=== PATIENT | female | born 1935 | race Caucasian/White ===

== ENCOUNTER → 2018-01-28 06:56 | Outpatient (CLI) | payer MEDICARE, SELFPAY ==
[2018-01-28 07:43] LABS: Add Manual Diff / Slide Review NO; Basophils Percent Auto 0.6 % (0-2); Eosinophils Percent Auto 2.9 % (2-4); Hematocrit 38.6 % (36-46); Hemoglobin 13.2 g/dL (12.0-16.0); Mean Corpuscular HGB Conc 34.1 % (30-36); Mean Corpuscular Hemoglobin 32.8 PG (26-34); Mean Corpuscular Volume 96.1 fL (80-100); Neutrophils Absolute Auto 2200 /uL (3000-5900); Neutrophils Percent Auto 51.5 % (50-75); Platelet Count 176 X10^3/uL (150-400); Red Blood Cell Count 4.02 X10^6/uL (4.0-5.2); Red Cell Distribution Width 12.7 % (11.6-14.8); White Blood Cell Count 4.2 X10^3/uL (4.5-11.0)
[2018-01-28 07:54] LABS: Alanine Aminotransferase 34 IU/L (9-52); Albumin 4.3 g/dL (3.5-5.0); Albumin Globulin Ratio 1.4 (1.0-2.8); Alkaline Phosphatase 105 U/L (38-126); Aspartate Aminotransferase 36 IU/L (14-36); BUN Creatinine Ratio 26.3 (6-22); Bilirubin Total 0.5 mg/dL (0.2-1.3); Blood Urea Nitrogen 21 mg/dL (7-17); Calcium 9.6 mg/dL (8.4-10.2); Carbon Dioxide 32 mmol/L (22-32); Chloride 102 mmol/L (98-107); Estimated Glomerular Filt Rate > 60.0 mL/min (>60); Globulin 3.1 g/dL (1.7-4.1); Glucose 96 mg/dL (80-110); HEMOLYSIS < 15 (0-50); Potassium 3.9 mmol/L (3.4-5.1); Sodium 143 mmol/L (137-145); Total Protein 7.4 g/dL (6.3-8.2)
[2018-01-28 09:08] LABS: Free T4, Direct Thyroxine 1.42 ng/dL (0.78-2.19)
== END ==
PROVIDERS: Family Provider Family Medicine; PCP Family Medicine; Visit Provider Family Medicine
DX: E03.9 Hypothyroidism, unspecified (principal)
CPT/HCPCS: 36415; 80053; 84439; 84443; 85025

== ENCOUNTER → 2018-02-09 09:16 | Outpatient (CLI) | payer MEDICARE, SELFPAY ==
--- NOTE | 2018-02-09 | DI.RAD.S_ITS ---
PROCEDURE: XR LUMBAR SPINE 2-3V INDICATIONS: Low back pain TECHNIQUE: 3 views of the lumbar spine were acquired. COMPARISON: None. FINDINGS: Bones: 5 [id number] vertebrae are present. There is grade 1 anterolisthesis of L4 over L5. No vertebral body compression fractures. No suspicious bony lesions. There is moderate degenerative disc disease at L4-L5. Severe facet arthropathy at L4-L5 and L5-S1. Soft tissues: Overlying bowel gas pattern is normal. Severe atherosclerosis. IMPRESSION: 1. Degenerative disc and facet disease in lumbar spine as described. 2. Osteopenia. Dictated by: Mike Roper M.D. on 02/09/2018 at 17:36 Approved by: Mike Roper M.D. on 02/09/2018 at 17:38
== END ==
PROVIDERS: Family Provider Family Medicine; PCP Family Medicine; Visit Provider Family Medicine
DX: M54.5 Low back pain (principal); M51.36 Other intervertebral disc degeneration, lumbar region
CPT/HCPCS: 72100

== ENCOUNTER 2018-03-04 09:45 | Outpatient (RCR) | payer MEDICARE, SELFPAY ==
--- NOTE | 2018-02-16 15:04 | PT.OIE ---
Current Diagnoses Radiculopathy, lumbar region (02/16/18) Sciatica, left side (02/16/18) Weakness (02/16/18) Injury of sciatic nerve at hip and thigh level, left leg, initial encounter (02/16/18) Provider Visit Care Team Role Provider Type Viky Seymour MD Attending Provider Physician Family Provider Primary Care Provider Specialty: Family Practice Address: [address] [place] [address], [facility] Email: Physical Therapy Initial Evaluation PT-OP-A Visit Information Start: 02/16/18 14:38 Freq: Status: Active Protocol: Document 02/16/18 11:15 DCW (Rec: 02/16/18 15:02 DCW [id number]) Out-Patient Physical Therapy Visit Information Visit Information Visit Type Initial Evaluation Visit Start Time 11:15 Visit Stop Time 12:00 Total Visit Minutes 45 Visit Number 1 Number of MUD MIXER OPERATOR Visits 0 Evaluation Information Evaluation Date 02/16/18 PT-OP-B Current Condition Start: 02/16/18 14:38 Freq: Status: Active Protocol: Document 02/16/18 11:15 DCW (Rec: 02/16/18 15:02 DCW [id number]) Current Condition History of Current Condition Onset Date s/p two weeks Current Complaints posterior left hip pain radiating to heel History of Current Condition Pt is an 82 year old female presenting with a two week history of posterior left hip pain. Pt notes pain is a 4/10 at worst, and will occasionally radiate to her left heel. Pt notes that her pain has improved over the last two weeks, especially after she began to spend less time in her recliner and sleep with a pillow between her legs. Pt cannot think of anything in particular that increases her pain, she just wanted to get it figured out before it got any worse. 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 Prior Functional Status Baseline Function- ADL's Independent Baseline Function- Mobility Independent Current Functional Impairments (Reported) Functional Limitations- ADL's Pain limits amount of time pt can sit in her recliner PT-OP-C Subjective Start: 02/16/18 14:38 Freq: Status: Active Protocol: Document 02/16/18 11:15 DCW (Rec: 02/16/18 15:04 DCW [id number]) OP-PT Pain Assessment Pain Assessment Grid Paper Pain Assessment Grid Completed Yes Location Left Posterior Hip Intensity 4 Scale Used Numeric (1 - 10) Description Sharp Shooting Radiating Location Posterior leg to heel PT-OP-F Manual Assessment Start: 02/16/18 14:38 Freq: Status: Active Protocol: Document 02/16/18 11:15 DCW (Rec: 02/16/18 15:02 DCW [id number]) Manual Assessments Soft Tissue Assessment Soft Tissue Mobility Assessment Moderate tone with palpation of left piriformis, complaints of tenderness. Joint Mobility Assessment Joint Mobility Assessment Mild pain with mobilization of left SI joint, however no indication of sacral malalignment or torsion PT-OP-K Range of Motion Start: 02/16/18 14:38 Freq: Status: Active Protocol: Document 02/16/18 11:15 DCW (Rec: 02/16/18 15:02 DCW [id number]) Lumbar Spine Range of Motion Lumbar Spine Active Percentage Testing Position Standing Flexion 90 Extension 90 Rotation Left 80 Rotation Right 80 Lateral Flexion Left 80 Lateral Flexion Right 80 Comments Lumbar spine WFL, no complaints of pain. PT-OP-L Special Tests Start: 02/16/18 14:38 Freq: Status: Active Protocol: Document 02/16/18 11:15 DCW (Rec: 02/16/18 15:02 DCW [id number]) Special Tests Lumbar Spine Special Tests Straight Leg Raise Test Results Negative Standing Flexion Test Results Negative Slump Test Results Negative Hip Special Tests Piriformis Test Results Positive - replicated radicular pain ESTELA Test Results Mild complaint of left posterior hip pain Comments Pain more in area of piriformis PT-OP-M Strength Start: 02/16/18 14:38 Freq: Status: Active Protocol: Document 02/16/18 11:15 DCW (Rec: 02/16/18 15:02 DCW [id number]) Hip Strength Hip Manual Muscle Testing Left Flexion (L2) 4+ Good+ Extension (S1) 4+ Good+ Abduction 4 Good Adduction 4+ Good+ External Rotation 5 Normal Internal Rotation 4- Good- PT-OP-Q Treatments Start: 02/16/18 14:38 Freq: Status: Active Protocol: Document 02/16/18 11:15 DCW (Rec: 02/16/18 15:02 [facility] [id number]) Therapeutic Exercises Sidelying Exercises 1 Sidelying Exercise Name Reverse Clam Shells Side left Sitting Exercises 1 Sitting Exercise Name Seated Figure-4 Piriformis stretch Side left PT-OP-T Assessment and Plan Start: 02/16/18 14:38 Freq: Status: Active Protocol: Document 02/16/18 11:15 DCW (Rec: 02/16/18 15:02 [facility] [id number]) Physical Therapy Assessment Rehab Potential Rehabilitation Potential Good Evaluation Complexity Number of Personal Factors/Comorbidities 1-2 Number of Body Systems Impaired 1-2 Clinical Presentation at Evaluation Stable Impairments Impairments Pain Soft Tissue Mobility Strength Goals Three Impairment Piriformis Tone Short Term Goal (STG) Piriformis tone to mild with palpation STG Duration 03/02/18 [place] Mold Maker Goal (LTG) Pt to report no incidence of radicular pain over two weeks LTG Duration 03/23/18 Two Impairment Strength Short Term Goal (STG) Left hip IR to 4+/5 STG Duration 03/02/18 [place] Mold Maker Goal (LTG) Left hip IR to 5/5 LTG Duration 03/23/18 One Impairment Activity tolerance Short Term Goal (STG) Pt to report no increased pain while sitting in her recliner reading for 1 hour STG Duration 03/02/18 Assessment Summary Assessment Pt presents with signs and symptoms of a piriformis strain with occasional sciatic impingement. Pt is already improving, and will likely benefit from stretching and strengthening HEP in an effort to decrease piriformis tone and strengthen her internal rotators, as well as skilled manual therapy for additional decreased tone. Physical Therapy Plan Frequency and Duration Frequency of Treatment 2x/Week Duration of Treatment 6 weeks Plan of Care Start Date 02/16/18 Plan of Care End Date 03/30/18 Therapeutic Interventions Therapeutic Interventions Aquatic Therapy Home Exercise Program Joint Mobilizations Manual Therapy Neuromuscular Re-education Soft Tissue Mobilization Therapeutic Exercises Modalities Cold Pack/Ice Massage Electric Stimulation Hot Packs Ultrasound Next Visit Focus/Plan Next Note Type Treatment Note Next Visit Plan Assess effectiveness of HEP, flexibility/strength training, STM
--- NOTE | 2018-02-16 15:04 | PT.OPPOC ---
Current Diagnoses Radiculopathy, lumbar region (02/16/18) Sciatica, left side (02/16/18) Weakness (02/16/18) Injury of sciatic nerve at hip and thigh level, left leg, initial encounter (02/16/18) Provider Visit Care Team Role Provider Type Viky Seymour MD Attending Provider Physician Family Provider Primary Care Provider Specialty: Family Practice Address: [address] [place] [address], [facility] Email: Plan Of Care PT-OP-T Assessment and Plan Start: 02/16/18 14:38 Freq: Status: Active Protocol: Document 02/16/18 11:15 DCW (Rec: 02/16/18 15:02 DCW [id number]) Physical Therapy Assessment Rehab Potential Rehabilitation Potential Good Evaluation Complexity Number of Personal Factors/Comorbidities 1-2 Number of Body Systems Impaired 1-2 Clinical Presentation at Evaluation Stable Impairments Impairments Pain Soft Tissue Mobility Strength Goals Three Impairment Piriformis Tone Short Term Goal (STG) Piriformis tone to mild with palpation STG Duration 03/02/18 [facility] Goal (LTG) Pt to report no incidence of radicular pain over two weeks LTG Duration 03/23/18 Two Impairment Strength Short Term Goal (STG) Left hip IR to 4+/5 STG Duration 03/02/18 Business Employment Specialist Goal (LTG) Left hip IR to 5/5 LTG Duration 03/23/18 One Impairment Activity tolerance Short Term Goal (STG) Pt to report no increased pain while sitting in her recliner reading for 1 hour STG Duration 03/02/18 Assessment Summary Assessment Pt presents with signs and symptoms of a piriformis strain with occasional sciatic impingement. Pt is already improving, and will likely benefit from stretching and strengthening HEP in an effort to decrease piriformis tone and strengthen her internal rotators, as well as skilled manual therapy for additional decreased tone. Physical Therapy Plan Frequency and Duration Frequency of Treatment 2x/Week Duration of Treatment 6 weeks Plan of Care Start Date 02/16/18 Plan of Care End Date 03/30/18 Therapeutic Interventions Therapeutic Interventions Aquatic Therapy Home Exercise Program Joint Mobilizations Manual Therapy Neuromuscular Re-education Soft Tissue Mobilization Therapeutic Exercises Modalities Cold Pack/Ice Massage Electric Stimulation Hot Packs Ultrasound Next Visit Focus/Plan Next Note Type Treatment Note Next Visit Plan Assess effectiveness of HEP, flexibility/strength training, STM Plan of Care Dates Plan of Care Start Date 02/16/18 Plan of Care End Date 03/30/18 Please Sign and Return: I have reviewed this Plan of Care and certify that the skilled therapy services above are required to meet the patient?s needs. Physician Signature Date Printed Name and Credentials Clinical Instructor Signature Printed Name and Credentials
--- NOTE | 2018-02-19 10:29 | PT.OTN ---
Current Diagnoses Radiculopathy, lumbar region (02/19/18) Physical Therapy Treatment Note PT-OP-A Visit Information Start: 02/16/18 14:38 Freq: Status: Active Protocol: Document 02/19/18 09:45 DCW (Rec: 02/19/18 10:29 DCW [id number]) Out-Patient Physical Therapy Visit Information Visit Information Visit Type Treatment Note Visit Start Time 09:45 Visit Stop Time 10:30 Total Visit Minutes 45 Visit Number 2 Number of FLORAL MERCHANDISER Visits 0 Evaluation Information Evaluation Date 02/16/18 PT-OP-B Current Condition Start: 02/16/18 14:38 Freq: Status: Active Protocol: Document 02/16/18 11:15 DCW (Rec: 02/16/18 15:02 DCW [id number]) Current Condition History of Current Condition Onset Date s/p two weeks Current Complaints posterior left hip pain radiating to heel History of Current Condition Pt is an 82 year old female presenting with a two week history of posterior left hip pain. Pt notes pain is a 4/10 at worst, and will occasionally radiate to her left heel. Pt notes that her pain has improved over the last two weeks, especially after she began to spend less time in her recliner and sleep with a pillow between her legs. Pt cannot think of anything in particular that increases her pain, she just wanted to get it figured out before it got any worse. 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 Prior Functional Status Baseline Function- ADL's Independent Baseline Function- Mobility Independent Current Functional Impairments (Reported) Functional Limitations- ADL's Pain limits amount of time pt can sit in her recliner PT-OP-C Subjective Start: 02/16/18 14:38 Freq: Status: Active Protocol: Document 02/19/18 09:45 DCW (Rec: 02/19/18 10:29 DCW [id number]) OP-PT Subjective Patient Comments Patient Comments Pt reports she walked the [employer] loop this morning, and reports she felt pretty good afterward. PT-OP-F Manual Assessment Start: 02/16/18 14:38 Freq: Status: Active Protocol: Document 02/16/18 11:15 DCW (Rec: 02/16/18 15:02 DCW [id number]) Manual Assessments Soft Tissue Assessment Soft Tissue Mobility Assessment Moderate tone with palpation of left piriformis, complaints of tenderness. Joint Mobility Assessment Joint Mobility Assessment Mild pain with mobilization of left SI joint, however no indication of sacral malalignment or torsion PT-OP-K Range of Motion Start: 02/16/18 14:38 Freq: Status: Active Protocol: Document 02/16/18 11:15 DCW (Rec: 02/16/18 15:02 DCW [id number]) Lumbar Spine Range of Motion Lumbar Spine Active Percentage Testing Position Standing Flexion 90 Extension 90 Rotation Left 80 Rotation Right 80 Lateral Flexion Left 80 Lateral Flexion Right 80 Comments Lumbar spine WFL, no complaints of pain. PT-OP-L Special Tests Start: 02/16/18 14:38 Freq: Status: Active Protocol: Document 02/16/18 11:15 DCW (Rec: 02/16/18 15:02 DCW [id number]) Special Tests Lumbar Spine Special Tests Straight Leg Raise Test Results Negative Standing Flexion Test Results Negative Slump Test Results Negative Hip Special Tests Piriformis Test Results Positive - replicated radicular pain ESTELA Test Results Mild complaint of left posterior hip pain Comments Pain more in area of piriformis PT-OP-M Strength Start: 02/16/18 14:38 Freq: Status: Active Protocol: Document 02/16/18 11:15 DCW (Rec: 02/16/18 15:02 DCW [id number]) Hip Strength Hip Manual Muscle Testing Left Flexion (L2) 4+ Good+ Extension (S1) 4+ Good+ Abduction 4 Good Adduction 4+ Good+ External Rotation 5 Normal Internal Rotation 4- Good- PT-OP-Q Treatments Start: 02/16/18 14:38 Freq: Status: Active Protocol: Document 02/19/18 09:45 DCW (Rec: 02/19/18 10:29 DCW [id number]) Gym Equipment Shuttle Recovery Unilateral Squats Resistance 62# Shuttle Recovery Platform Stable Bilateral Squats Resistance 100# Shuttle Recovery Platform Stable Therapeutic Exercises Supine Exercises 1 Supine Exercise Name Manual piriformis stretch Side left Standing Exercises 2 Standing Exercise Name Sit<->Stand squats Side bilateral 1 Standing Exercise Name Knee on stool, IR vs Resistance Side left Resistance Lv 2 Equipment Used T-band Other Exercises 1 Other Exercise Name Resisted Side-stepping Side bilateral Resistance Yellow Equipment Used T-band Manual Therapy Treatment Soft Tissue Mobilization 1 Body Location Piriformis Mobilization Type Strumming Sustained Pressure Trigger Point Release Intensity/Depth Moderate Body Position Prone Joint Mobilizations 1 Joint SI joint mobilization Grade III Body Position Prone PT-OP-T Assessment and Plan Start: 02/16/18 14:38 Freq: Status: Active Protocol: Document 02/19/18 09:45 DCW (Rec: 02/19/18 10:29 DCW [id number]) Physical Therapy Assessment Impairments Impairments Pain Soft Tissue Mobility Strength Goals Three Impairment Piriformis Tone Short Term Goal (STG) Piriformis tone to mild with palpation STG Duration 03/02/18 Bicycle I Assembler Goal (LTG) Pt to report no incidence of radicular pain over two weeks LTG Duration 03/23/18 Two Impairment Strength Short Term Goal (STG) Left hip IR to 4+/5 STG Duration 03/02/18 Bicycle I Assembler Goal (LTG) Left hip IR to 5/5 LTG Duration 03/23/18 One Impairment Activity tolerance Short Term Goal (STG) Pt to report no increased pain while sitting in her recliner reading for 1 hour STG Duration 03/02/18 Progress Towards Goals Progress Towards Goals Progressing Toward Goals Assessment Summary Assessment Pt making good progress already, reporting no real pain, she is just able to feel it down her leg. Pt less tender to palpation, and had no difficulty with addition of new TherEx. Physical Therapy Plan Frequency and Duration Frequency of Treatment 2x/Week Duration of Treatment 6 weeks Plan of Care Start Date 02/16/18 Plan of Care End Date 03/30/18 Therapeutic Interventions Therapeutic Interventions Aquatic Therapy Home Exercise Program Joint Mobilizations Manual Therapy Neuromuscular Re-education Soft Tissue Mobilization Therapeutic Exercises Modalities Cold Pack/Ice Massage Electric Stimulation Hot Packs Ultrasound Next Visit Focus/Plan Next Note Type Treatment Note Next Visit Plan Assess effectiveness of HEP, flexibility/strength training, STM
--- NOTE | 2018-02-22 15:55 | PT.OTN ---
Current Diagnoses Radiculopathy, lumbar region (02/22/18) Physical Therapy Treatment Note PT-OP-A Visit Information Start: 02/16/18 14:38 Freq: Status: Active Protocol: Document 02/22/18 15:15 DCW (Rec: 02/22/18 15:55 DCW [id number]) Out-Patient Physical Therapy Visit Information Visit Information Visit Type Treatment Note Visit Start Time 09:45 Visit Stop Time 10:30 Total Visit Minutes 45 Visit Number 2 Number of ALUMINUM CONTAINER TESTER Visits 0 Evaluation Information Evaluation Date 02/16/18 PT-OP-B Current Condition Start: 02/16/18 14:38 Freq: Status: Active Protocol: Document 02/16/18 11:15 DCW (Rec: 02/16/18 15:02 DCW [id number]) Current Condition History of Current Condition Onset Date s/p two weeks Current Complaints posterior left hip pain radiating to heel History of Current Condition Pt is an 82 year old female presenting with a two week history of posterior left hip pain. Pt notes pain is a 4/10 at worst, and will occasionally radiate to her left heel. Pt notes that her pain has improved over the last two weeks, especially after she began to spend less time in her recliner and sleep with a pillow between her legs. Pt cannot think of anything in particular that increases her pain, she just wanted to get it figured out before it got any worse. 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 Prior Functional Status Baseline Function- ADL's Independent Baseline Function- Mobility Independent Current Functional Impairments (Reported) Functional Limitations- ADL's Pain limits amount of time pt can sit in her recliner PT-OP-C Subjective Start: 02/16/18 14:38 Freq: Status: Active Protocol: Document 02/22/18 15:15 DCW (Rec: 02/22/18 15:55 DCW [id number]) OP-PT Subjective Patient Comments Patient Comments Pt reports she is feeling pretty good and loose after walking [employer] and attending her Strength and Balance class this morning. PT-OP-F Manual Assessment Start: 02/16/18 14:38 Freq: Status: Active Protocol: Document 02/16/18 11:15 DCW (Rec: 02/16/18 15:02 DCW [id number]) Manual Assessments Soft Tissue Assessment Soft Tissue Mobility Assessment Moderate tone with palpation of left piriformis, complaints of tenderness. Joint Mobility Assessment Joint Mobility Assessment Mild pain with mobilization of left SI joint, however no indication of sacral malalignment or torsion PT-OP-K Range of Motion Start: 02/16/18 14:38 Freq: Status: Active Protocol: Document 02/16/18 11:15 DCW (Rec: 02/16/18 15:02 DCW [id number]) Lumbar Spine Range of Motion Lumbar Spine Active Percentage Testing Position Standing Flexion 90 Extension 90 Rotation Left 80 Rotation Right 80 Lateral Flexion Left 80 Lateral Flexion Right 80 Comments Lumbar spine WFL, no complaints of pain. PT-OP-L Special Tests Start: 02/16/18 14:38 Freq: Status: Active Protocol: Document 02/16/18 11:15 DCW (Rec: 02/16/18 15:02 DCW [id number]) Special Tests Lumbar Spine Special Tests Straight Leg Raise Test Results Negative Standing Flexion Test Results Negative Slump Test Results Negative Hip Special Tests Piriformis Test Results Positive - replicated radicular pain ESTELA Test Results Mild complaint of left posterior hip pain Comments Pain more in area of piriformis PT-OP-M Strength Start: 02/16/18 14:38 Freq: Status: Active Protocol: Document 02/16/18 11:15 DCW (Rec: 02/16/18 15:02 DCW [id number]) Hip Strength Hip Manual Muscle Testing Left Flexion (L2) 4+ Good+ Extension (S1) 4+ Good+ Abduction 4 Good Adduction 4+ Good+ External Rotation 5 Normal Internal Rotation 4- Good- PT-OP-Q Treatments Start: 02/16/18 14:38 Freq: Status: Active Protocol: Document 02/22/18 15:15 DCW (Rec: 02/22/18 15:55 DCW [id number]) Gym Equipment Cable Column (Body Solid) Hip Adduction Resistance 4 plates Hip Abduction Resistance 3 plates Shuttle Recovery Unilateral Squats Resistance 62# Shuttle Recovery Platform Stable Bilateral Squats Resistance 100# Shuttle Recovery Platform Stable Therapeutic Exercises Supine Exercises 1 Supine Exercise Name Manual piriformis stretch Side left Standing Exercises 2 Standing Exercise Name Sit<->Stand squats Side bilateral 1 Standing Exercise Name Knee on stool, IR vs Resistance Side left Resistance Lv 2 Equipment Used T-band Other Exercises 1 Other Exercise Name Resisted Side-stepping Side bilateral Resistance Yellow Equipment Used T-band Manual Therapy Treatment Soft Tissue Mobilization 1 Body Location Piriformis Mobilization Type Strumming Sustained Pressure Trigger Point Release Intensity/Depth Moderate Body Position Prone Joint Mobilizations 1 Joint SI joint mobilization Grade III Body Position Prone PT-OP-T Assessment and Plan Start: 02/16/18 14:38 Freq: Status: Active Protocol: Document 02/22/18 15:15 DCW (Rec: 02/22/18 15:55 DCW [id number]) Physical Therapy Assessment Goals Three Impairment Piriformis Tone Short Term Goal (STG) Piriformis tone to mild with palpation STG Duration 03/02/18 Wrong Address Clerk Goal (LTG) Pt to report no incidence of radicular pain over two weeks LTG Duration 03/23/18 Two Impairment Strength Short Term Goal (STG) Left hip IR to 4+/5 STG Duration 03/02/18 Wrong Address Clerk Goal (LTG) Left hip IR to 5/5 LTG Duration 03/23/18 One Impairment Activity tolerance Short Term Goal (STG) Pt to report no increased pain while sitting in her recliner reading for 1 hour STG Duration 03/02/18 Progress Towards Goals Progress Towards Goals Progressing Toward Goals Assessment Summary Assessment Pt continues to progress well, will likely only need 1-2 more weeks of skilled therapy. Physical Therapy Plan Frequency and Duration Frequency of Treatment 2x/Week Duration of Treatment 6 weeks Plan of Care Start Date 02/16/18 Plan of Care End Date 03/30/18 Therapeutic Interventions Therapeutic Interventions Aquatic Therapy Home Exercise Program Joint Mobilizations Manual Therapy Neuromuscular Re-education Soft Tissue Mobilization Therapeutic Exercises Modalities Cold Pack/Ice Massage Electric Stimulation Hot Packs Ultrasound Next Visit Focus/Plan Next Note Type Treatment Note Next Visit Plan Assess effectiveness of HEP, flexibility/strength training, STM
--- NOTE | 2018-02-25 14:28 | PT.OTN ---
Current Diagnoses Radiculopathy, lumbar region (02/25/18) Physical Therapy Treatment Note PT-OP-A Visit Information Start: 02/16/18 14:38 Freq: Status: Active Protocol: Document 02/25/18 13:45 DCW (Rec: 02/25/18 14:25 DCW [id number]) Out-Patient Physical Therapy Visit Information Visit Information Visit Type Treatment Note Visit Start Time 13:45 Visit Stop Time 14:35 Total Visit Minutes 50 Visit Number 4 Number of SUGAR PRESSER Visits 0 Evaluation Information Evaluation Date 02/16/18 PT-OP-B Current Condition Start: 02/16/18 14:38 Freq: Status: Active Protocol: Document 02/16/18 11:15 DCW (Rec: 02/16/18 15:02 DCW [id number]) Current Condition History of Current Condition Onset Date s/p two weeks Current Complaints posterior left hip pain radiating to heel History of Current Condition Pt is an 82 year old female presenting with a two week history of posterior left hip pain. Pt notes pain is a 4/10 at worst, and will occasionally radiate to her left heel. Pt notes that her pain has improved over the last two weeks, especially after she began to spend less time in her recliner and sleep with a pillow between her legs. Pt cannot think of anything in particular that increases her pain, she just wanted to get it figured out before it got any worse. 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 Prior Functional Status Baseline Function- ADL's Independent Baseline Function- Mobility Independent Current Functional Impairments (Reported) Functional Limitations- ADL's Pain limits amount of time pt can sit in her recliner PT-OP-C Subjective Start: 02/16/18 14:38 Freq: Status: Active Protocol: Document 02/25/18 13:45 DCW (Rec: 02/25/18 14:25 DCW [id number]) OP-PT Subjective Patient Comments Patient Comments Pt reports she is doing well today. PT-OP-F Manual Assessment Start: 02/16/18 14:38 Freq: Status: Active Protocol: Document 02/16/18 11:15 DCW (Rec: 02/16/18 15:02 DCW [id number]) Manual Assessments Soft Tissue Assessment Soft Tissue Mobility Assessment Moderate tone with palpation of left piriformis, complaints of tenderness. Joint Mobility Assessment Joint Mobility Assessment Mild pain with mobilization of left SI joint, however no indication of sacral malalignment or torsion PT-OP-K Range of Motion Start: 02/16/18 14:38 Freq: Status: Active Protocol: Document 02/16/18 11:15 DCW (Rec: 02/16/18 15:02 DCW [id number]) Lumbar Spine Range of Motion Lumbar Spine Active Percentage Testing Position Standing Flexion 90 Extension 90 Rotation Left 80 Rotation Right 80 Lateral Flexion Left 80 Lateral Flexion Right 80 Comments Lumbar spine WFL, no complaints of pain. PT-OP-L Special Tests Start: 02/16/18 14:38 Freq: Status: Active Protocol: Document 02/16/18 11:15 DCW (Rec: 02/16/18 15:02 DCW [id number]) Special Tests Lumbar Spine Special Tests Straight Leg Raise Test Results Negative Standing Flexion Test Results Negative Slump Test Results Negative Hip Special Tests Piriformis Test Results Positive - replicated radicular pain ESTELA Test Results Mild complaint of left posterior hip pain Comments Pain more in area of piriformis PT-OP-M Strength Start: 02/16/18 14:38 Freq: Status: Active Protocol: Document 02/16/18 11:15 DCW (Rec: 02/16/18 15:02 DCW [id number]) Hip Strength Hip Manual Muscle Testing Left Flexion (L2) 4+ Good+ Extension (S1) 4+ Good+ Abduction 4 Good Adduction 4+ Good+ External Rotation 5 Normal Internal Rotation 4- Good- PT-OP-Q Treatments Start: 02/16/18 14:38 Freq: Status: Active Protocol: Document 02/25/18 13:45 DCW (Rec: 02/25/18 14:25 DCW [id number]) Gym Equipment Cable Column (Body Solid) Hip Adduction Resistance 4 plates Hip Abduction Resistance 3 plates Shuttle Recovery Unilateral Squats Resistance 62# Shuttle Recovery Platform Stable Bilateral Squats Resistance 100# Shuttle Recovery Platform Stable Therapeutic Exercises Standing Exercises 1 Standing Exercise Name Knee on stool, IR vs Resistance Side left Resistance Lv 2 Equipment Used T-band Other Exercises 2 Other Exercise Name Resisted Forward/Backward Side bilateral Resistance Yellow Equipment Used T-band 1 Other Exercise Name Resisted Side-stepping Side bilateral Resistance Yellow Equipment Used T-band Manual Therapy Treatment Soft Tissue Mobilization 1 Body Location Piriformis Mobilization Type Strumming Sustained Pressure Trigger Point Release Intensity/Depth Moderate Body Position Prone Joint Mobilizations 1 Joint SI joint mobilization Grade III Body Position Prone PT-OP-R Modalities Start: 02/16/18 14:38 Freq: Status: Active Protocol: Document 02/25/18 13:45 DCW (Rec: 02/25/18 14:26 DCW [id number]) Hot Pack/Cold Pack Treatment Hot Pack Location Lumbar spine Patient Position Prone Treatment Duration (minutes) 10 Patient Tolerance Good PT-OP-T Assessment and Plan Start: 02/16/18 14:38 Freq: Status: Active Protocol: Document 02/25/18 13:45 DCW (Rec: 02/25/18 14:25 DCW [id number]) Physical Therapy Assessment Impairments Impairments Pain Soft Tissue Mobility Strength Goals Three Impairment Piriformis Tone Short Term Goal (STG) Piriformis tone to mild with palpation STG Duration 03/02/18 Physician Pediatrician Goal (LTG) Pt to report no incidence of radicular pain over two weeks LTG Duration 03/23/18 Two Impairment Strength Short Term Goal (STG) Left hip IR to 4+/5 STG Duration 03/02/18 Physician Pediatrician Goal (LTG) Left hip IR to 5/5 LTG Duration 03/23/18 One Impairment Activity tolerance Short Term Goal (STG) Pt to report no increased pain while sitting in her recliner reading for 1 hour STG Duration 03/02/18 Progress Towards Goals Progress Towards Goals Progressing Toward Goals Assessment Summary Assessment Still doing well, much less tone throughout pt's posterior hip and low back. Physical Therapy Plan Frequency and Duration Frequency of Treatment 2x/Week Duration of Treatment 6 weeks Plan of Care Start Date 02/16/18 Plan of Care End Date 03/30/18 Therapeutic Interventions Therapeutic Interventions Aquatic Therapy Home Exercise Program Joint Mobilizations Manual Therapy Neuromuscular Re-education Soft Tissue Mobilization Therapeutic Exercises Modalities Cold Pack/Ice Massage Electric Stimulation Hot Packs Ultrasound Next Visit Focus/Plan Next Note Type Treatment Note Next Visit Plan Flexibility/strength training, STM
--- NOTE | 2018-03-02 12:00 | PT.OTN ---
Current Diagnoses Radiculopathy, lumbar region (03/02/18) Physical Therapy Treatment Note PT-OP-A Visit Information Start: 02/16/18 14:38 Freq: Status: Active Protocol: Document 03/02/18 11:15 DCW (Rec: 03/02/18 12:00 DCW [id number]) Out-Patient Physical Therapy Visit Information Visit Information Visit Type Treatment Note Visit Start Time 11:15 Visit Stop Time 12:05 Total Visit Minutes 50 Visit Number 5 Number of ENTREPRENEURSHIP PROGRAM DIRECTOR Visits 0 Evaluation Information Evaluation Date 02/16/18 PT-OP-B Current Condition Start: 02/16/18 14:38 Freq: Status: Active Protocol: Document 02/16/18 11:15 DCW (Rec: 02/16/18 15:02 DCW [id number]) Current Condition History of Current Condition Onset Date s/p two weeks Current Complaints posterior left hip pain radiating to heel History of Current Condition Pt is an 82 year old female presenting with a two week history of posterior left hip pain. Pt notes pain is a 4/10 at worst, and will occasionally radiate to her left heel. Pt notes that her pain has improved over the last two weeks, especially after she began to spend less time in her recliner and sleep with a pillow between her legs. Pt cannot think of anything in particular that increases her pain, she just wanted to get it figured out before it got any worse. 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 Prior Functional Status Baseline Function- ADL's Independent Baseline Function- Mobility Independent Current Functional Impairments (Reported) Functional Limitations- ADL's Pain limits amount of time pt can sit in her recliner PT-OP-C Subjective Start: 02/16/18 14:38 Freq: Status: Active Protocol: Document 03/02/18 11:15 DCW (Rec: 03/02/18 12:00 DCW [id number]) OP-PT Subjective Patient Comments Patient Comments Pt is doing well, feels like she is improving PT-OP-F Manual Assessment Start: 02/16/18 14:38 Freq: Status: Active Protocol: Document 02/16/18 11:15 DCW (Rec: 02/16/18 15:02 DCW [id number]) Manual Assessments Soft Tissue Assessment Soft Tissue Mobility Assessment Moderate tone with palpation of left piriformis, complaints of tenderness. Joint Mobility Assessment Joint Mobility Assessment Mild pain with mobilization of left SI joint, however no indication of sacral malalignment or torsion PT-OP-K Range of Motion Start: 02/16/18 14:38 Freq: Status: Active Protocol: Document 02/16/18 11:15 DCW (Rec: 02/16/18 15:02 DCW [id number]) Lumbar Spine Range of Motion Lumbar Spine Active Percentage Testing Position Standing Flexion 90 Extension 90 Rotation Left 80 Rotation Right 80 Lateral Flexion Left 80 Lateral Flexion Right 80 Comments Lumbar spine WFL, no complaints of pain. PT-OP-L Special Tests Start: 02/16/18 14:38 Freq: Status: Active Protocol: Document 02/16/18 11:15 DCW (Rec: 02/16/18 15:02 DCW [id number]) Special Tests Lumbar Spine Special Tests Straight Leg Raise Test Results Negative Standing Flexion Test Results Negative Slump Test Results Negative Hip Special Tests Piriformis Test Results Positive - replicated radicular pain ESTELA Test Results Mild complaint of left posterior hip pain Comments Pain more in area of piriformis PT-OP-M Strength Start: 02/16/18 14:38 Freq: Status: Active Protocol: Document 02/16/18 11:15 DCW (Rec: 02/16/18 15:02 DCW [id number]) Hip Strength Hip Manual Muscle Testing Left Flexion (L2) 4+ Good+ Extension (S1) 4+ Good+ Abduction 4 Good Adduction 4+ Good+ External Rotation 5 Normal Internal Rotation 4- Good- PT-OP-Q Treatments Start: 02/16/18 14:38 Freq: Status: Active Protocol: Document 03/02/18 11:15 DCW (Rec: 03/02/18 12:00 DCW [id number]) Gym Equipment Cable Column (Body Solid) Hip Adduction Resistance 4 plates Hip Abduction Resistance 3 plates Shuttle Recovery Unilateral Squats Resistance 62# Shuttle Recovery Platform Stable Bilateral Squats Resistance 100# Shuttle Recovery Platform Stable Therapeutic Exercises Supine Exercises 1 Supine Exercise Name Manual piriformis stretch Side left Other Exercises 2 Other Exercise Name Resisted Forward/Backward Side bilateral Resistance Yellow Equipment Used T-band 1 Other Exercise Name Resisted Side-stepping Side bilateral Resistance Yellow Equipment Used T-band Manual Therapy Treatment Soft Tissue Mobilization 2 Body Location Quadratus Lumborum Mobilization Type Sustained Pressure Trigger Point Release Intensity/Depth Moderate Body Position Sidelying 1 Body Location Piriformis Mobilization Type Strumming Sustained Pressure Trigger Point Release Intensity/Depth Moderate Body Position Prone Joint Mobilizations 1 Joint SI joint mobilization Grade III Body Position Prone Manual Traction Lumbar Details LE Long-axis traction Body Position Supine PT-OP-R Modalities Start: 02/16/18 14:38 Freq: Status: Active Protocol: Document 03/02/18 11:15 DCW (Rec: 03/02/18 12:00 DCW [id number]) Hot Pack/Cold Pack Treatment Hot Pack Location Lumbar spine Patient Position Prone Treatment Duration (minutes) 10 Patient Tolerance Good PT-OP-T Assessment and Plan Start: 02/16/18 14:38 Freq: Status: Active Protocol: Document 03/02/18 11:15 DCW (Rec: 03/02/18 12:00 DCW [id number]) Physical Therapy Assessment Impairments Impairments Pain Soft Tissue Mobility Strength Goals Three Impairment Piriformis Tone Short Term Goal (STG) Piriformis tone to mild with palpation STG Duration 03/02/18 Shelter Goal (LTG) Pt to report no incidence of radicular pain over two weeks LTG Duration 03/23/18 Two Impairment Strength Short Term Goal (STG) Left hip IR to 4+/5 STG Duration 03/02/18 Airline Reservationist Goal (LTG) Left hip IR to 5/5 LTG Duration 03/23/18 One Impairment Activity tolerance Short Term Goal (STG) Pt to report no increased pain while sitting in her recliner reading for 1 hour STG Duration 03/02/18 Progress Towards Goals Progress Towards Goals Progressing Toward Goals Assessment Summary Assessment Pt likely approaching discharge, will reassess within the next 1-2 visits Physical Therapy Plan Frequency and Duration Frequency of Treatment 2x/Week Duration of Treatment 6 weeks Plan of Care Start Date 02/16/18 Plan of Care End Date 03/30/18 Therapeutic Interventions Therapeutic Interventions Aquatic Therapy Home Exercise Program Joint Mobilizations Manual Therapy Neuromuscular Re-education Soft Tissue Mobilization Therapeutic Exercises Modalities Cold Pack/Ice Massage Electric Stimulation Hot Packs Ultrasound Next Visit Focus/Plan Next Note Type Treatment Note Next Visit Plan Flexibility/strength training, STM
--- NOTE | 2018-03-04 10:33 | PT.OTN ---
Current Diagnoses Radiculopathy, lumbar region (03/04/18) Physical Therapy Treatment Note PT-OP-A Visit Information Start: 02/16/18 14:38 Freq: Status: Active Protocol: Document 03/04/18 09:45 DCW (Rec: 03/04/18 10:31 [facility] [id number]) Out-Patient Physical Therapy Visit Information Visit Information Visit Type Discharge Summary Visit Start Time 09:45 Visit Stop Time 10:25 Total Visit Minutes 40 Visit Number 6 Number of SYSTEM SUPPORT ANALYST Visits 0 Evaluation Information Evaluation Date 02/16/18 PT-OP-B Current Condition Start: 02/16/18 14:38 Freq: Status: Active Protocol: Document 03/04/18 09:45 DCW (Rec: 03/04/18 10:32 DCW [id number]) Current Condition History of Current Condition Onset Date s/p two weeks Current Complaints posterior left hip pain radiating to heel History of Current Condition Pt is an 82 year old female presenting with a two week history of posterior left hip pain. Pt notes pain is a 4/10 at worst, and will occasionally radiate to her left heel. Pt notes that her pain has improved over the last two weeks, especially after she began to spend less time in her recliner and sleep with a pillow between her legs. Pt cannot think of anything in particular that increases her pain, she just wanted to get it figured out before it got any worse. 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 Prior Functional Status Baseline Function- ADL's Independent Baseline Function- Mobility Independent Current Functional Impairments (Reported) Functional Limitations- ADL's No limitations PT-OP-C Subjective Start: 02/16/18 14:38 Freq: Status: Active Protocol: Document 03/04/18 09:45 DCW (Rec: 03/04/18 10:31 DCW [id number]) OP-PT Subjective Patient Comments Patient Comments Pt cannot remember the last time she had any radicular pain, has no complaints at this time. PT-OP-F Manual Assessment Start: 02/16/18 14:38 Freq: Status: Active Protocol: Document 03/04/18 09:45 DCW (Rec: 03/04/18 10:32 DCW [id number]) Manual Assessments Soft Tissue Assessment Soft Tissue Mobility Assessment Minimal piriformis tone Joint Mobility Assessment Joint Mobility Assessment No complaints of pain at SI joint PT-OP-K Range of Motion Start: 02/16/18 14:38 Freq: Status: Active Protocol: Document 02/16/18 11:15 DCW (Rec: 02/16/18 15:02 DCW [id number]) Lumbar Spine Range of Motion Lumbar Spine Active Percentage Testing Position Standing Flexion 90 Extension 90 Rotation Left 80 Rotation Right 80 Lateral Flexion Left 80 Lateral Flexion Right 80 Comments Lumbar spine WFL, no complaints of pain. PT-OP-L Special Tests Start: 02/16/18 14:38 Freq: Status: Active Protocol: Document 03/04/18 09:45 DCW (Rec: 03/04/18 10:32 DCW [id number]) Special Tests Hip Special Tests Piriformis Test Results Negative ESTELA Test Results Negative PT-OP-M Strength Start: 02/16/18 14:38 Freq: Status: Active Protocol: Document 03/04/18 09:45 DCW (Rec: 03/04/18 10:32 DCW [id number]) Hip Strength Hip Manual Muscle Testing Left Flexion (L2) 4+ Good+ Extension (S1) 4+ Good+ Abduction 4+ Good+ Adduction 4+ Good+ External Rotation 5 Normal Internal Rotation 4+ Good+ PT-OP-Q Treatments Start: 02/16/18 14:38 Freq: Status: Active Protocol: Document 03/04/18 09:45 DCW (Rec: 03/04/18 10:31 DCW [id number]) Gym Equipment Cable Column (Body Solid) Hip Adduction Resistance 4 plates Hip Abduction Resistance 3 plates Shuttle Recovery Unilateral Squats Resistance 62# L, 75# R Shuttle Recovery Platform Stable Bilateral Squats Resistance 112# Shuttle Recovery Platform Stable Therapeutic Ball 2 Exercise Details Hip/Knee flex/ext /c feet on T -ball vs resistance Ball Size/Color Blue - 45 cm Lv 2 T-band 1 Exercise Details Bridging /c heels on T-ball Ball Size/Color Blue - 45 cm Body Position Supine Therapeutic Exercises Supine Exercises 1 Supine Exercise Name Manual piriformis stretch Side left Other Exercises 2 Other Exercise Name Resisted Forward/Backward Side bilateral Resistance Green Equipment Used T-band 1 Other Exercise Name Resisted Side-stepping Side bilateral Resistance Green Equipment Used T-band Manual Therapy Treatment Soft Tissue Mobilization 2 Body Location Quadratus Lumborum Mobilization Type Sustained Pressure Trigger Point Release Intensity/Depth Moderate Body Position Sidelying 1 Body Location Piriformis Mobilization Type Strumming Sustained Pressure Trigger Point Release Intensity/Depth Moderate Body Position Prone PT-OP-T Assessment and Plan Start: 02/16/18 14:38 Freq: Status: Active Protocol: Document 03/04/18 09:45 DCW (Rec: 03/04/18 10:31 DCW [id number]) Physical Therapy Assessment Goals Three Impairment Piriformis Tone Short Term Goal (STG) Piriformis tone to mild with palpation STG Duration Met Quail Farmer Goal (LTG) Pt to report no incidence of radicular pain over two weeks LTG Duration Met Two Impairment Strength Short Term Goal (STG) Left hip IR to 4+/5 STG Duration Met Quail Farmer Goal (LTG) Left hip IR to 5/5 LTG Duration 03/23/18 One Impairment Activity tolerance Short Term Goal (STG) Pt to report no increased pain while sitting in her recliner reading for 1 hour STG Duration Met Progress Towards Goals Progress Towards Goals Goals Met Assessment Summary Assessment Pt has no complaints of pain or difficulty, no impairments currently to work on in therapy. Pt will be discharged at this time. Physical Therapy Plan Frequency and Duration Frequency of Treatment 2x/Week Duration of Treatment 6 weeks Plan of Care Start Date 02/16/18 Plan of Care End Date 03/30/18 Therapeutic Interventions Therapeutic Interventions Aquatic Therapy Home Exercise Program Joint Mobilizations Manual Therapy Neuromuscular Re-education Soft Tissue Mobilization Therapeutic Exercises Modalities Cold Pack/Ice Massage Electric Stimulation Hot Packs Ultrasound Discharge Physical Therapy Discharge Reasons Goals Met
== END 2018-03-11 11:23 ==
LOC: PHYS 09:45
PROVIDERS: Family Provider Family Medicine; PCP Family Medicine; Visit Provider Family Medicine
DX: M54.16 Radiculopathy, lumbar region (principal)
CPT/HCPCS: 97010; 97110; 97140; 97161

== ENCOUNTER → 2018-05-05 07:02 | Outpatient (CLI) | payer MEDICARE, SELFPAY ==
[2018-05-05 09:22] LABS: Alanine Aminotransferase 45 IU/L (9-52); Albumin 4.5 g/dL (3.5-5.0); Albumin Globulin Ratio 1.6 (1.0-2.8); Alkaline Phosphatase 120 U/L (38-126); Aspartate Aminotransferase 41 IU/L (14-36); BUN Creatinine Ratio 28.6 (6-22); Bilirubin Total 0.7 mg/dL (0.2-1.3); Blood Urea Nitrogen 20 mg/dL (7-17); Calcium 9.6 mg/dL (8.4-10.2); Carbon Dioxide 34 mmol/L (22-32); Chloride 102 mmol/L (98-107); Cholesterol 193 mg/dL (140-199); Estimated Glomerular Filt Rate > 60.0 mL/min (>60); Globulin 2.8 g/dL (1.7-4.1); Glucose 90 mg/dL (80-110); HDL Cholesterol 109 mg/dL (40-60); HEMOLYSIS < 15 (0-50); LDL Cholesterol Calculated 71 mg/dL (<100); Potassium 3.9 mmol/L (3.4-5.1); Sodium 143 mmol/L (137-145); Total Protein 7.3 g/dL (6.3-8.2); Triglycerides 64 mg/dL (35-150)
[2018-05-05 09:54] LABS: Free T4, Direct Thyroxine 1.29 ng/dL (0.78-2.19)
[2018-05-05 15:36] LABS: Thyroid Stimulating Hormone 0.93 uIU/mL (0.47-4.68)
== END ==
PROVIDERS: PCP Family Medicine; Visit Provider Family Medicine
DX: E03.9 Hypothyroidism, unspecified (principal); E78.5 Hyperlipidemia, unspecified
CPT/HCPCS: 36415; 80053; 80061; 84439; 84443

== ENCOUNTER 2018-07-10 10:57 | Emergency (ER) | payer MEDICARE, SELFPAY ==
[2018-07-10 11:07] VITALS: BP 155/67; PULSE 95; RESP 18; TEMP 36.4; O2SAT 98
--- NOTE | 2018-07-10 11:17 | DI.RAD.S_ITS ---
PROCEDURE: XR SHOULDER LT MIN 2V INDICATIONS: fall pain TECHNIQUE: 2 views of the left shoulder were acquired. COMPARISON: [facility], , SHOULDER MINIMUM 2 VIEW LEFT, 09/15/2013, 10:41. FINDINGS: No fractures or dislocations. There is a small 0.9 cm chronic-appearing calcified joint body projecting inferior to the left glenohumeral joint. Visualized ribs appear intact. IMPRESSION: No acute fracture or dislocation of the left shoulder. Dictated by: Carlos Cleaning M.D. on 07/10/2018 at 12:25 Approved by: Carlos Cleaning M.D. on 07/10/2018 at 12:28
--- NOTE | 2018-07-10 11:17 | DI.CT.S_ITS ---
PROCEDURE: CT HEAD/BRAIN WO CON INDICATIONS: Fall, left eye laceration. TECHNIQUE: Noncontrast 4.5 mm thick angled axial sections acquired from the foramen magnum to the vertex, with coronal and sagittal reformats. For radiation dose reduction, the following was used: automated exposure control, adjustment of mA and/or kV according to patient size. COMPARISON: [facility], CT, HEAD WITHOUT CONTRAST, 08/20/2016, 8:32. [facility], CT, HEAD WITHOUT CONTRAST, 10/20/2007, 8:38. FINDINGS: Image quality: Excellent. CSF spaces: Basal cisterns are patent. No extra-axial fluid collections. Ventricles are normal in size and shape. Brain: No midline shift. No intracranial masses or hemorrhage. Mauricio-white matter interface is normal. There is moderate diffuse cerebral volume loss. There is calcified plaque of the intracranial vasculature. There is moderate periventricular and subcortical white matter hypoattenuation, which is nonspecific but can be seen with chronic microvascular ischemic changes. 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 Skull and face: Calvarium and visualized facial bones are intact, without suspicious lesions. There is mild left periorbital soft tissue swelling. The left optic globe appears intact and there is no radiopaque debris within the left orbit. Right orbit and optic globe appear unremarkable. Sinuses: Visualized sinuses and mastoids are clear. IMPRESSION: #1. No acute intracranial abnormality. #2. Mild left periorbital soft tissue swelling. Dictated by: Carlos Cleaning M.D. on 07/10/2018 at 12:14 Approved by: Carlos Cleaning M.D. on 07/10/2018 at 12:25
--- NOTE | 2018-07-10 11:30 | ED.FALL ---
HPI - Fall General Chief Complaint: Fall Stated Complaint: shoulder stiffness,facial scratches from falling Time Seen by Provider: 07/10/18 11:11 Source: patient Mode of arrival: ambulatory Limitations: no limitations History of Present Illness HPI Narrative: Patient is a 82-year-old female who presents after a ground level fall. [facility] landed on her left shoulder and head. She has a small laceration above her left eyebrow. She does take aspirin daily for a PFO. No loss of consciousness no nausea or vomiting. She complains only of left shoulder pain. No neck pain no numbness or tingling. MD complaint: fall Related Data Home Medications Medication Instructions Recorded Confirmed aspirin 325 mg PO QDAY #0 10/20/07 Ferrous Sulfate (Feosol) 325 mg PO Q DAY #0 04/11/08 MULTIVITAMIN (Multivitamin 1 cap PO EVERY DAY #0 04/11/08 -) [FLAXSEED OIL] 1 cap PO QDAY #0 04/11/08 calcium carbonate-vitamin D3 1 tab PO BID #0 04/11/08 [Oyster Shell Calcium-Vit D3] simvastatin [Zocor] 30 mg PO HS #0 04/11/08 atorvastatin [Lipitor] 20 mg PO QDAY #0 08/20/16 lutein-zeaxanthin 1 ea PO #0 08/20/16 levothyroxine [Levoxyl] 112 mcg PO QDAY #0 01/09/17 Previous Rx's Medication Instructions Recorded amoxicillin-pot clavulanate 875 mg PO BID #14 tab 01/09/17 [Augmentin] Allergies Allergy/AdvReac Type Severity Reaction Status Date / Time formaldehyde [FORMALDEHYDE] Allergy Unknown Unverified 11/04/17 11:50 iodine [IODINE] Allergy Unknown Unverified 11/04/17 11:50 Review of Systems Review of Systems All systems reviewed & are unremarkable except as noted in HPI and below Constitutional Denies chills, Denies fever(s), Denies lethargy and Denies weakness Eyes Denies change in vision, Denies eye discharge, Denies irritation and Denies loss of vision Cardiovascular Denies chest pain, Denies irregular heart rhythm, Denies lightheadedness, Denies palpitations, Denies dyspnea, Denies dyspnea on exertion and Denies orthopnea Respiratory Denies cough, Denies dyspnea, Denies dyspnea on exertion and Denies wheezing Gastrointestinal Gastrointestinal: Denies abdominal pain, Denies change in bowel habits, Denies diarrhea, Denies nausea and Denies vomiting Musculoskeletal Reports as per HPI, Denies back pain, Denies muscle weakness, Denies numbness and Denies tingling Comments: Left shoulder pain Integumentary/Breasts Reports as per HPI, Denies pruritus, Denies erythema, Denies rash and Denies wounds Comments: Laceration Neurologic Denies loss of vision, Denies numbness, Denies tingling and Denies weakness Endocrine Denies palpitations Allergic/Immunologic Denies wheezing Exam Initial Vital Signs Initial Vital Signs: Vital Signs Temperature 97.6 F 07/10/18 11:07 Pulse Rate 95 H 07/10/18 11:07 Respiratory Rate 18 07/10/18 11:07 Blood Pressure 155/67 H 07/10/18 11:07 Pulse Oximetry 98 07/10/18 11:07 GENERAL: Alert well-appearing elderly female HEENT: Head laceration left eyebrow, no crepitations no depressions, no other head injury. EOMI, JH, no cervical tenderness no step-offs no CARDIOVASCULAR: Regular rate and rhythm without murmurs, rubs or gallops. RESPIRATORY: Breath sounds equal bilaterally, no wheezes rales or rhonchi. ABDOMEN: Soft, nontender. Normoactive bowel sounds all 4 quadrants. No guarding or rebound. EXTREMITIES: Normal range of motion, no clubbing or edema. Neurovascularly intact. Tenderness left shoulder contusion noted all approximately. She is able to move it. Clavicle intact. Moving all fingers and elbow. Radial median and ulnar nerves intact sensation result it intact NEUROLOGICAL: Alert and oriented x4.Normal gait and speech. Cranial nerves II through XII grossly intact. Good [id number], good [id number], strength equal bilaterally, no dysarthria or aphasia, sensation in tact to soft touch bilaterally, no visual changes, no facial droop SKIN: Warm, dry, no laceration, no petechiae, no rashes or lesions. Bilateral knee abrasions on the knee. [facility] Medical History Patent foramen ovale (Acute) Procedures Laceration Repair Laceration 1: Site: face Side (If applicable): left Size (cm): 3.5 Description: linear Depth: simple, single layer Local Anesthetic: lidocaine 1% and with bicarb Amount of anesthesia used (mL): 3 Pre-repair: wound explored, irrigated extensively and deep structures intact Skin layer closed with: nylon Size (cm): 5-0 Number of sutures: 4 Technique: simple, interrupted Course Orders Ordered: ED Orders 07/10/18 11:17 CT head/brain wo con Stat XR shoulder LT min 2V Stat Vital Signs - 8 hr 07/10/18 11:07 07/10/18 12:38 07/10/18 12:40 Temperature 97.6 F Pulse Rate 95 H Respiratory Rate 18 Blood Pressure 155/67 H 105/68 Blood Pressure [Left Arm] 105/68 Pulse Oximetry 98 MDM - Fall Imaging Data left shoulder XR: Radiologist's impression: PROCEDURE: XR SHOULDER LT MIN 2V INDICATIONS: fall pain TECHNIQUE: 2 views of the left shoulder were acquired. COMPARISON: [facility], SHOULDER MINIMUM 2 VIEW LEFT, 09/15/2013, 10:41. FINDINGS: No fractures or dislocations. There is a small 0.9 cm chronic-appearing calcified joint body projecting inferior to the left glenohumeral joint. Visualized ribs appear intact. IMPRESSION: No acute fracture or dislocation of the left shoulder. Dictated by: Carlos Cleaning M.D. on 07/10/2018 at 12:25 CT scan - head: Radiologist's impression: PROCEDURE: XR SHOULDER LT MIN 2V INDICATIONS: fall pain TECHNIQUE: 2 views of the left shoulder were acquired. COMPARISON: [facility], SHOULDER MINIMUM 2 VIEW LEFT, 09/15/2013, 10:41. FINDINGS: No fractures or dislocations. There is a small 0.9 cm chronic-appearing calcified joint body projecting inferior to the left glenohumeral joint. Visualized ribs appear intact. IMPRESSION: No acute fracture or dislocation of the left shoulder. Dictated by: Carlos Cleaning M.D. on 07/10/2018 at 12:25 [facility] Narrative Medical decision making narrative: Patient overall sound a little bit better. Laceration repaired. Head CT is negative she is ambulatory in the ED Discharge Plan Departure Patient Disposition: Home Clinical Impression: Laceration of head Discharge Date/Time: 07/10/18 12:41 Interventions: ED Discharge Assessment Last Done: 07/10/18 12:40 Instructions: DI for Laceration Repair -- Simple Activity Restrictions/Additional Instructions: *You have been diagnosed with laceration, left shoulder contusion *What to do: Have sutures removed in 5-7 days, may place bacitracin ointment on it is 1-2 times daily, keep clean with soap and water, no soaking in water but bathing is okay Increased movement of the shoulder, tried to move it a little bit each hour *Continue to take medications as directed Tylenol 650 mg every 4-6 hours if needed for pain *Follow up with your primary care provider in 2-3 days *Return to ER if you should have redness, pus, swelling or any new, worsening or concerning symptoms Prescriptions: No Action aspirin 325 MG tablet 325 mg PO QDAY Qty: 0 RF: 0 simvastatin [Zocor] 20 MG tablet 30 mg PO HS Qty: 0 RF: 0 MULTIVITAMIN (Multivitamin -) 1 cap PO EVERY DAY Qty: 0 RF: 0 [FLAXSEED OIL] 1 cap PO QDAY Qty: 0 RF: 0 calcium carbonate-vitamin D3 [Oyster Shell Calcium-Vit D3] 1,250 MG/200 IU tablet 1 tab PO BID Qty: 0 RF: 0 Ferrous Sulfate (Feosol) 325 mg PO Q DAY Qty: 0 RF: 0 atorvastatin [Lipitor] 20 MG tablet 20 mg PO QDAY Qty: 0 RF: 0 lutein-zeaxanthin 1 EACH capsule 1 ea PO Qty: 0 RF: 0 levothyroxine [Levoxyl] 112 MCG tablet 112 mcg PO QDAY Qty: 0 RF: 0 amoxicillin-pot clavulanate [Augmentin] 875 MG/125 MG tablet 875 mg PO BID Qty: 14 RF: 0 Referrals: Viky Seymour MD [Primary Care Provider] -
--- NOTE | 2018-07-10 11:34 | ED_ITS ---
HPI - Fall General Chief Complaint: Fall Stated Complaint: shoulder stiffness,facial scratches from falling Time Seen by Provider: 07/10/18 11:11 Source: patient Mode of arrival: ambulatory Limitations: no limitations History of Present Illness HPI Narrative: Patient is a 82-year-old female who presents after a ground level fall. [facility] her left shoulder and head. She has a small laceration above her left eyebrow. She does take aspirin daily for a PFO. No loss of consciousness no nausea or vomiting. She complains only of left shoulder pain. No neck pain no numbness or tingling. MD complaint: fall Related Data Home Medications Medication Instructions Recorded Confirmed aspirin 325 mg PO QDAY #0 10/20/07 Ferrous Sulfate (Feosol) 325 mg PO Q DAY #0 04/11/08 MULTIVITAMIN (Multivitamin 1 cap PO EVERY DAY #0 04/11/08 -) [FLAXSEED OIL] 1 cap PO QDAY #0 04/11/08 calcium carbonate-vitamin D3 1 tab PO BID #0 04/11/08 [Oyster Shell Calcium-Vit D3] simvastatin [Zocor] 30 mg PO HS #0 04/11/08 atorvastatin [Lipitor] 20 mg PO QDAY #0 08/20/16 lutein-zeaxanthin 1 ea PO #0 08/20/16 levothyroxine [Levoxyl] 112 mcg PO QDAY #0 01/09/17 Previous Rx's Medication Instructions Recorded amoxicillin-pot clavulanate 875 mg PO BID #14 tab 01/09/17 [Augmentin] Allergies Allergy/AdvReac Type Severity Reaction Status Date / Time formaldehyde [FORMALDEHYDE] Allergy Unknown Unverified 11/04/17 11:50 iodine [IODINE] Allergy Unknown Unverified 11/04/17 11:50 Review of Systems Review of Systems All systems reviewed & are unremarkable except as noted in HPI and below Constitutional Denies chills, Denies fever(s), Denies lethargy and Denies weakness Eyes Denies change in vision, Denies eye discharge, Denies irritation and Denies loss of vision Cardiovascular Denies chest pain, Denies irregular heart rhythm, Denies lightheadedness, Denies palpitations, Denies dyspnea, Denies dyspnea on exertion and Denies orthopnea Respiratory Denies cough, Denies dyspnea, Denies dyspnea on exertion and Denies wheezing Gastrointestinal Gastrointestinal: Denies abdominal pain, Denies change in bowel habits, Denies diarrhea, Denies nausea and Denies vomiting Musculoskeletal Reports as per HPI, Denies back pain, Denies muscle weakness, Denies numbness and Denies tingling Comments: Left shoulder pain Integumentary/Breasts Reports as per HPI, Denies pruritus, Denies erythema, Denies rash and Denies wounds Comments: Laceration Neurologic Denies loss of vision, Denies numbness, Denies tingling and Denies weakness Endocrine Denies palpitations Allergic/Immunologic Denies wheezing Exam Initial Vital Signs Initial Vital Signs: Vital Signs Temperature 97.6 F 07/10/18 11:07 Pulse Rate 95 H 07/10/18 11:07 Respiratory Rate 18 07/10/18 11:07 Blood Pressure 155/67 H 07/10/18 11:07 Pulse Oximetry 98 07/10/18 11:07 GENERAL: Alert well-appearing elderly female HEENT: Head laceration left eyebrow, no crepitations no depressions, no other head injury. EOMI, JH, no cervical tenderness no step-offs no CARDIOVASCULAR: Regular rate and rhythm without murmurs, rubs or gallops. RESPIRATORY: Breath sounds equal bilaterally, no wheezes rales or rhonchi. ABDOMEN: Soft, nontender. Normoactive bowel sounds all 4 quadrants. No guarding or rebound. EXTREMITIES: Normal range of motion, no clubbing or edema. Neurovascularly intact. Tenderness left shoulder contusion noted all approximately. She is able to move it. Clavicle intact. Moving all fingers and elbow. Radial median and ulnar nerves intact sensation result it intact NEUROLOGICAL: Alert and oriented x4.Normal gait and speech. Cranial nerves II through XII grossly intact. Good [id number], good [id number]-[id number], strength equal bilaterally, no dysarthria or aphasia, sensation in tact to soft touch bilaterally, no visual changes, no facial droop SKIN: Warm, dry, no laceration, no petechiae, no rashes or lesions. Bilateral knee abrasions on the knee. [facility] Medical History Patent foramen ovale (Acute) Procedures Laceration Repair Laceration 1: Site: face Side (If applicable): left Size (cm): 3.5 Description: linear Depth: simple, single layer Local Anesthetic: lidocaine 1% and with bicarb Amount of anesthesia used (mL): 3 Pre-repair: wound explored, irrigated extensively and deep structures intact Skin layer closed with: nylon Size (cm): 5-0 Number of sutures: 4 Technique: simple, interrupted Course Orders Ordered: ED Orders 07/10/18 11:17 CT head/brain wo con Stat XR shoulder LT min 2V Stat Vital Signs - 8 hr 07/10/18 11:07 07/10/18 12:38 07/10/18 12:40 Temperature 97.6 F Pulse Rate 95 H Respiratory Rate 18 Blood Pressure 155/67 H 105/68 Blood Pressure [Left Arm] 105/68 Pulse Oximetry 98 MDM - Fall Imaging Data left shoulder XR: Radiologist's impression: PROCEDURE: XR SHOULDER LT MIN 2V INDICATIONS: fall pain TECHNIQUE: 2 views of the left shoulder were acquired. COMPARISON: [facility], SHOULDER MINIMUM 2 VIEW LEFT, 09/15/2013, 10: 41. FINDINGS: No fractures or dislocations. There is a small 0.9 cm chronic-appearing calcified joint body projecting inferior to the left glenohumeral joint. Visualized ribs appear intact. IMPRESSION: No acute fracture or dislocation of the left shoulder. Dictated by: Carlos Cleaning M.D. on 07/10/2018 at 12:25 CT scan - head: Radiologist's impression: PROCEDURE: XR SHOULDER LT MIN 2V INDICATIONS: fall pain TECHNIQUE: 2 views of the left shoulder were acquired. COMPARISON: [facility], SHOULDER MINIMUM 2 VIEW LEFT, 09/15/2013, 10: 41. FINDINGS: No fractures or dislocations. There is a small 0.9 cm chronic-appearing calcified joint body projecting inferior to the left glenohumeral joint. Visualized ribs appear intact. IMPRESSION: No acute fracture or dislocation of the left shoulder. Dictated by: Carlos Cleaning M.D. on 07/10/2018 at 12:25 [facility] Narrative Medical decision making narrative: Patient overall sound a little bit better. Laceration repaired. Head CT is negative she is ambulatory in the ED Discharge Plan Departure Patient Disposition: Home Clinical Impression: Laceration of head Discharge Date/Time: 07/10/18 12:41 Interventions: ED Discharge Assessment Last Done: 07/10/18 12:40 Instructions: DI for Laceration Repair -- Simple Activity Restrictions/Additional Instructions: *You have been diagnosed with laceration, left shoulder contusion *What to do: Have sutures removed in 5-7 days, may place bacitracin ointment on it is 1-2 times daily, keep clean with soap and water, no soaking in water but bathing is okay Increased movement of the shoulder, tried to move it a little bit each hour *Continue to take medications as directed Tylenol 650 mg every 4-6 hours if needed for pain *Follow up with your primary care provider in 2-3 days *Return to ER if you should have redness, pus, swelling or any new, worsening or concerning symptoms Prescriptions: No Action aspirin 325 MG tablet 325 mg PO QDAY Qty: 0 RF: 0 simvastatin [Zocor] 20 MG tablet 30 mg PO HS Qty: 0 RF: 0 MULTIVITAMIN (Multivitamin -) 1 cap PO EVERY DAY Qty: 0 RF: 0 [FLAXSEED OIL] 1 cap PO QDAY Qty: 0 RF: 0 calcium carbonate-vitamin D3 [Oyster Shell Calcium-Vit D3] 1,250 MG/200 IU tablet 1 tab PO BID Qty: 0 RF: 0 Ferrous Sulfate (Feosol) 325 mg PO Q DAY Qty: 0 RF: 0 atorvastatin [Lipitor] 20 MG tablet 20 mg PO QDAY Qty: 0 RF: 0 lutein-zeaxanthin 1 EACH capsule 1 ea PO Qty: 0 RF: 0 levothyroxine [Levoxyl] 112 MCG tablet 112 mcg PO QDAY Qty: 0 RF: 0 amoxicillin-pot clavulanate [Augmentin] 875 MG/125 MG tablet 875 mg PO BID Qty: 14 RF: 0 Referrals: Viky Seymour MD [Primary Care Provider] -
--- NOTE | 2018-07-10 12:37 | PC.NURSE ---
sutrues x 4 placed by md on l brow/ abrasions l facial cheek. bleeding controlled. pt alert nad
[2018-07-10 12:38] VITALS: BP 105/68
--- NOTE | 2018-07-10 12:39 | PC.NURSE ---
dressing placed/ l brow
[2018-07-10 12:40] VITALS: BP 105/68
== END 2018-07-10 12:41 | disposition home or self-care (01) ==
PROVIDERS: Emergency Provider Emergency Medicine; Family Provider Family Medicine; PCP Family Medicine
DX: S01.81XA Laceration without foreign body of other part of head, initial encounter (principal); W01.0XXA Fall on same level from slipping, tripping and stumbling without subsequent striking against object, initial encounter
CPT/HCPCS: 12013; 70450; 73030; 99282; 99284

== ENCOUNTER → 2018-09-13 06:56 | Outpatient (CLI) | payer MEDICARE, SELFPAY ==
[2018-09-13 08:54] LABS: Add Manual Diff / Slide Review NO; Basophils Absolute Auto 0 /uL (0-100); Basophils Percent Auto 0.8 % (0-2); Eosinophils Absolute Auto 100 /uL (0-450); Eosinophils Percent Auto 2.9 % (2-4); Hematocrit 40.6 % (36-46); Hemoglobin 13.6 g/dL (12.0-16.0); Lymphocytes Absolute Auto 1400 /uL (1100-4500); Lymphocytes Percent Auto 28.5 % (25-40); Mean Corpuscular HGB Conc 33.5 % (30-36); Mean Corpuscular Hemoglobin 32.3 PG (26-34); Mean Corpuscular Volume 96.4 fL (80-100); Monocytes Absolute Auto 600 /uL (0-900); Monocytes Percent Auto 12.6 % (3-14); Neutrophils Absolute Auto 2800 /uL (1500-7000); Neutrophils Percent Auto 55.2 % (50-75); Platelet Count 243 X10^3/uL (150-400); Red Blood Cell Count 4.21 X10^6/uL (4.0-5.2); Red Cell Distribution Width 13.1 % (11.6-14.8)
[2018-09-13 09:08] LABS: Alanine Aminotransferase 41 IU/L (9-52); Albumin 4.5 g/dL (3.5-5.0); Albumin Globulin Ratio 1.5 (1.0-2.8); Alkaline Phosphatase 121 U/L (38-126); Aspartate Aminotransferase 37 IU/L (14-36); BUN Creatinine Ratio 31.4 (6-22); Bilirubin Total 0.6 mg/dL (0.2-1.3); Blood Urea Nitrogen 22 mg/dL (7-17); Carbon Dioxide 30 mmol/L (22-32); Chloride 100 mmol/L (98-107); Cholesterol 186 mg/dL (140-199); Estimated Glomerular Filt Rate > 60.0 mL/min (>60); Glucose 97 mg/dL (80-110); HDL Cholesterol 97 mg/dL (40-60); HEMOLYSIS < 15 (0-50); LDL Cholesterol Calculated 69 mg/dL (<100); Potassium 3.9 mmol/L (3.4-5.1); Sodium 139 mmol/L (137-145); Total Protein 7.5 g/dL (6.3-8.2); Triglycerides 102 mg/dL (35-150)
[2018-09-13 09:26] LABS: Free T4, Direct Thyroxine 1.28 ng/dL (0.78-2.19)
[2018-09-13 09:40] LABS: Thyroid Stimulating Hormone 2.57 uIU/mL (0.47-4.68)
== END ==
PROVIDERS: PCP Family Medicine; Visit Provider Family Medicine
DX: E03.9 Hypothyroidism, unspecified (principal); E78.5 Hyperlipidemia, unspecified
CPT/HCPCS: 36415; 80053; 80061; 84439; 84443; 85025

== ENCOUNTER 2018-11-09 08:15 | Outpatient (RCR) | payer MEDICARE, SELFPAY ==
--- NOTE | 2018-07-22 13:05 | PT.OPPOC ---
Current Diagnoses Pain in left shoulder (08/12/18) Provider Visit Care Team Role Provider Type Viky Seymour MD Attending Provider Physician Family Provider Primary Care Provider Specialty: Family Practice Address: [address] [place] [address], [id number] Email: Plan Of Care PT-OP-T Assessment and Plan Start: 07/22/18 13:01 Freq: Status: Active Protocol: Physical Therapy Assessment Rehab Potential Rehabilitation Potential Good Evaluation Complexity Number of Personal Factors/Comorbidities 1-2 Number of Body Systems Impaired 1-2 Clinical Presentation at Evaluation Stable Impairments Impairments Activity Tolerance Functional Activities Functional Mobility Pain Posture ROM Soft Tissue Mobility Strength Goals 4 Impairment strength Short Term Goal (STG) increase overall L GH strength by 1/2 MMT for returning PLOF such as holding a pot during cooking STG Duration 4 weeks Skilled Nursing Goal (LTG) increase overall L GH strength by 1 MMT for returning PLOF such as holding a pot during cooking LTG Duration 8 weeks Three Impairment participation Short Term Goal (STG) able to participate her gym class 1x / week for overall strengthening. STG Duration 4 weeks Skilled Nursing Goal (LTG) able to participate her gym class 2x / week for overall strengthening. LTG Duration 8 weeks Two Impairment ROM Short Term Goal (STG) increase overall L GH ROM by 15 degrees for OH functional activities such as using her hair spinner and donning her clothes STG Duration 4 weeks Medical Case Manager Goal (LTG) increase overall L GH ROM by 30 degrees for OH functional activities such as using her hair spinner and donning her clothes LTG Duration 8 weeks One Impairment pain Short Term Goal (STG) Reduce L shoulder pain by 2points during shoulder flexion, abduction and ER STG Duration 4 weeks Skilled Nursing Goal (LTG) Reduce L shoulder pain by 4 points during shoulder flexion , abduction and ER LTG Duration 8 weeks Assessment Summary Assessment Pt c/o new onset of L shoulder pain 7/10 s/p fall on . Pt states her symptoms has been getting better over the past 3 weeks but still lack of full ROM and overall shoulder strength. Upon assessment, pt presents symptoms of L RTC strain due to her mechanism of injury (abrupt scapular protraction and elevation). Pt presents decreased overall L GH ROM (flexion> abduction > ER), along with painful arc and pain during ER at end range. Patient reports pain decreased with PROM and AROM with gravity eliminated position (supine/ sidelying). She also demonstrates compensatory movement pattern with excessive activation of L UT and LS during oberhead movements. She also presents decreased overall L GH stability and scapular mobility (upward rotation and downward rotation). However, pt anel tx well today with immediate increase in GH ROM with reduced pain after STM and mobilization with assisted scap upward rotation and downward rotation. Pt will benefit from skilled PT to address her aforementioned multiple impairments to return PLOF in pain free. HEP includes supine cane flexion, abduction and ER; scapular roll in sitting. Physical Therapy Plan Frequency and Duration Frequency of Treatment 2x/Week Duration of Treatment 8 weeks Plan of Care Start Date 07/22/18 Plan of Care End Date 09/15/18 Therapeutic Interventions Therapeutic Interventions Home Exercise Program Joint Mobilizations Manual Therapy Neuromuscular Re-education Soft Tissue Mobilization Taping Therapeutic Activities Therapeutic Exercises Modalities Cold Pack/Ice Massage Electric Stimulation Next Visit Focus/Plan Next Note Type Treatment Note Next Visit Plan KT tape if needed progress AAROM/ PROM as tolerated (gravity eliminated / against gravity) OH becki as well. scap mob (upward rotation and downward rotation) with shoulder movements UT and LS relaxation Plan of Care Dates Plan of Care Start Date 07/22/18 Plan of Care End Date 09/15/18 Please Sign and Return: I have reviewed this Plan of Care and certify that the skilled therapy services above are required to meet the patient?s needs. Physician Signature Date Printed Name and Credentials Clinical Instructor Signature Printed Name and Credentials
--- NOTE | 2018-07-22 15:36 | PT.OIE ---
Addendum entered and electronically signed by David Cosby PT 07/28/18 09:22: missed entry for POC frequency and duration Original Note: Current Diagnoses Pain in left shoulder (07/22/18) Past Medical History (Last Updated 07/10/18 @ 11:33 by Briana Cramer DO) Patent foramen ovale (Acute) Provider Visit Care Team Role Provider Type Viky Seymour MD Attending Provider Physician Family Provider Primary Care Provider Specialty: Family Practice Address: [address] [place] [address], [facility] Email: Physical Therapy Initial Evaluation PT-OP-A Visit Information Start: 07/22/18 13:01 Freq: Status: Active Protocol: Document 07/22/18 12:00 HH (Rec: 07/22/18 13:49 [email or web address]) Out-Patient Physical Therapy Visit Information Visit Information Visit Type Initial Evaluation Visit Note L shoulder pain post fall Visit Start Time 12:00 Visit Stop Time 12:50 Total Visit Minutes 50 Visit Number 1 Number of CLEAT FEEDER Visits 0 Evaluation Information Evaluation Date 07/22/18 PT-OP-B Current Condition Start: 07/22/18 13:01 Freq: Status: Active Protocol: Document 07/22/18 12:00 HH (Rec: 07/22/18 13:49 [email or web address]) Current Condition History of Current Condition Onset Date 07/22/18 Current Complaints L shoulder pain post fall History of Current Condition Pt is a 82yo pleasant female who presents to clinic with L shoulder pain since 07/10/18 after a fall. Pt fell on the street during negotiating a curb who landed on her L side of the face and L shoulder. Pt was admitted to the ER at with negative findings on X- ray for L shoulder fx. Pt c/o L shoulder pain 02/02 since then. Pain gets worse during mobility and functional activities such as OH movements from using a hairspring truing inspector, donning her clothers, lifting boxes and cooking. Pt does report her symptoms and pain has been getting better over the past 3 weeks and starts to regain part of ROM but not so much for the strength. Pt currently cannot participate her gym class at [facility] due to her shoulder pain. Prior Treatments and Tests Pt received PT for her stroke 10 years ago Treatment Goals Patient/Caregiver Goals expects to reach PLOF in pain free such as using hairspring truing inspector, cooking, doning her clothes and lifting boxes; to participate her gym class at [employer] 3x/week; return to walking 3miles /day Prior Functional Status Baseline Function- ADL's Independent Baseline Function- Mobility Independent Current Functional Impairments (Reported) Functional Limitations- ADL's Pain during OH movements and lifting who requires her 's help when needed Functional Limitations- Mobility/Gait Pain during OH movements and lifting who requires her 's help when needed PT-OP-C Subjective Start: 07/22/18 13:01 Freq: Status: Active Protocol: Document 07/22/18 12:00 (Rec: 07/22/18 13:49 [email or web address]) OP-PT Subjective Patient Comments Patient Comments c/o L shoulder pain since Patient Reported Progress Improving Patient Questionnaires Quick Dash- Upper Extremity Quick Dash UE Score 43.18 Quick Dash UE Impairment 40 to 59% Impaired (Score 40- 59) OP-PT Pain Assessment Location Left Shoulder Intensity 7 Scale Used Numeric (1 - 10) Description Aching Dull Frequency Frequent Pain Aggravating Factors ADL's Activity Exercise Lifting Pain Alleviating Factors Inactivity Massage PT-OP-F Manual Assessment Start: 07/22/18 13:01 Freq: Status: Active Protocol: Document 07/22/18 12:00 (Rec: 07/22/18 13:49 [email or web address]) Manual Assessments Soft Tissue Assessment Soft Tissue Mobility Assessment significant tenderness at L UE and Pec major and minor Joint Mobility Assessment Joint Mobility Assessment hypomobile at L scapula upward and downward rotation PT-OP-K Range of Motion Start: 07/22/18 13:01 Freq: Status: Active Protocol: Document 07/22/18 12:00 HH (Rec: 07/22/18 13:49 [email or web address]) Shoulder Goniometric Range of Motion Shoulder Measured in Degrees Right Active Shoulder ROM WFL Yes Testing Position Sitting Flexion 170 Extension 50 Abduction 170 External Rotation at 90 degrees 80 Abduction Internal Rotation 80 Left Active Shoulder ROM WFL No Testing Position Sitting Flexion 160 Extension 30 Abduction 145 External Rotation at 90 degrees 50 Abduction Internal Rotation 80 PT-OP-L Special Tests Start: 07/22/18 13:01 Freq: Status: Active Protocol: Document 07/22/18 12:00 HH (Rec: 07/22/18 13:49 [email or web address]) Special Tests Shoulder Special Tests painful arc Test Results +ve Comments most painful at 90 abduction Elevation Impingement Test Results +ve Comments most painful at 90 abduction concentrically and eccentrically Drop Arm Rotator Cuff Test Results -ve Passive ER Rotator Cuff Test Results +ve Comments pain reproduced at ER 50 degrees PT-OP-M Strength Start: 07/22/18 13:01 Freq: Status: Active Protocol: Document 07/22/18 12:00 (Rec: 07/22/18 13:49 [email or web address]) Shoulder Strength Shoulder Manual Muscle Testing Right Flexion 4+ Good+ Extension 4+ Good+ Abduction (C5) 4+ Good+ External Rotation 4+ Good+ Internal Rotation 4+ Good+ Left Flexion 3+ Fair+ Extension 4- Good- Abduction (C5) 3+ Fair+ External Rotation 3 Fair Internal Rotation 4- Good- PT-OP-Q Treatments Start: 07/22/18 13:01 Freq: Status: Active Protocol: Document 07/22/18 12:00 (Rec: 07/22/18 13:49 [email or web address]) Therapeutic Exercises Supine Exercises supine L GH flexion Side left Reps/Minutes 2 mins wand PROM and AAROM Supine Exercise Name cane Side left Equipment Used cane Reps/Minutes 10 mins Sitting Exercises scapular roll Sitting Exercise Name retraction, protraction Side bilateral Reps/Minutes 5 mins Manual Therapy Treatment Soft Tissue Mobilization UT and pec Mobilization Type Cross-Friction Myofascial Release Intensity/Depth Moderate Body Position Supine Joint Mobilizations scap UR and DR Joint L scap upward and downward rotation with GH movements Grade III Body Position Sidelying Comments with assisted L GH flexion and abduction PT-OP-T Assessment and Plan Start: 07/22/18 13:01 Freq: Status: Active Protocol: Document 07/22/18 12:00 (Rec: 07/22/18 13:49 [email or web address]) Physical Therapy Assessment Rehab Potential Rehabilitation Potential Good Evaluation Complexity Number of Personal Factors/Comorbidities 1-2 Number of Body Systems Impaired 1-2 Clinical Presentation at Evaluation Stable Impairments Impairments Activity Tolerance Functional Activities Functional Mobility Pain Posture ROM Soft Tissue Mobility Strength Goals 4 Impairment strength Short Term Goal (STG) increase overall L GH strength by 1/2 MMT for returning PLOF such as holding a pot during cooking STG Duration 4 weeks C.O.D. Audit Clerk Goal (LTG) increase overall L GH strength by 1 MMT for returning PLOF such as holding a pot during cooking LTG Duration 8 weeks Three Impairment participation Short Term Goal (STG) able to participate her gym class 1x / week for overall strengthening. STG Duration 4 weeks C.O.D. Audit Clerk Goal (LTG) able to participate her gym class 2x / week for overall strengthening. LTG Duration 8 weeks Two Impairment ROM Short Term Goal (STG) increase overall L GH ROM by 15 degrees for OH functional activities such as using her general studies program chair and donning her clothes STG Duration 4 weeks Halfway Goal (LTG) increase overall L GH ROM by 30 degrees for OH functional activities such as using her general studies program chair and donning her clothes LTG Duration 8 weeks One Impairment pain Short Term Goal (STG) Reduce L shoulder pain by 2points during shoulder flexion, abduction and ER STG Duration 4 weeks Halfway Goal (LTG) Reduce L shoulder pain by 4 points during shoulder flexion , abduction and ER LTG Duration 8 weeks Assessment Summary Assessment Pt c/o new onset of L shoulder pain 02/02 s/p fall on . Pt states her symptoms has been getting better over the past 3 weeks but still lack of full ROM and overall shoulder strength. Upon assessment, pt presents symptoms of L RTC strain due to her mechanism of injury (abrupt scapular protraction and elevation). Pt presents decreased overall L GH ROM (flexion> abduction > ER), along with painful arc and pain during ER at end range. Patient reports pain decreased with PROM and AROM with gravity eliminated position (supine/ sidelying). She also demonstrates compensatory movement pattern with excessive activation of L UT and LS during oberhead movements. She also presents decreased overall L GH stability and scapular mobility (upward rotation and downward rotation). However, pt anel tx well today with immediate increase in GH ROM with reduced pain after STM and mobilization with assisted scap upward rotation and downward rotation. Pt will benefit from skilled PT to address her aforementioned multiple impairments to return PLOF in pain free. HEP includes supine cane flexion, abduction and ER; scapular roll in sitting. Physical Therapy Plan Therapeutic Interventions Therapeutic Interventions Home Exercise Program Joint Mobilizations Manual Therapy Neuromuscular Re-education Soft Tissue Mobilization Taping Therapeutic Activities Therapeutic Exercises Modalities Cold Pack/Ice Massage Electric Stimulation Next Visit Focus/Plan Next Note Type Treatment Note Next Visit Plan KT tape if needed progress AAROM/ PROM as tolerated (gravity eliminated / against gravity) OH becki as well. scap mob (upward rotation and downward rotation) with shoulder movements UT and LS relaxation
--- NOTE | 2018-07-28 09:23 | PT.OIE ---
Current Diagnoses Pain in left shoulder (07/28/18) Past Medical History (Last Updated 07/10/18 @ 11:33 by Briana Cramer DO) Patent foramen ovale (Acute) Provider Visit Care Team Role Provider Type Viky Seymour MD Attending Provider Physician Family Provider Primary Care Provider Specialty: Family Practice Address: [address] [place] [address], [id number] Email: Physical Therapy Initial Evaluation PT-OP-A Visit Information Start: 07/22/18 13:01 Freq: Status: Active Protocol: Document 07/22/18 12:00 (Rec: 07/22/18 13:49 [email or web address]) Out-Patient Physical Therapy Visit Information Visit Information Visit Type Initial Evaluation Visit Note L shoulder pain post fall Visit Start Time 12:00 Visit Stop Time 12:50 Total Visit Minutes 50 Visit Number 1 Number of CITRIX ENGINEER Visits 0 Evaluation Information Evaluation Date 07/22/18 PT-OP-B Current Condition Start: 07/22/18 13:01 Freq: Status: Active Protocol: Document 07/22/18 12:00 (Rec: 07/22/18 13:49 [email or web address]) Current Condition History of Current Condition Onset Date 07/22/18 Current Complaints L shoulder pain post fall History of Current Condition Pt is a 82yo pleasant female who presents to clinic with L shoulder pain since 07/10/18 after a fall. Pt fell on the street during negotiating a curb who landed on her L side of the face and L shoulder. Pt was admitted to the ER at with negative findings on X- ray for L shoulder fx. Pt c/o L shoulder pain 02/02 since then. Pain gets worse during mobility and functional activities such as OH movements from using a haircutter, donning her clothers, lifting boxes and cooking. Pt does report her symptoms and pain has been getting better over the past 3 weeks and starts to regain part of ROM but not so much for the strength. Pt currently cannot participate her gym class at [employer] due to her shoulder pain. Prior Treatments and Tests Pt received PT for her stroke 10 years ago Treatment Goals Patient/Caregiver Goals expects to reach PLOF in pain free such as using haircutter, cooking, doning her clothes and lifting boxes; to participate her gym class at [employer] 3x/week; return to walking 3miles /day Prior Functional Status Baseline Function- ADL's Independent Baseline Function- Mobility Independent Current Functional Impairments (Reported) Functional Limitations- ADL's Pain during OH movements and lifting who requires her 's help when needed Functional Limitations- Mobility/Gait Pain during OH movements and lifting who requires her 's help when needed PT-OP-C Subjective Start: 07/22/18 13:01 Freq: Status: Active Protocol: Document 07/22/18 12:00 (Rec: 07/22/18 13:49 [email or web address]) OP-PT Subjective Patient Comments Patient Comments c/o L shoulder pain since Patient Reported Progress Improving Patient Questionnaires Quick Dash- Upper Extremity Quick Dash UE Score 43.18 Quick Dash UE Impairment 40 to 59% Impaired (Score 40- 59) OP-PT Pain Assessment Location Left Shoulder Intensity 7 Scale Used Numeric (1 - 10) Description Aching Dull Frequency Frequent Pain Aggravating Factors ADL's Activity Exercise Lifting Pain Alleviating Factors Inactivity Massage PT-OP-F Manual Assessment Start: 07/22/18 13:01 Freq: Status: Active Protocol: Document 07/22/18 12:00 (Rec: 07/22/18 13:49 [email or web address]) Manual Assessments Soft Tissue Assessment Soft Tissue Mobility Assessment significant tenderness at L UE and Pec major and minor Joint Mobility Assessment Joint Mobility Assessment hypomobile at L scapula upward and downward rotation PT-OP-K Range of Motion Start: 07/22/18 13:01 Freq: Status: Active Protocol: Document 07/22/18 12:00 (Rec: 07/22/18 13:49 [email or web address]) Shoulder Goniometric Range of Motion Shoulder Measured in Degrees Right Active Shoulder ROM WFL Yes Testing Position Sitting Flexion 170 Extension 50 Abduction 170 External Rotation at 90 degrees 80 Abduction Internal Rotation 80 Left Active Shoulder ROM WFL No Testing Position Sitting Flexion 160 Extension 30 Abduction 145 External Rotation at 90 degrees 50 Abduction Internal Rotation 80 PT-OP-L Special Tests Start: 07/22/18 13:01 Freq: Status: Active Protocol: Document 07/22/18 12:00 (Rec: 07/22/18 13:49 [email or web address]) Special Tests Shoulder Special Tests painful arc Test Results +ve Comments most painful at 90 abduction Elevation Impingement Test Results +ve Comments most painful at 90 abduction concentrically and eccentrically Drop Arm Rotator Cuff Test Results -ve Passive ER Rotator Cuff Test Results +ve Comments pain reproduced at ER 50 degrees PT-OP-M Strength Start: 07/22/18 13:01 Freq: Status: Active Protocol: Document 07/22/18 12:00 (Rec: 07/22/18 13:49 [email or web address]) Shoulder Strength Shoulder Manual Muscle Testing Right Flexion 4+ Good+ Extension 4+ Good+ Abduction (C5) 4+ Good+ External Rotation 4+ Good+ Internal Rotation 4+ Good+ Left Flexion 3+ Fair+ Extension 4- Good- Abduction (C5) 3+ Fair+ External Rotation 3 Fair Internal Rotation 4- Good- PT-OP-Q Treatments Start: 07/22/18 13:01 Freq: Status: Active Protocol: Document 07/22/18 12:00 (Rec: 07/22/18 13:49 [email or web address]) Therapeutic Exercises Supine Exercises supine L GH flexion Side left Reps/Minutes 2 mins wand PROM and AAROM Supine Exercise Name cane Side left Equipment Used cane Reps/Minutes 10 mins Sitting Exercises scapular roll Sitting Exercise Name retraction, protraction Side bilateral Reps/Minutes 5 mins Manual Therapy Treatment Soft Tissue Mobilization UT and pec Mobilization Type Cross-Friction Myofascial Release Intensity/Depth Moderate Body Position Supine Joint Mobilizations scap UR and DR Joint L scap upward and downward rotation with GH movements Grade III Body Position Sidelying Comments with assisted L GH flexion and abduction PT-OP-T Assessment and Plan Start: 07/22/18 13:01 Freq: Status: Active Protocol: Document 07/22/18 12:00 (Rec: 07/22/18 13:49 [email or web address]) Physical Therapy Assessment Rehab Potential Rehabilitation Potential Good Evaluation Complexity Number of Personal Factors/Comorbidities 1-2 Number of Body Systems Impaired 1-2 Clinical Presentation at Evaluation Stable Impairments Impairments Activity Tolerance Functional Activities Functional Mobility Pain Posture ROM Soft Tissue Mobility Strength Goals 4 Impairment strength Short Term Goal (STG) increase overall L GH strength by 1/2 MMT for returning PLOF such as holding a pot during cooking STG Duration 4 weeks Snf Goal (LTG) increase overall L GH strength by 1 MMT for returning PLOF such as holding a pot during cooking LTG Duration 8 weeks Three Impairment participation Short Term Goal (STG) able to participate her gym class 1x / week for overall strengthening. STG Duration 4 weeks Snf Goal (LTG) able to participate her gym class 2x / week for overall strengthening. LTG Duration 8 weeks Two Impairment ROM Short Term Goal (STG) increase overall L GH ROM by 15 degrees for OH functional activities such as using her fine hairer and donning her clothes STG Duration 4 weeks Snf Goal (LTG) increase overall L GH ROM by 30 degrees for OH functional activities such as using her fine hairer and donning her clothes LTG Duration 8 weeks One Impairment pain Short Term Goal (STG) Reduce L shoulder pain by 2points during shoulder flexion, abduction and ER STG Duration 4 weeks Sr. Manager Marketing Goal (LTG) Reduce L shoulder pain by 4 points during shoulder flexion , abduction and ER LTG Duration 8 weeks Assessment Summary Assessment Pt c/o new onset of L shoulder pain 02/02 s/p fall on . Pt states her symptoms has been getting better over the past 3 weeks but still lack of full ROM and overall shoulder strength. Upon assessment, pt presents symptoms of L RTC strain due to her mechanism of injury (abrupt scapular protraction and elevation). Pt presents decreased overall L GH ROM (flexion> abduction > ER), along with painful arc and pain during ER at end range. Patient reports pain decreased with PROM and AROM with gravity eliminated position (supine/ sidelying). She also demonstrates compensatory movement pattern with excessive activation of L UT and LS during oberhead movements. She also presents decreased overall L GH stability and scapular mobility (upward rotation and downward rotation). However, pt anel tx well today with immediate increase in GH ROM with reduced pain after STM and mobilization with assisted scap upward rotation and downward rotation. Pt will benefit from skilled PT to address her aforementioned multiple impairments to return PLOF in pain free. HEP includes supine cane flexion, abduction and ER; scapular roll in sitting. Physical Therapy Plan Frequency and Duration Frequency of Treatment 2x/Week Duration of Treatment 8 weeks Plan of Care Start Date 07/22/18 Plan of Care End Date 09/15/18 Therapeutic Interventions Therapeutic Interventions Home Exercise Program Joint Mobilizations Manual Therapy Neuromuscular Re-education Soft Tissue Mobilization Taping Therapeutic Activities Therapeutic Exercises Modalities Cold Pack/Ice Massage Electric Stimulation Next Visit Focus/Plan Next Note Type Treatment Note Next Visit Plan KT tape if needed progress AAROM/ PROM as tolerated (gravity eliminated / against gravity) OH becki as well. scap mob (upward rotation and downward rotation) with shoulder movements UT and LS relaxation
--- NOTE | 2018-07-28 09:51 | PT.OTN ---
Current Diagnoses Pain in left shoulder (07/28/18) Physical Therapy Treatment Note PT-OP-A Visit Information Start: 07/22/18 13:01 Freq: Status: Active Protocol: Document 07/28/18 08:37 [facility] (Rec: 07/28/18 09:50 [facility] [id number]) Out-Patient Physical Therapy Visit Information Visit Information Visit Type Treatment Note Visit Note 1 visit for 2019 Visit Start Time 09:00 Visit Stop Time 09:50 Total Visit Minutes 50 Visit Number 2/10 Number of FILE SYSTEM INSTALLER Visits 0 PT-OP-B Current Condition Start: 07/22/18 13:01 Freq: Status: Active Protocol: Document 07/22/18 12:00 HH (Rec: 07/22/18 13:49 [email or web address]) Current Condition History of Current Condition Onset Date 07/22/18 Current Complaints L shoulder pain post fall History of Current Condition Pt is a 82yo pleasant female who presents to clinic with L shoulder pain since 07/10/18 after a fall. Pt fell on the street during negotiating a curb who landed on her L side of the face and L shoulder. Pt was admitted to the ER at with negative findings on X- ray for L shoulder fx. Pt c/o L shoulder pain 02/02 since then. Pain gets worse during mobility and functional activities such as OH movements from using a mathematics department chair, donning her clothers, lifting boxes and cooking. Pt does report her symptoms and pain has been getting better over the past 3 weeks and starts to regain part of ROM but not so much for the strength. Pt currently cannot participate her gym class at [employer] due to her shoulder pain. Prior Treatments and Tests Pt received PT for her stroke 10 years ago Treatment Goals Patient/Caregiver Goals expects to reach PLOF in pain free such as using mathematics department chair, cooking, doning her clothes and lifting boxes; to participate her gym class at [employer] 3x/week; return to walking 3miles /day Prior Functional Status Baseline Function- ADL's Independent Baseline Function- Mobility Independent Current Functional Impairments (Reported) Functional Limitations- ADL's Pain during OH movements and lifting who requires her 's help when needed Functional Limitations- Mobility/Gait Pain during OH movements and lifting who requires her 's help when needed PT-OP-C Subjective Start: 07/22/18 13:01 Freq: Status: Active Protocol: Document 07/28/18 08:37 [facility] (Rec: 07/28/18 09:50 [facility] [id number]) OP-PT Subjective Patient Comments Patient Comments Reports exercises are okay. PT-OP-F Manual Assessment Start: 07/22/18 13:01 Freq: Status: Active Protocol: Document 07/22/18 12:00 HH (Rec: 07/22/18 13:49 [email or web address]) Manual Assessments Soft Tissue Assessment Soft Tissue Mobility Assessment significant tenderness at L UE and Pec major and minor Joint Mobility Assessment Joint Mobility Assessment hypomobile at L scapula upward and downward rotation PT-OP-K Range of Motion Start: 07/22/18 13:01 Freq: Status: Active Protocol: Document 07/22/18 12:00 HH (Rec: 07/22/18 13:49 [email or web address]) Shoulder Goniometric Range of Motion Shoulder Measured in Degrees Right Active Shoulder ROM WFL Yes Testing Position Sitting Flexion 170 Extension 50 Abduction 170 External Rotation at 90 degrees 80 Abduction Internal Rotation 80 Left Active Shoulder ROM WFL No Testing Position Sitting Flexion 160 Extension 30 Abduction 145 External Rotation at 90 degrees 50 Abduction Internal Rotation 80 PT-OP-L Special Tests Start: 07/22/18 13:01 Freq: Status: Active Protocol: Document 07/22/18 12:00 HH (Rec: 07/22/18 13:49 [email or web address]) Special Tests Shoulder Special Tests painful arc Test Results +ve Comments most painful at 90 abduction Elevation Impingement Test Results +ve Comments most painful at 90 abduction concentrically and eccentrically Drop Arm Rotator Cuff Test Results -ve Passive ER Rotator Cuff Test Results +ve Comments pain reproduced at ER 50 degrees PT-OP-M Strength Start: 07/22/18 13:01 Freq: Status: Active Protocol: Document 07/22/18 12:00 HH (Rec: 07/22/18 13:49 [email or web address]) Shoulder Strength Shoulder Manual Muscle Testing Right Flexion 4+ Good+ Extension 4+ Good+ Abduction (C5) 4+ Good+ External Rotation 4+ Good+ Internal Rotation 4+ Good+ Left Flexion 3+ Fair+ Extension 4- Good- Abduction (C5) 3+ Fair+ External Rotation 3 Fair Internal Rotation 4- Good- PT-OP-Q Treatments Start: 07/22/18 13:01 Freq: Status: Active Protocol: Document 07/28/18 08:37 [facility] (Rec: 07/28/18 09:50 [facility] [id number]) Cardio Equipment Upper Body Ergometer (UBE) Duration (Minutes) 6 RPM 60 Seat Position 11 Height 3.5 Other fwd & back Therapeutic Exercises Supine Exercises wand ER 45 deg Supine Exercise Name ER Side left Equipment Used cane Reps/Minutes 15 wand PROM and AAROM Supine Exercise Name cane Side left Equipment Used cane Reps/Minutes 10 Sitting Exercises 1 Sitting Exercise Name pully flex, abd & IR Standing Exercises 2 Standing Exercise Name AAROM shoulder ext w/tbar Reps/Minutes 20 1 Standing Exercise Name Row Side bilateral Resistance L1 Reps/Minutes 15 Manual Therapy Treatment Soft Tissue Mobilization UT and pec Body Location Ut, LS, pec Mobilization Type Cross-Friction Myofascial Release Intensity/Depth Moderate Body Position Supine Joint Mobilizations 1 Joint GH Direction distraction w/passive abd & flex, post glides sustained PT-OP-R Modalities Start: 07/22/18 13:01 Freq: Status: Active Protocol: Document 07/28/18 08:37 [facility] (Rec: 07/28/18 09:50 [facility] [id number]) Hot Pack/Cold Pack Treatment Hot Pack Location L shoulder Patient Position Supine Treatment Duration (minutes) 10 Patient Tolerance Good PT-OP-T Assessment and Plan Start: 07/22/18 13:01 Freq: Status: Active Protocol: Document 07/28/18 08:37 [facility] (Rec: 07/28/18 09:50 [facility] [id number]) Physical Therapy Assessment Goals 4 Impairment strength Short Term Goal (STG) increase overall L GH strength by 1/2 MMT for returning PLOF such as holding a pot during cooking STG Duration 4 weeks Band Cutter Goal (LTG) increase overall L GH strength by 1 MMT for returning PLOF such as holding a pot during cooking LTG Duration 8 weeks Three Impairment participation Short Term Goal (STG) able to participate her gym class 1x / week for overall strengthening. STG Duration 4 weeks Band Cutter Goal (LTG) able to participate her gym class 2x / week for overall strengthening. LTG Duration 8 weeks Two Impairment ROM Short Term Goal (STG) increase overall L GH ROM by 15 degrees for OH functional activities such as using her chairman emeritus and donning her clothes STG Duration 4 weeks Band Cutter Goal (LTG) increase overall L GH ROM by 30 degrees for OH functional activities such as using her chairman emeritus and donning her clothes LTG Duration 8 weeks One Impairment pain Short Term Goal (STG) Reduce L shoulder pain by 2points during shoulder flexion, abduction and ER STG Duration 4 weeks Fdc Goal (LTG) Reduce L shoulder pain by 4 points during shoulder flexion , abduction and ER LTG Duration 8 weeks Assessment Summary Assessment Pt able to go through full passive abd & flex with distractive glide of GH joint. Improved IR with post glide. She was able to do exercises with cueing for slowing down and using RUE more during AARO exercises. Physical Therapy Plan Next Visit Focus/Plan Next Note Type Treatment Note Next Visit Plan Cont to advance AAROM as tolerated, KT to help with GH mechanics
--- NOTE | 2018-08-03 15:48 | PT.OTN ---
Current Diagnoses Pain in left shoulder (08/03/18) Physical Therapy Treatment Note PT-OP-A Visit Information Start: 07/22/18 13:01 Freq: Status: Active Protocol: Document 08/03/18 15:38 SA (Rec: 08/03/18 15:48 SA [email or web address]) Out-Patient Physical Therapy Visit Information Visit Information Visit Type Treatment Note Visit Start Time 14:30 Visit Stop Time 15:16 Total Visit Minutes 46 Visit Number 3/10 Number of ANESTHESIOLOGY TECHNOLOGIST Visits 1 PT-OP-B Current Condition Start: 07/22/18 13:01 Freq: Status: Active Protocol: Document 07/22/18 12:00 HH (Rec: 07/22/18 13:49 HH [email or web address]) Current Condition History of Current Condition Onset Date 07/22/18 Current Complaints L shoulder pain post fall History of Current Condition Pt is a 82yo pleasant female who presents to clinic with L shoulder pain since 07/10/18 after a fall. Pt fell on the street during negotiating a curb who landed on her L side of the face and L shoulder. Pt was admitted to the ER at with negative findings on X- ray for L shoulder fx. Pt c/o L shoulder pain 02/02 since then. Pain gets worse during mobility and functional activities such as OH movements from using a division chair, donning her clothers, lifting boxes and cooking. Pt does report her symptoms and pain has been getting better over the past 3 weeks and starts to regain part of ROM but not so much for the strength. Pt currently cannot participate her gym class at [employer] due to her shoulder pain. Prior Treatments and Tests Pt received PT for her stroke 10 years ago Treatment Goals Patient/Caregiver Goals expects to reach PLOF in pain free such as using division chair, cooking, doning her clothes and lifting boxes; to participate her gym class at [employer] 3x/week; return to walking 3miles /day Prior Functional Status Baseline Function- ADL's Independent Baseline Function- Mobility Independent Current Functional Impairments (Reported) Functional Limitations- ADL's Pain during OH movements and lifting who requires her 's help when needed Functional Limitations- Mobility/Gait Pain during OH movements and lifting who requires her 's help when needed PT-OP-C Subjective Start: 07/22/18 13:01 Freq: Status: Active Protocol: Document 08/03/18 15:38 SA (Rec: 08/03/18 15:48 SA [email or web address]) OP-PT Subjective Patient Comments Patient Comments Had an appointment with this AM, she is worried that My strength is progressing slowly. Have a follow up in one month. PT-OP-F Manual Assessment Start: 07/22/18 13:01 Freq: Status: Active Protocol: Document 07/22/18 12:00 HH (Rec: 07/22/18 13:49 [email or web address]) Manual Assessments Soft Tissue Assessment Soft Tissue Mobility Assessment significant tenderness at L UE and Pec major and minor Joint Mobility Assessment Joint Mobility Assessment hypomobile at L scapula upward and downward rotation PT-OP-K Range of Motion Start: 07/22/18 13:01 Freq: Status: Active Protocol: Document 07/22/18 12:00 HH (Rec: 07/22/18 13:49 [email or web address]) Shoulder Goniometric Range of Motion Shoulder Measured in Degrees Right Active Shoulder ROM WFL Yes Testing Position Sitting Flexion 170 Extension 50 Abduction 170 External Rotation at 90 degrees 80 Abduction Internal Rotation 80 Left Active Shoulder ROM WFL No Testing Position Sitting Flexion 160 Extension 30 Abduction 145 External Rotation at 90 degrees 50 Abduction Internal Rotation 80 PT-OP-L Special Tests Start: 07/22/18 13:01 Freq: Status: Active Protocol: Document 07/22/18 12:00 HH (Rec: 07/22/18 13:49 [email or web address]) Special Tests Shoulder Special Tests painful arc Test Results +ve Comments most painful at 90 abduction Elevation Impingement Test Results +ve Comments most painful at 90 abduction concentrically and eccentrically Drop Arm Rotator Cuff Test Results -ve Passive ER Rotator Cuff Test Results +ve Comments pain reproduced at ER 50 degrees PT-OP-M Strength Start: 07/22/18 13:01 Freq: Status: Active Protocol: Document 07/22/18 12:00 HH (Rec: 07/22/18 13:49 [email or web address]) Shoulder Strength Shoulder Manual Muscle Testing Right Flexion 4+ Good+ Extension 4+ Good+ Abduction (C5) 4+ Good+ External Rotation 4+ Good+ Internal Rotation 4+ Good+ Left Flexion 3+ Fair+ Extension 4- Good- Abduction (C5) 3+ Fair+ External Rotation 3 Fair Internal Rotation 4- Good- PT-OP-Q Treatments Start: 07/22/18 13:01 Freq: Status: Active Protocol: Document 08/03/18 15:38 SA (Rec: 08/03/18 15:48 SA [email or web address]) Cardio Equipment Upper Body Ergometer (UBE) Duration (Minutes) 6 RPM 60 Seat Position 11 Height 3.5 Other fwd & back Therapeutic Exercises Supine Exercises wand ER 45 deg Supine Exercise Name ER Side left Equipment Used cane Reps/Minutes 15 supine L GH flexion Side left Reps/Minutes 2 mins wand PROM and AAROM Supine Exercise Name cane Side left Equipment Used cane Reps/Minutes 15 Sitting Exercises scapular roll Sitting Exercise Name retraction, protraction Side bilateral Reps/Minutes 2 min Standing Exercises 2 Standing Exercise Name AAROM shoulder ext w/tbar Reps/Minutes 20 1 Standing Exercise Name Row Side bilateral Resistance L1 Reps/Minutes 20 Manual Therapy Treatment Soft Tissue Mobilization UT and pec Body Location Ut, LS, pec Mobilization Type Cross-Friction Myofascial Release Intensity/Depth Moderate Body Position Supine Joint Mobilizations 1 Joint GH Direction distraction w/passive abd & flex, post glides sustained PT-OP-R Modalities Start: 07/22/18 13:01 Freq: Status: Active Protocol: Document 08/03/18 15:38 (Rec: 08/03/18 15:48 [email or web address]) Hot Pack/Cold Pack Treatment Hot Pack Location L shoulder Patient Position Supine Treatment Duration (minutes) 10 Patient Tolerance Good PT-OP-T Assessment and Plan Start: 07/22/18 13:01 Freq: Status: Active Protocol: Document 08/03/18 15:38 (Rec: 08/03/18 15:48 [email or web address]) Physical Therapy Assessment Assessment Summary Assessment Noted L biceps muscle spasm with increased point tenderness to area. Pt able to go through full passive Flexion with GH distractive glide. Pt doing HEP daily. Physical Therapy Plan Next Visit Focus/Plan Next Note Type Treatment Note Next Visit Plan Cont to progress AAROM and strengthening as able. Assess response to manual therapy.
--- NOTE | 2018-08-06 10:42 | PT.OTN ---
Current Diagnoses Pain in left shoulder (08/06/18) Physical Therapy Treatment Note PT-OP-A Visit Information Start: 07/22/18 13:01 Freq: Status: Active Protocol: Document 08/06/18 10:30 SA (Rec: 08/06/18 10:42 SA [email or web address]) Out-Patient Physical Therapy Visit Information Visit Information Visit Type Treatment Note Visit Start Time 09:20 Visit Stop Time 09:07 Visit Number 4/10 Number of DIRECTOR OF INVESTIGATIONS Visits 2 PT-OP-B Current Condition Start: 07/22/18 13:01 Freq: Status: Active Protocol: Document 07/22/18 12:00 HH (Rec: 07/22/18 13:49 [email or web address]) Current Condition History of Current Condition Onset Date 07/22/18 Current Complaints L shoulder pain post fall History of Current Condition Pt is a 82yo pleasant female who presents to clinic with L shoulder pain since 07/10/18 after a fall. Pt fell on the street during negotiating a curb who landed on her L side of the face and L shoulder. Pt was admitted to the ER at with negative findings on X- ray for L shoulder fx. Pt c/o L shoulder pain 02/02 since then. Pain gets worse during mobility and functional activities such as OH movements from using a hair sample matcher, donning her clothers, lifting boxes and cooking. Pt does report her symptoms and pain has been getting better over the past 3 weeks and starts to regain part of ROM but not so much for the strength. Pt currently cannot participate her gym class at [employer] due to her shoulder pain. Prior Treatments and Tests Pt received PT for her stroke 10 years ago Treatment Goals Patient/Caregiver Goals expects to reach PLOF in pain free such as using hair sample matcher, cooking, doning her clothes and lifting boxes; to participate her gym class at [employer] 3x/week; return to walking 3miles /day Prior Functional Status Baseline Function- ADL's Independent Baseline Function- Mobility Independent Current Functional Impairments (Reported) Functional Limitations- ADL's Pain during OH movements and lifting who requires her 's help when needed Functional Limitations- Mobility/Gait Pain during OH movements and lifting who requires her 's help when needed PT-OP-C Subjective Start: 07/22/18 13:01 Freq: Status: Active Protocol: Document 08/06/18 10:30 SA (Rec: 08/06/18 10:42 SA [email or web address]) OP-PT Subjective Patient Comments Patient Comments Pt reported feeling quite sore after last visit, did not do HEP as it was too painful. Just today feeling and moving a little better. PT-OP-F Manual Assessment Start: 07/22/18 13:01 Freq: Status: Active Protocol: Document 07/22/18 12:00 HH (Rec: 07/22/18 13:49 [email or web address]) Manual Assessments Soft Tissue Assessment Soft Tissue Mobility Assessment significant tenderness at L UE and Pec major and minor Joint Mobility Assessment Joint Mobility Assessment hypomobile at L scapula upward and downward rotation PT-OP-K Range of Motion Start: 07/22/18 13:01 Freq: Status: Active Protocol: Document 07/22/18 12:00 HH (Rec: 07/22/18 13:49 [email or web address]) Shoulder Goniometric Range of Motion Shoulder Measured in Degrees Right Active Shoulder ROM WFL Yes Testing Position Sitting Flexion 170 Extension 50 Abduction 170 External Rotation at 90 degrees 80 Abduction Internal Rotation 80 Left Active Shoulder ROM WFL No Testing Position Sitting Flexion 160 Extension 30 Abduction 145 External Rotation at 90 degrees 50 Abduction Internal Rotation 80 PT-OP-L Special Tests Start: 07/22/18 13:01 Freq: Status: Active Protocol: Document 07/22/18 12:00 HH (Rec: 07/22/18 13:49 [email or web address]) Special Tests Shoulder Special Tests painful arc Test Results +ve Comments most painful at 90 abduction Elevation Impingement Test Results +ve Comments most painful at 90 abduction concentrically and eccentrically Drop Arm Rotator Cuff Test Results -ve Passive ER Rotator Cuff Test Results +ve Comments pain reproduced at ER 50 degrees PT-OP-M Strength Start: 07/22/18 13:01 Freq: Status: Active Protocol: Document 07/22/18 12:00 HH (Rec: 07/22/18 13:49 [email or web address]) Shoulder Strength Shoulder Manual Muscle Testing Right Flexion 4+ Good+ Extension 4+ Good+ Abduction (C5) 4+ Good+ External Rotation 4+ Good+ Internal Rotation 4+ Good+ Left Flexion 3+ Fair+ Extension 4- Good- Abduction (C5) 3+ Fair+ External Rotation 3 Fair Internal Rotation 4- Good- PT-OP-Q Treatments Start: 12/27/18 13:01 Freq: Status: Active Protocol: Document 08/06/18 10:30 SA (Rec: 08/06/18 10:42 [email or web address]) Cardio Equipment Upper Body Ergometer (UBE) Duration (Minutes) 6 RPM 60 Seat Position 11 Height 3.5 Other fwd & back Therapeutic Exercises Supine Exercises wand ER 45 deg Supine Exercise Name ER Side left Equipment Used cane Reps/Minutes 15 supine L GH flexion Side left Reps/Minutes 2 mins wand PROM and AAROM Supine Exercise Name cane Side left Equipment Used cane Reps/Minutes 15 Sitting Exercises scapular roll Sitting Exercise Name retraction, protraction Side bilateral Reps/Minutes 2 min 1 Sitting Exercise Name pully flex, abd & IR Side left Reps/Minutes 2 min Standing Exercises 1 Standing Exercise Name Row Side bilateral Resistance L1 Reps/Minutes 20 Manual Therapy Treatment Soft Tissue Mobilization UT and pec Body Location Ut, LS, pec Mobilization Type Cross-Friction Myofascial Release Intensity/Depth Moderate Body Position Supine Joint Mobilizations scap UR and DR Joint L scap upward and downward rotation with GH movements Grade III Body Position Sidelying Comments with assisted L GH flexion and abduction PT-OP-R Modalities Start: 07/22/18 13:01 Freq: Status: Active Protocol: Document 08/06/18 10:30 SA (Rec: 08/06/18 10:42 [email or web address]) Hot Pack/Cold Pack Treatment Hot Pack Location L shoulder Patient Position Supine Treatment Duration (minutes) 10 Patient Tolerance Good PT-OP-T Assessment and Plan Start: 07/22/18 13:01 Freq: Status: Active Protocol: Document 08/06/18 10:30 SA (Rec: 08/06/18 10:42 [email or web address]) Physical Therapy Assessment Assessment Summary Assessment Focused STM treatment on UTs/ interscapular area, biceps muscle spasm still present. Pt to skip outside exercise class today but plans to resume next week if symptoms decrease. Will continue HEP as tolerated. Physical Therapy Plan Next Visit Focus/Plan Next Note Type Treatment Note Next Visit Plan Assess response to ther ex and manual therapy, progress AAROM as tolerated.
--- NOTE | 2018-08-10 10:08 | PT.OTN ---
Current Diagnoses Pain in left shoulder (08/10/18) Physical Therapy Treatment Note PT-OP-A Visit Information Start: 07/22/18 13:01 Freq: Status: Active Protocol: Document 08/10/18 09:45 SA (Rec: 08/10/18 10:08 SA [email or web address]) Out-Patient Physical Therapy Visit Information Visit Information Visit Type Treatment Note Visit Start Time 08:15 Visit Stop Time 09:01 Visit Number 5/10 Number of TAPE RECORDING MACHINE OPERATOR Visits 3 PT-OP-B Current Condition Start: 07/22/18 13:01 Freq: Status: Active Protocol: Document 07/22/18 12:00 (Rec: 07/22/18 13:49 [email or web address]) Current Condition History of Current Condition Onset Date 07/22/18 Current Complaints L shoulder pain post fall History of Current Condition Pt is a 82yo pleasant female who presents to clinic with L shoulder pain since 07/10/18 after a fall. Pt fell on the street during negotiating a curb who landed on her L side of the face and L shoulder. Pt was admitted to the ER at with negative findings on X- ray for L shoulder fx. Pt c/o L shoulder pain 02/02 since then. Pain gets worse during mobility and functional activities such as OH movements from using a power wheelchair mechanic, donning her clothers, lifting boxes and cooking. Pt does report her symptoms and pain has been getting better over the past 3 weeks and starts to regain part of ROM but not so much for the strength. Pt currently cannot participate her gym class at [employer] due to her shoulder pain. Prior Treatments and Tests Pt received PT for her stroke 10 years ago Treatment Goals Patient/Caregiver Goals expects to reach PLOF in pain free such as using power wheelchair mechanic, cooking, doning her clothes and lifting boxes; to participate her gym class at [employer] 3x/week; return to walking 3miles /day Prior Functional Status Baseline Function- ADL's Independent Baseline Function- Mobility Independent Current Functional Impairments (Reported) Functional Limitations- ADL's Pain during OH movements and lifting who requires her 's help when needed Functional Limitations- Mobility/Gait Pain during OH movements and lifting who requires her 's help when needed PT-OP-C Subjective Start: 07/22/18 13:01 Freq: Status: Active Protocol: Document 08/10/18 09:45 SA (Rec: 08/10/18 10:08 SA [email or web address]) OP-PT Subjective Patient Comments Patient Comments Pt reports having decreased symptoms after last visit and was able to tolerate HEP and did her own hair which requires a lot of over head time. PT-OP-F Manual Assessment Start: 07/22/18 13:01 Freq: Status: Active Protocol: Document 07/22/18 12:00 HH (Rec: 07/22/18 13:49 [email or web address]) Manual Assessments Soft Tissue Assessment Soft Tissue Mobility Assessment significant tenderness at L UE and Pec major and minor Joint Mobility Assessment Joint Mobility Assessment hypomobile at L scapula upward and downward rotation PT-OP-K Range of Motion Start: 07/22/18 13:01 Freq: Status: Active Protocol: Document 07/22/18 12:00 HH (Rec: 07/22/18 13:49 [email or web address]) Shoulder Goniometric Range of Motion Shoulder Measured in Degrees Right Active Shoulder ROM WFL Yes Testing Position Sitting Flexion 170 Extension 50 Abduction 170 External Rotation at 90 degrees 80 Abduction Internal Rotation 80 Left Active Shoulder ROM WFL No Testing Position Sitting Flexion 160 Extension 30 Abduction 145 External Rotation at 90 degrees 50 Abduction Internal Rotation 80 PT-OP-L Special Tests Start: 07/22/18 13:01 Freq: Status: Active Protocol: Document 07/22/18 12:00 HH (Rec: 07/22/18 13:49 [email or web address]) Special Tests Shoulder Special Tests painful arc Test Results +ve Comments most painful at 90 abduction Elevation Impingement Test Results +ve Comments most painful at 90 abduction concentrically and eccentrically Drop Arm Rotator Cuff Test Results -ve Passive ER Rotator Cuff Test Results +ve Comments pain reproduced at ER 50 degrees PT-OP-M Strength Start: 07/22/18 13:01 Freq: Status: Active Protocol: Document 07/22/18 12:00 HH (Rec: 07/22/18 13:49 [email or web address]) Shoulder Strength Shoulder Manual Muscle Testing Right Flexion 4+ Good+ Extension 4+ Good+ Abduction (C5) 4+ Good+ External Rotation 4+ Good+ Internal Rotation 4+ Good+ Left Flexion 3+ Fair+ Extension 4- Good- Abduction (C5) 3+ Fair+ External Rotation 3 Fair Internal Rotation 4- Good- PT-OP-Q Treatments Start: 07/22/18 13:01 Freq: Status: Active Protocol: Document 08/10/18 09:45 (Rec: 08/10/18 10:08 [email or web address]) Cardio Equipment Upper Body Ergometer (UBE) Duration (Minutes) 6 RPM 60 Seat Position 11 Height 3.5 Other fwd & back Therapeutic Exercises Supine Exercises wand ER 45 deg Supine Exercise Name ER Side left Equipment Used cane Reps/Minutes 15 supine L GH flexion Side left Reps/Minutes 2 mins Sitting Exercises 1 Sitting Exercise Name pully flex, abd & IR Side left Reps/Minutes 2 min Standing Exercises SLS Side bilateral Reps/Minutes 5-10 x 3 each side shoulder EXT Side left Resistance L2 TB Reps/Minutes 15x 1 Standing Exercise Name Row Side bilateral Resistance L2 Reps/Minutes 20 Other Exercises Hurdles step overs Equipment Used hurdles Reps/Minutes 6 lengths of bar Comments limited UE support/focus on slow speed and control Manual Therapy Treatment Soft Tissue Mobilization UT and pec Body Location Ut, LS, pec Mobilization Type Cross-Friction Myofascial Release Intensity/Depth Moderate Body Position Supine Joint Mobilizations 1 Joint GH Direction distraction w/passive abd & flex, post glides sustained PT-OP-R Modalities Start: 07/22/18 13:01 Freq: Status: Active Protocol: Document 08/10/18 09:45 (Rec: 08/10/18 10:08 [email or web address]) Hot Pack/Cold Pack Treatment Hot Pack Location L shoulder Patient Position Supine Treatment Duration (minutes) 10 Patient Tolerance Good PT-OP-T Assessment and Plan Start: 07/22/18 13:01 Freq: Status: Active Protocol: Document 08/10/18 09:45 (Rec: 08/10/18 10:08 [email or web address]) Physical Therapy Assessment Assessment Summary Assessment Pt with new treatment diagnosis of unsteady gait, added SLS and kaden step overs to challenge balance. Continued with shoulder ther ex and progression of L shoulder ROM and strengthening and ROM. Tolerated manual therapy and ther ex well today . Physical Therapy Plan Next Visit Focus/Plan Next Note Type Treatment Note Next Visit Plan Continue to advance L shoulder ROM and strengthening program as tolerated, initiate balance program.
--- NOTE | 2018-08-12 09:43 | PT.OTN ---
Current Diagnoses Pain in left shoulder (08/12/18) Physical Therapy Treatment Note PT-OP-A Visit Information Start: 07/22/18 13:01 Freq: Status: Active Protocol: Document 08/12/18 08:55 EA (Rec: 08/12/18 09:02 EA [id number]) Out-Patient Physical Therapy Visit Information Visit Information Visit Type Treatment Note Visit Start Time 08:15 Visit Stop Time 09:01 Visit Number 6/ Number of VICE PRESIDENT COMPLIANCE Visits 3 PT-OP-B Current Condition Start: 07/22/18 13:01 Freq: Status: Active Protocol: Document 07/22/18 12:00 HH (Rec: 07/22/18 13:49 HH [email or web address]) Current Condition History of Current Condition Onset Date 07/22/18 Current Complaints L shoulder pain post fall History of Current Condition Pt is a 82yo pleasant female who presents to clinic with L shoulder pain since 07/10/18 after a fall. Pt fell on the street during negotiating a curb who landed on her L side of the face and L shoulder. Pt was admitted to the ER at with negative findings on X- ray for L shoulder fx. Pt c/o L shoulder pain 02/02 since then. Pain gets worse during mobility and functional activities such as OH movements from using a chair post machine operator, donning her clothers, lifting boxes and cooking. Pt does report her symptoms and pain has been getting better over the past 3 weeks and starts to regain part of ROM but not so much for the strength. Pt currently cannot participate her gym class at [employer] due to her shoulder pain. Prior Treatments and Tests Pt received PT for her stroke 10 years ago Treatment Goals Patient/Caregiver Goals expects to reach PLOF in pain free such as using chair post machine operator, cooking, doning her clothes and lifting boxes; to participate her gym class at [employer] 3x/week; return to walking 3miles /day Prior Functional Status Baseline Function- ADL's Independent Baseline Function- Mobility Independent Current Functional Impairments (Reported) Functional Limitations- ADL's Pain during OH movements and lifting who requires her 's help when needed Functional Limitations- Mobility/Gait Pain during OH movements and lifting who requires her 's help when needed PT-OP-C Subjective Start: 07/22/18 13:01 Freq: Status: Active Protocol: Document 08/12/18 08:55 EA (Rec: 08/12/18 09:02 EA [id number]) OP-PT Subjective Patient Comments Patient Comments Pt reports pain increased with shoulder overhead movements and feels limited shoulder rotation. Pt would like to focus on shoulder therapy instead of balance as she believes her balance is okay. PT-OP-F Manual Assessment Start: 07/22/18 13:01 Freq: Status: Active Protocol: Document 07/22/18 12:00 HH (Rec: 07/22/18 13:49 HH [email or web address]) Manual Assessments Soft Tissue Assessment Soft Tissue Mobility Assessment significant tenderness at L UE and Pec major and minor Joint Mobility Assessment Joint Mobility Assessment hypomobile at L scapula upward and downward rotation PT-OP-K Range of Motion Start: 07/22/18 13:01 Freq: Status: Active Protocol: Document 07/22/18 12:00 HH (Rec: 07/22/18 13:49 [email or web address]) Shoulder Goniometric Range of Motion Shoulder Measured in Degrees Right Active Shoulder ROM WFL Yes Testing Position Sitting Flexion 170 Extension 50 Abduction 170 External Rotation at 90 degrees 80 Abduction Internal Rotation 80 Left Active Shoulder ROM WFL No Testing Position Sitting Flexion 160 Extension 30 Abduction 145 External Rotation at 90 degrees 50 Abduction Internal Rotation 80 PT-OP-L Special Tests Start: 07/22/18 13:01 Freq: Status: Active Protocol: Document 07/22/18 12:00 HH (Rec: 07/22/18 13:49 [email or web address]) Special Tests Shoulder Special Tests painful arc Test Results +ve Comments most painful at 90 abduction Elevation Impingement Test Results +ve Comments most painful at 90 abduction concentrically and eccentrically Drop Arm Rotator Cuff Test Results -ve Passive ER Rotator Cuff Test Results +ve Comments pain reproduced at ER 50 degrees PT-OP-M Strength Start: 07/22/18 13:01 Freq: Status: Active Protocol: Document 07/22/18 12:00 HH (Rec: 07/22/18 13:49 [email or web address]) Shoulder Strength Shoulder Manual Muscle Testing Right Flexion 4+ Good+ Extension 4+ Good+ Abduction (C5) 4+ Good+ External Rotation 4+ Good+ Internal Rotation 4+ Good+ Left Flexion 3+ Fair+ Extension 4- Good- Abduction (C5) 3+ Fair+ External Rotation 3 Fair Internal Rotation 4- Good- PT-OP-Q Treatments Start: 07/22/18 13:01 Freq: Status: Active Protocol: Document 08/12/18 08:55 EA (Rec: 08/12/18 09:02 EA [id number]) Cardio Equipment Upper Body Ergometer (UBE) Duration (Minutes) 6 RPM 60 Seat Position 11 Height 3.5 Other fwd & back Therapeutic Exercises Supine Exercises wand ER 45 deg Supine Exercise Name ER Side left Equipment Used cane Reps/Minutes 15 wand PROM and AAROM Supine Exercise Name cane Side left Equipment Used cane Reps/Minutes 15 Sidelying Exercises 1 Sidelying Exercise Name ER Side left Reps/Minutes x 15 reps Manual Therapy Treatment Soft Tissue Mobilization UT and pec Body Location INFRA/SUPRA tendon and muscle Mobilization Type Cross-Friction Myofascial Release Intensity/Depth Moderate Body Position Supine Joint Mobilizations 1 Joint GH Direction distraction w/passive abd & flex, post glides sustained PT-OP-R Modalities Start: 07/22/18 13:01 Freq: Status: Active Protocol: Document 08/12/18 08:55 EA (Rec: 08/12/18 09:02 EA [id number]) Electric Stimulation Electric Stimulation Interferential Current (IFC) Body Location left post and lateral shoulder Duration (Minutes) 15 Intensity 12 Patient Position Sidelying Combined With Heat/Cold Hot Pack PT-OP-T Assessment and Plan Start: 07/22/18 13:01 Freq: Status: Active Protocol: Document 08/12/18 08:55 EA (Rec: 08/12/18 09:02 EA [id number]) Physical Therapy Assessment Assessment Summary Assessment Tolerated treatment but with pain to ER and ABD. Noted decreased ER ROM and pain with active abduction. Recommends to perform ER stretch at home. Physical Therapy Plan Next Visit Focus/Plan Next Note Type Treatment Note Next Visit Plan Increase ER range and strength to improve shoulder joint mechanics.
--- NOTE | 2018-08-17 09:45 | PT.OTN ---
Current Diagnoses Pain in left shoulder (08/17/18) Physical Therapy Treatment Note PT-OP-A Visit Information Start: 07/22/18 13:01 Freq: Status: Active Protocol: Document 08/17/18 09:06 [facility] (Rec: 08/17/18 09:45 [facility] [id number]) Out-Patient Physical Therapy Visit Information Visit Information Visit Type Treatment Note Visit Start Time 09:00 Visit Stop Time 09:55 Total Visit Minutes 55 Visit Number 02/02 Number of LEVEL VIAL SETTER Visits 0 PT-OP-B Current Condition Start: 07/22/18 13:01 Freq: Status: Active Protocol: Document 07/22/18 12:00 HH (Rec: 07/22/18 13:49 [email or web address]) Current Condition History of Current Condition Onset Date 07/22/18 Current Complaints L shoulder pain post fall History of Current Condition Pt is a 82yo pleasant female who presents to clinic with L shoulder pain since 07/10/18 after a fall. Pt fell on the street during negotiating a curb who landed on her L side of the face and L shoulder. Pt was admitted to the ER at with negative findings on X- ray for L shoulder fx. Pt c/o L shoulder pain 02/02 since then. Pain gets worse during mobility and functional activities such as OH movements from using a vice chairman, donning her clothers, lifting boxes and cooking. Pt does report her symptoms and pain has been getting better over the past 3 weeks and starts to regain part of ROM but not so much for the strength. Pt currently cannot participate her gym class at [employer]. due to her shoulder pain. Prior Treatments and Tests Pt received PT for her stroke 10 years ago Treatment Goals Patient/Caregiver Goals expects to reach PLOF in pain free such as using vice chairman, cooking, doning her clothes and lifting boxes; to participate her gym class at [employer]. 3x/week; return to walking 3miles /day Prior Functional Status Baseline Function- ADL's Independent Baseline Function- Mobility Independent Current Functional Impairments (Reported) Functional Limitations- ADL's Pain during OH movements and lifting who requires her 's help when needed Functional Limitations- Mobility/Gait Pain during OH movements and lifting who requires her 's help when needed PT-OP-C Subjective Start: 07/22/18 13:01 Freq: Status: Active Protocol: Document 08/17/18 09:06 [facility] (Rec: 08/17/18 09:45 [facility] [id number]) OP-PT Subjective Patient Comments Patient Comments Pt reports she felt great after last session. Pt reports she has been able to get her hair up by herself. PT-OP-F Manual Assessment Start: 07/22/18 13:01 Freq: Status: Active Protocol: Document 07/22/18 12:00 HH (Rec: 07/22/18 13:49 [email or web address]) Manual Assessments Soft Tissue Assessment Soft Tissue Mobility Assessment significant tenderness at L UE and Pec major and minor Joint Mobility Assessment Joint Mobility Assessment hypomobile at L scapula upward and downward rotation PT-OP-K Range of Motion Start: 07/22/18 13:01 Freq: Status: Active Protocol: Document 07/22/18 12:00 HH (Rec: 07/22/18 13:49 [email or web address]) Shoulder Goniometric Range of Motion Shoulder Measured in Degrees Right Active Shoulder ROM WFL Yes Testing Position Sitting Flexion 170 Extension 50 Abduction 170 External Rotation at 90 degrees 80 Abduction Internal Rotation 80 Left Active Shoulder ROM WFL No Testing Position Sitting Flexion 160 Extension 30 Abduction 145 External Rotation at 90 degrees 50 Abduction Internal Rotation 80 PT-OP-L Special Tests Start: 07/22/18 13:01 Freq: Status: Active Protocol: Document 07/22/18 12:00 HH (Rec: 07/22/18 13:49 [email or web address]) Special Tests Shoulder Special Tests painful arc Test Results +ve Comments most painful at 90 abduction Elevation Impingement Test Results +ve Comments most painful at 90 abduction concentrically and eccentrically Drop Arm Rotator Cuff Test Results -ve Passive ER Rotator Cuff Test Results +ve Comments pain reproduced at ER 50 degrees PT-OP-M Strength Start: 07/22/18 13:01 Freq: Status: Active Protocol: Document 07/22/18 12:00 HH (Rec: 07/22/18 13:49 [email or web address]) Shoulder Strength Shoulder Manual Muscle Testing Right Flexion 4+ Good+ Extension 4+ Good+ Abduction (C5) 4+ Good+ External Rotation 4+ Good+ Internal Rotation 4+ Good+ Left Flexion 3+ Fair+ Extension 4- Good- Abduction (C5) 3+ Fair+ External Rotation 3 Fair Internal Rotation 4- Good- PT-OP-Q Treatments Start: 07/22/18 13:01 Freq: Status: Active Protocol: Document 08/17/18 09:06 [facility] (Rec: 08/17/18 09:45 [facility] [id number]) Cardio Equipment Upper Body Ergometer (UBE) Duration (Minutes) 6 RPM 60 Seat Position 11 Height 3.5 Other fwd & back Therapeutic Exercises Supine Exercises wand ER 45 deg Supine Exercise Name ER Side left Equipment Used cane Reps/Minutes 15 wand PROM and AAROM Supine Exercise Name cane Side left Equipment Used cane Reps/Minutes 15 Comments ER at side & abd Sidelying Exercises abd Sidelying Exercise Name w/bent elbow Side left Reps/Minutes 8 1 Sidelying Exercise Name ER Side left Reps/Minutes x 15 reps Manual Therapy Treatment Soft Tissue Mobilization UT and pec Body Location Ut, LS, pec Mobilization Type Cross-Friction Myofascial Release Intensity/Depth Moderate Body Position Supine 2 Body Location infa/supraspinatus tendon/mm Mobilization Type Rolling Intensity/Depth Moderate Joint Mobilizations 1 Joint GH Direction distraction w/passive abd & flex, post glides sustained PT-OP-R Modalities Start: 07/22/18 13:01 Freq: Status: Active Protocol: Document 08/17/18 09:06 [facility] (Rec: 08/17/18 09:45 [facility] [id number]) Electric Stimulation Electric Stimulation Interferential Current (IFC) Body Location left post and lateral shoulder Duration (Minutes) 15 Intensity 12 Patient Position Supine Combined With Heat/Cold Hot Pack PT-OP-T Assessment and Plan Start: 07/22/18 13:01 Freq: Status: Active Protocol: Document 08/17/18 09:06 [facility] (Rec: 08/17/18 09:45 [facility] [id number]) Physical Therapy Assessment Assessment Summary Assessment Pt had improved PROM without pain with treatment. She is improvign with active range but still has most difficulty with ER, flex & abd over 90 deg Physical Therapy Plan Frequency and Duration Frequency of Treatment 2x/Week Duration of Treatment 8 weeks Plan of Care Start Date 07/22/18 Plan of Care End Date 09/15/18 Next Visit Focus/Plan Next Note Type Treatment Note Next Visit Plan Cont to work on increasing ROM
--- NOTE | 2018-08-20 16:44 | PT.OTN ---
Current Diagnoses Pain in left shoulder (08/20/18) Physical Therapy Treatment Note PT-OP-A Visit Information Start: 07/22/18 13:01 Freq: Status: Active Protocol: Document 08/20/18 09:45 AMB (Rec: 08/20/18 09:52 AMB [id number]) Out-Patient Physical Therapy Visit Information Visit Information Visit Type Treatment Note Visit Start Time 09:00 Visit Stop Time 09:55 Total Visit Minutes 55 Visit Number 8/10 Number of ELECTRONIC SYSTEM ENGINEER Visits 0 PT-OP-B Current Condition Start: 07/22/18 13:01 Freq: Status: Active Protocol: Document 07/22/18 12:00 HH (Rec: 07/22/18 13:49 HH [email or web address]) Current Condition History of Current Condition Onset Date 07/22/18 Current Complaints L shoulder pain post fall History of Current Condition Pt is a 82yo pleasant female who presents to clinic with L shoulder pain since 07/10/18 after a fall. Pt fell on the street during negotiating a curb who landed on her L side of the face and L shoulder. Pt was admitted to the ER at with negative findings on X- ray for L shoulder fx. Pt c/o L shoulder pain 02/02 since then. Pain gets worse during mobility and functional activities such as OH movements from using a fine hairer, donning her clothers, lifting boxes and cooking. Pt does report her symptoms and pain has been getting better over the past 3 weeks and starts to regain part of ROM but not so much for the strength. Pt currently cannot participate her gym class at [employer] due to her shoulder pain. Prior Treatments and Tests Pt received PT for her stroke 10 years ago Treatment Goals Patient/Caregiver Goals expects to reach PLOF in pain free such as using fine hairer, cooking, doning her clothes and lifting boxes; to participate her gym class at [employer] 3x/week; return to walking 3miles /day Prior Functional Status Baseline Function- ADL's Independent Baseline Function- Mobility Independent Current Functional Impairments (Reported) Functional Limitations- ADL's Pain during OH movements and lifting who requires her 's help when needed Functional Limitations- Mobility/Gait Pain during OH movements and lifting who requires her 's help when needed PT-OP-C Subjective Start: 07/22/18 13:01 Freq: Status: Active Protocol: Document 08/20/18 09:45 AMB (Rec: 08/20/18 09:52 AMB [id number]) OP-PT Subjective Patient Comments Patient Comments Pt repots she was sore after last visit, but the next day afterward she felt improvement . PT-OP-F Manual Assessment Start: 07/22/18 13:01 Freq: Status: Active Protocol: Document 07/22/18 12:00 HH (Rec: 07/22/18 13:49 [email or web address]) Manual Assessments Soft Tissue Assessment Soft Tissue Mobility Assessment significant tenderness at L UE and Pec major and minor Joint Mobility Assessment Joint Mobility Assessment hypomobile at L scapula upward and downward rotation PT-OP-K Range of Motion Start: 07/22/18 13:01 Freq: Status: Active Protocol: Document 07/22/18 12:00 HH (Rec: 07/22/18 13:49 [email or web address]) Shoulder Goniometric Range of Motion Shoulder Measured in Degrees Right Active Shoulder ROM WFL Yes Testing Position Sitting Flexion 170 Extension 50 Abduction 170 External Rotation at 90 degrees 80 Abduction Internal Rotation 80 Left Active Shoulder ROM WFL No Testing Position Sitting Flexion 160 Extension 30 Abduction 145 External Rotation at 90 degrees 50 Abduction Internal Rotation 80 PT-OP-L Special Tests Start: 07/22/18 13:01 Freq: Status: Active Protocol: Document 07/22/18 12:00 HH (Rec: 07/22/18 13:49 [email or web address]) Special Tests Shoulder Special Tests painful arc Test Results +ve Comments most painful at 90 abduction Elevation Impingement Test Results +ve Comments most painful at 90 abduction concentrically and eccentrically Drop Arm Rotator Cuff Test Results -ve Passive ER Rotator Cuff Test Results +ve Comments pain reproduced at ER 50 degrees PT-OP-M Strength Start: 07/22/18 13:01 Freq: Status: Active Protocol: Document 07/22/18 12:00 HH (Rec: 07/22/18 13:49 [email or web address]) Shoulder Strength Shoulder Manual Muscle Testing Right Flexion 4+ Good+ Extension 4+ Good+ Abduction (C5) 4+ Good+ External Rotation 4+ Good+ Internal Rotation 4+ Good+ Left Flexion 3+ Fair+ Extension 4- Good- Abduction (C5) 3+ Fair+ External Rotation 3 Fair Internal Rotation 4- Good- PT-OP-Q Treatments Start: 07/22/18 13:01 Freq: Status: Active Protocol: Document 08/20/18 09:45 AMB (Rec: 08/20/18 10:39 AMB [id number]) Cardio Equipment Upper Body Ergometer (UBE) Duration (Minutes) 6 RPM 60 Seat Position 11 Height 3.5 Other fwd & back Therapeutic Exercises Supine Exercises 2 Supine Exercise Name scap protract Reps/Minutes x10 Comments at 90 deg flexion wand ER 45 deg Supine Exercise Name ER Side left Equipment Used cane Reps/Minutes 15 supine L GH flexion Side left Reps/Minutes 2 mins wand PROM and AAROM Supine Exercise Name cane Side left Equipment Used cane Reps/Minutes 15 Comments ER at side & abd Sidelying Exercises abd Sidelying Exercise Name w/bent elbow Side left Reps/Minutes 8 1 Sidelying Exercise Name ER Side left Reps/Minutes x 15 reps Sitting Exercises scapular roll Sitting Exercise Name retraction, protraction Side bilateral Reps/Minutes 2 min Manual Therapy Treatment Soft Tissue Mobilization UT and pec Body Location Ut, LS, pec Mobilization Type Cross-Friction Myofascial Release Intensity/Depth Moderate Body Position Supine 2 Body Location infa/supraspinatus tendon/mm Mobilization Type Rolling Intensity/Depth Moderate PT-OP-R Modalities Start: 07/22/18 13:01 Freq: Status: Active Protocol: Document 08/20/18 09:45 AMB (Rec: 08/20/18 16:44 AMB [email or web address]) Electric Stimulation Electric Stimulation Interferential Current (IFC) Body Location left post and lateral shoulder Duration (Minutes) 15 Intensity 12 Patient Position Supine Combined With Heat/Cold Hot Pack PT-OP-T Assessment and Plan Start: 07/22/18 13:01 Freq: Status: Active Protocol: Document 08/20/18 09:45 AMB (Rec: 08/20/18 16:42 AMB [email or web address]) Physical Therapy Assessment Assessment Summary Assessment Pt with pain with 90 degrees of abduction actively, but flexion and internal rotation are improving. Pt hoping to work on balance once shoulder is feeling better. Physical Therapy Plan Next Visit Focus/Plan Next Note Type Treatment Note Next Visit Plan Cont to work on increasing ROM / active strength
--- NOTE | 2018-08-24 12:14 | PT.OTN ---
Current Diagnoses Pain in left shoulder (08/24/18) Physical Therapy Treatment Note PT-OP-A Visit Information Start: 07/22/18 13:01 Freq: Status: Active Protocol: Document 08/24/18 09:45 HH (Rec: 08/24/18 12:14 HH [email or web address]) Out-Patient Physical Therapy Visit Information Visit Information Visit Type Treatment Note Visit Start Time 09:45 Visit Stop Time 10:30 Total Visit Minutes 45 Visit Number 9/10 Number of CABLE REPAIRER Visits 0 PT-OP-B Current Condition Start: 07/22/18 13:01 Freq: Status: Active Protocol: Document 07/22/18 12:00 HH (Rec: 07/22/18 13:49 HH [email or web address]) Current Condition History of Current Condition Onset Date 07/22/18 Current Complaints L shoulder pain post fall History of Current Condition Pt is a 82yo pleasant female who presents to clinic with L shoulder pain since 07/10/18 after a fall. Pt fell on the street during negotiating a curb who landed on her L side of the face and L shoulder. Pt was admitted to the ER at with negative findings on X- ray for L shoulder fx. Pt c/o L shoulder pain 02/02 since then. Pain gets worse during mobility and functional activities such as OH movements from using a [employer] chair, donning her clothers, lifting boxes and cooking. Pt does report her symptoms and pain has been getting better over the past 3 weeks and starts to regain part of ROM but not so much for the strength. Pt currently cannot participate her gym class at [employer] due to her shoulder pain. Prior Treatments and Tests Pt received PT for her stroke 10 years ago Treatment Goals Patient/Caregiver Goals expects to reach PLOF in pain free such as using criminal justice [employer] chair, cooking, doning her clothes and lifting boxes; to participate her gym class at [employer] 3x/week; return to walking 3miles /day Prior Functional Status Baseline Function- ADL's Independent Baseline Function- Mobility Independent Current Functional Impairments (Reported) Functional Limitations- ADL's Pain during OH movements and lifting who requires her 's help when needed Functional Limitations- Mobility/Gait Pain during OH movements and lifting who requires her 's help when needed PT-OP-C Subjective Start: 07/22/18 13:01 Freq: Status: Active Protocol: Document 08/24/18 09:45 HH (Rec: 08/24/18 12:14 [email or web address]) OP-PT Subjective Patient Comments Patient Comments pt states now she has 4 to 5 good days during the week and she will take it easy on HEP if it's a bad day. Pt currently can reach behind her head and pin her hair. She also states it's easier to don her clothes with L arm first. Patient Reported Progress Improving PT-OP-F Manual Assessment Start: 07/22/18 13:01 Freq: Status: Active Protocol: Document 07/22/18 12:00 HH (Rec: 07/22/18 13:49 [email or web address]) Manual Assessments Soft Tissue Assessment Soft Tissue Mobility Assessment significant tenderness at L UE and Pec major and minor Joint Mobility Assessment Joint Mobility Assessment hypomobile at L scapula upward and downward rotation PT-OP-K Range of Motion Start: 07/22/18 13:01 Freq: Status: Active Protocol: Document 07/22/18 12:00 HH (Rec: 07/22/18 13:49 [email or web address]) Shoulder Goniometric Range of Motion Shoulder Measured in Degrees Right Active Shoulder ROM WFL Yes Testing Position Sitting Flexion 170 Extension 50 Abduction 170 External Rotation at 90 degrees 80 Abduction Internal Rotation 80 Left Active Shoulder ROM WFL No Testing Position Sitting Flexion 160 Extension 30 Abduction 145 External Rotation at 90 degrees 50 Abduction Internal Rotation 80 PT-OP-L Special Tests Start: 07/22/18 13:01 Freq: Status: Active Protocol: Document 07/22/18 12:00 HH (Rec: 07/22/18 13:49 [email or web address]) Special Tests Shoulder Special Tests painful arc Test Results +ve Comments most painful at 90 abduction Elevation Impingement Test Results +ve Comments most painful at 90 abduction concentrically and eccentrically Drop Arm Rotator Cuff Test Results -ve Passive ER Rotator Cuff Test Results +ve Comments pain reproduced at ER 50 degrees PT-OP-M Strength Start: 07/22/18 13:01 Freq: Status: Active Protocol: Document 07/22/18 12:00 HH (Rec: 07/22/18 13:49 [email or web address]) Shoulder Strength Shoulder Manual Muscle Testing Right Flexion 4+ Good+ Extension 4+ Good+ Abduction (C5) 4+ Good+ External Rotation 4+ Good+ Internal Rotation 4+ Good+ Left Flexion 3+ Fair+ Extension 4- Good- Abduction (C5) 3+ Fair+ External Rotation 3 Fair Internal Rotation 4- Good- PT-OP-Q Treatments Start: 07/22/18 13:01 Freq: Status: Active Protocol: Document 08/24/18 09:45 HH (Rec: 08/24/18 12:14 HH [email or web address]) Therapeutic Exercises Supine Exercises T spine ext Equipment Used towel Comments with B UE flexion Sidelying Exercises open book Reps/Minutes 10 Comments before painful range reach behind her back with scap retraction and depression Side left Reps/Minutes 10 Comments pocket reach abd Sidelying Exercise Name with extended elbow Side left Reps/Minutes 8 Comments before painful range Sitting Exercises scap retraction Comments with pocket reach Manual Therapy Treatment Soft Tissue Mobilization UT and pec Body Location Ut, LS, pec Mobilization Type Cross-Friction Myofascial Release Intensity/Depth Moderate Body Position Supine 2 Body Location infa/supraspinatus tendon/mm Mobilization Type Rolling Intensity/Depth Moderate Joint Mobilizations scap UR and DR Comments Upward rotation and down rotation 1 Joint GH Direction distraction w/passive abd & flex, post glides sustained PT-OP-R Modalities Start: 07/22/18 13:01 Freq: Status: Active Protocol: Document 08/20/18 09:45 AMB (Rec: 08/20/18 16:44 AMB [email or web address]) Electric Stimulation Electric Stimulation Interferential Current (IFC) Body Location left post and lateral shoulder Duration (Minutes) 15 Intensity 12 Patient Position Supine Combined With Heat/Cold Hot Pack PT-OP-T Assessment and Plan Start: 07/22/18 13:01 Freq: Status: Active Protocol: Document 08/24/18 09:45 HH (Rec: 08/24/18 12:14 HH [email or web address]) Physical Therapy Assessment Assessment Summary Assessment Introduced scap retraction during reaching behind her head or back for donning clothes and pinning her hair. New HEP with SL abduction and open book before painful range . Pt cont to show improvements in ER, IR and Abd ROM with reduced pain. Physical Therapy Plan Next Visit Focus/Plan Next Note Type Progress Note Next Visit Plan Cont to work on increasing ROM / active strength Neuromuscular training on scap retraction with IR work on thoracic mobility
--- NOTE | 2018-08-27 11:29 | PT.OTN ---
Current Diagnoses Pain in left shoulder (08/27/18) Physical Therapy Treatment Note PT-OP-A Visit Information Start: 07/22/18 13:01 Freq: Status: Active Protocol: Document 08/27/18 11:15 SA (Rec: 08/27/18 11:28 SA [email or web address]) Out-Patient Physical Therapy Visit Information Visit Information Visit Type Treatment Note Visit Start Time 08:45 Visit Stop Time 09:02 Total Visit Minutes 47 Visit Number 10 Number of MANAGER FASHION Visits 1 PT-OP-B Current Condition Start: 07/22/18 13:01 Freq: Status: Active Protocol: Document 07/22/18 12:00 HH (Rec: 07/22/18 13:49 HH [email or web address]) Current Condition History of Current Condition Onset Date 07/22/18 Current Complaints L shoulder pain post fall History of Current Condition Pt is a 82yo pleasant female who presents to clinic with L shoulder pain since 07/10/18 after a fall. Pt fell on the street during negotiating a curb who landed on her L side of the face and L shoulder. Pt was admitted to the ER at with negative findings on X- ray for L shoulder fx. Pt c/o L shoulder pain 02/02 since then. Pain gets worse during mobility and functional activities such as OH movements from using a instructor hairspring, donning her clothers, lifting boxes and cooking. Pt does report her symptoms and pain has been getting better over the past 3 weeks and starts to regain part of ROM but not so much for the strength. Pt currently cannot participate her gym class at [employer] due to her shoulder pain. Prior Treatments and Tests Pt received PT for her stroke 10 years ago Treatment Goals Patient/Caregiver Goals expects to reach PLOF in pain free such as using instructor hairspring, cooking, doning her clothes and lifting boxes; to participate her gym class at [employer] 3x/week; return to walking 3miles /day Prior Functional Status Baseline Function- ADL's Independent Baseline Function- Mobility Independent Current Functional Impairments (Reported) Functional Limitations- ADL's Pain during OH movements and lifting who requires her 's help when needed Functional Limitations- Mobility/Gait Pain during OH movements and lifting who requires her 's help when needed PT-OP-C Subjective Start: 07/22/18 13:01 Freq: Status: Active Protocol: Document 08/27/18 11:15 SA (Rec: 08/27/18 11:28 SA [email or web address]) OP-PT Subjective Patient Comments Patient Comments Pt reports feeling like her ROM is getting better but she still feels weak. Is happy to report that she can pin her hair up and fasten her bra by herself. PT-OP-F Manual Assessment Start: 07/22/18 13:01 Freq: Status: Active Protocol: Document 07/22/18 12:00 HH (Rec: 07/22/18 13:49 [email or web address]) Manual Assessments Soft Tissue Assessment Soft Tissue Mobility Assessment significant tenderness at L UE and Pec major and minor Joint Mobility Assessment Joint Mobility Assessment hypomobile at L scapula upward and downward rotation PT-OP-K Range of Motion Start: 07/22/18 13:01 Freq: Status: Active Protocol: Document 07/22/18 12:00 HH (Rec: 07/22/18 13:49 [email or web address]) Shoulder Goniometric Range of Motion Shoulder Measured in Degrees Right Active Shoulder ROM WFL Yes Testing Position Sitting Flexion 170 Extension 50 Abduction 170 External Rotation at 90 degrees 80 Abduction Internal Rotation 80 Left Active Shoulder ROM WFL No Testing Position Sitting Flexion 160 Extension 30 Abduction 145 External Rotation at 90 degrees 50 Abduction Internal Rotation 80 PT-OP-L Special Tests Start: 07/22/18 13:01 Freq: Status: Active Protocol: Document 07/22/18 12:00 HH (Rec: 07/22/18 13:49 [email or web address]) Special Tests Shoulder Special Tests painful arc Test Results +ve Comments most painful at 90 abduction Elevation Impingement Test Results +ve Comments most painful at 90 abduction concentrically and eccentrically Drop Arm Rotator Cuff Test Results -ve Passive ER Rotator Cuff Test Results +ve Comments pain reproduced at ER 50 degrees PT-OP-M Strength Start: 07/22/18 13:01 Freq: Status: Active Protocol: Document 07/22/18 12:00 HH (Rec: 07/22/18 13:49 [email or web address]) Shoulder Strength Shoulder Manual Muscle Testing Right Flexion 4+ Good+ Extension 4+ Good+ Abduction (C5) 4+ Good+ External Rotation 4+ Good+ Internal Rotation 4+ Good+ Left Flexion 3+ Fair+ Extension 4- Good- Abduction (C5) 3+ Fair+ External Rotation 3 Fair Internal Rotation 4- Good- PT-OP-Q Treatments Start: 07/22/18 13:01 Freq: Status: Active Protocol: Document 08/27/18 11:15 SA (Rec: 08/27/18 11:28 [email or web address]) Cardio Equipment Upper Body Ergometer (UBE) Duration (Minutes) 6 RPM 70 Seat Position 11 Height 3.5 Other fwd & back Therapeutic Exercises Supine Exercises wand PROM and AAROM Supine Exercise Name cane Side left Equipment Used cane Reps/Minutes 15 Comments ER at side & abd Sidelying Exercises open book Reps/Minutes 15 Comments before painful range reach behind her back with scap retraction and depression Side left Reps/Minutes 12 Comments pocket reach abd Sidelying Exercise Name with extended elbow Side left Reps/Minutes 10 Comments before painful range Sitting Exercises scapular roll Sitting Exercise Name retraction, protraction Side bilateral Reps/Minutes 2 min Manual Therapy Treatment Soft Tissue Mobilization UT and pec Body Location Ut, LS, pec Mobilization Type Cross-Friction Myofascial Release Intensity/Depth Moderate Body Position Supine Joint Mobilizations scap UR and DR Comments Upward rotation and down rotation 1 Joint GH Direction distraction w/passive abd & flex, post glides sustained PT-OP-R Modalities Start: 07/22/18 13:01 Freq: Status: Active Protocol: Document 08/27/18 11:29 SA (Rec: 08/27/18 11:29 [email or web address]) Electric Stimulation Electric Stimulation Interferential Current (IFC) Body Location left post and lateral shoulder Duration (Minutes) 15 Intensity 12 Patient Position Sidelying Combined With Heat/Cold Hot Pack PT-OP-T Assessment and Plan Start: 07/22/18 13:01 Freq: Status: Active Protocol: Document 08/27/18 11:15 SA (Rec: 08/27/18 11:28 [email or web address]) Physical Therapy Assessment Assessment Summary Assessment Pt progressing with shoulder ROM specifically IR, ER and ABD. Continued difficulty with active flexion, given wall slides for HEP with progression to AROM. Physical Therapy Plan Next Visit Focus/Plan Next Note Type Treatment Note Next Visit Plan Cont to work on increasing ROM / active strength Neuromuscular training on scap retraction with IR work on thoracic mobility
--- NOTE | 2018-09-10 08:16 | PT.OTN ---
Current Diagnoses Pain in left shoulder (09/10/18) Physical Therapy Treatment Note PT-OP-A Visit Information Start: 07/22/18 13:01 Freq: Status: Active Protocol: Document 08/27/18 11:15 SA (Rec: 08/27/18 11:28 SA [email or web address]) Out-Patient Physical Therapy Visit Information Visit Information Visit Type Progress Note Visit Start Time 08:45 Visit Stop Time 09:02 Total Visit Minutes 47 Visit Number 10 Number of REGROOVER Visits 1 PT-OP-B Current Condition Start: 07/22/18 13:01 Freq: Status: Active Protocol: Document 07/22/18 12:00 HH (Rec: 07/22/18 13:49 HH [email or web address]) Current Condition History of Current Condition Onset Date 07/22/18 Current Complaints L shoulder pain post fall History of Current Condition Pt is a 82yo pleasant female who presents to clinic with L shoulder pain since 07/10/18 after a fall. Pt fell on the street during negotiating a curb who landed on her L side of the face and L shoulder. Pt was admitted to the ER at with negative findings on X- ray for L shoulder fx. Pt c/o L shoulder pain 02/02 since then. Pain gets worse during mobility and functional activities such as OH movements from using a hair dresser, donning her clothers, lifting boxes and cooking. Pt does report her symptoms and pain has been getting better over the past 3 weeks and starts to regain part of ROM but not so much for the strength. Pt currently cannot participate her gym class at [employer] due to her shoulder pain. Prior Treatments and Tests Pt received PT for her stroke 10 years ago Treatment Goals Patient/Caregiver Goals expects to reach PLOF in pain free such as using hair dresser, cooking, doning her clothes and lifting boxes; to participate her gym class at [employer] 3x/week; return to walking 3miles /day Prior Functional Status Baseline Function- ADL's Independent Baseline Function- Mobility Independent Current Functional Impairments (Reported) Functional Limitations- ADL's Pain during OH movements and lifting who requires her 's help when needed Functional Limitations- Mobility/Gait Pain during OH movements and lifting who requires her 's help when needed PT-OP-C Subjective Start: 07/22/18 13:01 Freq: Status: Active Protocol: Document 08/27/18 11:15 SA (Rec: 08/27/18 11:28 SA [email or web address]) OP-PT Subjective Patient Comments Patient Comments Pt reports feeling like her ROM is getting better but she still feels weak. Is happy to report that she can pin her hair up and fasten her bra by herself. PT-OP-F Manual Assessment Start: 07/22/18 13:01 Freq: Status: Active Protocol: Document 07/22/18 12:00 HH (Rec: 07/22/18 13:49 [email or web address]) Manual Assessments Soft Tissue Assessment Soft Tissue Mobility Assessment significant tenderness at L UE and Pec major and minor Joint Mobility Assessment Joint Mobility Assessment hypomobile at L scapula upward and downward rotation PT-OP-K Range of Motion Start: 07/22/18 13:01 Freq: Status: Active Protocol: Document 07/22/18 12:00 HH (Rec: 07/22/18 13:49 [email or web address]) Shoulder Goniometric Range of Motion Shoulder Measured in Degrees Right Active Shoulder ROM WFL Yes Testing Position Sitting Flexion 170 Extension 50 Abduction 170 External Rotation at 90 degrees 80 Abduction Internal Rotation 80 Left Active Shoulder ROM WFL No Testing Position Sitting Flexion 160 Extension 30 Abduction 145 External Rotation at 90 degrees 50 Abduction Internal Rotation 80 PT-OP-L Special Tests Start: 07/22/18 13:01 Freq: Status: Active Protocol: Document 07/22/18 12:00 HH (Rec: 07/22/18 13:49 [email or web address]) Special Tests Shoulder Special Tests painful arc Test Results +ve Comments most painful at 90 abduction Elevation Impingement Test Results +ve Comments most painful at 90 abduction concentrically and eccentrically Drop Arm Rotator Cuff Test Results -ve Passive ER Rotator Cuff Test Results +ve Comments pain reproduced at ER 50 degrees PT-OP-M Strength Start: 07/22/18 13:01 Freq: Status: Active Protocol: Document 07/22/18 12:00 HH (Rec: 07/22/18 13:49 [email or web address]) Shoulder Strength Shoulder Manual Muscle Testing Right Flexion 4+ Good+ Extension 4+ Good+ Abduction (C5) 4+ Good+ External Rotation 4+ Good+ Internal Rotation 4+ Good+ Left Flexion 3+ Fair+ Extension 4- Good- Abduction (C5) 3+ Fair+ External Rotation 3 Fair Internal Rotation 4- Good- PT-OP-Q Treatments Start: 07/22/18 13:01 Freq: Status: Active Protocol: Document 08/27/18 11:15 SA (Rec: 08/27/18 11:28 [email or web address]) Cardio Equipment Upper Body Ergometer (UBE) Duration (Minutes) 6 RPM 70 Seat Position 11 Height 3.5 Other fwd & back Therapeutic Exercises Supine Exercises wand PROM and AAROM Supine Exercise Name cane Side left Equipment Used cane Reps/Minutes 15 Comments ER at side & abd Sidelying Exercises open book Reps/Minutes 15 Comments before painful range reach behind her back with scap retraction and depression Side left Reps/Minutes 12 Comments pocket reach abd Sidelying Exercise Name with extended elbow Side left Reps/Minutes 10 Comments before painful range Sitting Exercises scapular roll Sitting Exercise Name retraction, protraction Side bilateral Reps/Minutes 2 min Manual Therapy Treatment Soft Tissue Mobilization UT and pec Body Location Ut, LS, pec Mobilization Type Cross-Friction Myofascial Release Intensity/Depth Moderate Body Position Supine Joint Mobilizations scap UR and DR Comments Upward rotation and down rotation 1 Joint GH Direction distraction w/passive abd & flex, post glides sustained PT-OP-R Modalities Start: 07/22/18 13:01 Freq: Status: Active Protocol: Document 08/27/18 11:29 SA (Rec: 08/27/18 11:29 [email or web address]) Electric Stimulation Electric Stimulation Interferential Current (IFC) Body Location left post and lateral shoulder Duration (Minutes) 15 Intensity 12 Patient Position Sidelying Combined With Heat/Cold Hot Pack PT-OP-T Assessment and Plan Start: 07/22/18 13:01 Freq: Status: Active Protocol: Document 08/27/18 11:15 SA (Rec: 08/27/18 11:28 [email or web address]) Physical Therapy Assessment Progress Towards Goals Progress Towards Goals Progressing Toward Goals Progress Comments Pt reports she is able to perform overhead ADLs of dressing and doing her hair with limited discomfort. She is still unable to attend her exercise classes 2x/wk d/t feeling like she is slowing the class down when she cannot do some of the strengthening with LUE. Assessment Summary Assessment Pt progressing with shoulder pain stating her pain is mostly non-existant except with prolonged OH activity and occasionally with ABD. Strength is still limited especially IR, ER, ABD and Flexion. Physical Therapy Plan Next Visit Focus/Plan Next Note Type Treatment Note Next Visit Plan Cont to work on increasing ROM / active strength Neuromuscular training on scap retraction with IR work on thoracic mobility
--- NOTE | 2018-09-10 08:22 | PT.OTN ---
Current Diagnoses Pain in left shoulder (09/10/18) Physical Therapy Treatment Note PT-OP-A Visit Information Start: 07/22/18 13:01 Freq: Status: Active Protocol: Document 08/27/18 11:15 SA (Rec: 08/27/18 11:28 SA [email or web address]) Out-Patient Physical Therapy Visit Information Visit Information Visit Type Progress Note Visit Start Time 08:45 Visit Stop Time 09:02 Total Visit Minutes 47 Visit Number 10 Number of REACH TRUCK OPERATOR Visits 1 PT-OP-B Current Condition Start: 07/22/18 13:01 Freq: Status: Active Protocol: Document 07/22/18 12:00 HH (Rec: 07/22/18 13:49 HH [email or web address]) Current Condition History of Current Condition Onset Date 07/22/18 Current Complaints L shoulder pain post fall History of Current Condition Pt is a 82yo pleasant female who presents to clinic with L shoulder pain since 07/10/18 after a fall. Pt fell on the street during negotiating a curb who landed on her L side of the face and L shoulder. Pt was admitted to the ER at with negative findings on X- ray for L shoulder fx. Pt c/o L shoulder pain 02/02 since then. Pain gets worse during mobility and functional activities such as OH movements from using a chair upholsterer, donning her clothers, lifting boxes and cooking. Pt does report her symptoms and pain has been getting better over the past 3 weeks and starts to regain part of ROM but not so much for the strength. Pt currently cannot participate her gym class at [employer] due to her shoulder pain. Prior Treatments and Tests Pt received PT for her stroke 10 years ago Treatment Goals Patient/Caregiver Goals expects to reach PLOF in pain free such as using chair upholsterer, cooking, doning her clothes and lifting boxes; to participate her gym class at [employer] 3x/week; return to walking 3miles /day Prior Functional Status Baseline Function- ADL's Independent Baseline Function- Mobility Independent Current Functional Impairments (Reported) Functional Limitations- ADL's Pain during OH movements and lifting who requires her 's help when needed Functional Limitations- Mobility/Gait Pain during OH movements and lifting who requires her 's help when needed PT-OP-C Subjective Start: 07/22/18 13:01 Freq: Status: Active Protocol: Document 08/27/18 11:15 SA (Rec: 08/27/18 11:28 SA [email or web address]) OP-PT Subjective Patient Comments Patient Comments Pt reports feeling like her ROM is getting better but she still feels weak. Is happy to report that she can pin her hair up and fasten her bra by herself. PT-OP-F Manual Assessment Start: 07/22/18 13:01 Freq: Status: Active Protocol: Document 07/22/18 12:00 HH (Rec: 07/22/18 13:49 [email or web address]) Manual Assessments Soft Tissue Assessment Soft Tissue Mobility Assessment significant tenderness at L UE and Pec major and minor Joint Mobility Assessment Joint Mobility Assessment hypomobile at L scapula upward and downward rotation PT-OP-K Range of Motion Start: 07/22/18 13:01 Freq: Status: Active Protocol: Document 07/22/18 12:00 HH (Rec: 07/22/18 13:49 [email or web address]) Shoulder Goniometric Range of Motion Shoulder Measured in Degrees Right Active Shoulder ROM WFL Yes Testing Position Sitting Flexion 170 Extension 50 Abduction 170 External Rotation at 90 degrees 80 Abduction Internal Rotation 80 Left Active Shoulder ROM WFL No Testing Position Sitting Flexion 160 Extension 30 Abduction 145 External Rotation at 90 degrees 50 Abduction Internal Rotation 80 PT-OP-L Special Tests Start: 07/22/18 13:01 Freq: Status: Active Protocol: Document 07/22/18 12:00 HH (Rec: 07/22/18 13:49 [email or web address]) Special Tests Shoulder Special Tests painful arc Test Results +ve Comments most painful at 90 abduction Elevation Impingement Test Results +ve Comments most painful at 90 abduction concentrically and eccentrically Drop Arm Rotator Cuff Test Results -ve Passive ER Rotator Cuff Test Results +ve Comments pain reproduced at ER 50 degrees PT-OP-M Strength Start: 07/22/18 13:01 Freq: Status: Active Protocol: Document 07/22/18 12:00 HH (Rec: 07/22/18 13:49 [email or web address]) Shoulder Strength Shoulder Manual Muscle Testing Right Flexion 4+ Good+ Extension 4+ Good+ Abduction (C5) 4+ Good+ External Rotation 4+ Good+ Internal Rotation 4+ Good+ Left Flexion 3+ Fair+ Extension 4- Good- Abduction (C5) 3+ Fair+ External Rotation 3 Fair Internal Rotation 4- Good- PT-OP-Q Treatments Start: 07/22/18 13:01 Freq: Status: Active Protocol: Document 08/27/18 11:15 SA (Rec: 08/27/18 11:28 [email or web address]) Cardio Equipment Upper Body Ergometer (UBE) Duration (Minutes) 6 RPM 70 Seat Position 11 Height 3.5 Other fwd & back Therapeutic Exercises Supine Exercises wand PROM and AAROM Supine Exercise Name cane Side left Equipment Used cane Reps/Minutes 15 Comments ER at side & abd Sidelying Exercises open book Reps/Minutes 15 Comments before painful range reach behind her back with scap retraction and depression Side left Reps/Minutes 12 Comments pocket reach abd Sidelying Exercise Name with extended elbow Side left Reps/Minutes 10 Comments before painful range Sitting Exercises scapular roll Sitting Exercise Name retraction, protraction Side bilateral Reps/Minutes 2 min Manual Therapy Treatment Soft Tissue Mobilization UT and pec Body Location Ut, LS, pec Mobilization Type Cross-Friction Myofascial Release Intensity/Depth Moderate Body Position Supine Joint Mobilizations scap UR and DR Comments Upward rotation and down rotation 1 Joint GH Direction distraction w/passive abd & flex, post glides sustained PT-OP-R Modalities Start: 07/22/18 13:01 Freq: Status: Active Protocol: Document 08/27/18 11:29 SA (Rec: 08/27/18 11:29 [email or web address]) Electric Stimulation Electric Stimulation Interferential Current (IFC) Body Location left post and lateral shoulder Duration (Minutes) 15 Intensity 12 Patient Position Sidelying Combined With Heat/Cold Hot Pack PT-OP-T Assessment and Plan Start: 07/22/18 13:01 Freq: Status: Active Protocol: Document 08/27/18 11:15 SA (Rec: 08/27/18 11:28 [email or web address]) Physical Therapy Assessment Progress Towards Goals Progress Towards Goals Progressing Toward Goals Progress Comments Pt reports she is able to perform overhead ADLs of dressing and doing her hair with limited discomfort. She is still unable to attend her exercise classes 2x/wk d/t feeling like she is slowing the class down when she cannot do some of the strengthening with LUE. Assessment Summary Assessment Pt progressing with shoulder pain stating her pain is mostly non-existant except with prolonged OH activity and occasionally with ABD. Strength is still limited especially IR, ER, ABD and Flexion. Physical Therapy Plan Next Visit Focus/Plan Next Note Type Treatment Note Next Visit Plan Continue to work on increasing ROM/ active strength Neuromuscular training on scap retraction with IR work on thoracic mobility.
--- NOTE | 2018-09-10 08:34 | PT.OTN ---
Current Diagnoses Pain in left shoulder (09/10/18) Physical Therapy Treatment Note PT-OP-A Visit Information Start: 07/22/18 13:01 Freq: Status: Active Protocol: Document 09/10/18 08:25 SA (Rec: 09/10/18 08:34 SA [email or web address]) Out-Patient Physical Therapy Visit Information Visit Information Visit Type Treatment Note Visit Start Time 07:30 Visit Stop Time 08:16 Total Visit Minutes 46 Visit Number 1 Number of APPLICATION PENETRATION TESTER Visits 1 PT-OP-B Current Condition Start: 07/22/18 13:01 Freq: Status: Active Protocol: Document 07/22/18 12:00 HH (Rec: 07/22/18 13:49 HH [email or web address]) Current Condition History of Current Condition Onset Date 07/22/18 Current Complaints L shoulder pain post fall History of Current Condition Pt is a 82yo pleasant female who presents to clinic with L shoulder pain since 07/10/18 after a fall. Pt fell on the street during negotiating a curb who landed on her L side of the face and L shoulder. Pt was admitted to the ER at with negative findings on X- ray for L shoulder fx. Pt c/o L shoulder pain 02/02 since then. Pain gets worse during mobility and functional activities such as OH movements from using a dental chairside assistant, donning her clothers, lifting boxes and cooking. Pt does report her symptoms and pain has been getting better over the past 3 weeks and starts to regain part of ROM but not so much for the strength. Pt currently cannot participate her gym class at [employer] due to her shoulder pain. Prior Treatments and Tests Pt received PT for her stroke 10 years ago Treatment Goals Patient/Caregiver Goals expects to reach PLOF in pain free such as using dental chairside assistant, cooking, doning her clothes and lifting boxes; to participate her gym class at [employer] 3x/week; return to walking 3miles /day Prior Functional Status Baseline Function- ADL's Independent Baseline Function- Mobility Independent Current Functional Impairments (Reported) Functional Limitations- ADL's Pain during OH movements and lifting who requires her 's help when needed Functional Limitations- Mobility/Gait Pain during OH movements and lifting who requires her 's help when needed PT-OP-C Subjective Start: 07/22/18 13:01 Freq: Status: Active Protocol: Document 09/10/18 08:25 SA (Rec: 09/10/18 08:34 SA [email or web address]) OP-PT Subjective Patient Comments Patient Comments Pt reports having the Flu this last week and eing out of commision, he sholuder has been mostly pain free but she has not been doing much activity. PT-OP-F Manual Assessment Start: 07/22/18 13:01 Freq: Status: Active Protocol: Document 07/22/18 12:00 HH (Rec: 07/22/18 13:49 [email or web address]) Manual Assessments Soft Tissue Assessment Soft Tissue Mobility Assessment significant tenderness at L UE and Pec major and minor Joint Mobility Assessment Joint Mobility Assessment hypomobile at L scapula upward and downward rotation PT-OP-K Range of Motion Start: 07/22/18 13:01 Freq: Status: Active Protocol: Document 07/22/18 12:00 HH (Rec: 07/22/18 13:49 [email or web address]) Shoulder Goniometric Range of Motion Shoulder Measured in Degrees Right Active Shoulder ROM WFL Yes Testing Position Sitting Flexion 170 Extension 50 Abduction 170 External Rotation at 90 degrees 80 Abduction Internal Rotation 80 Left Active Shoulder ROM WFL No Testing Position Sitting Flexion 160 Extension 30 Abduction 145 External Rotation at 90 degrees 50 Abduction Internal Rotation 80 PT-OP-L Special Tests Start: 07/22/18 13:01 Freq: Status: Active Protocol: Document 07/22/18 12:00 HH (Rec: 07/22/18 13:49 [email or web address]) Special Tests Shoulder Special Tests painful arc Test Results +ve Comments most painful at 90 abduction Elevation Impingement Test Results +ve Comments most painful at 90 abduction concentrically and eccentrically Drop Arm Rotator Cuff Test Results -ve Passive ER Rotator Cuff Test Results +ve Comments pain reproduced at ER 50 degrees PT-OP-M Strength Start: 07/22/18 13:01 Freq: Status: Active Protocol: Document 07/22/18 12:00 HH (Rec: 07/22/18 13:49 [email or web address]) Shoulder Strength Shoulder Manual Muscle Testing Right Flexion 4+ Good+ Extension 4+ Good+ Abduction (C5) 4+ Good+ External Rotation 4+ Good+ Internal Rotation 4+ Good+ Left Flexion 3+ Fair+ Extension 4- Good- Abduction (C5) 3+ Fair+ External Rotation 3 Fair Internal Rotation 4- Good- PT-OP-Q Treatments Start: 07/22/18 13:01 Freq: Status: Active Protocol: Document 09/10/18 08:25 SA (Rec: 09/10/18 08:34 [email or web address]) Cardio Equipment Upper Body Ergometer (UBE) Duration (Minutes) 6 RPM 75 Seat Position 11 Height 3.5 Other fwd & back Therapeutic Exercises Supine Exercises wand ER 45 deg Supine Exercise Name ER Side left Equipment Used cane Reps/Minutes 15 supine L GH flexion Side left Resistance wand with 1# cuff Reps/Minutes 2 min wand PROM and AAROM Supine Exercise Name cane Side left Equipment Used cane Reps/Minutes 15 Comments ER at side & abd Sidelying Exercises open book Reps/Minutes 20 Comments before painful range reach behind her back with scap retraction and depression Side left Reps/Minutes 15 Comments pocket reach Sitting Exercises scapular roll Sitting Exercise Name retraction, protraction Side bilateral Reps/Minutes 2 min Manual Therapy Treatment Soft Tissue Mobilization UT and pec Body Location Ut, LS, pec Mobilization Type Cross-Friction Myofascial Release Intensity/Depth Moderate Body Position Supine Joint Mobilizations 1 Joint GH Direction distraction w/passive abd & flex, post glides sustained PT-OP-R Modalities Start: 07/22/18 13:01 Freq: Status: Active Protocol: Document 09/10/18 08:25 (Rec: 09/10/18 08:34 [email or web address]) Electric Stimulation Electric Stimulation Interferential Current (IFC) Body Location left post and lateral shoulder Duration (Minutes) 15 Intensity 12 Patient Position Sidelying Combined With Heat/Cold Hot Pack PT-OP-T Assessment and Plan Start: 07/22/18 13:01 Freq: Status: Active Protocol: Document 09/10/18 08:25 (Rec: 09/10/18 08:34 [email or web address]) Physical Therapy Assessment Assessment Summary Assessment Pt continues to progress despite recent illness, reports decreased pain but continues to demonstrate weakness with OH activity and IRR/ER and Abduction. Physical Therapy Plan Next Visit Focus/Plan Next Note Type Treatment Note Next Visit Plan Continue to work on increasing ROM/ active strength Neuromuscular training on scap retraction with IR work on thoracic mobility.
--- NOTE | 2018-09-15 16:35 | PT.OTN ---
Current Diagnoses Pain in left shoulder (09/15/18) Unsteadiness on feet (09/15/18) Physical Therapy Treatment Note PT-OP-A Visit Information Start: 07/22/18 13:01 Freq: Status: Active Protocol: Document 09/15/18 07:30 AMB (Rec: 09/15/18 16:01 AMB [email or web address]) Out-Patient Physical Therapy Visit Information Visit Information Visit Type Progress Note Visit Note 09/05 Visit Start Time 07:30 Visit Stop Time 08:15 Total Visit Minutes 45 Visit Number 12 Number of OUTDOOR ADVENTURE GUIDES Visits 0 PT-OP-B Current Condition Start: 07/22/18 13:01 Freq: Status: Active Protocol: Document 07/22/18 12:00 HH (Rec: 07/22/18 13:49 HH [email or web address]) Current Condition History of Current Condition Onset Date 07/22/18 Current Complaints L shoulder pain post fall History of Current Condition Pt is a 82yo pleasant female who presents to clinic with L shoulder pain since 07/10/18 after a fall. Pt fell on the street during negotiating a curb who landed on her L side of the face and L shoulder. Pt was admitted to the ER at with negative findings on X- ray for L shoulder fx. Pt c/o L shoulder pain 02/02 since then. Pain gets worse during mobility and functional activities such as OH movements from using a chair pad maker, donning her clothers, lifting boxes and cooking. Pt does report her symptoms and pain has been getting better over the past 3 weeks and starts to regain part of ROM but not so much for the strength. Pt currently cannot participate her gym class at [employer] due to her shoulder pain. Prior Treatments and Tests Pt received PT for her stroke 10 years ago Treatment Goals Patient/Caregiver Goals expects to reach PLOF in pain free such as using chair pad maker, cooking, doning her clothes and lifting boxes; to participate her gym class at [employer] 3x/week; return to walking 3miles /day Prior Functional Status Baseline Function- ADL's Independent Baseline Function- Mobility Independent Current Functional Impairments (Reported) Functional Limitations- ADL's Pain during OH movements and lifting who requires her 's help when needed Functional Limitations- Mobility/Gait Pain during OH movements and lifting who requires her 's help when needed PT-OP-C Subjective Start: 07/22/18 13:01 Freq: Status: Active Protocol: Document 09/15/18 07:30 AMB (Rec: 09/15/18 16:01 AMB [email or web address]) OP-PT Subjective Patient Comments Patient Comments Pt overall feels her shoulder is improving. Continued pain with overhead motions, and continues to feel that long standing weakness in that arm is contributing. She is concerned about her balance and gait and does have a prescription for that. PT-OP-E Functional Tests Start: 07/22/18 13:01 Freq: Status: Active Protocol: Document 09/15/18 07:30 AMB (Rec: 09/15/18 16:34 AMB [email or web address]) Functional Tests Dynamic Gait Index (DGI) Score 21 DGI Impairment Rating 1 to <20% Impaired (Score 20- 23) PT-OP-F Manual Assessment Start: 07/22/18 13:01 Freq: Status: Active Protocol: Document 07/22/18 12:00 HH (Rec: 07/22/18 13:49 HH [email or web address]) Manual Assessments Soft Tissue Assessment Soft Tissue Mobility Assessment significant tenderness at L UE and Pec major and minor Joint Mobility Assessment Joint Mobility Assessment hypomobile at L scapula upward and downward rotation PT-OP-K Range of Motion Start: 07/22/18 13:01 Freq: Status: Active Protocol: Document 09/15/18 07:49 AMB (Rec: 09/15/18 07:55 AMB [id number]) Shoulder Goniometric Range of Motion Shoulder Measured in Degrees Left Active Flexion 155 Extension 70 Abduction 155 PT-OP-L Special Tests Start: 07/22/18 13:01 Freq: Status: Active Protocol: Document 07/22/18 12:00 HH (Rec: 07/22/18 13:49 HH [email or web address]) Special Tests Shoulder Special Tests painful arc Test Results +ve Comments most painful at 90 abduction Elevation Impingement Test Results +ve Comments most painful at 90 abduction concentrically and eccentrically Drop Arm Rotator Cuff Test Results -ve Passive ER Rotator Cuff Test Results +ve Comments pain reproduced at ER 50 degrees PT-OP-M Strength Start: 07/22/18 13:01 Freq: Status: Active Protocol: Document 09/15/18 07:49 AMB (Rec: 09/15/18 07:55 AMB [id number]) Shoulder Strength Shoulder Manual Muscle Testing Left Flexion 3+ Fair+ Extension 4 Good Abduction (C5) 3+ Fair+ External Rotation 3 Fair Internal Rotation 4- Good- PT-OP-Q Treatments Start: 07/22/18 13:01 Freq: Status: Active Protocol: Document 09/15/18 07:30 AMB (Rec: 09/15/18 16:34 AMB [email or web address]) Cardio Equipment Upper Body Ergometer (UBE) Duration (Minutes) 6 RPM 75 Seat Position 11 Height 3.5 Other fwd & back Therapeutic Exercises Supine Exercises wand PROM and AAROM Supine Exercise Name cane Side left Equipment Used cane Reps/Minutes 15 Comments ER at side & abd Sitting Exercises scapular roll Sitting Exercise Name retraction, protraction Side bilateral Reps/Minutes 2 min Standing Exercises shoulder EXT Resistance #2 t band Comments 2x10 Other Exercises Hurdles step overs Comments x5 Neuro Re-Education Treatment Balance Activities 1 Details DGI Comments - slight veering with head turns PT-OP-R Modalities Start: 07/22/18 13:01 Freq: Status: Active Protocol: Document 09/10/18 08:25 SA (Rec: 09/10/18 08:34 SA [email or web address]) Electric Stimulation Electric Stimulation Interferential Current (IFC) Body Location left post and lateral shoulder Duration (Minutes) 15 Intensity 12 Patient Position Sidelying Combined With Heat/Cold Hot Pack PT-OP-T Assessment and Plan Start: 07/22/18 13:01 Freq: Status: Active Protocol: Document 09/15/18 07:30 AMB (Rec: 09/15/18 16:34 AMB [email or web address]) Physical Therapy Assessment Assessment Summary Assessment Viky has improved in her active range of motion, but remains weak in abduction and external rotation. She also has a prescription for unsteady gait, so we will add that in to her treatment. She has had two falls in the last 6 months and her DGI score of 21/24 is just shy of the safe ambulator category, so she will benefit from gait and balance training as well. Physical Therapy Plan Frequency and Duration Frequency of Treatment 2x/Week Duration of Treatment 8 weeks Plan of Care Start Date 09/15/18 Plan of Care End Date 11/10/18 Therapeutic Interventions Therapeutic Interventions Balance Training Gait Training Home Exercise Program Joint Mobilizations Manual Therapy Neuromuscular Re-education Self-Care/Home Management Soft Tissue Mobilization Taping Therapeutic Activities Therapeutic Exercises Modalities Cold Pack/Ice Massage Electric Stimulation Next Visit Focus/Plan Next Note Type Treatment Note Next Visit Plan Continue to work on increasing ROM/ active strength. Can add in balance gait training as tolerated.
--- NOTE | 2018-09-15 16:35 | PT.OPPOC ---
Current Diagnoses Pain in left shoulder (09/15/18) Unsteadiness on feet (09/15/18) Provider Visit Care Team Role Provider Type Viky MD Dawn Attending Provider Physician Family Provider Primary Care Provider Specialty: Family Practice Address: [address] [place] [address], [phone] Email: Plan Of Care PT-OP-T Assessment and Plan Start: 07/22/18 13:01 Freq: Status: Active Protocol: Document 09/15/18 07:30 AMB (Rec: 09/15/18 16:34 AMB [email or web address]) Physical Therapy Assessment Assessment Summary Assessment Viky has improved in her active range of motion, but remains weak in abduction and external rotation. She also has a prescription for unsteady gait, so we will add that in to her treatment. She has had two falls in the last 6 months and her DGI score of 21/24 is just shy of the safe ambulator category, so she will benefit from gait and balance training as well. Physical Therapy Plan Frequency and Duration Frequency of Treatment 2x/Week Duration of Treatment 8 weeks Plan of Care Start Date 09/15/18 Plan of Care End Date 11/10/18 Therapeutic Interventions Therapeutic Interventions Balance Training Gait Training Home Exercise Program Joint Mobilizations Manual Therapy Neuromuscular Re-education Self-Care/Home Management Soft Tissue Mobilization Taping Therapeutic Activities Therapeutic Exercises Modalities Cold Pack/Ice Massage Electric Stimulation Next Visit Focus/Plan Next Note Type Treatment Note Next Visit Plan Continue to work on increasing ROM/ active strength. Can add in balance gait training as tolerated. Plan of Care Dates Plan of Care Start Date 09/15/18 Plan of Care End Date 11/10/18 Please Sign and Return: I have reviewed this Plan of Care and certify that the skilled therapy services above are required to meet the patient?s needs. Physician Signature Date Printed Name and Credentials Clinical Instructor Signature Printed Name and Credentials
--- NOTE | 2018-09-21 12:13 | PT.OTN ---
Current Diagnoses Pain in left shoulder (09/21/18) Physical Therapy Treatment Note PT-OP-A Visit Information Start: 07/22/18 13:01 Freq: Status: Active Protocol: Document 09/21/18 08:15 AMB (Rec: 09/21/18 08:24 AMB [id number]) Out-Patient Physical Therapy Visit Information Visit Information Visit Type Treatment Note Visit Start Time 08:15 Visit Stop Time 09:00 Visit Number 13 PT-OP-B Current Condition Start: 07/22/18 13:01 Freq: Status: Active Protocol: Document 07/22/18 12:00 HH (Rec: 07/22/18 13:49 HH [email or web address]) Current Condition History of Current Condition Onset Date 07/22/18 Current Complaints L shoulder pain post fall History of Current Condition Pt is a 82yo pleasant female who presents to clinic with L shoulder pain since 07/10/18 after a fall. Pt fell on the street during negotiating a curb who landed on her L side of the face and L shoulder. Pt was admitted to the ER at with negative findings on X- ray for L shoulder fx. Pt c/o L shoulder pain 02/02 since then. Pain gets worse during mobility and functional activities such as OH movements from using a hairspring setter, donning her clothers, lifting boxes and cooking. Pt does report her symptoms and pain has been getting better over the past 3 weeks and starts to regain part of ROM but not so much for the strength. Pt currently cannot participate her gym class at [employer] due to her shoulder pain. Prior Treatments and Tests Pt received PT for her stroke 10 years ago Treatment Goals Patient/Caregiver Goals expects to reach PLOF in pain free such as using hairspring setter, cooking, doning her clothes and lifting boxes; to participate her gym class at [employer] 3x/week; return to walking 3miles /day Prior Functional Status Baseline Function- ADL's Independent Baseline Function- Mobility Independent Current Functional Impairments (Reported) Functional Limitations- ADL's Pain during OH movements and lifting who requires her 's help when needed Functional Limitations- Mobility/Gait Pain during OH movements and lifting who requires her 's help when needed PT-OP-C Subjective Start: 07/22/18 13:01 Freq: Status: Active Protocol: Document 09/21/18 08:15 AMB (Rec: 09/21/18 08:24 AMB [id number]) OP-PT Subjective Patient Comments Patient Comments The patient reports yesterday was more painful. PT-OP-E Functional Tests Start: 07/22/18 13:01 Freq: Status: Active Protocol: Document 09/15/18 07:30 AMB (Rec: 09/15/18 16:34 AMB [email or web address]) Functional Tests Dynamic Gait Index (DGI) Score 21 DGI Impairment Rating 1 to <20% Impaired (Score 20- 23) PT-OP-F Manual Assessment Start: 07/22/18 13:01 Freq: Status: Active Protocol: Document 07/22/18 12:00 HH (Rec: 07/22/18 13:49 HH [email or web address]) Manual Assessments Soft Tissue Assessment Soft Tissue Mobility Assessment significant tenderness at L UE and Pec major and minor Joint Mobility Assessment Joint Mobility Assessment hypomobile at L scapula upward and downward rotation PT-OP-K Range of Motion Start: 07/22/18 13:01 Freq: Status: Active Protocol: Document 09/15/18 07:49 AMB (Rec: 09/15/18 07:55 AMB [id number]) Shoulder Goniometric Range of Motion Shoulder Measured in Degrees Left Active Flexion 155 Extension 70 Abduction 155 PT-OP-L Special Tests Start: 07/22/18 13:01 Freq: Status: Active Protocol: Document 07/22/18 12:00 HH (Rec: 07/22/18 13:49 HH [email or web address]) Special Tests Shoulder Special Tests painful arc Test Results +ve Comments most painful at 90 abduction Elevation Impingement Test Results +ve Comments most painful at 90 abduction concentrically and eccentrically Drop Arm Rotator Cuff Test Results -ve Passive ER Rotator Cuff Test Results +ve Comments pain reproduced at ER 50 degrees PT-OP-M Strength Start: 07/22/18 13:01 Freq: Status: Active Protocol: Document 09/15/18 07:49 AMB (Rec: 09/15/18 07:55 AMB [id number]) Shoulder Strength Shoulder Manual Muscle Testing Left Flexion 3+ Fair+ Extension 4 Good Abduction (C5) 3+ Fair+ External Rotation 3 Fair Internal Rotation 4- Good- PT-OP-Q Treatments Start: 07/22/18 13:01 Freq: Status: Active Protocol: Document 09/21/18 08:15 AMB (Rec: 09/21/18 09:09 AMB [id number]) Cardio Equipment Upper Body Ergometer (UBE) Duration (Minutes) 6 RPM 75 Seat Position 11 Height 3.5 Other fwd & back Gym Equipment Shuttle Balance 2 Details blue Comments WBOS: a/p with alternating shoulder flexion, m/l Therapeutic Exercises Sidelying Exercises open book Reps/Minutes 20 Comments before painful range Sitting Exercises scapular roll Sitting Exercise Name retraction, protraction Side bilateral Reps/Minutes 2 min Standing Exercises 3 Standing Exercise Name rows Resistance #2 Reps/Minutes 2x10 shoulder EXT Resistance #2 t band Comments 2x10 2 Standing Exercise Name sidestepping squats Reps/Minutes 10 1 Standing Exercise Name bicep curl Resistance #2 Reps/Minutes 2x10 Manual Therapy Treatment Manual Techniques 1 Type PROM Comments flex, abd, IR, ER Neuro Re-Education Treatment Balance Activities 2 Details forward lunges Reps/Duration 2x10 PT-OP-R Modalities Start: 07/22/18 13:01 Freq: Status: Active Protocol: Document 09/10/18 08:25 SA (Rec: 09/10/18 08:34 SA [email or web address]) Electric Stimulation Electric Stimulation Interferential Current (IFC) Body Location left post and lateral shoulder Duration (Minutes) 15 Intensity 12 Patient Position Sidelying Combined With Heat/Cold Hot Pack PT-OP-T Assessment and Plan Start: 07/22/18 13:01 Freq: Status: Active Protocol: Document 09/21/18 08:15 AMB (Rec: 09/21/18 09:03 AMB [email or web address]) Physical Therapy Assessment Assessment Summary Assessment Viky has been going back to her balance strength class at the [facility]. She had difficulty with the forward lunges. Physical Therapy Plan Next Visit Focus/Plan Next Note Type Treatment Note Next Visit Plan Continue to work on increasing ROM/ active strength. Can add in balance gait training as tolerated.
--- NOTE | 2018-09-23 09:23 | PT.OTN ---
Current Diagnoses Pain in left shoulder (09/23/18) Physical Therapy Treatment Note PT-OP-A Visit Information Start: 07/22/18 13:01 Freq: Status: Active Protocol: Document 09/23/18 08:15 AMB (Rec: 09/23/18 08:35 AMB [id number]) Out-Patient Physical Therapy Visit Information Visit Information Visit Type Treatment Note Visit Start Time 08:15 Visit Stop Time 09:00 Visit Number 14 PT-OP-B Current Condition Start: 07/22/18 13:01 Freq: Status: Active Protocol: Document 07/22/18 12:00 HH (Rec: 07/22/18 13:49 HH [email or web address]) Current Condition History of Current Condition Onset Date 07/22/18 Current Complaints L shoulder pain post fall History of Current Condition Pt is a 82yo pleasant female who presents to clinic with L shoulder pain since 07/10/18 after a fall. Pt fell on the street during negotiating a curb who landed on her L side of the face and L shoulder. Pt was admitted to the ER at with negative findings on X- ray for L shoulder fx. Pt c/o L shoulder pain 02/02 since then. Pain gets worse during mobility and functional activities such as OH movements from using a chairman ceo, donning her clothers, lifting boxes and cooking. Pt does report her symptoms and pain has been getting better over the past 3 weeks and starts to regain part of ROM but not so much for the strength. Pt currently cannot participate her gym class at [employer] due to her shoulder pain. Prior Treatments and Tests Pt received PT for her stroke 10 years ago Treatment Goals Patient/Caregiver Goals expects to reach PLOF in pain free such as using chairman ceo, cooking, doning her clothes and lifting boxes; to participate her gym class at [employer] 3x/week; return to walking 3miles /day Prior Functional Status Baseline Function- ADL's Independent Baseline Function- Mobility Independent Current Functional Impairments (Reported) Functional Limitations- ADL's Pain during OH movements and lifting who requires her 's help when needed Functional Limitations- Mobility/Gait Pain during OH movements and lifting who requires her 's help when needed PT-OP-C Subjective Start: 07/22/18 13:01 Freq: Status: Active Protocol: Document 09/23/18 08:15 AMB (Rec: 09/23/18 08:35 AMB [id number]) OP-PT Subjective Patient Comments Patient Comments Pt reports arm has been feeling fine, went to the strength and balance class but is avoiding overhead movements. PT-OP-E Functional Tests Start: 07/22/18 13:01 Freq: Status: Active Protocol: Document 09/15/18 07:30 AMB (Rec: 09/15/18 16:34 AMB [email or web address]) Functional Tests Dynamic Gait Index (DGI) Score 21 DGI Impairment Rating 1 to <20% Impaired (Score 20- 23) PT-OP-F Manual Assessment Start: 07/22/18 13:01 Freq: Status: Active Protocol: Document 07/22/18 12:00 HH (Rec: 07/22/18 13:49 HH [email or web address]) Manual Assessments Soft Tissue Assessment Soft Tissue Mobility Assessment significant tenderness at L UE and Pec major and minor Joint Mobility Assessment Joint Mobility Assessment hypomobile at L scapula upward and downward rotation PT-OP-K Range of Motion Start: 07/22/18 13:01 Freq: Status: Active Protocol: Document 09/15/18 07:49 AMB (Rec: 09/15/18 07:55 AMB [id number]) Shoulder Goniometric Range of Motion Shoulder Measured in Degrees Left Active Flexion 155 Extension 70 Abduction 155 PT-OP-L Special Tests Start: 07/22/18 13:01 Freq: Status: Active Protocol: Document 07/22/18 12:00 HH (Rec: 07/22/18 13:49 HH [email or web address]) Special Tests Shoulder Special Tests painful arc Test Results +ve Comments most painful at 90 abduction Elevation Impingement Test Results +ve Comments most painful at 90 abduction concentrically and eccentrically Drop Arm Rotator Cuff Test Results -ve Passive ER Rotator Cuff Test Results +ve Comments pain reproduced at ER 50 degrees PT-OP-M Strength Start: 07/22/18 13:01 Freq: Status: Active Protocol: Document 09/15/18 07:49 AMB (Rec: 09/15/18 07:55 AMB [id number]) Shoulder Strength Shoulder Manual Muscle Testing Left Flexion 3+ Fair+ Extension 4 Good Abduction (C5) 3+ Fair+ External Rotation 3 Fair Internal Rotation 4- Good- PT-OP-Q Treatments Start: 07/22/18 13:01 Freq: Status: Active Protocol: Document 09/23/18 08:15 AMB (Rec: 09/23/18 09:23 AMB [id number]) Cardio Equipment Upper Body Ergometer (UBE) Duration (Minutes) 6 RPM 75 Seat Position 11 Height 3.5 Other fwd & back Therapeutic Exercises Sitting Exercises 2 Sitting Exercise Name AROM abd to 90 Comments with elbow bent to 90 scapular roll Sitting Exercise Name retraction, protraction Side bilateral Reps/Minutes 2 min 1 Sitting Exercise Name AROM flex to 90 Standing Exercises 4 Standing Exercise Name shoulder IR Resistance #1 Reps/Minutes 2x10 3 Standing Exercise Name rows Resistance #2 Reps/Minutes 2x10 shoulder EXT Resistance #2 t band Comments 2x10 1 Standing Exercise Name bicep curl Resistance #2 Reps/Minutes 2x10 Gait Training Gait Activity 1 Description walking with [employer] poles Level of Assistance SBA Comments adjusted height, educated in walking with reciprocal motion PT-OP-R Modalities Start: 07/22/18 13:01 Freq: Status: Active Protocol: Document 09/10/18 08:25 SA (Rec: 09/10/18 08:34 SA [email or web address]) Electric Stimulation Electric Stimulation Interferential Current (IFC) Body Location left post and lateral shoulder Duration (Minutes) 15 Intensity 12 Patient Position Sidelying Combined With Heat/Cold Hot Pack PT-OP-T Assessment and Plan Start: 07/22/18 13:01 Freq: Status: Active Protocol: Document 09/23/18 08:15 AMB (Rec: 09/23/18 09:23 AMB [id number]) Physical Therapy Assessment Assessment Summary Assessment Viky tolerated more AROM activities, but tends to compensate with upper trap with abduction activities. Physical Therapy Plan Next Visit Focus/Plan Next Note Type Treatment Note Next Visit Plan Continue to work on increasing ROM/ active strength. Can add in balance gait training as tolerated.
--- NOTE | 2018-09-28 11:44 | PT.OTN ---
Current Diagnoses Pain in left shoulder (09/28/18) Physical Therapy Treatment Note PT-OP-A Visit Information Start: 07/22/18 13:01 Freq: Status: Active Protocol: Document 09/28/18 09:00 GGD (Rec: 09/28/18 11:44 GGD [email or web address]) Out-Patient Physical Therapy Visit Information Visit Information Visit Type Treatment Note Visit Start Time 09:00 Visit Stop Time 09:42 Visit Number 15 Number of THIRD LOADER Visits 1 Evaluation Information Evaluation Date 07/22/18 PT-OP-B Current Condition Start: 07/22/18 13:01 Freq: Status: Active Protocol: Document 07/22/18 12:00 HH (Rec: 07/22/18 13:49 HH [email or web address]) Current Condition History of Current Condition Onset Date 07/22/18 Current Complaints L shoulder pain post fall History of Current Condition Pt is a 82yo pleasant female who presents to clinic with L shoulder pain since 07/10/18 after a fall. Pt fell on the street during negotiating a curb who landed on her L side of the face and L shoulder. Pt was admitted to the ER at with negative findings on X- ray for L shoulder fx. Pt c/o L shoulder pain 02/02 since then. Pain gets worse during mobility and functional activities such as OH movements from using a hairspring studder, donning her clothers, lifting boxes and cooking. Pt does report her symptoms and pain has been getting better over the past 3 weeks and starts to regain part of ROM but not so much for the strength. Pt currently cannot participate her gym class at [employer] due to her shoulder pain. Prior Treatments and Tests Pt received PT for her stroke 10 years ago Treatment Goals Patient/Caregiver Goals expects to reach PLOF in pain free such as using hairspring studder, cooking, doning her clothes and lifting boxes; to participate her gym class at [employer] 3x/week; return to walking 3miles /day Prior Functional Status Baseline Function- ADL's Independent Baseline Function- Mobility Independent Current Functional Impairments (Reported) Functional Limitations- ADL's Pain during OH movements and lifting who requires her 's help when needed Functional Limitations- Mobility/Gait Pain during OH movements and lifting who requires her 's help when needed PT-OP-C Subjective Start: 07/22/18 13:01 Freq: Status: Active Protocol: Document 09/28/18 09:00 GGD (Rec: 09/28/18 11:44 GGD [email or web address]) OP-PT Subjective Patient Comments Patient Comments Pt states she has pain if holding shoulder above head to much. PT-OP-E Functional Tests Start: 07/22/18 13:01 Freq: Status: Active Protocol: Document 09/15/18 07:30 AMB (Rec: 09/15/18 16:34 AMB [email or web address]) Functional Tests Dynamic Gait Index (DGI) Score 21 DGI Impairment Rating 1 to <20% Impaired (Score 20- 23) PT-OP-F Manual Assessment Start: 07/22/18 13:01 Freq: Status: Active Protocol: Document 07/22/18 12:00 HH (Rec: 07/22/18 13:49 HH [email or web address]) Manual Assessments Soft Tissue Assessment Soft Tissue Mobility Assessment significant tenderness at L UE and Pec major and minor Joint Mobility Assessment Joint Mobility Assessment hypomobile at L scapula upward and downward rotation PT-OP-K Range of Motion Start: 07/22/18 13:01 Freq: Status: Active Protocol: Document 09/15/18 07:49 AMB (Rec: 09/15/18 07:55 AMB [id number]) Shoulder Goniometric Range of Motion Shoulder Measured in Degrees Left Active Flexion 155 Extension 70 Abduction 155 PT-OP-L Special Tests Start: 07/22/18 13:01 Freq: Status: Active Protocol: Document 07/22/18 12:00 HH (Rec: 07/22/18 13:49 HH [email or web address]) Special Tests Shoulder Special Tests painful arc Test Results +ve Comments most painful at 90 abduction Elevation Impingement Test Results +ve Comments most painful at 90 abduction concentrically and eccentrically Drop Arm Rotator Cuff Test Results -ve Passive ER Rotator Cuff Test Results +ve Comments pain reproduced at ER 50 degrees PT-OP-M Strength Start: 07/22/18 13:01 Freq: Status: Active Protocol: Document 09/15/18 07:49 AMB (Rec: 09/15/18 07:55 AMB [id number]) Shoulder Strength Shoulder Manual Muscle Testing Left Flexion 3+ Fair+ Extension 4 Good Abduction (C5) 3+ Fair+ External Rotation 3 Fair Internal Rotation 4- Good- PT-OP-Q Treatments Start: 07/22/18 13:01 Freq: Status: Active Protocol: Document 09/28/18 09:00 GGD (Rec: 09/28/18 11:44 GGD [email or web address]) Cardio Equipment Upper Body Ergometer (UBE) Duration (Minutes) 6 RPM 75 Seat Position 11 Height 3.5 Other fwd & back Gym Equipment Shuttle Balance 2 Details red Comments WBOS: a/p with alternating shoulder flexion, m/l Therapeutic Exercises Sitting Exercises 2 Sitting Exercise Name AROM abd to 90 Comments with elbow bent to 90 scapular roll Sitting Exercise Name retraction, protraction Side bilateral Reps/Minutes 2 min 1 Sitting Exercise Name AROM flex to 90 Standing Exercises 4 Standing Exercise Name shoulder IR Resistance #1 Reps/Minutes 2x10 3 Standing Exercise Name rows Resistance #2 Reps/Minutes 2x10 shoulder EXT Resistance #2 t band Comments 2x10 1 Standing Exercise Name bicep curl Resistance #2 Reps/Minutes 2x10 Other Exercises Hurdles step overs Other Exercise Name with and without balance pads. Comments x5 Gait Training Gait Activity 1 Description walking with ScratchJring poles Level of Assistance SBA Comments adjusted height, educated in walking with reciprical motion Neuro Re-Education Treatment Balance Activities 2 Details forward lunges Reps/Duration 2x10 PT-OP-R Modalities Start: 07/22/18 13:01 Freq: Status: Active Protocol: Document 09/10/18 08:25 SA (Rec: 09/10/18 08:34 SA [email or web address]) Electric Stimulation Electric Stimulation Interferential Current (IFC) Body Location left post and lateral shoulder Duration (Minutes) 15 Intensity 12 Patient Position Sidelying Combined With Heat/Cold Hot Pack PT-OP-T Assessment and Plan Start: 07/22/18 13:01 Freq: Status: Active Protocol: Document 09/28/18 09:00 GGD (Rec: 09/28/18 11:44 GGD [email or web address]) Physical Therapy Assessment Assessment Summary Assessment Pt is improving with gait with pole. She is able do do more with less pain. She does elevate shoulder with shoulder flexion. Physical Therapy Plan Next Visit Focus/Plan Next Note Type Treatment Note Next Visit Plan Continue to work on increasing ROM/ active strength. Can add in balance gait training as tolerated.
--- NOTE | 2018-10-01 09:36 | PT.OTN ---
Current Diagnoses Pain in left shoulder (10/01/18) Physical Therapy Treatment Note PT-OP-A Visit Information Start: 07/22/18 13:01 Freq: Status: Active Protocol: Document 10/01/18 09:19 SA (Rec: 10/01/18 09:36 SA [email or web address]) Out-Patient Physical Therapy Visit Information Visit Information Visit Type Treatment Note Visit Start Time 07:30 Visit Stop Time 08:15 Visit Number 16 Number of CARBONIZER Visits 2 PT-OP-B Current Condition Start: 07/22/18 13:01 Freq: Status: Active Protocol: Document 07/22/18 12:00 HH (Rec: 07/22/18 13:49 [email or web address]) Current Condition History of Current Condition Onset Date 07/22/18 Current Complaints L shoulder pain post fall History of Current Condition Pt is a 82yo pleasant female who presents to clinic with L shoulder pain since 07/10/18 after a fall. Pt fell on the street during negotiating a curb who landed on her L side of the face and L shoulder. Pt was admitted to the ER at with negative findings on X- ray for L shoulder fx. Pt c/o L shoulder pain 02/02 since then. Pain gets worse during mobility and functional activities such as OH movements from using a dental chair assembler, donning her clothers, lifting boxes and cooking. Pt does report her symptoms and pain has been getting better over the past 3 weeks and starts to regain part of ROM but not so much for the strength. Pt currently cannot participate her gym class at [employer] due to her shoulder pain. Prior Treatments and Tests Pt received PT for her stroke 10 years ago Treatment Goals Patient/Caregiver Goals expects to reach PLOF in pain free such as using dental chair assembler, cooking, doning her clothes and lifting boxes; to participate her gym class at [employer] 3x/week; return to walking 3miles /day Prior Functional Status Baseline Function- ADL's Independent Baseline Function- Mobility Independent Current Functional Impairments (Reported) Functional Limitations- ADL's Pain during OH movements and lifting who requires her 's help when needed Functional Limitations- Mobility/Gait Pain during OH movements and lifting who requires her 's help when needed PT-OP-C Subjective Start: 07/22/18 13:01 Freq: Status: Active Protocol: Document 10/01/18 09:19 SA (Rec: 10/01/18 09:36 SA [email or web address]) OP-PT Subjective Patient Comments Patient Comments Pt reports shoulder feeling a little better today, had some pain while in bed early this AM but has no symptoms with overhead ADLs this AM. PT-OP-E Functional Tests Start: 07/22/18 13:01 Freq: Status: Active Protocol: Document 09/15/18 07:30 AMB (Rec: 09/15/18 16:34 AMB [email or web address]) Functional Tests Dynamic Gait Index (DGI) Score 21 DGI Impairment Rating 1 to <20% Impaired (Score 20- 23) PT-OP-F Manual Assessment Start: 07/22/18 13:01 Freq: Status: Active Protocol: Document 07/22/18 12:00 HH (Rec: 07/22/18 13:49 HH [email or web address]) Manual Assessments Soft Tissue Assessment Soft Tissue Mobility Assessment significant tenderness at L UE and Pec major and minor Joint Mobility Assessment Joint Mobility Assessment hypomobile at L scapula upward and downward rotation PT-OP-K Range of Motion Start: 07/22/18 13:01 Freq: Status: Active Protocol: Document 09/15/18 07:49 AMB (Rec: 09/15/18 07:55 AMB [id number]) Shoulder Goniometric Range of Motion Shoulder Measured in Degrees Left Active Flexion 155 Extension 70 Abduction 155 PT-OP-L Special Tests Start: 07/22/18 13:01 Freq: Status: Active Protocol: Document 07/22/18 12:00 HH (Rec: 07/22/18 13:49 HH [email or web address]) Special Tests Shoulder Special Tests painful arc Test Results +ve Comments most painful at 90 abduction Elevation Impingement Test Results +ve Comments most painful at 90 abduction concentrically and eccentrically Drop Arm Rotator Cuff Test Results -ve Passive ER Rotator Cuff Test Results +ve Comments pain reproduced at ER 50 degrees PT-OP-M Strength Start: 07/22/18 13:01 Freq: Status: Active Protocol: Document 09/15/18 07:49 AMB (Rec: 09/15/18 07:55 AMB [id number]) Shoulder Strength Shoulder Manual Muscle Testing Left Flexion 3+ Fair+ Extension 4 Good Abduction (C5) 3+ Fair+ External Rotation 3 Fair Internal Rotation 4- Good- PT-OP-Q Treatments Start: 07/22/18 13:01 Freq: Status: Active Protocol: Document 10/01/18 09:19 SA (Rec: 10/01/18 09:36 [email or web address]) Cardio Equipment Upper Body Ergometer (UBE) Duration (Minutes) 6 RPM 70 Seat Position 11 Height 3.5 Other fwd & back Gym Equipment Shuttle Balance 2 Details red Reps/Duration 5 min Comments Tandem stance, alternating UE movements Therapeutic Exercises Standing Exercises 4 Standing Exercise Name shoulder IR Resistance 2# Reps/Minutes 2x10 3 Standing Exercise Name rows Resistance #2 Reps/Minutes 2x10 shoulder EXT Resistance #2 Comments 2x10 1 Standing Exercise Name bicep curl Resistance #2 Reps/Minutes 2x10 Other Exercises Hurdles step overs Reps/Minutes 6 lengths of bar Comments avoiding hip circumduction Neuro Re-Education Treatment Balance Activities obstacle course Details stepping pads/pods Surface uneven Reps/Duration 8 lengths of bar Comments Cues for visual scanning and slowing down 2 Details lunge walk Surface around gym Equipment single pole Reps/Duration 2 laps PT-OP-R Modalities Start: 07/22/18 13:01 Freq: Status: Active Protocol: Document 09/10/18 08:25 SA (Rec: 09/10/18 08:34 [email or web address]) Electric Stimulation Electric Stimulation Interferential Current (IFC) Body Location left post and lateral shoulder Duration (Minutes) 15 Intensity 12 Patient Position Sidelying Combined With Heat/Cold Hot Pack PT-OP-T Assessment and Plan Start: 07/22/18 13:01 Freq: Status: Active Protocol: Document 10/01/18 09:19 SA (Rec: 10/01/18 09:36 [email or web address]) Physical Therapy Assessment Assessment Summary Assessment Pt tolerating increasing balance challenges, using pole at home for outdoor gait. Shoulder FLEX still limited [place] / hiking compensation. Physical Therapy Plan Next Visit Focus/Plan Next Note Type Treatment Note Next Visit Plan Continue to address shoulder ROM/strength deficits and progress balance/gait activity .
--- NOTE | 2018-10-05 09:30 | PT.OTN ---
Current Diagnoses Pain in left shoulder (10/05/18) Physical Therapy Treatment Note PT-OP-A Visit Information Start: 07/22/18 13:01 Freq: Status: Active Protocol: Document 10/05/18 09:19 SA (Rec: 10/05/18 09:30 SA [email or web address]) Out-Patient Physical Therapy Visit Information Visit Information Visit Type Treatment Note Visit Start Time 08:15 Visit Stop Time 09:01 Visit Number 17 Number of PROGRESSIVE ASSEMBLER AND FITTER Visits 3 PT-OP-B Current Condition Start: 07/22/18 13:01 Freq: Status: Active Protocol: Document 07/22/18 12:00 HH (Rec: 07/22/18 13:49 [email or web address]) Current Condition History of Current Condition Onset Date 07/22/18 Current Complaints L shoulder pain post fall History of Current Condition Pt is a 82yo pleasant female who presents to clinic with L shoulder pain since 07/10/18 after a fall. Pt fell on the street during negotiating a curb who landed on her L side of the face and L shoulder. Pt was admitted to the ER at with negative findings on X- ray for L shoulder fx. Pt c/o L shoulder pain 02/02 since then. Pain gets worse during mobility and functional activities such as OH movements from using a hairspring vibrator, donning her clothers, lifting boxes and cooking. Pt does report her symptoms and pain has been getting better over the past 3 weeks and starts to regain part of ROM but not so much for the strength. Pt currently cannot participate her gym class at [employer] due to her shoulder pain. Prior Treatments and Tests Pt received PT for her stroke 10 years ago Treatment Goals Patient/Caregiver Goals expects to reach PLOF in pain free such as using hairspring vibrator, cooking, doning her clothes and lifting boxes; to participate her gym class at [employer] 3x/week; return to walking 3miles /day Prior Functional Status Baseline Function- ADL's Independent Baseline Function- Mobility Independent Current Functional Impairments (Reported) Functional Limitations- ADL's Pain during OH movements and lifting who requires her 's help when needed Functional Limitations- Mobility/Gait Pain during OH movements and lifting who requires her 's help when needed PT-OP-C Subjective Start: 07/22/18 13:01 Freq: Status: Active Protocol: Document 10/05/18 09:19 SA (Rec: 10/05/18 09:30 SA [email or web address]) OP-PT Subjective Patient Comments Patient Comments Pt feels she is more aware of her balance and feels she is improving. Shoulder still feels weak with OH activity. PT-OP-E Functional Tests Start: 07/22/18 13:01 Freq: Status: Active Protocol: Document 09/15/18 07:30 AMB (Rec: 09/15/18 16:34 AMB [email or web address]) Functional Tests Dynamic Gait Index (DGI) Score 21 DGI Impairment Rating 1 to <20% Impaired (Score 20- 23) PT-OP-F Manual Assessment Start: 07/22/18 13:01 Freq: Status: Active Protocol: Document 07/22/18 12:00 HH (Rec: 07/22/18 13:49 HH [email or web address]) Manual Assessments Soft Tissue Assessment Soft Tissue Mobility Assessment significant tenderness at L UE and Pec major and minor Joint Mobility Assessment Joint Mobility Assessment hypomobile at L scapula upward and downward rotation PT-OP-K Range of Motion Start: 07/22/18 13:01 Freq: Status: Active Protocol: Document 09/15/18 07:49 AMB (Rec: 09/15/18 07:55 AMB [id number]) Shoulder Goniometric Range of Motion Shoulder Measured in Degrees Left Active Flexion 155 Extension 70 Abduction 155 PT-OP-L Special Tests Start: 07/22/18 13:01 Freq: Status: Active Protocol: Document 07/22/18 12:00 HH (Rec: 07/22/18 13:49 HH [email or web address]) Special Tests Shoulder Special Tests painful arc Test Results +ve Comments most painful at 90 abduction Elevation Impingement Test Results +ve Comments most painful at 90 abduction concentrically and eccentrically Drop Arm Rotator Cuff Test Results -ve Passive ER Rotator Cuff Test Results +ve Comments pain reproduced at ER 50 degrees PT-OP-M Strength Start: 07/22/18 13:01 Freq: Status: Active Protocol: Document 09/15/18 07:49 AMB (Rec: 09/15/18 07:55 AMB [email or web address]) Shoulder Strength Shoulder Manual Muscle Testing Left Flexion 3+ Fair+ Extension 4 Good Abduction (C5) 3+ Fair+ External Rotation 3 Fair Internal Rotation 4- Good- PT-OP-Q Treatments Start: 07/22/18 13:01 Freq: Status: Active Protocol: Document 10/05/18 09:19 (Rec: 10/05/18 09:30 [email or web address]) Cardio Equipment Upper Body Ergometer (UBE) Duration (Minutes) 6 RPM 60 Seat Position 11 Other fwd & back Gym Equipment Shuttle Balance 2 Details red Reps/Duration 6 min Comments Tandem stance, alternating UE movements Therapeutic Exercises Supine Exercises B shoulder FLEX with wand Side bilateral Resistance 2# Equipment Used wand Reps/Minutes 15x Standing Exercises 4 Standing Exercise Name shoulder IR Resistance 2# Reps/Minutes 2x10 3 Standing Exercise Name rows Resistance #2 Reps/Minutes 2x10 1 Standing Exercise Name bicep curl Resistance 3# Reps/Minutes 2x10 Other Exercises Hurdles step overs Reps/Minutes 6 lengths of bar Comments avoiding hip circumduction Neuro Re-Education Treatment Balance Activities lateral stepping with resistance Equipment Yellow TB Reps/Duration 6 lengths Comments at bar Tandem walk Reps/Duration 4 lengths Comments at bar, cues for posture, visual scanning obstacle course Details stepping pads/pods Surface uneven Reps/Duration 8 lengths of bar Comments Cues for visual scanning and slowing down 2 Details lunge walk Surface around gym Equipment single pole Reps/Duration 2 laps PT-OP-R Modalities Start: 07/22/18 13:01 Freq: Status: Active Protocol: Document 09/10/18 08:25 (Rec: 09/10/18 08:34 [email or web address]) Electric Stimulation Electric Stimulation Interferential Current (IFC) Body Location left post and lateral shoulder Duration (Minutes) 15 Intensity 12 Patient Position Sidelying Combined With Heat/Cold Hot Pack PT-OP-T Assessment and Plan Start: 07/22/18 13:01 Freq: Status: Active Protocol: Document 10/05/18 09:19 (Rec: 10/05/18 09:30 [email or web address]) Physical Therapy Assessment Assessment Summary Assessment Balance training progressing well, pt tolerating increased challenges. Shoulder ROM improving but continued weakness with OH activity. Physical Therapy Plan Next Visit Focus/Plan Next Note Type Treatment Note Next Visit Plan Continue to address shoulder ROM/strength deficits and progress balance/gait activity .
--- NOTE | 2018-10-08 10:01 | PT.OTN ---
Current Diagnoses Pain in left shoulder (10/08/18) Physical Therapy Treatment Note PT-OP-A Visit Information Start: 07/22/18 13:01 Freq: Status: Active Protocol: Document 10/08/18 09:52 SA (Rec: 10/08/18 10:01 SA [email or web address]) Out-Patient Physical Therapy Visit Information Visit Information Visit Type Treatment Note Visit Start Time 08:11 Visit Stop Time 08:57 Visit Number 18 Number of NEWS COMMENTATOR Visits 4 PT-OP-B Current Condition Start: 07/22/18 13:01 Freq: Status: Active Protocol: Document 07/22/18 12:00 (Rec: 07/22/18 13:49 [email or web address]) Current Condition History of Current Condition Onset Date 07/22/18 Current Complaints L shoulder pain post fall History of Current Condition Pt is a 82yo pleasant female who presents to clinic with L shoulder pain since 07/10/18 after a fall. Pt fell on the street during negotiating a curb who landed on her L side of the face and L shoulder. Pt was admitted to the ER at with negative findings on X- ray for L shoulder fx. Pt c/o L shoulder pain 02/02 since then. Pain gets worse during mobility and functional activities such as OH movements from using a hairspring studder, donning her clothers, lifting boxes and cooking. Pt does report her symptoms and pain has been getting better over the past 3 weeks and starts to regain part of ROM but not so much for the strength. Pt currently cannot participate her gym class at [facility] due to her shoulder pain. Prior Treatments and Tests Pt received PT for her stroke 10 years ago Treatment Goals Patient/Caregiver Goals expects to reach PLOF in pain free such as using hairspring studder, cooking, doning her clothes and lifting boxes; to participate her gym class at [facility] 3x/week; return to walking 3miles /day Prior Functional Status Baseline Function- ADL's Independent Baseline Function- Mobility Independent Current Functional Impairments (Reported) Functional Limitations- ADL's Pain during OH movements and lifting who requires her 's help when needed Functional Limitations- Mobility/Gait Pain during OH movements and lifting who requires her 's help when needed PT-OP-C Subjective Start: 07/22/18 13:01 Freq: Status: Active Protocol: Document 10/08/18 09:52 SA (Rec: 10/08/18 10:01 SA [email or web address]) OP-PT Subjective Patient Comments Patient Comments Pt progressing well with balance activity, shoulder with less pain but continued weakness with flexion and ABD. PT-OP-E Functional Tests Start: 07/22/18 13:01 Freq: Status: Active Protocol: Document 09/15/18 07:30 AMB (Rec: 09/15/18 16:34 AMB [email or web address]) Functional Tests Dynamic Gait Index (DGI) Score 21 DGI Impairment Rating 1 to <20% Impaired (Score 20- 23) PT-OP-F Manual Assessment Start: 07/22/18 13:01 Freq: Status: Active Protocol: Document 07/22/18 12:00 HH (Rec: 07/22/18 13:49 HH [email or web address]) Manual Assessments Soft Tissue Assessment Soft Tissue Mobility Assessment significant tenderness at L UE and Pec major and minor Joint Mobility Assessment Joint Mobility Assessment hypomobile at L scapula upward and downward rotation PT-OP-K Range of Motion Start: 07/22/18 13:01 Freq: Status: Active Protocol: Document 09/15/18 07:49 AMB (Rec: 09/15/18 07:55 AMB [id number]) Shoulder Goniometric Range of Motion Shoulder Measured in Degrees Left Active Flexion 155 Extension 70 Abduction 155 PT-OP-L Special Tests Start: 07/22/18 13:01 Freq: Status: Active Protocol: Document 07/22/18 12:00 HH (Rec: 07/22/18 13:49 HH [email or web address]) Special Tests Shoulder Special Tests painful arc Test Results +ve Comments most painful at 90 abduction Elevation Impingement Test Results +ve Comments most painful at 90 abduction concentrically and eccentrically Drop Arm Rotator Cuff Test Results -ve Passive ER Rotator Cuff Test Results +ve Comments pain reproduced at ER 50 degrees PT-OP-M Strength Start: 07/22/18 13:01 Freq: Status: Active Protocol: Document 09/15/18 07:49 AMB (Rec: 09/15/18 07:55 AMB [id number]) Shoulder Strength Shoulder Manual Muscle Testing Left Flexion 3+ Fair+ Extension 4 Good Abduction (C5) 3+ Fair+ External Rotation 3 Fair Internal Rotation 4- Good- PT-OP-Q Treatments Start: 07/22/18 13:01 Freq: Status: Active Protocol: Document 10/08/18 09:52 (Rec: 10/08/18 10:01 [email or web address]) Cardio Equipment Upper Body Ergometer (UBE) Duration (Minutes) 3 RPM 60 Seat Position 11 Other fwd & back Gym Equipment Shuttle Balance 2 Details red Reps/Duration 6 min Comments Tandem stance, alternating UE movements Therapeutic Exercises Supine Exercises B shoulder FLEX with wand Side bilateral Resistance 2# Equipment Used wand Reps/Minutes 20x Standing Exercises 4 Standing Exercise Name shoulder IR Resistance 2# Reps/Minutes 2x10 3 Standing Exercise Name rows Resistance #2 Reps/Minutes 2x10 shoulder EXT Resistance #2 TB Comments 2x10 Other Exercises Hurdles step overs Other Exercise Name limited UE support Reps/Minutes 6 lengths of bar Comments avoiding hip circumduction Neuro Re-Education Treatment Balance Activities SLS on pod Reps/Duration 20 x 2 Comments at bar lateral stepping with resistance Equipment Yellow TB Reps/Duration 6 lengths Comments at bar Tandem walk Reps/Duration 4 lengths Comments at bar, cues for posture, visual scanning obstacle course Details stepping pads/pods Surface uneven Reps/Duration 8 lengths of bar Comments Cues for visual scanning and slowing down 2 Details lunge walk Surface around gym Equipment single pole Reps/Duration 2 laps PT-OP-R Modalities Start: 07/22/18 13:01 Freq: Status: Active Protocol: Document 09/10/18 08:25 SA (Rec: 09/10/18 08:34 [email or web address]) Electric Stimulation Electric Stimulation Interferential Current (IFC) Body Location left post and lateral shoulder Duration (Minutes) 15 Intensity 12 Patient Position Sidelying Combined With Heat/Cold Hot Pack PT-OP-T Assessment and Plan Start: 07/22/18 13:01 Freq: Status: Active Protocol: Document 10/08/18 09:52 (Rec: 10/08/18 10:01 [email or web address]) Physical Therapy Assessment Assessment Summary Assessment Cont to progress L shoulder strengthening as tolerated, progress balance activity. Physical Therapy Plan Next Visit Focus/Plan Next Note Type Treatment Note Next Visit Plan Continue to address shoulder ROM/strength defecits and progress balance/gait activity .
--- NOTE | 2018-10-15 09:12 | PT.OTN ---
Current Diagnoses Pain in left shoulder (10/15/18) Physical Therapy Treatment Note PT-OP-A Visit Information Start: 07/22/18 13:01 Freq: Status: Active Protocol: Document 10/15/18 07:29 [facility] (Rec: 10/15/18 08:18 [facility] [id number]) Out-Patient Physical Therapy Visit Information Visit Information Visit Type Treatment Note Visit Start Time 07:30 Visit Stop Time 08:15 Total Visit Minutes 45 Visit Number 19 Number of FACTORY FOCUS TECHNICIAN Visits 0 PT-OP-B Current Condition Start: 07/22/18 13:01 Freq: Status: Active Protocol: Document 07/22/18 12:00 HH (Rec: 07/22/18 13:49 HH [email or web address]) Current Condition History of Current Condition Onset Date 07/22/18 Current Complaints L shoulder pain post fall History of Current Condition Pt is a 82yo pleasant female who presents to clinic with L shoulder pain since 07/10/18 after a fall. Pt fell on the street during negotiating a curb who landed on her L side of the face and L shoulder. Pt was admitted to the ER at with negative findings on X- ray for L shoulder fx. Pt c/o L shoulder pain 02/02 since then. Pain gets worse during mobility and functional activities such as OH movements from using a hair salon manager, donning her clothers, lifting boxes and cooking. Pt does report her symptoms and pain has been getting better over the past 3 weeks and starts to regain part of ROM but not so much for the strength. Pt currently cannot participate her gym class at [employer] due to her shoulder pain. Prior Treatments and Tests Pt received PT for her stroke 10 years ago Treatment Goals Patient/Caregiver Goals expects to reach PLOF in pain free such as using hair salon manager, cooking, doning her clothes and lifting boxes; to participate her gym class at [employer] 3x/week; return to walking 3miles /day Prior Functional Status Baseline Function- ADL's Independent Baseline Function- Mobility Independent Current Functional Impairments (Reported) Functional Limitations- ADL's Pain during OH movements and lifting who requires her 's help when needed Functional Limitations- Mobility/Gait Pain during OH movements and lifting who requires her 's help when needed PT-OP-C Subjective Start: 07/22/18 13:01 Freq: Status: Active Protocol: Document 10/15/18 07:29 [facility] (Rec: 10/15/18 08:18 [facility] [id number]) OP-PT Subjective Patient Comments Patient Comments Pt reports overhead activity is still difficult for her. Doing her hair the way she likes is difficult PT-OP-E Functional Tests Start: 07/22/18 13:01 Freq: Status: Active Protocol: Document 09/15/18 07:30 AMB (Rec: 09/15/18 16:34 AMB [email or web address]) Functional Tests Dynamic Gait Index (DGI) Score 21 DGI Impairment Rating 1 to <20% Impaired (Score 20- 23) PT-OP-F Manual Assessment Start: 07/22/18 13:01 Freq: Status: Active Protocol: Document 07/22/18 12:00 HH (Rec: 07/22/18 13:49 HH [email or web address]) Manual Assessments Soft Tissue Assessment Soft Tissue Mobility Assessment significant tenderness at L UE and Pec major and minor Joint Mobility Assessment Joint Mobility Assessment hypomobile at L scapula upward and downward rotation PT-OP-K Range of Motion Start: 07/22/18 13:01 Freq: Status: Active Protocol: Document 09/15/18 07:49 AMB (Rec: 09/15/18 07:55 AMB [id number]) Shoulder Goniometric Range of Motion Shoulder Measured in Degrees Left Active Flexion 155 Extension 70 Abduction 155 PT-OP-L Special Tests Start: 07/22/18 13:01 Freq: Status: Active Protocol: Document 07/22/18 12:00 HH (Rec: 07/22/18 13:49 HH [email or web address]) Special Tests Shoulder Special Tests painful arc Test Results +ve Comments most painful at 90 abduction Elevation Impingement Test Results +ve Comments most painful at 90 abduction concentrically and eccentrically Drop Arm Rotator Cuff Test Results -ve Passive ER Rotator Cuff Test Results +ve Comments pain reproduced at ER 50 degrees PT-OP-M Strength Start: 07/22/18 13:01 Freq: Status: Active Protocol: Document 09/15/18 07:49 AMB (Rec: 09/15/18 07:55 AMB [id number]) Shoulder Strength Shoulder Manual Muscle Testing Left Flexion 3+ Fair+ Extension 4 Good Abduction (C5) 3+ Fair+ External Rotation 3 Fair Internal Rotation 4- Good- PT-OP-Q Treatments Start: 07/22/18 13:01 Freq: Status: Active Protocol: Document 10/15/18 07:29 [facility] (Rec: 10/15/18 08:18 [facility] [id number]) Cardio Equipment Upper Body Ergometer (UBE) Duration (Minutes) 6 RPM 60 Seat Position 11 Other fwd & back Gym Equipment Shuttle Balance 2 Details red Reps/Duration 6 min Comments WBOS Fwd & side & fwd NBOS & staggered stance alternating UE movements Therapeutic Exercises Supine Exercises skull mosaic floor layer Supine Exercise Name tricep ext Side left Equipment Used 1# Reps/Minutes 20 B shoulder FLEX with wand Side bilateral Resistance 2# Equipment Used wand Reps/Minutes 2x10 2 Supine Exercise Name serratus punch Side left Equipment Used 2# Reps/Minutes 20 1 Supine Exercise Name 90/90 ER Side bilateral Reps/Minutes 15 Standing Exercises 1 Standing Exercise Name bicep curl Resistance 3# Reps/Minutes 2x10 Manual Therapy Treatment Soft Tissue Mobilization 1 Body Location UT Mobilization Type Rolling Neuro Re-Education Treatment Balance Activities 1 Details SLS PT-OP-R Modalities Start: 07/22/18 13:01 Freq: Status: Active Protocol: Document 09/10/18 08:25 SA (Rec: 09/10/18 08:34 SA [email or web address]) Electric Stimulation Electric Stimulation Interferential Current (IFC) Body Location left post and lateral shoulder Duration (Minutes) 15 Intensity 12 Patient Position Sidelying Combined With Heat/Cold Hot Pack PT-OP-T Assessment and Plan Start: 07/22/18 13:01 Freq: Status: Active Protocol: Document 10/15/18 07:29 [facility] (Rec: 10/15/18 08:18 [facility] [id number]) Physical Therapy Assessment Goals 4 Impairment strength Short Term Goal (STG) increase overall L GH strength by 1/2 MMT for returning PLOF such as holding a pot during cooking STG Duration 4 weeks Half-Way Goal (LTG) increase overall L GH strength by 1 MMT for returning PLOF such as holding a pot during cooking LTG Duration 8 weeks Three Impairment participation Short Term Goal (STG) able to participate her gym class 1x / week for overall strengthening. STG Duration 4 weeks Half-Way Goal (LTG) able to participate her gym class 2x / week for overall strengthening. LTG Duration 8 weeks Two Impairment ROM Short Term Goal (STG) increase overall L GH ROM by 15 degrees for OH functional activities such as using her wheelchair driver and donning her clothes STG Duration 4 weeks Half-Way Goal (LTG) increase overall L GH ROM by 30 degrees for OH functional activities such as using her wheelchair driver and donning her clothes LTG Duration 8 weeks One Impairment pain Short Term Goal (STG) Reduce L shoulder pain by 2points during shoulder flexion, abduction and ER STG Duration 4 weeks Half-Way Goal (LTG) Reduce L shoulder pain by 4 points during shoulder flexion , abduction and ER LTG Duration 8 weeks Assessment Summary Assessment Pt required encouragement to do no wt at her class and do as many reps of exercises she can before shoulder fatigues. She can do overhead motions but only a couple reps at a time d/t weakness and dec activity tolerance Physical Therapy Plan Frequency and Duration Frequency of Treatment 2x/Week Duration of Treatment 8 weeks Plan of Care Start Date 09/15/18 Plan of Care End Date 11/10/18 Next Visit Focus/Plan Next Note Type Treatment Note Next Visit Plan Advance overhead mobility and strength as tolerated
--- NOTE | 2018-10-19 08:58 | PT.OTN ---
Current Diagnoses Pain in left shoulder (10/19/18) Physical Therapy Treatment Note PT-OP-A Visit Information Start: 07/22/18 13:01 Freq: Status: Active Protocol: Document 10/19/18 08:17 [facility] (Rec: 10/19/18 08:57 [facility] [id number]) Out-Patient Physical Therapy Visit Information Visit Information Visit Type Treatment Note Visit Start Time 08:15 Visit Stop Time 08:55 Total Visit Minutes 40 Visit Number 20 Number of ELECTRIC WELL LOGGING OPERATOR Visits 0 PT-OP-B Current Condition Start: 07/22/18 13:01 Freq: Status: Active Protocol: Document 07/22/18 12:00 HH (Rec: 07/22/18 13:49 HH [email or web address]) Current Condition History of Current Condition Onset Date 07/22/18 Current Complaints L shoulder pain post fall History of Current Condition Pt is a 82yo pleasant female who presents to clinic with L shoulder pain since 07/10/18 after a fall. Pt fell on the street during negotiating a curb who landed on her L side of the face and L shoulder. Pt was admitted to the ER at with negative findings on X- ray for L shoulder fx. Pt c/o L shoulder pain 02/02 since then. Pain gets worse during mobility and functional activities such as OH movements from using a chair trimmer, donning her clothers, lifting boxes and cooking. Pt does report her symptoms and pain has been getting better over the past 3 weeks and starts to regain part of ROM but not so much for the strength. Pt currently cannot participate her gym class at [employer] due to her shoulder pain. Prior Treatments and Tests Pt received PT for her stroke 10 years ago Treatment Goals Patient/Caregiver Goals expects to reach PLOF in pain free such as using chair trimmer, cooking, doning her clothes and lifting boxes; to participate her gym class at [employer] 3x/week; return to walking 3miles /day Prior Functional Status Baseline Function- ADL's Independent Baseline Function- Mobility Independent Current Functional Impairments (Reported) Functional Limitations- ADL's Pain during OH movements and lifting who requires her 's help when needed Functional Limitations- Mobility/Gait Pain during OH movements and lifting who requires her 's help when needed PT-OP-C Subjective Start: 07/22/18 13:01 Freq: Status: Active Protocol: Document 10/19/18 08:17 [facility] (Rec: 10/19/18 08:57 [facility] [id number]) OP-PT Subjective Patient Comments Patient Comments Pt reports soreness after last session, but also went to strength and balance class. Thursday at class she was able to do more of the exercises though. PT-OP-E Functional Tests Start: 07/22/18 13:01 Freq: Status: Active Protocol: Document 09/15/18 07:30 AMB (Rec: 09/15/18 16:34 AMB [email or web address]) Functional Tests Dynamic Gait Index (DGI) Score 21 DGI Impairment Rating 1 to <20% Impaired (Score 20- 23) PT-OP-F Manual Assessment Start: 07/22/18 13:01 Freq: Status: Active Protocol: Document 07/22/18 12:00 HH (Rec: 07/22/18 13:49 HH [email or web address]) Manual Assessments Soft Tissue Assessment Soft Tissue Mobility Assessment significant tenderness at L UE and Pec major and minor Joint Mobility Assessment Joint Mobility Assessment hypomobile at L scapula upward and downward rotation PT-OP-K Range of Motion Start: 07/22/18 13:01 Freq: Status: Active Protocol: Document 09/15/18 07:49 AMB (Rec: 09/15/18 07:55 AMB [id number]) Shoulder Goniometric Range of Motion Shoulder Measured in Degrees Left Active Flexion 155 Extension 70 Abduction 155 PT-OP-L Special Tests Start: 07/22/18 13:01 Freq: Status: Active Protocol: Document 07/22/18 12:00 HH (Rec: 07/22/18 13:49 HH [email or web address]) Special Tests Shoulder Special Tests painful arc Test Results +ve Comments most painful at 90 abduction Elevation Impingement Test Results +ve Comments most painful at 90 abduction concentrically and eccentrically Drop Arm Rotator Cuff Test Results -ve Passive ER Rotator Cuff Test Results +ve Comments pain reproduced at ER 50 degrees PT-OP-M Strength Start: 07/22/18 13:01 Freq: Status: Active Protocol: Document 09/15/18 07:49 AMB (Rec: 09/15/18 07:55 AMB [id number]) Shoulder Strength Shoulder Manual Muscle Testing Left Flexion 3+ Fair+ Extension 4 Good Abduction (C5) 3+ Fair+ External Rotation 3 Fair Internal Rotation 4- Good- PT-OP-Q Treatments Start: 07/22/18 13:01 Freq: Status: Active Protocol: Document 10/19/18 08:17 [facility] (Rec: 10/19/18 08:57 [facility] [id number]) Cardio Equipment Upper Body Ergometer (UBE) Duration (Minutes) 6 RPM 60 Seat Position 11 Height 4 Other fwd & back Gym Equipment Shuttle Balance 2 Details red Comments wbos fwd & side w/hitting balloon BUE Therapeutic Exercises Supine Exercises skull second crusher Supine Exercise Name tricep ext Side left Equipment Used 1# Reps/Minutes 20 B shoulder FLEX with wand Side bilateral Resistance 2# Equipment Used wand Reps/Minutes 2x10 2 Supine Exercise Name serratus punch Side left Equipment Used 2# Reps/Minutes 20 1 Supine Exercise Name 90/90 ER Side bilateral Reps/Minutes 15 Sidelying Exercises abd Sidelying Exercise Name abd Side left Reps/Minutes 2x10 Comments tried 1# unable Standing Exercises ABC Standing Exercise Name ball at wall Side left Reps/Minutes 1 2 Standing Exercise Name scap stability ball circles on wall at 90 Side left Reps/Minutes [address] 1 Standing Exercise Name bicep curl Resistance 3# Reps/Minutes 2x10 Manual Therapy Treatment Joint Mobilizations 1 Joint GH Direction distraction, inf glide, post Grade II Neuro Re-Education Treatment Balance Activities 1 Details hurldes Comments 2 reps just hurdles 6 reps with balance pods PT-OP-R Modalities Start: 07/22/18 13:01 Freq: Status: Active Protocol: Document 09/10/18 08:25 SA (Rec: 09/10/18 08:34 SA [email or web address]) Electric Stimulation Electric Stimulation Interferential Current (IFC) Body Location left post and lateral shoulder Duration (Minutes) 15 Intensity 12 Patient Position Sidelying Combined With Heat/Cold Hot Pack PT-OP-T Assessment and Plan Start: 07/22/18 13:01 Freq: Status: Active Protocol: Document 10/19/18 08:17 [facility] (Rec: 10/19/18 08:57 [facility] [id number]) Physical Therapy Assessment Goals 4 Impairment strength Short Term Goal (STG) increase overall L GH strength by 1/2 MMT for returning PLOF such as holding a pot during cooking STG Duration 4 weeks Alf Goal (LTG) increase overall L GH strength by 1 MMT for returning PLOF such as holding a pot during cooking LTG Duration 8 weeks Three Impairment participation Short Term Goal (STG) able to participate her gym class 1x / week for overall strengthening. STG Duration 4 weeks Alf Goal (LTG) able to participate her gym class 2x / week for overall strengthening. LTG Duration 8 weeks Two Impairment ROM Short Term Goal (STG) increase overall L GH ROM by 15 degrees for OH functional activities such as using her hairspring studder and donning her clothes STG Duration 4 weeks Alf Goal (LTG) increase overall L GH ROM by 30 degrees for OH functional activities such as using her hairspring studder and donning her clothes LTG Duration 8 weeks One Impairment pain Short Term Goal (STG) Reduce L shoulder pain by 2points during shoulder flexion, abduction and ER STG Duration 4 weeks Sports Medicine Specialist Goal (LTG) Reduce L shoulder pain by 4 points during shoulder flexion , abduction and ER LTG Duration 8 weeks Assessment Summary Assessment Pt was significantly challanged by using UE to hit balloon on balance board today . She is progressing with ability to step over objects and did well with occasional rail use on hurdles. She cont to be challanged by overhead activity. Physical Therapy Plan Frequency and Duration Frequency of Treatment 2x/Week Duration of Treatment 8 weeks Plan of Care Start Date 09/15/18 Plan of Care End Date 11/10/18 Next Visit Focus/Plan Next Note Type Treatment Note Next Visit Plan Advance overhead mobility and strength as tolerated
--- NOTE | 2018-10-22 08:17 | PT.OTN ---
Current Diagnoses Pain in left shoulder (10/22/18) Physical Therapy Treatment Note PT-OP-A Visit Information Start: 07/22/18 13:01 Freq: Status: Active Protocol: Document 10/22/18 07:36 [facility] (Rec: 10/22/18 08:16 [facility] [id number]) Out-Patient Physical Therapy Visit Information Visit Information Visit Type Treatment Note Visit Start Time 07:30 Visit Stop Time 08:10 Total Visit Minutes 40 Visit Number 21 Number of AIR BRAKE OPERATOR Visits 0 PT-OP-B Current Condition Start: 07/22/18 13:01 Freq: Status: Active Protocol: Document 07/22/18 12:00 HH (Rec: 07/22/18 13:49 HH [email or web address]) Current Condition History of Current Condition Onset Date 07/22/18 Current Complaints L shoulder pain post fall History of Current Condition Pt is a 82yo pleasant female who presents to clinic with L shoulder pain since 07/10/18 after a fall. Pt fell on the street during negotiating a curb who landed on her L side of the face and L shoulder. Pt was admitted to the ER at with negative findings on X- ray for L shoulder fx. Pt c/o L shoulder pain 02/02 since then. Pain gets worse during mobility and functional activities such as OH movements from using a hair cutter, donning her clothers, lifting boxes and cooking. Pt does report her symptoms and pain has been getting better over the past 3 weeks and starts to regain part of ROM but not so much for the strength. Pt currently cannot participate her gym class at [employer] due to her shoulder pain. Prior Treatments and Tests Pt received PT for her stroke 10 years ago Treatment Goals Patient/Caregiver Goals expects to reach PLOF in pain free such as using hair cutter, cooking, doning her clothes and lifting boxes; to participate her gym class at [employer] 3x/week; return to walking 3miles /day Prior Functional Status Baseline Function- ADL's Independent Baseline Function- Mobility Independent Current Functional Impairments (Reported) Functional Limitations- ADL's Pain during OH movements and lifting who requires her 's help when needed Functional Limitations- Mobility/Gait Pain during OH movements and lifting who requires her 's help when needed PT-OP-C Subjective Start: 07/22/18 13:01 Freq: Status: Active Protocol: Document 10/22/18 07:36 [facility] (Rec: 10/22/18 08:16 [facility] [id number]) OP-PT Subjective Patient Comments Patient Comments Pt reports she was able to get her hair up last session. PT-OP-E Functional Tests Start: 07/22/18 13:01 Freq: Status: Active Protocol: Document 09/15/18 07:30 AMB (Rec: 09/15/18 16:34 AMB [email or web address]) Functional Tests Dynamic Gait Index (DGI) Score 21 DGI Impairment Rating 1 to <20% Impaired (Score 20- 23) PT-OP-F Manual Assessment Start: 07/22/18 13:01 Freq: Status: Active Protocol: Document 07/22/18 12:00 HH (Rec: 07/22/18 13:49 HH [email or web address]) Manual Assessments Soft Tissue Assessment Soft Tissue Mobility Assessment significant tenderness at L UE and Pec major and minor Joint Mobility Assessment Joint Mobility Assessment hypomobile at L scapula upward and downward rotation PT-OP-K Range of Motion Start: 07/22/18 13:01 Freq: Status: Active Protocol: Document 09/15/18 07:49 AMB (Rec: 09/15/18 07:55 AMB [id number]) Shoulder Goniometric Range of Motion Shoulder Measured in Degrees Left Active Flexion 155 Extension 70 Abduction 155 PT-OP-L Special Tests Start: 07/22/18 13:01 Freq: Status: Active Protocol: Document 07/22/18 12:00 HH (Rec: 07/22/18 13:49 HH [email or web address]) Special Tests Shoulder Special Tests painful arc Test Results +ve Comments most painful at 90 abduction Elevation Impingement Test Results +ve Comments most painful at 90 abduction concentrically and eccentrically Drop Arm Rotator Cuff Test Results -ve Passive ER Rotator Cuff Test Results +ve Comments pain reproduced at ER 50 degrees PT-OP-M Strength Start: 07/22/18 13:01 Freq: Status: Active Protocol: Document 09/15/18 07:49 AMB (Rec: 09/15/18 07:55 AMB [id number]) Shoulder Strength Shoulder Manual Muscle Testing Left Flexion 3+ Fair+ Extension 4 Good Abduction (C5) 3+ Fair+ External Rotation 3 Fair Internal Rotation 4- Good- PT-OP-Q Treatments Start: 07/22/18 13:01 Freq: Status: Active Protocol: Document 10/22/18 07:36 [facility] (Rec: 10/22/18 08:16 [facility] [id number]) Cardio Equipment Upper Body Ergometer (UBE) Duration (Minutes) 6 RPM 60 Seat Position 11 Height 4.5 Other fwd & back Gym Equipment Shuttle Balance 2 Details red Comments WBOS Fwd & side & fwd NBOS & staggered stance alternating UE movements Therapeutic Exercises Supine Exercises skull topology professor Supine Exercise Name tricep ext Side left Equipment Used 1# Reps/Minutes 30 2 Supine Exercise Name serratus punch Side left Equipment Used 3# Reps/Minutes 20 1 Supine Exercise Name 90/90 ER Side bilateral Reps/Minutes 15 Sidelying Exercises abd Sidelying Exercise Name abd Side left Reps/Minutes 2x10 1 Sidelying Exercise Name ER Side left Reps/Minutes 2x10 Standing Exercises D2 flex Standing Exercise Name D2 flex Side bilateral Reps/Minutes 2 d/t fatigue and pt unable ABC Standing Exercise Name ball at wall Side left Reps/Minutes 1 2 Standing Exercise Name scap stability ball circles on wall at 90 Side left Reps/Minutes [address] 1 Standing Exercise Name bicep curl Resistance 3# Reps/Minutes 2x10 Manual Therapy Treatment Soft Tissue Mobilization UT and pec Body Location UT & pec Mobilization Type Rolling Joint Mobilizations 1 Joint GH Direction distraction, inf glide, post Grade II Neuro Re-Education Treatment Balance Activities 1 Details hurldes Comments 2 reps just hurdles 6 reps with balance pods PT-OP-R Modalities Start: 07/22/18 13:01 Freq: Status: Active Protocol: Document 09/10/18 08:25 SA (Rec: 09/10/18 08:34 SA [email or web address]) Electric Stimulation Electric Stimulation Interferential Current (IFC) Body Location left post and lateral shoulder Duration (Minutes) 15 Intensity 12 Patient Position Sidelying Combined With Heat/Cold Hot Pack PT-OP-T Assessment and Plan Start: 07/22/18 13:01 Freq: Status: Active Protocol: Document 10/22/18 07:36 [facility] (Rec: 10/22/18 08:16 [facility] [id number]) Physical Therapy Assessment Goals 4 Impairment strength Short Term Goal (STG) increase overall L GH strength by 1/2 MMT for returning PLOF such as holding a pot during cooking STG Duration 4 weeks Artificial Plastic Eye Maker Goal (LTG) increase overall L GH strength by 1 MMT for returning PLOF such as holding a pot during cooking LTG Duration 8 weeks Three Impairment participation Short Term Goal (STG) able to participate her gym class 1x / week for overall strengthening. STG Duration achieved [facility] Goal (LTG) able to participate her gym class 2x / week for overall strengthening. LTG Duration achieved Two Impairment ROM Short Term Goal (STG) increase overall L GH ROM by 15 degrees for OH functional activities such as using her health sciences department chair and donning her clothes STG Duration 4 weeks Fdc Goal (LTG) increase overall L GH ROM by 30 degrees for OH functional activities such as using her health sciences department chair and donning her clothes LTG Duration 8 weeks One Impairment pain Short Term Goal (STG) Reduce L shoulder pain by 2points during shoulder flexion, abduction and ER STG Duration 4 weeks Fdc Goal (LTG) Reduce L shoulder pain by 4 points during shoulder flexion , abduction and ER LTG Duration 8 weeks Assessment Summary Assessment Pt cont to progress with balance and overhead movement. Handout given for recent exercises focusing on overhead . Physical Therapy Plan Frequency and Duration Frequency of Treatment 2x/Week Duration of Treatment 8 weeks Plan of Care Start Date 09/15/18 Plan of Care End Date 11/10/18 Next Visit Focus/Plan Next Note Type Treatment Note Next Visit Plan Advance overhead mobility and strength as tolerated
--- NOTE | 2018-10-25 10:33 | PT.OTN ---
Current Diagnoses Pain in left shoulder (10/25/18) Physical Therapy Treatment Note PT-OP-A Visit Information Start: 07/22/18 13:01 Freq: Status: Active Protocol: Document 10/25/18 09:46 [facility] (Rec: 10/25/18 10:33 [facility] [id number]) Out-Patient Physical Therapy Visit Information Visit Information Visit Type Treatment Note Visit Start Time 09:45 Visit Stop Time 10:30 Total Visit Minutes 45 Visit Number 22 Number of AIRLINE FLIGHT ATTENDANT Visits 0 PT-OP-B Current Condition Start: 07/22/18 13:01 Freq: Status: Active Protocol: Document 07/22/18 12:00 HH (Rec: 07/22/18 13:49 HH [email or web address]) Current Condition History of Current Condition Onset Date 07/22/18 Current Complaints L shoulder pain post fall History of Current Condition Pt is a 82yo pleasant female who presents to clinic with L shoulder pain since 07/10/18 after a fall. Pt fell on the street during negotiating a curb who landed on her L side of the face and L shoulder. Pt was admitted to the ER at with negative findings on X- ray for L shoulder fx. Pt c/o L shoulder pain 02/02 since then. Pain gets worse during mobility and functional activities such as OH movements from using a examining chair assembler, donning her clothers, lifting boxes and cooking. Pt does report her symptoms and pain has been getting better over the past 3 weeks and starts to regain part of ROM but not so much for the strength. Pt currently cannot participate her gym class at [employer] due to her shoulder pain. Prior Treatments and Tests Pt received PT for her stroke 10 years ago Treatment Goals Patient/Caregiver Goals expects to reach PLOF in pain free such as using examining chair assembler, cooking, doning her clothes and lifting boxes; to participate her gym class at [employer] 3x/week; return to walking 3miles /day Prior Functional Status Baseline Function- ADL's Independent Baseline Function- Mobility Independent Current Functional Impairments (Reported) Functional Limitations- ADL's Pain during OH movements and lifting who requires her 's help when needed Functional Limitations- Mobility/Gait Pain during OH movements and lifting who requires her 's help when needed PT-OP-C Subjective Start: 07/22/18 13:01 Freq: Status: Active Protocol: Document 10/25/18 09:46 [facility] (Rec: 10/25/18 10:33 [facility] [id number]) OP-PT Subjective Patient Comments Patient Comments Pt walked the [place] trail this weekend and noted she was able to do her hair this AM. Patient Reported Progress Improving PT-OP-E Functional Tests Start: 07/22/18 13:01 Freq: Status: Active Protocol: Document 09/15/18 07:30 AMB (Rec: 09/15/18 16:34 AMB [email or web address]) Functional Tests Dynamic Gait Index (DGI) Score 21 DGI Impairment Rating 1 to <20% Impaired (Score 20- 23) PT-OP-F Manual Assessment Start: 07/22/18 13:01 Freq: Status: Active Protocol: Document 07/22/18 12:00 HH (Rec: 07/22/18 13:49 HH [email or web address]) Manual Assessments Soft Tissue Assessment Soft Tissue Mobility Assessment significant tenderness at L UE and Pec major and minor Joint Mobility Assessment Joint Mobility Assessment hypomobile at L scapula upward and downward rotation PT-OP-K Range of Motion Start: 07/22/18 13:01 Freq: Status: Active Protocol: Document 09/15/18 07:49 AMB (Rec: 09/15/18 07:55 AMB [id number]) Shoulder Goniometric Range of Motion Shoulder Measured in Degrees Left Active Flexion 155 Extension 70 Abduction 155 PT-OP-L Special Tests Start: 07/22/18 13:01 Freq: Status: Active Protocol: Document 07/22/18 12:00 HH (Rec: 07/22/18 13:49 HH [email or web address]) Special Tests Shoulder Special Tests painful arc Test Results +ve Comments most painful at 90 abduction Elevation Impingement Test Results +ve Comments most painful at 90 abduction concentrically and eccentrically Drop Arm Rotator Cuff Test Results -ve Passive ER Rotator Cuff Test Results +ve Comments pain reproduced at ER 50 degrees PT-OP-M Strength Start: 07/22/18 13:01 Freq: Status: Active Protocol: Document 09/15/18 07:49 AMB (Rec: 09/15/18 07:55 AMB [id number]) Shoulder Strength Shoulder Manual Muscle Testing Left Flexion 3+ Fair+ Extension 4 Good Abduction (C5) 3+ Fair+ External Rotation 3 Fair Internal Rotation 4- Good- PT-OP-Q Treatments Start: 07/22/18 13:01 Freq: Status: Active Protocol: Document 10/25/18 09:46 [facility] (Rec: 10/25/18 10:33 [facility] [id number]) Cardio Equipment Upper Body Ergometer (UBE) Duration (Minutes) 6 RPM 60 Seat Position 11 Height 5 Other fwd & back Gym Equipment Shuttle Balance 2 Details red Comments wbos & NBOS fwd & side w/ hitting balloon BUE Therapeutic Exercises Supine Exercises skull crusher supervisor Supine Exercise Name tricep ext Side left Equipment Used 1# Reps/Minutes 30 B shoulder FLEX with wand Side bilateral Resistance 2# Equipment Used wand Reps/Minutes 2x10 2 Supine Exercise Name serratus punch Side left Equipment Used 3# Reps/Minutes 20 Sidelying Exercises 1 Sidelying Exercise Name ER Side left Reps/Minutes 2x10 Standing Exercises D2 flex Standing Exercise Name D2 flex Side bilateral Reps/Minutes 8 d/t fatigue and pt unable ABC Standing Exercise Name ball at wall Side left Reps/Minutes 1 4 Standing Exercise Name shoulder IR Resistance 3# Reps/Minutes 2x10 shoulder EXT Resistance #4 TB Comments 2x10 2 Standing Exercise Name scap stability ball circles on wall at 90 Side left Reps/Minutes [address] 1 Standing Exercise Name bicep curl Resistance 4# Reps/Minutes 2x10 Manual Therapy Treatment Joint Mobilizations 1 Joint GH Direction distraction, inf glide, post Grade III Neuro Re-Education Treatment Balance Activities 2 Details bosu step ups Reps/Duration 10 B Comments stand on bosu 4 sec ea PT-OP-R Modalities Start: 07/22/18 13:01 Freq: Status: Active Protocol: Document 09/10/18 08:25 SA (Rec: 09/10/18 08:34 SA [email or web address]) Electric Stimulation Electric Stimulation Interferential Current (IFC) Body Location left post and lateral shoulder Duration (Minutes) 15 Intensity 12 Patient Position Sidelying Combined With Heat/Cold Hot Pack PT-OP-T Assessment and Plan Start: 07/22/18 13:01 Freq: Status: Active Protocol: Document 10/25/18 09:46 [facility] (Rec: 10/25/18 10:33 [facility] [id number]) Physical Therapy Assessment Goals 4 Impairment strength Short Term Goal (STG) increase overall L GH strength by 1/2 MMT for returning PLOF such as holding a pot during cooking STG Duration 4 weeks Prison Goal (LTG) increase overall L GH strength by 1 MMT for returning PLOF such as holding a pot during cooking LTG Duration 8 weeks Three Impairment participation Short Term Goal (STG) able to participate her gym class 1x / week for overall strengthening. STG Duration achieved [facility] Goal (LTG) able to participate her gym class 2x / week for overall strengthening. LTG Duration achieved Two Impairment ROM Short Term Goal (STG) increase overall L GH ROM by 15 degrees for OH functional activities such as using her unhairer and donning her clothes STG Duration 4 weeks Manager Enterprise Content Management Goal (LTG) increase overall L GH ROM by 30 degrees for OH functional activities such as using her unhairer and donning her clothes LTG Duration 8 weeks One Impairment pain Short Term Goal (STG) Reduce L shoulder pain by 2points during shoulder flexion, abduction and ER STG Duration 4 weeks Prison Goal (LTG) Reduce L shoulder pain by 4 points during shoulder flexion , abduction and ER LTG Duration 8 weeks Assessment Summary Assessment Pt was able to progress with resistance today. Inc resistance for HEP exercises at this time. She cont to improve with balance. Physical Therapy Plan Frequency and Duration Frequency of Treatment 2x/Week Duration of Treatment 8 weeks Plan of Care Start Date 09/15/18 Plan of Care End Date 11/10/18 Next Visit Focus/Plan Next Note Type Treatment Note Next Visit Plan Advance overhead mobility and strength as tolerated
--- NOTE | 2018-11-02 09:02 | PT.OTN ---
Current Diagnoses Pain in left shoulder (11/02/18) Physical Therapy Treatment Note PT-OP-A Visit Information Start: 07/22/18 13:01 Freq: Status: Active Protocol: Document 11/02/18 08:56 [facility] (Rec: 11/02/18 09:02 [facility] [email or web address]) Out-Patient Physical Therapy Visit Information Visit Information Visit Type Treatment Note Visit Start Time 08:05 Visit Stop Time 08:55 Total Visit Minutes 50 Visit Number 23 Number of METER CHANGES RECORDS CLERK Visits 1 PT-OP-B Current Condition Start: 07/22/18 13:01 Freq: Status: Active Protocol: Document 07/22/18 12:00 HH (Rec: 07/22/18 13:49 HH [email or web address]) Current Condition History of Current Condition Onset Date 07/22/18 Current Complaints L shoulder pain post fall History of Current Condition Pt is a 82yo pleasant female who presents to clinic with L shoulder pain since 07/10/18 after a fall. Pt fell on the street during negotiating a curb who landed on her L side of the face and L shoulder. Pt was admitted to the ER at with negative findings on X- ray for L shoulder fx. Pt c/o L shoulder pain 02/02 since then. Pain gets worse during mobility and functional activities such as OH movements from using a fine hairer, donning her clothers, lifting boxes and cooking. Pt does report her symptoms and pain has been getting better over the past 3 weeks and starts to regain part of ROM but not so much for the strength. Pt currently cannot participate her gym class at [employer] due to her shoulder pain. Prior Treatments and Tests Pt received PT for her stroke 10 years ago Treatment Goals Patient/Caregiver Goals expects to reach PLOF in pain free such as using fine hairer, cooking, doning her clothes and lifting boxes; to participate her gym class at [employer] 3x/week; return to walking 3miles /day Prior Functional Status Baseline Function- ADL's Independent Baseline Function- Mobility Independent Current Functional Impairments (Reported) Functional Limitations- ADL's Pain during OH movements and lifting who requires her 's help when needed Functional Limitations- Mobility/Gait Pain during OH movements and lifting who requires her 's help when needed PT-OP-C Subjective Start: 07/22/18 13:01 Freq: Status: Active Protocol: Document 11/02/18 08:56 [facility] (Rec: 11/02/18 09:02 [facility] [email or web address]) OP-PT Subjective Patient Comments Patient Comments Pt reports feeling very sore after increase in weight with shoulder flexion and IR/ER. Did less exercise on her own. PT-OP-E Functional Tests Start: 07/22/18 13:01 Freq: Status: Active Protocol: Document 09/15/18 07:30 AMB (Rec: 09/15/18 16:34 AMB [email or web address]) Functional Tests Dynamic Gait Index (DGI) Score 21 DGI Impairment Rating 1 to <20% Impaired (Score 20- 23) PT-OP-F Manual Assessment Start: 07/22/18 13:01 Freq: Status: Active Protocol: Document 07/22/18 12:00 HH (Rec: 07/22/18 13:49 HH [email or web address]) Manual Assessments Soft Tissue Assessment Soft Tissue Mobility Assessment significant tenderness at L UE and Pec major and minor Joint Mobility Assessment Joint Mobility Assessment hypomobile at L scapula upward and downward rotation PT-OP-K Range of Motion Start: 07/22/18 13:01 Freq: Status: Active Protocol: Document 09/15/18 07:49 AMB (Rec: 09/15/18 07:55 AMB [id number]) Shoulder Goniometric Range of Motion Shoulder Measured in Degrees Left Active Flexion 155 Extension 70 Abduction 155 PT-OP-L Special Tests Start: 07/22/18 13:01 Freq: Status: Active Protocol: Document 07/22/18 12:00 HH (Rec: 07/22/18 13:49 HH [email or web address]) Special Tests Shoulder Special Tests painful arc Test Results +ve Comments most painful at 90 abduction Elevation Impingement Test Results +ve Comments most painful at 90 abduction concentrically and eccentrically Drop Arm Rotator Cuff Test Results -ve Passive ER Rotator Cuff Test Results +ve Comments pain reproduced at ER 50 degrees PT-OP-M Strength Start: 07/22/18 13:01 Freq: Status: Active Protocol: Document 09/15/18 07:49 AMB (Rec: 09/15/18 07:55 AMB [id number]) Shoulder Strength Shoulder Manual Muscle Testing Left Flexion 3+ Fair+ Extension 4 Good Abduction (C5) 3+ Fair+ External Rotation 3 Fair Internal Rotation 4- Good- PT-OP-Q Treatments Start: 07/22/18 13:01 Freq: Status: Active Protocol: Document 11/02/18 08:56 [facility] (Rec: 11/02/18 09:02 [email or web address]) Cardio Equipment Upper Body Ergometer (UBE) Duration (Minutes) 6 RPM 60 Seat Position 11 Height 5 Other fwd & back Gym Equipment Shuttle Balance 2 Details red Comments wbos & NBOS fwd & side w/ hitting balloon BUE Therapeutic Exercises Supine Exercises skull filtrose crusher Supine Exercise Name tricep ext Side left Equipment Used 1# Reps/Minutes 30 B shoulder FLEX with wand Side bilateral Resistance 2# Equipment Used wand Reps/Minutes 2x10 2 Supine Exercise Name serratus punch Side left Equipment Used 3# Reps/Minutes 20 1 Supine Exercise Name 90/90 ER Side left Equipment Used 1# Reps/Minutes 15 Sidelying Exercises abd Sidelying Exercise Name abd Side left Reps/Minutes 2x10 Comments 1# Standing Exercises ABC Standing Exercise Name ball at wall Side left Reps/Minutes 1 4 Standing Exercise Name shoulder IR Resistance 3# Reps/Minutes 2x10 shoulder EXT Resistance 3# Comments 2x10 2 Standing Exercise Name scap stability ball circles on wall at 90 Side left Reps/Minutes [address] Neuro Re-Education Treatment Balance Activities SLS on pod Equipment pods Reps/Duration 5-10 x 4 each Tandem walk Surface level Reps/Duration 4 lenghts 1 Details hurldes Comments 2 reps just hurdles 6 reps with balance pods PT-OP-R Modalities Start: 07/22/18 13:01 Freq: Status: Active Protocol: Document 09/10/18 08:25 SA (Rec: 09/10/18 08:34 [email or web address]) Electric Stimulation Electric Stimulation Interferential Current (IFC) Body Location left post and lateral shoulder Duration (Minutes) 15 Intensity 12 Patient Position Sidelying Combined With Heat/Cold Hot Pack PT-OP-T Assessment and Plan Start: 07/22/18 13:01 Freq: Status: Active Protocol: Document 11/02/18 08:56 SA (Rec: 11/02/18 09:02 [email or web address]) Physical Therapy Assessment Assessment Summary Assessment Pt encouraged to use CP when shoulder is sore, doing exercise class outside of clinic, tolerated ther ex well today. Physical Therapy Plan Next Visit Focus/Plan Next Note Type Treatment Note Next Visit Plan Advance overhead mobility and strength as tolerated
--- NOTE | 2018-11-09 11:10 | PT.OTN ---
Current Diagnoses Pain in left shoulder (11/09/18) Physical Therapy Treatment Note PT-OP-A Visit Information Start: 07/22/18 13:01 Freq: Status: Active Protocol: Document 11/09/18 11:00 SA (Rec: 11/09/18 11:10 SA [email or web address]) Out-Patient Physical Therapy Visit Information Visit Information Visit Type Discharge Summary Visit Start Time 08:15 Visit Stop Time 09:03 Total Visit Minutes 48 Visit Number 24 Number of RN BUILDING Visits 2 PT-OP-B Current Condition Start: 07/22/18 13:01 Freq: Status: Active Protocol: Document 07/22/18 12:00 HH (Rec: 07/22/18 13:49 HH [email or web address]) Current Condition History of Current Condition Onset Date 07/22/18 Current Complaints L shoulder pain post fall History of Current Condition Pt is a 82yo pleasant female who presents to clinic with L shoulder pain since 07/10/18 after a fall. Pt fell on the street during negotiating a curb who landed on her L side of the face and L shoulder. Pt was admitted to the ER at with negative findings on X- ray for L shoulder fx. Pt c/o L shoulder pain 02/02 since then. Pain gets worse during mobility and functional activities such as OH movements from using a health sciences department chair, donning her clothers, lifting boxes and cooking. Pt does report her symptoms and pain has been getting better over the past 3 weeks and starts to regain part of ROM but not so much for the strength. Pt currently cannot participate her gym class at [employer] due to her shoulder pain. Prior Treatments and Tests Pt received PT for her stroke 10 years ago Treatment Goals Patient/Caregiver Goals expects to reach PLOF in pain free such as using health sciences department chair, cooking, doning her clothes and lifting boxes; to participate her gym class at [employer] 3x/week; return to walking 3miles /day Prior Functional Status Baseline Function- ADL's Independent Baseline Function- Mobility Independent Current Functional Impairments (Reported) Functional Limitations- ADL's Pain during OH movements and lifting who requires her 's help when needed Functional Limitations- Mobility/Gait Pain during OH movements and lifting who requires her 's help when needed PT-OP-C Subjective Start: 07/22/18 13:01 Freq: Status: Active Protocol: Document 11/09/18 11:00 SA (Rec: 11/09/18 11:10 SA [email or web address]) OP-PT Subjective Patient Comments Patient Comments Pt participating in exercise classes 3x/week with good tolerance, increased endurance with OH activity and reports dedreased instances of shoulder pain. PT-OP-E Functional Tests Start: 07/22/18 13:01 Freq: Status: Active Protocol: Document 09/15/18 07:30 AMB (Rec: 09/15/18 16:34 AMB [email or web address]) Functional Tests Dynamic Gait Index (DGI) Score 21 DGI Impairment Rating 1 to <20% Impaired (Score 20- 23) PT-OP-F Manual Assessment Start: 07/22/18 13:01 Freq: Status: Active Protocol: Document 07/22/18 12:00 HH (Rec: 07/22/18 13:49 HH [email or web address]) Manual Assessments Soft Tissue Assessment Soft Tissue Mobility Assessment significant tenderness at L UE and Pec major and minor Joint Mobility Assessment Joint Mobility Assessment hypomobile at L scapula upward and downward rotation PT-OP-K Range of Motion Start: 07/22/18 13:01 Freq: Status: Active Protocol: Document 09/15/18 07:49 AMB (Rec: 09/15/18 07:55 AMB [id number]) Shoulder Goniometric Range of Motion Shoulder Measured in Degrees Left Active Flexion 155 Extension 70 Abduction 155 PT-OP-L Special Tests Start: 07/22/18 13:01 Freq: Status: Active Protocol: Document 07/22/18 12:00 HH (Rec: 07/22/18 13:49 HH [email or web address]) Special Tests Shoulder Special Tests painful arc Test Results +ve Comments most painful at 90 abduction Elevation Impingement Test Results +ve Comments most painful at 90 abduction concentrically and eccentrically Drop Arm Rotator Cuff Test Results -ve Passive ER Rotator Cuff Test Results +ve Comments pain reproduced at ER 50 degrees PT-OP-M Strength Start: 07/22/18 13:01 Freq: Status: Active Protocol: Document 09/15/18 07:49 AMB (Rec: 09/15/18 07:55 AMB [id number]) Shoulder Strength Shoulder Manual Muscle Testing Left Flexion 3+ Fair+ Extension 4 Good Abduction (C5) 3+ Fair+ External Rotation 3 Fair Internal Rotation 4- Good- PT-OP-Q Treatments Start: 07/22/18 13:01 Freq: Status: Active Protocol: Document 11/09/18 11:00 SA (Rec: 11/09/18 11:10 SA [email or web address]) Cardio Equipment Upper Body Ergometer (UBE) Duration (Minutes) 6 RPM 55 Seat Position 11 Height 5 Other fwd & back Gym Equipment Shuttle Balance 2 Details red Comments wbos & NBOS fwd & side w/ hitting balloon BUE Therapeutic Exercises Supine Exercises B shoulder FLEX with wand Side bilateral Resistance 2# Equipment Used wand Reps/Minutes 2x10 2 Supine Exercise Name serratus punch Side left Equipment Used 3# Reps/Minutes 20 Sidelying Exercises abd Sidelying Exercise Name abd Side left Reps/Minutes 2x10 Comments 1# Standing Exercises D2 flex Standing Exercise Name D2 flex Side bilateral Reps/Minutes 8 d/t fatigue and pt unable shoulder EXT Resistance 3# Comments 2x10 Manual Therapy Treatment Joint Mobilizations 1 Joint GH Direction distraction, inf glide, post Grade III Neuro Re-Education Treatment Balance Activities SLS on pod Equipment pods Reps/Duration 5-10 x 4 each PT-OP-R Modalities Start: 07/22/18 13:01 Freq: Status: Active Protocol: Document 09/10/18 08:25 SA (Rec: 09/10/18 08:34 [email or web address]) Electric Stimulation Electric Stimulation Interferential Current (IFC) Body Location left post and lateral shoulder Duration (Minutes) 15 Intensity 12 Patient Position Sidelying Combined With Heat/Cold Hot Pack PT-OP-T Assessment and Plan Start: 07/22/18 13:01 Freq: Status: Active Protocol: Document 11/09/18 11:00 SA (Rec: 11/09/18 11:10 [email or web address]) Physical Therapy Assessment Progress Towards Goals Progress Towards Goals Goals Met Progress Comments Pt with MMT today and L shoulder Flex 4, ABD 4,EXT 4 and IR 4 and ER 4- for overall improvements with muscle strength, AROM FLex 170, IR 80 , ER 55 and ABD 148 degrees. Assessment Summary Assessment Pt reached strength and ROM goals as well as tolerance of exercise classes 3x week and ability to perform OH ADLs with decreased sx. Updated DGI score today of 23/24 up from 2124 for decreased risk of falls. Review of HEP completed . Physical Therapy Plan Discharge Physical Therapy Discharge Reasons Goals Met Discharge Comments Pt to continue with HEP and exercise classes.
--- NOTE | 2019-03-11 14:22 | PT.OPDS ---
Current Diagnoses Pain in left shoulder (11/09/18) Provider Visit Care Team Role Provider Type Viky Seymour MD Attending Provider Physician Family Provider Primary Care Provider Specialty: Family Practice Address: [address] [place] [address], [facility] Email: Visit Number Visit Number 24 Discharge Summary PT-OP-B Current Condition Start: 07/22/18 13:01 Freq: Status: Active Protocol: Document 07/22/18 12:00 (Rec: 07/22/18 13:49 [email or web address]) Current Condition History of Current Condition Onset Date 07/22/18 Current Complaints L shoulder pain post fall History of Current Condition Pt is a 82yo pleasant female who presents to clinic with L shoulder pain since 07/10/18 after a fall. Pt fell on the street during negotiating a curb who landed on her L side of the face and L shoulder. Pt was admitted to the ER at with negative findings on X- ray for L shoulder fx. Pt c/o L shoulder pain 02/02 since then. Pain gets worse during mobility and functional activities such as OH movements from using a dental chairside assistant, donning her clothers, lifting boxes and cooking. Pt does report her symptoms and pain has been getting better over the past 3 weeks and starts to regain part of ROM but not so much for the strength. Pt currently cannot participate her gym class at [facility] [employer] due to her shoulder pain. Prior Treatments and Tests Pt received PT for her stroke 10 years ago Treatment Goals Patient/Caregiver Goals expects to reach PLOF in pain free such as using dental chairside assistant, cooking, doning her clothes and lifting boxes; to participate her gym class at [employer] [employer] 3x/week; return to walking 3miles /day Prior Functional Status Baseline Function- ADL's Independent Baseline Function- Mobility Independent Current Functional Impairments (Reported) Functional Limitations- ADL's Pain during OH movements and lifting who requires her 's help when needed Functional Limitations- Mobility/Gait Pain during OH movements and lifting who requires her 's help when needed PT-OP-C Subjective Start: 07/22/18 13:01 Freq: Status: Active Protocol: Document 11/09/18 11:00 SA (Rec: 11/09/18 11:10 SA [email or web address]) OP-PT Subjective Patient Comments Patient Comments Pt participating in exercise classes 3x/week with good tolerance, increased endurance with OH activity and reports dedreased instances of shoulder pain. PT-OP-E Functional Tests Start: 07/22/18 13:01 Freq: Status: Active Protocol: Document 09/15/18 07:30 AMB (Rec: 09/15/18 16:34 AMB [email or web address]) Functional Tests Dynamic Gait Index (DGI) Score 21 DGI Impairment Rating 1 to <20% Impaired (Score 20- 23) PT-OP-F Manual Assessment Start: 07/22/18 13:01 Freq: Status: Active Protocol: Document 07/22/18 12:00 HH (Rec: 07/22/18 13:49 HH [email or web address]) Manual Assessments Soft Tissue Assessment Soft Tissue Mobility Assessment significant tenderness at L UE and Pec major and minor Joint Mobility Assessment Joint Mobility Assessment hypomobile at L scapula upward and downward rotation PT-OP-K Range of Motion Start: 07/22/18 13:01 Freq: Status: Active Protocol: Document 09/15/18 07:49 AMB (Rec: 09/15/18 07:55 AMB [id number]) Shoulder Goniometric Range of Motion Shoulder Left Active Flexion 155 Extension 70 Abduction 155 PT-OP-L Special Tests Start: 07/22/18 13:01 Freq: Status: Active Protocol: Document 07/22/18 12:00 HH (Rec: 07/22/18 13:49 HH [email or web address]) Special Tests Shoulder Special Tests painful arc Test Results +ve Comments most painful at 90 abduction Elevation Impingement Test Results +ve Comments most painful at 90 abduction concentrically and eccentrically Drop Arm Rotator Cuff Test Results -ve Passive ER Rotator Cuff Test Results +ve Comments pain reproduced at ER 50 degrees PT-OP-M Strength Start: 07/22/18 13:01 Freq: Status: Active Protocol: Document 09/15/18 07:49 AMB (Rec: 09/15/18 07:55 AMB [id number]) Shoulder Strength Shoulder Manual Muscle Testing Left Flexion 3+ Fair+ Extension 4 Good Abduction (C5) 3+ Fair+ External Rotation 3 Fair Internal Rotation 4- Good- PT-OP-T Assessment and Plan Start: 07/22/18 13:01 Freq: Status: Active Protocol: Document 03/11/19 14:21 HH (Rec: 03/11/19 14:21 [email or web address]) Physical Therapy Plan Discharge Physical Therapy Discharge Reasons Goals Met Discharge Comments Per last PT report, pt has reached her rehab goals. D/C from PT
== END 2019-03-15 16:24 | disposition home or self-care (01) ==
LOC: PHYS 08:15
PROVIDERS: Family Provider Family Medicine; PCP Family Medicine; Visit Provider Family Medicine
DX: M25.512 Pain in left shoulder (principal)
CPT/HCPCS: 97010; 97014; 97110; 97112; 97116; 97140; 97162; G0283

== ENCOUNTER → 2019-01-03 06:54 | Outpatient (CLI) | payer MEDICARE, SELFPAY ==
[2019-01-03 07:50] LABS: Add Manual Diff / Slide Review NO; Basophils Absolute Auto 0 /uL (0-100); Basophils Percent Auto 0.5 % (0-2); Eosinophils Absolute Auto 200 /uL (0-450); Eosinophils Percent Auto 2.8 % (2-4); Hematocrit 40.8 % (36-46); Hemoglobin 13.9 g/dL (12.0-16.0); Lymphocytes Absolute Auto 1600 /uL (1100-4500); Lymphocytes Percent Auto 29.5 % (25-40); Mean Corpuscular HGB Conc 34.1 % (30-36); Mean Corpuscular Hemoglobin 32.6 PG (26-34); Mean Corpuscular Volume 95.6 fL (80-100); Monocytes Absolute Auto 500 /uL (0-900); Monocytes Percent Auto 9.5 % (3-14); Neutrophils Absolute Auto 3200 /uL (1500-7000); Neutrophils Percent Auto 57.7 % (50-75); Platelet Count 189 X10^3/uL (150-400); Red Blood Cell Count 4.27 X10^6/uL (4.0-5.2); Red Cell Distribution Width 12.9 % (11.6-14.8); White Blood Cell Count 5.5 X10^3/uL (4.5-11.0)
[2019-01-03 07:53] LABS: Alanine Aminotransferase 36 IU/L (9-52); Albumin 4.6 g/dL (3.5-5.0); Albumin Globulin Ratio 1.4 (1.0-2.8); Alkaline Phosphatase 107 U/L (38-126); Aspartate Aminotransferase 39 IU/L (14-36); BUN Creatinine Ratio 25.7 (6-22); Bilirubin Total 0.6 mg/dL (0.2-1.3); Blood Urea Nitrogen 18 mg/dL (7-17); Carbon Dioxide 33 mmol/L (22-32); Chloride 102 mmol/L (98-107); Cholesterol 221 mg/dL (140-199); Estimated Glomerular Filt Rate > 60.0 mL/min (>60); Globulin 3.2 g/dL (1.7-4.1); Glucose 103 mg/dL (80-110); HEMOLYSIS < 15 (0-50); Potassium 4.2 mmol/L (3.4-5.1); Sodium 140 mmol/L (137-145); Total Protein 7.8 g/dL (6.3-8.2); Triglycerides 158 mg/dL (35-150)
[2019-01-03 08:05] LABS: HDL Cholesterol 128 mg/dL (40-60); LDL Cholesterol Calculated 61 mg/dL (<100)
[2019-01-03 08:39] LABS: Free T4, Direct Thyroxine 1.22 ng/dL (0.78-2.19)
[2019-01-03 08:53] LABS: Thyroid Stimulating Hormone 2.16 uIU/mL (0.47-4.68)
== END ==
PROVIDERS: PCP Family Medicine; Visit Provider Family Medicine
DX: E03.9 Hypothyroidism, unspecified (principal); E78.5 Hyperlipidemia, unspecified
CPT/HCPCS: 36415; 80053; 80061; 84439; 84443; 85025

== ENCOUNTER → 2019-04-19 14:47 | Outpatient (CLI) | payer MEDICARE, SELFPAY | PROVIDERS: PCP Family Medicine; Visit Provider Family Medicine | DX: S81.802A Unspecified open wound, left lower leg, initial encounter (principal) | CPT/HCPCS: 11042; 99213 ==

== ENCOUNTER → 2019-04-26 09:36 | Outpatient (CLI) | payer MEDICARE, SELFPAY | PROVIDERS: PCP Family Medicine; Visit Provider Family Medicine | DX: S81.802A Unspecified open wound, left lower leg, initial encounter (principal) | CPT/HCPCS: 97597 ==

== ENCOUNTER → 2019-05-03 09:31 | Outpatient (CLI) | payer MEDICARE, SELFPAY | PROVIDERS: PCP Family Medicine; Visit Provider Family Medicine | DX: I87.2 Venous insufficiency (chronic) (peripheral) (principal); R60.0 Localized edema; L97.825 Non-pressure chronic ulcer of other part of left lower leg with muscle involvement without evidence of necrosis | CPT/HCPCS: 11042 ==

== ENCOUNTER → 2019-05-16 06:52 | Outpatient (CLI) | payer MEDICARE, SELFPAY ==
[2019-05-16 07:42] LABS: Add Manual Diff / Slide Review NO; Basophils Absolute Auto 0 /uL (0-100); Basophils Percent Auto 0.5 % (0-2); Eosinophils Absolute Auto 100 /uL (0-450); Eosinophils Percent Auto 1.7 % (2-4); Hematocrit 37.9 % (36-46); Hemoglobin 12.9 g/dL (12.0-16.0); Lymphocytes Absolute Auto 1100 /uL (1100-4500); Lymphocytes Percent Auto 23.4 % (25-40); Mean Corpuscular Hemoglobin 32.3 PG (26-34); Mean Corpuscular Volume 95.1 fL (80-100); Monocytes Absolute Auto 500 /uL (0-900); Monocytes Percent Auto 9.5 % (3-14); Neutrophils Absolute Auto 3100 /uL (1500-7000); Neutrophils Percent Auto 64.9 % (50-75); Platelet Count 212 X10^3/uL (150-400); Red Blood Cell Count 3.98 X10^6/uL (4.0-5.2); Red Cell Distribution Width 13.1 % (11.6-14.8); White Blood Cell Count 4.8 X10^3/uL (4.5-11.0)
[2019-05-16 07:55] LABS: Alanine Aminotransferase 28 IU/L (9-52); Albumin 4.5 g/dL (3.5-5.0); Albumin Globulin Ratio 1.6 (1.0-2.8); Alkaline Phosphatase 113 U/L (38-126); Aspartate Aminotransferase 36 IU/L (14-36); BUN Creatinine Ratio 31.3 (6-22); Bilirubin Total 0.5 mg/dL (0.2-1.3); Blood Urea Nitrogen 25 mg/dL (7-17); Calcium 9.5 mg/dL (8.4-10.2); Carbon Dioxide 32 mmol/L (22-32); Chloride 103 mmol/L (98-107); Cholesterol 208 mg/dL (140-199); Estimated Glomerular Filt Rate > 60.0 mL/min (>60); Globulin 2.9 g/dL (1.7-4.1); Glucose 99 mg/dL (80-110); HDL Cholesterol 94 mg/dL (40-60); HEMOLYSIS < 15 (0-50); LDL Cholesterol Calculated 95 mg/dL (<100); Sodium 141 mmol/L (137-145); Total Protein 7.4 g/dL (6.3-8.2); Triglycerides 96 mg/dL (35-150)
[2019-05-16 08:30] LABS: Thyroid Stimulating Hormone 5.08 uIU/mL (0.47-4.68)
== END ==
PROVIDERS: PCP Family Medicine; Visit Provider Family Medicine
DX: E78.5 Hyperlipidemia, unspecified (principal)
CPT/HCPCS: 36415; 80053; 80061; 84443; 85025

== ENCOUNTER → 2019-05-17 09:29 | Outpatient (CLI) | payer MEDICARE, SELFPAY | PROVIDERS: PCP Family Medicine; Visit Provider Family Medicine | DX: I87.2 Venous insufficiency (chronic) (peripheral) (principal); R60.0 Localized edema; L97.821 Non-pressure chronic ulcer of other part of left lower leg limited to breakdown of skin | CPT/HCPCS: 11042 ==

== ENCOUNTER → 2019-05-19 07:57 | Outpatient (CLI) | payer MEDICARE, SELFPAY | PROVIDERS: PCP Family Medicine; Visit Provider Family Medicine | DX: I87.2 Venous insufficiency (chronic) (peripheral) (principal); L97.821 Non-pressure chronic ulcer of other part of left lower leg limited to breakdown of skin | CPT/HCPCS: 29581 ==

== ENCOUNTER → 2019-05-24 13:10 | Outpatient (CLI) | payer MEDICARE, SELFPAY | PROVIDERS: PCP Family Medicine; Visit Provider Family Medicine | DX: I87.2 Venous insufficiency (chronic) (peripheral) (principal); L97.828 Non-pressure chronic ulcer of other part of left lower leg with other specified severity | CPT/HCPCS: 11042 ==

== ENCOUNTER → 2019-05-31 13:03 | Outpatient (CLI) | payer MEDICARE, SELFPAY | PROVIDERS: PCP Family Medicine; Visit Provider Family Medicine | DX: I87.2 Venous insufficiency (chronic) (peripheral) (principal); L97.828 Non-pressure chronic ulcer of other part of left lower leg with other specified severity | CPT/HCPCS: 11042; 29581 ==

== ENCOUNTER → 2019-06-07 08:44 | Outpatient (CLI) | payer MEDICARE, SELFPAY | PROVIDERS: PCP Family Medicine; Visit Provider Family Medicine | DX: I87.2 Venous insufficiency (chronic) (peripheral) (principal); L97.828 Non-pressure chronic ulcer of other part of left lower leg with other specified severity | CPT/HCPCS: 97597 ==

== ENCOUNTER → 2019-06-14 10:17 | Outpatient (CLI) | payer MEDICARE, SELFPAY | PROVIDERS: PCP Family Medicine; Visit Provider Family Medicine | DX: I87.2 Venous insufficiency (chronic) (peripheral) (principal); L97.821 Non-pressure chronic ulcer of other part of left lower leg limited to breakdown of skin | CPT/HCPCS: 97597 ==

== ENCOUNTER → 2019-06-28 08:48 | Outpatient (CLI) | payer MEDICARE, SELFPAY | PROVIDERS: PCP Family Medicine; Visit Provider Family Medicine | DX: I87.2 Venous insufficiency (chronic) (peripheral) (principal) | CPT/HCPCS: 99212; 99213 ==

== ENCOUNTER → 2019-08-13 08:32 | Outpatient (CLI) | payer MEDICARE, SELFPAY ==
[2019-08-13 10:44] LABS: Free T4, Direct Thyroxine 1.35 ng/dL (0.78-2.19)
[2019-08-13 10:58] LABS: Thyroid Stimulating Hormone 1.77 uIU/mL (0.47-4.68)
== END ==
PROVIDERS: PCP Family Medicine; Visit Provider Family Medicine
DX: E03.9 Hypothyroidism, unspecified (principal)
CPT/HCPCS: 36415; 84439; 84443

== ENCOUNTER → 2020-04-11 06:59 | Outpatient (CLI) | payer MEDICARE, SELFPAY ==
--- NOTE | 2020-04-11 | DI.MRI.S_ITS ---
PROCEDURE: MR STROKE Pre- and post-contrast brain MRI, non-contrast brain MR angiogram, pre- and postcontrast neck MR angiogram INDICATIONS: Transient cerebral ischemic attack, unspecified TECHNIQUE: Brain: Noncontrast axial T1 spin echo, axial T2 fast spin echo, sagittal and axial FLAIR, coronal T2 fast spin echo, axial gradient echo, axial diffusion and ADC through the brain. After the administration of contrast, axial 3D VIBE of the cranial vasculature and brain. Brain MRA: Non-contrast 3-D time of flight MR angiogram, with multiple uaohlsl-dbtqkqpjl-zwtiiwoukj (MIP) reformats performed. Neck MRA: Axial and sagittal TruFISP through the neck. Coronal dynamic MR angiogram during administration of contrast in the arterial and venous phases, with 3-dimenstional lwzcoua-ohonnccah-sivoevhvdx (MIP) reformats constructed from subtraction images. COMPARISON: [facility], , STROKE PROTOCOL, 08/22/2016, 7:19. FINDINGS: Image quality: Excellent. BRAIN: CSF spaces: Ventricles are normal in size and shape. Basal cisterns are patent. No extra-axial fluid collections. Brain: No intracranial bleeds or mass effects. Mauricio-white matter interface is normal. Diffusion weighted images show no acute ischemic insults. There is chronic microvascular atherosclerotic change in the deep white matter of each hemisphere, moderate, expected for the age. No evidence of interval stroke with encephalomalacia has developed from 2017. Brainstem appears normal. Normal intravascular flow voids are present. No abnormal intracranial enhancement. Skull and face: Calvarial marrow signal is normal. Orbits appear normal. Sinuses: Sinuses and mastoids are clear. BRAIN MR ANGIOGRAM: Anterior circulation: Intracranial internal carotid arteries are normal in size and enhancement. The flow within the paired anterior cerebral arteries is normal and symmetric. The flow within the middle cerebral arteries is normal and symmetric. The anterior communicating artery is seen. No stenoses, occlusions, or aneurysms. Posterior circulation: The visualized portions of the vertebral arteries demonstrate normal caliber, and join to form a normal appearing basilar artery. The flow within the posterior cerebral arteries is normal and symmetric. No stenoses, occlusions, or aneurysms. NECK MR ANGIOGRAM: Carotids: Great vessels demonstrate a conventional anatomy as they arise from the aortic arch. The origins of the common carotid arteries appear patent. The calibers and courses of both common carotid arteries are normal. The bifurcation regions appear normal bilaterally. The internal carotid arteries demonstrate normal course and caliber. Posterior circulation: The origins of the vertebral arteries appear patent. More superior portions of both vertebral arteries demonstrate normal course and caliber, and join to form a normal appearing basilar artery. Miscellaneous: Subclavian arteries appear patent. Pre-contrast images through the neck show no soft tissue abnormalities. IMPRESSION: BRAIN MRI: Age related microvascular atherosclerotic change in the deep white matter of each hemisphere, no acute or subacute ischemic injury is found. BRAIN MR ANGIOGRAM: Normal intracranial MR angiogram for age. NECK MR ANGIOGRAM: Normal cervical MR angiogram for age. Dictated by: Isrrael Mcclain M.D. on 04/11/2020 at 9:39 Approved by: Isrrael Mcclain M.D. on 04/11/2020 at 9:44
== END ==
PROVIDERS: PCP Family Medicine; Referring Provider Family Medicine; Visit Provider Family Medicine
DX: G45.9 Transient cerebral ischemic attack, unspecified (principal)
CPT/HCPCS: 70548; 70553; A9579

== ENCOUNTER → 2020-04-16 09:41 | Outpatient (CLI) | payer MEDICARE, SELFPAY ==
--- NOTE | 2020-05-11 15:43 | P.HOLT.S_ITS ---
[employer] Report Referral & Results Date Patient Seen: 04/16/20 Requesting provider: Viky Seymour Indication: TIA Duration of monitoring (days): 14 Diary information: There were only 1 patient diary entry and no patient triggered events noted Patient diary entry associated with sinus rhythm and ventricular ectopic beats Data: Minimum heart rate identified was 50 beats per minute at 05:00 on 04/23/2020 Maximum sinus heart rate was 119 beats per minute at 15:42 on 04/25/2020 Maximum overall heart rate was 162 beats per minute at 16:45 on 04/25/2020 during a run of SVT Less than 1% of identified beats were supraventricular ectopic in origin Approximately 1.1% of identified beats were ventricular ectopic in origin including a 51.2nd run of ventricular trigeminy Patient had a total of 3 runs of nonsustained ventricular tachycardia the longest being 4 beats at an average rate of 101 beats per minute which suggests an atypical source of dysrhythmia There was 1 run of SVT lasting 17 beats at a rate of 162 beats per minute Impression: Occasional PVCs with rare more significant cardiac dysrhythmias as above Clinical correlation suggested
== END ==
PROVIDERS: Family Provider Family Medicine; PCP Family Medicine; Referring Provider Family Medicine; Visit Provider Family Medicine
DX: Z86.73 Personal history of transient ischemic attack (TIA), and cerebral infarction without residual deficits (principal)
CPT/HCPCS: 0296T; 0298T

== ENCOUNTER → 2020-05-29 06:01 | Outpatient (CLI) | payer MEDICARE, SELFPAY ==
--- NOTE | 2020-05-29 | DI.ECHO.S_ITS ---
[facility]---------+ [facility] +---------+ : : [address] : : : : [id number] : : : : Phone: [phone]---------+ Echocardiogram Report + + :Name: GORDO ALFRED Study Date: 05/29/2020 Height: 66 in : :[facility] Weight: 130 lb : : Gender: Female BSA: 1.7 m2 : :: 1935 Age: 84 yrs BP: 156/89 mmHg: :Reason For Study: afib : :Ordering Physician: RAPHAEL, : :GORDO Performed By: Cass Luque : :Referring: GORDO LIM : + + Interpretation Summary Normal sinus rhythm with wide QRS complexes c/w LBBB Normal LV size and wall thickness; there is septal dyssynchrony. Otherwise normal wall motion. EF is 50-55%. Abnormal LV relaxation with normal LV filling pressure. No significant valvular abnormalities. Aortic valve leaflets are mildly thickened and calcified with mild associated AI. Mitral valve leaflets are normal with central mild-moderate MR. Compared to prior study 09/09/2016 dyssynchrony is more pronounced. Procedure: A two-dimensional transthoracic echocardiogram with color flow and Doppler was performed. The study quality was technically adequate. Comparison is made with the echocardiogram of 09/09/2016. The patient was in sinus rhythm with heart rates between 72-78 bpm during the exam. Left Ventricle: The left ventricle is normal in size and wall thickness. The ejection fraction is estimated to be 50-55%. Right Ventricle: The right ventricle is normal in size and function. Atria: The left atrial size is normal. Right atrial size is normal. There is no Doppler evidence for an interatrial shunt. The interatrial septum is hypermobile. Mitral Valve: The mitral valve is normal in structure and function. There is mild to moderate mitral regurgitation. Aortic Valve: The aortic valve is trileaflet. The aortic valve is mildly calcified. There is no aortic valve stenosis. There is mild aortic regurgitation. Tricuspid Valve: The tricuspid valve is normal in structure and function. The right ventricular systolic pressure is estimated to be at least 28 mmHg based on an estimated right atrial pressure of 3 mm Hg. There is mild tricuspid regurgitation. Pulmonic Valve: The pulmonic valve is not well visualized. There is no pulmonic valvular regurgitation. Great Vessels: The aortic root is normal size. The ascending aorta could not be visualized. The IVC is of normal diameter and collapses greater than 50% with a sniff. This suggests a low right atrial pressure of 3 mm Hg. Pericardium/ Pleura There is no pericardial effusion. There is no pleural effusion. MMode/2D Measurements & Calculations LVIDd: 5.2 cm LVOT diam: 2.1 cm LVIDs: 4.0 cm Ao root diam: 3.3 cm FS: 23.1 % Ao Arch Diam (Prox Trans): 3.2 cm EPSS: 1.7 cm IVSd: 0.84 cm LVPWd: 0.86 cm LV calixto. diameter/BSA (cm/m^2): 3.1 LV sys. diameter/BSA (cm/m^2): 2.4 LA A2 area: 14.9 cm2 RA long axis: 4.1 cm LA A4 area: 14.9 cm2 RA area: 11.3 cm2 LA length (vol): 3.7 cm RA vol: 26.1 ml LA vol: 50.9 ml RA : 15.6 ml/m2 LA vol index: 30.5 ml/m2 IVC diam: 0.92 cm RVD1 (basal): 3.4 cm TAPSE: 1.9 cm Doppler Measurements & Calculations Ao V2 max: 119.3 cm/sec LVOT Max Tyree: 76.6 cm/sec Ao V2 mean: 83.8 cm/sec LV V1 max P.3 mmHg Ao max P.7 mmHg LV V1 VTI: 15.4 cm Ao mean P.1 mmHg TIFFANY(I,D): 2.2 cm2 Ao V2 VTI: 25.4 cm TIFFANY(V,D): 2.3 cm2 sev ratio: 0.61 TIFFANY indexed to BSA (cm^2/m^2): 1.3 MV E max tyree: 45.9 cm/sec TR max tyree: 245.4 cm/sec MV A max tyree: 104.6 cm/sec TR max P.9 mmHg MV E/A: 0.44 PA V2 max: 76.4 cm/sec Med Peak E' Tyree: 3.7 cm/sec PA V2 mean: 48.8 cm/sec E/E' med: 12.5 PA mean P.2 mmHg Lat Peak E' Tyree: 10.6 cm/sec PA Accel Time: 0.11 sec E/E' lat: 4.3 E/e' average: 8.4 MV dec time: 0.29 sec SV(LVOT): 55.7 ml Electronically signed by: Alicia Boyle M.D. on [place] Physician:05/29/2020 10:04 PM
== END ==
PROVIDERS: Family Provider Family Medicine; PCP Family Medicine; Referring Provider Family Medicine; Visit Provider Family Medicine
DX: I08.3 Combined rheumatic disorders of mitral, aortic and tricuspid valves (principal); I48.91 Unspecified atrial fibrillation
CPT/HCPCS: 93306

== ENCOUNTER → 2020-08-20 08:12 | Outpatient (CLI) | payer MEDICARE, SELFPAY ==
[2020-08-20 10:10] LABS: BUN Creatinine Ratio 27.4 (6-22); Blood Urea Nitrogen 20 mg/dL (7-17); Calcium 9.7 mg/dL (8.4-10.2); Carbon Dioxide 32 mmol/L (22-32); Chloride 103 mmol/L (98-107); Estimated Glomerular Filt Rate > 60.0 mL/min (>60); Glucose 163 mg/dL (80-110); HEMOLYSIS < 15 (0-50); Potassium 4.6 mmol/L (3.4-5.1); Sodium 140 mmol/L (137-145)
== END ==
PROVIDERS: Family Provider Family Medicine; PCP Family Medicine; Referring Provider Physician Assistant; Visit Provider Physician Assistant
DX: I47.2 Ventricular tachycardia (principal)
CPT/HCPCS: 36415; 80048

== ENCOUNTER → 2020-08-29 09:50 | Outpatient (CLI) | payer MEDICARE, SELFPAY ==
[2020-08-29 11:02] LABS: COVID19 -Nasal RAPID Negative (Negative)
== END ==
PROVIDERS: Family Provider Family Medicine; PCP Family Medicine; Visit Provider Nurse Practitioner Family
DX: Z01.812 Encounter for preprocedural laboratory examination (principal); Z20.822 Contact with and (suspected) exposure to COVID-19; Z23 Encounter for immunization
CPT/HCPCS: 0011A; 87635; 91301; C9803

== ENCOUNTER → 2020-08-29 13:35 | Outpatient (CLI) | payer MEDICARE, SELFPAY ==
[2020-08-29] MEDS: COVID-19 VACC #1, MRNA(MOD) 100 MCG/0.5 ML VIAL IM (13:41)
== END ==
PROVIDERS: Family Provider Family Medicine; PCP Family Medicine; Visit Provider Internal Medicine
DX: Z23 Encounter for immunization (principal)
CPT/HCPCS: 0011A; 91301

== ENCOUNTER → 2020-08-31 10:31 | Outpatient (CLI) | payer MEDICARE, SELFPAY ==
--- NOTE | 2020-08-31 17:46 | DI.NM.S_ITS ---
DATE OF SERVICE: 08/31/2020 PROCEDURE: Pharmacological perfusion study. INDICATION: Ventricular tachycardia, underlying left bundle branch block. RADIOPHARMACEUTICAL: 26.2 millicurie technetium-99m Myoview IV was injected at stress and 9.2 millicurie technetium-99m Myoview IV was injected at rest. CARDIAC STRESS: This is a one-day protocol study. The patient underwent IV Lexiscan perfusion study under the supervision of attending staff, as per standard protocol. The patient remained hemodynamically stable. No significant symptoms were reported. Baseline EKG revealed sinus rhythm with left bundle branch block and secondary repolarization changes. During stress, no new convincing ischemic changes. There were occasional PVCs. No sustained ventricular tachycardia. RAW DATA: Breast shadow was seen. GATED STUDY: Resting LV ejection fraction 68 percent and stress LV ejection fraction 77 percent without any significant wall motion abnormalities. Resting end-diastolic volume 73 mL. TID ratio 0.91, which is within normal limits. Lung/heart ratio 0.34, which is within normal limits. MYOCARDIAL PERFUSION: Please note, there are no prone images. Stress supine and resting supine images were compared to each other. Resting supine images revealed mildly decreased perfusion of apex. However, stress supine images revealed normal myocardial perfusion. CONCLUSION: I will call this study a normal myocardial perfusion study, as stress supine images revealed normal myocardial perfusion. Preserved left ventricular function. Overall, this is a low-risk myocardial perfusion study. GriceldaViky - MIKE/kerri/lc doc#: [id number]/job#: [id number] dd: 08/31/2020 17:33:00 dt: 08/31/2020 17:40:00 DICTATING MD/COPIES TO: Miley Gomez MD COPIES MNE: FAYE;
== END ==
PROVIDERS: Family Provider Family Medicine; PCP Family Medicine; Referring Provider Physician Assistant; Visit Provider Physician Assistant
DX: I47.2 Ventricular tachycardia (principal); I44.7 Left bundle-branch block, unspecified
CPT/HCPCS: 78452; 93017; A9502; J2785

== ENCOUNTER → 2020-09-27 08:18 | Outpatient (CLI) | payer MEDICARE, SELFPAY ==
[2020-09-27] MEDS: COVID-19 VACC #2, MRNA(MOD) 100 MCG/0.5 ML VIAL IM (08:26)
== END ==
PROVIDERS: Family Provider Family Medicine; PCP Family Medicine; Visit Provider Internal Medicine
DX: Z23 Encounter for immunization (principal)
CPT/HCPCS: 0012A; 91301

== ENCOUNTER → 2021-12-19 12:43 | Outpatient (CLI) | payer MEDICARE, SELFPAY | PROVIDERS: Family Provider Family Medicine; PCP Family Medicine; Referring Provider Family Medicine; Visit Provider Family Medicine | DX: M81.0 Age-related osteoporosis without current pathological fracture (principal); Z78.0 Asymptomatic menopausal state | CPT/HCPCS: 77080 ==

== ENCOUNTER 2022-04-01 09:45 | Outpatient (RCR) | payer MEDICARE, SELFPAY ==
--- NOTE | 2021-10-30 16:02 | PT.OIE ---
Current Diagnoses Difficulty in walking, not elsewhere classified (10/30/21) Unsteadiness on feet (10/30/21) Abnormal posture (10/30/21) Weakness (10/30/21) Past Medical History (Last Updated 07/10/18 @ 11:33 by Briana Cramer DO) Patent foramen ovale Visit Care Team Role Provider Type Viky Seymour MD Attending Provider Physician Family Provider Primary Care Provider Referring Provider Specialty: Family Practice Address: [address] [place] [address], [facility] [place], [place], [facility] Email: [email or web address] Physical Therapy Initial Evaluation PT-OP-A Visit Information Start: 10/29/21 07:41 Freq: Status: Active Protocol: Document 10/30/21 08:22 [facility] (Rec: 10/30/21 12:09 [facility] [id number]) Out-Patient Physical Therapy Visit Information Visit Information Visit Type Initial Evaluation Visit Note 08/05 Visit Start Time 08:22 Visit Stop Time 09:05 Total Visit Minutes 43 Visit Number 1 Number of JUTE BAG SEWER Visits 0 PT-OP-B Current Condition Start: 10/29/21 07:41 Freq: Status: Active Protocol: Document 10/30/21 08:22 [facility] (Rec: 10/30/21 12:09 [facility] [id number]) Current Condition History of Current Condition Current Complaints falls, weakness History of Current Condition Pt reports since her stroke she has been weaker. Stroke was about 10 years ago and has done PT on/off which helps her but then she declines again. She had to hire someone for cleaning about 1 year ago d/t pt noting it just takes too long to do anything. Pt reports a couple years ago, she fell whenw alking with her friends so they won't let her walk with them anymore. She has not been in the garden for 3 years because se will bend down to picker feeder a weed and fall over. She reports she is falling more recently. She fell 3 times in the last year. One time, she fell walking backwards down the last few steps and miscounted how many steps so seh fell over. One time, she fell backing up when squeezing between a chair. Pt reports she has to be very careful walking backwards. won't walk around the block w/her because he likes to go his own pace. She was doing the strength and balance class at [facility]. Pt reports she developed a sore ( red area) on her R foot at bottom of 5th MT and she got custom insoles. She still has to wear a bandage on it to keep it from hurting. Pt reports R hip has been on/off giving her trouble but unsure what causes pain. Some days it doesn't hurt at all and sometimes it does off/on. Pt does have macular degeneration and that does liimt her too. Pt reports ever since COVID vaccine has to be care when getting up otherwise gets dizzy Treatment Goals Patient/Caregiver Goals Be able to walk again by herself, be able to do some things around the house (be able to make bed better, be able to snap lids of containers, cook more, some other clean up) PT-OP-D Balance Start: 10/29/21 07:41 Freq: Status: Active Protocol: Document 10/30/21 08:22 [facility] (Rec: 10/30/21 12:09 [facility] [id number]) Balance Tests Hernandez Balance Test Hernandez Balance Test Score 41 Single Limb Standing Single Limb- Right 2 Single Limb- Left 2 PT-OP-E Functional Tests Start: 10/29/21 07:41 Freq: Status: Active Protocol: Document 10/30/21 08:22 [facility] (Rec: 10/30/21 12:09 [facility] [id number]) Functional Tests 30 Second Sit to Stand Test Score 4x Dynamic Gait Index (DGI) Score 14 Five Times Sit to Stand Test Score unable to get 5 w/using UEs- 28 sec after 4 but after kept falling back Comments when attempting to stand Functional Gait Assessment Score 12 PT-OP-G Mobility & Gait Start: 10/29/21 07:41 Freq: Status: Active Protocol: Document 10/30/21 08:22 [facility] (Rec: 10/30/21 12:09 [facility] [id number]) OP Gait Assessment Comments Gait Comments Pt amb slowly w/dec push off and dec overall stability. PT-OP-J Posture/Palpation/Skin Start: 10/29/21 07:41 Freq: Status: Active Protocol: Document 10/30/21 08:22 [facility] (Rec: 10/30/21 15:52 [facility] [id number]) Posture Evaluation Comments Posture Comments inc kyphosis & fwd head PT-OP-M Strength Start: 10/29/21 07:41 Freq: Status: Active Protocol: Document 10/30/21 08:22 [facility] (Rec: 10/30/21 12:09 [facility] [id number]) Hip Strength Hip Manual Muscle Testing Right Flexion (L2) 3+ Fair+ External Rotation 3+ Fair+ Internal Rotation 3+ Fair+ Left Flexion (L2) 3+ Fair+ External Rotation 3+ Fair+ Internal Rotation 3+ Fair+ Knee Strength Knee Manual Muscle Testing Right Flexion (S2) 4 Good Extension (L3) 4 Good Left Flexion (S2) 4 Good Extension (L3) 4- Good- Ankle/Foot Strength Ankle and Foot Manual Muscle Testing Right Dorsiflexion (L4) 5 Normal Plantarflexion (S1) 4+ Good+ Left Dorsiflexion (L4) 5 Normal Plantarflexion (S1) 4+ Good+ Comments PF tested seated PT-OP-T Assessment and Plan Start: 10/29/21 07:41 Freq: Status: Active Protocol: Document 10/30/21 08:22 [facility] (Rec: 10/30/21 12:09 [facility] [id number]) Physical Therapy Assessment Rehab Potential Rehabilitation Potential Good Evaluation Complexity Number of Personal Factors/Comorbidities 3 or More Number of Body Systems Impaired 4 or More Clinical Presentation at Evaluation Evolving Impairments Impairments Activity Tolerance,Balance, Functional Activities, Functional Mobility,Gait,Pain, Posture,ROM,Soft Tissue Mobility,Strength Goals activities Mcfp Goal (LTG) Pt will report feeling stronger so she is able to do more household tasks in a better manner (making the bed, cooking, etc) without excessive fatigue LTG Duration 01/29/22 Dynamic balance Impairment DGI 1424; FGA 07/25 Short Term Goal (STG) Pt will improve DGI score to at least 20 to show dec risk for falls. STG Duration 12/30/21 Square Dance Caller Goal (LTG) Pt will improve FGA score to at least 22/30 to show dec fall risk. LTG Duration 01/29/22 HERNANDEZ Short Term Goal (STG) pt will improve HERNANDEZ score to at least 46/56 to show she is safe ambulator w/o AD and is less likely to fall. STG Duration 12/08/21 Square Dance Caller Goal (LTG) pt will improve HERNANDEZ score to at least 50/56 to show she is safe ambulator w/o AD outdoors and in the community. LTG Duration 01/29/22 sit to stand Short Term Goal (STG) Pt will be able to complete 5x sit to stand test. STG Duration 12/08/21 Square Dance Caller Goal (LTG) Pt will be able to do at least 9 sit to stands in 30 sec to show improved strength & balance. LTG Duration 01/29/22 Assessment Summary Assessment pt presents w/recent worsening in balance and strength w/3 falls in the past year w/ backing up being a common theme. She shows high fall risk based on scores on all standardized testing (DGI, HERNANDEZ, FGA & sit to stands) and has dec LE strength overall. She is walking w/unsteady gait w/slower speed at this time. She would benefit from skilled PT to work on strength and balance and return pt to more active lifestyle w/o feeling/ being unsafe. Physical Therapy Plan Frequency and Duration Frequency of Treatment 2x/Week Duration of Treatment 3 months Plan of Care Start Date 10/30/21 Plan of Care End Date 01/29/22 Therapeutic Interventions Therapeutic Interventions Aquatic Therapy,Balance Training,Gait Training,Home Exercise Program,Manual Therapy,Neuromuscular Re- education,Patient/Caregiver Education,Self-Care/Home Management,Soft Tissue Mobilization,Taping, Therapeutic Activities, Therapeutic Exercises Modalities Cold Pack/Ice Massage,Hot Packs Next Visit Focus/Plan Next Note Type Treatment Note Next Visit Plan 6 min walk test, balance & strength HEP (sit to stands, SLS, tandem stance, standing marches & hip abd), balance activities in clinic
--- NOTE | 2021-10-30 16:03 | PT.OPPOC ---
Physical, Occupational & Speech Therapy At [facility] Current Diagnoses Difficulty in walking, not elsewhere classified (10/30/21) Unsteadiness on feet (10/30/21) Abnormal posture (10/30/21) Weakness (10/30/21) Visit Care Team Role Provider Type Viky Seymour MD Attending Provider Physician Family Provider Primary Care Provider Referring Provider Specialty: Family Practice Address: [address] [place] [address], [facility] [place], [address] Email: [email or web address] Plan Of Care PT-OP-T Assessment and Plan Start: 10/29/21 07:41 Freq: Status: Active Protocol: Document 10/30/21 08:22 [facility] (Rec: 10/30/21 12:09 [facility] [id number]) Physical Therapy Assessment Rehab Potential Rehabilitation Potential Good Evaluation Complexity Number of Personal Factors/Comorbidities 3 or More Number of Body Systems Impaired 4 or More Clinical Presentation at Evaluation Evolving Impairments Impairments Activity Tolerance,Balance, Functional Activities, Functional Mobility,Gait,Pain, Posture,ROM,Soft Tissue Mobility,Strength Goals activities Inspector Mechanical Goal (LTG) Pt will report feeling stronger so she is able to do more household tasks in a better manner (making the bed, cooking, etc) without excessive fatigue LTG Duration 01/29/22 Dynamic balance Impairment DGI 14/24; FGA 12/30 Short Term Goal (STG) Pt will improve DGI score to at least 20 to show dec risk for falls. STG Duration 12/30/21 Mcfp Goal (LTG) Pt will improve FGA score to at least 22/30 to show dec fall risk. LTG Duration 01/29/22 HERNANDEZ Short Term Goal (STG) pt will improve HERNANDEZ score to at least 46/56 to show she is safe ambulator w/o AD and is less likely to fall. STG Duration 12/08/21 Mcfp Goal (LTG) pt will improve HERNANDEZ score to at least 50/56 to show she is safe ambulator w/o AD outdoors and in the community. LTG Duration 01/29/22 sit to stand Short Term Goal (STG) Pt will be able to complete 5x sit to stand test. STG Duration 12/08/21 Inspector Mechanical Goal (LTG) Pt will be able to do at least 9 sit to stands in 30 sec to show improved strength & balance. LTG Duration 01/29/22 Assessment Summary Assessment pt presents w/recent worsening in balance and strength w/3 falls in the past year w/ backing up being a common theme. She shows high fall risk based on scores on all standardized testing (DGI, HERNANDEZ, FGA & sit to stands) and has dec LE strength overall. She is walking w/unsteady gait w/slower speed at this time. She would benefit from skilled PT to work on strength and balance and return pt to more active lifestyle w/o feeling/ being unsafe. Physical Therapy Plan Frequency and Duration Frequency of Treatment 2x/Week Duration of Treatment 3 months Plan of Care Start Date 10/30/21 Plan of Care End Date 01/29/22 Therapeutic Interventions Therapeutic Interventions Aquatic Therapy,Balance Training,Gait Training,Home Exercise Program,Manual Therapy,Neuromuscular Re- education,Patient/Caregiver Education,Self-Care/Home Management,Soft Tissue Mobilization,Taping, Therapeutic Activities, Therapeutic Exercises Modalities Cold Pack/Ice Massage,Hot Packs Next Visit Focus/Plan Next Note Type Treatment Note Next Visit Plan 6 min walk test, balance & strength HEP (sit to stands, SLS, tandem stance, standing marches & hip abd), balance activities in clinic Plan of Care Dates Plan of Care Start Date 10/30/21 Plan of Care End Date 01/29/22 Electronically Signed by: Annetta Harris, PT 10/30/21 [id number] Please Sign and Return: I have reviewed this Plan of Care and certify that the skilled therapy services above are required to meet the patient?s needs. Physician Signature Date Printed Name and Credentials Clinical Instructor Signature Printed Name and Credentials
--- NOTE | 2021-11-04 09:48 | PT.OTN ---
Current Diagnoses Difficulty in walking, not elsewhere classified (11/04/21) Unsteadiness on feet (11/04/21) Abnormal posture (11/04/21) Weakness (11/04/21) Physical Therapy Treatment Note PT-OP-A Visit Information Start: 10/29/21 07:41 Freq: Status: Active Protocol: Document 11/04/21 09:17 [facility] (Rec: 11/04/21 09:48 [facility] [id number]) Out-Patient Physical Therapy Visit Information Visit Information Visit Type Treatment Note Visit Note 09/05 Visit Start Time 09:05 Visit Stop Time 09:45 Total Visit Minutes 40 Visit Number 2 Number of RANCH HELPER Visits 0 PT-OP-B Current Condition Start: 10/29/21 07:41 Freq: Status: Active Protocol: Document 10/30/21 08:22 [facility] (Rec: 10/30/21 12:09 [facility] [id number]) Current Condition History of Current Condition Current Complaints falls, weakness History of Current Condition Pt reports since her stroke she has been weaker. Stroke was about 10 years ago and has done PT on/off which helps her but then she declines again. She had to hire someone for cleaning about 1 year ago d/t pt noting it just takes too long to do anything. Pt reports a couple years ago, she fell whenw alking with her friends so they won't let her walk with them anymore. She has not been in the garden for 3 years because [facility] will bend down to pick up driver a weed and fall over. She reports she is falling more recently. She fell 3 times in the last year. One time, she fell walking backwards down the last few steps and miscounted how many steps so seh fell over. One time, she fell backing up when squeezing between a chair. Pt reports she has to be very careful walking backwards. won't walk around the block w/her because he likes to go his own pace. She was doing the strength and balance class at [facility]. Pt reports she developed a sore ( red area) on her R foot at bottom of 5th MT and she got custom insoles. She still has to wear a bandage on it to keep it from hurting. Pt reports R hip has been on/off giving her trouble but unsure what causes pain. Some days it doesn't hurt at all and sometimes it does off/on. Pt does have macular degeneration and that does liimt her too. Pt reports ever since COVID vaccine has to be care when getting up otherwise gets dizzy Treatment Goals Patient/Caregiver Goals Be able to walk again by herself, be able to do some things around the house (be able to make bed better, be able to snap lids of containers, cook more, some other clean up) PT-OP-C Subjective Start: 10/29/21 07:41 Freq: Status: Active Protocol: Document 11/04/21 09:17 [facility] (Rec: 11/04/21 09:48 [facility] [id number]) OP-PT Subjective Patient Comments Patient Comments no new complaints PT-OP-D Balance Start: 10/29/21 07:41 Freq: Status: Active Protocol: Document 10/30/21 08:22 [facility] (Rec: 10/30/21 12:09 [facility] [id number]) Balance Tests Hernandez Balance Test Hernandez Balance Test Score 41 Single Limb Standing Single Limb- Right 2 Single Limb- Left 2 PT-OP-E Functional Tests Start: 10/29/21 07:41 Freq: Status: Active Protocol: Document 10/30/21 08:22 [facility] (Rec: 10/30/21 12:09 [facility] [id number]) Functional Tests 30 Second Sit to Stand Test Score 4x Dynamic Gait Index (DGI) Score 14 Five Times Sit to Stand Test Score unable to get 5 w/using UEs- 28 sec after 4 but after kept falling back Comments when attempting to stand Functional Gait Assessment Score 12 PT-OP-G Mobility & Gait Start: 10/29/21 07:41 Freq: Status: Active Protocol: Document 10/30/21 08:22 [facility] (Rec: 10/30/21 12:09 [facility] [id number]) OP Gait Assessment Comments Gait Comments Pt amb slowly w/dec push off and dec overall stability. PT-OP-J Posture/Palpation/Skin Start: 10/29/21 07:41 Freq: Status: Active Protocol: Document 10/30/21 08:22 [facility] (Rec: 10/30/21 15:52 [facility] [id number]) Posture Evaluation Comments Posture Comments inc kyphosis & fwd head PT-OP-M Strength Start: 10/29/21 07:41 Freq: Status: Active Protocol: Document 10/30/21 08:22 [facility] (Rec: 10/30/21 12:09 [facility] [id number]) Hip Strength Hip Manual Muscle Testing Right Flexion (L2) 3+ Fair+ External Rotation 3+ Fair+ Internal Rotation 3+ Fair+ Left Flexion (L2) 3+ Fair+ External Rotation 3+ Fair+ Internal Rotation 3+ Fair+ Knee Strength Knee Manual Muscle Testing Right Flexion (S2) 4 Good Extension (L3) 4 Good Left Flexion (S2) 4 Good Extension (L3) 4- Good- Ankle/Foot Strength Ankle and Foot Manual Muscle Testing Right Dorsiflexion (L4) 5 Normal Plantarflexion (S1) 4+ Good+ Left Dorsiflexion (L4) 5 Normal Plantarflexion (S1) 4+ Good+ Comments PF tested seated PT-OP-Q Treatments Start: 10/29/21 07:41 Freq: Status: Active Protocol: Document 11/04/21 09:17 [facility] (Rec: 11/04/21 09:48 [facility] [id number]) Cardio Equipment Recumbent Stepper (Sci-Fit) Duration (Minutes) 6 Resistance 4 Seat Position 11 Gym Equipment Shuttle Recovery Bilateral Squats Resistance 75# Shuttle Recovery Platform Stable Reps/Time 2x15 Shuttle Balance 2 Details blue clips Comments Fwd & side: WBOS fwd: NBOS & staggered stance B Therapeutic Exercises Standing Exercises heel raises Side bilateral Reps/Minutes 20 sit to stand Side bilateral Reps/Minutes 10 Comments no hands hip ext Side bilateral Reps/Minutes 15 hip abd Side bilateral Reps/Minutes 15 Neuro Re-Education Treatment Balance Activities balance board Comments 1.fwd/back tilts 2. side/side wt shifts 3.balance fwd & side trials Tandem walk Details stance trials B 2 Details hurdles x6 Comments 1.fwd x8 step thru 2. sidestep x2 B 1 Details SLS B trials PT-OP-T Assessment and Plan Start: 10/29/21 07:41 Freq: Status: Active Protocol: Document 11/04/21 09:17 [facility] (Rec: 11/04/21 09:48 [facility] [id number]) Physical Therapy Assessment Goals activities Nursing Home Goal (LTG) Pt will report feeling stronger so she is able to do more household tasks in a better manner (making the bed, cooking, etc) without excessive fatigue LTG Duration 01/29/22 Dynamic balance Impairment DGI 14/24; FGA 1230 Short Term Goal (STG) Pt will improve DGI score to at least 20 to show dec risk for falls. STG Duration 12/30/21 Clinical Account Manager Goal (LTG) Pt will improve FGA score to at least 22/30 to show dec fall risk. LTG Duration 01/29/22 HERNANDEZ Short Term Goal (STG) pt will improve HERNANDEZ score to at least 46/56 to show she is safe ambulator w/o AD and is less likely to fall. STG Duration 12/08/21 Clinical Account Manager Goal (LTG) pt will improve HERNANDEZ score to at least 50/56 to show she is safe ambulator w/o AD outdoors and in the community. LTG Duration 01/29/22 sit to stand Short Term Goal (STG) Pt will be able to complete 5x sit to stand test. STG Duration 12/08/21 Clinical Account Manager Goal (LTG) Pt will be able to do at least 9 sit to stands in 30 sec to show improved strength & balance. LTG Duration 01/29/22 Assessment Summary Assessment Pt tolerated exercises well with report of fatigue after exercises. She is challenged by all balance activities and requires cues to dec rail use while in session to try to work balance while PT here to help w/gait belt. Physical Therapy Plan Frequency and Duration Frequency of Treatment 2x/Week Duration of Treatment 3 months Plan of Care Start Date 10/30/21 Plan of Care End Date 01/29/22 Next Visit Focus/Plan Next Note Type Treatment Note Next Visit Plan 6 min walk, review exercises, and balance activities.
--- NOTE | 2021-11-06 09:47 | PT.OTN ---
Current Diagnoses Difficulty in walking, not elsewhere classified (11/06/21) Unsteadiness on feet (11/06/21) Abnormal posture (11/06/21) Weakness (11/06/21) Physical Therapy Treatment Note PT-OP-A Visit Information Start: 10/29/21 07:41 Freq: Status: Active Protocol: Document 11/06/21 09:12 [facility] (Rec: 11/06/21 09:47 [facility] [id number]) Out-Patient Physical Therapy Visit Information Visit Information Visit Type Treatment Note Visit Note 10/03 Visit Start Time 09:07 Visit Stop Time 09:45 Total Visit Minutes 38 Visit Number 3 Number of CANAL EQUIPMENT MAINTENANCE SUPERVISOR Visits 0 PT-OP-B Current Condition Start: 10/29/21 07:41 Freq: Status: Active Protocol: Document 10/30/21 08:22 [facility] (Rec: 10/30/21 12:09 [facility] [id number]) Current Condition History of Current Condition Current Complaints falls, weakness History of Current Condition Pt reports since her stroke she has been weaker. Stroke was about 10 years ago and has done PT on/off which helps her but then she declines again. She had to hire someone for cleaning about 1 year ago d/t pt noting it just takes too long to do anything. Pt reports a couple years ago, she fell whenw alking with her friends so they won't let her walk with them anymore. She has not been in the garden for [address] [facility] will bend down to coal picker a weed and fall over. She reports she is falling more recently. She fell 3 times in the last year. One time, she fell walking backwards down the last few steps and miscounted how many steps so seh fell over. One time, she fell backing up when squeezing between a chair. Pt reports she has to be very careful walking backwards. won't walk around the block w/her because he likes to go his own pace. She was doing the strength and balance class at [facility]. Pt reports she developed a sore ( red area) on her R foot at bottom of 5th MT and she got custom insoles. She still has to wear a bandage on it to keep it from hurting. Pt reports R hip has been on/off giving her trouble but unsure what causes pain. Some days it doesn't hurt at all and sometimes it does off/on. Pt does have macular degeneration and that does liimt her too. Pt reports ever since COVID vaccine has to be care when getting up otherwise gets dizzy Treatment Goals Patient/Caregiver Goals Be able to walk again by herself, be able to do some things around the house (be able to make bed better, be able to snap lids of containers, cook more, some other clean up) PT-OP-C Subjective Start: 10/29/21 07:41 Freq: Status: Active Protocol: Document 11/06/21 09:12 [facility] (Rec: 11/06/21 09:47 [facility] [id number]) OP-PT Subjective Patient Comments Patient Comments Pt reports she felt okay after last session. PT-OP-D Balance Start: 10/29/21 07:41 Freq: Status: Active Protocol: Document 10/30/21 08:22 [facility] (Rec: 10/30/21 12:09 [facility] [id number]) Balance Tests Hernandez Balance Test Hernandez Balance Test Score 41 Single Limb Standing Single Limb- Right 2 Single Limb- Left 2 PT-OP-E Functional Tests Start: 10/29/21 07:41 Freq: Status: Active Protocol: Document 10/30/21 08:22 [facility] (Rec: 10/30/21 12:09 [facility] [id number]) Functional Tests 30 Second Sit to Stand Test Score 4x Dynamic Gait Index (DGI) Score 14 Five Times Sit to Stand Test Score unable to get 5 w/using UEs- 28 sec after 4 but after kept falling back Comments when attempting to stand Functional Gait Assessment Score 12 PT-OP-G Mobility & Gait Start: 10/29/21 07:41 Freq: Status: Active Protocol: Document 10/30/21 08:22 [facility] (Rec: 10/30/21 12:09 [facility] [id number]) OP Gait Assessment Comments Gait Comments Pt amb slowly w/dec push off and dec overall stability. PT-OP-J Posture/Palpation/Skin Start: 10/29/21 07:41 Freq: Status: Active Protocol: Document 10/30/21 08:22 [facility] (Rec: 10/30/21 15:52 [facility] [id number]) Posture Evaluation Comments Posture Comments inc kyphosis & fwd head PT-OP-M Strength Start: 10/29/21 07:41 Freq: Status: Active Protocol: Document 10/30/21 08:22 [facility] (Rec: 10/30/21 12:09 [facility] [id number]) Hip Strength Hip Manual Muscle Testing Right Flexion (L2) 3+ Fair+ External Rotation 3+ Fair+ Internal Rotation 3+ Fair+ Left Flexion (L2) 3+ Fair+ External Rotation 3+ Fair+ Internal Rotation 3+ Fair+ Knee Strength Knee Manual Muscle Testing Right Flexion (S2) 4 Good Extension (L3) 4 Good Left Flexion (S2) 4 Good Extension (L3) 4- Good- Ankle/Foot Strength Ankle and Foot Manual Muscle Testing Right Dorsiflexion (L4) 5 Normal Plantarflexion (S1) 4+ Good+ Left Dorsiflexion (L4) 5 Normal Plantarflexion (S1) 4+ Good+ Comments PF tested seated PT-OP-Q Treatments Start: 10/29/21 07:41 Freq: Status: Active Protocol: Document 11/06/21 09:12 [facility] (Rec: 11/06/21 09:47 [facility] [id number]) Cardio Equipment Recumbent Elliptical ([employer]) Duration (Minutes) 6 Resistance 6 Seat Position 8 Gym Equipment Shuttle Recovery Bilateral Squats Resistance 87# Shuttle Recovery Platform Stable Reps/Time 2x15 Shuttle Balance 2 Details blue clips Comments Fwd & side: WBOS fwd: NBOS & staggered stance B Therapeutic Exercises Standing Exercises heel raises Side bilateral Reps/Minutes 15 sit to stand Side bilateral Reps/Minutes 10 Comments no hands hip ext Side bilateral Reps/Minutes 10 hip abd Side bilateral Reps/Minutes 15 Other Exercises 6 min walk Other Exercise Name 1119ft w/occ scuffing of feet Neuro Re-Education Treatment Balance Activities balance board Comments 1.fwd/back tilts 2. side/side wt shifts 3.balance fwd & side trials 2 Details hurdles (6) Comments 1.fwd x8 step thru 2. sidestep x2 B PT-OP-T Assessment and Plan Start: 10/29/21 07:41 Freq: Status: Active Protocol: Document 11/06/21 09:12 [facility] (Rec: 11/06/21 09:47 [facility] [id number]) Physical Therapy Assessment Goals activities Usp Goal (LTG) Pt will report feeling stronger so she is able to do more household tasks in a better manner (making the bed, cooking, etc) without excessive fatigue LTG Duration 01/29/22 Dynamic balance Impairment DGI 14/24; FGA 12/30 Short Term Goal (STG) Pt will improve DGI score to at least 20 to show dec risk for falls. STG Duration 12/30/21 Usp Goal (LTG) Pt will improve FGA score to at least 22/30 to show dec fall risk. LTG Duration 01/29/22 HERNANDEZ Short Term Goal (STG) pt will improve HERNANDEZ score to at least 46/56 to show she is safe ambulator w/o AD and is less likely to fall. STG Duration 12/08/21 Pony Cylinder Press Operator Goal (LTG) pt will improve HERNANDEZ score to at least 50/56 to show she is safe ambulator w/o AD outdoors and in the community. LTG Duration 01/29/22 sit to stand Short Term Goal (STG) Pt will be able to complete 5x sit to stand test. STG Duration 12/08/21 Usp Goal (LTG) Pt will be able to do at least 9 sit to stands in 30 sec to show improved strength & balance. LTG Duration 01/29/22 Assessment Summary Assessment Pt did well with exercises today showing good form with HEP exercises. She did better with all balance activities showing more control. Physical Therapy Plan Frequency and Duration Frequency of Treatment 2x/Week Duration of Treatment 3 months Plan of Care Start Date 10/30/21 Plan of Care End Date 01/29/22 Next Visit Focus/Plan Next Note Type Treatment Note Next Visit Plan balance and strength exercises .
--- NOTE | 2021-11-12 09:44 | PT.OTN ---
Current Diagnoses Difficulty in walking, not elsewhere classified (11/12/21) Unsteadiness on feet (11/12/21) Abnormal posture (11/12/21) Weakness (11/12/21) Physical Therapy Treatment Note PT-OP-A Visit Information Start: 10/29/21 07:41 Freq: Status: Active Protocol: Document 11/12/21 09:04 [facility] (Rec: 11/12/21 09:40 [facility] [id number]) Out-Patient Physical Therapy Visit Information Visit Information Visit Type Treatment Note Visit Note 11/03 Visit Start Time 09:00 Visit Stop Time 09:41 Total Visit Minutes 41 Visit Number 4 Number of FINANCIAL AID MANAGER Visits 0 PT-OP-B Current Condition Start: 10/29/21 07:41 Freq: Status: Active Protocol: Document 10/30/21 08:22 [facility] (Rec: 10/30/21 12:09 [facility] [id number]) Current Condition History of Current Condition Current Complaints falls, weakness History of Current Condition Pt reports since her stroke she has been weaker. Stroke was about 10 years ago and has done PT on/off which helps her but then she declines again. She had to hire someone for cleaning about 1 year ago d/t pt noting it just takes too long to do anything. Pt reports a couple years ago, she fell whenw alking with her friends so they won't let her walk with them anymore. She has not been in the garden for 3 years because [facility] will bend down to pepper picker a weed and fall over. She reports she is falling more recently. She fell 3 times in the last year. One time, she fell walking backwards down the last few steps and miscounted how many steps so seh fell over. One time, she fell backing up when squeezing between a chair. Pt reports she has to be very careful walking backwards. won't walk around the block w/her because he likes to go his own pace. She was doing the strength and balance class at [facility]. Pt reports she developed a sore ( red area) on her R foot at bottom of 5th [address] and she got custom insoles. She still has to wear a bandage on it to keep it from hurting. Pt reports R hip has been on/off giving her trouble but unsure what causes pain. Some days it doesn't hurt at all and sometimes it does off/on. Pt does have macular degeneration and that does liimt her too. Pt reports ever since COVID vaccine has to be care when getting up otherwise gets dizzy Treatment Goals Patient/Caregiver Goals Be able to walk again by herself, be able to do some things around the house (be able to make bed better, be able to snap lids of containers, cook more, some other clean up) PT-OP-C Subjective Start: 10/29/21 07:41 Freq: Status: Active Protocol: Document 11/12/21 09:04 [facility] (Rec: 11/12/21 09:40 [facility] [id number]) OP-PT Subjective Patient Comments Patient Comments no new complaints PT-OP-D Balance Start: 10/29/21 07:41 Freq: Status: Active Protocol: Document 10/30/21 08:22 [facility] (Rec: 10/30/21 12:09 [facility] [id number]) Balance Tests Hernandez Balance Test Hernandez Balance Test Score 41 Single Limb Standing Single Limb- Right 2 Single Limb- Left 2 PT-OP-E Functional Tests Start: 10/29/21 07:41 Freq: Status: Active Protocol: Document 10/30/21 08:22 [facility] (Rec: 10/30/21 12:09 [facility] [id number]) Functional Tests 30 Second Sit to Stand Test Score 4x Dynamic Gait Index (DGI) Score 14 Five Times Sit to Stand Test Score unable to get 5 w/using UEs- 28 sec after 4 but after kept falling back Comments when attempting to stand Functional Gait Assessment Score 12 PT-OP-G Mobility & Gait Start: 10/29/21 07:41 Freq: Status: Active Protocol: Document 10/30/21 08:22 [facility] (Rec: 10/30/21 12:09 [facility] [id number]) OP Gait Assessment Comments Gait Comments Pt amb slowly w/dec push off and dec overall stability. PT-OP-J Posture/Palpation/Skin Start: 10/29/21 07:41 Freq: Status: Active Protocol: Document 10/30/21 08:22 [facility] (Rec: 10/30/21 15:52 [facility] [id number]) Posture Evaluation Comments Posture Comments inc kyphosis & fwd head PT-OP-M Strength Start: 10/29/21 07:41 Freq: Status: Active Protocol: Document 10/30/21 08:22 [facility] (Rec: 10/30/21 12:09 [facility] [id number]) Hip Strength Hip Manual Muscle Testing Right Flexion (L2) 3+ Fair+ External Rotation 3+ Fair+ Internal Rotation 3+ Fair+ Left Flexion (L2) 3+ Fair+ External Rotation 3+ Fair+ Internal Rotation 3+ Fair+ Knee Strength Knee Manual Muscle Testing Right Flexion (S2) 4 Good Extension (L3) 4 Good Left Flexion (S2) 4 Good Extension (L3) 4- Good- Ankle/Foot Strength Ankle and Foot Manual Muscle Testing Right Dorsiflexion (L4) 5 Normal Plantarflexion (S1) 4+ Good+ Left Dorsiflexion (L4) 5 Normal Plantarflexion (S1) 4+ Good+ Comments PF tested seated PT-OP-Q Treatments Start: 10/29/21 07:41 Freq: Status: Active Protocol: Document 11/12/21 09:04 [facility] (Rec: 11/12/21 09:40 [facility] [id number]) Cardio Equipment Recumbent Elliptical ([employer]) Duration (Minutes) 7 Resistance 6 Seat Position 8 Gym Equipment Shuttle Recovery Bilateral Squats Resistance 87# Shuttle Recovery Platform Stable Reps/Time 2x15 Shuttle Balance 2 Details blue clips Comments Fwd & side: WBOS fwd: NBOS & staggered stance B Therapeutic Exercises Standing Exercises DF Standing Exercise Name alt Side bilateral Reps/Minutes 15 heel raises Side bilateral Reps/Minutes 20 hip ext Standing Exercise Name fwd/back walk Side bilateral Reps/Minutes 2x20ft hip abd Standing Exercise Name side steps Side bilateral Equipment Used L1 Reps/Minutes 2x20ft Neuro Re-Education Treatment Balance Activities balance board Comments 1.fwd/back tilts 2. side/side wt shifts 3.balance fwd & side trials Tandem walk Comments 1. stance trials 2. tandem walk w/2 fingers on rail 2x20ft 3. line walk fwd 2x20ft (not tandem) 2 Details hurdles (6) Comments 1.fwd x8 step thru 2. sidestep x2 B PT-OP-T Assessment and Plan Start: 10/29/21 07:41 Freq: Status: Active Protocol: Document 11/12/21 09:04 [facility] (Rec: 11/12/21 09:40 [facility] [id number]) Physical Therapy Assessment Goals activities American History Teacher Goal (LTG) Pt will report feeling stronger so she is able to do more household tasks in a better manner (making the bed, cooking, etc) without excessive fatigue LTG Duration 01/29/22 Dynamic balance Impairment DGI 1424; FGA 12 Short Term Goal (STG) Pt will improve DGI score to at least 20 to show dec risk for falls. STG Duration 12/30/21 American History Teacher Goal (LTG) Pt will improve FGA score to at least 22/30 to show dec fall risk. LTG Duration 01/29/22 HERNANDEZ Short Term Goal (STG) pt will improve HERNANDEZ score to at least 46/56 to show she is safe ambulator w/o AD and is less likely to fall. STG Duration 12/08/21 Mcc Goal (LTG) pt will improve HERNANDEZ score to at least 50/56 to show she is safe ambulator w/o AD outdoors and in the community. LTG Duration 01/29/22 sit to stand Short Term Goal (STG) Pt will be able to complete 5x sit to stand test. STG Duration 12/08/21 American History Teacher Goal (LTG) Pt will be able to do at least 9 sit to stands in 30 sec to show improved strength & balance. LTG Duration 01/29/22 Assessment Summary Assessment Pt showed much better balance with all exercises today. They still were a challenge but she was more fluid w/hurdles w /elss times knocking into hurdles and less use of rail w /other balance activities. Physical Therapy Plan Frequency and Duration Frequency of Treatment 2x/Week Duration of Treatment 3 months Plan of Care Start Date 10/30/21 Plan of Care End Date 01/29/22 Next Visit Focus/Plan Next Note Type Treatment Note Next Visit Plan balance and strength exercises .
--- NOTE | 2021-11-14 11:15 | PT.OTN ---
Current Diagnoses Difficulty in walking, not elsewhere classified (11/14/21) Unsteadiness on feet (11/14/21) Abnormal posture (11/14/21) Weakness (11/14/21) Physical Therapy Treatment Note PT-OP-A Visit Information Start: 10/29/21 07:41 Freq: Status: Active Protocol: Document 11/14/21 10:40 [facility] (Rec: 11/14/21 11:14 [facility] [id number]) Out-Patient Physical Therapy Visit Information Visit Information Visit Type Treatment Note Visit Note 12/03 Visit Start Time 10:35 Visit Stop Time 11:15 Total Visit Minutes 40 Visit Number 5 Number of BANK CONSULTANT Visits 1 PT-OP-B Current Condition Start: 10/29/21 07:41 Freq: Status: Active Protocol: Document 10/30/21 08:22 [facility] (Rec: 10/30/21 12:09 [facility] [id number]) Current Condition History of Current Condition Current Complaints falls, weakness History of Current Condition Pt reports since her stroke she has been weaker. Stroke was about 10 years ago and has done PT on/off which helps her but then she declines again. She had to hire someone for cleaning about 1 year ago d/t pt noting it just takes too long to do anything. Pt reports a couple years ago, she fell whenw alking with her friends so they won't let her walk with them anymore. She has not been in the garden for 3 years because [facility] will bend down to warehouse picker a weed and fall over. She reports she is falling more recently. She fell 3 times in the last year. One time, she fell walking backwards down the last few steps and miscounted how many steps so seh fell over. One time, she fell backing up when squeezing between a chair. Pt reports she has to be very careful walking backwards. won't walk around the block w/her because he likes to go his own pace. She was doing the strength and balance class at [facility]. Pt reports she developed a sore ( red area) on her R foot at bottom of 5th [address] and she got custom insoles. She still has to wear a bandage on it to keep it from hurting. Pt reports R hip has been on/off giving her trouble but unsure what causes pain. Some days it doesn't hurt at all and sometimes it does off/on. Pt does have macular degeneration and that does liimt her too. Pt reports ever since COVID vaccine has to be care when getting up otherwise gets dizzy Treatment Goals Patient/Caregiver Goals Be able to walk again by herself, be able to do some things around the house (be able to make bed better, be able to snap lids of containers, cook more, some other clean up) PT-OP-C Subjective Start: 10/29/21 07:41 Freq: Status: Active Protocol: Document 11/14/21 10:40 [facility] (Rec: 11/14/21 11:14 [facility] [id number]) OP-PT Subjective Patient Comments Patient Comments Pt feels her R foot wound is healing as it is not bothering her anymore. The woman who cuts her nails has been taking photos of wound to assess if it is healing well and she sees her on Thursday again. PT-OP-D Balance Start: 10/29/21 07:41 Freq: Status: Active Protocol: Document 10/30/21 08:22 [facility] (Rec: 10/30/21 12:09 [facility] [id number]) Balance Tests Hernandez Balance Test Hernandez Balance Test Score 41 Single Limb Standing Single Limb- Right 2 Single Limb- Left 2 PT-OP-E Functional Tests Start: 10/29/21 07:41 Freq: Status: Active Protocol: Document 10/30/21 08:22 [facility] (Rec: 10/30/21 12:09 [facility] [id number]) Functional Tests 30 Second Sit to Stand Test Score 4x Dynamic Gait Index (DGI) Score 14 Five Times Sit to Stand Test Score unable to get 5 w/using UEs- 28 sec after 4 but after kept falling back Comments when attempting to stand Functional Gait Assessment Score 12 PT-OP-G Mobility & Gait Start: 10/29/21 07:41 Freq: Status: Active Protocol: Document 10/30/21 08:22 [facility] (Rec: 10/30/21 12:09 [facility] [id number]) OP Gait Assessment Comments Gait Comments Pt amb slowly w/dec push off and dec overall stability. PT-OP-J Posture/Palpation/Skin Start: 10/29/21 07:41 Freq: Status: Active Protocol: Document 10/30/21 08:22 [facility] (Rec: 10/30/21 15:52 [facility] [id number]) Posture Evaluation Comments Posture Comments inc kyphosis & fwd head PT-OP-M Strength Start: 10/29/21 07:41 Freq: Status: Active Protocol: Document 10/30/21 08:22 [facility] (Rec: 10/30/21 12:09 [facility] [id number]) Hip Strength Hip Manual Muscle Testing Right Flexion (L2) 3+ Fair+ External Rotation 3+ Fair+ Internal Rotation 3+ Fair+ Left Flexion (L2) 3+ Fair+ External Rotation 3+ Fair+ Internal Rotation 3+ Fair+ Knee Strength Knee Manual Muscle Testing Right Flexion (S2) 4 Good Extension (L3) 4 Good Left Flexion (S2) 4 Good Extension (L3) 4- Good- Ankle/Foot Strength Ankle and Foot Manual Muscle Testing Right Dorsiflexion (L4) 5 Normal Plantarflexion (S1) 4+ Good+ Left Dorsiflexion (L4) 5 Normal Plantarflexion (S1) 4+ Good+ Comments PF tested seated PT-OP-Q Treatments Start: 10/29/21 07:41 Freq: Status: Active Protocol: Document 11/14/21 10:40 [facility] (Rec: 11/14/21 11:14 [facility] [id number]) Cardio Equipment Recumbent Stepper ([employer]) Duration (Minutes) 7 Resistance 2.0 Seat Position 10 Gym Equipment Shuttle Balance 2 Details red clips Comments Fwd & side: WBOS/NBOS Min A for NBOS laterally Therapeutic Exercises Standing Exercises Marches Side bilateral Reps/Minutes 20x with rail, 20x w/o rail DF Standing Exercise Name stephania with rail Side bilateral Reps/Minutes 15 heel raises Side bilateral Reps/Minutes 20 sit to stand Side bilateral Reps/Minutes 10 Comments no hands Neuro Re-Education Treatment Balance Activities Tandem walk Reps/Duration 4x20 ft Comments 1. tandem walk fwd CGA, backwards walk back to start 2 Details hurdles (6) Comments 1.fwd x8 step thru 2. sidestep x2 B PT-OP-T Assessment and Plan Start: 10/29/21 07:41 Freq: Status: Active Protocol: Document 11/14/21 10:40 [facility] (Rec: 11/14/21 11:14 [facility] [id number]) Physical Therapy Assessment Goals activities Fpc Goal (LTG) Pt will report feeling stronger so she is able to do more household tasks in a better manner (making the bed, cooking, etc) without excessive fatigue LTG Duration 01/29/22 Dynamic balance Impairment DGI 14/24; FGA 12/30 Short Term Goal (STG) Pt will improve DGI score to at least 20 to show dec risk for falls. STG Duration 12/30/21 Straightening Machine Operator Goal (LTG) Pt will improve FGA score to at least 22/30 to show dec fall risk. LTG Duration 01/29/22 HERNANDEZ Short Term Goal (STG) pt will improve HERNANDEZ score to at least 46/56 to show she is safe ambulator w/o AD and is less likely to fall. STG Duration 12/08/21 Straightening Machine Operator Goal (LTG) pt will improve HERNANDEZ score to at least 50/56 to show she is safe ambulator w/o AD outdoors and in the community. LTG Duration 01/29/22 sit to stand Short Term Goal (STG) Pt will be able to complete 5x sit to stand test. STG Duration 12/08/21 Straightening Machine Operator Goal (LTG) Pt will be able to do at least 9 sit to stands in 30 sec to show improved strength & balance. LTG Duration 01/29/22 Assessment Summary Assessment Pt was challenged by red clips on shuttle balance and requires Min A with NBOS when standing laterally on board. She did well with backwards walking this session when cued to keep a wider MARY. She initially had some difficulty starting hurdles this session stepping fwd but was able to progress to CGA, step-thru without knocking any hurdles. Physical Therapy Plan Frequency and Duration Frequency of Treatment 2x/Week Duration of Treatment 3 months Plan of Care Start Date 10/30/21 Plan of Care End Date 01/29/22 Therapeutic Interventions Therapeutic Interventions Aquatic Therapy,Balance Training,Gait Training,Home Exercise Program,Manual Therapy,Neuromuscular Re- education,Patient/Caregiver Education,Self-Care/Home Management,Soft Tissue Mobilization,Taping, Therapeutic Activities, Therapeutic Exercises Modalities Cold Pack/Ice Massage,Hot Packs Next Visit Focus/Plan Next Note Type Treatment Note Next Visit Plan balance and strength exercises .
--- NOTE | 2021-11-19 09:46 | PT.OTN ---
Current Diagnoses Difficulty in walking, not elsewhere classified (11/19/21) Unsteadiness on feet (11/19/21) Abnormal posture (11/19/21) Weakness (11/19/21) Physical Therapy Treatment Note PT-OP-A Visit Information Start: 10/29/21 07:41 Freq: Status: Active Protocol: Document 11/19/21 09:08 [facility] (Rec: 11/19/21 09:46 [facility] [id number]) Out-Patient Physical Therapy Visit Information Visit Information Visit Type Treatment Note Visit Note 01/03 Visit Start Time 09:04 Visit Stop Time 09:45 Total Visit Minutes 41 Visit Number 6 Number of OBSTETRICIAN Visits 0 PT-OP-B Current Condition Start: 10/29/21 07:41 Freq: Status: Active Protocol: Document 10/30/21 08:22 [facility] (Rec: 10/30/21 12:09 [facility] [id number]) Current Condition History of Current Condition Current Complaints falls, weakness History of Current Condition Pt reports since her stroke she has been weaker. Stroke was about 10 years ago and has done PT on/off which helps her but then she declines again. She had to hire someone for cleaning about 1 year ago d/t pt noting it just takes too long to do anything. Pt reports a couple years ago, she fell whenw alking with her friends so they won't let her walk with them anymore. She has not been in the garden for 3 years because [facility] will bend down to supervisor opening and picking a weed and fall over. She reports she is falling more recently. She fell 3 times in the last year. One time, she fell walking backwards down the last few steps and miscounted how many steps so seh fell over. One time, she fell backing up when squeezing between a chair. Pt reports she has to be very careful walking backwards. won't walk around the block w/her because he likes to go his own pace. She was doing the strength and balance class at [facility]. Pt reports she developed a sore ( red area) on her R foot at bottom of 5th MT and she got custom insoles. She still has to wear a bandage on it to keep it from hurting. Pt reports R hip has been on/off giving her trouble but unsure what causes pain. Some days it doesn't hurt at all and sometimes it does off/on. Pt does have macular degeneration and that does liimt her too. Pt reports ever since COVID vaccine has to be care when getting up otherwise gets dizzy Treatment Goals Patient/Caregiver Goals Be able to walk again by herself, be able to do some things around the house (be able to make bed better, be able to snap lids of containers, cook more, some other clean up) PT-OP-C Subjective Start: 10/29/21 07:41 Freq: Status: Active Protocol: Document 11/19/21 09:08 [facility] (Rec: 11/19/21 09:46 [facility] [id number]) OP-PT Subjective Patient Comments Patient Comments Pt does have to keep a bandaid on foot wound to give it more protection. The nail doctor looked at it and told her it looked pretty good. PT-OP-D Balance Start: 10/29/21 07:41 Freq: Status: Active Protocol: Document 10/30/21 08:22 [facility] (Rec: 10/30/21 12:09 [facility] [id number]) Balance Tests Hernandez Balance Test Hernandez Balance Test Score 41 Single Limb Standing Single Limb- Right 2 Single Limb- Left 2 PT-OP-E Functional Tests Start: 10/29/21 07:41 Freq: Status: Active Protocol: Document 10/30/21 08:22 [facility] (Rec: 10/30/21 12:09 [facility] [id number]) Functional Tests 30 Second Sit to Stand Test Score 4x Dynamic Gait Index (DGI) Score 14 Five Times Sit to Stand Test Score unable to get 5 w/using UEs- 28 sec after 4 but after kept falling back Comments when attempting to stand Functional Gait Assessment Score 12 PT-OP-G Mobility & Gait Start: 10/29/21 07:41 Freq: Status: Active Protocol: Document 10/30/21 08:22 [facility] (Rec: 10/30/21 12:09 [facility] [id number]) OP Gait Assessment Comments Gait Comments Pt amb slowly w/dec push off and dec overall stability. PT-OP-J Posture/Palpation/Skin Start: 10/29/21 07:41 Freq: Status: Active Protocol: Document 10/30/21 08:22 [facility] (Rec: 10/30/21 15:52 [facility] [id number]) Posture Evaluation Comments Posture Comments inc kyphosis & fwd head PT-OP-M Strength Start: 10/29/21 07:41 Freq: Status: Active Protocol: Document 10/30/21 08:22 [facility] (Rec: 10/30/21 12:09 [facility] [id number]) Hip Strength Hip Manual Muscle Testing Right Flexion (L2) 3+ Fair+ External Rotation 3+ Fair+ Internal Rotation 3+ Fair+ Left Flexion (L2) 3+ Fair+ External Rotation 3+ Fair+ Internal Rotation 3+ Fair+ Knee Strength Knee Manual Muscle Testing Right Flexion (S2) 4 Good Extension (L3) 4 Good Left Flexion (S2) 4 Good Extension (L3) 4- Good- Ankle/Foot Strength Ankle and Foot Manual Muscle Testing Right Dorsiflexion (L4) 5 Normal Plantarflexion (S1) 4+ Good+ Left Dorsiflexion (L4) 5 Normal Plantarflexion (S1) 4+ Good+ Comments PF tested seated PT-OP-Q Treatments Start: 10/29/21 07:41 Freq: Status: Active Protocol: Document 11/19/21 09:08 [facility] (Rec: 11/19/21 09:46 [facility] [id number]) Cardio Equipment Recumbent Elliptical (Biodex) Duration (Minutes) 7 Resistance 6 Seat Position 8 Gym Equipment Shuttle Recovery Bilateral Squats Resistance 100# Shuttle Recovery Platform Stable Reps/Time 2x15 Shuttle Balance 2 Details red clips Comments Fwd & side: WBOS/NBOS Min A for NBOS laterally by 1 hand Therapeutic Exercises Standing Exercises Marches Side bilateral Reps/Minutes 20x w/o rail DF Standing Exercise Name alt Side bilateral Reps/Minutes 15 sit to stand Side bilateral Reps/Minutes 10 Comments no hands hip ext Standing Exercise Name fwd/back walk Side bilateral Reps/Minutes 2x20ft hip abd Standing Exercise Name side steps Side bilateral Equipment Used L1 Reps/Minutes 2x20ft Neuro Re-Education Treatment Balance Activities balance board Comments 1.fwd/back tilts 2. side/side wt shifts Tandem walk Comments 1. stance trials 2. tandem walk w/2 fingers on rail 2x20ft 3. line walk fwd 2x20ft (not tandem) 2 Details hurdles (6) Comments 1.fwd x8 step thru 2. sidestep x2 B 1 Comments carioca steps 20ft B PT-OP-T Assessment and Plan Start: 10/29/21 07:41 Freq: Status: Active Protocol: Document 11/19/21 09:08 [facility] (Rec: 11/19/21 09:46 [facility] [id number]) Physical Therapy Assessment Goals activities Residential Goal (LTG) Pt will report feeling stronger so she is able to do more household tasks in a better manner (making the bed, cooking, etc) without excessive fatigue LTG Duration 01/29/22 Dynamic balance Impairment DGI 1424; FGA 12 Short Term Goal (STG) Pt will improve DGI score to at least 20 to show dec risk for falls. STG Duration 12/30/21 Commercial Assistant Goal (LTG) Pt will improve FGA score to at least 22/30 to show dec fall risk. LTG Duration 01/29/22 HERNANDEZ Short Term Goal (STG) pt will improve HERNANDEZ score to at least 46/56 to show she is safe ambulator w/o AD and is less likely to fall. STG Duration 12/08/21 Commercial Assistant Goal (LTG) pt will improve HERNANDEZ score to at least 50/56 to show she is safe ambulator w/o AD outdoors and in the community. LTG Duration 01/29/22 sit to stand Short Term Goal (STG) Pt will be able to complete 5x sit to stand test. STG Duration 12/08/21 Commercial Assistant Goal (LTG) Pt will be able to do at least 9 sit to stands in 30 sec to show improved strength & balance. LTG Duration 01/29/22 Assessment Summary Assessment Pt showed improved performance w/balance tasks today and showed dec fatigue w/ strengthening exercises overall. She still is significnalty challenged by shuttle balance Physical Therapy Plan Frequency and Duration Frequency of Treatment 2x/Week Duration of Treatment 3 months Plan of Care Start Date 10/30/21 Plan of Care End Date 01/29/22 Next Visit Focus/Plan Next Note Type Treatment Note Next Visit Plan balance and strength exercises .
--- NOTE | 2021-11-20 13:57 | PT.OTN ---
Current Diagnoses Difficulty in walking, not elsewhere classified (11/20/21) Unsteadiness on feet (11/20/21) Abnormal posture (11/20/21) Weakness (11/20/21) Physical Therapy Treatment Note PT-OP-A Visit Information Start: 10/29/21 07:41 Freq: Status: Active Protocol: Document 11/20/21 12:58 [facility] (Rec: 11/20/21 13:57 [facility] [id number]) Out-Patient Physical Therapy Visit Information Visit Information Visit Type Treatment Note Visit Note 02/02 Visit Start Time 13:00 Visit Stop Time 13:42 Total Visit Minutes 42 Visit Number 7 Number of DRUG ROOM CLERK Visits 0 PT-OP-B Current Condition Start: 10/29/21 07:41 Freq: Status: Active Protocol: Document 10/30/21 08:22 [facility] (Rec: 10/30/21 12:09 [facility] [id number]) Current Condition History of Current Condition Current Complaints falls, weakness History of Current Condition Pt reports since her stroke she has been weaker. Stroke was about 10 years ago and has done PT on/off which helps her but then she declines again. She had to hire someone for cleaning about 1 year ago d/t pt noting it just takes too long to do anything. Pt reports a couple years ago, she fell whenw alking with her friends so they won't let her walk with them anymore. She has not been in the garden for 3 years because [facility] will bend down to last picker a weed and fall over. She reports she is falling more recently. She fell 3 times in the last year. One time, she fell walking backwards down the last few steps and miscounted how many steps so seh fell over. One time, she fell backing up when squeezing between a chair. Pt reports she has to be very careful walking backwards. won't walk around the block w/her because he likes to go his own pace. She was doing the strength and balance class at [facility]. Pt reports she developed a sore ( red area) on her R foot at bottom of 5th [address] and she got custom insoles. She still has to wear a bandage on it to keep it from hurting. Pt reports R hip has been on/off giving her trouble but unsure what causes pain. Some days it doesn't hurt at all and sometimes it does off/on. Pt does have macular degeneration and that does liimt her too. Pt reports ever since COVID vaccine has to be care when getting up otherwise gets dizzy Treatment Goals Patient/Caregiver Goals Be able to walk again by herself, be able to do some things around the house (be able to make bed better, be able to snap lids of containers, cook more, some other clean up) PT-OP-C Subjective Start: 10/29/21 07:41 Freq: Status: Active Protocol: Document 11/20/21 12:58 [facility] (Rec: 11/20/21 13:57 [facility] [id number]) OP-PT Subjective Patient Comments Patient Comments Pt had some biopsy taken off her arms and upper back today. PT-OP-D Balance Start: 10/29/21 07:41 Freq: Status: Active Protocol: Document 10/30/21 08:22 [facility] (Rec: 10/30/21 12:09 [facility] [id number]) Balance Tests Hernandez Balance Test Hernandez Balance Test Score 41 Single Limb Standing Single Limb- Right 2 Single Limb- Left 2 PT-OP-E Functional Tests Start: 10/29/21 07:41 Freq: Status: Active Protocol: Document 10/30/21 08:22 [facility] (Rec: 10/30/21 12:09 [facility] [id number]) Functional Tests 30 Second Sit to Stand Test Score 4x Dynamic Gait Index (DGI) Score 14 Five Times Sit to Stand Test Score unable to get 5 w/using UEs- 28 sec after 4 but after kept falling back Comments when attempting to stand Functional Gait Assessment Score 12 PT-OP-G Mobility & Gait Start: 10/29/21 07:41 Freq: Status: Active Protocol: Document 10/30/21 08:22 [facility] (Rec: 10/30/21 12:09 [facility] [id number]) OP Gait Assessment Comments Gait Comments Pt amb slowly w/dec push off and dec overall stability. PT-OP-J Posture/Palpation/Skin Start: 10/29/21 07:41 Freq: Status: Active Protocol: Document 10/30/21 08:22 [facility] (Rec: 10/30/21 15:52 [facility] [id number]) Posture Evaluation Comments Posture Comments inc kyphosis & fwd head PT-OP-M Strength Start: 10/29/21 07:41 Freq: Status: Active Protocol: Document 10/30/21 08:22 [facility] (Rec: 10/30/21 12:09 [facility] [id number]) Hip Strength Hip Manual Muscle Testing Right Flexion (L2) 3+ Fair+ External Rotation 3+ Fair+ Internal Rotation 3+ Fair+ Left Flexion (L2) 3+ Fair+ External Rotation 3+ Fair+ Internal Rotation 3+ Fair+ Knee Strength Knee Manual Muscle Testing Right Flexion (S2) 4 Good Extension (L3) 4 Good Left Flexion (S2) 4 Good Extension (L3) 4- Good- Ankle/Foot Strength Ankle and Foot Manual Muscle Testing Right Dorsiflexion (L4) 5 Normal Plantarflexion (S1) 4+ Good+ Left Dorsiflexion (L4) 5 Normal Plantarflexion (S1) 4+ Good+ Comments PF tested seated PT-OP-Q Treatments Start: 10/29/21 07:41 Freq: Status: Active Protocol: Document 11/20/21 12:58 [facility] (Rec: 11/20/21 13:57 [facility] [id number]) Cardio Equipment Recumbent Elliptical (BiodOwned it) Duration (Minutes) 7 Resistance 8 Seat Position 9 Gym Equipment Shuttle Recovery Bilateral Squats Resistance 112# Shuttle Recovery Platform Stable Reps/Time 20 Shuttle Balance 2 Details red clips Comments Fwd & side: WBOS/NBOS Min A for NBOS laterally by 1 hand on bar fwd: staggered stance w/1 hand on bar frequently Therapeutic Exercises Standing Exercises Marches Side bilateral Reps/Minutes 20x w/o rail DF Standing Exercise Name alt Side bilateral Reps/Minutes 15 hip ext Standing Exercise Name fwd/back walk Side bilateral Equipment Used lvl 2 Reps/Minutes 2x20ft hip abd Standing Exercise Name side steps Side bilateral Equipment Used L2 Reps/Minutes 2x20ft Neuro Re-Education Treatment Balance Activities balance board Comments 1.fwd/back tilts 2. side/side wt shifts Tandem walk Comments 1. stance trials 2. tandem walk w/2 fingers on rail 2x20ft 3. line walk fwd 2x20ft (not tandem) 2 Details hurdles (6) Comments 1.fwd x8 step thru 2. sidestep x2 B 1 Comments carioca steps 20ft B PT-OP-T Assessment and Plan Start: 10/29/21 07:41 Freq: Status: Active Protocol: Document 11/20/21 12:58 [facility] (Rec: 11/20/21 13:57 [facility] [id number]) Physical Therapy Assessment Goals activities Half-Way Goal (LTG) Pt will report feeling stronger so she is able to do more household tasks in a better manner (making the bed, cooking, etc) without excessive fatigue LTG Duration 01/29/22 Dynamic balance Impairment DGI 14/24; FGA 12/30 Short Term Goal (STG) Pt will improve DGI score to at least 20 to show dec risk for falls. STG Duration 12/30/21 Broaching Machine Operator Goal (LTG) Pt will improve FGA score to at least 22/30 to show dec fall risk. LTG Duration 01/29/22 HERNANDEZ Short Term Goal (STG) pt will improve HERNANDEZ score to at least 46/56 to show she is safe ambulator w/o AD and is less likely to fall. STG Duration 12/08/21 Broaching Machine Operator Goal (LTG) pt will improve HERNANDEZ score to at least 50/56 to show she is safe ambulator w/o AD outdoors and in the community. LTG Duration 01/29/22 sit to stand Short Term Goal (STG) Pt will be able to complete 5x sit to stand test. STG Duration 12/08/21 Broaching Machine Operator Goal (LTG) Pt will be able to do at least 9 sit to stands in 30 sec to show improved strength & balance. LTG Duration 01/29/22 Assessment Summary Assessment Pt cont to tolerate inc resistance and inc difficulty with exercises w/o complaints. She does fatigue by end of session and moves a little slower. Physical Therapy Plan Frequency and Duration Frequency of Treatment 2x/Week Duration of Treatment 3 months Plan of Care Start Date 10/30/21 Plan of Care End Date 01/29/22 Next Visit Focus/Plan Next Note Type Treatment Note Next Visit Plan progress balance and strength exercises.
--- NOTE | 2021-11-27 09:46 | PT.OTN ---
Current Diagnoses Difficulty in walking, not elsewhere classified (11/27/21) Unsteadiness on feet (11/27/21) Abnormal posture (11/27/21) Weakness (11/27/21) Physical Therapy Treatment Note PT-OP-A Visit Information Start: 10/29/21 07:41 Freq: Status: Active Protocol: Document 11/27/21 07:25 [facility] (Rec: 11/27/21 09:46 [facility] [id number]) Out-Patient Physical Therapy Visit Information Visit Information Visit Type Treatment Note Visit Note 03/05 Visit Start Time 09:03 Visit Stop Time 09:44 Total Visit Minutes 41 Visit Number 8 Number of BAIT PACKER Visits 0 PT-OP-B Current Condition Start: 10/29/21 07:41 Freq: Status: Active Protocol: Document 10/30/21 08:22 [facility] (Rec: 10/30/21 12:09 [facility] [id number]) Current Condition History of Current Condition Current Complaints falls, weakness History of Current Condition Pt reports since her stroke she has been weaker. Stroke was about 10 years ago and has done PT on/off which helps her but then she declines again. She had to hire someone for cleaning about 1 year ago d/t pt noting it just takes too long to do anything. Pt reports a couple years ago, she fell whenw alking with her friends so they won't let her walk with them anymore. She has not been in the garden for 3 years because [facility] will bend down to warehouse picker a weed and fall over. She reports she is falling more recently. She fell 3 times in the last year. One time, she fell walking backwards down the last few steps and miscounted how many steps so seh fell over. One time, she fell backing up when squeezing between a chair. Pt reports she has to be very careful walking backwards. won't walk around the block w/her because he likes to go his own pace. She was doing the strength and balance class at [facility]. Pt reports she developed a sore ( red area) on her R foot at bottom of 5th [address] and she got custom insoles. She still has to wear a bandage on it to keep it from hurting. Pt reports R hip has been on/off giving her trouble but unsure what causes pain. Some days it doesn't hurt at all and sometimes it does off/on. Pt does have macular degeneration and that does liimt her too. Pt reports ever since COVID vaccine has to be care when getting up otherwise gets dizzy Treatment Goals Patient/Caregiver Goals Be able to walk again by herself, be able to do some things around the house (be able to make bed better, be able to snap lids of containers, cook more, some other clean up) PT-OP-C Subjective Start: 10/29/21 07:41 Freq: Status: Active Protocol: Document 11/27/21 07:25 [facility] (Rec: 11/27/21 09:46 [facility] [id number]) OP-PT Subjective Patient Comments Patient Comments Pt reports she wants to be able to get up/down from the ground. PT-OP-D Balance Start: 10/29/21 07:41 Freq: Status: Active Protocol: Document 10/30/21 08:22 [facility] (Rec: 10/30/21 12:09 [facility] [id number]) Balance Tests Hernandez Balance Test Hernandez Balance Test Score 41 Single Limb Standing Single Limb- Right 2 Single Limb- Left 2 PT-OP-E Functional Tests Start: 10/29/21 07:41 Freq: Status: Active Protocol: Document 10/30/21 08:22 [facility] (Rec: 10/30/21 12:09 [facility] [id number]) Functional Tests 30 Second Sit to Stand Test Score 4x Dynamic Gait Index (DGI) Score 14 Five Times Sit to Stand Test Score unable to get 5 w/using UEs- 28 sec after 4 but after kept falling back Comments when attempting to stand Functional Gait Assessment Score 12 PT-OP-G Mobility & Gait Start: 10/29/21 07:41 Freq: Status: Active Protocol: Document 10/30/21 08:22 [facility] (Rec: 10/30/21 12:09 [facility] [id number]) OP Gait Assessment Comments Gait Comments Pt amb slowly w/dec push off and dec overall stability. PT-OP-J Posture/Palpation/Skin Start: 10/29/21 07:41 Freq: Status: Active Protocol: Document 10/30/21 08:22 [facility] (Rec: 10/30/21 15:52 [facility] [id number]) Posture Evaluation Comments Posture Comments inc kyphosis & fwd head PT-OP-M Strength Start: 10/29/21 07:41 Freq: Status: Active Protocol: Document 10/30/21 08:22 [facility] (Rec: 10/30/21 12:09 [facility] [id number]) Hip Strength Hip Manual Muscle Testing Right Flexion (L2) 3+ Fair+ External Rotation 3+ Fair+ Internal Rotation 3+ Fair+ Left Flexion (L2) 3+ Fair+ External Rotation 3+ Fair+ Internal Rotation 3+ Fair+ Knee Strength Knee Manual Muscle Testing Right Flexion (S2) 4 Good Extension (L3) 4 Good Left Flexion (S2) 4 Good Extension (L3) 4- Good- Ankle/Foot Strength Ankle and Foot Manual Muscle Testing Right Dorsiflexion (L4) 5 Normal Plantarflexion (S1) 4+ Good+ Left Dorsiflexion (L4) 5 Normal Plantarflexion (S1) 4+ Good+ Comments PF tested seated PT-OP-Q Treatments Start: 10/29/21 07:41 Freq: Status: Active Protocol: Document 11/27/21 07:25 [facility] (Rec: 11/27/21 09:46 [facility] [id number]) Cardio Equipment Recumbent Elliptical (Biodex) Duration (Minutes) 7 Resistance 8 Seat Position 9 Gym Equipment Shuttle Recovery Bilateral Squats Resistance 100# Shuttle Recovery Platform Stable Reps/Time 20 Shuttle Balance 2 Details red clips Comments Fwd & side: WBOS/NBOS for NBOS laterally 1 hand on bar fwd: staggered stance w/1 hand on bar prn Therapeutic Exercises Standing Exercises mini lunge Standing Exercise Name w/rail hold Side bilateral Reps/Minutes 10 squat Side bilateral Reps/Minutes 15 Comments over chair Neuro Re-Education Treatment Balance Activities SLS Comments 1. toe taps x10 B to 12 in step 2. ball roll B trials balance board Comments 1.fwd/back tilts 2. side/side wt shifts Tandem walk Comments 1. stance trials 2. tandem walk rail only prn 2x20ft 3. line walk fwd 2x20ft (not tandem) 2 Details hurdles (6) Comments 1.fwd x8 step thru 2. sidestep x2 B 3. fwd/back tap x8 B 1 Comments carioca steps 20ft B PT-OP-T Assessment and Plan Start: 10/29/21 07:41 Freq: Status: Active Protocol: Document 11/27/21 07:25 [facility] (Rec: 11/27/21 09:46 [facility] [id number]) Physical Therapy Assessment Goals activities Longterm Goal (LTG) Pt will report feeling stronger so she is able to do more household tasks in a better manner (making the bed, cooking, etc) without excessive fatigue LTG Duration 01/29/22 Dynamic balance Impairment DGI 1424; FGA 1230 Short Term Goal (STG) Pt will improve DGI score to at least 20 to show dec risk for falls. STG Duration 12/30/21 Longterm Goal (LTG) Pt will improve FGA score to at least 22/30 to show dec fall risk. LTG Duration 01/29/22 HERNANDEZ Short Term Goal (STG) pt will improve HERNANDEZ score to at least 46/56 to show she is safe ambulator w/o AD and is less likely to fall. STG Duration 12/08/21 Registered Nurse Cardiac Telemetry Goal (LTG) pt will improve HERNANDEZ score to at least 50/56 to show she is safe ambulator w/o AD outdoors and in the community. LTG Duration 01/29/22 sit to stand Short Term Goal (STG) Pt will be able to complete 5x sit to stand test. STG Duration 12/08/21 Registered Nurse Cardiac Telemetry Goal (LTG) Pt will be able to do at least 9 sit to stands in 30 sec to show improved strength & balance. LTG Duration 01/29/22 Assessment Summary Assessment Pt did well with balance activities showing more stability on shutte balance, carioca, and hurdles. She tolerated addition of squats and lunges but did show weakness and was only able to do mini versions. Physical Therapy Plan Frequency and Duration Frequency of Treatment 2x/Week Duration of Treatment 3 months Plan of Care Start Date 10/30/21 Plan of Care End Date 01/29/22 Next Visit Focus/Plan Next Note Type Treatment Note Next Visit Plan progress balance and strength exercises.
--- NOTE | 2021-12-05 14:43 | PT.OTN ---
Current Diagnoses Difficulty in walking, not elsewhere classified (12/05/21) Unsteadiness on feet (12/05/21) Abnormal posture (12/05/21) Weakness (12/05/21) Physical Therapy Treatment Note PT-OP-A Visit Information Start: 10/29/21 07:41 Freq: Status: Active Protocol: Document 12/05/21 13:15 [facility] (Rec: 12/05/21 14:42 [facility] [id number]) Out-Patient Physical Therapy Visit Information Visit Information Visit Type Progress Note Visit Note 08/05 Visit Start Time 13:00 Visit Stop Time 13:44 Total Visit Minutes 44 Visit Number 9 Number of MEDICAL LEGAL INVESTIGATOR Visits 0 PT-OP-B Current Condition Start: 10/29/21 07:41 Freq: Status: Active Protocol: Document 10/30/21 08:22 [facility] (Rec: 10/30/21 12:09 [facility] [id number]) Current Condition History of Current Condition Current Complaints falls, weakness History of Current Condition Pt reports since her stroke she has been weaker. Stroke was about 10 years ago and has done PT on/off which helps her but then she declines again. She had to hire someone for cleaning about 1 year ago d/t pt noting it just takes too long to do anything. Pt reports a couple years ago, she fell whenw alking with her friends so they won't let her walk with them anymore. She has not been in the garden for 3 years because [facility] will bend down to picker a weed and fall over. She reports she is falling more recently. She fell 3 times in the last year. One time, she fell walking backwards down the last few steps and miscounted how many steps so seh fell over. One time, she fell backing up when squeezing between a chair. Pt reports she has to be very careful walking backwards. won't walk around the block w/her because he likes to go his own pace. She was doing the strength and balance class at [facility]. Pt reports she developed a sore ( red area) on her R foot at bottom of 5th MT and she got custom insoles. She still has to wear a bandage on it to keep it from hurting. Pt reports R hip has been on/off giving her trouble but unsure what causes pain. Some days it doesn't hurt at all and sometimes it does off/on. Pt does have macular degeneration and that does liimt her too. Pt reports ever since COVID vaccine has to be care when getting up otherwise gets dizzy Treatment Goals Patient/Caregiver Goals Be able to walk again by herself, be able to do some things around the house (be able to make bed better, be able to snap lids of containers, cook more, some other clean up) PT-OP-C Subjective Start: 10/29/21 07:41 Freq: Status: Active Protocol: Document 12/05/21 13:15 [facility] (Rec: 12/05/21 14:42 [facility] [id number]) OP-PT Subjective Patient Comments Patient Comments Pt reports she feels like kamron is progressing PT-OP-D Balance Start: 10/29/21 07:41 Freq: Status: Active Protocol: Document 12/05/21 13:15 [facility] (Rec: 12/05/21 14:43 [facility] [id number]) Balance Tests Hernandez Balance Test Hernandez Balance Test Score 49 PT-OP-E Functional Tests Start: 10/29/21 07:41 Freq: Status: Active Protocol: Document 12/05/21 13:15 [facility] (Rec: 12/05/21 14:42 [facility] [id number]) Functional Tests 30 Second Sit to Stand Test Score 6 Dynamic Gait Index (DGI) Score 20 Five Times Sit to Stand Test Score 20 sec PT-OP-G Mobility & Gait Start: 10/29/21 07:41 Freq: Status: Active Protocol: Document 10/30/21 08:22 [facility] (Rec: 10/30/21 12:09 [facility] [id number]) OP Gait Assessment Comments Gait Comments Pt amb slowly w/dec push off and dec overall stability. PT-OP-J Posture/Palpation/Skin Start: 10/29/21 07:41 Freq: Status: Active Protocol: Document 10/30/21 08:22 [facility] (Rec: 10/30/21 15:52 [facility] [id number]) Posture Evaluation Comments Posture Comments inc kyphosis & fwd head PT-OP-M Strength Start: 10/29/21 07:41 Freq: Status: Active Protocol: Document 10/30/21 08:22 [facility] (Rec: 10/30/21 12:09 [facility] [id number]) Hip Strength Hip Manual Muscle Testing Right Flexion (L2) 3+ Fair+ External Rotation 3+ Fair+ Internal Rotation 3+ Fair+ Left Flexion (L2) 3+ Fair+ External Rotation 3+ Fair+ Internal Rotation 3+ Fair+ Knee Strength Knee Manual Muscle Testing Right Flexion (S2) 4 Good Extension (L3) 4 Good Left Flexion (S2) 4 Good Extension (L3) 4- Good- Ankle/Foot Strength Ankle and Foot Manual Muscle Testing Right Dorsiflexion (L4) 5 Normal Plantarflexion (S1) 4+ Good+ Left Dorsiflexion (L4) 5 Normal Plantarflexion (S1) 4+ Good+ Comments PF tested seated PT-OP-Q Treatments Start: 10/29/21 07:41 Freq: Status: Active Protocol: Document 12/05/21 13:15 [facility] (Rec: 12/05/21 14:42 [facility] [id number]) Cardio Equipment Recumbent Elliptical (Biodex) Duration (Minutes) 5 Resistance 8 Seat Position 9 Gym Equipment Shuttle Balance 2 Details red clips Comments Fwd & side: WBOS/NBOS for NBOS laterally ; WBOS wt shifts fwd: staggered stance w/1 hand on bar prn Therapeutic Exercises Standing Exercises mini lunge Standing Exercise Name w/rail hold Side bilateral Reps/Minutes 8 Therapeutic Activity Therapeutic Activity on/off ground Comments working on getting up/down from ground using lunge and bear stance position techniques. Pt can get down but cannot get up w/o UE support PT-OP-T Assessment and Plan Start: 10/29/21 07:41 Freq: Status: Active Protocol: Document 12/05/21 13:15 [facility] (Rec: 12/05/21 14:42 [facility] [id number]) Physical Therapy Assessment Goals activities Fdc Goal (LTG) Pt will report feeling stronger so she is able to do more household tasks in a better manner (making the bed, cooking, etc) without excessive fatigue 12/05-reports the fatigue is slightly better. Has good and bad days LTG Duration 01/29/22 Dynamic balance Impairment DGI ; FGA 07/25 Short Term Goal (STG) Pt will improve DGI score to at least 20 to show dec risk for falls. STG Duration achieved 12/05 Dry Pan Feeder Goal (LTG) Pt will improve FGA score to at least 22/30 to show dec fall risk. LTG Duration 01/29/22 HERNANDEZ Short Term Goal (STG) pt will improve HERNANDEZ score to at least 46/56 to show she is safe ambulator w/o AD and is less likely to fall. STG Duration achieved 49 12/05 Dry Pan Feeder Goal (LTG) pt will improve HERNANDEZ score to at least 50/56 to show she is safe ambulator w/o AD outdoors and in the community. LTG Duration 01/29/22 sit to stand Short Term Goal (STG) Pt will be able to complete 5x sit to stand test. STG Duration achieved 12/05 Dry Pan Feeder Goal (LTG) Pt will be able to do at least 9 sit to stands in 30 sec to show improved strength & balance. LTG Duration 01/29/22 Assessment Summary Assessment Pt did well with balance and is showing excellent progress. She shows dec risk for falls w/HERNANDEZ and w/DGI along w/ improved sit to stand test performance. She still had difficulty w/getting up from the ground but she can get down safely. Cont PT to focus on strength and balance. Physical Therapy Plan Frequency and Duration Frequency of Treatment 2x/Week Duration of Treatment 3 months Plan of Care Start Date 10/30/21 Plan of Care End Date 01/29/22 Therapeutic Interventions Therapeutic Interventions Aquatic Therapy,Balance Training,Gait Training,Home Exercise Program,Manual Therapy,Neuromuscular Re- education,Patient/Caregiver Education,Self-Care/Home Management,Soft Tissue Mobilization,Taping, Therapeutic Activities, Therapeutic Exercises Modalities Cold Pack/Ice Massage,Hot Packs Next Visit Focus/Plan Next Note Type Treatment Note Next Visit Plan progress balance and strength exercises.
--- NOTE | 2021-12-09 11:47 | PT.OTN ---
Current Diagnoses Difficulty in walking, not elsewhere classified (12/09/21) Unsteadiness on feet (12/09/21) Abnormal posture (12/09/21) Weakness (12/09/21) Physical Therapy Treatment Note PT-OP-A Visit Information Start: 10/29/21 07:41 Freq: Status: Active Protocol: Document 12/09/21 11:06 [facility] (Rec: 12/09/21 11:46 [facility] [id number]) Out-Patient Physical Therapy Visit Information Visit Information Visit Type Treatment Note Visit Start Time 11:05 Visit Stop Time 11:45 Total Visit Minutes 40 Visit Number 10 Number of LABORER AIRPORT MAINTENANCE Visits 1 PT-OP-B Current Condition Start: 10/29/21 07:41 Freq: Status: Active Protocol: Document 10/30/21 08:22 [facility] (Rec: 10/30/21 12:09 [facility] [id number]) Current Condition History of Current Condition Current Complaints falls, weakness History of Current Condition Pt reports since her stroke she has been weaker. Stroke was about 10 years ago and has done PT on/off which helps her but then she declines again. She had to hire someone for cleaning about 1 year ago d/t pt noting it just takes too long to do anything. Pt reports a couple years ago, she fell whenw alking with her friends so they won't let her walk with them anymore. She has not been in the garden for 3 years because [facility] will bend down to pickle maker a weed and fall over. She reports she is falling more recently. She fell 3 times in the last year. One time, she fell walking backwards down the last few steps and miscounted how many steps so seh fell over. One time, she fell backing up when squeezing between a chair. Pt reports she has to be very careful walking backwards. won't walk around the block w/her because he likes to go his own pace. She was doing the strength and balance class at [facility]. Pt reports she developed a sore ( red area) on her R foot at bottom of 5th [address] and she got custom insoles. She still has to wear a bandage on it to keep it from hurting. Pt reports R hip has been on/off giving her trouble but unsure what causes pain. Some days it doesn't hurt at all and sometimes it does off/on. Pt does have macular degeneration and that does liimt her too. Pt reports ever since COVID vaccine has to be care when getting up otherwise gets dizzy Treatment Goals Patient/Caregiver Goals Be able to walk again by herself, be able to do some things around the house (be able to make bed better, be able to snap lids of containers, cook more, some other clean up) PT-OP-C Subjective Start: 10/29/21 07:41 Freq: Status: Active Protocol: Document 12/09/21 11:06 [facility] (Rec: 12/09/21 11:46 [facility] [id number]) OP-PT Subjective Patient Comments Patient Comments Pt feels like she still drags her R foot which causes her to be more off balance. PT-OP-D Balance Start: 10/29/21 07:41 Freq: Status: Active Protocol: Document 12/05/21 13:15 [facility] (Rec: 12/05/21 14:43 [facility] [id number]) Balance Tests Hernandez Balance Test Hernandez Balance Test Score 49 PT-OP-E Functional Tests Start: 10/29/21 07:41 Freq: Status: Active Protocol: Document 12/05/21 13:15 [facility] (Rec: 12/05/21 14:42 [facility] [id number]) Functional Tests 30 Second Sit to Stand Test Score 6 Dynamic Gait Index (DGI) Score 20 Five Times Sit to Stand Test Score 20 sec PT-OP-G Mobility & Gait Start: 10/29/21 07:41 Freq: Status: Active Protocol: Document 10/30/21 08:22 [facility] (Rec: 10/30/21 12:09 [facility] [id number]) OP Gait Assessment Comments Gait Comments Pt amb slowly w/dec push off and dec overall stability. PT-OP-J Posture/Palpation/Skin Start: 10/29/21 07:41 Freq: Status: Active Protocol: Document 10/30/21 08:22 [facility] (Rec: 10/30/21 15:52 [facility] [id number]) Posture Evaluation Comments Posture Comments inc kyphosis & fwd head PT-OP-M Strength Start: 10/29/21 07:41 Freq: Status: Active Protocol: Document 10/30/21 08:22 [facility] (Rec: 10/30/21 12:09 [facility] [id number]) Hip Strength Hip Manual Muscle Testing Right Flexion (L2) 3+ Fair+ External Rotation 3+ Fair+ Internal Rotation 3+ Fair+ Left Flexion (L2) 3+ Fair+ External Rotation 3+ Fair+ Internal Rotation 3+ Fair+ Knee Strength Knee Manual Muscle Testing Right Flexion (S2) 4 Good Extension (L3) 4 Good Left Flexion (S2) 4 Good Extension (L3) 4- Good- Ankle/Foot Strength Ankle and Foot Manual Muscle Testing Right Dorsiflexion (L4) 5 Normal Plantarflexion (S1) 4+ Good+ Left Dorsiflexion (L4) 5 Normal Plantarflexion (S1) 4+ Good+ Comments PF tested seated PT-OP-Q Treatments Start: 10/29/21 07:41 Freq: Status: Active Protocol: Document 12/09/21 11:06 [facility] (Rec: 12/09/21 11:46 [facility] [id number]) Cardio Equipment Recumbent Elliptical (Biodex) Duration (Minutes) 8 Resistance 8 Seat Position 9 Gym Equipment Shuttle Balance 2 Details red clips Comments Fwd & side: WBOS/NBOS for NBOS laterally ; WBOS wt shifts fwd: staggered stance w/1 hand on bar prn Therapeutic Exercises Standing Exercises mini lunge Standing Exercise Name w/rail hold Side bilateral Reps/Minutes 10 squat Side bilateral Reps/Minutes 15 Comments holding rail-cues to avoid adduction and keep weight in heels heel raises Side bilateral Reps/Minutes 15 hip ext Standing Exercise Name fwd/back walk Side bilateral Equipment Used yellow band Reps/Minutes 2x20ft hip abd Standing Exercise Name side steps Side bilateral Equipment Used yellow band Reps/Minutes 2x20ft Neuro Re-Education Treatment Balance Activities Tandem walk Comments 1. stance trials 2. tandem walk rail only prn 2x20ft PT-OP-T Assessment and Plan Start: 10/29/21 07:41 Freq: Status: Active Protocol: Document 12/09/21 11:06 [facility] (Rec: 12/09/21 11:46 [facility] [id number]) Physical Therapy Assessment Goals activities Turnstile Attendant Goal (LTG) Pt will report feeling stronger so she is able to do more household tasks in a better manner (making the bed, cooking, etc) without excessive fatigue 12/05-reports the fatigue is slightly better. Has good and bad days LTG Duration 01/29/22 Dynamic balance Impairment DGI 14/24; FGA 07/25 Short Term Goal (STG) Pt will improve DGI score to at least 20 to show dec risk for falls. STG Duration achieved 12/05 Retirement Goal (LTG) Pt will improve FGA score to at least 22/30 to show dec fall risk. LTG Duration 01/29/22 HERNANDEZ Short Term Goal (STG) pt will improve HERNANDEZ score to at least 46/56 to show she is safe ambulator w/o AD and is less likely to fall. STG Duration achieved 49 12/05 Retirement Goal (LTG) pt will improve HERNANDEZ score to at least 50/56 to show she is safe ambulator w/o AD outdoors and in the community. LTG Duration 01/29/22 sit to stand Short Term Goal (STG) Pt will be able to complete 5x sit to stand test. STG Duration achieved 12/05 Retirement Goal (LTG) Pt will be able to do at least 9 sit to stands in 30 sec to show improved strength & balance. LTG Duration 01/29/22 Assessment Summary Assessment Pt tends to lean posteriorly on balance board but improves over time. She is showing improved strength with mini lunges and squats but has difficulty this session with tandem walking and walking fwd /backwards with resistance band around ankles. Physical Therapy Plan Frequency and Duration Frequency of Treatment 2x/Week Duration of Treatment 3 months Plan of Care Start Date 10/30/21 Plan of Care End Date 01/29/22 Therapeutic Interventions Therapeutic Interventions Aquatic Therapy,Balance Training,Gait Training,Home Exercise Program,Manual Therapy,Neuromuscular Re- education,Patient/Caregiver Education,Self-Care/Home Management,Soft Tissue Mobilization,Taping, Therapeutic Activities, Therapeutic Exercises Modalities Cold Pack/Ice Massage,Hot Packs Next Visit Focus/Plan Next Note Type Treatment Note Next Visit Plan progress balance and strength exercises.
--- NOTE | 2021-12-16 13:46 | PT.OTN ---
Current Diagnoses Difficulty in walking, not elsewhere classified (12/16/21) Unsteadiness on feet (12/16/21) Abnormal posture (12/16/21) Weakness (12/16/21) Physical Therapy Treatment Note PT-OP-A Visit Information Start: 10/29/21 07:41 Freq: Status: Active Protocol: Document 12/16/21 10:54 [facility] (Rec: 12/16/21 13:46 [facility] [id number]) Out-Patient Physical Therapy Visit Information Visit Information Visit Type Treatment Note Visit Start Time 11:06 Visit Stop Time 11:50 Total Visit Minutes 44 Visit Number 11 Number of AUTOMOBILE UPHOLSTERER APPRENTICE Visits 2 PT-OP-B Current Condition Start: 10/29/21 07:41 Freq: Status: Active Protocol: Document 10/30/21 08:22 [facility] (Rec: 10/30/21 12:09 [facility] [id number]) Current Condition History of Current Condition Current Complaints falls, weakness History of Current Condition Pt reports since her stroke she has been weaker. Stroke was about 10 years ago and has done PT on/off which helps her but then she declines again. She had to hire someone for cleaning about 1 year ago d/t pt noting it just takes too long to do anything. Pt reports a couple years ago, she fell whenw alking with her friends so they won't let her walk with them anymore. She has not been in the garden for 3 years because [facility] will bend down to cotton picker a weed and fall over. She reports she is falling more recently. She fell 3 times in the last year. One time, she fell walking backwards down the last few steps and miscounted how many steps so seh fell over. One time, she fell backing up when squeezing between a chair. Pt reports she has to be very careful walking backwards. won't walk around the block w/her because he likes to go his own pace. She was doing the strength and balance class at [facility]. Pt reports she developed a sore ( red area) on her R foot at bottom of 5th [address] and she got custom insoles. She still has to wear a bandage on it to keep it from hurting. Pt reports R hip has been on/off giving her trouble but unsure what causes pain. Some days it doesn't hurt at all and sometimes it does off/on. Pt does have macular degeneration and that does liimt her too. Pt reports ever since COVID vaccine has to be care when getting up otherwise gets dizzy Treatment Goals Patient/Caregiver Goals Be able to walk again by herself, be able to do some things around the house (be able to make bed better, be able to snap lids of containers, cook more, some other clean up) PT-OP-C Subjective Start: 10/29/21 07:41 Freq: Status: Active Protocol: Document 12/16/21 10:54 [facility] (Rec: 12/16/21 13:46 [facility] [id number]) OP-PT Subjective Patient Comments Patient Comments Viky reports she fell backwards into a chair when she stood up but a stool was right in front of her. PT-OP-D Balance Start: 10/29/21 07:41 Freq: Status: Active Protocol: Document 12/05/21 13:15 [facility] (Rec: 12/05/21 14:43 [facility] [id number]) Balance Tests Hernandez Balance Test Hernandez Balance Test Score 49 PT-OP-E Functional Tests Start: 10/29/21 07:41 Freq: Status: Active Protocol: Document 12/05/21 13:15 [facility] (Rec: 12/05/21 14:42 [facility] [id number]) Functional Tests 30 Second Sit to Stand Test Score 6 Dynamic Gait Index (DGI) Score 20 Five Times Sit to Stand Test Score 20 sec PT-OP-G Mobility & Gait Start: 10/29/21 07:41 Freq: Status: Active Protocol: Document 10/30/21 08:22 [facility] (Rec: 10/30/21 12:09 [facility] [id number]) OP Gait Assessment Comments Gait Comments Pt amb slowly w/dec push off and dec overall stability. PT-OP-J Posture/Palpation/Skin Start: 10/29/21 07:41 Freq: Status: Active Protocol: Document 10/30/21 08:22 [facility] (Rec: 10/30/21 15:52 [facility] [id number]) Posture Evaluation Comments Posture Comments inc kyphosis & fwd head PT-OP-M Strength Start: 10/29/21 07:41 Freq: Status: Active Protocol: Document 10/30/21 08:22 [facility] (Rec: 10/30/21 12:09 [facility] [id number]) Hip Strength Hip Manual Muscle Testing Right Flexion (L2) 3+ Fair+ External Rotation 3+ Fair+ Internal Rotation 3+ Fair+ Left Flexion (L2) 3+ Fair+ External Rotation 3+ Fair+ Internal Rotation 3+ Fair+ Knee Strength Knee Manual Muscle Testing Right Flexion (S2) 4 Good Extension (L3) 4 Good Left Flexion (S2) 4 Good Extension (L3) 4- Good- Ankle/Foot Strength Ankle and Foot Manual Muscle Testing Right Dorsiflexion (L4) 5 Normal Plantarflexion (S1) 4+ Good+ Left Dorsiflexion (L4) 5 Normal Plantarflexion (S1) 4+ Good+ Comments PF tested seated PT-OP-Q Treatments Start: 10/29/21 07:41 Freq: Status: Active Protocol: Document 12/16/21 10:54 [facility] (Rec: 12/16/21 13:46 [facility] [id number]) Cardio Equipment Recumbent Elliptical (Biodex) Duration (Minutes) 8 Resistance 8 Seat Position 9 Gym Equipment Shuttle Balance 2 Details blue clips Comments Fwd & side: WBOS/NBOS (balloon toss) for NBOS laterally (balloon toss) NBOS laterally EC with bar prn Therapeutic Exercises Standing Exercises Step Ups Standing Exercise Name 6 Side bilateral Reps/Minutes 1 x 10 ea Comments SBA, rail prn sit to stand Side bilateral Reps/Minutes 2 x 10, 1 x 5 rep w/ yellow band, 1 x 8 rep with blue band Comments no hands, vc for pacing and knee valgus-yellow band at knees challenging hip ext Standing Exercise Name at bar Side bilateral Equipment Used yellow band around ankles Reps/Minutes 2 x 10 each Comments vc for form/hip rotation hip abd Standing Exercise Name at bar Side bilateral Equipment Used yellow band around ankles Reps/Minutes 2 x 10 each Comments vc for lateral trunk lean Neuro Re-Education Treatment Balance Activities SLS Details bilateral Surface firm Comments 1 x 30 sec each, rail prn; frequent toe touch for balance recovery LLE>RLE. Added SLS corner balance to HEP. Self-Care/Home Management Treatment Education Patient Education Home Exercise Program Other Education Added SLS corner balance to HEP. PT-OP-T Assessment and Plan Start: 10/29/21 07:41 Freq: Status: Active Protocol: Document 12/16/21 10:54 [facility] (Rec: 12/16/21 13:46 [facility] [id number]) Physical Therapy Assessment Goals activities Prison Goal (LTG) Pt will report feeling stronger so she is able to do more household tasks in a better manner (making the bed, cooking, etc) without excessive fatigue 12/05-reports the fatigue is slightly better. Has good and bad days LTG Duration 01/29/22 Dynamic balance Impairment DGI 14/24; FGA 1230 Short Term Goal (STG) Pt will improve DGI score to at least 20 to show dec risk for falls. STG Duration achieved 12/05 Technologist Development Goal (LTG) Pt will improve FGA score to at least 22/30 to show dec fall risk. LTG Duration 01/29/22 HERNANDEZ Short Term Goal (STG) pt will improve HERNANDEZ score to at least 46/56 to show she is safe ambulator w/o AD and is less likely to fall. STG Duration achieved 49 12/05 Prison Goal (LTG) pt will improve HERNANDEZ score to at least 50/56 to show she is safe ambulator w/o AD outdoors and in the community. LTG Duration 01/29/22 sit to stand Short Term Goal (STG) Pt will be able to complete 5x sit to stand test. STG Duration achieved 12/05 Technologist Development Goal (LTG) Pt will be able to do at least 9 sit to stands in 30 sec to show improved strength & balance. LTG Duration 01/29/22 Assessment Summary Assessment Viky was stand by assist with step ups and used the rail only occasionally showing improved balance. She continues to adduct knees when sitting, which improved with blue theraband around knees. She requires verbal cueing for pacing and control when sitting. Added SLS corner balance to HEP. Physical Therapy Plan Frequency and Duration Frequency of Treatment 2x/Week Duration of Treatment 3 months Plan of Care Start Date 10/30/21 Plan of Care End Date 01/29/22 Therapeutic Interventions Therapeutic Interventions Aquatic Therapy,Balance Training,Gait Training,Home Exercise Program,Manual Therapy,Neuromuscular Re- education,Patient/Caregiver Education,Self-Care/Home Management,Soft Tissue Mobilization,Taping, Therapeutic Activities, Therapeutic Exercises Modalities Cold Pack/Ice Massage,Hot Packs Next Visit Focus/Plan Next Note Type Treatment Note Next Visit Plan Reassess SLS in corner from HEP progress balance and strength exercises.
--- NOTE | 2021-12-19 13:27 | PT.OTN ---
Current Diagnoses Difficulty in walking, not elsewhere classified (12/19/21) Unsteadiness on feet (12/19/21) Abnormal posture (12/19/21) Weakness (12/19/21) Physical Therapy Treatment Note PT-OP-A Visit Information Start: 10/29/21 07:41 Freq: Status: Active Protocol: Document 12/19/21 09:29 [facility] (Rec: 12/19/21 13:23 NB [id number]) Out-Patient Physical Therapy Visit Information Visit Information Visit Type Treatment Note Visit Start Time 09:31 Visit Stop Time 10:14 Total Visit Minutes 43 Visit Number 12 Number of VAN CDL DRIVER Visits 3 PT-OP-B Current Condition Start: 10/29/21 07:41 Freq: Status: Active Protocol: Document 10/30/21 08:22 [facility] (Rec: 10/30/21 12:09 [facility] [id number]) Current Condition History of Current Condition Current Complaints falls, weakness History of Current Condition Pt reports since her stroke she has been weaker. Stroke was about 10 years ago and has done PT on/off which helps her but then she declines again. She had to hire someone for cleaning about 1 year ago d/t pt noting it just takes too long to do anything. Pt reports a couple years ago, she fell whenw alking with her friends so they won't let her walk with them anymore. She has not been in the garden for 3 years because [facility] will bend down to pickle solution maker a weed and fall over. She reports she is falling more recently. She fell 3 times in the last year. One time, she fell walking backwards down the last few steps and miscounted how many steps so seh fell over. One time, she fell backing up when squeezing between a chair. Pt reports she has to be very careful walking backwards. won't walk around the block w/her because he likes to go his own pace. She was doing the strength and balance class at [facility]. Pt reports she developed a sore ( red area) on her R foot at bottom of 5th MT and she got custom insoles. She still has to wear a bandage on it to keep it from hurting. Pt reports R hip has been on/off giving her trouble but unsure what causes pain. Some days it doesn't hurt at all and sometimes it does off/on. Pt does have macular degeneration and that does liimt her too. Pt reports ever since COVID vaccine has to be care when getting up otherwise gets dizzy Treatment Goals Patient/Caregiver Goals Be able to walk again by herself, be able to do some things around the house (be able to make bed better, be able to snap lids of containers, cook more, some other clean up) PT-OP-C Subjective Start: 10/29/21 07:41 Freq: Status: Active Protocol: Document 12/19/21 09:29 [facility] (Rec: 12/19/21 13:23 [facility] [id number]) OP-PT Subjective Patient Comments Patient Comments Viky reports she was tired after the last session and took a two-hour nap. She enjoyed the work done in the last session. She reports no more falls. She tried SLS from her HEP but felt she was more successful with it at PT because of the encouragement received at PT. Her right hip feels more tired today. PT-OP-D Balance Start: 10/29/21 07:41 Freq: Status: Active Protocol: Document 12/05/21 13:15 [facility] (Rec: 12/05/21 14:43 [facility] [id number]) Balance Tests Schaefer Balance Test Schaefer Balance Test Score 49 PT-OP-E Functional Tests Start: 10/29/21 07:41 Freq: Status: Active Protocol: Document 12/05/21 13:15 [facility] (Rec: 12/05/21 14:42 [facility] [id number]) Functional Tests 30 Second Sit to Stand Test Score 6 Dynamic Gait Index (DGI) Score 20 Five Times Sit to Stand Test Score 20 sec PT-OP-G Mobility & Gait Start: 10/29/21 07:41 Freq: Status: Active Protocol: Document 10/30/21 08:22 [facility] (Rec: 10/30/21 12:09 [facility] [id number]) OP Gait Assessment Comments Gait Comments Pt amb slowly w/dec push off and dec overall stability. PT-OP-J Posture/Palpation/Skin Start: 10/29/21 07:41 Freq: Status: Active Protocol: Document 10/30/21 08:22 [facility] (Rec: 10/30/21 15:52 [facility] [id number]) Posture Evaluation Comments Posture Comments inc kyphosis & fwd head PT-OP-M Strength Start: 10/29/21 07:41 Freq: Status: Active Protocol: Document 10/30/21 08:22 [facility] (Rec: 10/30/21 12:09 [facility] [id number]) Hip Strength Hip Manual Muscle Testing Right Flexion (L2) 3+ Fair+ External Rotation 3+ Fair+ Internal Rotation 3+ Fair+ Left Flexion (L2) 3+ Fair+ External Rotation 3+ Fair+ Internal Rotation 3+ Fair+ Knee Strength Knee Manual Muscle Testing Right Flexion (S2) 4 Good Extension (L3) 4 Good Left Flexion (S2) 4 Good Extension (L3) 4- Good- Ankle/Foot Strength Ankle and Foot Manual Muscle Testing Right Dorsiflexion (L4) 5 Normal Plantarflexion (S1) 4+ Good+ Left Dorsiflexion (L4) 5 Normal Plantarflexion (S1) 4+ Good+ Comments PF tested seated PT-OP-Q Treatments Start: 10/29/21 07:41 Freq: Status: Active Protocol: Document 12/19/21 09:29 [facility] (Rec: 12/19/21 13:23 [facility] [id number]) Cardio Equipment Recumbent Elliptical (Biodex) Duration (Minutes) 8 Resistance 8 Seat Position 9 Therapeutic Exercises Standing Exercises Step Ups Standing Exercise Name 4 Side bilateral Equipment Used w/ mirror Reps/Minutes 1 x 10 ea Comments CGA, rail prn, focus on level hips Marches Side bilateral Equipment Used w/ mirror Reps/Minutes 20x w/o rail Comments verbal and tactile cueing for keeping hips level sit to stand Side bilateral Reps/Minutes 1 x 10, 1x10 w/ Lvl 3 TB ( given to use with HEP) Comments no hands, tactile cueing to avoid adduction corrected w/ Lvl 3 TB hip ext Standing Exercise Name fwd/back walk Side bilateral Equipment Used yellow band Reps/Minutes 2x20ft Comments vc for toes forward hip abd Standing Exercise Name side steps Side bilateral Equipment Used yellow band Reps/Minutes 2x20ft Comments vc for toes forward Therapeutic Activity Therapeutic Activity Stairs Name 6 Reps/Minutes 3' Comments SBA, one rail. Focus on maintaining level hips. Neuro Re-Education Treatment Balance Activities SLS Details bilateral Surface firm Comments Reviewed SLS for HEP 1 x 30 sec each facing the corner with CREDIT OR LOANS OFFICER. Started with both hands on chin, then two fingers, then lifting one hand off. Instructed to keep eyes open for this exercise for now. Self-Care/Home Management Treatment Education Patient Education Home Exercise Program Caregiver Education SLS: Use corner. Started with both hands on chin, then two fingers, then lifting one hand off. Instructed to keep EO for now as EC is too challenging. Sit<>Stand: Added Lvl 3 Tb above knees for tactile cueing to reduce adduction. Other Education Progression/Review PT-OP-T Assessment and Plan Start: 10/29/21 07:41 Freq: Status: Active Protocol: Document 12/19/21 09:29 [facility] (Rec: 12/19/21 13:23 [facility] [id number]) Physical Therapy Assessment Goals activities Assisted Goal (LTG) Pt will report feeling stronger so she is able to do more household tasks in a better manner (making the bed, cooking, etc) without excessive fatigue 12/05-reports the fatigue is slightly better. Has good and bad days LTG Duration 01/29/22 Dynamic balance Impairment DGI 1424; FGA 07/25 Short Term Goal (STG) Pt will improve DGI score to at least 20 to show dec risk for falls. STG Duration achieved 12/05 Assisted Goal (LTG) Pt will improve FGA score to at least 22/30 to show dec fall risk. LTG Duration 01/29/22 SCHAEFER Short Term Goal (STG) pt will improve SCHAEFER score to at least 46/56 to show she is safe ambulator w/o AD and is less likely to fall. STG Duration achieved 49 12/05 Assisted Goal (LTG) pt will improve SCHAEFER score to at least 50/56 to show she is safe ambulator w/o AD outdoors and in the community. LTG Duration 01/29/22 sit to stand Short Term Goal (STG) Pt will be able to complete 5x sit to stand test. STG Duration achieved 12/05 Assisted Goal (LTG) Pt will be able to do at least 9 sit to stands in 30 sec to show improved strength & balance. LTG Duration 01/29/22 Assessment Summary Assessment Viky requires verbal and tactile cueing for avoiding excessive hip drop with balance activites and exercise . She responded well to neurofeedback with the mirror and demonstrated improved self -awareness on the stairs. She continues to need verbal cueing for neutral foot placement. Physical Therapy Plan Next Visit Focus/Plan Next Note Type Treatment Note Next Visit Plan Reassess Sit<>Stand w/ Tband above knees and SLS in corner from HEP progress balance and strength exercises.
--- NOTE | 2021-12-25 09:55 | PT.OTN ---
Current Diagnoses Difficulty in walking, not elsewhere classified (12/25/21) Unsteadiness on feet (12/25/21) Abnormal posture (12/25/21) Weakness (12/25/21) Physical Therapy Treatment Note PT-OP-A Visit Information Start: 10/29/21 07:41 Freq: Status: Active Protocol: Document 12/25/21 09:16 [facility] (Rec: 12/25/21 09:55 [facility] [id number]) Out-Patient Physical Therapy Visit Information Visit Information Visit Type Treatment Note Visit Note 12/03 Visit Start Time 09:06 Visit Stop Time 09:45 Total Visit Minutes 39 Visit Number 13 Number of ANDROID DEVELOPER Visits 0 PT-OP-B Current Condition Start: 10/29/21 07:41 Freq: Status: Active Protocol: Document 10/30/21 08:22 [facility] (Rec: 10/30/21 12:09 [facility] [id number]) Current Condition History of Current Condition Current Complaints falls, weakness History of Current Condition Pt reports since her stroke she has been weaker. Stroke was about 10 years ago and has done PT on/off which helps her but then she declines again. She had to hire someone for cleaning about 1 year ago d/t pt noting it just takes too long to do anything. Pt reports a couple years ago, she fell whenw alking with her friends so they won't let her walk with them anymore. She has not been in the garden for 3 years because [place] [place] will bend down to hot die picker a weed and fall over. She reports she is falling more recently. She fell 3 times in the last year. One time, she fell walking backwards down the last few steps and miscounted how many steps so seh fell over. One time, she fell backing up when squeezing between a chair. Pt reports she has to be very careful walking backwards. won't walk around the block w/her because he likes to go his own pace. She was doing the strength and balance class at [employer]. Pt reports she developed a sore ( red area) on her R foot at bottom of 5th [address] and she got custom insoles. She still has to wear a bandage on it to keep it from hurting. Pt reports R hip has been on/off giving her trouble but unsure what causes pain. Some days it doesn't hurt at all and sometimes it does off/on. Pt does have macular degeneration and that does liimt her too. Pt reports ever since COVID vaccine has to be care when getting up otherwise gets dizzy Treatment Goals Patient/Caregiver Goals Be able to walk again by herself, be able to do some things around the house (be able to make bed better, be able to snap lids of containers, cook more, some other clean up) PT-OP-C Subjective Start: 10/29/21 07:41 Freq: Status: Active Protocol: Document 12/25/21 09:16 [facility] (Rec: 12/25/21 09:55 [facility] [id number]) OP-PT Subjective Patient Comments Patient Comments Pt reports she doesn't feel like really wants to do anything PT-OP-D Balance Start: 10/29/21 07:41 Freq: Status: Active Protocol: Document 12/05/21 13:15 [facility] (Rec: 12/05/21 14:43 [facility] [id number]) Balance Tests Hernandez Balance Test Hernandez Balance Test Score 49 PT-OP-E Functional Tests Start: 10/29/21 07:41 Freq: Status: Active Protocol: Document 12/05/21 13:15 [facility] (Rec: 12/05/21 14:42 [facility] [id number]) Functional Tests 30 Second Sit to Stand Test Score 6 Dynamic Gait Index (DGI) Score 20 Five Times Sit to Stand Test Score 20 sec PT-OP-G Mobility & Gait Start: 10/29/21 07:41 Freq: Status: Active Protocol: Document 10/30/21 08:22 [facility] (Rec: 10/30/21 12:09 [facility] [id number]) OP Gait Assessment Comments Gait Comments Pt amb slowly w/dec push off and dec overall stability. PT-OP-J Posture/Palpation/Skin Start: 10/29/21 07:41 Freq: Status: Active Protocol: Document 10/30/21 08:22 [facility] (Rec: 10/30/21 15:52 [facility] [id number]) Posture Evaluation Comments Posture Comments inc kyphosis & fwd head PT-OP-M Strength Start: 10/29/21 07:41 Freq: Status: Active Protocol: Document 10/30/21 08:22 [facility] (Rec: 10/30/21 12:09 [facility] [id number]) Hip Strength Hip Manual Muscle Testing Right Flexion (L2) 3+ Fair+ External Rotation 3+ Fair+ Internal Rotation 3+ Fair+ Left Flexion (L2) 3+ Fair+ External Rotation 3+ Fair+ Internal Rotation 3+ Fair+ Knee Strength Knee Manual Muscle Testing Right Flexion (S2) 4 Good Extension (L3) 4 Good Left Flexion (S2) 4 Good Extension (L3) 4- Good- Ankle/Foot Strength Ankle and Foot Manual Muscle Testing Right Dorsiflexion (L4) 5 Normal Plantarflexion (S1) 4+ Good+ Left Dorsiflexion (L4) 5 Normal Plantarflexion (S1) 4+ Good+ Comments PF tested seated PT-OP-Q Treatments Start: 10/29/21 07:41 Freq: Status: Active Protocol: Document 12/25/21 09:16 [facility] (Rec: 12/25/21 09:55 [facility] [id number]) Gym Equipment Shuttle Rebound standing Comments marching x15 B Shuttle Balance 2 Details red clips Comments fwd & side: WBOS balanace, WBOS wt shifts, 10 squats ea Therapeutic Exercises Standing Exercises Step Ups Standing Exercise Name 6 in Side bilateral Reps/Minutes 1 x 10 ea Comments no rail hip ext Standing Exercise Name fwd/back walk Side bilateral Equipment Used L2 Reps/Minutes 2x20ft Comments vc for toes forward hip abd Standing Exercise Name side steps Side bilateral Equipment Used L2 Reps/Minutes 2x20ft Comments vc for toes forward Neuro Re-Education Treatment Balance Activities SLS Comments 1. trials B 2. toe taps to 16 in step x15 B 2 Details hurdles (6) Comments 1.fwd x6 step thru 2. sidestep x2 B 1 Details fwd walk thru Surface blue, villegas, black and green tpads/faom Reps/Duration 10 PT-OP-T Assessment and Plan Start: 10/29/21 07:41 Freq: Status: Active Protocol: Document 12/25/21 09:16 [facility] (Rec: 12/25/21 09:55 [facility] [id number]) Physical Therapy Assessment Goals activities Canine Enforcement Officer Goal (LTG) Pt will report feeling stronger so she is able to do more household tasks in a better manner (making the bed, cooking, etc) without excessive fatigue 12/05-reports the fatigue is slightly better. Has good and bad days LTG Duration 01/29/22 Dynamic balance Impairment DGI ; FGA 07/25 Short Term Goal (STG) Pt will improve DGI score to at least 20 to show dec risk for falls. STG Duration achieved 12/05 Canine Enforcement Officer Goal (LTG) Pt will improve FGA score to at least 22/30 to show dec fall risk. LTG Duration 01/29/22 HERNANDEZ Short Term Goal (STG) pt will improve HERNANDEZ score to at least 46/56 to show she is safe ambulator w/o AD and is less likely to fall. STG Duration achieved 49 12/05 Longterm Goal (LTG) pt will improve HERNANDEZ score to at least 50/56 to show she is safe ambulator w/o AD outdoors and in the community. LTG Duration 01/29/22 sit to stand Short Term Goal (STG) Pt will be able to complete 5x sit to stand test. STG Duration achieved 12/05 Longterm Goal (LTG) Pt will be able to do at least 9 sit to stands in 30 sec to show improved strength & balance. LTG Duration 01/29/22 Assessment Summary Assessment Pt did well with balance and was able to d omore balance on red clips w/cues to avoid hand use. Improved stability overall w/hurdles and other activities. Physical Therapy Plan Frequency and Duration Frequency of Treatment 2x/Week Duration of Treatment 3 months Plan of Care Start Date 10/30/21 Plan of Care End Date 01/29/22 Next Visit Focus/Plan Next Note Type Treatment Note
--- NOTE | 2021-12-30 13:47 | PT.OTN ---
Current Diagnoses Unsteadiness on feet (12/30/21) Abnormal posture (12/30/21) Weakness (12/30/21) Physical Therapy Treatment Note PT-OP-A Visit Information Start: 10/29/21 07:41 Freq: Status: Active Protocol: Document 12/30/21 13:05 [facility] (Rec: 12/30/21 13:47 [facility] [id number]) Out-Patient Physical Therapy Visit Information Visit Information Visit Type Treatment Note Visit Note 01/03 Visit Start Time 13:01 Visit Stop Time 13:43 Total Visit Minutes 42 Visit Number 14 Number of EDUCATIONAL INSTITUTION PRESIDENT Visits 0 PT-OP-B Current Condition Start: 10/29/21 07:41 Freq: Status: Active Protocol: Document 10/30/21 08:22 [facility] (Rec: 10/30/21 12:09 [facility] [id number]) Current Condition History of Current Condition Current Complaints falls, weakness History of Current Condition Pt reports since her stroke she has been weaker. Stroke was about 10 years ago and has done PT on/off which helps her but then she declines again. She had to hire someone for cleaning about 1 year ago d/t pt noting it just takes too long to do anything. Pt reports a couple years ago, she fell whenw alking with her friends so they won't let her walk with them anymore. She has not been in the garden for 3 years because [facility] will bend down to pharmacy picking technician a weed and fall over. She reports she is falling more recently. She fell 3 times in the last year. One time, she fell walking backwards down the last few steps and miscounted how many steps so seh fell over. One time, she fell backing up when squeezing between a chair. Pt reports she has to be very careful walking backwards. won't walk around the block w/her because he likes to go his own pace. She was doing the strength and balance class at [facility]. Pt reports she developed a sore ( red area) on her R foot at bottom of 5th [address] and she got custom insoles. She still has to wear a bandage on it to keep it from hurting. Pt reports R hip has been on/off giving her trouble but unsure what causes pain. Some days it doesn't hurt at all and sometimes it does off/on. Pt does have macular degeneration and that does liimt her too. Pt reports ever since COVID vaccine has to be care when getting up otherwise gets dizzy Treatment Goals Patient/Caregiver Goals Be able to walk again by herself, be able to do some things around the house (be able to make bed better, be able to snap lids of containers, cook more, some other clean up) PT-OP-C Subjective Start: 10/29/21 07:41 Freq: Status: Active Protocol: Document 12/30/21 13:05 [facility] (Rec: 12/30/21 13:47 [facility] [id number]) OP-PT Subjective Patient Comments Patient Comments Sat pt walked [place] (.75 mile) PT-OP-D Balance Start: 10/29/21 07:41 Freq: Status: Active Protocol: Document 12/05/21 13:15 [facility] (Rec: 12/05/21 14:43 [facility] [id number]) Balance Tests Hernandez Balance Test Hernandez Balance Test Score 49 PT-OP-E Functional Tests Start: 10/29/21 07:41 Freq: Status: Active Protocol: Document 12/05/21 13:15 [facility] (Rec: 12/05/21 14:42 [facility] [id number]) Functional Tests 30 Second Sit to Stand Test Score 6 Dynamic Gait Index (DGI) Score 20 Five Times Sit to Stand Test Score 20 sec PT-OP-G Mobility & Gait Start: 10/29/21 07:41 Freq: Status: Active Protocol: Document 10/30/21 08:22 [facility] (Rec: 10/30/21 12:09 [facility] [id number]) OP Gait Assessment Comments Gait Comments Pt amb slowly w/dec push off and dec overall stability. PT-OP-J Posture/Palpation/Skin Start: 10/29/21 07:41 Freq: Status: Active Protocol: Document 10/30/21 08:22 [facility] (Rec: 10/30/21 15:52 [facility] [id number]) Posture Evaluation Comments Posture Comments inc kyphosis & fwd head PT-OP-M Strength Start: 10/29/21 07:41 Freq: Status: Active Protocol: Document 10/30/21 08:22 [facility] (Rec: 10/30/21 12:09 [facility] [id number]) Hip Strength Hip Manual Muscle Testing Right Flexion (L2) 3+ Fair+ External Rotation 3+ Fair+ Internal Rotation 3+ Fair+ Left Flexion (L2) 3+ Fair+ External Rotation 3+ Fair+ Internal Rotation 3+ Fair+ Knee Strength Knee Manual Muscle Testing Right Flexion (S2) 4 Good Extension (L3) 4 Good Left Flexion (S2) 4 Good Extension (L3) 4- Good- Ankle/Foot Strength Ankle and Foot Manual Muscle Testing Right Dorsiflexion (L4) 5 Normal Plantarflexion (S1) 4+ Good+ Left Dorsiflexion (L4) 5 Normal Plantarflexion (S1) 4+ Good+ Comments PF tested seated PT-OP-Q Treatments Start: 10/29/21 07:41 Freq: Status: Active Protocol: Document 12/30/21 13:05 [facility] (Rec: 12/30/21 13:47 [facility] [id number]) Cardio Equipment Recumbent Elliptical (Biodex) Duration (Minutes) 6 Resistance 8 Seat Position 9 Gym Equipment Shuttle Rebound standing Comments marching x15 B Shuttle Balance 2 Details red clips Comments fwd & side: WBOS balanace, WBOS wt shifts, 10 squats ea , NBOS fwd; staggered stance balance Therapeutic Exercises Standing Exercises Step Ups Standing Exercise Name 8 in Side bilateral Reps/Minutes 1 x 10 ea Comments no rail heel raises Side bilateral Reps/Minutes 20 sit to stand Side bilateral Equipment Used lvl 3 tband at knees Reps/Minutes 10 Comments no hands Neuro Re-Education Treatment Balance Activities SLS Comments 1. trials B 2. toe taps to 16 in step x15 B Tandem walk Comments 1. tandem stance B 2. tandem walk 2x20ft obstacle course Details fwd walk thru Surface blue, villegas, black and green tpads/faom Reps/Duration 10 2 Details hurdles (6) Comments 1.fwd x6 step thru 2. sidestep x2 B 1 Details caricoa Reps/Duration 15 ft ea PT-OP-T Assessment and Plan Start: 10/29/21 07:41 Freq: Status: Active Protocol: Document 12/30/21 13:05 [facility] (Rec: 12/30/21 13:47 [facility] [id number]) Physical Therapy Assessment Goals activities Tool Keeper Goal (LTG) Pt will report feeling stronger so she is able to do more household tasks in a better manner (making the bed, cooking, etc) without excessive fatigue 5/12-reports the fatigue is slightly better. Has good and bad days LTG Duration 01/29/22 Dynamic balance Impairment DGI 14/24; FGA 07/25 Short Term Goal (STG) Pt will improve DGI score to at least 20 to show dec risk for falls. STG Duration achieved 12/05 Tool Keeper Goal (LTG) Pt will improve FGA score to at least 22/30 to show dec fall risk. LTG Duration 01/29/22 HERNANDEZ Short Term Goal (STG) pt will improve HERNANDEZ score to at least 46/56 to show she is safe ambulator w/o AD and is less likely to fall. STG Duration achieved 49 12/05 Senior Care Goal (LTG) pt will improve HERNANDEZ score to at least 50/56 to show she is safe ambulator w/o AD outdoors and in the community. LTG Duration 01/29/22 sit to stand Short Term Goal (STG) Pt will be able to complete 5x sit to stand test. STG Duration achieved 12/05 Senior Care Goal (LTG) Pt will be able to do at least 9 sit to stands in 30 sec to show improved strength & balance. LTG Duration 01/29/22 Assessment Summary Assessment Pt was much more smooth with balance exercises today especially dynamic activities. Still challenged by blaance board and requires cues to try ot use LEs and body to catch balance vs hands Physical Therapy Plan Frequency and Duration Frequency of Treatment 2x/Week Duration of Treatment 3 months Plan of Care Start Date 10/30/21 Plan of Care End Date 01/29/22 Next Visit Focus/Plan Next Note Type Treatment Note Next Visit Plan cont to advance strength and balance
--- NOTE | 2022-01-01 12:52 | PT.OTN ---
Current Diagnoses Unsteadiness on feet (01/01/22) Abnormal posture (01/01/22) Weakness (01/01/22) Physical Therapy Treatment Note PT-OP-A Visit Information Start: 10/29/21 07:41 Freq: Status: Active Protocol: Document 01/01/22 12:03 MA (Rec: 01/01/22 12:52 MA [id number]) Out-Patient Physical Therapy Visit Information Visit Information Visit Type Treatment Note Visit Note 02/02 Visit Start Time 12:02 Visit Stop Time 12:43 Total Visit Minutes 41 Visit Number 15 Number of EDITOR MANAGING DIRECTOR Visits 1 PT-OP-B Current Condition Start: 10/29/21 07:41 Freq: Status: Active Protocol: Document 10/30/21 08:22 [facility] (Rec: 10/30/21 12:09 [facility] [id number]) Current Condition History of Current Condition Current Complaints falls, weakness History of Current Condition Pt reports since her stroke she has been weaker. Stroke was about 10 years ago and has done PT on/off which helps her but then she declines again. She had to hire someone for cleaning about 1 year ago d/t pt noting it just takes too long to do anything. Pt reports a couple years ago, she fell whenw alking with her friends so they won't let her walk with them anymore. She has not been in the garden for 3 years because [facility] to [facility] remover a weed and fall over. She reports she is falling more recently. She fell 3 times in the last year. One time, she fell walking backwards down the last few steps and miscounted how many steps so seh fell over. One time, she fell backing up when squeezing between a chair. Pt reports she has to be very careful walking backwards. won't walk around the block w/her because he likes to go his own pace. She was doing the strength and balance class at [facility]. Pt reports she developed a sore ( red area) on her R foot at bottom of 5th MT and she got custom insoles. She still has to wear a bandage on it to keep it from hurting. Pt reports R hip has been on/off giving her trouble but unsure what causes pain. Some days it doesn't hurt at all and sometimes it does off/on. Pt does have macular degeneration and that does liimt her too. Pt reports ever since COVID vaccine has to be care when getting up otherwise gets dizzy Treatment Goals Patient/Caregiver Goals Be able to walk again by herself, be able to do some things around the house (be able to make bed better, be able to snap lids of containers, cook more, some other clean up) PT-OP-C Subjective Start: 10/29/21 07:41 Freq: Status: Active Protocol: Document 01/01/22 12:03 MA (Rec: 01/01/22 12:52 MA [id number]) OP-PT Subjective Patient Comments Patient Comments Pt reports being happy she felt comfortable on the [place] last weekend. She feels her balance has improved if she doesn't go quickly. PT-OP-D Balance Start: 10/29/21 07:41 Freq: Status: Active Protocol: Document 12/05/21 13:15 [facility] (Rec: 12/05/21 14:43 [facility] [id number]) Balance Tests Hernandez Balance Test Hernandez Balance Test Score 49 PT-OP-E Functional Tests Start: 10/29/21 07:41 Freq: Status: Active Protocol: Document 12/05/21 13:15 [facility] (Rec: 12/05/21 14:42 [facility] [id number]) Functional Tests 30 Second Sit to Stand Test Score 6 Dynamic Gait Index (DGI) Score 20 Five Times Sit to Stand Test Score 20 sec PT-OP-G Mobility & Gait Start: 10/29/21 07:41 Freq: Status: Active Protocol: Document 10/30/21 08:22 [facility] (Rec: 10/30/21 12:09 [facility] [id number]) OP Gait Assessment Comments Gait Comments Pt amb slowly w/dec push off and dec overall stability. PT-OP-J Posture/Palpation/Skin Start: 10/29/21 07:41 Freq: Status: Active Protocol: Document 10/30/21 08:22 [facility] (Rec: 10/30/21 15:52 [facility] [id number]) Posture Evaluation Comments Posture Comments inc kyphosis & fwd head PT-OP-M Strength Start: 10/29/21 07:41 Freq: Status: Active Protocol: Document 10/30/21 08:22 [facility] (Rec: 10/30/21 12:09 [facility] [id number]) Hip Strength Hip Manual Muscle Testing Right Flexion (L2) 3+ Fair+ External Rotation 3+ Fair+ Internal Rotation 3+ Fair+ Left Flexion (L2) 3+ Fair+ External Rotation 3+ Fair+ Internal Rotation 3+ Fair+ Knee Strength Knee Manual Muscle Testing Right Flexion (S2) 4 Good Extension (L3) 4 Good Left Flexion (S2) 4 Good Extension (L3) 4- Good- Ankle/Foot Strength Ankle and Foot Manual Muscle Testing Right Dorsiflexion (L4) 5 Normal Plantarflexion (S1) 4+ Good+ Left Dorsiflexion (L4) 5 Normal Plantarflexion (S1) 4+ Good+ Comments PF tested seated PT-OP-Q Treatments Start: 10/29/21 07:41 Freq: Status: Active Protocol: Document 01/01/22 12:03 MA (Rec: 01/01/22 12:52 MA [id number]) Cardio Equipment Recumbent Elliptical ([employer]) Duration (Minutes) 6 Resistance 8 Seat Position 9 Therapeutic Exercises Standing Exercises Step Ups Standing Exercise Name 8 in Side bilateral Reps/Minutes 1 x 10 ea Comments 2x Min A due to LOB mini lunge Standing Exercise Name rail prn Side bilateral Reps/Minutes 10 heel raises Side bilateral Reps/Minutes 20 sit to stand Side bilateral Equipment Used lvl 3 tband at knees Reps/Minutes 10 Comments no hands hip ext Standing Exercise Name fwd/back walk Side bilateral Equipment Used yellow band Reps/Minutes 2x20ft Comments vc for toes forward hip abd Standing Exercise Name 1. hip abd 2. lateral band walk Side bilateral Equipment Used yellow band Reps/Minutes 2x20ft Comments vc for toes forward Neuro Re-Education Treatment Balance Activities SLS Equipment rail prn-CGA Comments 1. SLS trials 2. tapping 6 cone Tandem walk Comments 1. Tandem stance blue foam 2. tandem stance blue foam with balloon toss 3. tandem walk fwd 2x20 ft 2 Details hurdles (6) Comments Hurdles with greeen and blue foam in between each step for uneven surface balance challenge 1 Details caricoa Reps/Duration 15 ft ea PT-OP-T Assessment and Plan Start: 10/29/21 07:41 Freq: Status: Active Protocol: Document 01/01/22 12:03 MA (Rec: 01/01/22 12:52 MA [id number]) Physical Therapy Assessment Goals activities Mcfp Goal (LTG) Pt will report feeling stronger so she is able to do more household tasks in a better manner (making the bed, cooking, etc) without excessive fatigue 12/05-reports the fatigue is slightly better. Has good and bad days LTG Duration 01/29/22 Dynamic balance Impairment DGI 1424; FGA 07/25 Short Term Goal (STG) Pt will improve DGI score to at least 20 to show dec risk for falls. STG Duration achieved 12/05 Banquet Server On Call Goal (LTG) Pt will improve FGA score to at least 22/30 to show dec fall risk. LTG Duration 01/29/22 HERNANDEZ Short Term Goal (STG) pt will improve HERNANDEZ score to at least 46/56 to show she is safe ambulator w/o AD and is less likely to fall. STG Duration achieved 49 12/05 Mcfp Goal (LTG) pt will improve HERNANDEZ score to at least 50/56 to show she is safe ambulator w/o AD outdoors and in the community. LTG Duration 01/29/22 sit to stand Short Term Goal (STG) Pt will be able to complete 5x sit to stand test. STG Duration achieved 12/05 Mcfp Goal (LTG) Pt will be able to do at least 9 sit to stands in 30 sec to show improved strength & balance. LTG Duration 01/29/22 Assessment Summary Assessment Pt did well with balance exercises but was challenged by balloon toss while in tandem stance on blue foam pads. She was able to walk over hurdles with uneven surfaces between each step using rail prn. She is improving hip alignment during sit<>stands without using a band for external cue today. She has some difficulty balancing during mini lunges when RLE is fwd but is able to complete exercise without rail when LLE is fwd. Physical Therapy Plan Frequency and Duration Frequency of Treatment 2x/Week Duration of Treatment 3 months Plan of Care Start Date 10/30/21 Plan of Care End Date 01/29/22 Therapeutic Interventions Therapeutic Interventions Aquatic Therapy,Balance Training,Gait Training,Home Exercise Program,Manual Therapy,Neuromuscular Re- education,Patient/Caregiver Education,Self-Care/Home Management,Soft Tissue Mobilization,Taping, Therapeutic Activities, Therapeutic Exercises Modalities Cold Pack/Ice Massage,Hot Packs Next Visit Focus/Plan Next Note Type Treatment Note Next Visit Plan cont to advance strength and balance
--- NOTE | 2022-01-06 16:40 | PT.OTN ---
Current Diagnoses Unsteadiness on feet (01/06/22) Abnormal posture (01/06/22) Weakness (01/06/22) Physical Therapy Treatment Note PT-OP-A Visit Information Start: 10/29/21 07:41 Freq: Status: Active Protocol: Document 01/06/22 13:57 [facility] (Rec: 01/06/22 16:40 NB [id number]) Out-Patient Physical Therapy Visit Information Visit Information Visit Type Treatment Note Visit Note 03/05 Visit Start Time 13:55 Visit Stop Time 14:38 Total Visit Minutes 43 Visit Number 16 Number of RADIOLOGY SUPERVISOR Visits 2 PT-OP-B Current Condition Start: 10/29/21 07:41 Freq: Status: Active Protocol: Document 10/30/21 08:22 [facility] (Rec: 10/30/21 12:09 [facility] [id number]) Current Condition History of Current Condition Current Complaints falls, weakness History of Current Condition Pt reports since her stroke she has been weaker. Stroke was about 10 years ago and has done PT on/off which helps her but then she declines again. She had to hire someone for cleaning about 1 year ago d/t pt noting it just takes too long to do anything. Pt reports a couple years ago, she fell whenw alking with her friends so they won't let her walk with them anymore. She has not been in the garden for 3 years because [facility] will bend down to lemon picker a weed and fall over. She reports she is falling more recently. She fell 3 times in the last year. One time, she fell walking backwards down the last few steps and miscounted how many steps so seh fell over. One time, she fell backing up when squeezing between a chair. Pt reports she has to be very careful walking backwards. won't walk around the block w/her because he likes to go his own pace. She was doing the strength and balance class at [facility]. Pt reports she developed a sore ( red area) on her R foot at bottom of 5th [address] and she got custom insoles. She still has to wear a bandage on it to keep it from hurting. Pt reports R hip has been on/off giving her trouble but unsure what causes pain. Some days it doesn't hurt at all and sometimes it does off/on. Pt does have macular degeneration and that does liimt her too. Pt reports ever since COVID vaccine has to be care when getting up otherwise gets dizzy Treatment Goals Patient/Caregiver Goals Be able to walk again by herself, be able to do some things around the house (be able to make bed better, be able to snap lids of containers, cook more, some other clean up) PT-OP-C Subjective Start: 10/29/21 07:41 Freq: Status: Active Protocol: Document 01/06/22 13:57 [facility] (Rec: 01/06/22 16:40 [facility] [id number]) OP-PT Subjective Patient Comments Patient Comments Pt reports she feels fine today and plans to with a friend monthly. She does not feel confident to walk [address] due to the hills. She thinks she is getting stronger, and reports no new falls. PT-OP-D Balance Start: 10/29/21 07:41 Freq: Status: Active Protocol: Document 12/05/21 13:15 [facility] (Rec: 12/05/21 14:43 [facility] [id number]) Balance Tests Hernandez Balance Test Hernandez Balance Test Score 49 PT-OP-E Functional Tests Start: 10/29/21 07:41 Freq: Status: Active Protocol: Document 12/05/21 13:15 [facility] (Rec: 12/05/21 14:42 [facility] [id number]) Functional Tests 30 Second Sit to Stand Test Score 6 Dynamic Gait Index (DGI) Score 20 Five Times Sit to Stand Test Score 20 sec PT-OP-G Mobility & Gait Start: 10/29/21 07:41 Freq: Status: Active Protocol: Document 10/30/21 08:22 [facility] (Rec: 10/30/21 12:09 [facility] [id number]) OP Gait Assessment Comments Gait Comments Pt amb slowly w/dec push off and dec overall stability. PT-OP-J Posture/Palpation/Skin Start: 10/29/21 07:41 Freq: Status: Active Protocol: Document 10/30/21 08:22 [facility] (Rec: 10/30/21 15:52 [facility] [id number]) Posture Evaluation Comments Posture Comments inc kyphosis & fwd head PT-OP-M Strength Start: 10/29/21 07:41 Freq: Status: Active Protocol: Document 10/30/21 08:22 [facility] (Rec: 10/30/21 12:09 [facility] [id number]) Hip Strength Hip Manual Muscle Testing Right Flexion (L2) 3+ Fair+ External Rotation 3+ Fair+ Internal Rotation 3+ Fair+ Left Flexion (L2) 3+ Fair+ External Rotation 3+ Fair+ Internal Rotation 3+ Fair+ Knee Strength Knee Manual Muscle Testing Right Flexion (S2) 4 Good Extension (L3) 4 Good Left Flexion (S2) 4 Good Extension (L3) 4- Good- Ankle/Foot Strength Ankle and Foot Manual Muscle Testing Right Dorsiflexion (L4) 5 Normal Plantarflexion (S1) 4+ Good+ Left Dorsiflexion (L4) 5 Normal Plantarflexion (S1) 4+ Good+ Comments PF tested seated PT-OP-Q Treatments Start: 10/29/21 07:41 Freq: Status: Active Protocol: Document 01/06/22 13:57 NB (Rec: 01/06/22 16:40 [facility] [id number]) Cardio Equipment Recumbent Elliptical (ORDISSIMO) Duration (Minutes) 6 Resistance 8 Seat Position 9 Therapeutic Exercises Standing Exercises sit to stand Side bilateral Equipment Used no tband Reps/Minutes 10 Comments no hands, vc for controlled descent, full upright posture hip ext Standing Exercise Name fwd/back walk Side bilateral Equipment Used yellow band Reps/Minutes 2x20ft Comments vc for wider steps backwards with RLE hip abd Standing Exercise Name lateral band walk Side bilateral Equipment Used yellow band Reps/Minutes 2x20ft Comments vc for toes forward and slow, controlled movement with lagging leg Neuro Re-Education Treatment Balance Activities SLS Equipment rail prn-CGA Comments 1. SLS trials 2. tapping 6 cone Tandem walk Comments 1. Tandem stance blue foam 2. tandem stance blue foam with balloon toss 3. tandem walk fwd 4 x20 ft - touch down on R improved with cueing 2 Details hurdles (6) Comments 1. Hurdles with greeen and blue foam in between each step for uneven surface balance challenge 2. Hurdles only focusing on high knees and foot clearance PT-OP-T Assessment and Plan Start: 10/29/21 07:41 Freq: Status: Active Protocol: Document 01/06/22 13:57 NB (Rec: 01/06/22 16:40 [facility] [id number]) Physical Therapy Assessment Impairments Impairments Activity Tolerance,Balance, Functional Activities, Functional Mobility,Gait,Pain, Posture,ROM,Soft Tissue Mobility,Strength Goals activities Senior Center Director Goal (LTG) Pt will report feeling stronger so she is able to do more household tasks in a better manner (making the bed, cooking, etc) without excessive fatigue 12/05-reports the fatigue is slightly better. Has good and bad days LTG Duration 01/29/22 Dynamic balance Impairment DGI 14/24; FGA 1230 Short Term Goal (STG) Pt will improve DGI score to at least 20 to show dec risk for falls. STG Duration achieved 12/05 Senior Center Director Goal (LTG) Pt will improve FGA score to at least 22/30 to show dec fall risk. LTG Duration 01/29/22 HERNANDEZ Short Term Goal (STG) pt will improve HERNANDEZ score to at least 46/56 to show she is safe ambulator w/o AD and is less likely to fall. STG Duration achieved 49 12/05 [facility] Goal (LTG) pt will improve HERNANDEZ score to at least 50/56 to show she is safe ambulator w/o AD outdoors and in the community. LTG Duration 01/29/22 sit to stand Short Term Goal (STG) Pt will be able to complete 5x sit to stand test. STG Duration achieved 12/05 [facility] Goal (LTG) Pt will be able to do at least 9 sit to stands in 30 sec to show improved strength & balance. LTG Duration 01/29/22 Assessment Summary Assessment Pt requires moderate cueing for controlled descent in sit< >stands but minimum cueing for keeping knees hip width today without a theraband. She demonstrates improved foot clearance with cues in hurdles but decreased foot clearance when also talking. Physical Therapy Plan Frequency and Duration Frequency of Treatment 2x/Week Duration of Treatment 3 months Plan of Care Start Date 10/30/21 Plan of Care End Date 01/29/22 Therapeutic Interventions Therapeutic Interventions Aquatic Therapy,Balance Training,Gait Training,Home Exercise Program,Manual Therapy,Neuromuscular Re- education,Patient/Caregiver Education,Self-Care/Home Management,Soft Tissue Mobilization,Taping, Therapeutic Activities, Therapeutic Exercises Modalities Cold Pack/Ice Massage,Hot Packs Next Visit Focus/Plan Next Note Type Treatment Note Next Visit Plan cont to advance strength and balance
--- NOTE | 2022-01-09 10:34 | PT.OTN ---
Current Diagnoses Unsteadiness on feet (01/09/22) Abnormal posture (01/09/22) Weakness (01/09/22) Physical Therapy Treatment Note PT-OP-A Visit Information Start: 10/29/21 07:41 Freq: Status: Active Protocol: Document 01/09/22 09:52 [facility] (Rec: 01/09/22 10:34 [facility] [id number]) Out-Patient Physical Therapy Visit Information Visit Information Visit Type Progress Note Visit Note 08/05 Visit Start Time 09:50 Visit Stop Time 10:30 Total Visit Minutes 40 Visit Number 17 Number of WARP TYING MACHINE TENDER Visits 0 PT-OP-B Current Condition Start: 10/29/21 07:41 Freq: Status: Active Protocol: Document 10/30/21 08:22 [facility] (Rec: 10/30/21 12:09 [facility] [id number]) Current Condition History of Current Condition Current Complaints falls, weakness History of Current Condition Pt reports since her stroke she has been weaker. Stroke was about 10 years ago and has done PT on/off which helps her but then she declines again. She had to hire someone for cleaning about 1 year ago d/t pt noting it just takes too long to do anything. Pt reports a couple years ago, she fell whenw alking with her friends so they won't let her walk with them anymore. She has not been in the garden for 3 years because [facility] will bend down to coal picker a weed and fall over. She reports she is falling more recently. She fell 3 times in the last year. One time, she fell walking backwards down the last few steps and miscounted how many steps so seh fell over. One time, she fell backing up when squeezing between a chair. Pt reports she has to be very careful walking backwards. won't walk around the block w/her because he likes to go his own pace. She was doing the strength and balance class at [facility]. Pt reports she developed a sore ( red area) on her R foot at bottom of 5th [address] and she got custom insoles. She still has to wear a bandage on it to keep it from hurting. Pt reports R hip has been on/off giving her trouble but unsure what causes pain. Some days it doesn't hurt at all and sometimes it does off/on. Pt does have macular degeneration and that does liimt her too. Pt reports ever since COVID vaccine has to be care when getting up otherwise gets dizzy Treatment Goals Patient/Caregiver Goals Be able to walk again by herself, be able to do some things around the house (be able to make bed better, be able to snap lids of containers, cook more, some other clean up) PT-OP-C Subjective Start: 10/29/21 07:41 Freq: Status: Active Protocol: Document 01/09/22 09:52 [facility] (Rec: 01/09/22 10:34 [facility] [id number]) OP-PT Subjective Patient Comments Patient Comments Pt report she does feel like she can do more chores. Pt reports she got out of bed too fast and took 2 steps this morning and feel fwd into the [place]. She did not hurt anything PT-OP-D Balance Start: 10/29/21 07:41 Freq: Status: Active Protocol: Document 01/09/22 09:52 [facility] (Rec: 01/09/22 10:34 [facility] [id number]) Balance Tests Hernandez Balance Test Hernandez Balance Test Score 52 PT-OP-E Functional Tests Start: 10/29/21 07:41 Freq: Status: Active Protocol: Document 01/09/22 09:52 [facility] (Rec: 01/09/22 10:34 [facility] [id number]) Functional Tests 30 Second Sit to Stand Test Score 8 Five Times Sit to Stand Test Score 19 sec Functional Gait Assessment Score 20 PT-OP-G Mobility & Gait Start: 10/29/21 07:41 Freq: Status: Active Protocol: Document 10/30/21 08:22 [facility] (Rec: 10/30/21 12:09 [facility] [id number]) OP Gait Assessment Comments Gait Comments Pt amb slowly w/dec push off and dec overall stability. PT-OP-J Posture/Palpation/Skin Start: 10/29/21 07:41 Freq: Status: Active Protocol: Document 10/30/21 08:22 [facility] (Rec: 10/30/21 15:52 [facility] [id number]) Posture Evaluation Comments Posture Comments inc kyphosis & fwd head PT-OP-M Strength Start: 10/29/21 07:41 Freq: Status: Active Protocol: Document 10/30/21 08:22 [facility] (Rec: 10/30/21 12:09 [facility] [id number]) Hip Strength Hip Manual Muscle Testing Right Flexion (L2) 3+ Fair+ External Rotation 3+ Fair+ Internal Rotation 3+ Fair+ Left Flexion (L2) 3+ Fair+ External Rotation 3+ Fair+ Internal Rotation 3+ Fair+ Knee Strength Knee Manual Muscle Testing Right Flexion (S2) 4 Good Extension (L3) 4 Good Left Flexion (S2) 4 Good Extension (L3) 4- Good- Ankle/Foot Strength Ankle and Foot Manual Muscle Testing Right Dorsiflexion (L4) 5 Normal Plantarflexion (S1) 4+ Good+ Left Dorsiflexion (L4) 5 Normal Plantarflexion (S1) 4+ Good+ Comments PF tested seated PT-OP-Q Treatments Start: 10/29/21 07:41 Freq: Status: Active Protocol: Document 01/09/22 09:52 [facility] (Rec: 01/09/22 10:34 [facility] [id number]) Cardio Equipment Recumbent Stepper ([employer]) Duration (Minutes) 6 Resistance 5 Seat Position 10 Gym Equipment Shuttle Balance 2 Details red clips Comments fwd & side: WBOS & NBOS balanace fwd; staggered stance balance PT-OP-T Assessment and Plan Start: 10/29/21 07:41 Freq: Status: Active Protocol: Document 01/09/22 09:52 [facility] (Rec: 01/09/22 10:34 [facility] [id number]) Physical Therapy Assessment Goals floor transfer State Pilot Goal (LTG) Pt will be able to get up/down from the ground w/o having outside support. LTG Duration 04/11 activities State Pilot Goal (LTG) Pt will report feeling stronger so she is able to do more household tasks in a better manner (making the bed, cooking, etc) without excessive fatigue 12/05-reports the fatigue is slightly better. Has good and bad days 01/09-improved LTG Duration 04/11 Dynamic balance Impairment DGI ; FGA 07/25 Short Term Goal (STG) Pt will improve DGI score to at least 20 to show dec risk for falls. STG Duration achieved 12/05 State Pilot Goal (LTG) Pt will improve FGA score to at least 22/30 to show dec fall risk. 01/09-20 LTG Duration 04/11 HERNANDEZ Short Term Goal (STG) pt will improve HERNANDEZ score to at least 46/56 to show she is safe ambulator w/o AD and is less likely to fall. STG Duration achieved 49 5/12 [facility] Goal (LTG) pt will improve HERNANDEZ score to at least 50/56 to show she is safe ambulator w/o AD outdoors and in the community. LTG Duration achieved to 52 sit to stand Short Term Goal (STG) Pt will be able to complete 5x sit to stand test. STG Duration achieved 5/ State Pilot Goal (LTG) Pt will be able to do at least 9 sit to stands in 30 sec to show improved strength & balance. 01/09- LTG Duration 04/11 Assessment Summary Assessment Pt is making good progress with strength and balance and is noting more functional ability at home. She has done 1 walk with a friend but does not have a consistant friend to walk with. She would benefit from cont PT at this time to progress strength and balance to dec fall risk. Physical Therapy Plan Frequency and Duration Frequency of Treatment 1-2x/Week Duration of Treatment 3 months Plan of Care Start Date 01/09/22 Plan of Care End Date 04/11/22 Next Visit Focus/Plan Next Note Type Treatment Note Next Visit Plan cont to advance strength and balance
--- NOTE | 2022-01-09 10:34 | PT.OPPOC ---
Physical, Occupational & Speech Therapy At [facility] Current Diagnoses Unsteadiness on feet (01/09/22) Abnormal posture (01/09/22) Weakness (01/09/22) Visit Care Team Role Provider Type Viky Seymour MD Attending Provider Physician Family Provider Primary Care Provider Referring Provider Specialty: Family Practice Address: [address] [place] [address], [facility] [place], [facility] Email: Plan Of Care PT-OP-T Assessment and Plan Start: 10/29/21 07:41 Freq: Status: Active Protocol: Document 01/09/22 09:52 [facility] (Rec: 01/09/22 10:34 [facility] [id number]) Physical Therapy Assessment Goals floor transfer Custodial Goal (LTG) Pt will be able to get up/down from the ground w/o having outside support. LTG Duration 04/11 activities Custodial Goal (LTG) Pt will report feeling stronger so she is able to do more household tasks in a better manner (making the bed, cooking, etc) without excessive fatigue 12/05-reports the fatigue is slightly better. Has good and bad days 01/09-improved LTG Duration 04/11 Dynamic balance Impairment DGI 24; FGA 07/25 Short Term Goal (STG) Pt will improve DGI score to at least 20 to show dec risk for falls. STG Duration achieved 12/05 Custodial Goal (LTG) Pt will improve FGA score to at least 22/30 to show dec fall risk. 01/09-20 LTG Duration 04/11 HERNANDEZ Short Term Goal (STG) pt will improve HERNANDEZ score to at least 46/56 to show she is safe ambulator w/o AD and is less likely to fall. STG Duration achieved 49 12/05 Dimension Warehouse Supervisor Goal (LTG) pt will improve HERNANDEZ score to at least 50/56 to show she is safe ambulator w/o AD outdoors and in the community. LTG Duration achieved to 52 sit to stand Short Term Goal (STG) Pt will be able to complete 5x sit to stand test. STG Duration achieved 12/05 Custodial Goal (LTG) Pt will be able to do at least 9 sit to stands in 30 sec to show improved strength & balance. 01/09-8 LTG Duration 04/11 Assessment Summary Assessment Pt is making good progress with strength and balance and is noting more functional ability at home. She has done 1 walk with a friend but does not have a consistant friend to walk with. She would benefit from cont PT at this time to progress strength and balance to dec fall risk. Physical Therapy Plan Frequency and Duration Frequency of Treatment 1-2x/Week Duration of Treatment 3 months Plan of Care Start Date 01/09/22 Plan of Care End Date 04/11/22 Next Visit Focus/Plan Next Note Type Treatment Note Next Visit Plan cont to advance strength and balance Plan of Care Dates Plan of Care Start Date 01/09/22 Plan of Care End Date 04/11/22 Electronically Signed by: Annetta Harris, PT 01/09/22 1034 If you are in agreement with this Plan of Care, please return a signed and dated copy. I have reviewed this Plan of Care and certify that the skilled therapy services above are required to meet the patient?s needs. Physician Signature Date Printed Name and Credentials Clinical Instructor Signature Printed Name and Credentials
--- NOTE | 2022-01-13 10:21 | PT.OTN ---
Current Diagnoses Unsteadiness on feet (01/13/22) Abnormal posture (01/13/22) Weakness (01/13/22) Physical Therapy Treatment Note PT-OP-A Visit Information Start: 10/29/21 07:41 Freq: Status: Active Protocol: Document 01/13/22 09:24 [facility] (Rec: 01/13/22 10:21 MA [id number]) Out-Patient Physical Therapy Visit Information Visit Information Visit Type Treatment Note Visit Note 09/05 Visit Start Time 09:30 Visit Stop Time 10:10 Total Visit Minutes 40 Visit Number 18 Number of APPLICATIONS SPECIALIST Visits 1 PT-OP-B Current Condition Start: 10/29/21 07:41 Freq: Status: Active Protocol: Document 10/30/21 08:22 [facility] (Rec: 10/30/21 12:09 [facility] [id number]) Current Condition History of Current Condition Current Complaints falls, weakness History of Current Condition Pt reports since her stroke she has been weaker. Stroke was about 10 years ago and has done PT on/off which helps her but then she declines again. She had to hire someone for cleaning about 1 year ago d/t pt noting it just takes too long to do anything. Pt reports a couple years ago, she fell whenw alking with her friends so they won't let her walk with them anymore. She has not been in the garden for 3 years because [facility] will bend down to cloth picker a weed and fall over. She reports she is falling more recently. She fell 3 times in the last year. One time, she fell walking backwards down the last few steps and miscounted how many steps so seh fell over. One time, she fell backing up when squeezing between a chair. Pt reports she has to be very careful walking backwards. won't walk around the block w/her because he likes to go his own pace. She was doing the strength and balance class at [facility]. Pt reports she developed a sore ( red area) on her R foot at bottom of 5th MT and she got custom insoles. She still has to wear a bandage on it to keep it from hurting. Pt reports R hip has been on/off giving her trouble but unsure what causes pain. Some days it doesn't hurt at all and sometimes it does off/on. Pt does have macular degeneration and that does liimt her too. Pt reports ever since COVID vaccine has to be care when getting up otherwise gets dizzy Treatment Goals Patient/Caregiver Goals Be able to walk again by herself, be able to do some things around the house (be able to make bed better, be able to snap lids of containers, cook more, some other clean up) PT-OP-C Subjective Start: 10/29/21 07:41 Freq: Status: Active Protocol: Document 01/13/22 09:24 [facility] (Rec: 01/13/22 10:21 [facility] [id number]) OP-PT Subjective Patient Comments Patient Comments Pt reports trying to get out of chairs at home without using her hands PT-OP-D Balance Start: 10/29/21 07:41 Freq: Status: Active Protocol: Document 01/09/22 09:52 [facility] (Rec: 01/09/22 10:34 [facility] [id number]) Balance Tests Hernandez Balance Test Hernandez Balance Test Score 52 PT-OP-E Functional Tests Start: 10/29/21 07:41 Freq: Status: Active Protocol: Document 01/09/22 09:52 [facility] (Rec: 01/09/22 10:34 [facility] [id number]) Functional Tests 30 Second Sit to Stand Test Score 8 Five Times Sit to Stand Test Score 19 sec Functional Gait Assessment Score 20 PT-OP-G Mobility & Gait Start: 10/29/21 07:41 Freq: Status: Active Protocol: Document 10/30/21 08:22 [facility] (Rec: 10/30/21 12:09 [facility] [id number]) OP Gait Assessment Comments Gait Comments Pt amb slowly w/dec push off and dec overall stability. PT-OP-J Posture/Palpation/Skin Start: 10/29/21 07:41 Freq: Status: Active Protocol: Document 10/30/21 08:22 [facility] (Rec: 10/30/21 15:52 [facility] [id number]) Posture Evaluation Comments Posture Comments inc kyphosis & fwd head PT-OP-M Strength Start: 10/29/21 07:41 Freq: Status: Active Protocol: Document 10/30/21 08:22 [facility] (Rec: 10/30/21 12:09 [facility] [id number]) Hip Strength Hip Manual Muscle Testing Right Flexion (L2) 3+ Fair+ External Rotation 3+ Fair+ Internal Rotation 3+ Fair+ Left Flexion (L2) 3+ Fair+ External Rotation 3+ Fair+ Internal Rotation 3+ Fair+ Knee Strength Knee Manual Muscle Testing Right Flexion (S2) 4 Good Extension (L3) 4 Good Left Flexion (S2) 4 Good Extension (L3) 4- Good- Ankle/Foot Strength Ankle and Foot Manual Muscle Testing Right Dorsiflexion (L4) 5 Normal Plantarflexion (S1) 4+ Good+ Left Dorsiflexion (L4) 5 Normal Plantarflexion (S1) 4+ Good+ Comments PF tested seated PT-OP-Q Treatments Start: 10/29/21 07:41 Freq: Status: Active Protocol: Document 01/13/22 09:24 [facility] (Rec: 01/13/22 10:21 MA [id number]) Cardio Equipment Recumbent Elliptical (Electric Objects) Duration (Minutes) 8 Resistance 8 Seat Position 9 Therapeutic Exercises Standing Exercises Step Ups Standing Exercise Name 1. step ups 2. step up with alt march Side bilateral Equipment Used 6 step Reps/Minutes x10 ea Comments CGA for alt march Marches Side bilateral Reps/Minutes 20x w/o rail Comments verbal and tactile cueing for keeping hips level sit to stand Standing Exercise Name first set no band, second set using band around knees Side bilateral Reps/Minutes 2x10 Comments no hands, vc for controlled descent, full upright posture hip ext Standing Exercise Name hip ext Side bilateral Equipment Used lvl 2 TB Reps/Minutes x10 ea Comments cues for posture hip abd Side bilateral Equipment Used lvl 2 TB Reps/Minutes x10 Comments vc for toes forward and slow, controlled movement with lagging leg Neuro Re-Education Treatment Balance Activities Foam Equipment smith cushion Comments 1. WBOS EO/EC trials 2. NBOS EO (with head turns/ nods), EC trials SLS Surface solid Equipment corner & chair prn for balance Comments 1. SLS trails in corner with chair for balance 2. tandem in corner with chair for balance 2 Details hurdles (6) Comments 1. Hurdles with greeen and blue foam in between each step for uneven surface balance challenge 2. Hurdles only focusing on high knees and foot clearance PT-OP-T Assessment and Plan Start: 10/29/21 07:41 Freq: Status: Active Protocol: Document 01/13/22 09:24 [facility] (Rec: 06/20/22 10:21 MA [id number]) Physical Therapy Assessment Goals floor transfer Field Pipe Lines Supervisor Goal (LTG) Pt will be able to get up/down from the ground w/o having outside support. LTG Duration 04/11 activities Field Pipe Lines Supervisor Goal (LTG) Pt will report feeling stronger so she is able to do more household tasks in a better manner (making the bed, cooking, etc) without excessive fatigue 12/05-reports the fatigue is slightly better. Has good and bad days 01/09-improved LTG Duration 04/11 Dynamic balance Impairment DGI ; FGA 07/25 Short Term Goal (STG) Pt will improve DGI score to at least 20 to show dec risk for falls. STG Duration achieved 12/05 Long-Term Goal (LTG) Pt will improve FGA score to at least 22/30 to show dec fall risk. 01/09- LTG Duration 04/11 HERNANDEZ Short Term Goal (STG) pt will improve HERNANDEZ score to at least 46/56 to show she is safe ambulator w/o AD and is less likely to fall. STG Duration achieved 49 12/05 Field Pipe Lines Supervisor Goal (LTG) pt will improve HERNANDEZ score to at least 50/56 to show she is safe ambulator w/o AD outdoors and in the community. LTG Duration achieved to 52 sit to stand Short Term Goal (STG) Pt will be able to complete 5x sit to stand test. STG Duration achieved 12/05 Long-Term Goal (LTG) Pt will be able to do at least 9 sit to stands in 30 sec to show improved strength & balance. 01/09- LTG Duration 04/11 Assessment Summary Assessment Pt does well with balance on solid surfaces but continues to be challenged when on uneven surfaces. Viky was challenged by step ups with alt march, expecially when balancing on LLE. Encourgaed pt to contine working on tandem balance, SLS, and marching at home with countertop for support as needed for safety. Physical Therapy Plan Frequency and Duration Frequency of Treatment 1-2x/Week Duration of Treatment 3 months Plan of Care Start Date 01/09/22 Plan of Care End Date 04/11/22 Therapeutic Interventions Therapeutic Interventions Aquatic Therapy,Balance Training,Gait Training,Home Exercise Program,Manual Therapy,Neuromuscular Re- education,Patient/Caregiver Education,Self-Care/Home Management,Soft Tissue Mobilization,Taping, Therapeutic Activities, Therapeutic Exercises Modalities Cold Pack/Ice Massage,Hot Packs Next Visit Focus/Plan Next Note Type Treatment Note Next Visit Plan cont to advance strength and balance, work on step ups with monisha yanes strength/ balance challenge
--- NOTE | 2022-01-15 09:47 | PT.OTN ---
Current Diagnoses Unsteadiness on feet (01/15/22) Abnormal posture (01/15/22) Weakness (01/15/22) Physical Therapy Treatment Note PT-OP-A Visit Information Start: 10/29/21 07:41 Freq: Status: Active Protocol: Document 01/15/22 09:07 [facility] (Rec: 01/15/22 09:47 [facility] [id number]) Out-Patient Physical Therapy Visit Information Visit Information Visit Type Treatment Note Visit Note 10/03 Visit Start Time 09:01 Visit Stop Time 09:42 Total Visit Minutes 41 Visit Number 19 Number of HIGH REACH OPERATOR Visits 0 PT-OP-B Current Condition Start: 10/29/21 07:41 Freq: Status: Active Protocol: Document 10/30/21 08:22 [facility] (Rec: 10/30/21 12:09 [facility] [id number]) Current Condition History of Current Condition Current Complaints falls, weakness History of Current Condition Pt reports since her stroke she has been weaker. Stroke was about 10 years ago and has done PT on/off which helps her but then she declines again. She had to hire someone for cleaning about 1 year ago d/t pt noting it just takes too long to do anything. Pt reports a couple years ago, she fell whenw alking with her friends so they won't let her walk with them anymore. She has not been in the garden for [address] [facility] will bend down to belt picker a weed and fall over. She reports she is falling more recently. She fell 3 times in the last year. One time, she fell walking backwards down the last few steps and miscounted how many steps so seh fell over. One time, she fell backing up when squeezing between a chair. Pt reports she has to be very careful walking backwards. won't walk around the block w/her because he likes to go his own pace. She was doing the strength and balance class at [facility]. Pt reports she developed a sore ( red area) on her R foot at bottom of 5th MT and she got custom insoles. She still has to wear a bandage on it to keep it from hurting. Pt reports R hip has been on/off giving her trouble but unsure what causes pain. Some days it doesn't hurt at all and sometimes it does off/on. Pt does have macular degeneration and that does liimt her too. Pt reports ever since COVID vaccine has to be care when getting up otherwise gets dizzy Treatment Goals Patient/Caregiver Goals Be able to walk again by herself, be able to do some things around the house (be able to make bed better, be able to snap lids of containers, cook more, some other clean up) PT-OP-C Subjective Start: 10/29/21 07:41 Freq: Status: Active Protocol: Document 01/15/22 09:07 [facility] (Rec: 01/15/22 09:47 [facility] [id number]) OP-PT Subjective Patient Comments Patient Comments Pt reports no new complaints PT-OP-D Balance Start: 10/29/21 07:41 Freq: Status: Active Protocol: Document 01/09/22 09:52 [facility] (Rec: 01/09/22 10:34 [facility] [id number]) Balance Tests Hernandez Balance Test Hernandez Balance Test Score 52 PT-OP-E Functional Tests Start: 10/29/21 07:41 Freq: Status: Active Protocol: Document 01/09/22 09:52 [facility] (Rec: 01/09/22 10:34 [facility] [id number]) Functional Tests 30 Second Sit to Stand Test Score 8 Five Times Sit to Stand Test Score 19 sec Functional Gait Assessment Score 20 PT-OP-G Mobility & Gait Start: 10/29/21 07:41 Freq: Status: Active Protocol: Document 10/30/21 08:22 [facility] (Rec: 10/30/21 12:09 [facility] [id number]) OP Gait Assessment Comments Gait Comments Pt amb slowly w/dec push off and dec overall stability. PT-OP-J Posture/Palpation/Skin Start: 10/29/21 07:41 Freq: Status: Active Protocol: Document 10/30/21 08:22 [facility] (Rec: 10/30/21 15:52 [facility] [id number]) Posture Evaluation Comments Posture Comments inc kyphosis & fwd head PT-OP-M Strength Start: 10/29/21 07:41 Freq: Status: Active Protocol: Document 10/30/21 08:22 [facility] (Rec: 10/30/21 12:09 [facility] [id number]) Hip Strength Hip Manual Muscle Testing Right Flexion (L2) 3+ Fair+ External Rotation 3+ Fair+ Internal Rotation 3+ Fair+ Left Flexion (L2) 3+ Fair+ External Rotation 3+ Fair+ Internal Rotation 3+ Fair+ Knee Strength Knee Manual Muscle Testing Right Flexion (S2) 4 Good Extension (L3) 4 Good Left Flexion (S2) 4 Good Extension (L3) 4- Good- Ankle/Foot Strength Ankle and Foot Manual Muscle Testing Right Dorsiflexion (L4) 5 Normal Plantarflexion (S1) 4+ Good+ Left Dorsiflexion (L4) 5 Normal Plantarflexion (S1) 4+ Good+ Comments PF tested seated PT-OP-Q Treatments Start: 10/29/21 07:41 Freq: Status: Active Protocol: Document 01/15/22 09:07 [facility] (Rec: 01/15/22 09:47 [facility] [id number]) Cardio Equipment Recumbent Elliptical (Biodex) Duration (Minutes) 7 Resistance 8 Seat Position 9 Gym Equipment Shuttle Balance 2 Details red clips Comments fwd & side: WBOS & NBOS balanace fwd; staggered stance balance Therapeutic Exercises Standing Exercises Step Ups Standing Exercise Name 1. step ups Side bilateral Equipment Used 8 step Reps/Minutes x15 ea heel raises Side bilateral Reps/Minutes 20 Neuro Re-Education Treatment Balance Activities head turns Details vert/hor Reps/Duration 50ftx4 Comments walking Foam Details head turns Equipment blue foam Comments WBOS, NBOS, staggered stance 2 Details hurdles (6) Comments 1. Hurdles with greeen and blue foam in between each step for uneven surface balance challengex6 2. Hurdles only focusing on high knees and foot clearance x3 1 Details caricoa Reps/Duration 20 ft ea PT-OP-T Assessment and Plan Start: 10/29/21 07:41 Freq: Status: Active Protocol: Document 01/15/22 09:07 [facility] (Rec: 01/15/22 09:47 [facility] [id number]) Physical Therapy Assessment Goals floor transfer Jail Goal (LTG) Pt will be able to get up/down from the ground w/o having outside support. LTG Duration 04/11 activities High School Mathematics Teacher Goal (LTG) Pt will report feeling stronger so she is able to do more household tasks in a better manner (making the bed, cooking, etc) without excessive fatigue 12/05-reports the fatigue is slightly better. Has good and bad days 01/09-improved LTG Duration 04/11 Dynamic balance Impairment DGI 1424; FGA 07/25 Short Term Goal (STG) Pt will improve DGI score to at least 20 to show dec risk for falls. STG Duration achieved 12/05 Jail Goal (LTG) Pt will improve FGA score to at least 22/30 to show dec fall risk. 01/09- LTG Duration 04/11 HERNANDEZ Short Term Goal (STG) pt will improve HERNANDEZ score to at least 46/56 to show she is safe ambulator w/o AD and is less likely to fall. STG Duration achieved 49 12/05 Jail Goal (LTG) pt will improve HERNANDEZ score to at least 50/56 to show she is safe ambulator w/o AD outdoors and in the community. LTG Duration achieved to 52 sit to stand Short Term Goal (STG) Pt will be able to complete 5x sit to stand test. STG Duration achieved 12/05 High School Mathematics Teacher Goal (LTG) Pt will be able to do at least 9 sit to stands in 30 sec to show improved strength & balance. 01/09- LTG Duration 04/11 Assessment Summary Assessment Pt did well with balancing today with and with strengthening exercises. she showed better balance on uneven surfaces but head turns still difficult for her. Physical Therapy Plan Frequency and Duration Frequency of Treatment 1-2x/Week Duration of Treatment 3 months Plan of Care Start Date 01/09/22 Plan of Care End Date 04/11/22 Next Visit Focus/Plan Next Note Type Treatment Note Next Visit Plan cont to advance strength and balance, work on step ups with alt phoebe yanes strength/ balance challenge
--- NOTE | 2022-01-20 10:19 | PT.OTN ---
Current Diagnoses Unsteadiness on feet (01/20/22) Abnormal posture (01/20/22) Weakness (01/20/22) Physical Therapy Treatment Note PT-OP-A Visit Information Start: 10/29/21 07:41 Freq: Status: Active Protocol: Document 01/20/22 09:23 MA (Rec: 01/20/22 10:19 MA [id number]) Out-Patient Physical Therapy Visit Information Visit Information Visit Type Treatment Note Visit Start Time 09:30 Visit Stop Time 10:10 Total Visit Minutes 40 Visit Number 20 Number of GENERAL MERCHANDISE SALESPERSON Visits 1 PT-OP-B Current Condition Start: 10/29/21 07:41 Freq: Status: Active Protocol: Document 10/30/21 08:22 [facility] (Rec: 10/30/21 12:09 [facility] [id number]) Current Condition History of Current Condition Current Complaints falls, weakness History of Current Condition Pt reports since her stroke she has been weaker. Stroke was about 10 years ago and has done PT on/off which helps her but then she declines again. She had to hire someone for cleaning about 1 year ago d/t pt noting it just takes too long to do anything. Pt reports a couple years ago, she fell whenw alking with her friends so they won't let her walk with them anymore. She has not been in the garden for 3 years because [facility] will bend down to acupuncturist a weed and fall over. She reports she is falling more recently. She fell 3 times in the last year. One time, she fell walking backwards down the last few steps and miscounted how many steps so seh fell over. One time, she fell backing up when squeezing between a chair. Pt reports she has to be very careful walking backwards. won't walk around the block w/her because he likes to go his own pace. She was doing the strength and balance class at [facility]. Pt reports she developed a sore ( red area) on her R foot at bottom of 5th MT and she got custom insoles. She still has to wear a bandage on it to keep it from hurting. Pt reports R hip has been on/off giving her trouble but unsure what causes pain. Some days it doesn't hurt at all and sometimes it does off/on. Pt does have macular degeneration and that does liimt her too. Pt reports ever since COVID vaccine has to be care when getting up otherwise gets dizzy Treatment Goals Patient/Caregiver Goals Be able to walk again by herself, be able to do some things around the house (be able to make bed better, be able to snap lids of containers, cook more, some other clean up) PT-OP-C Subjective Start: 10/29/21 07:41 Freq: Status: Active Protocol: Document 01/20/22 09:23 MA (Rec: 01/20/22 10:19 MA [id number]) OP-PT Subjective Patient Comments Patient Comments Pt arrives with walking stick stating she hopes to walk with her friends again soon. They are worried she will fall and her will blame them. PT-OP-D Balance Start: 10/29/21 07:41 Freq: Status: Active Protocol: Document 01/09/22 09:52 [facility] (Rec: 01/09/22 10:34 [facility] [id number]) Balance Tests Hernandez Balance Test Hernandez Balance Test Score 52 PT-OP-E Functional Tests Start: 10/29/21 07:41 Freq: Status: Active Protocol: Document 01/09/22 09:52 [facility] (Rec: 01/09/22 10:34 [facility] [id number]) Functional Tests 30 Second Sit to Stand Test Score 8 Five Times Sit to Stand Test Score 19 sec Functional Gait Assessment Score 20 PT-OP-G Mobility & Gait Start: 10/29/21 07:41 Freq: Status: Active Protocol: Document 10/30/21 08:22 [facility] (Rec: 10/30/21 12:09 [facility] [id number]) OP Gait Assessment Comments Gait Comments Pt amb slowly w/dec push off and dec overall stability. PT-OP-J Posture/Palpation/Skin Start: 10/29/21 07:41 Freq: Status: Active Protocol: Document 10/30/21 08:22 [facility] (Rec: 10/30/21 15:52 [facility] [id number]) Posture Evaluation Comments Posture Comments inc kyphosis & fwd head PT-OP-M Strength Start: 10/29/21 07:41 Freq: Status: Active Protocol: Document 10/30/21 08:22 [facility] (Rec: 10/30/21 12:09 [facility] [id number]) Hip Strength Hip Manual Muscle Testing Right Flexion (L2) 3+ Fair+ External Rotation 3+ Fair+ Internal Rotation 3+ Fair+ Left Flexion (L2) 3+ Fair+ External Rotation 3+ Fair+ Internal Rotation 3+ Fair+ Knee Strength Knee Manual Muscle Testing Right Flexion (S2) 4 Good Extension (L3) 4 Good Left Flexion (S2) 4 Good Extension (L3) 4- Good- Ankle/Foot Strength Ankle and Foot Manual Muscle Testing Right Dorsiflexion (L4) 5 Normal Plantarflexion (S1) 4+ Good+ Left Dorsiflexion (L4) 5 Normal Plantarflexion (S1) 4+ Good+ Comments PF tested seated PT-OP-Q Treatments Start: 10/29/21 07:41 Freq: Status: Active Protocol: Document 01/20/22 09:23 MA (Rec: 01/20/22 10:19 MA [id number]) Cardio Equipment Recumbent Elliptical (Biodex) Duration (Minutes) 8 Resistance 8 Seat Position 9 Gym Equipment Shuttle Balance 2 Details red clips Comments fwd WBOS & NBOS, staggered stance balance Therapeutic Exercises Standing Exercises Step Ups Standing Exercise Name 1. step ups 2. Step ups with alt march-rail prn Side bilateral Equipment Used 8 step Reps/Minutes x10 ea sit to stand Side bilateral Reps/Minutes x10 Comments no hands, vc for controlled descent, full upright posture Neuro Re-Education Treatment Balance Activities Foam Details head turns Equipment blue foam Comments 1. blue foam with head turns/ nods, EO/EC 2. tpods- head turns & nods obstacle course Details fwd walk thru Equipment tpods & tpads Reps/Duration 6 laps Comments rail prn PT-OP-T Assessment and Plan Start: 10/29/21 07:41 Freq: Status: Active Protocol: Document 01/20/22 09:23 MA (Rec: 01/20/22 10:19 MA [id number]) Physical Therapy Assessment Goals floor transfer Senior Care Goal (LTG) Pt will be able to get up/down from the ground w/o having outside support. LTG Duration 04/11 activities Senior Care Goal (LTG) Pt will report feeling stronger so she is able to do more household tasks in a better manner (making the bed, cooking, etc) without excessive fatigue 12/05-reports the fatigue is slightly better. Has good and bad days 01/09-improved LTG Duration 04/11 Dynamic balance Impairment DGI 1424; FGA 07/25 Short Term Goal (STG) Pt will improve DGI score to at least 20 to show dec risk for falls. STG Duration achieved 12/05 Supervisor Lathing Goal (LTG) Pt will improve FGA score to at least 22/30 to show dec fall risk. 01/09- LTG Duration 04/11 HERNANDEZ Short Term Goal (STG) pt will improve HERNANDEZ score to at least 46/56 to show she is safe ambulator w/o AD and is less likely to fall. STG Duration achieved 49 12/05 Senior Care Goal (LTG) pt will improve HERNANDEZ score to at least 50/56 to show she is safe ambulator w/o AD outdoors and in the community. LTG Duration achieved to 52 sit to stand Short Term Goal (STG) Pt will be able to complete 5x sit to stand test. STG Duration achieved 12/05 Senior Care Goal (LTG) Pt will be able to do at least 9 sit to stands in 30 sec to show improved strength & balance. 01/09- LTG Duration 04/11 Assessment Summary Assessment Pt arrives with walking stick and GENERAL MERCHANDISE SALESPERSON confirms it is at the correct height for pt to walk with. She is able to complete step ups with alt march with no rail when stepping with RLE but requires rail occassionally when stepping up with LLE. She is able to step across foam pads without LOB but is challenged when smaller t-pods are added into obstacle course. Pt is open to working on gait outside when it is less amanda as she has an eye condition which is irritated by brightness. Physical Therapy Plan Frequency and Duration Frequency of Treatment 1-2x/Week Duration of Treatment 3 months Plan of Care Start Date 01/09/22 Plan of Care End Date 04/11/22 Therapeutic Interventions Therapeutic Interventions Aquatic Therapy,Balance Training,Gait Training,Home Exercise Program,Manual Therapy,Neuromuscular Re- education,Patient/Caregiver Education,Self-Care/Home Management,Soft Tissue Mobilization,Taping, Therapeutic Activities, Therapeutic Exercises Modalities Cold Pack/Ice Massage,Hot Packs Next Visit Focus/Plan Next Note Type Treatment Note Next Visit Plan cont to advance strength and balance, work on step ups with alt march cor strength/ balance challenge, begin working on floor transfers.
--- NOTE | 2022-01-22 09:50 | PT.OTN ---
Current Diagnoses Unsteadiness on feet (01/22/22) Abnormal posture (01/22/22) Weakness (01/22/22) Physical Therapy Treatment Note PT-OP-A Visit Information Start: 10/29/21 07:41 Freq: Status: Active Protocol: Document 01/22/22 09:09 [facility] (Rec: 01/22/22 09:50 [facility] [id number]) Out-Patient Physical Therapy Visit Information Visit Information Visit Type Treatment Note Visit Note 12/03 Visit Start Time 09:02 Visit Stop Time 09:43 Total Visit Minutes 41 Visit Number 21 Number of NETWORK TECHNOLOGY INSTRUCTOR Visits 0 PT-OP-B Current Condition Start: 10/29/21 07:41 Freq: Status: Active Protocol: Document 10/30/21 08:22 [facility] (Rec: 10/30/21 12:09 [facility] [id number]) Current Condition History of Current Condition Current Complaints falls, weakness History of Current Condition Pt reports since her stroke she has been weaker. Stroke was about 10 years ago and has done PT on/off which helps her but then she declines again. She had to hire someone for cleaning about 1 year ago d/t pt noting it just takes too long to do anything. Pt reports a couple years ago, she fell whenw alking with her friends so they won't let her walk with them anymore. She has not been in the garden for 3 years because [facility] will bend down to pickers material handlers a weed and fall over. She reports she is falling more recently. She fell 3 times in the last year. One time, she fell walking backwards down the last few steps and miscounted how many steps so seh fell over. One time, she fell backing up when squeezing between a chair. Pt reports she has to be very careful walking backwards. won't walk around the block w/her because he likes to go his own pace. She was doing the strength and balance class at [facility]. Pt reports she developed a sore ( red area) on her R foot at bottom of 5th MT and she got custom insoles. She still has to wear a bandage on it to keep it from hurting. Pt reports R hip has been on/off giving her trouble but unsure what causes pain. Some days it doesn't hurt at all and sometimes it does off/on. Pt does have macular degeneration and that does liimt her too. Pt reports ever since COVID vaccine has to be care when getting up otherwise gets dizzy Treatment Goals Patient/Caregiver Goals Be able to walk again by herself, be able to do some things around the house (be able to make bed better, be able to snap lids of containers, cook more, some other clean up) PT-OP-C Subjective Start: 10/29/21 07:41 Freq: Status: Active Protocol: Document 01/22/22 09:09 [facility] (Rec: 01/22/22 09:50 [facility] [id number]) OP-PT Subjective Patient Comments Patient Comments pt PT-OP-D Balance Start: 10/29/21 07:41 Freq: Status: Active Protocol: Document 01/09/22 09:52 [facility] (Rec: 01/09/22 10:34 [facility] [id number]) Balance Tests Hernandez Balance Test Hernandez Balance Test Score 52 PT-OP-E Functional Tests Start: 10/29/21 07:41 Freq: Status: Active Protocol: Document 01/09/22 09:52 [facility] (Rec: 01/09/22 10:34 [facility] [id number]) Functional Tests 30 Second Sit to Stand Test Score 8 Five Times Sit to Stand Test Score 19 sec Functional Gait Assessment Score 20 PT-OP-G Mobility & Gait Start: 10/29/21 07:41 Freq: Status: Active Protocol: Document 10/30/21 08:22 [facility] (Rec: 10/30/21 12:09 [facility] [id number]) OP Gait Assessment Comments Gait Comments Pt amb slowly w/dec push off and dec overall stability. PT-OP-J Posture/Palpation/Skin Start: 10/29/21 07:41 Freq: Status: Active Protocol: Document 10/30/21 08:22 [facility] (Rec: 10/30/21 15:52 [facility] [id number]) Posture Evaluation Comments Posture Comments inc kyphosis & fwd head PT-OP-M Strength Start: 10/29/21 07:41 Freq: Status: Active Protocol: Document 10/30/21 08:22 [facility] (Rec: 10/30/21 12:09 [facility] [id number]) Hip Strength Hip Manual Muscle Testing Right Flexion (L2) 3+ Fair+ External Rotation 3+ Fair+ Internal Rotation 3+ Fair+ Left Flexion (L2) 3+ Fair+ External Rotation 3+ Fair+ Internal Rotation 3+ Fair+ Knee Strength Knee Manual Muscle Testing Right Flexion (S2) 4 Good Extension (L3) 4 Good Left Flexion (S2) 4 Good Extension (L3) 4- Good- Ankle/Foot Strength Ankle and Foot Manual Muscle Testing Right Dorsiflexion (L4) 5 Normal Plantarflexion (S1) 4+ Good+ Left Dorsiflexion (L4) 5 Normal Plantarflexion (S1) 4+ Good+ Comments PF tested seated PT-OP-Q Treatments Start: 10/29/21 07:41 Freq: Status: Active Protocol: Document 01/22/22 09:09 [facility] (Rec: 01/22/22 09:50 [facility] [id number]) Cardio Equipment Recumbent Elliptical (Biodex) Duration (Minutes) 6 Resistance 8 Seat Position 9 Gym Equipment Shuttle Balance 2 Details red clips Comments fwd & side: WBOS & NBOS balanace, squats, wt shifts WBOS fwd; staggered stance balance Therapeutic Exercises Standing Exercises Step Ups Standing Exercise Name 1. step up 2. side step up Side bilateral Resistance 2# Equipment Used 8 in Reps/Minutes 1.10 2.5 heel raises Side bilateral Reps/Minutes 20 hip abd Side bilateral Equipment Used 2# WT Reps/Minutes x15 Comments vc for toes forward and slow, controlled movement with lagging leg Gait Training Gait Activity 1 Comments w/walking stick in [place] for sequencing and walking stick adjusted and done w/head turns . Neuro Re-Education Treatment Balance Activities SLS Surface solid Equipment 12 in step Comments toe taps w/2# wts x15 2 Details hurdles (6) Equipment 2# Comments 1. Hurdles [id number] 2. Hurdles side x2 B PT-OP-T Assessment and Plan Start: 10/29/21 07:41 Freq: Status: Active Protocol: Document 01/22/22 09:09 [facility] (Rec: 01/22/22 09:50 [facility] [id number]) Physical Therapy Assessment Goals floor transfer Residential Goal (LTG) Pt will be able to get up/down from the ground w/o having outside support. LTG Duration 04/11 activities Meter Maker Goal (LTG) Pt will report feeling stronger so she is able to do more household tasks in a better manner (making the bed, cooking, etc) without excessive fatigue 12/05-reports the fatigue is slightly better. Has good and bad days 01/09-improved LTG Duration 04/11 Dynamic balance Impairment DGI ; FGA 07/25 Short Term Goal (STG) Pt will improve DGI score to at least 20 to show dec risk for falls. STG Duration achieved 12/05 Meter Maker Goal (LTG) Pt will improve FGA score to at least 22/30 to show dec fall risk. 01/09- LTG Duration 04/11 HERNANDEZ Short Term Goal (STG) pt will improve HERNANDEZ score to at least 46/56 to show she is safe ambulator w/o AD and is less likely to fall. STG Duration achieved 49 12/05 Residential Goal (LTG) pt will improve HERNANDEZ score to at least 50/56 to show she is safe ambulator w/o AD outdoors and in the community. LTG Duration achieved to 52 sit to stand Short Term Goal (STG) Pt will be able to complete 5x sit to stand test. STG Duration achieved 12/05 Residential Goal (LTG) Pt will be able to do at least 9 sit to stands in 30 sec to show improved strength & balance. 01/09-8 LTG Duration 04/11 Assessment Summary Assessment Pt did well with walking stick . It was adjusted to slightly shorter to dec pt catching it. She did well with it in [place] w/balance [facility]. She was encouraged to talk w/friends and about walkign with her. Physical Therapy Plan Frequency and Duration Frequency of Treatment 1-2x/Week Duration of Treatment 3 months Plan of Care Start Date 01/09/22 Plan of Care End Date 04/11/22 Next Visit Focus/Plan Next Note Type Treatment Note Next Visit Plan cont to advance strength and balance, work on step ups with alt march cor strength/ balance challenge, begin working on floor transfers.
--- NOTE | 2022-01-28 09:46 | PT.OTN ---
Current Diagnoses Unsteadiness on feet (01/28/22) Abnormal posture (01/28/22) Weakness (01/28/22) Physical Therapy Treatment Note PT-OP-A Visit Information Start: 10/29/21 07:41 Freq: Status: Active Protocol: Document 01/28/22 09:10 [facility] (Rec: 01/28/22 09:46 [facility] [id number]) Out-Patient Physical Therapy Visit Information Visit Information Visit Type Treatment Note Visit Note 01/03 Visit Start Time 09:03 Visit Stop Time 09:43 Total Visit Minutes 40 Visit Number 22 Number of INSIDE SALES MANAGER Visits 0 PT-OP-B Current Condition Start: 10/29/21 07:41 Freq: Status: Active Protocol: Document 10/30/21 08:22 [facility] (Rec: 10/30/21 12:09 [facility] [id number]) Current Condition History of Current Condition Current Complaints falls, weakness History of Current Condition Pt reports since her stroke she has been weaker. Stroke was about 10 years ago and has done PT on/off which helps her but then she declines again. She had to hire someone for cleaning about 1 year ago d/t pt noting it just takes too long to do anything. Pt reports a couple years ago, she fell whenw alking with her friends so they won't let her walk with them anymore. She has not been in the garden for 3 years because [facility] will bend down to pickling drum operator a weed and fall over. She reports she is falling more recently. She fell 3 times in the last year. One time, she fell walking backwards down the last few steps and miscounted how many steps so seh fell over. One time, she fell backing up when squeezing between a chair. Pt reports she has to be very careful walking backwards. won't walk around the block w/her because he likes to go his own pace. She was doing the strength and balance class at [facility]. Pt reports she developed a sore ( red area) on her R foot at bottom of 5th MT and she got custom insoles. She still has to wear a bandage on it to keep it from hurting. Pt reports R hip has been on/off giving her trouble but unsure what causes pain. Some days it doesn't hurt at all and sometimes it does off/on. Pt does have macular degeneration and that does liimt her too. Pt reports ever since COVID vaccine has to be care when getting up otherwise gets dizzy Treatment Goals Patient/Caregiver Goals Be able to walk again by herself, be able to do some things around the house (be able to make bed better, be able to snap lids of containers, cook more, some other clean up) PT-OP-C Subjective Start: 10/29/21 07:41 Freq: Status: Active Protocol: Document 01/28/22 09:10 [facility] (Rec: 01/28/22 09:46 [facility] [id number]) OP-PT Subjective Patient Comments Patient Comments pt reports doing a small walk yesterday PT-OP-D Balance Start: 10/29/21 07:41 Freq: Status: Active Protocol: Document 01/09/22 09:52 [facility] (Rec: 01/09/22 10:34 [facility] [id number]) Balance Tests Hernandez Balance Test Hernandez Balance Test Score 52 PT-OP-E Functional Tests Start: 10/29/21 07:41 Freq: Status: Active Protocol: Document 01/09/22 09:52 [facility] (Rec: 01/09/22 10:34 [facility] [id number]) Functional Tests 30 Second Sit to Stand Test Score 8 Five Times Sit to Stand Test Score 19 sec Functional Gait Assessment Score 20 PT-OP-G Mobility & Gait Start: 10/29/21 07:41 Freq: Status: Active Protocol: Document 10/30/21 08:22 [facility] (Rec: 10/30/21 12:09 [facility] [id number]) OP Gait Assessment Comments Gait Comments Pt amb slowly w/dec push off and dec overall stability. PT-OP-J Posture/Palpation/Skin Start: 10/29/21 07:41 Freq: Status: Active Protocol: Document 10/30/21 08:22 [facility] (Rec: 10/30/21 15:52 [facility] [id number]) Posture Evaluation Comments Posture Comments inc kyphosis & fwd head PT-OP-M Strength Start: 10/29/21 07:41 Freq: Status: Active Protocol: Document 10/30/21 08:22 [facility] (Rec: 10/30/21 12:09 [facility] [id number]) Hip Strength Hip Manual Muscle Testing Right Flexion (L2) 3+ Fair+ External Rotation 3+ Fair+ Internal Rotation 3+ Fair+ Left Flexion (L2) 3+ Fair+ External Rotation 3+ Fair+ Internal Rotation 3+ Fair+ Knee Strength Knee Manual Muscle Testing Right Flexion (S2) 4 Good Extension (L3) 4 Good Left Flexion (S2) 4 Good Extension (L3) 4- Good- Ankle/Foot Strength Ankle and Foot Manual Muscle Testing Right Dorsiflexion (L4) 5 Normal Plantarflexion (S1) 4+ Good+ Left Dorsiflexion (L4) 5 Normal Plantarflexion (S1) 4+ Good+ Comments PF tested seated PT-OP-Q Treatments Start: 10/29/21 07:41 Freq: Status: Active Protocol: Document 01/28/22 09:10 [facility] (Rec: 01/28/22 09:46 [facility] [id number]) Cardio Equipment Recumbent Elliptical (Biodex) Duration (Minutes) 7 Resistance 8 Seat Position 9 Gym Equipment Shuttle Balance 2 Details red clips Comments fwd & side: WBOS & NBOS balanace, squats, wt shifts WBOS fwd; staggered stance balance Therapeutic Exercises Standing Exercises Step Ups Standing Exercise Name 1. step up Side bilateral Equipment Used 8 in Reps/Minutes 1.10 heel raises Side bilateral Reps/Minutes 20 hip abd Standing Exercise Name sidestep Side bilateral Equipment Used lvl 2 Reps/Minutes 20ft ea Neuro Re-Education Treatment Balance Activities head turns Details vert/hor Reps/Duration 50ftx2 Comments walking at fast pace Tandem walk Comments 1. stance trials B 2. line walk 50ft x2 3. tandem walk w/up to 2 fingers 2x20ft 2 Details hurdles (6) Equipment 2# Comments 1. Hurdles fwdx8 2. Hurdles side x2 B 1 Details EC walk Reps/Duration 2x50ft PT-OP-T Assessment and Plan Start: 10/29/21 07:41 Freq: Status: Active Protocol: Document 01/28/22 09:10 [facility] (Rec: 01/28/22 09:46 [facility] [id number]) Physical Therapy Assessment Goals floor transfer Intermediate Goal (LTG) Pt will be able to get up/down from the ground w/o having outside support. LTG Duration 9/16 activities Intermediate Goal (LTG) Pt will report feeling stronger so she is able to do more household tasks in a better manner (making the bed, cooking, etc) without excessive fatigue 12/05-reports the fatigue is slightly better. Has good and bad days 01/09-improved LTG Duration 04/11 Dynamic balance Impairment DGI ; FGA 07/25 Short Term Goal (STG) Pt will improve DGI score to at least 20 to show dec risk for falls. STG Duration achieved 12/05 Education Program Manager Goal (LTG) Pt will improve FGA score to at least 22/30 to show dec fall risk. 01/09- LTG Duration 04/11 HERNANDEZ Short Term Goal (STG) pt will improve HERNANDEZ score to at least 46/56 to show she is safe ambulator w/o AD and is less likely to fall. STG Duration achieved 49 12/05 Intermediate Goal (LTG) pt will improve HERNANDEZ score to at least 50/56 to show she is safe ambulator w/o AD outdoors and in the community. LTG Duration achieved to 52 sit to stand Short Term Goal (STG) Pt will be able to complete 5x sit to stand test. STG Duration achieved 12/05 Intermediate Goal (LTG) Pt will be able to do at least 9 sit to stands in 30 sec to show improved strength & balance. 01/09- LTG Duration 04/11 Assessment Summary Assessment Pt did well with balance challenges today and was able to do several tandem steps w/o CUSTOMER SUPPORT ANALYST on rail today. Improvign balance on blanace board. Physical Therapy Plan Frequency and Duration Frequency of Treatment 1-2x/Week Duration of Treatment 3 months Plan of Care Start Date 01/09/22 Plan of Care End Date 04/11/22 Next Visit Focus/Plan Next Note Type Treatment Note Next Visit Plan cont to advance strength and balance, work on step ups with alt march cor strength/ balance challenge, begin working on floor transfers.
--- NOTE | 2022-01-30 09:50 | PT.OTN ---
Current Diagnoses Unsteadiness on feet (01/30/22) Abnormal posture (01/30/22) Weakness (01/30/22) Physical Therapy Treatment Note PT-OP-A Visit Information Start: 10/29/21 07:41 Freq: Status: Active Protocol: Document 01/30/22 09:07 [facility] (Rec: 01/30/22 09:49 [facility] [id number]) Out-Patient Physical Therapy Visit Information Visit Information Visit Type Treatment Note Visit Note 02/02 Visit Start Time 09:05 Visit Stop Time 09:45 Total Visit Minutes 40 Visit Number 23 Number of POTATO SPOTTER Visits 0 PT-OP-B Current Condition Start: 10/29/21 07:41 Freq: Status: Active Protocol: Document 10/30/21 08:22 [facility] (Rec: 10/30/21 12:09 [facility] [id number]) Current Condition History of Current Condition Current Complaints falls, weakness History of Current Condition Pt reports since her stroke she has been weaker. Stroke was about 10 years ago and has done PT on/off which helps her but then she declines again. She had to hire someone for cleaning about 1 year ago d/t pt noting it just takes too long to do anything. Pt reports a couple years ago, she fell whenw alking with her friends so they won't let her walk with them anymore. She has not been in the garden for 3 years because the [facility] will bend down to picker operator a weed and fall over. She reports she is falling more recently. She fell 3 times in the last year. One time, she fell walking backwards down the last few steps and miscounted how many steps so seh fell over. One time, she fell backing up when squeezing between a chair. Pt reports she has to be very careful walking backwards. won't walk around the block w/her because he likes to go his own pace. She was doing the strength and balance class at [facility]. Pt reports she developed a sore ( red area) on her R foot at bottom of 5th MT and she got custom insoles. She still has to wear a bandage on it to keep it from hurting. Pt reports R hip has been on/off giving her trouble but unsure what causes pain. Some days it doesn't hurt at all and sometimes it does off/on. Pt does have macular degeneration and that does liimt her too. Pt reports ever since COVID vaccine has to be care when getting up otherwise gets dizzy Treatment Goals Patient/Caregiver Goals Be able to walk again by herself, be able to do some things around the house (be able to make bed better, be able to snap lids of containers, cook more, some other clean up) PT-OP-C Subjective Start: 10/29/21 07:41 Freq: Status: Active Protocol: Document 01/30/22 09:07 [facility] (Rec: 01/30/22 09:49 [facility] [id number]) OP-PT Subjective Patient Comments Patient Comments Pt reports getting down to hands and knees to give cats catnip and reports it was hard to get up PT-OP-D Balance Start: 10/29/21 07:41 Freq: Status: Active Protocol: Document 01/09/22 09:52 [facility] (Rec: 01/09/22 10:34 [facility] [id number]) Balance Tests Hernandez Balance Test Hernandez Balance Test Score 52 PT-OP-E Functional Tests Start: 10/29/21 07:41 Freq: Status: Active Protocol: Document 01/09/22 09:52 [facility] (Rec: 01/09/22 10:34 [facility] [id number]) Functional Tests 30 Second Sit to Stand Test Score 8 Five Times Sit to Stand Test Score 19 sec Functional Gait Assessment Score 20 PT-OP-G Mobility & Gait Start: 10/29/21 07:41 Freq: Status: Active Protocol: Document 10/30/21 08:22 [facility] (Rec: 10/30/21 12:09 [facility] [id number]) OP Gait Assessment Comments Gait Comments Pt amb slowly w/dec push off and dec overall stability. PT-OP-J Posture/Palpation/Skin Start: 10/29/21 07:41 Freq: Status: Active Protocol: Document 10/30/21 08:22 [facility] (Rec: 10/30/21 15:52 [facility] [id number]) Posture Evaluation Comments Posture Comments inc kyphosis & fwd head PT-OP-M Strength Start: 10/29/21 07:41 Freq: Status: Active Protocol: Document 10/30/21 08:22 [facility] (Rec: 10/30/21 12:09 [facility] [id number]) Hip Strength Hip Manual Muscle Testing Right Flexion (L2) 3+ Fair+ External Rotation 3+ Fair+ Internal Rotation 3+ Fair+ Left Flexion (L2) 3+ Fair+ External Rotation 3+ Fair+ Internal Rotation 3+ Fair+ Knee Strength Knee Manual Muscle Testing Right Flexion (S2) 4 Good Extension (L3) 4 Good Left Flexion (S2) 4 Good Extension (L3) 4- Good- Ankle/Foot Strength Ankle and Foot Manual Muscle Testing Right Dorsiflexion (L4) 5 Normal Plantarflexion (S1) 4+ Good+ Left Dorsiflexion (L4) 5 Normal Plantarflexion (S1) 4+ Good+ Comments PF tested seated PT-OP-Q Treatments Start: 10/29/21 07:41 Freq: Status: Active Protocol: Document 01/30/22 09:07 [facility] (Rec: 01/30/22 09:49 [facility] [id number]) Cardio Equipment Recumbent Elliptical (Biodex) Duration (Minutes) 7 Resistance 8 Seat Position 9 Gym Equipment Shuttle Rebound standing Reps/Duration 2lb wt rail prn Comments marching x10 B Shuttle Balance 2 Details red clips Comments fwd & side: WBOS & NBOS balanace, squats, wt shifts WBOS fwd; staggered stance balance Therapeutic Exercises Standing Exercises Step Ups Standing Exercise Name 1. step up w/alt march Side bilateral Equipment Used 8 in Reps/Minutes 10 Comments rail prn mini lunge Standing Exercise Name rail prn Side bilateral Reps/Minutes 15 Therapeutic Activity Therapeutic Activity on/off ground Comments working on getting up/down from ground using lunge and bear stance position techniques. Pt can get down but cannot get up w/o UE support Neuro Re-Education Treatment Balance Activities head turns Details vert/hor Reps/Duration 50ftx2 Comments walking at fast pace SLS Surface solid Equipment 12 in step Comments toe taps w/2# wts x15 2 Details hurdles (6) Equipment 2# Comments 1. Hurdles [id number] 2. Hurdles side x2 B 1 Details EC walk Reps/Duration 2x50ft PT-OP-T Assessment and Plan Start: 10/29/21 07:41 Freq: Status: Active Protocol: Document 01/30/22 09:07 [facility] (Rec: 01/30/22 09:49 [facility] [id number]) Physical Therapy Assessment Goals floor transfer Mcfp Goal (LTG) Pt will be able to get up/down from the ground w/o having outside support. LTG Duration 04/11 activities Mcfp Goal (LTG) Pt will report feeling stronger so she is able to do more household tasks in a better manner (making the bed, cooking, etc) without excessive fatigue 12/05-reports the fatigue is slightly better. Has good and bad days 01/09-improved LTG Duration 04/11 Dynamic balance Impairment DGI 1424; FGA 07/25 Short Term Goal (STG) Pt will improve DGI score to at least 20 to show dec risk for falls. STG Duration achieved 12/05 Business Support Administrator Goal (LTG) Pt will improve FGA score to at least 22/30 to show dec fall risk. 01/09- LTG Duration 04/11 HERNANDEZ Short Term Goal (STG) pt will improve HERNANDEZ score to at least 46/56 to show she is safe ambulator w/o AD and is less likely to fall. STG Duration achieved 49 12/05 Mcfp Goal (LTG) pt will improve HERNANDEZ score to at least 50/56 to show she is safe ambulator w/o AD outdoors and in the community. LTG Duration achieved to 52 sit to stand Short Term Goal (STG) Pt will be able to complete 5x sit to stand test. STG Duration achieved 12/05 Mcfp Goal (LTG) Pt will be able to do at least 9 sit to stands in 30 sec to show improved strength & balance. 01/09-8 LTG Duration 04/11 Assessment Summary Assessment Pt is challenged w/wts on. She had dificultly w/marches on trampoline. She was fatigued at end of session. She cannot get up from ground w/bear technique but does not have thequad strength to get up w/ lunge positoin w/o outside support. Physical Therapy Plan Frequency and Duration Frequency of Treatment 1-2x/Week Duration of Treatment 3 months Plan of Care Start Date 01/09/22 Plan of Care End Date 04/11/22 Next Visit Focus/Plan Next Note Type Treatment Note Next Visit Plan cont to advance strength and balance, work on floor transfers.
--- NOTE | 2022-02-03 09:45 | PT.OTN ---
Current Diagnoses Unsteadiness on feet (02/03/22) Abnormal posture (02/03/22) Weakness (02/03/22) Physical Therapy Treatment Note PT-OP-A Visit Information Start: 10/29/21 07:41 Freq: Status: Active Protocol: Document 02/03/22 09:01 [facility] (Rec: 02/03/22 09:45 [facility] [id number]) Out-Patient Physical Therapy Visit Information Visit Information Visit Type Treatment Note Visit Note 03/05 Visit Start Time 08:59 Visit Stop Time 09:42 Total Visit Minutes 43 Visit Number 24 Number of AUTOMOTIVE LEASING SALES REPRESENTATIVE Visits 0 PT-OP-B Current Condition Start: 10/29/21 07:41 Freq: Status: Active Protocol: Document 10/30/21 08:22 [facility] (Rec: 10/30/21 12:09 [facility] [id number]) Current Condition History of Current Condition Current Complaints falls, weakness History of Current Condition Pt reports since her stroke she has been weaker. Stroke was about 10 years ago and has done PT on/off which helps her but then she declines again. She had to hire someone for cleaning about 1 year ago d/t pt noting it just takes too long to do anything. Pt reports a couple years ago, she fell whenw alking with her friends so they won't let her walk with them anymore. She has not been in the garden for 3 years because [facility] will bend down to pick up driver a weed and fall over. She reports she is falling more recently. She fell 3 times in the last year. One time, she fell walking backwards down the last few steps and miscounted how many steps so seh fell over. One time, she fell backing up when squeezing between a chair. Pt reports she has to be very careful walking backwards. won't walk around the block w/her because he likes to go his own pace. She was doing the strength and balance class at [facility]. Pt reports she developed a sore ( red area) on her R foot at bottom of 5th MT and she got custom insoles. She still has to wear a bandage on it to keep it from hurting. Pt reports R hip has been on/off giving her trouble but unsure what causes pain. Some days it doesn't hurt at all and sometimes it does off/on. Pt does have macular degeneration and that does liimt her too. Pt reports ever since COVID vaccine has to be care when getting up otherwise gets dizzy Treatment Goals Patient/Caregiver Goals Be able to walk again by herself, be able to do some things around the house (be able to make bed better, be able to snap lids of containers, cook more, some other clean up) PT-OP-C Subjective Start: 10/29/21 07:41 Freq: Status: Active Protocol: Document 02/03/22 09:01 [facility] (Rec: 02/03/22 09:45 [facility] [id number]) OP-PT Subjective Patient Comments Patient Comments Pt reports she found she doesn 't feel like she can walk around her neighborhood d/t all the dips PT-OP-D Balance Start: 10/29/21 07:41 Freq: Status: Active Protocol: Document 01/09/22 09:52 [facility] (Rec: 01/09/22 10:34 [facility] [id number]) Balance Tests Hernandez Balance Test Hernandez Balance Test Score 52 PT-OP-E Functional Tests Start: 10/29/21 07:41 Freq: Status: Active Protocol: Document 01/09/22 09:52 [facility] (Rec: 01/09/22 10:34 [facility] [id number]) Functional Tests 30 Second Sit to Stand Test Score 8 Five Times Sit to Stand Test Score 19 sec Functional Gait Assessment Score 20 PT-OP-G Mobility & Gait Start: 10/29/21 07:41 Freq: Status: Active Protocol: Document 10/30/21 08:22 [facility] (Rec: 10/30/21 12:09 [facility] [id number]) OP Gait Assessment Comments Gait Comments Pt amb slowly w/dec push off and dec overall stability. PT-OP-J Posture/Palpation/Skin Start: 10/29/21 07:41 Freq: Status: Active Protocol: Document 10/30/21 08:22 [facility] (Rec: 10/30/21 15:52 [facility] [id number]) Posture Evaluation Comments Posture Comments inc kyphosis & fwd head PT-OP-M Strength Start: 10/29/21 07:41 Freq: Status: Active Protocol: Document 10/30/21 08:22 [facility] (Rec: 10/30/21 12:09 [facility] [id number]) Hip Strength Hip Manual Muscle Testing Right Flexion (L2) 3+ Fair+ External Rotation 3+ Fair+ Internal Rotation 3+ Fair+ Left Flexion (L2) 3+ Fair+ External Rotation 3+ Fair+ Internal Rotation 3+ Fair+ Knee Strength Knee Manual Muscle Testing Right Flexion (S2) 4 Good Extension (L3) 4 Good Left Flexion (S2) 4 Good Extension (L3) 4- Good- Ankle/Foot Strength Ankle and Foot Manual Muscle Testing Right Dorsiflexion (L4) 5 Normal Plantarflexion (S1) 4+ Good+ Left Dorsiflexion (L4) 5 Normal Plantarflexion (S1) 4+ Good+ Comments PF tested seated PT-OP-Q Treatments Start: 10/29/21 07:41 Freq: Status: Active Protocol: Document 02/03/22 09:01 [facility] (Rec: 02/03/22 09:45 [facility] [id number]) Cardio Equipment Recumbent Elliptical (Biodex) Duration (Minutes) 7 Resistance 8 Seat Position 9 Gym Equipment Shuttle Balance 2 Details red clips Comments fwd & side: WBOS & NBOS balanace, squats, wt shifts WBOS fwd; staggered stance balance Therapeutic Exercises Standing Exercises mini lunge Standing Exercise Name rail prn Side bilateral Reps/Minutes 12 squat Standing Exercise Name SL Side bilateral Equipment Used rail Reps/Minutes 12 heel raises Side bilateral Equipment Used 2# wt B ankles Reps/Minutes 15 Neuro Re-Education Treatment Balance Activities head turns Details vert/hor Equipment 2# wt on legs Reps/Duration 50ftx2 Comments walking at fast pace SLS Surface solid Equipment 12 in step Comments toe taps w/2# wts x15 Tandem walk Equipment 2# wt on LEs Comments 1.. line walk 50ft x2 2. tandem walk w/up to 2 fingers 2x20ft 2 Details hurdles (6) Equipment 2# Comments 1. Hurdles fwdx8 2. Hurdles side x2 B 1 Details EC walk Reps/Duration 2x50ft Comments 2# wt on legs PT-OP-T Assessment and Plan Start: 10/29/21 07:41 Freq: Status: Active Protocol: Document 02/03/22 09:01 [facility] (Rec: 02/03/22 09:45 [facility] [id number]) Physical Therapy Assessment Goals floor transfer Sanitation Laborer Goal (LTG) Pt will be able to get up/down from the ground w/o having outside support. LTG Duration 04/11 activities Prison Goal (LTG) Pt will report feeling stronger so she is able to do more household tasks in a better manner (making the bed, cooking, etc) without excessive fatigue 12/05-reports the fatigue is slightly better. Has good and bad days 01/09-improved LTG Duration 04/11 Dynamic balance Impairment DGI 1424; FGA 07/25 Short Term Goal (STG) Pt will improve DGI score to at least 20 to show dec risk for falls. STG Duration achieved 12/05 Prison Goal (LTG) Pt will improve FGA score to at least 22/30 to show dec fall risk. 01/09- LTG Duration 04/11 HERNANDEZ Short Term Goal (STG) pt will improve HERNANDEZ score to at least 46/56 to show she is safe ambulator w/o AD and is less likely to fall. STG Duration achieved 49 12/05 Sanitation Laborer Goal (LTG) pt will improve HERNANDEZ score to at least 50/56 to show she is safe ambulator w/o AD outdoors and in the community. LTG Duration achieved to 52 sit to stand Short Term Goal (STG) Pt will be able to complete 5x sit to stand test. STG Duration achieved 12/05 Prison Goal (LTG) Pt will be able to do at least 9 sit to stands in 30 sec to show improved strength & balance. 01/09-8 LTG Duration 04/11 Assessment Summary Assessment Pt did better with 2# wts today and showed less imbalance w/them on. She is improving overall with balance activities and more difficult exercises. Physical Therapy Plan Frequency and Duration Frequency of Treatment 1-2x/Week Duration of Treatment 3 months Plan of Care Start Date 01/09/22 Plan of Care End Date 04/11/22 Next Visit Focus/Plan Next Note Type Treatment Note Next Visit Plan cont to advance strength and balance, work on strength for floor transfers.
--- NOTE | 2022-02-05 16:01 | PT.OTN ---
Current Diagnoses Unsteadiness on feet (02/05/22) Abnormal posture (02/05/22) Weakness (02/05/22) Physical Therapy Treatment Note PT-OP-A Visit Information Start: 10/29/21 07:41 Freq: Status: Active Protocol: Document 02/05/22 09:54 AMB (Rec: 02/05/22 10:31 AMB [id number]) Out-Patient Physical Therapy Visit Information Visit Information Visit Type Treatment Note Visit Note 04/05 Visit Start Time 09:55 Visit Stop Time 10:30 Total Visit Minutes 35 Visit Number 25 PT-OP-B Current Condition Start: 10/29/21 07:41 Freq: Status: Active Protocol: Document 10/30/21 08:22 [facility] (Rec: 10/30/21 12:09 [facility] [id number]) Current Condition History of Current Condition Current Complaints falls, weakness History of Current Condition Pt reports since her stroke she has been weaker. Stroke was about 10 years ago and has done PT on/off which helps her but then she declines again. She had to hire someone for cleaning about 1 year ago d/t pt noting it just takes too long to do anything. Pt reports a couple years ago, she fell whenw alking with her friends so they won't let her walk with them anymore. She has not been in the garden for 3 years because [facility] will bend down to shredder picker a weed and fall over. She reports she is falling more recently. She fell 3 times in the last year. One time, she fell walking backwards down the last few steps and miscounted how many steps so seh fell over. One time, she fell backing up when squeezing between a chair. Pt reports she has to be very careful walking backwards. won't walk around the block w/her because he likes to go his own pace. She was doing the strength and balance class at [facility]. Pt reports she developed a sore ( red area) on her R foot at bottom of 5th MT and she got custom insoles. She still has to wear a bandage on it to keep it from hurting. Pt reports R hip has been on/off giving her trouble but unsure what causes pain. Some days it doesn't hurt at all and sometimes it does off/on. Pt does have macular degeneration and that does liimt her too. Pt reports ever since COVID vaccine has to be care when getting up otherwise gets dizzy Treatment Goals Patient/Caregiver Goals Be able to walk again by herself, be able to do some things around the house (be able to make bed better, be able to snap lids of containers, cook more, some other clean up) PT-OP-C Subjective Start: 10/29/21 07:41 Freq: Status: Active Protocol: Document 02/05/22 09:45 AMB (Rec: 02/05/22 15:53 AMB [id number]) OP-PT Subjective Patient Comments Patient Comments Pt continues to feel that she is concerned about walking on the sidewalk due to the driveways, she thinks she could manage the street though . PT-OP-D Balance Start: 10/29/21 07:41 Freq: Status: Active Protocol: Document 01/09/22 09:52 [facility] (Rec: 01/09/22 10:34 [facility] [id number]) Balance Tests Hernandez Balance Test Hernandez Balance Test Score 52 PT-OP-E Functional Tests Start: 10/29/21 07:41 Freq: Status: Active Protocol: Document 01/09/22 09:52 [facility] (Rec: 01/09/22 10:34 [facility] [id number]) Functional Tests 30 Second Sit to Stand Test Score 8 Five Times Sit to Stand Test Score 19 sec Functional Gait Assessment Score 20 PT-OP-G Mobility & Gait Start: 10/29/21 07:41 Freq: Status: Active Protocol: Document 10/30/21 08:22 [facility] (Rec: 10/30/21 12:09 [facility] [id number]) OP Gait Assessment Comments Gait Comments Pt amb slowly w/dec push off and dec overall stability. PT-OP-J Posture/Palpation/Skin Start: 10/29/21 07:41 Freq: Status: Active Protocol: Document 10/30/21 08:22 [facility] (Rec: 10/30/21 15:52 [facility] [id number]) Posture Evaluation Comments Posture Comments inc kyphosis & fwd head PT-OP-M Strength Start: 10/29/21 07:41 Freq: Status: Active Protocol: Document 10/30/21 08:22 [facility] (Rec: 10/30/21 12:09 [facility] [id number]) Hip Strength Hip Manual Muscle Testing Right Flexion (L2) 3+ Fair+ External Rotation 3+ Fair+ Internal Rotation 3+ Fair+ Left Flexion (L2) 3+ Fair+ External Rotation 3+ Fair+ Internal Rotation 3+ Fair+ Knee Strength Knee Manual Muscle Testing Right Flexion (S2) 4 Good Extension (L3) 4 Good Left Flexion (S2) 4 Good Extension (L3) 4- Good- Ankle/Foot Strength Ankle and Foot Manual Muscle Testing Right Dorsiflexion (L4) 5 Normal Plantarflexion (S1) 4+ Good+ Left Dorsiflexion (L4) 5 Normal Plantarflexion (S1) 4+ Good+ Comments PF tested seated PT-OP-Q Treatments Start: 10/29/21 07:41 Freq: Status: Active Protocol: Document 02/05/22 09:45 AMB (Rec: 02/05/22 15:53 AMB [id number]) Cardio Equipment Recumbent Elliptical (Biodex) Duration (Minutes) 7 Resistance 8 Seat Position 9 Therapeutic Exercises Standing Exercises mini lunge Standing Exercise Name rail prn Side bilateral Reps/Minutes 12 squat Standing Exercise Name SL Side bilateral Equipment Used rail Reps/Minutes 12 sit to stand Side bilateral Reps/Minutes x10 Comments no hands, vc for controlled descent, full upright posture hip abd Standing Exercise Name sidestep Side bilateral Equipment Used lvl 3 Reps/Minutes 20ft ea Gait Training Gait Activity 1 Description outdoor, sidewalk/gravel Device Used trekking pole Level of Assistance SBA Distance/Duration 7 min PT-OP-T Assessment and Plan Start: 10/29/21 07:41 Freq: Status: Active Protocol: Document 02/05/22 09:54 AMB (Rec: 02/05/22 10:31 AMB [id number]) Physical Therapy Assessment Goals floor transfer Sales Commissions Analyst Goal (LTG) Pt will be able to get up/down from the ground w/o having outside support. LTG Duration 04/11 activities Assisted Goal (LTG) Pt will report feeling stronger so she is able to do more household tasks in a better manner (making the bed, cooking, etc) without excessive fatigue 12/05-reports the fatigue is slightly better. Has good and bad days 01/09-improved LTG Duration 04/11 Dynamic balance Impairment DGI 24; FGA 07/25 Short Term Goal (STG) Pt will improve DGI score to at least 20 to show dec risk for falls. STG Duration achieved 12/05 Sales Commissions Analyst Goal (LTG) Pt will improve FGA score to at least 22/30 to show dec fall risk. 01/09- LTG Duration 04/11 HERNANDEZ Short Term Goal (STG) pt will improve HERNANDEZ score to at least 46/56 to show she is safe ambulator w/o AD and is less likely to fall. STG Duration achieved 49 5/ Sales Commissions Analyst Goal (LTG) pt will improve HERNANDEZ score to at least 50/56 to show she is safe ambulator w/o AD outdoors and in the community. LTG Duration achieved to 52 sit to stand Short Term Goal (STG) Pt will be able to complete 5x sit to stand test. STG Duration achieved 12/05 Sales Commissions Analyst Goal (LTG) Pt will be able to do at least 9 sit to stands in 30 sec to show improved strength & balance. 01/09- LTG Duration 04/11 Assessment Summary Assessment Viky did well ambulating outdoors. If she doesn't have significant traffic in her [facility] and feels comfortable walking with a trekking pole and a cell phone she could consider going on a short walk (recommend less than 5 minutes to start to further assess how she does). Physical Therapy Plan Next Visit Focus/Plan Next Note Type Treatment Note Next Visit Plan cont to advance strength and balance, work on strength for floor transfers.
--- NOTE | 2022-02-10 09:50 | PT.OTN ---
Current Diagnoses Unsteadiness on feet (02/10/22) Abnormal posture (02/10/22) Weakness (02/10/22) Physical Therapy Treatment Note PT-OP-A Visit Information Start: 10/29/21 07:41 Freq: Status: Active Protocol: Document 02/10/22 09:13 [facility] (Rec: 02/10/22 09:50 [facility] [id number]) Out-Patient Physical Therapy Visit Information Visit Information Visit Type Progress Note Visit Note 08/05 Visit Start Time 09:07 Visit Stop Time 09:45 Total Visit Minutes 38 Visit Number 26 Number of FACILITIES ENGINEER Visits 0 PT-OP-B Current Condition Start: 10/29/21 07:41 Freq: Status: Active Protocol: Document 10/30/21 08:22 [facility] (Rec: 10/30/21 12:09 [facility] [id number]) Current Condition History of Current Condition Current Complaints falls, weakness History of Current Condition Pt reports since her stroke she has been weaker. Stroke was about 10 years ago and has done PT on/off which helps her but then she declines again. She had to hire someone for cleaning about 1 year ago d/t pt noting it just takes too long to do anything. Pt reports a couple years ago, she fell whenw alking with her friends so they won't let her walk with them anymore. She has not been in the garden for 3 years because [facility] will bend down to picker machine operator a weed and fall over. She reports she is falling more recently. She fell 3 times in the last year. One time, she fell walking backwards down the last few steps and miscounted how many steps so seh fell over. One time, she fell backing up when squeezing between a chair. Pt reports she has to be very careful walking backwards. won't walk around the block w/her because he likes to go his own pace. She was doing the strength and balance class at [facility]. Pt reports she developed a sore ( red area) on her R foot at bottom of 5th MT and she got custom insoles. She still has to wear a bandage on it to keep it from hurting. Pt reports R hip has been on/off giving her trouble but unsure what causes pain. Some days it doesn't hurt at all and sometimes it does off/on. Pt does have macular degeneration and that does liimt her too. Pt reports ever since COVID vaccine has to be care when getting up otherwise gets dizzy Treatment Goals Patient/Caregiver Goals Be able to walk again by herself, be able to do some things around the house (be able to make bed better, be able to snap lids of containers, cook more, some other clean up) PT-OP-C Subjective Start: 10/29/21 07:41 Freq: Status: Active Protocol: Document 02/10/22 09:13 [facility] (Rec: 02/10/22 09:50 [facility] [id number]) OP-PT Subjective Patient Comments Patient Comments Pt reports doing 1 walk on her own. PT-OP-D Balance Start: 10/29/21 07:41 Freq: Status: Active Protocol: Document 01/09/22 09:52 [facility] (Rec: 01/09/22 10:34 [facility] [id number]) Balance Tests Hernandez Balance Test Hernandez Balance Test Score 52 PT-OP-E Functional Tests Start: 10/29/21 07:41 Freq: Status: Active Protocol: Document 02/10/22 09:13 [facility] (Rec: 02/10/22 09:50 [facility] [id number]) Functional Tests 30 Second Sit to Stand Test Score 9 Five Times Sit to Stand Test Score 16 sec Functional Gait Assessment Score 22 PT-OP-G Mobility & Gait Start: 10/29/21 07:41 Freq: Status: Active Protocol: Document 10/30/21 08:22 [facility] (Rec: 10/30/21 12:09 [facility] [id number]) OP Gait Assessment Comments Gait Comments Pt amb slowly w/dec push off and dec overall stability. PT-OP-J Posture/Palpation/Skin Start: 10/29/21 07:41 Freq: Status: Active Protocol: Document 10/30/21 08:22 [facility] (Rec: 10/30/21 15:52 [facility] [id number]) Posture Evaluation Comments Posture Comments inc kyphosis & fwd head PT-OP-M Strength Start: 10/29/21 07:41 Freq: Status: Active Protocol: Document 02/10/22 09:13 [facility] (Rec: 02/10/22 09:50 [facility] [id number]) Hip Strength Hip Manual Muscle Testing Right Flexion (L2) 3+ Fair+ External Rotation 4- Good- Internal Rotation 4- Good- Left Flexion (L2) 4 Good External Rotation 4- Good- Internal Rotation 4 Good Knee Strength Knee Manual Muscle Testing Right Flexion (S2) 4+ Good+ Extension (L3) 4+ Good+ Left Flexion (S2) 4+ Good+ Extension (L3) 4+ Good+ Ankle/Foot Strength Ankle and Foot Manual Muscle Testing Right Dorsiflexion (L4) 5 Normal Plantarflexion (S1) 5 Normal Left Dorsiflexion (L4) 5 Normal Plantarflexion (S1) 5 Normal Comments PF tested seated PT-OP-Q Treatments Start: 10/29/21 07:41 Freq: Status: Active Protocol: Document 02/10/22 09:13 [facility] (Rec: 02/10/22 09:50 [facility] [id number]) Cardio Equipment Recumbent Elliptical (BiodTray) Duration (Minutes) 7 Resistance 8 Seat Position 9 Therapeutic Exercises Standing Exercises Step Ups Standing Exercise Name 8 in Side bilateral Equipment Used 4# wts B Reps/Minutes 10 Comments rail prn mini lunge Standing Exercise Name rail prn Side bilateral Reps/Minutes 10 squat Standing Exercise Name DL w/band around knees Side bilateral Equipment Used L3 Reps/Minutes 15 Comments cues for knee positon & inc range Neuro Re-Education Treatment Balance Activities bosu Details standing balance SLS Surface solid Equipment 12 in step Comments toe taps w/4# wts x15 2 Details hurdles (6) Equipment 4# Comments 1. Hurdles [id number] 2. Hurdles side x2 B PT-OP-T Assessment and Plan Start: 10/29/21 07:41 Freq: Status: Active Protocol: Document 02/10/22 09:13 [facility] (Rec: 02/10/22 09:50 [facility] [id number]) Physical Therapy Assessment Goals floor transfer Record Center Specialist Goal (LTG) Pt will be able to get up/down from the ground w/o having outside support. 02/10-can get down but not up LTG Duration 04/11 activities Nursing Home Goal (LTG) Pt will report feeling stronger so she is able to do more household tasks in a better manner (making the bed, cooking, etc) without excessive fatigue 12/05-reports the fatigue is slightly better. Has good and bad days 01/09-improved 02/10-reports doing more but still feels limited LTG Duration 04/11 Dynamic balance Impairment DGI ; FGA 07/25 Short Term Goal (STG) Pt will improve DGI score to at least 20 to show dec risk for falls. STG Duration achieved 12/05 Nursing Home Goal (LTG) Pt will improve FGA score to at least 22/30 to show dec fall risk. 01/09- LTG Duration achieved 02/10 HERNANDEZ Short Term Goal (STG) pt will improve HERNANDEZ score to at least 46/56 to show she is safe ambulator w/o AD and is less likely to fall. STG Duration achieved 49 12/05 Record Center Specialist Goal (LTG) pt will improve HERNANDEZ score to at least 50/56 to show she is safe ambulator w/o AD outdoors and in the community. LTG Duration achieved to 52 sit to stand Short Term Goal (STG) Pt will be able to complete 5x sit to stand test. STG Duration achieved 12/05 Record Center Specialist Goal (LTG) Pt will be able to do at least 9 sit to stands in 30 sec to show improved strength & balance. 01/09- LTG Duration achieved 02/10 Assessment Summary Assessment Pt is making excellent progress with therapy. She shows imrpoved strength, balance and functional ability . She does still feel limited and doess til note conern w/ walking alone and is gradually progressing. Cont PT for strength and balance. Physical Therapy Plan Frequency and Duration Frequency of Treatment 1-2x/Week Duration of Treatment 3 months Plan of Care Start Date 01/09/22 Plan of Care End Date 04/11/22 Therapeutic Interventions Therapeutic Interventions Aquatic Therapy,Balance Training,Gait Training,Home Exercise Program,Manual Therapy,Neuromuscular Re- education,Patient/Caregiver Education,Self-Care/Home Management,Soft Tissue Mobilization,Taping, Therapeutic Activities, Therapeutic Exercises Modalities Cold Pack/Ice Massage,Hot Packs Next Visit Focus/Plan Next Note Type Treatment Note Next Visit Plan cont to advance strength and balance, work on strength for floor transfers.
--- NOTE | 2022-02-12 10:32 | PT.OTN ---
Current Diagnoses Unsteadiness on feet (02/12/22) Abnormal posture (02/12/22) Weakness (02/12/22) Physical Therapy Treatment Note PT-OP-A Visit Information Start: 10/29/21 07:41 Freq: Status: Active Protocol: Document 02/12/22 09:54 [facility] (Rec: 02/12/22 10:32 [facility] [id number]) Out-Patient Physical Therapy Visit Information Visit Information Visit Type Treatment Note Visit Note 09/05 Visit Start Time 09:52 Visit Stop Time 10:30 Total Visit Minutes 38 Visit Number 27 Number of PODIATRIST ORTHOPEDIC Visits 0 PT-OP-B Current Condition Start: 10/29/21 07:41 Freq: Status: Active Protocol: Document 10/30/21 08:22 [facility] (Rec: 10/30/21 12:09 [facility] [id number]) Current Condition History of Current Condition Current Complaints falls, weakness History of Current Condition Pt reports since her stroke she has been weaker. Stroke was about 10 years ago and has done PT on/off which helps her but then she declines again. She had to hire someone for cleaning about 1 year ago d/t pt noting it just takes too long to do anything. Pt reports a couple years ago, she fell whenw alking with her friends so they won't let her walk with them anymore. She has not been in the garden for 3 years because [facility] will bend down to bulk picker a weed and fall over. She reports she is falling more recently. She fell 3 times in the last year. One time, she fell walking backwards down the last few steps and miscounted how many steps so seh fell over. One time, she fell backing up when squeezing between a chair. Pt reports she has to be very careful walking backwards. won't walk around the block w/her because he likes to go his own pace. She was doing the strength and balance class at [facility]. Pt reports she developed a sore ( red area) on her R foot at bottom of 5th MT and she got custom insoles. She still has to wear a bandage on it to keep it from hurting. Pt reports R hip has been on/off giving her trouble but unsure what causes pain. Some days it doesn't hurt at all and sometimes it does off/on. Pt does have macular degeneration and that does liimt her too. Pt reports ever since COVID vaccine has to be care when getting up otherwise gets dizzy Treatment Goals Patient/Caregiver Goals Be able to walk again by herself, be able to do some things around the house (be able to make bed better, be able to snap lids of containers, cook more, some other clean up) PT-OP-C Subjective Start: 10/29/21 07:41 Freq: Status: Active Protocol: Document 02/12/22 09:54 [facility] (Rec: [facility]12/[facility] 10[id number]-PT Subjective Patient Comments Patient Comments Yesterday, I mopped the kitchen floor. I don't remember the last time I did that. PT-OP-D Balance Start: 10/29/21 07:41 Freq: Status: Active Protocol: Document 01/09/22 09:52 [facility] (Rec: 01/09/22 10:34 [facility] [id number]) Balance Tests Hernandez Balance Test Hernandez Balance Test Score 52 PT-OP-E Functional Tests Start: 10/29/21 07:41 Freq: Status: Active Protocol: Document 02/10/22 09:13 [facility] (Rec: 02/10/22 09:50 [facility] [id number]) Functional Tests 30 Second Sit to Stand Test Score 9 Five Times Sit to Stand Test Score 16 sec Functional Gait Assessment Score 22 PT-OP-G Mobility & Gait Start: 10/29/21 07:41 Freq: Status: Active Protocol: Document 10/30/21 08:22 [facility] (Rec: 10/30/21 12:09 [facility] [id number]) OP Gait Assessment Comments Gait Comments Pt amb slowly w/dec push off and dec overall stability. PT-OP-J Posture/Palpation/Skin Start: 10/29/21 07:41 Freq: Status: Active Protocol: Document 10/30/21 08:22 [facility] (Rec: 10/30/21 15:52 [facility] [id number]) Posture Evaluation Comments Posture Comments inc kyphosis & fwd head PT-OP-M Strength Start: 10/29/21 07:41 Freq: Status: Active Protocol: Document 02/10/22 09:13 [facility] (Rec: 02/10/22 09:50 [facility] [id number]) Hip Strength Hip Manual Muscle Testing Right Flexion (L2) 3+ Fair+ External Rotation 4- Good- Internal Rotation 4- Good- Left Flexion (L2) 4 Good External Rotation 4- Good- Internal Rotation 4 Good Knee Strength Knee Manual Muscle Testing Right Flexion (S2) 4+ Good+ Extension (L3) 4+ Good+ Left Flexion (S2) 4+ Good+ Extension (L3) 4+ Good+ Ankle/Foot Strength Ankle and Foot Manual Muscle Testing Right Dorsiflexion (L4) 5 Normal Plantarflexion (S1) 5 Normal Left Dorsiflexion (L4) 5 Normal Plantarflexion (S1) 5 Normal Comments PF tested seated PT-OP-Q Treatments Start: 10/29/21 07:41 Freq: Status: Active Protocol: Document 02/12/22 09:54 [facility] (Rec: 02/12/22 10:32 [facility] [id number]) Cardio Equipment Recumbent Stepper (Sci-Fit) Duration (Minutes) 8 Resistance 7 Seat Position 10 Gym Equipment Shuttle Balance 2 Details red clips Comments fwd & side: WBOS & NBOS balanace, squats, wt shifts WBOS fwd; staggered stance balance Therapeutic Exercises Standing Exercises SL Standing Exercise Name SL squat w/bar Side bilateral Reps/Minutes 10 Step Ups Standing Exercise Name 8 in Side bilateral Equipment Used 4# wts B Reps/Minutes 10 Comments rail prn mini lunge Standing Exercise Name rail prn Side bilateral Reps/Minutes 12 squat Standing Exercise Name DL w/band around knees Side bilateral Equipment Used L3 Reps/Minutes 15 Comments cues for knee positon & inc range Neuro Re-Education Treatment Balance Activities bosu Details standing balance head turns Details vert/hor Equipment 4# wt on legs Reps/Duration 50ftx2 Comments walking at fast pace SLS Surface solid Equipment 12 in step Comments toe taps w/4# wts x15 Tandem walk Equipment 4# wt on LEs Comments 1.. line walk 50ft x2 2. tandem walk w/up to 2 fingers 2x20ft PT-OP-T Assessment and Plan Start: 10/29/21 07:41 Freq: Status: Active Protocol: Document 02/12/22 09:54 [facility] (Rec: 02/12/22 10:32 [facility] [id number]) Physical Therapy Assessment Goals floor transfer Alf Goal (LTG) Pt will be able to get up/down from the ground w/o having outside support. 02/10-can get down but not up LTG Duration 04/11 activities Belt Puncher Goal (LTG) Pt will report feeling stronger so she is able to do more household tasks in a better manner (making the bed, cooking, etc) without excessive fatigue 12/05-reports the fatigue is slightly better. Has good and bad days 01/09-improved 02/10-reports doing more but still feels limited LTG Duration 04/11 Dynamic balance Impairment DGI 24; FGA 07/25 Short Term Goal (STG) Pt will improve DGI score to at least 20 to show dec risk for falls. STG Duration achieved 12/05 Alf Goal (LTG) Pt will improve FGA score to at least 22/30 to show dec fall risk. 01/09- LTG Duration achieved 02/10 HERNANDEZ Short Term Goal (STG) pt will improve HERNANDEZ score to at least 46/56 to show she is safe ambulator w/o AD and is less likely to fall. STG Duration achieved 49 12/05 Belt Puncher Goal (LTG) pt will improve HERNANDEZ score to at least 50/56 to show she is safe ambulator w/o AD outdoors and in the community. LTG Duration achieved to 52 sit to stand Short Term Goal (STG) Pt will be able to complete 5x sit to stand test. STG Duration achieved 12/05 Alf Goal (LTG) Pt will be able to do at least 9 sit to stands in 30 sec to show improved strength & balance. 01/09- LTG Duration achieved 02/10 Assessment Summary Assessment Pt still requires cues for knees w/squatting activtiies but is doing better when cued keeping knee tracking more neutarl. She definitely has more challenge w/dynamic balance activities with 4# wt on ankles. Physical Therapy Plan Frequency and Duration Frequency of Treatment 1-2x/Week Duration of Treatment 3 months Plan of Care Start Date 01/09/22 Plan of Care End Date 04/11/22 Next Visit Focus/Plan Next Note Type Treatment Note Next Visit Plan cont to advance strength and balance, work on strength for floor transfers.
--- NOTE | 2022-02-18 09:45 | PT.OTN ---
Current Diagnoses Unsteadiness on feet (02/20/22) Abnormal posture (02/20/22) Weakness (02/20/22) Physical Therapy Treatment Note PT-OP-A Visit Information Start: 10/29/21 07:41 Freq: Status: Active Protocol: Document 02/26/22 13:13 [facility] (Rec: 02/18/22 09:47 NB [id number]) Out-Patient Physical Therapy Visit Information Visit Information Visit Type Treatment Note Visit Note 10/03 Visit Start Time 09:05 Visit Stop Time 09:49 Total Visit Minutes 44 Visit Number 28 Number of TEXTILE MACHINE OPERATOR Visits 1 PT-OP-B Current Condition Start: 10/29/21 07:41 Freq: Status: Active Protocol: Document 10/30/21 08:22 [facility] (Rec: 10/30/21 12:09 [facility] [id number]) Current Condition History of Current Condition Current Complaints falls, weakness History of Current Condition Pt reports since her stroke she has been weaker. Stroke was about 10 years ago and has done PT on/off which helps her but then she declines again. She had to hire someone for cleaning about 1 year ago d/t pt noting it just takes too long to do anything. Pt reports a couple years ago, she fell whenw alking with her friends so they won't let her walk with them anymore. She has not been in the garden for 3 years because [facility] will bend down to picker tender helper a weed and fall over. She reports she is falling more recently. She fell 3 times in the last year. One time, she fell walking backwards down the last few steps and miscounted how many steps so seh fell over. One time, she fell backing up when squeezing between a chair. Pt reports she has to be very careful walking backwards. won't walk around the block w/her because he likes to go his own pace. She was doing the strength and balance class at [facility]. Pt reports she developed a sore ( red area) on her R foot at bottom of 5th MT and she got custom insoles. She still has to wear a bandage on it to keep it from hurting. Pt reports R hip has been on/off giving her trouble but unsure what causes pain. Some days it doesn't hurt at all and sometimes it does off/on. Pt does have macular degeneration and that does liimt her too. Pt reports ever since COVID vaccine has to be care when getting up otherwise gets dizzy Treatment Goals Patient/Caregiver Goals Be able to walk again by herself, be able to do some things around the house (be able to make bed better, be able to snap lids of containers, cook more, some other clean up) PT-OP-C Subjective Start: 10/29/21 07:41 Freq: Status: Active Protocol: Document 02/26/22 13:13 [facility] (Rec: 02/18/22 09:47 [facility] [id number]) OP-PT Subjective Patient Comments Patient Comments Viky reports she has walked outside three times w/ trekking pole in right hand since last visit, twice without her which makes her feel better. She reports she can get down to the floor but can't get up without a chair. PT-OP-D Balance Start: 10/29/21 07:41 Freq: Status: Active Protocol: Document 01/09/22 09:52 [facility] (Rec: 01/09/22 10:34 [facility] [id number]) Balance Tests Hernandez Balance Test Hernandez Balance Test Score 52 PT-OP-E Functional Tests Start: 10/29/21 07:41 Freq: Status: Active Protocol: Document 02/10/22 09:13 [facility] (Rec: 02/10/22 09:50 [facility] [id number]) Functional Tests 30 Second Sit to Stand Test Score 9 Five Times Sit to Stand Test Score 16 sec Functional Gait Assessment Score 22 PT-OP-G Mobility & Gait Start: 10/29/21 07:41 Freq: Status: Active Protocol: Document 10/30/21 08:22 [facility] (Rec: 10/30/21 12:09 [facility] [id number]) OP Gait Assessment Comments Gait Comments Pt amb slowly w/dec push off and dec overall stability. PT-OP-J Posture/Palpation/Skin Start: 10/29/21 07:41 Freq: Status: Active Protocol: Document 10/30/21 08:22 [facility] (Rec: 10/30/21 15:52 [facility] [id number]) Posture Evaluation Comments Posture Comments inc kyphosis & fwd head PT-OP-M Strength Start: 10/29/21 07:41 Freq: Status: Active Protocol: Document 02/10/22 09:13 [facility] (Rec: 02/10/22 09:50 [facility] [id number]) Hip Strength Hip Manual Muscle Testing Right Flexion (L2) 3+ Fair+ External Rotation 4- Good- Internal Rotation 4- Good- Left Flexion (L2) 4 Good External Rotation 4- Good- Internal Rotation 4 Good Knee Strength Knee Manual Muscle Testing Right Flexion (S2) 4+ Good+ Extension (L3) 4+ Good+ Left Flexion (S2) 4+ Good+ Extension (L3) 4+ Good+ Ankle/Foot Strength Ankle and Foot Manual Muscle Testing Right Dorsiflexion (L4) 5 Normal Plantarflexion (S1) 5 Normal Left Dorsiflexion (L4) 5 Normal Plantarflexion (S1) 5 Normal Comments PF tested seated PT-OP-Q Treatments Start: 10/29/21 07:41 Freq: Status: Active Protocol: Document 02/26/22 13:13 [facility] (Rec: 02/18/22 09:47 [facility] [id number]) Cardio Equipment Recumbent Stepper (Sci-Fit) Duration (Minutes) 8 Resistance 7 Seat Position 10 Therapeutic Exercises Sitting Exercises Hip Abduction Side bilateral Resistance Lvl 2 Tb above knees Reps/Minutes 2 x 10 Comments added to HEP Hip Adduction Equipment Used Blue ball Reps/Minutes 10 x 2-3SH Comments added to HEP Marching Side bilateral Reps/Minutes 1 x10 ea LAQ Side bilateral Reps/Minutes 1x10 ea Gait Training Gait Activity 1 Device Used PiAuto Level of Assistance SBA Distance/Duration 10 min Self-Care/Home Management Treatment Education Patient Education Home Exercise Program Other Education seated hip add/abd w/ tb added to HEP- no HO given per pt request. PT-OP-T Assessment and Plan Start: 10/29/21 07:41 Freq: Status: Active Protocol: Document 02/26/22 13:13 [facility] (Rec: 02/18/22 09:47 [facility] [id number]) Physical Therapy Assessment Goals floor transfer Program Technician Goal (LTG) Pt will be able to get up/down from the ground w/o having outside support. 02/10-can get down but not up LTG Duration 04/11 activities Program Technician Goal (LTG) Pt will report feeling stronger so she is able to do more household tasks in a better manner (making the bed, cooking, etc) without excessive fatigue 12/05-reports the fatigue is slightly better. Has good and bad days 01/09-improved 02/10-reports doing more but still feels limited LTG Duration 04/11 Dynamic balance Impairment DGI 24; FGA 07/25 Short Term Goal (STG) Pt will improve DGI score to at least 20 to show dec risk for falls. STG Duration achieved 12/05 Long-Term Goal (LTG) Pt will improve FGA score to at least 22/30 to show dec fall risk. 01/09- LTG Duration achieved 02/10 HERNANDEZ Short Term Goal (STG) pt will improve HERNANDEZ score to at least 46/56 to show she is safe ambulator w/o AD and is less likely to fall. STG Duration achieved 49 12/05 Long-Term Goal (LTG) pt will improve HERNANDEZ score to at least 50/56 to show she is safe ambulator w/o AD outdoors and in the community. LTG Duration achieved to 52 sit to stand Short Term Goal (STG) Pt will be able to complete 5x sit to stand test. STG Duration achieved 12/05 Program Technician Goal (LTG) Pt will be able to do at least 9 sit to stands in 30 sec to show improved strength & balance. 01/09- LTG Duration achieved 02/10 Assessment Summary Assessment Pt demonstrates improved confidence w/ gait w/ trekking pole in R hand and plans to bring hers from home for height check and progressing gait training. Pt declined gait training and floor transfer activity same session today due to fatigue. Seated hip add/abd w/ tb added to HEP - no HO given per pt request. Physical Therapy Plan Next Visit Focus/Plan Next Note Type Treatment Note Next Visit Plan Start w/ floor transfers. cont to advance strength and balance, work on strength for floor transfers.
--- NOTE | 2022-02-20 09:51 | PT.OTN ---
Current Diagnoses Unsteadiness on feet (02/20/22) Abnormal posture (02/20/22) Weakness (02/20/22) Physical Therapy Treatment Note PT-OP-A Visit Information Start: 10/29/21 07:41 Freq: Status: Active Protocol: Document 02/20/22 09:13 [facility] (Rec: 02/20/22 09:51 [facility] [id number]) Out-Patient Physical Therapy Visit Information Visit Information Visit Type Treatment Note Visit Note 11/03 Visit Start Time 09:07 Visit Stop Time 09:45 Total Visit Minutes 38 Visit Number 29 Number of WAGON DRIVER SALESPERSON Visits 0 PT-OP-B Current Condition Start: 10/29/21 07:41 Freq: Status: Active Protocol: Document 10/30/21 08:22 [facility] (Rec: 10/30/21 12:09 [facility] [id number]) Current Condition History of Current Condition Current Complaints falls, weakness History of Current Condition Pt reports since her stroke she has been weaker. Stroke was about 10 years ago and has done PT on/off which helps her but then she declines again. She had to hire someone for cleaning about 1 year ago d/t pt noting it just takes too long to do anything. Pt reports a couple years ago, she fell whenw alking with her friends so they won't let her walk with them anymore. 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 She reports she is falling more recently. She fell 3 times in the last year. One time, she fell walking backwards down the last few steps and miscounted how many steps so seh fell over. One time, she fell backing up when squeezing between a chair. Pt reports she has to be very careful walking backwards. won't walk around the block w/her because he likes to go his own pace. She was doing the strength and balance class at [facility]. Pt reports she developed a sore ( red area) on her R foot at bottom of 5th MT and she got custom insoles. She still has to wear a bandage on it to keep it from hurting. Pt reports R hip has been on/off giving her trouble but unsure what causes pain. Some days it doesn't hurt at all and sometimes it does off/on. Pt does have macular degeneration and that does liimt her too. Pt reports ever since COVID vaccine has to be care when getting up otherwise gets dizzy Treatment Goals Patient/Caregiver Goals Be able to walk again by herself, be able to do some things around the house (be able to make bed better, be able to snap lids of containers, cook more, some other clean up) PT-OP-C Subjective Start: 10/29/21 07:41 Freq: Status: Active Protocol: Document 02/20/22 09:13 [facility] (Rec: 02/20/22 09:51 [facility] [id number]) OP-PT Subjective Patient Comments Patient Comments Pt reports she hasn't walked as much this week. PT-OP-D Balance Start: 10/29/21 07:41 Freq: Status: Active Protocol: Document 01/09/22 09:52 [facility] (Rec: 01/09/22 10:34 [facility] [id number]) Balance Tests Hernandez Balance Test Hernandez Balance Test Score 52 PT-OP-E Functional Tests Start: 10/29/21 07:41 Freq: Status: Active Protocol: Document 02/10/22 09:13 [facility] (Rec: 02/10/22 09:50 [facility] [id number]) Functional Tests 30 Second Sit to Stand Test Score 9 Five Times Sit to Stand Test Score 16 sec Functional Gait Assessment Score 22 PT-OP-G Mobility & Gait Start: 10/29/21 07:41 Freq: Status: Active Protocol: Document 10/30/21 08:22 [facility] (Rec: 10/30/21 12:09 [facility] [id number]) OP Gait Assessment Comments Gait Comments Pt amb slowly w/dec push off and dec overall stability. PT-OP-J Posture/Palpation/Skin Start: 10/29/21 07:41 Freq: Status: Active Protocol: Document 10/30/21 08:22 [facility] (Rec: 10/30/21 15:52 [facility] [id number]) Posture Evaluation Comments Posture Comments inc kyphosis & fwd head PT-OP-M Strength Start: 10/29/21 07:41 Freq: Status: Active Protocol: Document 02/10/22 09:13 [facility] (Rec: 02/10/22 09:50 [facility] [id number]) Hip Strength Hip Manual Muscle Testing Right Flexion (L2) 3+ Fair+ External Rotation 4- Good- Internal Rotation 4- Good- Left Flexion (L2) 4 Good External Rotation 4- Good- Internal Rotation 4 Good Knee Strength Knee Manual Muscle Testing Right Flexion (S2) 4+ Good+ Extension (L3) 4+ Good+ Left Flexion (S2) 4+ Good+ Extension (L3) 4+ Good+ Ankle/Foot Strength Ankle and Foot Manual Muscle Testing Right Dorsiflexion (L4) 5 Normal Plantarflexion (S1) 5 Normal Left Dorsiflexion (L4) 5 Normal Plantarflexion (S1) 5 Normal Comments PF tested seated PT-OP-Q Treatments Start: 10/29/21 07:41 Freq: Status: Active Protocol: Document 02/20/22 09:13 [facility] (Rec: 02/20/22 09:51 [facility] [id number]) Cardio Equipment Recumbent Elliptical (Biodex) Duration (Minutes) 7 Resistance 8 Seat Position 8 Gym Equipment Shuttle Balance 2 Details red clips Comments fwd & side: WBOS & NBOS balanace, squats, wt shifts WBOS fwd; staggered stance balance Therapeutic Exercises Sitting Exercises LAQ Side bilateral Equipment Used 4# Reps/Minutes 12 ea Standing Exercises mini lunge Standing Exercise Name rail prn Side bilateral Reps/Minutes 12 heel raises Side bilateral Reps/Minutes 20 Neuro Re-Education Treatment Balance Activities EC Details NBOS w/PT pertubations bosu Details standing balance head turns Details vert/hor Equipment 4# wt on legs Reps/Duration 50ftx4 Comments walking at fast pace SLS Surface solid Equipment 12 in step Comments toe taps w/4# wts x15 2 Details hurdles (6) Equipment 4# Comments 1. Hurdles [id number] 2. Hurdles side x2 B 1 Details EC walk Reps/Duration 2x50ft Comments 4# wt on legs PT-OP-T Assessment and Plan Start: 10/29/21 07:41 Freq: Status: Active Protocol: Document 02/20/22 09:13 [facility] (Rec: 02/20/22 09:51 [facility] [id number]) Physical Therapy Assessment Goals floor transfer School Commissioner Goal (LTG) Pt will be able to get up/down from the ground w/o having outside support. 02/10-can get down but not up LTG Duration 9/ activities Snf Goal (LTG) Pt will report feeling stronger so she is able to do more household tasks in a better manner (making the bed, cooking, etc) without excessive fatigue 12/05-reports the fatigue is slightly better. Has good and bad days 01/09-improved 02/10-reports doing more but still feels limited LTG Duration 04/11 Dynamic balance Impairment DGI 14/24; FGA 07/25 Short Term Goal (STG) Pt will improve DGI score to at least 20 to show dec risk for falls. STG Duration achieved 12/05 School Commissioner Goal (LTG) Pt will improve FGA score to at least 22/30 to show dec fall risk. 01/09- LTG Duration achieved 02/10 HERNANDEZ Short Term Goal (STG) pt will improve HERNANDEZ score to at least 46/56 to show she is safe ambulator w/o AD and is less likely to fall. STG Duration achieved 49 12/05 Snf Goal (LTG) pt will improve HERNANDEZ score to at least 50/56 to show she is safe ambulator w/o AD outdoors and in the community. LTG Duration achieved to 52 sit to stand Short Term Goal (STG) Pt will be able to complete 5x sit to stand test. STG Duration achieved 12/05 Snf Goal (LTG) Pt will be able to do at least 9 sit to stands in 30 sec to show improved strength & balance. 01/09- LTG Duration achieved 02/10 Assessment Summary Assessment Pt cont to do well with progressive balance activties. She is advancing with activitytolerance but is still challenged by weights on legs . Physical Therapy Plan Frequency and Duration Frequency of Treatment 1-2x/Week Duration of Treatment 3 months Plan of Care Start Date 01/09/22 Plan of Care End Date 04/11/22 Next Visit Focus/Plan Next Note Type Treatment Note Next Visit Plan cont to advance strength and balance, work on strength for floor transfers as pt can get down well but does not have enough power fro up w/o UE support
--- NOTE | 2022-02-28 09:45 | PT.OTN ---
Current Diagnoses Unsteadiness on feet (02/28/22) Abnormal posture (02/28/22) Weakness (02/28/22) Physical Therapy Treatment Note PT-OP-A Visit Information Start: 10/29/21 07:41 Freq: Status: Active Protocol: Document 02/28/22 09:00 SP (Rec: 02/28/22 09:50 SP [id number]) Out-Patient Physical Therapy Visit Information Visit Information Visit Type Treatment Note Visit Note 12/03 FABIANA Emanuel assisted in ther ex instruction and physical balance support required during unevensurface obstacle course while being directly supervised and instructed by PIEDAD Ledesma. Visit Start Time 09:00 Visit Stop Time 09:45 Total Visit Minutes 45 Visit Number 30 Number of PERMASTONE MECHANIC Visits 1 PT-OP-B Current Condition Start: 10/29/21 07:41 Freq: Status: Active Protocol: Document 10/30/21 08:22 [facility] (Rec: 10/30/21 12:09 [facility] [id number]) Current Condition History of Current Condition Current Complaints falls, weakness History of Current Condition Pt reports since her stroke she has been weaker. Stroke was about 10 years ago and has done PT on/off which helps her but then she declines again. She had to hire someone for cleaning about 1 year ago d/t pt noting it just takes too long to do anything. Pt reports a couple years ago, she fell whenw alking with her friends so they won't let her walk with them anymore. 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 She reports she is falling more recently. She fell 3 times in the last year. One time, she fell walking backwards down the last few steps and miscounted how many steps so seh fell over. One time, she fell backing up when squeezing between a chair. Pt reports she has to be very careful walking backwards. won't walk around the block w/her because he likes to go his own pace. She was doing the strength and balance class at [facility]. Pt reports she developed a sore ( red area) on her R foot at bottom of 5th MT and she got custom insoles. She still has to wear a bandage on it to keep it from hurting. Pt reports R hip has been on/off giving her trouble but unsure what causes pain. Some days it doesn't hurt at all and sometimes it does off/on. Pt does have macular degeneration and that does liimt her too. Pt reports ever since COVID vaccine has to be care when getting up otherwise gets dizzy Treatment Goals Patient/Caregiver Goals Be able to walk again by herself, be able to do some things around the house (be able to make bed better, be able to snap lids of containers, cook more, some other clean up) PT-OP-C Subjective Start: 10/29/21 07:41 Freq: Status: Active Protocol: Document 02/28/22 09:00 SP (Rec: 02/28/22 09:50 SP [id number]) OP-PT Subjective Patient Comments Patient Comments Pt reports she does not remember how she felt after last treatment. She is focusing on walking more than her HEP. PT-OP-D Balance Start: 10/29/21 07:41 Freq: Status: Active Protocol: Document 01/09/22 09:52 [facility] (Rec: 01/09/22 10:34 [facility] [id number]) Balance Tests Hernandez Balance Test Hernandez Balance Test Score 52 PT-OP-E Functional Tests Start: 10/29/21 07:41 Freq: Status: Active Protocol: Document 02/10/22 09:13 [facility] (Rec: 02/10/22 09:50 [facility] [id number]) Functional Tests 30 Second Sit to Stand Test Score 9 Five Times Sit to Stand Test Score 16 sec Functional Gait Assessment Score 22 PT-OP-G Mobility & Gait Start: 10/29/21 07:41 Freq: Status: Active Protocol: Document 10/30/21 08:22 [facility] (Rec: 10/30/21 12:09 [facility] [id number]) OP Gait Assessment Comments Gait Comments Pt amb slowly w/dec push off and dec overall stability. PT-OP-J Posture/Palpation/Skin Start: 10/29/21 07:41 Freq: Status: Active Protocol: Document 10/30/21 08:22 [facility] (Rec: 10/30/21 15:52 [facility] [id number]) Posture Evaluation Comments Posture Comments inc kyphosis & fwd head PT-OP-M Strength Start: 10/29/21 07:41 Freq: Status: Active Protocol: Document 02/10/22 09:13 [facility] (Rec: 02/10/22 09:50 [facility] [id number]) Hip Strength Hip Manual Muscle Testing Right Flexion (L2) 3+ Fair+ External Rotation 4- Good- Internal Rotation 4- Good- Left Flexion (L2) 4 Good External Rotation 4- Good- Internal Rotation 4 Good Knee Strength Knee Manual Muscle Testing Right Flexion (S2) 4+ Good+ Extension (L3) 4+ Good+ Left Flexion (S2) 4+ Good+ Extension (L3) 4+ Good+ Ankle/Foot Strength Ankle and Foot Manual Muscle Testing Right Dorsiflexion (L4) 5 Normal Plantarflexion (S1) 5 Normal Left Dorsiflexion (L4) 5 Normal Plantarflexion (S1) 5 Normal Comments PF tested seated PT-OP-Q Treatments Start: 10/29/21 07:41 Freq: Status: Active Protocol: Document 02/28/22 09:00 SP (Rec: 02/28/22 09:50 SP [id number]) Cardio Equipment Recumbent Elliptical ([employer] [address]) Duration (Minutes) 7 Resistance 8 Seat Position See 9 Other UE & LE, 35 RPMs Therapeutic Exercises Standing Exercises Band Walk Standing Exercise Name 1. Lateral TB above knees > below knees- added toHEP Side bilateral Resistance TB 2 Equipment Used provided HO for home Reps/Minutes 15 ft x3 laps Comments cues for posture, leg alignment, added to HEP sit to stand Standing Exercise Name 1. arms in front 2. crossed arms 3. Level 2 TB above knees Side bilateral Resistance TB #2 HEP review w/ HO for home Equipment Used floor mat in front of chair, foam pad on chair incr height 20 Reps/Minutes x5 reps each Comments weight shift nose over toes, vc for controlled descent, knee alig Therapeutic Activity Therapeutic Activity on/off ground Name Supine to standing Reps/Minutes 1 Comments working on getting up/down from ground using lunge<> bear <> half kneel <> quadruped<> side sitting <> supine position techniques. Pt can utilized trek poles and one UE , to desend. SBA - S, asend min assist for half kneel into standing, support at lateral pelvis. Neuro Re-Education Treatment Balance Activities Tandem walk Surface firm Equipment 4# wt on LEs Comments 1. line walk 50ft x2 2. tandem walk occasional side LE contact centering recovery 50 ft x2 obstacle course Details fwd walk thru Equipment tpods & tpads and hurdles Reps/Duration 6 laps Comments -open space with pad CGA easy, more challenge with kaden, very difficult with pods (LOB x3 min A recovery so removed). PT-OP-T Assessment and Plan Start: 10/29/21 07:41 Freq: Status: Active Protocol: Document 02/28/22 09:00 SP (Rec: 02/28/22 09:50 SP [id number]) Physical Therapy Assessment Goals floor transfer Piano Accompanist Goal (LTG) Pt will be able to get up/down from the ground w/o having outside support. 02/10-can get down but not up 02/28/22: progressing, Min A to ascend from floor 1/2 kneel to bear stance on uneven surface. LTG Duration 04/11 progressing 02/28/22 activities Usp Goal (LTG) Pt will report feeling stronger so she is able to do more household tasks in a better manner (making the bed, cooking, etc) without excessive fatigue 12/05-reports the fatigue is slightly better. Has good and bad days 01/09-improved 02/10-reports doing more but still feels limited LTG Duration 04/11 Dynamic balance Impairment DGI 14/24; FGA 12/30 Short Term Goal (STG) Pt will improve DGI score to at least 20 to show dec risk for falls. STG Duration achieved 12/05 Usp Goal (LTG) Pt will improve FGA score to at least 22/30 to show dec fall risk. 01/09- LTG Duration achieved 02/10 HERNANDEZ Short Term Goal (STG) pt will improve HERNANDEZ score to at least 46/56 to show she is safe ambulator w/o AD and is less likely to fall. STG Duration achieved 49 12/05 Usp Goal (LTG) pt will improve HERNANDEZ score to at least 50/56 to show she is safe ambulator w/o AD outdoors and in the community. LTG Duration achieved to 52 sit to stand Short Term Goal (STG) Pt will be able to complete 5x sit to stand test. STG Duration achieved 12/05 Usp Goal (LTG) Pt will be able to do at least 9 sit to stands in 30 sec to show improved strength & balance. 01/09- LTG Duration achieved 02/10 Assessment Summary Assessment Pt improved weighted tandem gait with CGA, occasional self recovery Side contact step, improved stability w/ cues for posturing alignment over stance LE/core/ hip abd fac. Increased challenge use of hurdles during uneven surface stepping, same cues core/trunk posturing and slower pacing stepping to allow foot clearance. Pt required CG- Min A for safety through gait belt. Removed pods due to to difficult ankle and balance stepping over. Pt able to complete uneven STS and side stepping w/ resistance around thighs for LE hip abd strengthening with HOs to view form carryover at home progression to improved strength for balance recovery back to community gait longer distance with friends. Pt required Min A for trunk support to complete 1/2 kneel to standign using Trek pole for support over uneven surface. Physical Therapy Plan Frequency and Duration Frequency of Treatment 1-2x/Week Duration of Treatment 3 months Plan of Care Start Date 01/09/22 Plan of Care End Date 04/11/22 Therapeutic Interventions Therapeutic Interventions Aquatic Therapy,Balance Training,Gait Training,Home Exercise Program,Manual Therapy,Neuromuscular Re- education,Patient/Caregiver Education,Self-Care/Home Management,Soft Tissue Mobilization,Taping, Therapeutic Activities, Therapeutic Exercises Modalities Cold Pack/Ice Massage,Hot Packs Next Visit Focus/Plan Next Note Type Treatment Note Next Visit Plan REcheck added uneven resisted STS, band walk. POC: cont to advance strength and balance, work on strength for floor transfers as pt can get down well but does not have enough power for up w/o UE support
--- NOTE | 2022-03-04 09:00 | PT.OTN ---
Current Diagnoses Unsteadiness on feet (03/04/22) Abnormal posture (03/04/22) Weakness (03/04/22) Physical Therapy Treatment Note PT-OP-A Visit Information Start: 10/29/21 07:41 Freq: Status: Active Protocol: Document 03/04/22 08:19 SP (Rec: 03/04/22 09:03 SP [id number]) Out-Patient Physical Therapy Visit Information Visit Information Visit Type Treatment Note Visit Note 01/03 Visit Start Time 08:19 Visit Stop Time 09:00 Total Visit Minutes 41 Visit Number 31 Number of SANDWICH AND DRINK CART OPERATOR Visits 2 PT-OP-B Current Condition Start: 10/29/21 07:41 Freq: Status: Active Protocol: Document 10/30/21 08:22 [facility] (Rec: 10/30/21 12:09 [facility] [id number]) Current Condition History of Current Condition Current Complaints falls, weakness History of Current Condition Pt reports since her stroke she has been weaker. Stroke was about 10 years ago and has done PT on/off which helps her but then she declines again. She had to hire someone for cleaning about 1 year ago d/t pt noting it just takes too long to do anything. Pt reports a couple years ago, she fell whenw alking with her friends so they won't let her walk with them anymore. She has not been in the garden for 3 years because [facility] will bend down to pick up man a weed and fall over. She reports she is falling more recently. She fell 3 times in the last year. One time, she fell walking backwards down the last few steps and miscounted how many steps so seh fell over. One time, she fell backing up when squeezing between a chair. Pt reports she has to be very careful walking backwards. won't walk around the block w/her because he likes to go his own pace. She was doing the strength and balance class at [facility]. Pt reports she developed a sore ( red area) on her R foot at bottom of 5th MT and she got custom insoles. She still has to wear a bandage on it to keep it from hurting. Pt reports R hip has been on/off giving her trouble but unsure what causes pain. Some days it doesn't hurt at all and sometimes it does off/on. Pt does have macular degeneration and that does liimt her too. Pt reports ever since COVID vaccine has to be care when getting up otherwise gets dizzy Treatment Goals Patient/Caregiver Goals Be able to walk again by herself, be able to do some things around the house (be able to make bed better, be able to snap lids of containers, cook more, some other clean up) PT-OP-C Subjective Start: 10/29/21 07:41 Freq: Status: Active Protocol: Document 03/04/22 08:19 SP (Rec: 03/04/22 09:03 SP [id number]) OP-PT Subjective Patient Comments Patient Comments Pt states not doing much of exercises but is walking most days on [employer] [place]. PT-OP-D Balance Start: 10/29/21 07:41 Freq: Status: Active Protocol: Document 01/09/22 09:52 [facility] (Rec: 01/09/22 10:34 [facility] [id number]) Balance Tests Hernandez Balance Test Hernandez Balance Test Score 52 PT-OP-E Functional Tests Start: 10/29/21 07:41 Freq: Status: Active Protocol: Document 02/10/22 09:13 [facility] (Rec: 02/10/22 09:50 [facility] [id number]) Functional Tests 30 Second Sit to Stand Test Score 9 Five Times Sit to Stand Test Score 16 sec Functional Gait Assessment Score 22 PT-OP-G Mobility & Gait Start: 10/29/21 07:41 Freq: Status: Active Protocol: Document 10/30/21 08:22 [facility] (Rec: 10/30/21 12:09 [facility] [id number]) OP Gait Assessment Comments Gait Comments Pt amb slowly w/dec push off and dec overall stability. PT-OP-J Posture/Palpation/Skin Start: 10/29/21 07:41 Freq: Status: Active Protocol: Document 10/30/21 08:22 [facility] (Rec: 10/30/21 15:52 [facility] [id number]) Posture Evaluation Comments Posture Comments inc kyphosis & fwd head PT-OP-M Strength Start: 10/29/21 07:41 Freq: Status: Active Protocol: Document 02/10/22 09:13 [facility] (Rec: 02/10/22 09:50 [facility] [id number]) Hip Strength Hip Manual Muscle Testing Right Flexion (L2) 3+ Fair+ External Rotation 4- Good- Internal Rotation 4- Good- Left Flexion (L2) 4 Good External Rotation 4- Good- Internal Rotation 4 Good Knee Strength Knee Manual Muscle Testing Right Flexion (S2) 4+ Good+ Extension (L3) 4+ Good+ Left Flexion (S2) 4+ Good+ Extension (L3) 4+ Good+ Ankle/Foot Strength Ankle and Foot Manual Muscle Testing Right Dorsiflexion (L4) 5 Normal Plantarflexion (S1) 5 Normal Left Dorsiflexion (L4) 5 Normal Plantarflexion (S1) 5 Normal Comments PF tested seated PT-OP-Q Treatments Start: 10/29/21 07:41 Freq: Status: Active Protocol: Document 03/04/22 08:19 SP (Rec: 03/04/22 09:03 SP [id number]) Cardio Equipment Recumbent Elliptical ([employer]) Duration (Minutes) 7 Resistance 2>3 Seat Position 10 Other UEs/ LEs, 40 RPMs; Gym Equipment Shuttle Balance 2 Details red clips Comments fwd & side: WBOS & NBOS balanace, squats, wt shifts WBOS: HTs, EC CG-10%A Therapeutic Exercises Standing Exercises Band Walk Standing Exercise Name Reviewed HEP: lateral, in PT f /b Side bilateral Resistance TB 2 below knees>ankles Equipment Used rail PRN, close SBA Reps/Minutes 10 ft x3 laps Comments cues for posturing vier back to L when WB on RLE safety recovery sit to stand Standing Exercise Name 1. arms in front 2. crossed arms 3. Level 2 TB above knees Side bilateral Resistance TB #2 HEP review w/ HO for home Equipment Used blue foam under feet, mesh chair, needed Min A asc/desc Reps/Minutes x5 reps each (next foam chair, folded yoga mat under feet) Comments weight shift nose over toes, vc for controlled descent, knee alig Gait Training Gait Activity stairs Device Used light netbackup administrator touch rail PRN Distance/Duration 4 steps x4 laps Treatment Focus balance, LE strength Comments ascend/descend no HRs step to> step over step CGA, cued core and WBOS for stability. Uses 1 rail at home for stability and safety Neuro Re-Education Treatment Balance Activities bosu Details standing balance Equipment corner stairs rail Comments stationary, CG- 5%A 2 Details hurdles (6) Equipment 4# Comments 1. Hurdles [id number] 2. Hurdles side x2 B (Didn't get to 03/04 PT-OP-T Assessment and Plan Start: 10/29/21 07:41 Freq: Status: Active Protocol: Document 03/04/22 08:19 SP (Rec: 03/04/22 09:03 SP [id number]) Physical Therapy Assessment Goals floor transfer [facility] Goal (LTG) Pt will be able to get up/down from the ground w/o having outside support. 02/10-can get down but not up 02/28/22: progressing, Min A to ascend from floor 1/2 kneel to bear stance on uneven surface. LTG Duration 04/11 progressing 02/28/22 activities Tile Installer Goal (LTG) Pt will report feeling stronger so she is able to do more household tasks in a better manner (making the bed, cooking, etc) without excessive fatigue 12/05-reports the fatigue is slightly better. Has good and bad days 01/09-improved 02/10-reports doing more but still feels limited LTG Duration 04/11 Dynamic balance Impairment DGI ; FGA 07/25 Short Term Goal (STG) Pt will improve DGI score to at least 20 to show dec risk for falls. STG Duration achieved 12/05 [facility] Goal (LTG) Pt will improve FGA score to at least 22/30 to show dec fall risk. 01/09- LTG Duration achieved 02/10 HERNANDEZ Short Term Goal (STG) pt will improve HERNANDEZ score to at least 46/56 to show she is safe ambulator w/o AD and is less likely to fall. STG Duration achieved 49 12/05 [facility] Goal (LTG) pt will improve HERNANDEZ score to at least 50/56 to show she is safe ambulator w/o AD outdoors and in the community. LTG Duration achieved to 52 sit to stand Short Term Goal (STG) Pt will be able to complete 5x sit to stand test. STG Duration achieved 12/05 Tile Installer Goal (LTG) Pt will be able to do at least 9 sit to stands in 30 sec to show improved strength & balance. 01/09- LTG Duration achieved 02/10 Assessment Summary Assessment Pt ed continue resisted BTB for hip abd fac and band walk and corner balance HEP for progression at home, verbalized will try to incorporate more at home besides just walking. Cues for alignment over MARY, improved trunk awareness during shuttle balance less support self corrections for stability Physical Therapy Plan Frequency and Duration Frequency of Treatment 1-2x/Week Duration of Treatment 3 months Plan of Care Start Date 01/09/22 Plan of Care End Date 04/11/22 Therapeutic Interventions Therapeutic Interventions Aquatic Therapy,Balance Training,Gait Training,Home Exercise Program,Manual Therapy,Neuromuscular Re- education,Patient/Caregiver Education,Self-Care/Home Management,Soft Tissue Mobilization,Taping, Therapeutic Activities, Therapeutic Exercises Modalities Cold Pack/Ice Massage,Hot Packs Next Visit Focus/Plan Next Note Type Treatment Note Next Visit Plan REcheck added uneven resisted STS, band walk. POC: cont to advance strength and balance, work on strength for floor transfers as pt can get down well but does not have enough power for up w/o UE support
--- NOTE | 2022-03-14 09:48 | PT.OTN ---
Current Diagnoses Unsteadiness on feet (03/14/22) Abnormal posture (03/14/22) Weakness (03/14/22) Physical Therapy Treatment Note PT-OP-A Visit Information Start: 10/29/21 07:41 Freq: Status: Active Protocol: Document 03/14/22 09:05 LRN (Rec: 03/14/22 09:47 LRN [id number]) Out-Patient Physical Therapy Visit Information Visit Information Visit Type Treatment Note Visit Note 02/02 Visit Start Time 09:05 Visit Stop Time 09:43 Total Visit Minutes 38 Visit Number 32 PT-OP-B Current Condition Start: 10/29/21 07:41 Freq: Status: Active Protocol: Document 10/30/21 08:22 [facility] (Rec: 10/30/21 12:09 [facility] [id number]) Current Condition History of Current Condition Current Complaints falls, weakness History of Current Condition Pt reports since her stroke she has been weaker. Stroke was about 10 years ago and has done PT on/off which helps her but then she declines again. She had to hire someone for cleaning about 1 year ago d/t pt noting it just takes too long to do anything. Pt reports a couple years ago, she fell whenw alking with her friends so they won't let her walk with them anymore. She has not been in the garden for 3 years because se will bend down to bead picker a weed and fall over. She reports she is falling more recently. She fell 3 times in the last year. One time, she fell walking backwards down the last few steps and miscounted how many steps so seh fell over. One time, she fell backing up when squeezing between a chair. Pt reports she has to be very careful walking backwards. won't walk around the block w/her because he likes to go his own pace. She was doing the strength and balance class at [facility]. Pt reports she developed a sore ( red area) on her R foot at bottom of 5th MT and she got custom insoles. She still has to wear a bandage on it to keep it from hurting. Pt reports R hip has been on/off giving her trouble but unsure what causes pain. Some days it doesn't hurt at all and sometimes it does off/on. Pt does have macular degeneration and that does liimt her too. Pt reports ever since COVID vaccine has to be care when getting up otherwise gets dizzy Treatment Goals Patient/Caregiver Goals Be able to walk again by herself, be able to do some things around the house (be able to make bed better, be able to snap lids of containers, cook more, some other clean up) PT-OP-C Subjective Start: 10/29/21 07:41 Freq: Status: Active Protocol: Document 03/14/22 09:05 LRN (Rec: 03/14/22 09:47 [facility] [id number]) OP-PT Subjective Patient Comments Patient Comments Hasn't done much ex because having so much else going on. Feeling so much better and thinks this may be the end of coming in. Feels she can do much more because of more energy now. Spouse is alwasys concerned of her doing too much that might tire her out. Pt states she will talk to primary therapist about discharging. Pt having niece and great nephew visiting tomorrow and for 3-4 days. PT-OP-D Balance Start: 10/29/21 07:41 Freq: Status: Active Protocol: Document 01/09/22 09:52 [facility] (Rec: 01/09/22 10:34 [facility] [id number]) Balance Tests Schaefer Balance Test Schaefer Balance Test Score 52 PT-OP-E Functional Tests Start: 10/29/21 07:41 Freq: Status: Active Protocol: Document 02/10/22 09:13 [facility] (Rec: 02/10/22 09:50 [facility] [id number]) Functional Tests 30 Second Sit to Stand Test Score 9 Five Times Sit to Stand Test Score 16 sec Functional Gait Assessment Score 22 PT-OP-G Mobility & Gait Start: 10/29/21 07:41 Freq: Status: Active Protocol: Document 10/30/21 08:22 [facility] (Rec: 10/30/21 12:09 [facility] [id number]) OP Gait Assessment Comments Gait Comments Pt amb slowly w/dec push off and dec overall stability. PT-OP-J Posture/Palpation/Skin Start: 10/29/21 07:41 Freq: Status: Active Protocol: Document 10/30/21 08:22 [facility] (Rec: 10/30/21 15:52 [facility] [id number]) Posture Evaluation Comments Posture Comments inc kyphosis & fwd head PT-OP-M Strength Start: 10/29/21 07:41 Freq: Status: Active Protocol: Document 02/10/22 09:13 [facility] (Rec: 02/10/22 09:50 [facility] [id number]) Hip Strength Hip Manual Muscle Testing Right Flexion (L2) 3+ Fair+ External Rotation 4- Good- Internal Rotation 4- Good- Left Flexion (L2) 4 Good External Rotation 4- Good- Internal Rotation 4 Good Knee Strength Knee Manual Muscle Testing Right Flexion (S2) 4+ Good+ Extension (L3) 4+ Good+ Left Flexion (S2) 4+ Good+ Extension (L3) 4+ Good+ Ankle/Foot Strength Ankle and Foot Manual Muscle Testing Right Dorsiflexion (L4) 5 Normal Plantarflexion (S1) 5 Normal Left Dorsiflexion (L4) 5 Normal Plantarflexion (S1) 5 Normal Comments PF tested seated PT-OP-Q Treatments Start: 10/29/21 07:41 Freq: Status: Active Protocol: Document 03/14/22 09:05 [facility] (Rec: 03/14/22 09:47 [facility] [id number]) Cardio Equipment Recumbent Elliptical ([employer]) Duration (Minutes) 8 Resistance 2>3 Seat Position 10 Other UEs/ LEs, 30'2 RPMs; Gym Equipment Shuttle Balance 2 Details red clips Comments fwd & side: WBOS & NBOS balanace, squats, wt shifts WBOS: EO, EC Therapeutic Exercises Standing Exercises Band Walk Standing Exercise Name Reviewed HEP: lateral, in PT f /b Side bilateral Resistance TB 2 below knees>ankles Equipment Used rail PRN, close SBA Reps/Minutes 10 ft x3 laps Comments cues for posturing vier back to L when WB on RLE safety recovery sit to stand Standing Exercise Name 1. arms in front 2. crossed arms 3. Level 2 TB above knees Side bilateral Equipment Used blue foam under feet, mesh chair, needed Min A asc/desc Reps/Minutes 17x, 17 secs, 5x 2 reps each ( chair and foam under feet@ plinth) Comments weight shift nose over toes, vc for controlled descent, knee alig Neuro Re-Education Treatment Balance Activities bosu Details standing balance Equipment corner stairs rail Comments stationary, SBA PT-OP-T Assessment and Plan Start: 10/29/21 07:41 Freq: Status: Active Protocol: Document 03/14/22 09:05 LRN (Rec: 03/14/22 09:47 LRN [id number]) Physical Therapy Assessment Goals floor transfer Baseball Hand Sewer Goal (LTG) Pt will be able to get up/down from the ground w/o having outside support. 02/10-can get down but not up 02/28/22: progressing, Min A to ascend from floor 1/2 kneel to bear stance on uneven surface. LTG Duration 04/11 progressing 02/28/22 activities Baseball Hand Sewer Goal (LTG) Pt will report feeling stronger so she is able to do more household tasks in a better manner (making the bed, cooking, etc) without excessive fatigue 12/05-reports the fatigue is slightly better. Has good and bad days 01/09-improved 02/10-reports doing more but still feels limited 03/14-reports mopping the kitchen floor, and can make the bed, and cook better. LTG Duration 04/11 (03/14/22: MET GOAL) sit to stand Short Term Goal (STG) Pt will be able to complete 5x sit to stand test. 03/14-5TSTS in 17 secs. STG Duration achieved 12/05 Assisted Goal (LTG) Pt will be able to do at least 9 sit to stands in 30 sec to show improved strength & balance. 01/09-03/14-7 in 27 secs. Pt fatigued and not able to complete 30 secs. LTG Duration achieved 02/10 Assessment Summary Assessment Pt had several LOB episodes backward with sit<>stand after first bout, probably due to weakness. Pt has poor balance with EC training. Pt notes her balance is better first in AM Physical Therapy Plan Frequency and Duration Frequency of Treatment 1-2x/Week Duration of Treatment 3 months Plan of Care Start Date 01/09/22 Plan of Care End Date 04/11/22 Next Visit Focus/Plan Next Note Type Treatment Note Next Visit Plan Perform 30sec STS test to start before ex. Consider balance HEP before DC. POC: cont to advance strength and balance, work on strength for floor transfers as pt can get down well but does not have enough power for up w/o UE support
--- NOTE | 2022-03-25 09:00 | PT.OTN ---
Current Diagnoses Unsteadiness on feet (03/25/22) Abnormal posture (03/25/22) Weakness (03/25/22) Physical Therapy Treatment Note PT-OP-A Visit Information Start: 10/29/21 07:41 Freq: Status: Active Protocol: Document 03/25/22 08:19 SP (Rec: 03/25/22 09:04 SP [id number]) Out-Patient Physical Therapy Visit Information Visit Information Visit Type Treatment Note Visit Start Time 08:19 Visit Stop Time 09:00 Total Visit Minutes 41 Visit Number 33 Number of PENOLOGY PROFESSOR Visits 1 PT-OP-B Current Condition Start: 10/29/21 07:41 Freq: Status: Active Protocol: Document 10/30/21 08:22 [facility] (Rec: 10/30/21 12:09 [facility] [id number]) Current Condition History of Current Condition Current Complaints falls, weakness History of Current Condition Pt reports since her stroke she has been weaker. Stroke was about 10 years ago and has done PT on/off which helps her but then she declines again. She had to hire someone for cleaning about 1 year ago d/t pt noting it just takes too long to do anything. Pt reports a couple years ago, she fell whenw alking with her friends so they won't let her walk with them anymore. 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 She reports she is falling more recently. She fell 3 times in the last year. One time, she fell walking backwards down the last few steps and miscounted how many steps so seh fell over. One time, she fell backing up when squeezing between a chair. Pt reports she has to be very careful walking backwards. won't walk around the block w/her because he likes to go his own pace. She was doing the strength and balance class at [facility]. Pt reports she developed a sore ( red area) on her R foot at bottom of 5th MT and she got custom insoles. She still has to wear a bandage on it to keep it from hurting. Pt reports R hip has been on/off giving her trouble but unsure what causes pain. Some days it doesn't hurt at all and sometimes it does off/on. Pt does have macular degeneration and that does liimt her too. Pt reports ever since [facility] [place] has to be care when getting up otherwise gets dizzy Treatment Goals Patient/Caregiver Goals Be able to walk again by herself, be able to do some things around the house (be able to make bed better, be able to snap lids of containers, cook more, some other clean up) PT-OP-C Subjective Start: 10/29/21 07:41 Freq: Status: Active Protocol: Document 03/25/22 08:19 SP (Rec: 03/25/22 09:04 SP [id number]) OP-PT Subjective Patient Comments Patient Comments Pt stated has had company and hasn't performed much exercises but walking [place] little further using B trek poles slower to coordinate but feels has better balance with them. Pt reports having memory bouts with finding items at home and having discussion with wonder if should downsize? No AD upon arrival. PT-OP-D Balance Start: 10/29/21 07:41 Freq: Status: Active Protocol: Document 01/09/22 09:52 [facility] (Rec: 01/09/22 10:34 [facility] [id number]) Balance Tests Hernandez Balance Test Hernandez Balance Test Score 52 PT-OP-E Functional Tests Start: 10/29/21 07:41 Freq: Status: Active Protocol: Document 02/10/22 09:13 [facility] (Rec: 02/10/22 09:50 [facility] [id number]) Functional Tests 30 Second Sit to Stand Test Score 9 Five Times Sit to Stand Test Score 16 sec Functional Gait Assessment Score 22 PT-OP-G Mobility & Gait Start: 10/29/21 07:41 Freq: Status: Active Protocol: Document 10/30/21 08:22 [facility] (Rec: 10/30/21 12:09 [facility] [id number]) OP Gait Assessment Comments Gait Comments Pt amb slowly w/dec push off and dec overall stability. PT-OP-J Posture/Palpation/Skin Start: 10/29/21 07:41 Freq: Status: Active Protocol: Document 10/30/21 08:22 [facility] (Rec: 10/30/21 15:52 [facility] [id number]) Posture Evaluation Comments Posture Comments inc kyphosis & fwd head PT-OP-M Strength Start: 10/29/21 07:41 Freq: Status: Active Protocol: Document 02/10/22 09:13 [facility] (Rec: 02/10/22 09:50 [facility] [id number]) Hip Strength Hip Manual Muscle Testing Right Flexion (L2) 3+ Fair+ External Rotation 4- Good- Internal Rotation 4- Good- Left Flexion (L2) 4 Good External Rotation 4- Good- Internal Rotation 4 Good Knee Strength Knee Manual Muscle Testing Right Flexion (S2) 4+ Good+ Extension (L3) 4+ Good+ Left Flexion (S2) 4+ Good+ Extension (L3) 4+ Good+ Ankle/Foot Strength Ankle and Foot Manual Muscle Testing Right Dorsiflexion (L4) 5 Normal Plantarflexion (S1) 5 Normal Left Dorsiflexion (L4) 5 Normal Plantarflexion (S1) 5 Normal Comments PF tested seated PT-OP-Q Treatments Start: 10/29/21 07:41 Freq: Status: Active Protocol: Document 03/25/22 08:19 SP (Rec: 03/25/22 09:04 SP [id number]) Cardio Equipment Recumbent Elliptical ([employer]) Duration (Minutes) 8 Resistance 3 Seat Position 10 Other UEs/ LEs, 30'2 RPMs, 373 step Gym Equipment Shuttle Balance 2 Details red clips Comments fwd & side: WBOS & NBOS balance, squats, wt shifts CG- 15%A WBOS: EC 6 sec Therapeutic Exercises Standing Exercises sit to stand Standing Exercise Name 1. arms in front 2. crossed arms 3. Level 2 TB above knees Side bilateral Equipment Used blue foam, black table 20 Reps/Minutes 15s, 14s- 5x 2 reps each ( under of mesh) Comments weight shift nose over toes, vc for controlled descent, knee alig Neuro Re-Education Treatment Balance Activities bosu Details standing balance Equipment corner stairs rail contact Comments stationary, SBA, 2-3 s without UE contact head turns Details vert/hor Equipment 4# wt on legs Reps/Duration 80ftx2 laps hallway Comments walking at fast pace *cued center body to L during R HT, tends to vier R and LLE scuffs floor, improved with cues 2 Details hurdles (2) Equipment 4# leg wts Comments 1. Hurdles fwdx4 2. Hurdles side x2 B (Didn't get to 8/30 *cued soft heel strike and close to kaden before step. PT-OP-T Assessment and Plan Start: 10/29/21 07:41 Freq: Status: Active Protocol: Document 03/25/22 08:19 SP (Rec: 03/25/22 09:04 SP [id number]) Physical Therapy Assessment Goals floor transfer National Park Ranger Goal (LTG) Pt will be able to get up/down from the ground w/o having outside support. 02/10-can get down but not up 02/28/22: progressing, Min A to ascend from floor 1/2 kneel to bear stance on uneven surface. LTG Duration 04/11 progressing 02/28/22 activities National Park Ranger Goal (LTG) Pt will report feeling stronger so she is able to do more household tasks in a better manner (making the bed, cooking, etc) without excessive fatigue 12/05-reports the fatigue is slightly better. Has good and bad days 01/09-improved 02/10-reports doing more but still feels limited 03/14-reports mopping the kitchen floor, and can make the bed, and cook better. LTG Duration 04/11 (03/14/22: MET GOAL) Dynamic balance Impairment DGI 24; FGA 07/25 Short Term Goal (STG) Pt will improve DGI score to at least 20 to show dec risk for falls. STG Duration achieved 12/05 Nursing Home Goal (LTG) Pt will improve FGA score to at least 22/30 to show dec fall risk. 01/09- LTG Duration achieved 02/10 HERNANDEZ Short Term Goal (STG) pt will improve HERNANDEZ score to at least 46/56 to show she is safe ambulator w/o AD and is less likely to fall. STG Duration achieved 49 12/05 Nursing Home Goal (LTG) pt will improve HERNANDEZ score to at least 50/56 to show she is safe ambulator w/o AD outdoors and in the community. LTG Duration achieved to 52 sit to stand Short Term Goal (STG) Pt will be able to complete 5x sit to stand test. 03/14-5TSTS in 17 secs. 03/25- 5TSTS in 15 secs. STG Duration achieved 12/05 National Park Ranger Goal (LTG) Pt will be able to do at least 9 sit to stands in 30 sec to show improved strength & balance. 01/09-03/14- in 27 secs. Pt fatigued and not able to complete 30 secs. 03/25- reps in 30sec LTG Duration achieved 02/10 Assessment Summary Assessment Pt improved upright posturing and self awareness of = BLE WB to allow COG over MARY on shuttle balance, kaden stepping and dynamic head turns gait. Pt more even WB and centered leaving today. Physical Therapy Plan Frequency and Duration Frequency of Treatment 1-2x/Week Duration of Treatment 3 months Plan of Care Start Date 01/09/22 Plan of Care End Date 04/11/22 Therapeutic Interventions Therapeutic Interventions Aquatic Therapy,Balance Training,Gait Training,Home Exercise Program,Manual Therapy,Neuromuscular Re- education,Patient/Caregiver Education,Self-Care/Home Management,Soft Tissue Mobilization,Taping, Therapeutic Activities, Therapeutic Exercises Modalities Cold Pack/Ice Massage,Hot Packs Next Visit Focus/Plan Next Note Type Treatment Note Next Visit Plan Perform 30sec STS test to start before ex. Consider balance HEP before DC. POC: cont to advance strength and balance, work on strength for floor transfers as pt can get down well but does not have enough power for up w/o UE support
--- NOTE | 2022-04-01 12:16 | PT.OTN ---
Current Diagnoses Unsteadiness on feet (04/01/22) Abnormal posture (04/01/22) Weakness (04/01/22) Physical Therapy Treatment Note PT-OP-A Visit Information Start: 10/29/21 07:41 Freq: Status: Active Protocol: Document 04/01/22 09:50 [facility] (Rec: 04/01/22 12:16 [facility] [id number]) Out-Patient Physical Therapy Visit Information Visit Information Visit Type Discharge Summary Visit Start Time 09:51 Visit Stop Time 10:29 Total Visit Minutes 38 Visit Number 34 Number of CHEMICAL DEPENDENCY NURSE Visits 0 PT-OP-B Current Condition Start: 10/29/21 07:41 Freq: Status: Active Protocol: Document 10/30/21 08:22 [facility] (Rec: 10/30/21 12:09 [facility] [id number]) Current Condition History of Current Condition Current Complaints falls, weakness History of Current Condition Pt reports since her stroke she has been weaker. Stroke was about 10 years ago and has done PT on/off which helps her but then she declines again. She had to hire someone for cleaning about 1 year ago d/t pt noting it just takes too long to do anything. Pt reports a couple years ago, she fell whenw alking with her friends so they won't let her walk with them anymore. 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 She reports she is falling more recently. She fell 3 times in the last year. One time, she fell walking backwards down the last few steps and miscounted how many steps so seh fell over. One time, she fell backing up when squeezing between a chair. Pt reports she has to be very careful walking backwards. won't walk around the block w/her because he likes to go his own pace. She was doing the strength and balance class at [facility]. Pt reports she developed a sore ( red area) on her R foot at bottom of 5th MT and she got custom insoles. She still has to wear a bandage on it to keep it from hurting. Pt reports R hip has been on/off giving her trouble but unsure what causes pain. Some days it doesn't hurt at all and sometimes it does off/on. Pt does have macular degeneration and that does liimt her too. Pt reports ever since COVID vaccine has to be care when getting up otherwise gets dizzy Treatment Goals Patient/Caregiver Goals Be able to walk again by herself, be able to do some things around the house (be able to make bed better, be able to snap lids of containers, cook more, some other clean up) PT-OP-C Subjective Start: 10/29/21 07:41 Freq: Status: Active Protocol: Document 04/01/22 09:50 [facility] (Rec: 04/01/22 12:16 [facility] [id number]) OP-PT Subjective Patient Comments Patient Comments Pt reprots walking and compliance w/HEP PT-OP-D Balance Start: 10/29/21 07:41 Freq: Status: Active Protocol: Document 01/09/22 09:52 [facility] (Rec: 01/09/22 10:34 [id number] Balance Tests Hernandez Balance Test Hernandez Balance Test Score 52 PT-OP-E Functional Tests Start: 10/29/21 07:41 Freq: Status: Active Protocol: Document 04/01/22 09:50 [facility] (Rec: 04/01/22 12:16 [facility] [id number]) Functional Tests 30 Second Sit to Stand Test Score 8 Five Times Sit to Stand Test Score 16 sec PT-OP-G Mobility & Gait Start: 10/29/21 07:41 Freq: Status: Active Protocol: Document 10/30/21 08:22 [facility] (Rec: 10/30/21 12:09 [facility] [id number]) OP Gait Assessment Comments Gait Comments Pt amb slowly w/dec push off and dec overall stability. PT-OP-J Posture/Palpation/Skin Start: 10/29/21 07:41 Freq: Status: Active Protocol: Document 10/30/21 08:22 [facility] (Rec: 10/30/21 15:52 [facility] [id number]) Posture Evaluation Comments Posture Comments inc kyphosis & fwd head PT-OP-M Strength Start: 10/29/21 07:41 Freq: Status: Active Protocol: Document 02/10/22 09:13 [facility] (Rec: 02/10/22 09:50 [facility] [id number]) Hip Strength Hip Manual Muscle Testing Right Flexion (L2) 3+ Fair+ External Rotation 4- Good- Internal Rotation 4- Good- Left Flexion (L2) 4 Good External Rotation 4- Good- Internal Rotation 4 Good Knee Strength Knee Manual Muscle Testing Right Flexion (S2) 4+ Good+ Extension (L3) 4+ Good+ Left Flexion (S2) 4+ Good+ Extension (L3) 4+ Good+ Ankle/Foot Strength Ankle and Foot Manual Muscle Testing Right Dorsiflexion (L4) 5 Normal Plantarflexion (S1) 5 Normal Left Dorsiflexion (L4) 5 Normal Plantarflexion (S1) 5 Normal Comments PF tested seated PT-OP-Q Treatments Start: 10/29/21 07:41 Freq: Status: Active Protocol: Document 04/01/22 09:50 [facility] (Rec: 04/01/22 12:16 [facility] [id number]) Gym Equipment Shuttle Balance 2 Details red clips Comments fwd/side: WBOS & NBOS head turns as able Therapeutic Exercises Standing Exercises Band Walk Standing Exercise Name Reviewed HEP: lateral, in PT f /b Side bilateral Resistance TB 2 at ankles Equipment Used rail PRN Reps/Minutes 20ft Comments cues for posture and foot fwd sit to stand Standing Exercise Name no hands Side bilateral Equipment Used chair Reps/Minutes 2x30s hip ext Standing Exercise Name hip ext Side bilateral Equipment Used lvl 2 TB Reps/Minutes x20 ea Comments cues for posture hip abd Side bilateral Equipment Used lvl 2 Reps/Minutes 10 ea Neuro Re-Education Treatment Balance Activities 1 Details SLS & tandem trials B by rail Self-Care/Home Management Treatment Education Patient Education Safety Other Education discussed safety w/exercises like using counter duirng exercises at home to avoid falls, edu to sit in chair by counter to tie bands, [facility] good enought o walk and to cont to slowly progress walk distance w/ PT-OP-T Assessment and Plan Start: 10/29/21 07:41 Freq: Status: Active Protocol: Document 04/01/22 09:50 [facility] (Rec: 04/01/22 12:16 [facility] [id number]) Physical Therapy Assessment Goals floor transfer [facility] Goal (LTG) Pt will be able to get up/down from the ground w/o having outside support. 02/10-can get down but not up 02/28/22: progressing, Min A to ascend from floor 1/2 kneel to bear stance on uneven surface. LTG Duration still unable to get up but can get down activities [facility] Goal (LTG) Pt will report feeling stronger so she is able to do more household tasks in a better manner (making the bed, cooking, etc) without excessive fatigue 12/05-reports the fatigue is slightly better. Has good and bad days 01/09-improved 02/10-reports doing more but still feels limited 03/14-reports mopping the kitchen floor, and can make the bed, and cook better. LTG Duration 04/11 (03/14/22: MET GOAL) Dynamic balance Impairment DGI ; FGA 07/25 Short Term Goal (STG) Pt will improve DGI score to at least 20 to show dec risk for falls. STG Duration achieved 12/05 Business Office Assistant Goal (LTG) Pt will improve FGA score to at least 22/30 to show dec fall risk. 01/09- LTG Duration achieved 02/10 HERNANDEZ Short Term Goal (STG) pt will improve HERNANDEZ score to at least 46/56 to show she is safe ambulator w/o AD and is less likely to fall. STG Duration achieved 49 12/05 Business Office Assistant Goal (LTG) pt will improve HERNANDEZ score to at least 50/56 to show she is safe ambulator w/o AD outdoors and in the community. LTG Duration achieved to 52 sit to stand Short Term Goal (STG) Pt will be able to complete 5x sit to stand test. 03/14-5TSTS in 17 secs. 03/25- 5TSTS in 15 secs. STG Duration achieved 12/05 [facility] Goal (LTG) Pt will be able to do at least 9 sit to stands in 30 sec to show improved strength & balance. 01/09-03/14-7 in 27 secs. Pt fatigued and not able to complete 30 secs. 830- reps in 30sec LTG Duration achieved 02/10 Assessment Summary Assessment Pt did well with exercises w/ min cues. She was reminded of safety with exercsies but is overall indep w/ HEP at this time. Pt has made excellent progress w/PT and has met most goals. She is still limited in ability to get up f rom gorund but has strengthening exercises to work on this. She is DC to HEP at this [facility]. Physical Therapy Plan Discharge Physical Therapy Discharge Reasons Goals Met Discharge Comments plateau
== END 2022-04-03 09:27 ==
LOC: PHYS 09:45
PROVIDERS: Family Provider Family Medicine; PCP Family Medicine; Referring Provider Family Medicine; Visit Provider Family Medicine
DX: R26.81 Unsteadiness on feet (principal); R53.1 Weakness; R29.3 Abnormal posture
CPT/HCPCS: 97110; 97112; 97116; 97162; 97530; 97535

== ENCOUNTER → 2023-07-30 07:53 | Outpatient (CLI) | payer MEDICARE, SELFPAY ==
--- NOTE | 2023-07-30 | DI.ECHO.S_ITS ---
[facility]---------+ [facility] +---------+ : : [address] : : : : [id number] : : : : Phone: [phone]+ Echocardiogram Report + + :Name: GORDO ALFRED Study Date: 07/30/2023 Height: 67.5 in: :[facility] ReadingLocation: Weight: 125 lb : : Gender: Female BSA: 1.7 m2 : :: 1935 Age: 87 yrs BP: 141/84 mmHg: :Reason For Study: MITRAL INSUFFICIENCY : :Ordering Physician: RAPHAEL, : :GORDO Performed By: Cass Luque : :Referring: GORDO LIM : + + Interpretation Summary The left ventricle is normal in size and wall thickness. The ejection fraction is estimated to be 55-60%. There are no focal wall motion abnormalities. Diastolic parameters suggest a relaxation abnormality of the left ventricle, consistent with probable normal filling pressures. The right ventricle is normal in size and function. The right ventricular systolic pressure is estimated to be at least 31 mmHg based on an estimated right atrial pressure of 3 mm Hg. The left atrial size is normal. Right atrial size is normal. There is mild mitral regurgitation. The aortic root is normal size. There is a small pericardial effusion noted. Procedure: A two-dimensional transthoracic echocardiogram with color flow and Doppler was performed. The study quality was technically adequate. Comparison is made with the echocardiogram of 05/29/2020. The patient had a bundle branch block rhythm during the exam. The heart rate ranged between 75- 84 bpm during the study. Left Ventricle: The left ventricle is normal in size and wall thickness. The ejection fraction is estimated to be 55-60%. There are no focal wall motion abnormalities. Diastolic parameters suggest a relaxation abnormality of the left ventricle, consistent with probable normal filling pressures. Right Ventricle: The right ventricle is normal in size and function. Atria: The left atrial size is normal. Right atrial size is normal. There is no Doppler evidence for an interatrial shunt. Mitral Valve: The mitral valve is normal in structure and function. There is mild mitral regurgitation. Aortic Valve: The aortic valve is trileaflet. The aortic valve is mildly calcified. There is discrete nodular thickening of the non- coronary cusp. There is no aortic valve stenosis. There is mild aortic regurgitation. Tricuspid Valve: The tricuspid valve is normal in structure and function. There is mild tricuspid regurgitation. The right ventricular systolic pressure is estimated to be at least 31 mmHg based on an estimated right atrial pressure of 3 mm Hg. Pulmonic Valve: The pulmonic valve leaflets are thin and pliable; valve motion is normal. There is mild pulmonic regurgitation. Great Vessels: The aortic root is normal size. The dimensions of the ascending aorta are normal. The IVC is of normal diameter and collapses greater than 50% with a sniff. This suggests a low right atrial pressure of 3 mm Hg. Pericardium/ Pleura There is a small pericardial effusion noted. There are no echocardiographic indications of cardiac tamponade. There is no pleural effusion. MMode/2D Measurements & Calculations LVIDd: 4.0 cm LVOT diam: 2.0 cm LVIDs: 3.0 cm Ao root diam: 3.1 cm FS: 25.0 % asc Aorta Diam: 3.1 cm IVSd: 0.97 cm Ao Arch Diam (Prox Trans): 2.7 cm LVPWd: 1.1 cm LV calixto. diameter/BSA (cm/m^2): 2.4 LV sys. diameter/BSA (cm/m^2): 1.8 LA A2 area: 13.3 cm2 RA long axis: 3.4 cm LA A4 area: 8.8 cm2 RA area: 9.1 cm2 LA length (vol): 2.5 cm RA vol: 20.8 ml LA vol: 40.4 ml RA : 12.5 ml/m2 LA vol index: 24.3 ml/m2 IVC diam: 1.4 cm RVD1 (basal): 2.9 cm RVD2 (mid): 2.3 cm TAPSE: 2.0 cm Doppler Measurements & Calculations Ao V2 max: 117.5 cm/sec LVOT Max Tyree: 77.0 cm/sec Ao V2 mean: 94.6 cm/sec LV V1 max P.4 mmHg Ao max P.5 mmHg LV V1 VTI: 13.9 cm Ao mean P.7 mmHg TIFFANY(I,D): 1.7 cm2 Ao V2 VTI: 25.6 cm TIFFANY(V,D): 2.1 cm2 sev ratio: 0.54 TIFFANY indexed to BSA (cm^2/m^2): 1.0 MV E max tyree: 40.9 cm/sec TR max tyree: 262.0 cm/sec MV A max tyree: 95.4 cm/sec TR max P.5 mmHg MV E/A: 0.43 PA V2 max: 80.5 cm/sec Med Peak E' Tyree: 3.6 cm/sec PA V2 mean: 58.9 cm/sec E/E' med: 11.4 PA mean P.6 mmHg Lat Peak E' Tyree: 11.4 cm/sec PA pr(Accel): 39.6 mmHg E/E' lat: 3.6 E/e' average: 7.5 MV dec time: 0.25 sec SV(LVOT): 43.9 ml Reading Physician:12:18 PM
== END ==
LOC: ECHO 07:54
PROVIDERS: Family Provider Family Medicine; PCP Family Medicine; Referring Provider Family Medicine; Visit Provider Family Medicine
DX: I08.3 Combined rheumatic disorders of mitral, aortic and tricuspid valves (principal); I31.39 Other pericardial effusion (noninflammatory)
CPT/HCPCS: 93306

== ENCOUNTER → 2023-08-28 09:15 | Outpatient (CLI) | payer MEDICARE, SELFPAY ==
--- NOTE | 2023-08-28 | DI.US.S_ITS ---
PROCEDURE: US BREAST LT LIMITED COMPARISON: None. INDICATIONS: LEFT BREAST SWELLING AND PAIN FINDINGS: IMPRESSION: Dictated by: Shanta David M.D. on 08/28/2023 at 16:38 Approved by: Shanta David M.D. on 08/28/2023 at 16:40
--- NOTE | 2023-08-28 | DI.MG.S_ITS ---
BILATERAL DIGITAL DIAGNOSTIC MAMMOGRAM 3D/2D: 08/28/2023 CLINICAL: Left breast pain. Comparison is made to exams dated: 03/01/2015 mammogram, 08/28/2011 mammogram, and 08/27/2010 mammogram - [facility]. Both breasts are heterogeneously dense, which may obscure small masses (category c / 51-75% glandular tissue). A BB marker was placed in the area of clinical concern in the left breast, and no mammographic abnormality is identified. No significant masses, calcifications, or other findings are seen in either breast. IMPRESSION: INCOMPLETE: NEEDS ADDITIONAL IMAGING EVALUATION No mammographic evidence of malignancy. Recommend further evaluation with targeted left breast ultrasound, which will immediately follow this exam. This exam was interpreted at Station ID: [id number]. NOTE: For mammograms, a report in lay terms will be sent to the patient. Approximately 15% of breast malignancies will not be visualized mammographically. In the management of a palpable breast mass, a negative mammogram must not discourage biopsy of a clinically suspicious lesion. Electronically Signed By: Shanta David M.D., PH.D eb/:08/28/2023 16:21:38 ACR BI-RADS Category 0: Incomplete [id number]
--- NOTE | 2023-08-28 10:51 | DI.US.S_ITS ---
Patient Name: GORDO ALFRED date: 1935 Sex: F Attending Physician: Dawn Indications: Date: 08/28/2023 16:40 At the request of: GORDOTerese LIM Procedure: US breast LT limited LIMITED ULTRASOUND OF LEFT BREAST: 08/28/2023 CLINICAL: Focal left breast pain. Comparison is made to exams dated: 08/28/2023 mammogram, 03/01/2015 mammogram, 08/28/2011 mammogram, and 08/27/2010 mammogram - [facility]. Color flow and real-time ultrasound of the left breast 10 o'clock region were performed. No sonographic abnormality is seen in the area of clinical concern in the left breast at 3 o'clock, 4 cm from the nipple. IMPRESSION: NEGATIVE No sonographic abnormality is seen in the area of clinical concern. No mammographic or targeted sonographic evidence of malignancy. A 1 year screening mammogram is recommended. Clinical follow-up is also recommended, and further management of palpable abnormalities or other focal signs or symptoms should be based on the results of clinical evaluation. If palpable abnormality or other concerning symptom persists or progresses, further clinical evaluation should be considered. Findings and recommendations were conveyed to the patient during today's evaluation. This exam was interpreted at Station ID: [id number]. Electronically Signed By: Shanta David M.D., PH.D eb/:08/28/2023 16:40:05 letter sent: Clinical Evaluation Continued Report - Page 2 of 2 Patient Name: GORDO ALFRED date: 1935 Sex: F Attending Physician: Dawn Indications: Date: 08/28/2023 16:40 At the request of: GORDOTerese LIM Procedure: US breast LT limited Ultrasound BI-RADS: 1 Negative
== END ==
PROVIDERS: Family Provider Family Medicine; PCP Family Medicine; Referring Provider Family Medicine; Visit Provider Family Medicine
DX: R92.2 Inconclusive mammogram (principal); N64.4 Mastodynia; R92.333 Mammographic heterogeneous density, bilateral breasts
CPT/HCPCS: 76642; 77066; G0279

== ENCOUNTER → 2023-12-23 10:33 | Outpatient (CLI) | payer MEDICARE, SELFPAY ==
--- NOTE | 2023-12-23 10:36 | DI.RAD.S_ITS ---
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 [facility], CR, DEXA AXIAL SKELETON, 10/21/2017, 10:09. FINDINGS: Lumbar Spine: Bone mineral density 0.797 g/cm2, T score -2.3. Left Hip: Bone mineral density 0.813 g/cm2, T score -1.1. Left Femoral Neck: Bone mineral density 0.697 g/cm2, T score -1.4. Right Hip: Bone mineral density 0.787 g/cm2, T score -1.3. Right Femoral Neck: Bone mineral density 0.639 g/cm2, T score -1.9. Fracture Risk Calculation (when applicable): 10-year fracture risk of a major osteoporotic fracture 22% and of a hip fracture 15%. (T score greater or equal to -1.0 to: NORMAL) (T score from -1.1 to -2.4: OSTEOPENIA) (T score less than or equal to -2.5: OSTEOPOROSIS) IMPRESSION: Osteopenia. Follow-up guidelines as follows: Osteoporosis: Consider a repeat DEXA and Vertebral Fracture Assessment (VFA) exam in 2 years or sooner if medically necessary, to reassess this patient's status. Osteopenia: Consider a repeat DEXA in 2-3 years to reassess this patient's status, or if there is a new clinical indication. Normal: Consider a repeat DEXA in 5 years or sooner, or if there is a new clinical indication. All treatment decisions require clinical judgment and consideration of individual patient factors, including patient preferences, comorbidities, previous drug use, risk factors not captured in the FRAX model (e.g., frailty, falls, vitamin D deficiency, increased bone turnover, interval significant decline in bone density ) and possible under- or over-estimation of fracture risk by FRAX. In addition, the NOF Guide recommends that FDA-approved medical therapies be considered in postmenopausal women and men age >= 50 years with a: * Hip or vertebral (clinical or morphometric) fracture * T-score of <=-2.5 at the spine or hip * Ten-year fracture probability by FRAX of >= 3% for hip fracture or >=20% for major osteoporotic fracture. People with diagnosed cases of osteoporosis or at high risk for fracture should have regular bone mineral density tests. For patients eligible for Medicare, routine testing is allowed once every 2 years. The testing frequency can be increased to one year for patients who have rapidly progressing disease, those who are receiving or discontinuing medical therapy to restore bone mass, or have additional risk factors. Dictated by: Nicholas Bell M.D. on 12/23/2023 at 21:33 Approved by: Nicholas Bell M.D. on 12/23/2023 at 21:35
== END ==
PROVIDERS: Family Provider Family Medicine; PCP Family Medicine; Referring Provider Family Medicine; Visit Provider Family Medicine
DX: M81.0 Age-related osteoporosis without current pathological fracture (principal); E78.00 Pure hypercholesterolemia, unspecified; E03.9 Hypothyroidism, unspecified; I34.0 Nonrheumatic mitral (valve) insufficiency; D70.9 Neutropenia, unspecified; E53.8 Deficiency of other specified B group vitamins
CPT/HCPCS: 77080

== ENCOUNTER 2024-07-27 16:59 | Inpatient (IN) | payer MEDICARE, SELFPAY ==
--- NOTE | 2024-07-27 16:59 | DI.CT.S_ITS ---
PROCEDURE: CT HEAD/BRAIN WO CON INDICATIONS: Slurring words TECHNIQUE: Noncontrast 4.5 mm thick angled axial sections acquired from the foramen magnum to the vertex, with coronal and sagittal reformats. For radiation dose reduction, the following was used: automated exposure control, adjustment of mA and/or kV according to patient size. COMPARISON: [facility], CT, CT HEAD/BRAIN WO CON, 07/10/2018, 11:41. FINDINGS: Image quality: Diagnostic CSF spaces: Basal cisterns are patent. Lateral ventricles are symmetric. Volume: Vascular calcifications. Periventricular white matter disease is commonly seen with chronic microangiopathy. Volume loss is present. These findings are moderate Brain: No intracranial hemorrhage. Mauricio-white differentiation is grossly maintained. Craniofacial structures: No displaced fracture. Sinuses are clear. Orbits are intact. IMPRESSION: No acute intracranial pathology. If there is high concern for infarct, consider MRI. Dictated by: Mirza Kraus M.D. on 07/27/2024 at 16:33 Approved by: Mirza Kraus M.D. on 07/27/2024 at 16:35
[2024-07-27 17:00] VITALS: BP 131/60; PULSE 102; RESP 20; TEMP 36.7; O2SAT 100; BMI 22.4
--- NOTE | 2024-07-27 17:10 | ED.NEUROSD ---
HPI - Neuro Symptoms/Deficit General Chief Complaint: Neuro Symptoms/Deficit Stated Complaint: Code Stroke Time Seen by Provider: 07/27/24 16:59 Source: patient, family and EMS Mode of arrival: EMS History of Present Illness HPI Narrative: Patient was an 88-year-old female. Not on anticoagulation. Has a history of hypothyroid and high cholesterol. Has had a TIA in the past who is here for evaluation of worsening problems with speaking and confusion and balance issues. Patient's who came shortly after the patient arrived by EMS states that the patient woke up this morning at her baseline state of health. At approximately 0800 hours he noticed that she was becoming somewhat confused. She was having trouble walking around today but was able to walk but needed to hold onto someone. He stated the patient seemed to be slurring her words and having problems finding words. Patient arrived the emergency department shortly after 1700 hours. He stated that he contacted the paramedics because her symptoms actually worsened throughout the day. She arrives greater than 4-1/2 hours after her last known normal. Given her presenting symptoms the patient is unable to provide any HPI. Review of systems is provided by the and general utility machine operator. On Anticoagulants: No Related Data Home Medications Medication Instructions Recorded Confirmed aspirin 325 mg tablet 325 mg PO QDAY ##0 10/20/07 Ferrous Sulfate (Feosol) 325 mg PO Q DAY ##0 04/11/08 MULTIVITAMIN (Multivitamin 1 cap PO EVERY DAY ##0 04/11/08 -) [FLAXSEED OIL] 1 cap PO QDAY ##0 04/11/08 calcium carbonate 500 mg-vitamin 1 tab PO BID ##0 04/11/08 D3 5 mcg (200 unit) tablet (Oyster Shell Calcium-Vitamin D3) simvastatin 20 mg tablet (Zocor) 30 mg PO HS ##0 04/11/08 atorvastatin 20 mg tablet (Lipitor) 20 mg PO QDAY ##0 08/20/16 lutein 25 mg-zeaxanthin 5 mg 1 ea PO ##0 08/20/16 capsule levothyroxine 112 mcg tablet 112 mcg PO QDAY ##0 01/09/17 (Levoxyl) Previous Rx's Medication Instructions Recorded amoxicillin 875 mg-potassium 875 mg PO BID #14 tabs 01/09/17 clavulanate 125 mg tablet (Augmentin) Allergies Allergy/AdvReac Type Severity Reaction Status Date / Time iodine [IODINE] Allergy Mild Hives Verified 07/27/24 17:35 formaldehyde [FORMALDEHYDE] Allergy Unknown Verified 07/27/24 17:35 Review of Systems Review of Systems Narrative: See HPI ROS Unobtainable: Unobtainable due to medical condition Hematologic/Lymphatic On Anticoagulants: No Patient History Medical History Patent foramen ovale Social History Smoking Status: Never smoker Smoking Status: Never smoker Exam Initial Vital Signs Initial Vital Signs: Vital Signs Temperature 98.1 F 07/27/24 17:00 Pulse Rate 102 H 07/27/24 17:00 Respiratory Rate 20 07/27/24 17:00 Blood Pressure 131/60 07/27/24 17:00 Pulse Oximetry 100 07/27/24 17:00 Oxygen Delivery Method Room Air 07/27/24 17:00 Const General: cooperative, comfortable and No ill appearing HENMT Head: normal to inspection and normocephalic Face and sinus: normal facial exam Resp Effort & Inspection: normal respiratory effort Auscultation: clear to auscultation bilaterally Cardio Rate: tachycardic Rhythm: regular rhythm GI Inspection: normal to inspection Skin General: no rashes or lesions noted Neuro General: patient alert, patient awake and moves all extremities Extrem General: capillary refill normal Scores NIH Stroke Scale Level of Conciousness: Alert, keenly responsive Ask month/age: Answers neither question correctly, aphasic, stuporous, coma Open/close eyes, close hand: Performs both tasks correctly Best gaze horizontal: Normal Visual north: Partial hemianopia Facial palsy: Minor paralysis, flattened nasolabial fold, asymmetry on smiling Left arm drift: No drift for full 10 sec Right arm drift: No drift for full 10 sec Left leg drift: No drift for full 5 sec Right leg drift: No drift for full 5 sec Limb ataxia: Present in two limbs Sensory on face/arms/legs: Normal, no sensory loss Best language: Mild to moderate, slurs some words Dysarthria: Normal Extinction or inattention: No abnormality Total NIH Stroke scale score: 7 Course Orders Ordered: ED Orders 07/27/24 16:59 CT head/brain wo con Stat 07/27/24 17:00 CT angio head and neck Stat Complete Blood Count AUTO DIFF Stat Comprehensive Metabolic Panel Stat Ethanol (ETOH) Stat Lipase Stat Magnesium Stat PTT Partial Thromboplastin [place] Stat Prothrombin Time INR Stat Thyroid Stimulating Hormone Stat Troponin & CK Cardiac Panel Stat 07/27/24 17:01 EKG-12 Lead Stat 07/27/24 17:44 Consult to Physician Stat Vital Signs Vital signs: Vital Signs - 8 hr 07/27/24 17:00 Temperature 98.1 F Pulse Rate 102 H Respiratory Rate 20 Blood Pressure 131/60 Pulse Oximetry 100 Oxygen Delivery Method Room Air MDM - Neuro Symptoms/Deficit Medical Records Attestation: I reviewed the patient's medical records. Lab Data Attestation: I reviewed the patient's lab results. 07/27/24 17:00 07/27/24 17:00 Labs: Lab Results 07/27/24 Range/Units 17:00 WBC 9.2 (4.5-11.0) X10^3/uL RBC 4.27 (4.0-5.2) X10^6/uL Hgb 13.5 (12.0-16.0) g/dL Hct 40.2 (36-46) % MCV 94.1 (80-100) fL MCH 31.7 (26-34) PG MCHC 33.6 (30-36) % RDW 13.5 (11.6-14.8) % Plt Count 208 (150-400) X10^3/uL Neut % (Auto) 83.8 H (50-75) % Lymph % (Auto) 11.6 L (25-40) % [place] % (Auto) 4.3 (3-14) % Eos % (Auto) 0.0 L (2-4) % Baso % (Auto) 0.3 (0-2) % Neut # (Auto) 7700 H (1800-7670) /uL Lymph # (Auto) 1100 (0400-3695) /uL [place] # (Auto) 400 (0-900) /uL Eos # (Auto) 0 (0-450) /uL Baso # (Auto) 0 (0-100) /uL PT 12.0 (9.4-12.5) SECONDS INR 1.1 (0.9-1.3) APTT 39 H (25.1-36.5) SECONDS Sodium 136 L (137-145) mmol/L Potassium 3.7 (3.4-5.1) mmol/L Chloride 104 (98-107) mmol/L Carbon Dioxide 24 (22-32) mmol/L BUN 16 (7-17) mg/dL Creatinine 0.72 (0.52-1.04) mg/dL Estimated GFR > 60 (>60) mL/min BUN/Creatinine Ratio 22.2 H (6-22) Glucose 149 H (80-110) mg/dL Calcium 9.5 (8.4-10.2) mg/dL Magnesium 2.0 (1.6-2.3) mg/dL Total Bilirubin 0.6 (0.2-1.3) mg/dL AST 43 H (14-36) IU/L ALT 35 H (<35) IU/L Alkaline Phosphatase 117 (38-126) U/L Total Creatine Kinase 94 (30-135) U/L Troponin I 0.015 (0.01-0.034) ng/mL Total Protein 7.2 (6.3-8.2) g/dL Albumin 4.4 (3.5-5.0) g/dL Globulin 2.8 (1.7-4.1) g/dL Albumin/Globulin Ratio 1.6 (1.0-2.8) Lipase 57 (23-300) U/L Ethyl Alcohol < 10 ( - 10) mg/dL Imaging Data CT scan - head: Radiologist's Impression: PROCEDURE: CT HEAD/BRAIN WO CON INDICATIONS: Slurring words TECHNIQUE: Noncontrast 4.5 mm thick angled axial sections acquired from the foramen magnum to the vertex, with coronal and sagittal reformats. For radiation dose reduction, the following was used: automated exposure control, adjustment of mA and/or kV according to patient size. COMPARISON: [facility], CT, CT HEAD/BRAIN WO CON, 07/10/2018, 11:41. FINDINGS: Image quality: Diagnostic CSF spaces: Basal cisterns are patent. Lateral ventricles are symmetric. Volume: Vascular calcifications. Periventricular white matter disease is commonly seen with chronic microangiopathy. Volume loss is present. These findings are moderate Brain: No intracranial hemorrhage. Mauricio-white differentiation is grossly maintained. Craniofacial structures: No displaced fracture. Sinuses are clear. Orbits are intact. IMPRESSION: No acute intracranial pathology. If there is high concern for infarct, consider MRI. ECG Data Attestation: I personally reviewed and interpreted this ECG as follows: Interpretation: Sinus rhythm Ventricular rate 98 Normal axis Left bundle-branch block No ST T wave changes MDM Narrative Medical decision making narrative: Patient is well outside the window for tPA she presents greater than 4-1/2 hours after her last known normal. She was allergic to iodine so I am unable to obtain a CTA although her presentation today is not consistent with a large vessel occlusion. Has a NIH of 7 however some of the positive results were for the limb ataxia. She was unable to do the activity although she was making other very purposeful movements with her arms and legs and I suspect that this is just her inability to comprehend what I was asking her to do. Labs are unremarkable. She has had a TIA in the past approximately 1 year ago. I did discuss the case with Dr. Grover he was on-call for the patient's primary doctor. Who will admit for further evaluation and treatment. Discharge Plan Departure Patient Disposition: Admitted As Inpatient Clinical Impression: Cerebrovascular accident Admit Date/Time: 07/27/24 17:44 Admit Provider: Viky Seymour
--- NOTE | 2024-07-27 17:19 | EKG_ITS ---
[place] [id number] [place] [id number] Test Date: 2024-07-27 Pat Name: Viky Madison Department: Room: Gender: Female Medical Policy Specialist: MAJOR : 1935 Requested By: Order Number: [id number] Reading MD: Dago Crow Measurements Intervals [place] Rate: 98 P: 63 SC: 152 QRS: 4 QRSD: 130 T: 130 QT: 392 QTc: 500 Interpretive Statements Normal sinus rhythm Left bundle branch block Electronically Signed On 07-28-2024 18:35:23 PST by Dago Crow
[2024-07-27 17:26] LABS: Add Manual Diff / Slide Review NO; Basophils Absolute Auto 0 /uL (0-100); Basophils Percent Auto 0.3 % (0-2); Eosinophils Absolute Auto 0 /uL (0-450); Hematocrit 40.2 % (36-46); Hemoglobin 13.5 g/dL (12.0-16.0); Lymphocytes Absolute Auto 1100 /uL (1100-4500); Lymphocytes Percent Auto 11.6 % (25-40); Mean Corpuscular HGB Conc 33.6 % (30-36); Mean Corpuscular Hemoglobin 31.7 PG (26-34); Mean Corpuscular Volume 94.1 fL (80-100); Monocytes Absolute Auto 400 /uL (0-900); Monocytes Percent Auto 4.3 % (3-14); Neutrophils Absolute Auto 7700 /uL (1500-7000); Neutrophils Percent Auto 83.8 % (50-75); Platelet Count 208 X10^3/uL (150-400); Red Blood Cell Count 4.27 X10^6/uL (4.0-5.2); Red Cell Distribution Width 13.5 % (11.6-14.8); White Blood Cell Count 9.2 X10^3/uL (4.5-11.0)
[2024-07-27 17:30] LABS: Alanine Aminotransferase 35 IU/L (<35); Albumin 4.4 g/dL (3.5-5.0); Albumin Globulin Ratio 1.6 (1.0-2.8); Alkaline Phosphatase 117 U/L (38-126); Aspartate Aminotransferase 43 IU/L (14-36); BUN Creatinine Ratio 22.2 (6-22); Bilirubin Total 0.6 mg/dL (0.2-1.3); Blood Urea Nitrogen 16 mg/dL (7-17); Carbon Dioxide 24 mmol/L (22-32); Chloride 104 mmol/L (98-107); Estimated Glomerular Filt Rate > 60 mL/min (>60); Ethanol (ETOH) < 10 mg/dL; Globulin 2.8 g/dL (1.7-4.1); Total Protein 7.2 g/dL (6.3-8.2)
[2024-07-27 17:32] LABS: Calcium 9.5 mg/dL (8.4-10.2); Glucose 149 mg/dL (80-110); HEMOLYSIS 15 (0-50); Potassium 3.7 mmol/L (3.4-5.1); Sodium 136 mmol/L (137-145)
[2024-07-27 17:33] LABS: Creatine Kinase 94 U/L (30-135); Lipase 57 U/L (23-300)
[2024-07-27 17:34] LABS: INR 1.1 (0.9-1.3)
[2024-07-27 17:37] LABS: PTT Partial Thromboplastin Tim 39 SECONDS (25.1-36.5)
[2024-07-27 17:42] LABS: Troponin I 0.015 ng/mL (0.01-0.034)
--- NOTE | 2024-07-27 17:49 | PC.NURSE ---
This RN checks on patient. She is alert and not oriented. Thinks year is 1924, unsure of where she is at, and unable to accurately give her date. Smile is equal, bilateral upper environmental health physician strength equal, able to hold legs up with no drift 5 seconds each. She asks questions to her such as, What time are you? and in general her speech is disorganized. Reports blurry vision, but states always is. Provider Olive comes to updated patient and about being admitted. Encouraged to call this RN with any changes. Call light in reach.
[2024-07-27 18:05] VITALS: BP 148/63; PULSE 91; RESP 16; TEMP 37.2; O2SAT 95
[2024-07-27 18:11] VITALS: BMI 21.5
--- NOTE | 2024-07-27 18:13 | DI.MRI.S_ITS ---
PROCEDURE: MR STROKE Pre- and post-contrast brain MRI, non-contrast brain MR angiogram, pre- and postcontrast neck MR angiogram INDICATIONS: acute stroke symptoms TECHNIQUE: Brain: Noncontrast axial T1 spin echo, axial T2 fast spin echo, sagittal and axial FLAIR, coronal T2 fast spin echo, axial gradient echo, axial diffusion and ADC through the brain. After the administration of contrast, axial 3D VIBE of the cranial vasculature and brain. Brain MRA: Non-contrast 3-D time of flight MR angiogram, with multiple qhvwxis-hcsjhjayi-knvsxsbibl (MIP) reformats performed. Neck MRA: Axial and sagittal TruFISP through the neck. Coronal dynamic MR angiogram during administration of contrast in the arterial and venous phases, with 3-dimenstional tknxzle-uwbmjasli-dhvfldvhlb (MIP) reformats constructed from subtraction images. COMPARISON: [facility], CT, CT HEAD/BRAIN WO CON, 07/27/2024, 17:10. [facility], MR, MR STROKE, 04/11/2020, 7:37. FINDINGS: Image quality: Excellent. BRAIN: CSF spaces: Ventricles are normal in size and shape. Basal cisterns are patent. No extra-axial fluid collections. Brain: No intracranial bleeds or mass effects. Mauricio-white matter interface is normal. Age-related volume loss and moderate to severe, age-related small vessel ischemic change. Diffusion weighted images show multifocal very tiny punctate infarcts in the left cerebral hemisphere. Findings include a periventricular deep white matter punctate infarct in the posterior left temporal occipital area on axial diffusion image 61 of series 20, as well as a punctate cortical left frontal acute infarct on image 69 of series 20 and a punctate left frontal deep white matter infarct on axial image 64 of series 20. Brainstem appears normal. Normal intravascular flow voids are present. No abnormal intracranial enhancement. Skull and face: Calvarial marrow signal is normal. Orbits appear normal. Sinuses: Sinuses and mastoids are clear. BRAIN MR ANGIOGRAM: Anterior circulation: Intracranial internal carotid arteries are normal in size and enhancement. The flow within the paired anterior cerebral arteries is normal and symmetric. Luminal regularity involving the right M1 and M2 segments of the right middle cerebral artery are consistent with mild intracranial atherosclerotic disease. The left middle cerebral artery is unremarkable. The anterior communicating artery is seen. No stenoses, occlusions, or aneurysms. Posterior circulation: The visualized portions of the vertebral arteries demonstrate normal caliber, and join to form a normal appearing basilar artery. The flow within the posterior cerebral arteries is normal and symmetric. No stenoses, occlusions, or aneurysms. NECK MR ANGIOGRAM: Carotids: Great vessels demonstrate a conventional anatomy as they arise from the aortic arch. The origins of the common carotid arteries appear patent. The calibers and courses of both common carotid arteries are normal. The bifurcation regions appear normal bilaterally. The internal carotid arteries demonstrate normal course and caliber. Posterior circulation: The origins of the vertebral arteries appear patent. More superior portions of both vertebral arteries demonstrate normal course and caliber, and join to form a normal appearing basilar artery. Miscellaneous: Subclavian arteries appear patent. Pre-contrast images through the neck show no soft tissue abnormalities. IMPRESSION: BRAIN MRI: 1. There are multifocal tiny punctate left-sided acute infarcts which may potentially be related to a tiny embolic event to the left middle cerebral artery. 2. Age-related volume loss and moderate to severe small vessel ischemic change. BRAIN MR ANGIOGRAM: Mild right MCA disease, otherwise unremarkable. No filling defects or aneurysms. NECK MR ANGIOGRAM: Patent carotids. Dictated by: Dagoberto Erickson M.D. on 07/28/2024 at 10:55 Approved by: Dagoberto Erickson M.D. on 07/28/2024 at 11:22
[2024-07-27 18:16] LABS: Thyroid Stimulating Hormone 1.57 uIU/mL (0.47-4.68)
[2024-07-27 19:00] VITALS: BP 122/58; PULSE 88; RESP 16; TEMP 37.2; O2SAT 95
[2024-07-27] MEDS: SODIUM CHLORIDE 0.9% FLUSH 10 ML IV (21:08)
[2024-07-28 06:09] LABS: Add Manual Diff / Slide Review NO; Basophils Absolute Auto 100 /uL (0-100); Basophils Percent Auto 0.7 % (0-2); Eosinophils Absolute Auto 0 /uL (0-450); Eosinophils Percent Auto 0.4 % (2-4); Hematocrit 35.7 % (36-46); Lymphocytes Absolute Auto 1000 /uL (1100-4500); Lymphocytes Percent Auto 13.7 % (25-40); Mean Corpuscular HGB Conc 33.6 % (30-36); Mean Corpuscular Hemoglobin 31.5 PG (26-34); Mean Corpuscular Volume 93.7 fL (80-100); Monocytes Absolute Auto 900 /uL (0-900); Monocytes Percent Auto 11.5 % (3-14); Neutrophils Absolute Auto 5500 /uL (1500-7000); Neutrophils Percent Auto 73.7 % (50-75); Platelet Count 180 X10^3/uL (150-400); Red Blood Cell Count 3.81 X10^6/uL (4.0-5.2); Red Cell Distribution Width 13.7 % (11.6-14.8); White Blood Cell Count 7.5 X10^3/uL (4.5-11.0)
[2024-07-28 06:31] LABS: Alanine Aminotransferase 29 IU/L (<35); Albumin 3.7 g/dL (3.5-5.0); Albumin Globulin Ratio 1.4 (1.0-2.8); Alkaline Phosphatase 78 U/L (38-126); Aspartate Aminotransferase 37 IU/L (14-36); Bilirubin Total 0.6 mg/dL (0.2-1.3); Blood Urea Nitrogen 17 mg/dL (7-17); Calcium 9.1 mg/dL (8.4-10.2); Carbon Dioxide 26 mmol/L (22-32); Chloride 105 mmol/L (98-107); Estimated Glomerular Filt Rate > 60 mL/min (>60); Globulin 2.7 g/dL (1.7-4.1); Glucose 103 mg/dL (80-110); HEMOLYSIS 18 (0-50); Potassium 3.3 mmol/L (3.4-5.1); Sodium 136 mmol/L (137-145); Total Protein 6.4 g/dL (6.3-8.2)
[2024-07-28 08:00] VITALS: BP 150/65; PULSE 88; RESP 16; TEMP 37.2; O2SAT 95
--- NOTE | 2024-07-28 08:20 | DI.ECHO.S_ITS ---
[facility] : : [id number] [place] [address] : : [id number] : : Phone: [phone] Echocardiogram Report + + :Name: GORDO ALFRED Study Date: 07/28/2024 Height: 64 in : :[facility] ReadingLocation: Weight: 125 lb: : Gender: Female BSA: 1.6 m2 : :: 1935 Age: 88 yrs : :Reason For Study: TIA : :Ordering Physician: DELILAH, : :ALLEN Performed By: Cass Luque : :Referring: LALEN MAZARIEGOS : + + Interpretation Summary 1) Normal left ventricular size and thickness with mildly reduced systolic function (EF 45-50%). 2) Normal right ventricular size and function. 3) There is mild aortic regurgitation. 4) There is a small-moderate pericardial effusion noted. 5) Compared to the Echo done 07/30/2023, pericardial effusion has worsened from small to small-moderate on this study and LVEF has decreased from 55-60% to 45-50% on this study. Procedure: A two-dimensional transthoracic echocardiogram with color flow and Doppler was performed. The study quality was technically adequate. Comparison is made with the echocardiogram of 07/30/2023. The patient was in sinus rhythm with heart rates between 71-76 bpm during the exam. Left Ventricle: The left ventricle is normal in size. There is normal left ventricular wall thickness. The ejection fraction is estimated to be 45-50%. There is mild global hypokinesis of the left ventricle. Septal motion is consistent with conduction abnormality. Diastolic parameters suggest a pseudonormalization pattern, consistent with probable elevated filling pressures. Right Ventricle: The right ventricle is normal in size and function. Atria: The left atrium is moderately dilated. Right atrial size is normal. There is no Doppler evidence for an interatrial shunt. Mitral Valve: The mitral valve leaflets appear borderline thickened, but open well. There is mild mitral annular calcification. There is trace mitral regurgitation. Aortic Valve: The aortic valve is trileaflet. The aortic valve is moderately calcified. There is no aortic valve stenosis. There is mild aortic regurgitation. Tricuspid Valve: The tricuspid valve leaflets are thin and pliable. There is mild tricuspid regurgitation. The right ventricular systolic pressure is estimated to be at least 31 mmHg based on an estimated right atrial pressure of 3 mm Hg. Pulmonic Valve: The pulmonic valve leaflets are thin and pliable; valve motion is normal. There is mild pulmonic regurgitation. Great Vessels: The aortic root is normal size. The dimensions of the ascending aorta are normal. The IVC is of normal diameter and collapses greater than 50% with a sniff. This suggests a low right atrial pressure of 3 mm Hg. Pericardium/ Pleura There is a small to moderate pericardial effusion noted. There is no pleural effusion. MMode/2D Measurements & Calculations LVIDd: 4.5 cm LVOT diam: 2.0 cm LVIDs: 3.2 cm Ao root diam: 2.8 cm FS: 28.6 % asc Aorta Diam: 2.7 cm EPSS: 1.1 cm Ao Arch Diam (Prox Trans): 3.0 cm IVSd: 1.0 cm LVPWd: 0.87 cm LV calixto. diameter/BSA (cm/m^2): 2.8 LV sys. diameter/BSA (cm/m^2): 2.0 LA A2 area: 18.3 cm2 RA long axis: 4.2 cm LA A4 area: 15.3 cm2 RA area: 12.8 cm2 LA length (vol): 3.9 cm RA vol: 33.3 ml LA vol: 61.4 ml RA : 20.8 ml/m2 LA vol index: 38.3 ml/m2 IVC diam: 1.1 cm RVD1 (basal): 3.6 cm RVD2 (mid): 3.1 cm TAPSE: 1.7 cm Doppler Measurements & Calculations Ao V2 max: 128.2 cm/sec LVOT Max Tyree: 84.1 cm/sec Ao V2 mean: 94.7 cm/sec LV V1 max P.8 mmHg Ao max P.6 mmHg LV V1 VTI: 16.8 cm Ao mean P.9 mmHg TIFFANY(I,D): 1.9 cm2 Ao V2 VTI: 29.5 cm TIFFANY(V,D): 2.1 cm2 sev ratio: 0.57 TIFFANY indexed to BSA (cm^2/m^2): 1.2 MV E max tyree: 46.1 cm/sec TR max tyree: 265.8 cm/sec MV A max tyree: 94.4 cm/sec TR max P.3 mmHg MV E/A: 0.49 PA V2 max: 96.2 cm/sec Lat Peak E' Tyree: 2.9 cm/sec PA V2 mean: 65.6 cm/sec E/E' lat: 15.9 PA mean P.9 mmHg MV dec time: 0.25 sec PA pr(Accel): 37.9 mmHg SV(LVOT): 54.9 ml Reading Physician:02:58 PM
[2024-07-28] MEDS: ASPIRIN EC 81 MG TABLET PO (08:23)
[2024-07-28] MEDS: SODIUM CHLORIDE 0.9% FLUSH 10 ML IV ×2 (08:23→22:33)
[2024-07-28] MEDS: MULTIVITAMIN 1 TABLET 1 TAB PO (09:05)
[2024-07-28] MEDS: VIT C/E/ZN/COPPR/LUTEIN/ZEAXAN CAPSULE 1 CAP PO (09:05)
[2024-07-28] MEDS: CLOPIDOGREL 75 MG TABLET PO (09:05)
--- NOTE | 2024-07-28 09:13 | PT.IIE ---
Medical History (Last Reviewed 07/27/24 @ 17:21 by Ernesto Schaefer DO) Patent foramen ovale Physical Therapy Inpatient Evaluation/Re-Eval M1 PT/OT-IP Prior Functional Status Start: 07/28/24 07:30 Freq: NEEDED Status: Active Protocol: Document 07/28/24 08:39 MB (Rec: 07/28/24 09:13 MB [id number]) Medical Review Prior Functional Status Medical History Reviewed Yes Diet/Fluid Consistency Regular Communication Unsure baseline communication and pt with confusion today Mobility and Gait I without AD and pt tends to veer to the right when tired per pt. states previous stroke affected vision pt states that previoius stroke affected vision and right side. Overall , pt has vision changes and decreased coordination with left finger to nose and unsure if baseline vision issues could affect that. and pt provide differing/ conflicting info occ and this does not make assessment clear Activities of Daily Living and IADL's I per pt and , pt does not drive d/t vision impairment Social History Household Members spouse Living Arrangements House Number of Floors (Floors) Two Floors Number of Stairs To Enter/Railing? 13 steps with left rail descend to basement 2-3 steps without rail to enter the house Home Environment Standard Height Toilet,Walk in Shower Home Equipment Front Wheel Walker,Straight Cane,Hand Held Shower,Grab Bars In Shower Employment Status Retired Additional Social History Comment Once again, pt and 's reports vary and occ, the report does not seem accurate that comes from M2 PT-IP Current Condition Start: 07/28/24 07:30 Freq: NEEDED Status: Active Protocol: Document 07/28/24 08:39 MB (Rec: 07/28/24 09:13 [id number]) Physical Therapy Current Condition Current Condition Evaluation Date 07/28/24 Treatment Diagnosis Confusion, imbalance, r/o stroke M3 PT-IP Subjective Start: 07/28/24 07:30 Freq: NEEDED Status: Active Protocol: Document 07/28/24 08:39 MB (Rec: 07/28/24 09:13 MB [id number]) Subjective Physical Therapy Visit Type Type Initial Evaluation Visit Start Time 08:39 Visit Stop Time 08:58 Number of MENTAL TESTER Visits 0 Physical Therapy Visit Comments Patient Comments Pt is agreeable to PT, reports she is off cognitively, I'm all weird Therapy Pain Assessment Pain When Pain Assessed At Rest Pain Present Pain Present Denied Pain M4 PT-IP Mobility and Gait Start: 07/28/24 07:30 Freq: NEEDED Status: Active Protocol: Document 07/28/24 08:39 MB (Rec: 07/28/24 09:13 MB [id number]) PT-Transfer Assessment Sit to and From Stand Sit to and from Stand Standby Assistance,1 Person Assistance,Use of Upper Extremities Equipment Transfer Assistive Device Gait Belt,Front Wheeled Walker Orthotic/Prosthetic Devices or Brace: No Transfers Transfer Destination Chair Transfer Technique Ambulation Transfer Ability Level of Assist Standby Assistance,1 Person Assistance,Use of Upper Extremities Comments Mobility Comments Cues to push up from the chair and not from the walker. BP and HR in LUE: sitting 133/65, 86; standing 127/60, 98. Gait Assessment Gait Gait Assistance Required: Standby Assistance,Contact Guard Assist Distance (Feet) 100 Able to Maintain Weight Bearing Status Yes During Gait Assistive Devices Assistive Device Gait Belt,Front Wheeled Walker Orthotic/Prosthetic Devices or Brace: No Gait Deviations General Gait Pattern Decreased Stride Length,Flexed Trunk Factors Limiting Gait Function Factors Limiting Gait Function Difficulty Following Directions,Poor Balance,Poor Safety Awareness Comments Gait Comments 50' gait with RW with slower wilson and SBA; 70'x1 and 100 'x1 without AD and with CGA, pt with veering to the right/ imbalance and requires touch/ CGA assist at gait belt for safety for gait Stair Climbing Assessment Evaluation Level of Assist On Stairs Minimal Assistance Technique/Endurance Stair Climbing Direction Ascend and Descend Stair Climbing Technique Step Over Step Number of Steps Climbed 3 Query Text: Stair Climbing Set # Repetitions (reps) 1 Comments Stair Climbing Comments 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 or RW M5 PT-IP Objective Assessments Start: 07/28/24 07:30 Freq: NEEDED Status: Active Protocol: Document 07/28/24 08:39 MB (Rec: 07/28/24 09:13 MB [id number]) Orientation Orientation/Cognition Level of Alertness Confusional State Orientation Name,Birthday,Month,Place Language Function Ability No Deficits Noted Safety Awareness Decreased Safety Awareness Comments Pt is alert and does have confusion Gross Range of Motion Upper Extremity ROM Assessment Within Functional Limits Lower Extremity ROM Assessment Within Functional Limits Strength Lower Extremity Strength Assessment Within Functional Limits Coordination Assessment Gross Coordination Gross Coordination Impaired Assessment Finger to Nose Test L impaired severe x2 Sensation Assessment Comments Sensation Comments Did not test d/t confusion and no reported changes Muscle Tone Muscle Tone WNL Yes M7 PT-IP Assessment and Plan Start: 07/28/24 07:30 Freq: NEEDED Status: Active Protocol: Document 07/28/24 08:39 MB (Rec: 07/28/24 09:13 MB [id number]) PT Summary Assessment and Plan Potential Rehabilitation Potential Good Status of Condition at Evaluation Evolving Summary Impairments Balance,Coordination,Cognition ,Bed Mobility,Transfers,Gait Progress Towards Goals Progressing Toward Goals Assessment Summary Pt is an 88 y/o female presenting with confusion, imbalance, decreased right UE coordination and pt and reports of baseline vision problems. For OT and cognitive assessment, recommend seeing pt without or other visitors in the room. Pt and occ provide different answers and although pt is confused, some of her 's answers do not appear correct. Pt presents with good LE strength and coordination when tested in sitting, but she presents with imbalance and veering to the right with gait without AD . She may benefit from LRAD training in acute setting. It is unclear why pt is not using AD at home if she has baseline veering issues per pt and . They prefer home with assist and OPPT with [facility] at [facility]. PT is in agreement with this plan, recommend OP MERG[employer] AND ACQUISITIONS CONSULTANT consult for cognition as well. Goals Bed Mobility Goal Independent Transfer Goal Standby Assistance,Cane,Front Wheeled Walker Gait Goal Independent,Cane,Front Wheel Walker Gait Distance 150 Other Goals Pt will ascend and descend 3 steps with CGA and 6 steps with left rail and SBA to allow safe home entrance and indoor mobility. Days to Meet Goals 5 Frequency of Treatment Other frequency 1-2x/day Treatment Plan Physical Therapy Treatment Plan Bed Mobility Training,Transfer Training,Gait Training, Therapeutic Exercise,Balance Retraining,Discharge Planning, Hot or Cold Pack,Neuromuscular Re-ed,Coordination Retraining ,Manual Therapy Precautions Other Precautions Fall risk, low vision Recommendations To Nursing Amount of Assist Needed 1 Person Assist Discharge Recommendations PT Discharge Recommendations Home with 16/02 Assist Available,Outpatient PT Other Discharge Recommendations OP [employer] ACQUISITION[employer] CONSULTANT for cognition assessment and treatment Transportation Needs at Discharge Private Vehicle
--- NOTE | 2024-07-28 10:47 | CM.DANOTE ---
Initial DCP Assessment Visit Note Reviewed EMR and team rounds for status updates. Met with pt and several family members at bedside to introduce self and role. Pt was found to be alert, oriented, and sitting upright in her recliner visiting w/her family. She states that she feels very close to her baseline, mentally, and is hopeful to d/c home after her brain MRI later this morning. Pt lives independently at baseline with no AD in her own home w/spouse here in [place]. Family will transport her home once she's medically cleared for d/c. Pt/family deny any CM assistance/resource needs for d/c at this time. Payor: Medicare PCP: Dr. Seymour Pt is a 88 year-old F with a past hx of TIA, not on anticoagulation. She presented to the ED last evening via EMS for worsening issues with speaking, confusion, and balance issues. Her shared with the ED staff that pt had woken up yesterday morning her normal self, and steadily became more confused, disoriented, and was having difficulty walking as the day wore on. CT head did not show any brain abnormalities, however it had already been greater than 4 1/2 hours from the start of the event until she was seen at the ED, so imaging would not likely show anything. Brain MRI has been completed this morning, results are pending. Pt has already worked with PT, and was encouraged to use a walker for mobility when she returns home due to observable balance deficits. DCP will continue to monitor for any further evolving needs for home assistance prior to her departure. Discharge Planning/Care Management CM Discharge Assessment Start: 07/28/24 10:45 Freq: Status: Active Protocol: Document 07/28/24 10:45 DPL (Rec: 07/28/24 10:47 DPL [id number]) Discharge Planning Assessment Assigned Manifold Operator MICHAEL Wilkins Advance Directives? No History Provided By Patient,Family Member,Medical Record Has Patient been admitted in last 30 No days? Prior Living Arrangements House Household Members spouse Type of transporation used prior to Relies on Others admit Independent with ADL's Yes Is patient alert and oriented? Yes Caregiver for Another No DME Already Rented / Owned Bath Bench,Elevated Toilet Seat,FWW / Walker,Cane Comment No identified home d/c needs at this time. Barriers to Discharge No Discharge Plan Home Transportation Arrangement Family Referrals Initiated None needed Whiteboard Updated in Patient Room with Yes name and ext. # of Manifold Operator Review Status In Process Please Provide Date Initial DC 07/28/24 Assessment Was Performed
--- NOTE | 2024-07-28 12:08 | OT.IP.EVAL ---
Past Medical History (Last Reviewed 07/27/24 @ 17:21 by Ernesto Schaefer DO) Patent foramen ovale Occupational Therapy Inpatient Evaluation/Re-Eval M1 PT/OT-IP Prior Functional Status Start: 07/28/24 07:30 Freq: NEEDED Status: Active Protocol: Document 07/28/24 11:32 [facility] (Rec: 07/28/24 12:08 [facility] [id number]) Medical Review Prior Functional Status Medical History Reviewed Yes Diet/Fluid Consistency Regular Communication Unsure baseline communication and pt with confusion today Mobility and Gait I without AD and pt tends to veer to the right when tired per pt. states previous stroke affected vision pt states that previous stroke affected vision and right side. Activities of Daily Living and IADL's I per pt and , pt does not drive d/t vision impairment. Pt's does the IADL needs. Social History Household Members spouse Living Arrangements House Number of Floors (Floors) Two Floors Number of Stairs To Enter/Railing? 2 steps with no rail to platform and then a small step into the house. 13 steps with left rail to get into the basement where her bedroom and office are located . Home Environment Standard Height Toilet,Walk in Shower,Built-In Shower Seat Home Equipment Front Wheel Walker,Straight Cane,Grab Bars In Shower M2 OT-IP Current Condition Start: 07/28/24 11:32 Freq: Status: Active Protocol: Document 07/28/24 11:32 [facility] (Rec: 07/28/24 12:08 [facility] [id number]) Occupational Therapy Current Condition Current Condition Evaluation Date 07/28/24 Treatment Diagnosis Confusion, Imbalance Diagnosis Onset Date 07/27/24 M3 OT- IP Subjective and Pain Start: 07/28/24 11:32 Freq: Status: Active Protocol: Document 07/28/24 11:32 [facility] (Rec: 07/28/24 12:08 [facility] [id number]) OT- Subjective Occupational Therapy Visit Type Type Initial Evaluation Visit Start Time 10:50 Visit Stop Time 11:30 Occupational Therapy Visit Comments Patient Comments Pt agreed to get up to brush her teeth. Patient/Caregiver Goals To go home and do outpt PT. OT Pain Assessment Pain When Pain Assessed At Rest Pain Present Pain Present Denied Pain M4 OT- IP ADL's Start: 07/28/24 11:32 Freq: Status: Active Protocol: Document 07/28/24 11:32 [facility] (Rec: 07/28/24 12:08 [facility] [id number]) OT ADL-Grooming Comments OT Grooming Comments Pt states did prior. OT ADL-Oral Care General Eval Oral Care Ability Standby Assistance Areas of Assistance Retrieving/Set-Up of Items Comments Oral Care Comments Pt not able to see well and putting toothpaste on her finger versus toothbrush. Educated pt to try to turn her head to the right more to see , Suggested able to squeeze the toothpaste directly into her mouth if needed. Pt's states pt usually stands for 15 minutes and is very meticulous of her dental hygiene. Suggested to sit down if needed. OT ADL-Dressing General Eval Lower Body Dressing Ability Standby Assistance Comments OT Dressing Comments Pt able to [place]/doff her socks but having to have increased time to [place]/doff the right sock. OT ADL-Toileting Comments OT Toileting Comments NOt performed. Reminded pt to calll for assist if having to get up to use the bathroom. OT ADL-Bathing Comments OT Bathing Comments Pt would benefit from assist and shower chair at this time. M5 OT- IP IADL's Start: 07/28/24 11:32 Freq: Status: Active Protocol: Document 07/28/24 11:32 [facility] (Rec: 07/28/24 12:08 [facility] [id number]) OT-Instrumental Activities of Daily Living Home Safety Awareness Ability to Problem Solve Emergency Unable to Problem Solve Situations Home Safety Comments Pt needing increased time and cues in order to solve safety needs. Medication Management Medication Management Caregiver Administers Money Management Money Management Caregiver Provides Assistance Meal Preparation Meal Preparation Caregiver Provides Assist Java Sql Developer Java Sql Developer Caregiver Provides Assist Driving Driving Caregiver Provides Assist M6 OT- IP Functional Cognition Start: 07/28/24 11:32 Freq: Status: Active Protocol: Document 07/28/24 11:32 [facility] (Rec: 07/28/24 12:08 [facility] [id number]) Cognitive Factors Limiting Selfcare Function Cognitive Ability Level of Alertness Alert Patient Orientation Name,Place,Situation Attention Span Ability Capable of Focused Attention, Capable of Sustained Attention Ability to Follow Commands Able to Follow One Step Commands Cognitive Comments Cognitive Assessment Comments Pt able to follow commands for ADL and mobility needs. Pt is forgetful of home environment , remembering that she has pockets in her PJ's. Pt not wanting to do SLUMS but will benefit from doing one. Pt's feels that she is close to her baseline overall. 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 Educated for pt to tryy to keep her head turned to the right in order to better see. However when pt turns to head to the right pt tends to veer right. M7 OT- IP Mobility and Balance Start: 07/28/24 11:32 Freq: Status: Active Protocol: Document 07/28/24 11:32 [facility] (Rec: 07/28/24 12:08 [facility] [id number]) OT-Transfer Assessment Sit to and From Stand Sit to and from Stand Standby Assistance Transfers Transfer Ability Standby Assistance,Contact Guard Assistance Technique Transfer Destination Chair Transfer Technique Stand Step Pivot Devices Transfer Assistive Devices None,Gait Belt Comments Mobility Comments Pt able to come to stand with SBA and walk to the sink and then hallway with occasional CGA for safety, but close SBA with no AD, just gait belt for safety. Pt states usually wears shoes, in which pt just using socks for OT eval. OT- Balance Assessment Sitting Balance and Reactions Static Sitting Balance Ability Good Dynamic Sitting Balance Ability Good Standing Balance and Reactions Static Standing Balance Ability Fair Dynamic Standing Balance Ability Fair M8 OT- IP Objective Assessments Start: 07/28/24 11:32 Freq: Status: Active Protocol: Document 07/28/24 11:32 [facility] (Rec: 07/28/24 12:08 [facility] [id number]) OT Gross Range of Motion Upper Extremity Range of Motion Assessment Left Impaired OT Strength Upper Extremity Strength Assessment Bilaterally Impaired Comments Strength Comments Per pt left shoulder limited due history of rotator cuff injury. Hands decreased for java developer to twist off cap of toothpaste. RUE 4/5 to 3+/5 OT- Coordination Assessment Upper Extremity Finger to Nose Test Within Functional Limits M9 OT- IP Assessment and Plan Start: 07/28/24 11:32 Freq: Status: Active Protocol: Document 07/28/24 11:32 [facility] (Rec: 07/28/24 12:08 [facility] [id number]) OT Summary Assessment and Plan Potential Rehabilitation Potential Excellent Analytic Complexity at Evaluation Moderate Summary OT Impairments Strength,Balance,Functional Mobility,Self-Feeding,Grooming ,Dressing,Toileting,Bathing, Toilet Transfers,Shower Transfers,Activity Tolerance Progress Towards Goals Progressing Toward Goals Assessment Summary Pt MOD complexity and main barriers decreased balance, coordination, word finding , STM, and would benefit from 24 /7 assist at home with home health versus outpt therepy. Pt states is 85% of her baseline physically. Goals Self-Feeding Goal Independent Grooming Goal Independent Dressing Goal Independent Toileting Goal Independent Bathing Goal Independent Toilet Transfer Goal Independent Shower Transfer Goal Independent Days to Meet Goals 10 Frequency of Treatment Other frequency 5x/week Treatment Plan OT Treatment Plan ADL Training,Functional Cognition Training,Functional Mobility,Patient/Family Education,Discharge Planning Other Treatment Recommendations and Next Shower Treatment Focus Discharge Recommendations OT Discharge Recommendations Home with 24/7 Assist Available,Home Health, Outpatient PT Other Discharge Recommendations Pending progress tomorrow to consider possibly acute rehab. Home Equipment Needs Shower chair Transportation Needs at Discharge Private Vehicle
[2024-07-28] MEDS: POTASSIUM CHLORIDE 20 MEQ TAB PO (17:14)
--- NOTE | 2024-07-28 18:16 | P.HP_ITS ---
History of Present Illness History of Present Illness Date Patient Seen: 07/28/24 Time Patient Seen: 08:15 Date of Onset of Symptoms: 07/27/24 Chief complaint: Code Stroke Narrative: Patient is a 88-year-old female who I am cross covering for Dr. Seymour. Patient has been taking her aspirin a day. She has a history of high cholesterol and hypothyroidism. As otherwise had a history of stroke in early . Which workup apparently was negative. Did see pan devulcanizer helper at that time but there was nothing definitive to be done or problems noted. Did not have atrial fibrillation. She was in her usual state of health until she woke up yesterday morning. Apparently she was as tired. Got up and went to the bathroom went back to bed did not get up until 30. Which is unusual for her. She has had no fevers no chills no headaches no chest pain no shortness a breath. No orthopnea no PND. Patient apparently when she got up was having issues with word finding and was slurring her words. Did not know where she was. At that point the emergency room was contacted and 911 was sent. She has not had an issue with her blood pressure. By the time she got done with the emergency room and was admitted she would completely cleared all symptoms. She had had no numbness no tingling no issues with walking. It was all related to speech. She was having no swallowing problems. Today she is feeling back to normal. She has no other significant new changes. [facility] Medical History Patent foramen ovale Social History household members: spouse Smoking Status: Never smoker alcohol intake: never Meds Home Medications and Allergies Home Medications Medication Instructions Recorded Confirmed Type Ferrous Sulfate (Feosol) 325 mg PO Q DAY ##0 04/11/08 07/27/24 History MULTIVITAMIN (Multivitamin 1 cap PO EVERY DAY ##0 04/11/08 07/27/24 History -) [FLAXSEED OIL] 1 cap PO QDAY ##0 04/11/08 07/27/24 History calcium carbonate 500 mg-vitamin 1 tab PO BID ##0 04/11/08 07/27/24 History D3 5 mcg (200 unit) tablet (Oyster Shell Calcium-Vitamin D3) simvastatin 20 mg tablet (Zocor) 30 mg PO HS ##0 04/11/08 07/27/24 History atorvastatin 20 mg tablet (Lipitor) 20 mg PO QDAY ##0 08/20/16 07/27/24 History lutein 25 mg-zeaxanthin 5 mg 1 ea PO DAILY ##0 08/20/16 07/27/24 History capsule levothyroxine 112 mcg tablet 112 mcg PO QDAY ##0 01/09/17 07/27/24 History (Levoxyl) aspirin 81 mg tablet,delayed 81 mg PO DAILY 07/27/24 07/27/24 History release Allergies Allergy/AdvReac Type Severity Reaction Status Date / Time iodine [IODINE] Allergy Mild Hives Verified 07/27/24 17:35 formaldehyde [FORMALDEHYDE] Allergy Unknown Verified 07/27/24 17:35 Review of Systems Review of Systems Narrative: All negative except above Exam Vital Signs (past 8 hours): Oxygen Delivery Method Room Air Oxygen Flow Rate 0 Narrative Exam Narrative: Alert smiling female sitting in chair in no acute distress. HEENT exam shows no abnormality oral mucosa unremarkable neck supple without adenopathy. Lungs are clear. Heart is regular rate and rhythm without murmurs clicks rubs or gallops. Abdomen is soft positive bowel sounds nontender. Extremities without edema. Neurologic exam shows cranial nerves 2-12 are intact. Motor is 5/5. Reflexes are 2+ and symmetric both upper and lower extremities. Hsvmkm-ij-dgjx and ggml-um-blec are normal although she has a slight tremor in her left hand. She is alert oriented. Did not ambulate today. Objective Labs 07/28/24 05:40 07/28/24 05:40 Labs: Laboratory Results - last 24 hr 07/27/24 07/28/24 17:00 05:40 WBC 7.5 RBC 3.81 L Hgb 12.0 Hct 35.7 L MCV 93.7 MCH 31.5 MCHC 33.6 RDW 13.7 Plt Count 180 Neut % (Auto) 73.7 Lymph % (Auto) 13.7 L [place] % (Auto) 11.5 Eos % (Auto) 0.4 L Baso % (Auto) 0.7 Neut # (Auto) 5500 Lymph # (Auto) 1000 L [place] # (Auto) 900 Eos # (Auto) 0 Baso # (Auto) 100 Sodium 136 L Potassium 3.3 L Chloride 105 Carbon Dioxide 26 BUN 17 Creatinine 0.68 Estimated GFR > 60 BUN/Creatinine Ratio 25.0 H Glucose 103 Calcium 9.1 Total Bilirubin 0.6 AST 37 H ALT 29 Alkaline Phosphatase 78 Total Protein 6.4 Albumin 3.7 Globulin 2.7 Albumin/Globulin Ratio 1.4 TSH 1.57 Assessment & Plan Assessment & Plan narrative: Acute neurologic change probable stroke. Pretty much resolved at this point. Do not see any definitive findings on exam. MRI today. Echo will place on telemetry. Will discontinue aspirin add Plavix. No evidence of bleeding. Discussed extensively with family they understand questions answered. Physical therapy evaluated and felt that she was doing well. Occupational therapy feels outpatient treatment or acute rehab. On follow-up echo showed no evidence of significant change and tele has been normal. Will continue Plavix Systolic congestive heart failure. Slightly worsened on echo. Etiology is unclear at this point. Does have an increase in pericardial infusion which I do not think is the cause of this but maybe something we have to look up. This has been previously noted just slightly worsened. At this point will need outpatient cardiology evaluation. Which we discussed with family. Will need to be set up by primary care doctor next week. Pericardial effusion. Slightly worsened. Etiology is unclear. I do not think she is symptomatic from this. We discussed this. Will need to be followed by pan devulcanizer helper. I do not think it is emergent. We will do this as an outpatient. Hypo thyroidism. Continue usual med. Hyperlipidemia. Will continue her statin. Code status. DNR. DVT prophylaxis on Lovenox. Disposition. Seems to be stable. Will continue to monitor for atrial fibrillation for the next 12 hours if stable will discharge home with outpatient treatment. Patient understands. Has been understands. Questions answered. Greater than 75 minutes spent chart review time with the patient orders dictation Time-Based Coding :: [TOTAL MINUTES] spent with patient and on the chart (including review of chart, obtaining history, exam, reviewing outside data, placing orders, documenting exam and treatment plan, and counseling patient) on [DATE]. Quality VTE Deep Vein Thrombosis/Pulmonary Embolism Present on Admission: No
[2024-07-28 19:00] VITALS: BP 139/72; PULSE 75; RESP 18; TEMP 36.6; O2SAT 96
[2024-07-28] MEDS: DOCUSATE 100 MG CAPSULE PO (20:55)
[2024-07-28] MEDS: ATORVASTATIN 20 MG TABLET PO (20:55)
[2024-07-29] MEDS: LEVOTHYROXINE 112 MCG TABLET PO (06:20)
[2024-07-29 06:39] LABS: Add Manual Diff / Slide Review NO; Basophils Absolute Auto 100 /uL (0-100); Eosinophils Absolute Auto 100 /uL (0-450); Hematocrit 38.9 % (36-46); Lymphocytes Absolute Auto 1300 /uL (1100-4500); Lymphocytes Percent Auto 18.6 % (25-40); Mean Corpuscular HGB Conc 33.5 % (30-36); Mean Corpuscular Hemoglobin 31.5 PG (26-34); Mean Corpuscular Volume 94.2 fL (80-100); Monocytes Absolute Auto 600 /uL (0-900); Monocytes Percent Auto 8.5 % (3-14); Neutrophils Absolute Auto 5000 /uL (1500-7000); Neutrophils Percent Auto 70.9 % (50-75); Platelet Count 181 X10^3/uL (150-400); Red Blood Cell Count 4.13 X10^6/uL (4.0-5.2); Red Cell Distribution Width 13.3 % (11.6-14.8)
[2024-07-29 06:51] LABS: Alanine Aminotransferase 29 IU/L (<35); Albumin 3.8 g/dL (3.5-5.0); Albumin Globulin Ratio 1.3 (1.0-2.8); Alkaline Phosphatase 82 U/L (38-126); Aspartate Aminotransferase 38 IU/L (14-36); BUN Creatinine Ratio 27.1 (6-22); Bilirubin Total 0.5 mg/dL (0.2-1.3); Blood Urea Nitrogen 19 mg/dL (7-17); Calcium 9.4 mg/dL (8.4-10.2); Carbon Dioxide 29 mmol/L (22-32); Chloride 103 mmol/L (98-107); Estimated Glomerular Filt Rate > 60 mL/min (>60); Glucose 108 mg/dL (80-110); HEMOLYSIS < 15 (0-50); Potassium 4.1 mmol/L (3.4-5.1); Sodium 134 mmol/L (137-145); Total Protein 6.8 g/dL (6.3-8.2)
[2024-07-29 08:13] VITALS: BP 142/66; PULSE 78; RESP 16; TEMP 36.6; O2SAT 96
--- NOTE | 2024-07-29 08:31 | P.DS_ITS ---
History of Present Illness History of Present Illness Date Patient Seen: 07/29/24 Time Patient Seen: 08:31 Date of Onset of Symptoms: 07/27/24 Chief complaint: Code Stroke Narrative: Patient is a 88-year-old female who I am cross covering for Dr. Seymour. Patient has been taking her aspirin a day. She has a history of high cholesterol and hypothyroidism. As otherwise had a history of stroke in early 2 . Which workup apparently was negative. Did see truck body builder apprentice at that time but there was nothing definitive to be done or problems noted. Did not have atrial fibrillation. She was in her usual state of health until she woke up yesterday morning. Apparently she was as tired. Got up and went to the bathroom went back to bed did not get up until 30. Which is unusual for her. She has had no fevers no chills no headaches no chest pain no shortness a breath. No orthopnea no PND. Patient apparently when she got up was having issues with word finding and was slurring her words. Did not know where she was. At that point the emergency room was contacted and 911 was sent. She has not had an issue with her blood pressure. By the time she got done with the emergency room and was admitted she would completely cleared all symptoms. She had had no numbness no tingling no issues with walking. It was all related to speech. She was having no swallowing problems. Today she is feeling back to normal. She has no other significant new changes. Discharge Providers Provider Date of admission: 07/27/24 17:44 Discharge Date: 07/29/24 Primary care physician: Viky Seymour MD Consults: 07/27/24 17:44 Consult to Physician Stat Comment: Consulting Provider: Viky Seymour Reason for consultation: CVA Has provider been notified: No 07/27/24 17:45 Consult to Physician Stat Comment: Consulting Provider: Quan Grover Reason for consultation: admission Has provider been notified: Yes 07/27/24 18:10 Consult to Occupational Therapy Evaluate & Treat Comment: Physician Instructions: Evaluate and treat Consult to Physical Therapy Evaluate & Treat Comment: Physician Instructions: Evaluate and Treat Discharge provider: Mitchell Mcdonald MD Summary Hospital Course Discharge Diagnosis: Left-sided CVA Hypokalemia Systolic heart failure Pericardial effusion Hypothyroidism Hyperlipidemia Hospital Course: Left-sided CVA. Patient presented with word finding and word confusion with difficulty speaking and memory loss. Patient had completely recovered by the time she left the ER but for sure by the time 12:00 p.m. had passed in the morning. Showed no definitive findings on exam. She was started on Plavix and had no further symptoms during her admission. Echo showed no valvular disease. Apparently she has a history of a patent foramen ovale. None was defined on echo at this time. MRI showed small showering left side brain. Probable middle cerebral artery. Normal carotids and normal vascular. No other changes. Telemetry showed no atrial fibrillation. Etiology of stroke is unclear. Patient was stable. PT OT evaluated. OT was wondering about possible inpatient rehab. Not sure she would gained that much from that. And will set up outpatient PT OT when seen by PCP next week. Patient otherwise seems stable. With no change. Will discontinue aspirin and continue Plavix Discharge to home. Systolic congestive heart failure. Echo shows slightly worsening ejection fraction over the last year. Did have an increase in her pericardial effusion although this is unclear. Do not believe this is related to her current stroke symptoms and I do not think she is having significant symptoms from this but I do think it needs to be evaluated by truck body builder apprentice. Will set up outpatient cardiology appointment next week. With the PCP. Pericardial effusion. Maybe what is causing or having some effect on her ejection fraction. Was present a year ago slightly worse. Etiology is unclear. This stage do not think it is causing her symptoms but certainly concerning will need to be evaluated by truck body builder apprentice. Will refer next week when she is seen by PCP. Discussed extensively. Patient understands understands Hypothyroidism. Stable on usual meds Hyperlipidemia. Stable on usual meds. Exam Vital Signs (past 8 hours): - 07/29/24 08:13 Temperature 97.8 F Pulse Rate 78 Respiratory Rate 16 Blood Pressure 142/66 H Pulse Oximetry 96 Oxygen Flow Rate 0 Oxygen Delivery Method Room Air Oxygen Flow Rate 0 Narrative Exam Narrative: Alert elderly female sitting in chair in no acute distress neurologic exam is nonfocal Objective Labs 07/29/24 06:15 07/29/24 06:15 Labs: Laboratory Results - last 24 hr 07/29/24 06:15 WBC 7.0 RBC 4.13 Hgb 13.0 Hct 38.9 MCV 94.2 MCH 31.5 MCHC 33.5 RDW 13.3 Plt Count 181 Neut % (Auto) 70.9 Lymph % (Auto) 18.6 L [place] % (Auto) 8.5 Eos % (Auto) 1.0 L Baso % (Auto) 1.0 Neut # (Auto) 5000 Lymph # (Auto) 1300 [place] # (Auto) 600 Eos # (Auto) 100 Baso # (Auto) 100 Sodium 134 L Potassium 4.1 Chloride 103 Carbon Dioxide 29 BUN 19 H Creatinine 0.70 Estimated GFR > 60 BUN/Creatinine Ratio 27.1 H Glucose 108 Calcium 9.4 Total Bilirubin 0.5 AST 38 H ALT 29 Alkaline Phosphatase 82 Total Protein 6.8 Albumin 3.8 Globulin 3.0 Albumin/Globulin Ratio 1.3 PFSH Medical History Patent foramen ovale Social History household members: spouse Smoking Status: Never smoker alcohol intake: never Discharge Assessment & Plan Assessment and Plan Assessment: Improved Plan of Treatment: Discharge home close follow-up Discharge Plan Discharge Plan Patient Disposition: Home Discharge orders & Medications Prescriptions: New clopidogrel 75 mg Tablet 75 mg PO DAILY Qty: 30 1RF Continued simvastatin [Zocor] 20 MG tablet 30 mg PO HS Qty: 0 MULTIVITAMIN (Multivitamin -) 1 cap PO EVERY DAY Qty: 0 [FLAXSEED OIL] 1 cap PO QDAY Qty: 0 calcium carbonate-vitamin D3 [Oyster Shell Calcium-Vit D3] 1,250 MG/200 IU tablet 1 tab PO BID Qty: 0 Ferrous Sulfate (Feosol) 325 mg PO Q DAY Qty: 0 atorvastatin [Lipitor] 20 MG tablet 20 mg PO QDAY Qty: 0 lutein-zeaxanthin 1 EACH capsule 1 ea PO DAILY Qty: 0 levothyroxine [Levoxyl] 112 MCG tablet 112 mcg PO QDAY Qty: 0 Discontinued aspirin [Aspir-81] 81 mg Tablet,Delayed Release (Dr/Ec) 81 mg PO DAILY Follow up/Referrals: Viky Seymour MD [Primary Care Provider] - 08/02/24 (Call for appointment please) Activity Restrictions/Additional Instructions: As tolerated with assistance Discharge Health Status Multidrug resistant organism: No MDRO Diet/Activity/Treatments Diet: Diet as Tolerated Skin/Wound/Dressing Care Report to your healthcare provider any signs of infection, such as:: chills, fever and increased pain Visit Report/Discharge Packet Stand Alone Forms: Patient Portal/API, Stroke Signs & Symptoms Discharge Data Primary Care Provider: Viky Seymour VTE Deep Vein Thrombosis/Pulmonary Embolism Present on Admission: No
[2024-07-29] MEDS: VIT C/E/ZN/COPPR/LUTEIN/ZEAXAN CAPSULE 1 CAP PO (08:52)
[2024-07-29] MEDS: CLOPIDOGREL 75 MG TABLET PO (08:52)
[2024-07-29] MEDS: POTASSIUM CHLORIDE 20 MEQ TAB PO (08:53)
[2024-07-29] MEDS: DOCUSATE 100 MG CAPSULE PO (08:53)
--- NOTE | 2024-07-29 10:14 | PC.NURSE ---
Patient is A&OX3-4, pleasant, VSS on RA. She is evaluated at bedside and cleared to discharge home per MD Mcdonald. She and verbalize understanding of new medication and follow up appointment. RN escorts pt via w/ch to private vehicle with this a.m. for discharge home at approximately 1040 a.m.
== END 2024-07-29 09:45 | disposition home or self-care (01) | DRG 65 ==
LOC: ED 17:44 → AC 17:46
PROVIDERS: Family Medicine; Admitting Provider Family Medicine; Emergency Provider Emergency Medicine; Family Provider Family Medicine; PCP Family Medicine; Referring Provider Emergency Medicine; Visit Provider Family Medicine
DX: I63.9 Cerebral infarction, unspecified (principal); I31.39 Other pericardial effusion (noninflammatory); I50.22 Chronic systolic (congestive) heart failure; R47.81 Slurred speech; E03.9 Hypothyroidism, unspecified; E78.5 Hyperlipidemia, unspecified; Z66 Do not resuscitate; E87.6 Hypokalemia; R41.3 Other amnesia; R47.89 Other speech disturbances; R29.707 NIHSS score 7; R29.706 NIHSS score 6; Z86.73 Personal history of transient ischemic attack (TIA), and cerebral infarction without residual deficits
CPT/HCPCS: 36415; 70450; 70544; 70549; 70553; 80053; 80320; 82550; 82962; 83690; 83735; 84443; 84484; 85025; 85610; 85730; 93005; 93306; 97161; 97166; 97535; 99284; 99285; A9579; J1650

== ENCOUNTER → 2024-08-03 10:54 | Outpatient (CLI) | payer MEDICARE, SELFPAY ==
[2024-07-27 18:11] VITALS: BMI 21.5
--- NOTE | 2024-08-03 10:56 | DI.RAD.S_ITS ---
PROCEDURE: XR HIP W PEL IF DONE RT 2V INDICATIONS: Pain in right hip TECHNIQUE: 2 views of the hip were acquired. COMPARISON: None. FINDINGS: Bones: Moderate bilateral hip arthrosis relatively symmetric. No acute displaced fracture or dislocation. Soft tissues: Increased fecal loading. Calcific tendinopathy greater on the right. IMPRESSION: Moderate bilateral hip arthrosis. Calcific tendinopathy appears slightly greater on the right. If there is high concern for further derangement, consider MRI evaluation. Dictated by: Mirza Kraus M.D. on 08/03/2024 at 14:47 Approved by: Mirza Kraus M.D. on 08/03/2024 at 14:48
== END ==
PROVIDERS: Family Provider Family Medicine; PCP Family Medicine; Referring Provider Family Medicine; Visit Provider Family Medicine
DX: M16.0 Bilateral primary osteoarthritis of hip (principal); M25.551 Pain in right hip; M65.852 Other synovitis and tenosynovitis, left thigh; M65.851 Other synovitis and tenosynovitis, right thigh
CPT/HCPCS: 73502

== ENCOUNTER → 2024-09-04 07:48 | Outpatient (CLI) | payer MEDICARE, SELFPAY ==
--- NOTE | 2024-09-04 07:50 | DI.MG.S_ITS ---
BILATERAL DIGITAL SCREENING MAMMOGRAM 3D/2D WITH CAD: 09/04/2024 CLINICAL: Routine screening. Comparison is made to exams dated: 08/28/2023 mammogram, 03/01/2015 mammogram, and 08/28/2011 mammogram - [facility]. The breasts are heterogeneously dense, which may obscure small masses (category c / 51-75% glandular tissue). Current study was also evaluated with a Computer Aided Detection (CAD) system. No significant masses, calcifications, or other findings are seen in either breast. There has been no significant interval change. IMPRESSION: NEGATIVE There is no mammographic evidence of malignancy. A 1 year screening mammogram is recommended. This exam was interpreted at Station ID: [id number]. NOTE: For mammograms, a report in lay terms will be sent to the patient. Approximately 15% of breast malignancies will not be visualized mammographically. In the management of a palpable breast mass, a negative mammogram must not discourage biopsy of a clinically suspicious lesion. Electronically Signed By: Kevin paitner/nury:09/05/2024 08:07:16 letter sent: Normal Exam ACR BI-RADS Category 1: Negative
== END ==
PROVIDERS: Family Provider Family Medicine; PCP Family Medicine; Referring Provider Family Medicine; Visit Provider Family Medicine
DX: Z12.31 Encounter for screening mammogram for malignant neoplasm of breast (principal); R92.333 Mammographic heterogeneous density, bilateral breasts
CPT/HCPCS: 77063; 77067

== ENCOUNTER → 2024-11-03 09:06 | Outpatient (CLI) | payer MEDICARE, SELFPAY ==
--- NOTE | 2024-11-03 09:08 | DI.ECHO.S_ITS ---
[facility] : : [id number] : [place] [address] : : [id number] : : Phone: [phone] Echocardiogram Report + + :Name: GORDO ALFRED Study Date: 11/03/2024 Height: 67 in : :[facility] ReadingLocation: Weight: 130 lb : : Gender: Female BSA: 1.7 m2 : :: 1935 Age: 89 yrs BP: 126/67 mmHg: :Reason For Study: HEART FAILURE : :Ordering Physician: JUAN DAVID, : :KELSEA Meredith Performed By: Cass Luque : :Referring: KELSEA BUTLER : + + Interpretation Summary The ejection fraction is estimated to be 45-50%. Diastolic function could not be accurately assessed due to unobtainable data. The right ventricle is normal in size and function. There is mild mitral regurgitation. There is mild aortic regurgitation. There is mild tricuspid regurgitation. The right ventricular systolic pressure is estimated to be at least 25 mmHg based on an estimated right atrial pressure of 3 mm Hg. There is a small to moderate pericardial effusion noted. There are no echocardiographic indications of cardiac tamponade. Compared to the prior study 07/28/2024, no change. Procedure: A two-dimensional transthoracic echocardiogram with color flow and Doppler was performed. The study quality was technically adequate. Comparison is made with the echocardiogram of 07/28/2024. The patient was in sinus rhythm with heart rates between 68-75 bpm during the exam. Left Ventricle: The left ventricle is normal in size and wall thickness. The ejection fraction is estimated to be 45-50%. Diastolic function could not be accurately assessed due to unobtainable data. Right Ventricle: The right ventricle is normal in size and function. Atria: The left atrial size is normal. Right atrial size is normal. There is no Doppler evidence for an interatrial shunt. Mitral Valve: The mitral valve leaflets appear borderline thickened, but open well. There is mild mitral regurgitation. Aortic Valve: The aortic valve is trileaflet. The aortic valve is moderately calcified. There is no aortic valve stenosis. There is mild aortic regurgitation. Tricuspid Valve: The tricuspid valve leaflets are thin and pliable. There is mild tricuspid regurgitation. The right ventricular systolic pressure is estimated to be at least 25 mmHg based on an estimated right atrial pressure of 3 mm Hg. Pulmonic Valve: The pulmonic valve leaflets are thin and pliable; valve motion is normal. There is mild pulmonic regurgitation. Great Vessels: The aortic root is normal size. The dimensions of the ascending aorta are normal. The IVC is of normal diameter and collapses greater than 50% with a sniff. This suggests a low right atrial pressure of 3 mm Hg. Pericardium/ Pleura There is a small to moderate pericardial effusion noted. There are no echocardiographic indications of cardiac tamponade. There is no pleural effusion. MMode/2D Measurements & Calculations LVIDd: 4.4 cm LVOT diam: 2.0 cm LVIDs: 3.1 cm Ao root diam: 3.4 cm FS: 29.5 % asc Aorta Diam: 3.5 cm IVSd: 1.1 cm Ao Arch Diam (Prox Trans): 2.9 cm LVPWd: 0.80 cm LV calixto. diameter/BSA (cm/m^2): 2.6 LV sys. diameter/BSA (cm/m^2): 1.8 LA A2 area: 16.2 cm2 RA long axis: 4.5 cm LA A4 area: 12.3 cm2 RA area: 13.0 cm2 LA length (vol): 3.8 cm RA vol: 31.5 ml LA vol: 44.5 ml RA : 18.7 ml/m2 LA vol index: 26.4 ml/m2 IVC diam: 1.3 cm RVD1 (basal): 3.2 cm RVD2 (mid): 2.5 cm TAPSE: 1.6 cm Doppler Measurements & Calculations Ao V2 max: 143.3 cm/sec LVOT Max Tyree: 79.5 cm/sec Ao V2 mean: 107.4 cm/sec LV V1 max P.5 mmHg Ao max P.2 mmHg LV V1 VTI: 17.1 cm Ao mean P.9 mmHg TIFFANY(I,D): 1.8 cm2 Ao V2 VTI: 30.7 cm TIFFANY(V,D): 1.8 cm2 sev ratio: 0.56 TIFFANY indexed to BSA (cm^2/m^2): 1.1 AI P1/2t: 495.3 msec AI dec slope: 221.0 cm/sec2 MV E max tyree: 49.7 cm/sec TR max tyree: 235.1 cm/sec MV A max tyree: 89.5 cm/sec TR max P.1 mmHg MV E/A: 0.56 PA V2 max: 81.7 cm/sec MV dec time: 0.34 sec PA V2 mean: 57.5 cm/sec PA mean P.5 mmHg PA pr(Accel): 44.3 mmHg SV(LVOT): 55.2 ml Reading Physician:01:11 PM
== END ==
PROVIDERS: Family Provider Family Medicine; PCP Family Medicine; Referring Provider Internal Medicine Cardiovascular Disease; Visit Provider Internal Medicine Cardiovascular Disease
DX: I08.3 Combined rheumatic disorders of mitral, aortic and tricuspid valves (principal); I50.22 Chronic systolic (congestive) heart failure; I31.39 Other pericardial effusion (noninflammatory)
CPT/HCPCS: 93306

== ENCOUNTER → 2024-11-07 09:08 | Outpatient (CLI) | payer MEDICARE, SELFPAY ==
--- NOTE | 2024-11-07 09:09 | DI.NM.S_ITS ---
PROCEDURE: NM GEE PERF SPECT R&S PHARM Rest and pharmacological stress myocardial perfusion SPECT with gated imaging and ejection fraction RADIOPHARMACEUTICAL: 12.1 mCi Tc-99m tetrafosmin IV at rest and 26.6 mCi Tc-99m tetrafosmin IV at peak effect of pharmacological stress. [id number] was performed. INDICATIONS: HEART FAILURE PQRS ATTESTATIONS: Measure 322 - Is this imaging test primarily performed on a low-risk surgery patient for preoperative evaluation within 30 days preceding their low-risk non-cardiac surgery? Low-risk surgery is defined as cardiac or myocardial infarction less than 1%, including (but not limited to) endoscopic procedures, superficial procedures, cataract surgery, and excisional breast surgery: Answer: No Measure 323 - Is this imaging test performed primarily for the monitoring of an asymptomatic patient who had percutaneous coronary intervention on the visit date or within 2 years of the visit date? Answer: No Measure 324 - Is this imaging test performed primarily for the initial detection and risk assessment on an asymptomatic, low coronary heart disease patient? Low CHD risk definition = clinicians should consider the maximum number of available patient factors used to estimate risk based on Dunbar (ATP III criteria), typically age, gender, diabetes, smoking status, and use of blood pressure medication, and integrate age appropriate estimates for missing elements, such as LDL or standard blood pressure. Answer: No TECHNIQUE: Radiopharmaceutical was injected at peak stress test, and also at rest. SPECT images were obtained. SPECT myocardial perfusion images were displayed in short axis, horizontal long axis, and vertical long axis views. Gated images were reviewed using [employer] software. COMPARISON: None. CARDIAC STRESS: A pharmacologic stress test was performed under the supervision of an attending staff, using an infusion of 0.4 mg of Lexiscan. Hemodynamic data: There is normal blood pressure and heart rate response to pharmacologic stress. Symptoms: The patient denied anginal chest pain. Aminophylline: None EKG: No diagnostic changes of ischemia due to baseline left bundle branch block; no ectopy. FINDINGS: Raw data: There is good myocardial uptake of radiotracer. No significant motion artifacts. Ktmf-xa-bttdp ratio is 0.27 (normal is less than 0.38 for tetrafosmin tracer). Left ventricle function: Gated images demonstrate normal left ventricular wall thickening. No segmental wall motion abnormalities. No transient ischemic dilation; TID is 0.81 (normal less than 1.3). Left ventricle resting end diastolic volume is 72 mL. Left ventricle stress ejection fraction is 81; normal range is above 45%. Myocardial perfusion: Resting images had no perfusion defects. Slight increase in subdiaphragmatic activity noted. Stress images had no perfusion defects. No prone images obtained. IMPRESSION: 1. Negative Lexiscan myocardial perfusion scan for ischemia and infarction. Dictated by: Louie Resendiz M.D. on 11/07/2024 at 16:48 Approved by: Louie Resendiz M.D. on 11/07/2024 at 16:50
== END ==
PROVIDERS: Family Provider Family Medicine; PCP Family Medicine; Referring Provider Internal Medicine Cardiovascular Disease; Visit Provider Internal Medicine Cardiovascular Disease
DX: R07.9 Chest pain, unspecified; I50.22 Chronic systolic (congestive) heart failure
CPT/HCPCS: 78452; 93017; A9502; J2785

== ENCOUNTER 2024-11-23 09:45 | Outpatient (RCR) | payer MEDICARE, SELFPAY ==
[2024-08-17 09:01] VITALS: BP 134/82; PULSE 74
--- NOTE | 2024-08-17 09:08 | PT.OIE ---
Current Diagnoses Cerebral infarction due to thrombosis of right middle cerebral artery (08/17/24) Past Medical History (Last Reviewed 07/27/24 @ 17:21 by Ernesto Schaefer DO) Patent foramen ovale Visit Care Team Role Provider Type Viky Seymour MD Attending Provider Physician Family Provider Primary Care Provider Referring Provider Specialty: Family Practice Address: [address] [place] [address], [facility] [place], [address] Email: [email or web address] Physical Therapy Initial Evaluation PT-OP-A Visit Information Start: 08/16/24 17:19 Freq: Status: Active Protocol: Document 08/17/24 09:01 [facility] (Rec: 08/17/24 09:47 SAK [id number]) Out-Patient Physical Therapy Visit Information Visit Information Visit Type Initial Evaluation Visit Start Time 09:01 Visit Stop Time 09:45 Visit Number 1 Evaluation Information Evaluation Date 08/17/24 Precautions Precautions macular degeneration; can't read PT-OP-B Current Condition Start: 08/16/24 17:19 Freq: Status: Active Protocol: Document 08/17/24 09:01 SAK (Rec: 08/17/24 09:47 SAK [id number]) Current Condition History of Current Condition Onset Date 07/27/24 Current Complaints fatigue, weakness History of Current Condition July 27 had a CVA; difficulty walking . Prior CVA 2002 affected right side. Also recent right hip pain after CVA, now not as bad, though tender to the touch. Day of CVA stayed in bed, was fatigued. At 5pm called the ambuilance because she wouldn't get out of bed. Had expressive aphasia, though resolved same day. Has vague memory of day of CVA. Now feels more tired, sleeps a lot. Drinks minimal water, history of only 1 UTI per patient. No regular exercise since the CVA. Has had PT previously but doesn't do exercises. Has fallen multiple times since CVA; 2 bad, went to doctor 1x no serious injury. Last time PT was taught how to walk with a cane but hasn't been using. won't let her go outside without help. [facility] prior to CVA, hasn't gone back yet. Treatment Goals Patient/Caregiver Goals Wants to be able to walk safely. Current Functional Impairments (Reported) Functional Limitations- ADL's takes more time, fatigued Functional Limitations- Mobility/Gait limited to indoors indep, outdoors with help. Doesn't go for walks Functional Limitations- Work/School retired Functional Limitations- Recreation/ too fatigued Hobbies PT-OP-C Subjective Start: 08/16/24 17:19 Freq: Status: Active Protocol: Document 08/17/24 09:01 [facility] (Rec: 08/23/24 08:58 [facility] [id number]) OP-PT Pain Assessment Location Right Lateral Hip Intensity 5 PT-OP-D Balance Start: 08/16/24 17:19 Freq: Status: Active Protocol: Document 08/17/24 09:01 [facility] (Rec: 08/23/24 08:57 [facility] [id number]) Schaefer Balance Assessment Evaluation Sitting to Standing Ability Independent w/Hands Unsupported Stance Supervision- 2 minutes Sitting Unsupported, Feet on Floor Safely- 2 minutes Transfer Ability Safely, Hand Use Unsupported Stance- Eyes Closed Supervision, 10 seconds Unsupported Stance- Eyes Open Supervision to maintain Reaching Forward Standing Supervision Needed Look Behind Shoulder - Standing Turns Sideways Only Turning 360 Degrees Turns , < 4 secs Unsupported Stance, Alternating Feet on 2 Steps w/Minimum Assist Stair Unsupported Tandem Stance Balance Lost- Step/Stand Unilateral Leg Stance Unable,assist to not fall Total Score Schaefer Total Score (out of 56 points) 26 PT-OP-E Functional Tests Start: 08/16/24 17:19 Freq: Status: Active Protocol: Document 08/17/24 09:01 [facility] (Rec: 08/23/24 08:57 [facility] [id number]) Functional Tests 6 Minute Walk Test Distance 1099 PT-OP-G Mobility & Gait Start: 08/16/24 17:19 Freq: Status: Active Protocol: Document 08/17/24 09:01 [facility] (Rec: 08/23/24 08:57 [facility] [id number]) OP Gait Assessment Gait Gait Assistance Required: Standby Assistance Assistive Devices Assistive Device None Gait Deviations General Gait Pattern Antalgic Stair Climbing Evaluation Evaluation Level of Assist On Stairs Standby Assistance Devices Stair Climbing Assistive Devices Left Railing,Right Railing Technique/Endurance Stair Climbing Direction Ascend and Descend Stair Climbing Technique Step Over Step Number of Steps Climbed 4 PT-OP-H Neuro Start: 08/16/24 17:19 Freq: Status: Active Protocol: Document 08/17/24 09:01 [facility] (Rec: 08/23/24 08:57 [facility] [id number]) Sensation Evaluation Gross Sensation Gross Sensation WNL Vital Signs Pulse 1 Pulse at Rest (bpm) 74 Pulse Assessment Method Palpation Blood Pressure Sitting Blood Pressure (90/60-120/80 mmHg) 134/82 H Blood Pressure Source Manual Cuff,Left Upper Extremity PT-OP-L Special Tests Start: 08/16/24 17:19 Freq: Status: Active Protocol: Document 08/17/24 09:01 [facility] (Rec: 08/23/24 08:57 [facility] [id number]) Special Tests Hip Special Tests Piriformis Test Results Negative ESTELA Test Results Negative PT-OP-M Strength Start: 08/16/24 17:19 Freq: Status: Active Protocol: Document 08/17/24 09:01 [facility] (Rec: 08/23/24 08:57 [facility] [id number]) Hip Strength Hip Manual Muscle Testing Left Flexion (L2) 4- Good- Extension (S1) 3+ Fair+ Abduction 4- Good- Adduction 4- Good- External Rotation 4- Good- Internal Rotation 4- Good- Right Flexion (L2) 3+ Fair+ Extension (S1) 3- Fair- Abduction 3+ Fair+ Adduction 3+ Fair+ External Rotation 4- Good- Knee Strength Knee Manual Muscle Testing Left Flexion (S2) 4+ Good+ Extension (L3) 4+ Good+ Right Flexion (S2) 4 Good Extension (L3) 4 Good Ankle/Foot Strength Ankle and Foot Manual Muscle Testing Left Dorsiflexion (L4) 4 Good Plantarflexion (S1) 4 Good Right Dorsiflexion (L4) 4+ Good+ Plantarflexion (S1) 4- Good- PT-OP-Q Treatments Start: 08/16/24 17:19 Freq: Status: Active Protocol: Document 08/17/24 09:01 [facility] (Rec: 08/23/24 08:57 [facility] [id number]) Self-Care/Home Management Treatment Education Patient Education Home Exercise Program,Safety Other Education find old HEP, bring to next PT session. Importance of regular exercise. PT-OP-T Assessment and Plan Start: 08/16/24 17:19 Freq: Status: Active Protocol: Document 08/17/24 09:01 [facility] (Rec: 08/17/24 09:47 [facility] [id number]) Physical Therapy Assessment Rehab Potential Rehabilitation Potential Good Evaluation Complexity Number of Personal Factors/Comorbidities 1-2 Number of Body Systems Impaired 3 Clinical Presentation at Evaluation Evolving Impairments Impairments Activity Tolerance,Balance, Functional Mobility,Strength Goals right hip pain Impairment right lateral hip pain 5/10 pain scale Mcfp Goal (LTG) Decrease pain to no greater than 2/10 as measure of decreased pain and improved right hip function LTG Duration 10/15/24 activity tolerance Impairment 6 min walk test 1099 ft Preschool Assistant Principal Goal (LTG) Improve 6 min walk test to at least 1300 ft. LTG Duration 10/15/24 strength Impairment impaired functional LE strength stephania; 5x sit to stand 23 sec with use of rea Mcfp Goal (LTG) Improve functional LE strength as evidenced by patient able to move from sit to stand 5x in no more than 10 seconds without UE assist and be able to perform a floor transfer independently Dynamic balance Impairment impaired dynamic balance, unable to stand on 1 foot Preschool Assistant Principal Goal (LTG) Patient will improve dynamic balance and safety as measured by ability to balance on 1 foot for at least 10 seconds Assessment Summary Assessment Patient presents to PT s/p CVA with fatigue, weakness, decreased balance. She has been seen previously at this clinic for PT. Not currently participating in any regular exercise program, reports too fatigued. Additionally she has history of right hip pain which has worsened recently for no known reason. Feel she would benefit highly from PT to help her improve her strength, balance, activity tolerance, decrease her hip pain and return to prior level of function and improve her safety and independence. POC was discussed and she was in agreement. Physical Therapy Plan Frequency and Duration Frequency of Treatment 2x/Week Duration of treatment (weeks) 8 Plan of Care Start Date 08/17/24 Plan of Care End Date 10/15/24 Therapeutic Interventions Therapeutic Interventions Balance Training,Home Exercise Program,Neuromuscular Re- education,Patient/Caregiver Education,Self-Care/Home Management,Therapeutic Activities,Therapeutic Exercises Modalities Cold Pack/Ice Massage,Hot Packs Next Visit Focus/Plan Next Note Type Treatment Note Next Visit Plan Initiate therapeutic exercise for LE strengthening, functional retraining, and balance. Issue written HEP
--- NOTE | 2024-08-17 09:09 | PT.OPPOC ---
Physical, Occupational & Speech Therapy At [facility] Current Diagnoses Cerebral infarction due to thrombosis of right middle cerebral artery (08/17/24) Visit Care Team Role Provider Type Viky Seymour MD Attending Provider Physician Family Provider Primary Care Provider Referring Provider Specialty: Family Practice Address: [address] [place] [address], [facility] [place], [address] Email: [email or web address] Plan Of Care PT-OP-B Current Condition Start: 08/16/24 17:19 Freq: Status: Active Protocol: Document 08/17/24 09:01 SAK (Rec: 08/17/24 09:47 SAK [id number]) Current Condition History of Current Condition Onset Date 07/27/24 Current Complaints fatigue, weakness History of Current Condition July 27 had a CVA; difficulty walking . Prior CVA 2002 affected right side. Also recent right hip pain after CVA, now not as bad, though tender to the touch. Day of CVA stayed in bed, was fatigued. At 5pm called the ambuilance because she wouldn't get out of bed. Had expressive aphasia, though resolved same day. Has vague memory of day of CVA. Now feels more tired, sleeps a lot. Drinks minimal water, history of only 1 UTI per patient. No regular exercise since the CVA. Has had PT previously but doesn't do exercises. Has fallen multiple times since CVA; 2 bad, went to doctor 1x no serious injury. Last time PT was taught how to walk with a cane but hasn't been using. won't let her go outside without help. Was going to exercise class at [employer] [place] prior to CVA, hasn't gone back yet. Treatment Goals Patient/Caregiver Goals Wants to be able to walk safely. Current Functional Impairments (Reported) Functional Limitations- ADL's takes more time, fatigued Functional Limitations- Mobility/Gait limited to indoors indep, outdoors with help. Doesn't go for walks Functional Limitations- Work/School retired Functional Limitations- Recreation/ too fatigued Hobbies PT-OP-T Assessment and Plan Start: 08/16/24 17:19 Freq: Status: Active Protocol: Document 08/17/24 09:01 KEESHA (Rec: 08/17/24 09:47 [facility] [id number]) Physical Therapy Assessment Rehab Potential Rehabilitation Potential Good Evaluation Complexity Number of Personal Factors/Comorbidities 1-2 Number of Body Systems Impaired 3 Clinical Presentation at Evaluation Evolving Impairments Impairments Activity Tolerance,Balance, Functional Mobility,Strength Goals right hip pain Impairment right lateral hip pain 5/10 pain scale [employer] Goal (LTG) Decrease pain to no greater than 2/10 as measure of decreased pain and improved right hip function LTG Duration 10/15/24 activity tolerance Impairment 6 min walk test 1099 ft Alf Goal (LTG) Improve 6 min walk test to at least 1300 ft. LTG Duration 10/15/24 strength Impairment impaired functional LE strength stephania; 5x sit to stand 23 sec with use of rea Alf Goal (LTG) Improve functional LE strength as evidenced by patient able to move from sit to stand 5x in no more than 10 seconds without UE assist and be able to perform a floor transfer independently Dynamic balance Impairment impaired dynamic balance, unable to stand on 1 foot Alf Goal (LTG) Patient will improve dynamic balance and safety as measured by ability to balance on 1 foot for at least 10 seconds Assessment Summary Assessment Patient presents to PT s/p CVA with fatigue, weakness, decreased balance. She has been seen previously at this clinic for PT. Not currently participating in any regular exercise program, reports too fatigued. Additionally she has history of right hip pain which has worsened recently for no known reason. Feel she would benefit highly from PT to help her improve her strength, balance, activity tolerance, decrease her hip pain and return to prior level of function and improve her safety and independence. POC was discussed and she was in agreement. Physical Therapy Plan Frequency and Duration Frequency of Treatment 2x/Week Duration of treatment (weeks) 8 Plan of Care Start Date 08/17/24 Plan of Care End Date 10/15/24 Therapeutic Interventions Therapeutic Interventions Balance Training,Home Exercise Program,Neuromuscular Re- education,Patient/Caregiver Education,Self-Care/Home Management,Therapeutic Activities,Therapeutic Exercises Modalities Cold Pack/Ice Massage,Hot Packs Next Visit Focus/Plan Next Note Type Treatment Note Next Visit Plan Initiate therapeutic exercise for LE strengthening, functional retraining, and balance. Issue written HEP Plan of Care Dates Plan of Care Start Date 08/17/24 Plan of Care End Date 10/15/24 Electronically Signed by: Briana Vela, PT 08/23/24 0909 If you are in agreement with this Plan of Care, please return a signed and dated copy. I have reviewed this Plan of Care and certify that the skilled therapy services above are required to meet the patient?s needs. Physician Signature Date Printed Name and Credentials Clinical Instructor Signature Printed Name and Credentials
--- NOTE | 2024-08-23 12:23 | PT.OTN ---
Current Diagnoses Cerebral infarction due to thrombosis of right middle cerebral artery (08/23/24) Physical Therapy Treatment Note PT-OP-A Visit Information Start: 08/16/24 17:19 Freq: Status: Active Protocol: Document 08/23/24 11:33 SAK (Rec: 08/23/24 12:23 [facility] [id number]) Out-Patient Physical Therapy Visit Information Visit Information Visit Type Treatment Note Visit Start Time 11:33 Evaluation Information Evaluation Date 08/23/24 PT-OP-B Current Condition Start: 08/16/24 17:19 Freq: Status: Active Protocol: Document 08/23/24 11:33 SAK (Rec: 08/23/24 12:23 [facility] [id number]) Current Condition History of Current Condition Onset Date 07/27/24 Current Complaints fatigue, weakness History of Current Condition July 27 had a CVA; difficulty walking . Prior CVA 2002 affected right side. Also recent right hip pain after CVA, now not as bad, though tender to the touch. Day of CVA stayed in bed, was fatigued. At 5pm called the ambuilance because she wouldn't get out of bed. Had expressive aphasia, though resolved same day. Has vague memory of day of CVA. Now feels more tired, sleeps a lot. Drinks minimal water, history of only 1 UTI per patient. No regular exercise since the CVA. Has had PT previously but doesn't do exercises. Has fallen multiple times since CVA; 2 bad, went to doctor 1x no serious injury. Last time PT was taught how to walk with a cane but hasn't been using. won't let her go outside without help. Was going to exercise class at [employer] prior to CVA, hasn't gone back yet. PT-OP-C Subjective Start: 08/16/24 17:19 Freq: Status: Active Protocol: Document 08/23/24 11:33 SAK (Rec: 08/23/24 12:23 [facility] [id number]) OP-PT Subjective Patient Comments Patient Comments Hasn't done a whole lot of exercise due to soreting through tax info then too tired. Brought prior exercise handouts. Has a floor leg respiratory therapy director, has started using again. PT-OP-D Balance Start: 08/16/24 17:19 Freq: Status: Active Protocol: Document 08/17/24 09:01 [facility] (Rec: 08/23/24 08:57 [facility] [id number]) Schaefer Balance Assessment Evaluation Sitting to Standing Ability Independent w/Hands Unsupported Stance Supervision- 2 minutes Sitting Unsupported, Feet on Floor Safely- 2 minutes Transfer Ability Safely, Hand Use Unsupported Stance- Eyes Closed Supervision, 10 seconds Unsupported Stance- Eyes Open Supervision to maintain Reaching Forward Standing Supervision Needed Look Behind Shoulder - Standing Turns Sideways Only Turning 360 Degrees Turns , < 4 secs Unsupported Stance, Alternating Feet on 2 Steps w/Minimum Assist Stair Unsupported Tandem Stance Balance Lost- Step/Stand Unilateral Leg Stance Unable,assist to not fall Total Score Schaefer Total Score (out of 56 points) 26 PT-OP-E Functional Tests Start: 08/16/24 17:19 Freq: Status: Active Protocol: Document 08/17/24 09:01 [facility] (Rec: 08/23/24 08:57 [facility] [id number]) Functional Tests 6 Minute Walk Test Distance 1099 PT-OP-G Mobility & Gait Start: 08/16/24 17:19 Freq: Status: Active Protocol: Document 08/17/24 09:01 [facility] (Rec: 08/23/24 08:57 [facility] [id number]) OP Gait Assessment Gait Gait Assistance Required: Standby Assistance Assistive Devices Assistive Device None Gait Deviations General Gait Pattern Antalgic Stair Climbing Evaluation Evaluation Level of Assist On Stairs Standby Assistance Devices Stair Climbing Assistive Devices Left Railing,Right Railing Technique/Endurance Stair Climbing Direction Ascend and Descend Stair Climbing Technique Step Over Step Number of Steps Climbed 4 PT-OP-H Neuro Start: 08/16/24 17:19 Freq: Status: Active Protocol: Document 08/17/24 09:01 [facility] (Rec: 08/23/24 08:57 [facility] [id number]) Sensation Evaluation Gross Sensation Gross Sensation WNL Vital Signs Pulse 1 Pulse at Rest (bpm) 74 Pulse Assessment Method Palpation Blood Pressure Sitting Blood Pressure (90/60-120/80 mmHg) 134/82 H Blood Pressure Source Manual Cuff,Left Upper Extremity PT-OP-L Special Tests Start: 08/16/24 17:19 Freq: Status: Active Protocol: Document 08/17/24 09:01 [facility] (Rec: 08/23/24 08:57 [facility] [id number]) Special Tests Hip Special Tests Piriformis Test Results Negative ESTELA Test Results Negative PT-OP-M Strength Start: 08/16/24 17:19 Freq: Status: Active Protocol: Document 08/17/24 09:01 [facility] (Rec: 08/23/24 08:57 [facility] [id number]) Hip Strength Hip Manual Muscle Testing Left Flexion (L2) 4- Good- Extension (S1) 3+ Fair+ Abduction 4- Good- Adduction 4- Good- External Rotation 4- Good- Internal Rotation 4- Good- Right Flexion (L2) 3+ Fair+ Extension (S1) 3- Fair- Abduction 3+ Fair+ Adduction 3+ Fair+ External Rotation 4- Good- Knee Strength Knee Manual Muscle Testing Left Flexion (S2) 4+ Good+ Extension (L3) 4+ Good+ Right Flexion (S2) 4 Good Extension (L3) 4 Good Ankle/Foot Strength Ankle and Foot Manual Muscle Testing Left Dorsiflexion (L4) 4 Good Plantarflexion (S1) 4 Good Right Dorsiflexion (L4) 4+ Good+ Plantarflexion (S1) 4- Good- PT-OP-Q Treatments Start: 08/16/24 17:19 Freq: Status: Active Protocol: Document 08/23/24 11:33 [facility] (Rec: 08/23/24 12:23 [facility] [id number]) Cardio Equipment Recumbent Stepper (Sci-Fit) Duration (Minutes) 5 Resistance 1 Seat Position 10 Therapeutic Exercises Sitting Exercises LAQ Reps/Minutes 10x march Reps/Minutes 10x SIT TO STAND Reps/Minutes 5X2 Comments cues for min UE use Standing Exercises heel raise Equipment Used parallel bars Reps/Minutes 10X Comments cues for slow, UE support as needed Neuro Re-Education Treatment Balance Activities tandem balance Surface firm Equipment parallel bars Reps/Duration 4x alternating front foot x 30 sec single leg balance Surface firm Equipment parallel bars Reps/Duration 4x ea x 10 sec Comments min to mod UE support from bar PT-OP-T Assessment and Plan Start: 08/16/24 17:19 Freq: Status: Active Protocol: Document 08/23/24 11:33 [facility] (Rec: 08/23/24 12:23 [facility] [id number]) Physical Therapy Assessment Goals right hip pain Impairment right lateral hip pain 5/10 pain scale [employer] Representative Goal (LTG) Decrease pain to no greater than 2/10 as measure of decreased pain and improved right hip function LTG Duration 10/15/24 activity tolerance Impairment 6 min walk test 1099 ft Prison Goal (LTG) Improve 6 min walk test to at least 1300 ft. LTG Duration 10/15/24 strength Impairment impaired functional LE strength stephania; 5x sit to stand 23 sec with use of rea Prison Goal (LTG) Improve functional LE strength as evidenced by patient able to move from sit to stand 5x in no more than 10 seconds without UE assist and be able to perform a floor transfer independently Dynamic balance Impairment impaired dynamic balance, unable to stand on 1 foot Impairment DGI ; FGA 07/25 Prison Goal (LTG) Patient will improve dynamic balance and safety as measured by ability to balance on 1 foot for at least 10 seconds Assessment Summary Assessment Patient tolerated ther ex well with occasional rests. Issued large type written instructions for HEP (saved in word as Viky's Exercises) . Physical Therapy Plan Frequency and Duration Frequency of Treatment 2x/Week Duration of treatment (weeks) 8 Plan of Care Start Date 08/17/24 Plan of Care End Date 10/15/24 Therapeutic Interventions Therapeutic Interventions Balance Training,Home Exercise Program,Neuromuscular Re- education,Patient/Caregiver Education,Self-Care/Home Management,Therapeutic Activities,Therapeutic Exercises Modalities Cold Pack/Ice Massage,Hot Packs Next Visit Focus/Plan Next Note Type Treatment Note Next Visit Plan Progression of ex as tolerated .
--- NOTE | 2024-08-31 12:23 | PT.OTN ---
Current Diagnoses Cerebral infarction due to thrombosis of right middle cerebral artery (08/31/24) Physical Therapy Treatment Note PT-OP-A Visit Information Start: 08/16/24 17:19 Freq: Status: Active Protocol: Document 08/31/24 11:32 SAK (Rec: 08/31/24 12:23 [facility] [id number]) Out-Patient Physical Therapy Visit Information Visit Information Visit Type Treatment Note Visit Start Time 11:32 Visit Stop Time 12:16 Visit Number 3 Evaluation Information Evaluation Date 08/23/24 Precautions Precautions macular degeneration; can't read PT-OP-B Current Condition Start: 08/16/24 17:19 Freq: Status: Active Protocol: Document 08/31/24 11:32 SAK (Rec: 08/31/24 12:23 [facility] [id number]) Current Condition History of Current Condition Onset Date 07/27/24 Current Complaints fatigue, weakness History of Current Condition July 27 had a CVA; difficulty walking . Prior CVA 2002 affected right side. Also recent right hip pain after CVA, now not as bad, though tender to the touch. Day of CVA stayed in bed, was fatigued. At 5pm called the ambuilance because she wouldn't get out of bed. Had expressive aphasia, though resolved same day. Has vague memory of day of CVA. Now feels more tired, sleeps a lot. Drinks minimal water, history of only 1 UTI per patient. No regular exercise since the CVA. Has had PT previously but doesn't do exercises. Has fallen multiple times since CVA; 2 bad, went to doctor 1x no serious injury. Last time PT was taught how to walk with a cane but hasn't been using. won't let her go outside without help. Was going to exercise class at [employer] prior to CVA, hasn't gone back yet. PT-OP-C Subjective Start: 08/16/24 17:19 Freq: Status: Active Protocol: Document 08/31/24 11:32 SAK (Rec: 08/31/24 12:23 [facility] [id number]) OP-PT Subjective Patient Comments Patient Comments Has done some HEP, also today did Sit and be Fit exercise program online. PT-OP-D Balance Start: 08/16/24 17:19 Freq: Status: Active Protocol: Document 08/17/24 09:01 SAK (Rec: 08/23/24 08:57 [facility] [id number]) Schaefer Balance Assessment Evaluation Sitting to Standing Ability Independent w/Hands Unsupported Stance Supervision- 2 minutes Sitting Unsupported, Feet on Floor Safely- 2 minutes Transfer Ability Safely, Hand Use Unsupported Stance- Eyes Closed Supervision, 10 seconds Unsupported Stance- Eyes Open Supervision to maintain Reaching Forward Standing Supervision Needed Look Behind Shoulder - Standing Turns Sideways Only Turning 360 Degrees Turns , < 4 secs Unsupported Stance, Alternating Feet on 2 Steps w/Minimum Assist Stair Unsupported Tandem Stance Balance Lost- Step/Stand Unilateral Leg Stance Unable,assist to not fall Total Score Schaefer Total Score (out of 56 points) 26 PT-OP-E Functional Tests Start: 08/16/24 17:19 Freq: Status: Active Protocol: Document 08/17/24 09:01 [facility] (Rec: 08/23/24 08:57 [facility] [id number]) Functional Tests 6 Minute Walk Test Distance 1099 PT-OP-G Mobility & Gait Start: 08/16/24 17:19 Freq: Status: Active Protocol: Document 08/17/24 09:01 [facility] (Rec: 08/23/24 08:57 [facility] [id number]) OP Gait Assessment Gait Gait Assistance Required: Standby Assistance Assistive Devices Assistive Device None Gait Deviations General Gait Pattern Antalgic Stair Climbing Evaluation Evaluation Level of Assist On Stairs Standby Assistance Devices Stair Climbing Assistive Devices Left Railing,Right Railing Technique/Endurance Stair Climbing Direction Ascend and Descend Stair Climbing Technique Step Over Step Number of Steps Climbed 4 PT-OP-H Neuro Start: 08/16/24 17:19 Freq: Status: Active Protocol: Document 08/17/24 09:01 [facility] (Rec: 08/23/24 08:57 [facility] [id number]) Sensation Evaluation Gross Sensation Gross Sensation WNL Vital Signs Pulse 1 Pulse at Rest (bpm) 74 Pulse Assessment Method Palpation Blood Pressure Sitting Blood Pressure (90/60-120/80 mmHg) 134/82 H Blood Pressure Source Manual Cuff,Left Upper Extremity PT-OP-L Special Tests Start: 08/16/24 17:19 Freq: Status: Active Protocol: Document 08/17/24 09:01 [facility] (Rec: 08/23/24 08:57 [facility] [id number]) Special Tests Hip Special Tests Piriformis Test Results Negative ESTELA Test Results Negative PT-OP-M Strength Start: 08/16/24 17:19 Freq: Status: Active Protocol: Document 08/17/24 09:01 [facility] (Rec: 08/23/24 08:57 [facility] [id number]) Hip Strength Hip Manual Muscle Testing Left Flexion (L2) 4- Good- Extension (S1) 3+ Fair+ Abduction 4- Good- Adduction 4- Good- External Rotation 4- Good- Internal Rotation 4- Good- Right Flexion (L2) 3+ Fair+ Extension (S1) 3- Fair- Abduction 3+ Fair+ Adduction 3+ Fair+ External Rotation 4- Good- Knee Strength Knee Manual Muscle Testing Left Flexion (S2) 4+ Good+ Extension (L3) 4+ Good+ Right Flexion (S2) 4 Good Extension (L3) 4 Good Ankle/Foot Strength Ankle and Foot Manual Muscle Testing Left Dorsiflexion (L4) 4 Good Plantarflexion (S1) 4 Good Right Dorsiflexion (L4) 4+ Good+ Plantarflexion (S1) 4- Good- PT-OP-Q Treatments Start: 08/16/24 17:19 Freq: Status: Active Protocol: Document 08/31/24 11:32 [facility] (Rec: 08/31/24 12:23 [facility] [id number]) Cardio Equipment Recumbent Stepper (Sci-Fit) Duration (Minutes) 8 Resistance 2-4 Seat Position 10 Therapeutic Exercises Sitting Exercises LAQ Resistance 2# Reps/Minutes 10x5 september Resistance 2# Reps/Minutes 10x SIT TO STAND Reps/Minutes 5X2 Comments cues for min UE use Standing Exercises standing march Resistance 2# Reps/Minutes 10x heel raise Resistance 2# Equipment Used parallel bars Reps/Minutes 10X Comments cues for slow, UE support as needed Neuro Re-Education Treatment Balance Activities tiltboard Details bal and wt shift fwd/bck, side Surface tiltboard Reps/Duration 1 min bal, 10x weight shifts sidestepping Reps/Duration 10x3 forward september, bck walk Equipment 2# Reps/Duration 10 ft x 4 tandem balance Surface firm Equipment parallel bars Reps/Duration 4x alternating front foot x 30 sec single leg balance Surface firm Equipment parallel bars Reps/Duration 4x ea x 10 sec Comments min to mod UE support from bar Self-Care/Home Management Treatment Education Patient Education Home Exercise Program,Safety Other Education updated large print HEP HO adding standing september PT-OP-T Assessment and Plan Start: 08/16/24 17:19 Freq: Status: Active Protocol: Document 08/31/24 11:32 SAK (Rec: 08/31/24 12:23 SAK [id number]) Physical Therapy Assessment Goals right hip pain Impairment right lateral hip pain 5/10 pain scale Long-Term Goal (LTG) Decrease pain to no greater than 2/10 as measure of decreased pain and improved right hip function LTG Duration 10/15/24 activity tolerance Impairment 6 min walk test 1099 ft Long-Term Goal (LTG) Improve 6 min walk test to at least 1300 ft. LTG Duration 10/15/24 strength Impairment impaired functional LE strength stephania; 5x sit to stand 23 sec with use of rea Pulmonology Physician Goal (LTG) Improve functional LE strength as evidenced by patient able to move from sit to stand 5x in no more than 10 seconds without UE assist and be able to perform a floor transfer independently Dynamic balance Impairment impaired dynamic balance, unable to stand on 1 foot Impairment DGI ; FGA 07/25 Pulmonology Physician Goal (LTG) Patient will improve dynamic balance and safety as measured by ability to balance on 1 foot for at least 10 seconds Assessment Summary Assessment Good tolerance for increased resistance on Sci-Fit, addition of 2# weights seated and standing strengthening and bal. Patient doing Sit and Be Fit ex program at home. Physical Therapy Plan Frequency and Duration Frequency of Treatment 2x/Week Duration of treatment (weeks) 8 Plan of Care Start Date 08/17/24 Plan of Care End Date 10/15/24 Therapeutic Interventions Therapeutic Interventions Balance Training,Home Exercise Program,Neuromuscular Re- education,Patient/Caregiver Education,Self-Care/Home Management,Therapeutic Activities,Therapeutic Exercises Modalities Cold Pack/Ice Massage,Hot Packs Next Visit Focus/Plan Next Note Type Treatment Note Next Visit Plan Progress to shuttle balance activities.
--- NOTE | 2024-09-05 11:31 | PT.OTN ---
Current Diagnoses Cerebral infarction due to thrombosis of right middle cerebral artery (09/05/24) Physical Therapy Treatment Note PT-OP-A Visit Information Start: 08/16/24 17:19 Freq: Status: Active Protocol: Document 09/05/24 10:46 SAK (Rec: 09/05/24 11:31 [facility] [id number]) Out-Patient Physical Therapy Visit Information Visit Information Visit Type Treatment Note Visit Start Time 10:47 Visit Number 4 Evaluation Information Evaluation Date 08/23/24 Precautions Precautions macular degeneration; can't read PT-OP-B Current Condition Start: 08/16/24 17:19 Freq: Status: Active Protocol: Document 09/05/24 10:46 SAK (Rec: 09/05/24 11:31 [facility] [id number]) Current Condition History of Current Condition Onset Date 07/27/24 Current Complaints fatigue, weakness History of Current Condition July 27 had a CVA; difficulty walking . Prior CVA 2002 affected right side. Also recent right hip pain after CVA, now not as bad, though tender to the touch. Day of CVA stayed in bed, was fatigued. At 5pm called the ambuilance because she wouldn't get out of bed. Had expressive aphasia, though resolved same day. Has vague memory of day of CVA. Now feels more tired, sleeps a lot. Drinks minimal water, history of only 1 UTI per patient. No regular exercise since the CVA. Has had PT previously but doesn't do exercises. Has fallen multiple times since CVA; 2 bad, went to doctor 1x no serious injury. Last time PT was taught how to walk with a cane but hasn't been using. won't let her go outside without help. Was going to exercise class at [employer] prior to CVA, hasn't gone back yet. PT-OP-C Subjective Start: 08/16/24 17:19 Freq: Status: Active Protocol: Document 09/05/24 10:46 SAK (Rec: 09/05/24 11:31 [facility] [id number]) OP-PT Subjective Patient Comments Patient Comments Worried about pending mammogram results PT-OP-D Balance Start: 08/16/24 17:19 Freq: Status: Active Protocol: Document 08/17/24 09:01 SAK (Rec: 08/23/24 08:57 [facility] [id number]) Schaefer Balance Assessment Evaluation Sitting to Standing Ability Independent w/Hands Unsupported Stance Supervision- 2 minutes Sitting Unsupported, Feet on Floor Safely- 2 minutes Transfer Ability Safely, Hand Use Unsupported Stance- Eyes Closed Supervision, 10 seconds Unsupported Stance- Eyes Open Supervision to maintain Reaching Forward Standing Supervision Needed Look Behind Shoulder - Standing Turns Sideways Only Turning 360 Degrees Turns , < 4 secs Unsupported Stance, Alternating Feet on 2 Steps w/Minimum Assist Stair Unsupported Tandem Stance Balance Lost- Step/Stand Unilateral Leg Stance Unable,assist to not fall Total Score Schaefer Total Score (out of 56 points) 26 PT-OP-E Functional Tests Start: 08/16/24 17:19 Freq: Status: Active Protocol: Document 08/17/24 09:01 [facility] (Rec: 08/23/24 08:57 [facility] [id number]) Functional Tests 6 Minute Walk Test Distance 1099 PT-OP-G Mobility & Gait Start: 08/16/24 17:19 Freq: Status: Active Protocol: Document 08/17/24 09:01 [facility] (Rec: 08/23/24 08:57 [facility] [id number]) OP Gait Assessment Gait Gait Assistance Required: Standby Assistance Assistive Devices Assistive Device None Gait Deviations General Gait Pattern Antalgic Stair Climbing Evaluation Evaluation Level of Assist On Stairs Standby Assistance Devices Stair Climbing Assistive Devices Left Railing,Right Railing Technique/Endurance Stair Climbing Direction Ascend and Descend Stair Climbing Technique Step Over Step Number of Steps Climbed 4 PT-OP-H Neuro Start: 08/16/24 17:19 Freq: Status: Active Protocol: Document 08/17/24 09:01 [facility] (Rec: 08/23/24 08:57 [facility] [id number]) Sensation Evaluation Gross Sensation Gross Sensation WNL Vital Signs Pulse 1 Pulse at Rest (bpm) 74 Pulse Assessment Method Palpation Blood Pressure Sitting Blood Pressure (90/60-120/80 mmHg) 134/82 H Blood Pressure Source Manual Cuff,Left Upper Extremity PT-OP-L Special Tests Start: 08/16/24 17:19 Freq: Status: Active Protocol: Document 08/17/24 09:01 [facility] (Rec: 08/23/24 08:57 [facility] [id number]) Special Tests Hip Special Tests Piriformis Test Results Negative ESTELA Test Results Negative PT-OP-M Strength Start: 08/16/24 17:19 Freq: Status: Active Protocol: Document 08/17/24 09:01 [facility] (Rec: 08/23/24 08:57 [facility] [id number]) Hip Strength Hip Manual Muscle Testing Left Flexion (L2) 4- Good- Extension (S1) 3+ Fair+ Abduction 4- Good- Adduction 4- Good- External Rotation 4- Good- Internal Rotation 4- Good- Right Flexion (L2) 3+ Fair+ Extension (S1) 3- Fair- Abduction 3+ Fair+ Adduction 3+ Fair+ External Rotation 4- Good- Knee Strength Knee Manual Muscle Testing Left Flexion (S2) 4+ Good+ Extension (L3) 4+ Good+ Right Flexion (S2) 4 Good Extension (L3) 4 Good Ankle/Foot Strength Ankle and Foot Manual Muscle Testing Left Dorsiflexion (L4) 4 Good Plantarflexion (S1) 4 Good Right Dorsiflexion (L4) 4+ Good+ Plantarflexion (S1) 4- Good- PT-OP-Q Treatments Start: 08/16/24 17:19 Freq: Status: Active Protocol: Document 09/05/24 10:46 [facility] (Rec: 09/05/24 11:31 [facility] [id number]) Cardio Equipment Recumbent Stepper (Sci-Fit) Duration (Minutes) 8 Resistance 2-4 Seat Position 10 Gym Equipment Shuttle Balance shuttle balance Details red chains, bal and wt shift f /b,side, shuffle Reps/Duration visual scanning and head turns Comments CGA, mod use of UE's on bars Therapeutic Exercises Sitting Exercises LAQ Resistance 3# Reps/Minutes 10x5 SIT TO STAND Reps/Minutes 5X2 Comments no UE use Standing Exercises hip abd Equipment Used 3# Reps/Minutes 10x standing march Resistance 3# Reps/Minutes 10x heel raise Resistance 3# Equipment Used parallel bars Reps/Minutes 10X Comments cues for slow, UE support as needed Self-Care/Home Management Treatment Education Patient Education Home Exercise Program,Safety PT-OP-T Assessment and Plan Start: 08/16/24 17:19 Freq: Status: Active Protocol: Document 09/05/24 10:46 [facility] (Rec: 09/05/24 11:31 [facility] [id number]) Physical Therapy Assessment Goals right hip pain Impairment right lateral hip pain 5/10 pain scale Intermediate Goal (LTG) Decrease pain to no greater than 2/10 as measure of decreased pain and improved right hip function LTG Duration 10/15/24 activity tolerance Impairment 6 min walk test 1099 ft Intermediate Goal (LTG) Improve 6 min walk test to at least 1300 ft. LTG Duration 10/15/24 strength Impairment impaired functional LE strength stephania; 5x sit to stand 23 sec with use of rea Environmental Officer Goal (LTG) Improve functional LE strength as evidenced by patient able to move from sit to stand 5x in no more than 10 seconds without UE assist and be able to perform a floor transfer independently Dynamic balance Impairment impaired dynamic balance, unable to stand on 1 foot Impairment DGI ; FGA 07/25 Intermediate Goal (LTG) Patient will improve dynamic balance and safety as measured by ability to balance on 1 foot for at least 10 seconds Assessment Summary Assessment Increased weight to 3# on LE's , added shuttle balance. LOw compliance to HEP, patient not able to take walks due to vision and noone to go with her. Physical Therapy Plan Frequency and Duration Frequency of Treatment 2x/Week Duration of treatment (weeks) 8 Plan of Care Start Date 08/17/24 Plan of Care End Date 10/15/24 Therapeutic Interventions Therapeutic Interventions Balance Training,Home Exercise Program,Neuromuscular Re- education,Patient/Caregiver Education,Self-Care/Home Management,Therapeutic Activities,Therapeutic Exercises Modalities Cold Pack/Ice Massage,Hot Packs Next Visit Focus/Plan Next Note Type Treatment Note Next Visit Plan Continue to progress strengthening, balance, gait in continued recovery from CVA .
--- NOTE | 2024-09-07 10:32 | PT.OTN ---
Current Diagnoses Cerebral infarction due to thrombosis of right middle cerebral artery (09/07/24) Physical Therapy Treatment Note PT-OP-A Visit Information Start: 08/16/24 17:19 Freq: Status: Active Protocol: Document 09/07/24 09:54 [facility] (Rec: 09/07/24 10:40 [facility] [id number]) Out-Patient Physical Therapy Visit Information Visit Information Visit Type Treatment Note Visit Start Time 09:54 Visit Stop Time 10:32 Visit Number 5 Number of FACILITY ADMINISTRATOR Visits 1 Evaluation Information Evaluation Date 08/23/24 Precautions Precautions macular degeneration; can't read PT-OP-B Current Condition Start: 08/16/24 17:19 Freq: Status: Active Protocol: Document 09/05/24 10:46 [facility] (Rec: 09/05/24 11:31 [facility] [id number]) Current Condition History of Current Condition Onset Date 07/27/24 Current Complaints fatigue, weakness History of Current Condition July 27 had a CVA; difficulty walking . Prior CVA 2002 affected right side. Also recent right hip pain after CVA, now not as bad, though tender to the touch. Day of CVA stayed in bed, was fatigued. At 5pm called the ambuilance because she wouldn't get out of bed. Had expressive aphasia, though resolved same day. Has vague memory of day of CVA. Now feels more tired, sleeps a lot. Drinks minimal water, history of only 1 UTI per patient. No regular exercise since the CVA. Has had PT previously but doesn't do exercises. Has fallen multiple times since CVA; 2 bad, went to doctor 1x no serious injury. Last time PT was taught how to walk with a cane but hasn't been using. won't let her go outside without help. Was going to exercise class at [employer] prior to CVA, hasn't gone back yet. PT-OP-C Subjective Start: 08/16/24 17:19 Freq: Status: Active Protocol: Document 09/07/24 09:54 [facility] (Rec: 09/07/24 10:40 [facility] [id number]) OP-PT Subjective Patient Comments Patient Comments Pt reports is as compliant with HEP. [place] ok after after last tx. PT-OP-D Balance Start: 08/16/24 17:19 Freq: Status: Active Protocol: Document 08/17/24 09:01 [facility] (Rec: 08/23/24 08:57 [facility] [id number]) Schaefer Balance Assessment Evaluation Sitting to Standing Ability Independent w/Hands Unsupported Stance Supervision- 2 minutes Sitting Unsupported, Feet on Floor Safely- 2 minutes Transfer Ability Safely, Hand Use Unsupported Stance- Eyes Closed Supervision, 10 seconds Unsupported Stance- Eyes Open Supervision to maintain Reaching Forward Standing Supervision Needed Look Behind Shoulder - Standing Turns Sideways Only Turning 360 Degrees Turns , < 4 secs Unsupported Stance, Alternating Feet on 2 Steps w/Minimum Assist Stair Unsupported Tandem Stance Balance Lost- Step/Stand Unilateral Leg Stance Unable,assist to not fall Total Score Schaefer Total Score (out of 56 points) 26 PT-OP-E Functional Tests Start: 08/16/24 17:19 Freq: Status: Active Protocol: Document 08/17/24 09:01 [facility] (Rec: 08/23/24 08:57 [facility] [id number]) Functional Tests 6 Minute Walk Test Distance 1099 PT-OP-G Mobility & Gait Start: 08/16/24 17:19 Freq: Status: Active Protocol: Document 08/17/24 09:01 [facility] (Rec: 08/23/24 08:57 [facility] [id number]) OP Gait Assessment Gait Gait Assistance Required: Standby Assistance Assistive Devices Assistive Device None Gait Deviations General Gait Pattern Antalgic Stair Climbing Evaluation Evaluation Level of Assist On Stairs Standby Assistance Devices Stair Climbing Assistive Devices Left Railing,Right Railing Technique/Endurance Stair Climbing Direction Ascend and Descend Stair Climbing Technique Step Over Step Number of Steps Climbed 4 PT-OP-H Neuro Start: 08/16/24 17:19 Freq: Status: Active Protocol: Document 08/17/24 09:01 [facility] (Rec: 08/23/24 08:57 [facility] [id number]) Sensation Evaluation Gross Sensation Gross Sensation WNL Vital Signs Pulse 1 Pulse at Rest (bpm) 74 Pulse Assessment Method Palpation Blood Pressure Sitting Blood Pressure (90/60-120/80 mmHg) 134/82 H Blood Pressure Source Manual Cuff,Left Upper Extremity PT-OP-L Special Tests Start: 08/16/24 17:19 Freq: Status: Active Protocol: Document 08/17/24 09:01 [facility] (Rec: 08/23/24 08:57 [facility] [id number]) Special Tests Hip Special Tests Piriformis Test Results Negative ESTELA Test Results Negative PT-OP-M Strength Start: 08/16/24 17:19 Freq: Status: Active Protocol: Document 08/17/24 09:01 [facility] (Rec: 08/23/24 08:57 [facility] [id number]) Hip Strength Hip Manual Muscle Testing Left Flexion (L2) 4- Good- Extension (S1) 3+ Fair+ Abduction 4- Good- Adduction 4- Good- External Rotation 4- Good- Internal Rotation 4- Good- Right Flexion (L2) 3+ Fair+ Extension (S1) 3- Fair- Abduction 3+ Fair+ Adduction 3+ Fair+ External Rotation 4- Good- Knee Strength Knee Manual Muscle Testing Left Flexion (S2) 4+ Good+ Extension (L3) 4+ Good+ Right Flexion (S2) 4 Good Extension (L3) 4 Good Ankle/Foot Strength Ankle and Foot Manual Muscle Testing Left Dorsiflexion (L4) 4 Good Plantarflexion (S1) 4 Good Right Dorsiflexion (L4) 4+ Good+ Plantarflexion (S1) 4- Good- PT-OP-Q Treatments Start: 08/16/24 17:19 Freq: Status: Active Protocol: Document 09/07/24 09:54 [facility] (Rec: 09/07/24 10:40 [facility] [id number]) Gym Equipment Shuttle Balance shuttle balance Details red chains, bal and wt shift f /b,side, shuffle Reps/Duration visual scanning and head turns Comments CGA-5% stride RLE fwd, CG-Mod L ft fwd f/b, CG- 5%A lateral, min use of UE's on bars Therapeutic Exercises Sitting Exercises hip abduction Sitting Exercise Name trialed inPT Side bilateral Resistance TB #3 [place] Reps/Minutes 30 SH x2 LAQ Resistance 4# leg wt Reps/Minutes 20 reps alternating, 5 reps 5 hold Comments cued TKE, improved with reps Standing Exercises gastroc/soleus stretch Standing Exercise Name added to HEP /c HO Side bilateral Reps/Minutes 20 SH each LE, each position Comments hands on wall, cued head/shld up Gait Training Gait Activity dynamic gait Description Forward HTs, backward walking Distance/Duration hallway 2 laps fwd HTs, backward 20 ft near rail Comments cued increase MARY, allow arm swing- improved self postural corrections midline PT-OP-T Assessment and Plan Start: 08/16/24 17:19 Freq: Status: Active Protocol: Document 09/07/24 09:54 [facility] (Rec: 09/07/24 10:40 [facility] [id number]) Physical Therapy Assessment Goals right hip pain Impairment right lateral hip pain 5/10 pain scale Intermediate Goal (LTG) Decrease pain to no greater than 2/10 as measure of decreased pain and improved right hip function LTG Duration 10/15/24 activity tolerance Impairment 6 min walk test 1099 ft Accounts Specialist Goal (LTG) Improve 6 min walk test to at least 1300 ft. LTG Duration 10/15/24 strength Impairment impaired functional LE strength stephania; 5x sit to stand 23 sec with use of rea Intermediate Goal (LTG) Improve functional LE strength as evidenced by patient able to move from sit to stand 5x in no more than 10 seconds without UE assist and be able to perform a floor transfer independently Dynamic balance Impairment impaired dynamic balance, unable to stand on 1 foot Impairment DGI ; FGA 07/25 Accounts Specialist Goal (LTG) Patient will improve dynamic balance and safety as measured by ability to balance on 1 foot for at least 10 seconds Assessment Summary Assessment Pt improved decrease UE support during shuttle balance , cues or postural wt shift for midline f/b/lateral stability and carryover dynamic walking with cues for allowance arm swing. Initiated calf stretch to support improve more fwd COG on shuttle balance noted. Physical Therapy Plan Frequency and Duration Frequency of Treatment 2x/Week Duration of treatment (weeks) 8 Plan of Care Start Date 08/17/24 Plan of Care End Date 10/15/24 Therapeutic Interventions Therapeutic Interventions Balance Training,Home Exercise Program,Neuromuscular Re- education,Patient/Caregiver Education,Self-Care/Home Management,Therapeutic Activities,Therapeutic Exercises Modalities Cold Pack/Ice Massage,Hot Packs Next Visit Focus/Plan Next Note Type Treatment Note Next Visit Plan Recheck calf strech added & other HEP. POC: Continue to progress strengthening, balance, gait in continued recovery from CVA .
--- NOTE | 2024-09-12 12:15 | PT.OTN ---
Current Diagnoses Cerebral infarction due to thrombosis of right middle cerebral artery (09/12/24) Physical Therapy Treatment Note PT-OP-A Visit Information Start: 08/16/24 17:19 Freq: Status: Active Protocol: Document 09/12/24 11:35 SP (Rec: 09/12/24 12:24 SP [id number]) Out-Patient Physical Therapy Visit Information Visit Information Visit Type Treatment Note Visit Start Time 11:35 Visit Stop Time 12:15 Visit Number 6 Number of DEVOPS ENGINEER Visits 2 Evaluation Information Evaluation Date 08/23/24 Precautions Precautions macular degeneration; can't read, light sensitivity PT-OP-B Current Condition Start: 08/16/24 17:19 Freq: Status: Active Protocol: Document 09/05/24 10:46 SAK (Rec: 09/05/24 11:31 SAK [id number]) Current Condition History of Current Condition Onset Date 07/27/24 Current Complaints fatigue, weakness History of Current Condition July 27 had a CVA; difficulty walking . Prior CVA 2002 affected right side. Also recent right hip pain after CVA, now not as bad, though tender to the touch. Day of CVA stayed in bed, was fatigued. At 5pm called the ambuilance because she wouldn't get out of bed. Had expressive aphasia, though resolved same day. Has vague memory of day of CVA. Now feels more tired, sleeps a lot. Drinks minimal water, history of only 1 UTI per patient. No regular exercise since the CVA. Has had PT previously but doesn't do exercises. Has fallen multiple times since CVA; 2 bad, went to doctor 1x no serious injury. Last time PT was taught how to walk with a cane but hasn't been using. won't let her go outside without help. Was going to exercise class at [employer] prior to CVA, hasn't gone back yet. PT-OP-C Subjective Start: 08/16/24 17:19 Freq: Status: Active Protocol: Document 09/12/24 11:35 SP (Rec: 09/12/24 12:24 SP [id number]) OP-PT Subjective Patient Comments Patient Comments Pt reports was little tired took a nap but felt did ok after last tx. PT-OP-D Balance Start: 08/16/24 17:19 Freq: Status: Active Protocol: Document 08/17/24 09:01 [facility] (Rec: 08/23/24 08:57 [facility] [id number]) Schaefer Balance Assessment Evaluation Sitting to Standing Ability Independent w/Hands Unsupported Stance Supervision- 2 minutes Sitting Unsupported, Feet on Floor Safely- 2 minutes Transfer Ability Safely, Hand Use Unsupported Stance- Eyes Closed Supervision, 10 seconds Unsupported Stance- Eyes Open Supervision to maintain Reaching Forward Standing Supervision Needed Look Behind Shoulder - Standing Turns Sideways Only Turning 360 Degrees Turns , < 4 secs Unsupported Stance, Alternating Feet on 2 Steps w/Minimum Assist Stair Unsupported Tandem Stance Balance Lost- Step/Stand Unilateral Leg Stance Unable,assist to not fall Total Score Schaefer Total Score (out of 56 points) 26 PT-OP-E Functional Tests Start: 08/16/24 17:19 Freq: Status: Active Protocol: Document 08/17/24 09:01 [facility] (Rec: 08/23/24 08:57 [facility] [id number]) Functional Tests 6 Minute Walk Test Distance 1099 PT-OP-G Mobility & Gait Start: 08/16/24 17:19 Freq: Status: Active Protocol: Document 08/17/24 09:01 [facility] (Rec: 08/23/24 08:57 [facility] [id number]) OP Gait Assessment Gait Gait Assistance Required: Standby Assistance Assistive Devices Assistive Device None Gait Deviations General Gait Pattern Antalgic Stair Climbing Evaluation Evaluation Level of Assist On Stairs Standby Assistance Devices Stair Climbing Assistive Devices Left Railing,Right Railing Technique/Endurance Stair Climbing Direction Ascend and Descend Stair Climbing Technique Step Over Step Number of Steps Climbed 4 PT-OP-H Neuro Start: 08/16/24 17:19 Freq: Status: Active Protocol: Document 08/17/24 09:01 [facility] (Rec: 08/23/24 08:57 [facility] [id number]) Sensation Evaluation Gross Sensation Gross Sensation WNL Vital Signs Pulse 1 Pulse at Rest (bpm) 74 Pulse Assessment Method Palpation Blood Pressure Sitting Blood Pressure (90/60-120/80 mmHg) 134/82 H Blood Pressure Source Manual Cuff,Left Upper Extremity PT-OP-L Special Tests Start: 08/16/24 17:19 Freq: Status: Active Protocol: Document 08/17/24 09:01 [facility] (Rec: 08/23/24 08:57 [facility] [id number]) Special Tests Hip Special Tests Piriformis Test Results Negative ESTELA Test Results Negative PT-OP-M Strength Start: 08/16/24 17:19 Freq: Status: Active Protocol: Document 08/17/24 09:01 SAK (Rec: 08/23/24 08:57 [facility] [id number]) Hip Strength Hip Manual Muscle Testing Left Flexion (L2) 4- Good- Extension (S1) 3+ Fair+ Abduction 4- Good- Adduction 4- Good- External Rotation 4- Good- Internal Rotation 4- Good- Right Flexion (L2) 3+ Fair+ Extension (S1) 3- Fair- Abduction 3+ Fair+ Adduction 3+ Fair+ External Rotation 4- Good- Knee Strength Knee Manual Muscle Testing Left Flexion (S2) 4+ Good+ Extension (L3) 4+ Good+ Right Flexion (S2) 4 Good Extension (L3) 4 Good Ankle/Foot Strength Ankle and Foot Manual Muscle Testing Left Dorsiflexion (L4) 4 Good Plantarflexion (S1) 4 Good Right Dorsiflexion (L4) 4+ Good+ Plantarflexion (S1) 4- Good- PT-OP-Q Treatments Start: 08/16/24 17:19 Freq: Status: Active Protocol: Document 09/12/24 11:35 SP (Rec: 09/12/24 12:24 SP [id number]) Cardio Equipment Recumbent Stepper (Sci-Fit) Duration (Minutes) 8 Resistance 2-4 (window shade pulled) Seat Position 11 Other BUEs& BLEs, 0.8 miles Gym Equipment Shuttle Recovery Unilateral Squats Details cued slower pacing eccentric control Resistance 62# (2 navy bands) Shuttle Recovery Platform Stable Reps/Time 8 R, 12 L Bilateral Squats Details good slower pacing Resistance 75# (3 navy bands) Shuttle Recovery Platform Stable Reps/Time 20 Shuttle Balance shuttle balance Details red chains, bal and wt shift f /b,side Reps/Duration visual scanning and head turns Comments CGA-5%A lateral Min/Mod% A F/b max cues for fwd COG Therapeutic Exercises Standing Exercises resisted stepping Standing Exercise Name trialed in PT Resistance Tb #3 around shins Equipment Used rail light glide 1 UE Reps/Minutes 15 ft x2 laps Comments cues for light contact and eccentric trail LE return together gastroc/soleus stretch Standing Exercise Name reviewed (on shuttle bal board 09/12/24) Side bilateral Reps/Minutes 20 SH each LE, each position Comments cued wt shift fwd, tends lean back- next tx perform at wall Neuro Re-Education Treatment Balance Activities uneven surface Details fwd receiprocal steppin hurdles on mat over uneven surface Surface mat over foam stone x2, 1 NAIMA. Comments CG- 5%A, cues for increase step height and trail> lead foot DF clearance. - toe catches kaden trail> lead foot Min A recovery, improves with cues for DF, slower pacing. PT-OP-T Assessment and Plan Start: 08/16/24 17:19 Freq: Status: Active Protocol: Document 09/12/24 11:35 SP (Rec: 09/12/24 12:24 SP [id number]) Physical Therapy Assessment Goals right hip pain Impairment right lateral hip pain 5/10 pain scale Museum Educator Goal (LTG) Decrease pain to no greater than 2/10 as measure of decreased pain and improved right hip function LTG Duration 10/15/24 activity tolerance Impairment 6 min walk test 1099 ft Museum Educator Goal (LTG) Improve 6 min walk test to at least 1300 ft. LTG Duration 10/15/24 strength Impairment impaired functional LE strength stephania; 5x sit to stand 23 sec with use of rea Museum Educator Goal (LTG) Improve functional LE strength as evidenced by patient able to move from sit to stand 5x in no more than 10 seconds without UE assist and be able to perform a floor transfer independently Dynamic balance Impairment impaired dynamic balance, unable to stand on 1 foot Impairment DGI 14; FGA 07/25 Museum Educator Goal (LTG) Patient will improve dynamic balance and safety as measured by ability to balance on 1 foot for at least 10 seconds Assessment Summary Assessment Pt had good tolerance to progression resisted stepping today for strengthening and uneven surface walking CG/ Min A, cues for mechanics foot clearance. Challenged maintaining fwd COG on shuttle bal today forward/backward, increased Min/Mod A. Physical Therapy Plan Frequency and Duration Frequency of Treatment 2x/Week Duration of treatment (weeks) 8 Plan of Care Start Date 08/17/24 Plan of Care End Date 10/15/24 Therapeutic Interventions Therapeutic Interventions Balance Training,Home Exercise Program,Neuromuscular Re- education,Patient/Caregiver Education,Self-Care/Home Management,Therapeutic Activities,Therapeutic Exercises Modalities Cold Pack/Ice Massage,Hot Packs Next Visit Focus/Plan Next Note Type Treatment Note Next Visit Plan Ask response to progressed uneven mat walk and resisted stepping in PT. POC: Continue to progress strengthening, balance, gait in continued recovery from CVA .
--- NOTE | 2024-09-19 10:35 | PT.OTN ---
Current Diagnoses Cerebral infarction due to thrombosis of right middle cerebral artery (09/19/24) Physical Therapy Treatment Note PT-OP-A Visit Information Start: 08/16/24 17:19 Freq: Status: Active Protocol: Document 09/19/24 09:45 SAK (Rec: 09/19/24 10:35 [facility] [id number]) Out-Patient Physical Therapy Visit Information Visit Information Visit Type Treatment Note Visit Start Time 09:46 Visit Stop Time 10:26 Visit Number 8 Number of FINANCIAL EXAMINER Visits 0 Evaluation Information Evaluation Date 08/23/24 Precautions Precautions macular degeneration; can't read, light sensitivity PT-OP-B Current Condition Start: 08/16/24 17:19 Freq: Status: Active Protocol: Document 09/19/24 09:45 SAK (Rec: 09/19/24 10:35 [facility] [id number]) Current Condition History of Current Condition Onset Date 07/27/24 Current Complaints fatigue, weakness History of Current Condition July 27 had a CVA; difficulty walking . Prior CVA 2002 affected right side. Also recent right hip pain after CVA, now not as bad, though tender to the touch. Day of CVA stayed in bed, was fatigued. At 5pm called the ambuilance because she wouldn't get out of bed. Had expressive aphasia, though resolved same day. Has vague memory of day of CVA. Now feels more tired, sleeps a lot. Drinks minimal water, history of only 1 UTI per patient. No regular exercise since the CVA. Has had PT previously but doesn't do exercises. Has fallen multiple times since CVA; 2 bad, went to doctor 1x no serious injury. Last time PT was taught how to walk with a cane but hasn't been using. won't let her go outside without help. Was going to exercise class at [employer] [place] prior to CVA, hasn't gone back yet. PT-OP-C Subjective Start: 08/16/24 17:19 Freq: Status: Active Protocol: Document 09/19/24 09:45 SAK (Rec: 09/19/24 10:35 [facility] [id number]) OP-PT Subjective Patient Comments Patient Comments No new c/o, continues to bandage right arm after slipping and tearing skin. PT-OP-D Balance Start: 08/16/24 17:19 Freq: Status: Active Protocol: Document 08/17/24 09:01 [facility] (Rec: 08/23/24 08:57 [facility] [id number]) Schaefer Balance Assessment Evaluation Sitting to Standing Ability Independent w/Hands Unsupported Stance Supervision- 2 minutes Sitting Unsupported, Feet on Floor Safely- 2 minutes Transfer Ability Safely, Hand Use Unsupported Stance- Eyes Closed Supervision, 10 seconds Unsupported Stance- Eyes Open Supervision to maintain Reaching Forward Standing Supervision Needed Look Behind Shoulder - Standing Turns Sideways Only Turning 360 Degrees Turns , < 4 secs Unsupported Stance, Alternating Feet on 2 Steps w/Minimum Assist Stair Unsupported Tandem Stance Balance Lost- Step/Stand Unilateral Leg Stance Unable,assist to not fall Total Score Schaefer Total Score (out of 56 points) 26 PT-OP-E Functional Tests Start: 08/16/24 17:19 Freq: Status: Active Protocol: Document 08/17/24 09:01 [facility] (Rec: 08/23/24 08:57 [facility] [id number]) Functional Tests 6 Minute Walk Test Distance 1099 PT-OP-G Mobility & Gait Start: 08/16/24 17:19 Freq: Status: Active Protocol: Document 08/17/24 09:01 [facility] (Rec: 08/23/24 08:57 [facility] [id number]) OP Gait Assessment Gait Gait Assistance Required: Standby Assistance Assistive Devices Assistive Device None Gait Deviations General Gait Pattern Antalgic Stair Climbing Evaluation Evaluation Level of Assist On Stairs Standby Assistance Devices Stair Climbing Assistive Devices Left Railing,Right Railing Technique/Endurance Stair Climbing Direction Ascend and Descend Stair Climbing Technique Step Over Step Number of Steps Climbed 4 PT-OP-H Neuro Start: 08/16/24 17:19 Freq: Status: Active Protocol: Document 08/17/24 09:01 [facility] (Rec: 08/23/24 08:57 [facility] [id number]) Sensation Evaluation Gross Sensation Gross Sensation WNL Vital Signs Pulse 1 Pulse at Rest (bpm) 74 Pulse Assessment Method Palpation Blood Pressure Sitting Blood Pressure (90/60-120/80 mmHg) 134/82 H Blood Pressure Source Manual Cuff,Left Upper Extremity PT-OP-L Special Tests Start: 08/16/24 17:19 Freq: Status: Active Protocol: Document 08/17/24 09:01 [facility] (Rec: 08/23/24 08:57 [facility] [id number]) Special Tests Hip Special Tests Piriformis Test Results Negative ESTELA Test Results Negative PT-OP-M Strength Start: 08/16/24 17:19 Freq: Status: Active Protocol: Document 08/17/24 09:01 [facility] (Rec: 08/23/24 08:57 [facility] [id number]) Hip Strength Hip Manual Muscle Testing Left Flexion (L2) 4- Good- Extension (S1) 3+ Fair+ Abduction 4- Good- Adduction 4- Good- External Rotation 4- Good- Internal Rotation 4- Good- Right Flexion (L2) 3+ Fair+ Extension (S1) 3- Fair- Abduction 3+ Fair+ Adduction 3+ Fair+ External Rotation 4- Good- Knee Strength Knee Manual Muscle Testing Left Flexion (S2) 4+ Good+ Extension (L3) 4+ Good+ Right Flexion (S2) 4 Good Extension (L3) 4 Good Ankle/Foot Strength Ankle and Foot Manual Muscle Testing Left Dorsiflexion (L4) 4 Good Plantarflexion (S1) 4 Good Right Dorsiflexion (L4) 4+ Good+ Plantarflexion (S1) 4- Good- PT-OP-Q Treatments Start: 08/16/24 17:19 Freq: Status: Active Protocol: Document 09/19/24 09:45 [facility] (Rec: 09/19/24 10:35 [facility] [id number]) Cardio Equipment Recumbent Stepper (Sci-Fit) Duration (Minutes) 10 Resistance 2-4 (window shade pulled) Seat Position 11 Other BUEs& BLEs, 0.9 miles Gym Equipment Shuttle Recovery Unilateral Squats Details cued slower pacing eccentric control Resistance 62# (2 navy bands) Shuttle Recovery Platform Stable Reps/Time 8 R, 12 L Bilateral Squats Details good slower pacing Resistance 75# (3 navy bands) Shuttle Recovery Platform Stable Reps/Time 20 Shuttle Balance 2 Details blue>red Comments balloon volleyball CGA, occasional pt use of bar with blue, frequent to constant with red Therapeutic Exercises Sitting Exercises hip abduction Sitting Exercise Name trialed inPT Side bilateral Resistance TB #3 [place] Reps/Minutes 10x5, 1 min Standing Exercises resisted stepping Resistance Tb #3 around shins Equipment Used rail light glide 1 UE Reps/Minutes 15 ft x2 laps Comments cues for light contact and eccentric trail LE return together gastroc/soleus stretch Side bilateral Equipment Used NAIMA Reps/Minutes 30 SH each LE, each position Neuro Re-Education Treatment Balance Activities BOSU Details balance, step-ups Reps/Duration 4 min Comments max 4 sec bal without UE's, frequent use of UE's for balance with bal, requires use of UE's for step-ups uneven surface Details fwd receiprocal steppin hurdles on mat over uneven surface, 6 box Reps/Duration 8x Comments CG- A, cues for increase step height and trail> lead foot DF clearance. - R toe catches kaden trail> lead foot Min A recovery, improves with cues for DF, slower pacing. PT-OP-T Assessment and Plan Start: 08/16/24 17:19 Freq: Status: Active Protocol: Document 09/19/24 09:45 [facility] (Rec: 09/19/24 10:35 [facility] [id number]) Physical Therapy Assessment Goals right hip pain Impairment right lateral hip pain 5/10 pain scale Prison Goal (LTG) Decrease pain to no greater than 2/10 as measure of decreased pain and improved right hip function LTG Duration 10/15/24 activity tolerance Impairment 6 min walk test 1099 ft Prison Goal (LTG) Improve 6 min walk test to at least 1300 ft. LTG Duration 10/15/24 strength Impairment impaired functional LE strength stephania; 5x sit to stand 23 sec with use of rea Digital Sales Planner Goal (LTG) Improve functional LE strength as evidenced by patient able to move from sit to stand 5x in no more than 10 seconds without UE assist and be able to perform a floor transfer independently Dynamic balance Impairment impaired dynamic balance, unable to stand on 1 foot Impairment DGI ; FGA 07/25 Digital Sales Planner Goal (LTG) Patient will improve dynamic balance and safety as measured by ability to balance on 1 foot for at least 10 seconds Assessment Summary Assessment More difficulty with obstacle course with hurdles, caught feet about 50% of hurdles requ min to mod assist for balance . Improved bal on shuttle balance, progressed to red chains. Physical Therapy Plan Frequency and Duration Frequency of Treatment 2x/Week Duration of treatment (weeks) 8 Plan of Care Start Date 08/17/24 Plan of Care End Date 10/15/24 Therapeutic Interventions Therapeutic Interventions Balance Training,Home Exercise Program,Neuromuscular Re- education,Patient/Caregiver Education,Self-Care/Home Management,Therapeutic Activities,Therapeutic Exercises Modalities Cold Pack/Ice Massage,Hot Packs Next Visit Focus/Plan Next Note Type Treatment Note Next Visit Plan Continue challenged gait, progressive strengthening, balance, gait.
--- NOTE | 2024-09-19 10:36 | PT.OTN ---
Current Diagnoses Cerebral infarction due to thrombosis of right middle cerebral artery (09/19/24) Physical Therapy Treatment Note PT-OP-A Visit Information Start: 08/16/24 17:19 Freq: Status: Active Protocol: Document 09/19/24 09:45 SAK (Rec: 09/19/24 10:35 [facility] [id number]) Out-Patient Physical Therapy Visit Information Visit Information Visit Type Treatment Note Visit Start Time 09:46 Visit Stop Time 10:26 Visit Number 8 Number of LINING SETTER Visits 0 Evaluation Information Evaluation Date 08/23/24 Precautions Precautions macular degeneration; can't read, light sensitivity PT-OP-B Current Condition Start: 08/16/24 17:19 Freq: Status: Active Protocol: Document 09/19/24 09:45 SAK (Rec: 09/19/24 10:35 [facility] [id number]) Current Condition History of Current Condition Onset Date 07/27/24 Current Complaints fatigue, weakness History of Current Condition July 27 had a CVA; difficulty walking . Prior CVA 2002 affected right side. Also recent right hip pain after CVA, now not as bad, though tender to the touch. Day of CVA stayed in bed, was fatigued. At 5pm called the ambuilance because she wouldn't get out of bed. Had expressive aphasia, though resolved same day. Has vague memory of day of CVA. Now feels more tired, sleeps a lot. Drinks minimal water, history of only 1 UTI per patient. No regular exercise since the CVA. Has had PT previously but doesn't do exercises. Has fallen multiple times since CVA; 2 bad, went to doctor 1x no serious injury. Last time PT was taught how to walk with a cane but hasn't been using. won't let her go outside without help. Was going to exercise class at [employer] [place] prior to CVA, hasn't gone back yet. PT-OP-C Subjective Start: 08/16/24 17:19 Freq: Status: Active Protocol: Document 09/19/24 09:45 SAK (Rec: 09/19/24 10:35 [facility] [id number]) OP-PT Subjective Patient Comments Patient Comments No new c/o, continues to bandage right arm after slipping and tearing skin. PT-OP-D Balance Start: 08/16/24 17:19 Freq: Status: Active Protocol: Document 08/17/24 09:01 [facility] (Rec: 08/23/24 08:57 [facility] [id number]) Schaefer Balance Assessment Evaluation Sitting to Standing Ability Independent w/Hands Unsupported Stance Supervision- 2 minutes Sitting Unsupported, Feet on Floor Safely- 2 minutes Transfer Ability Safely, Hand Use Unsupported Stance- Eyes Closed Supervision, 10 seconds Unsupported Stance- Eyes Open Supervision to maintain Reaching Forward Standing Supervision Needed Look Behind Shoulder - Standing Turns Sideways Only Turning 360 Degrees Turns , < 4 secs Unsupported Stance, Alternating Feet on 2 Steps w/Minimum Assist Stair Unsupported Tandem Stance Balance Lost- Step/Stand Unilateral Leg Stance Unable,assist to not fall Total Score Schaefer Total Score (out of 56 points) 26 PT-OP-E Functional Tests Start: 08/16/24 17:19 Freq: Status: Active Protocol: Document 08/17/24 09:01 [facility] (Rec: 08/23/24 08:57 [facility] [id number]) Functional Tests 6 Minute Walk Test Distance 1099 PT-OP-G Mobility & Gait Start: 08/16/24 17:19 Freq: Status: Active Protocol: Document 08/17/24 09:01 [facility] (Rec: 08/23/24 08:57 [facility] [id number]) OP Gait Assessment Gait Gait Assistance Required: Standby Assistance Assistive Devices Assistive Device None Gait Deviations General Gait Pattern Antalgic Stair Climbing Evaluation Evaluation Level of Assist On Stairs Standby Assistance Devices Stair Climbing Assistive Devices Left Railing,Right Railing Technique/Endurance Stair Climbing Direction Ascend and Descend Stair Climbing Technique Step Over Step Number of Steps Climbed 4 PT-OP-H Neuro Start: 08/16/24 17:19 Freq: Status: Active Protocol: Document 08/17/24 09:01 [facility] (Rec: 08/23/24 08:57 [facility] [id number]) Sensation Evaluation Gross Sensation Gross Sensation WNL Vital Signs Pulse 1 Pulse at Rest (bpm) 74 Pulse Assessment Method Palpation Blood Pressure Sitting Blood Pressure (90/60-120/80 mmHg) 134/82 H Blood Pressure Source Manual Cuff,Left Upper Extremity PT-OP-L Special Tests Start: 08/16/24 17:19 Freq: Status: Active Protocol: Document 08/17/24 09:01 [facility] (Rec: 08/23/24 08:57 [facility] [id number]) Special Tests Hip Special Tests Piriformis Test Results Negative ESTELA Test Results Negative PT-OP-M Strength Start: 08/16/24 17:19 Freq: Status: Active Protocol: Document 08/17/24 09:01 [facility] (Rec: 08/23/24 08:57 [facility] [id number]) Hip Strength Hip Manual Muscle Testing Left Flexion (L2) 4- Good- Extension (S1) 3+ Fair+ Abduction 4- Good- Adduction 4- Good- External Rotation 4- Good- Internal Rotation 4- Good- Right Flexion (L2) 3+ Fair+ Extension (S1) 3- Fair- Abduction 3+ Fair+ Adduction 3+ Fair+ External Rotation 4- Good- Knee Strength Knee Manual Muscle Testing Left Flexion (S2) 4+ Good+ Extension (L3) 4+ Good+ Right Flexion (S2) 4 Good Extension (L3) 4 Good Ankle/Foot Strength Ankle and Foot Manual Muscle Testing Left Dorsiflexion (L4) 4 Good Plantarflexion (S1) 4 Good Right Dorsiflexion (L4) 4+ Good+ Plantarflexion (S1) 4- Good- PT-OP-Q Treatments Start: 08/16/24 17:19 Freq: Status: Active Protocol: Document 09/19/24 09:45 [facility] (Rec: 09/19/24 10:35 [facility] [id number]) Cardio Equipment Recumbent Stepper (Sci-Fit) Duration (Minutes) 10 Resistance 2-4 (window shade pulled) Seat Position 11 Other BUEs& BLEs, 0.9 miles Gym Equipment Shuttle Recovery Unilateral Squats Details cued slower pacing eccentric control Resistance 62# (2 navy bands) Shuttle Recovery Platform Stable Reps/Time 8 R, 12 L Bilateral Squats Details good slower pacing Resistance 75# (3 navy bands) Shuttle Recovery Platform Stable Reps/Time 20 Shuttle Balance 2 Details blue>red Comments balloon volleyball CGA, occasional pt use of bar with blue, frequent to constant with red Therapeutic Exercises Sitting Exercises hip abduction Sitting Exercise Name trialed inPT Side bilateral Resistance TB #3 [place] green Reps/Minutes 10x5, 1 min Standing Exercises resisted stepping Resistance Tb #3 around shins Equipment Used rail light glide 1 UE Reps/Minutes 15 ft x2 laps Comments cues for light contact and eccentric trail LE return together gastroc/soleus stretch Side bilateral Equipment Used NAIMA Reps/Minutes 30 SH each LE, each position Neuro Re-Education Treatment Balance Activities BOSU Details balance, step-ups Reps/Duration 4 min Comments max 4 sec bal without UE's, frequent use of UE's for balance with bal, requires use of UE's for step-ups uneven surface Details fwd receiprocal steppin hurdles on mat over uneven surface, 6 box Reps/Duration 8x Comments CG- A, cues for increase step height and trail> lead foot DF clearance. - R toe catches kaden trail> lead foot Min A recovery, improves with cues for DF, slower pacing. PT-OP-T Assessment and Plan Start: 08/16/24 17:19 Freq: Status: Active Protocol: Document 09/19/24 09:45 [facility] (Rec: 09/19/24 10:35 [facility] [id number]) Physical Therapy Assessment Goals right hip pain Impairment right lateral hip pain 5/10 pain scale Custodial Goal (LTG) Decrease pain to no greater than 2/10 as measure of decreased pain and improved right hip function LTG Duration 10/15/24 activity tolerance Impairment 6 min walk test 1099 ft Custodial Goal (LTG) Improve 6 min walk test to at least 1300 ft. LTG Duration 10/15/24 strength Impairment impaired functional LE strength stephania; 5x sit to stand 23 sec with use of rea Storeroom Keeper Goal (LTG) Improve functional LE strength as evidenced by patient able to move from sit to stand 5x in no more than 10 seconds without UE assist and be able to perform a floor transfer independently Dynamic balance Impairment impaired dynamic balance, unable to stand on 1 foot Impairment DGI ; FGA 07/25 Storeroom Keeper Goal (LTG) Patient will improve dynamic balance and safety as measured by ability to balance on 1 foot for at least 10 seconds Assessment Summary Assessment More difficulty with obstacle course with hurdles, caught feet about 50% of hurdles requ min to mod assist for balance . Improved bal on shuttle balance, progressed to red chains. Physical Therapy Plan Frequency and Duration Frequency of Treatment 2x/Week Duration of treatment (weeks) 8 Plan of Care Start Date 08/17/24 Plan of Care End Date 10/15/24 Therapeutic Interventions Therapeutic Interventions Balance Training,Home Exercise Program,Neuromuscular Re- education,Patient/Caregiver Education,Self-Care/Home Management,Therapeutic Activities,Therapeutic Exercises Modalities Cold Pack/Ice Massage,Hot Packs Next Visit Focus/Plan Next Note Type Treatment Note Next Visit Plan Continue challenged gait, progressive strengthening, balance, gait.
--- NOTE | 2024-09-21 10:47 | PT.OTN ---
Addendum entered and electronically signed by Ivonne Badillo 09/21/24 12:43: PROGRESS NOTE DUE NEXT SESSION. Original Note: Current Diagnoses Cerebral infarction due to thrombosis of right middle cerebral artery (09/21/24) Physical Therapy Treatment Note PT-OP-A Visit Information Start: 08/16/24 17:19 Freq: Status: Active Protocol: Document 09/21/24 08:56 AB (Rec: 09/21/24 10:46 AB [id number]) Out-Patient Physical Therapy Visit Information Visit Information Visit Type Treatment Note Visit Note Access Code [id number] Visit Start Time 09:49 Visit Stop Time 10:35 Visit Number 9 Number of SENIOR TECHNICAL MANAGER Visits 1 Evaluation Information Evaluation Date 08/23/24 Precautions Precautions macular degeneration; can't read, light sensitivity PT-OP-B Current Condition Start: 08/16/24 17:19 Freq: Status: Active Protocol: Document 09/19/24 09:45 SAK (Rec: 09/19/24 10:35 SAK [id number]) Current Condition History of Current Condition Onset Date 07/27/24 Current Complaints fatigue, weakness History of Current Condition July 27 had a CVA; difficulty walking . Prior CVA 2002 affected right side. Also recent right hip pain after CVA, now not as bad, though tender to the touch. Day of CVA stayed in bed, was fatigued. At 5pm called the ambuilance because she wouldn't get out of bed. Had expressive aphasia, though resolved same day. Has vague memory of day of CVA. Now feels more tired, sleeps a lot. Drinks minimal water, history of only 1 UTI per patient. No regular exercise since the CVA. Has had PT previously but doesn't do exercises. Has fallen multiple times since CVA; 2 bad, went to doctor 1x no serious injury. Last time PT was taught how to walk with a cane but hasn't been using. won't let her go outside without help. Was going to exercise class at [employer] prior to CVA, hasn't gone back yet. PT-OP-C Subjective Start: 08/16/24 17:19 Freq: Status: Active Protocol: Document 09/21/24 08:56 AB (Rec: 09/21/24 10:46 AB [id number]) OP-PT Subjective Patient Comments Patient Comments Patient reports having no falls since previous session. Patient reports having no pain start of session. Patient reports she can only get out of the dining room chairs without UE. PT-OP-D Balance Start: 08/16/24 17:19 Freq: Status: Active Protocol: Document 08/17/24 09:01 [facility] (Rec: 08/23/24 08:57 [facility] [id number]) Schaefer Balance Assessment Evaluation Sitting to Standing Ability Independent w/Hands Unsupported Stance Supervision- 2 minutes Sitting Unsupported, Feet on Floor Safely- 2 minutes Transfer Ability Safely, Hand Use Unsupported Stance- Eyes Closed Supervision, 10 seconds Unsupported Stance- Eyes Open Supervision to maintain Reaching Forward Standing Supervision Needed Look Behind Shoulder - Standing Turns Sideways Only Turning 360 Degrees Turns , < 4 secs Unsupported Stance, Alternating Feet on 2 Steps w/Minimum Assist Stair Unsupported Tandem Stance Balance Lost- Step/Stand Unilateral Leg Stance Unable,assist to not fall Total Score Schaefer Total Score (out of 56 points) 26 PT-OP-E Functional Tests Start: 08/16/24 17:19 Freq: Status: Active Protocol: Document 08/17/24 09:01 [facility] (Rec: 08/23/24 08:57 [facility] [id number]) Functional Tests 6 Minute Walk Test Distance 1099 PT-OP-G Mobility & Gait Start: 08/16/24 17:19 Freq: Status: Active Protocol: Document 08/17/24 09:01 [facility] (Rec: 08/23/24 08:57 [facility] [id number]) OP Gait Assessment Gait Gait Assistance Required: Standby Assistance Assistive Devices Assistive Device None Gait Deviations General Gait Pattern Antalgic Stair Climbing Evaluation Evaluation Level of Assist On Stairs Standby Assistance Devices Stair Climbing Assistive Devices Left Railing,Right Railing Technique/Endurance Stair Climbing Direction Ascend and Descend Stair Climbing Technique Step Over Step Number of Steps Climbed 4 PT-OP-H Neuro Start: 08/16/24 17:19 Freq: Status: Active Protocol: Document 08/17/24 09:01 [facility] (Rec: 08/23/24 08:57 [facility] [id number]) Sensation Evaluation Gross Sensation Gross Sensation WNL Vital Signs Pulse 1 Pulse at Rest (bpm) 74 Pulse Assessment Method Palpation Blood Pressure Sitting Blood Pressure (90/60-120/80 mmHg) 134/82 H Blood Pressure Source Manual Cuff,Left Upper Extremity PT-OP-L Special Tests Start: 08/16/24 17:19 Freq: Status: Active Protocol: Document 08/17/24 09:01 SAK (Rec: 08/23/24 08:57 SAK [id number]) Special Tests Hip Special Tests Piriformis Test Results Negative ESTELA Test Results Negative PT-OP-M Strength Start: 08/16/24 17:19 Freq: Status: Active Protocol: Document 08/17/24 09:01 SAK (Rec: 08/23/24 08:57 SAK [id number]) Hip Strength Hip Manual Muscle Testing Left Flexion (L2) 4- Good- Extension (S1) 3+ Fair+ Abduction 4- Good- Adduction 4- Good- External Rotation 4- Good- Internal Rotation 4- Good- Right Flexion (L2) 3+ Fair+ Extension (S1) 3- Fair- Abduction 3+ Fair+ Adduction 3+ Fair+ External Rotation 4- Good- Knee Strength Knee Manual Muscle Testing Left Flexion (S2) 4+ Good+ Extension (L3) 4+ Good+ Right Flexion (S2) 4 Good Extension (L3) 4 Good Ankle/Foot Strength Ankle and Foot Manual Muscle Testing Left Dorsiflexion (L4) 4 Good Plantarflexion (S1) 4 Good Right Dorsiflexion (L4) 4+ Good+ Plantarflexion (S1) 4- Good- PT-OP-Q Treatments Start: 08/16/24 17:19 Freq: Status: Active Protocol: Document 09/21/24 08:56 AB (Rec: 09/21/24 10:46 AB [id number]) Therapeutic Exercises Sitting Exercises hip abduction Sitting Exercise Name HEP Side bilateral Resistance TB #3 [place] green Reps/Minutes X 15 without hold, 1 min SIT TO STAND Sitting Exercise Name HEP Reps/Minutes X10 Comments no UE use Standing Exercises resisted stepping Resistance Tb #3 around shins Equipment Used rail light glide 1 UE Reps/Minutes 15 ft x2 laps Comments cues for light contact and eccentric trail LE return together gastroc/soleus stretch Standing Exercise Name X2 on NAIMA soleus and gastro X 1 ant wall (HEP Side bilateral Equipment Used NAIMA Reps/Minutes 60 sec X 3 each LE Comments Verbal cues heel raise Standing Exercise Name HEP Equipment Used parallel bars Reps/Minutes 15X Comments cues for slow, UE support as needed Neuro Re-Education Treatment Balance Activities step up taps Details CGA hands above bars Reps/Duration X10 retro Details CGA, hands on bars first 10 feet then hands above bars Reps/Duration 10 feet X 2 wall fall Reps/Duration X8 X 2 Comments Pillow behind back close supervision tiltboard Details bal and wt shift fwd/bck, side Surface tiltboard Reps/Duration X10 hands above bars initiates with hands on bars Comments CGA tandem balance Details tandem stepping Reps/Duration 10 feet X 3 L and right CGA PT-OP-T Assessment and Plan Start: 08/16/24 17:19 Freq: Status: Active Protocol: Document 09/21/24 08:56 AB (Rec: 09/21/24 10:46 AB [id number]) Physical Therapy Assessment Goals right hip pain Impairment right lateral hip pain 5/10 pain scale Rubber Attacher Goal (LTG) Decrease pain to no greater than 2/10 as measure of decreased pain and improved right hip function LTG Duration 10/15/24 activity tolerance Impairment 6 min walk test 1099 ft Mcfp Goal (LTG) Improve 6 min walk test to at least 1300 ft. LTG Duration 10/15/24 strength Impairment impaired functional LE strength stephania; 5x sit to stand 23 sec with use of rea Mcfp Goal (LTG) Improve functional LE strength as evidenced by patient able to move from sit to stand 5x in no more than 10 seconds without UE assist and be able to perform a floor transfer independently Dynamic balance Impairment impaired dynamic balance, unable to stand on 1 foot Impairment DGI 1424; FGA 07/25 Rubber Attacher Goal (LTG) Patient will improve dynamic balance and safety as measured by ability to balance on 1 foot for at least 10 seconds Assessment Summary Assessment SLS w/o UE use increased from 1 sec to 3 sec L and right LE post glute med activation. Viky reporjosé antonio having no pain end of session. Physical Therapy Plan Frequency and Duration Frequency of Treatment 2x/Week Duration of treatment (weeks) 8 Plan of Care Start Date 08/17/24 Plan of Care End Date 10/15/24 Next Visit Focus/Plan Next Note Type Treatment Note Next Visit Plan Continue challenged gait, progressive strengthening, balance, gait.
--- NOTE | 2024-09-26 16:13 | PT.OTN ---
Current Diagnoses Cerebral infarction due to thrombosis of right middle cerebral artery (09/26/24) Physical Therapy Treatment Note PT-OP-A Visit Information Start: 08/16/24 17:19 Freq: Status: Active Protocol: Document 09/26/24 14:31 AB (Rec: 09/26/24 16:01 AB [id number]) Out-Patient Physical Therapy Visit Information Visit Information Visit Type Treatment Note Visit Note Access Code [id number] Visit Start Time 14:33 Visit Stop Time 15:16 Visit Number 10 Number of CLINICAL EDUCATION CONSULTANT Visits 1 Evaluation Information Evaluation Date 08/23/24 PT-OP-B Current Condition Start: 08/16/24 17:19 Freq: Status: Active Protocol: Document 09/19/24 09:45 SAK (Rec: 09/19/24 10:35 SAK [id number]) Current Condition History of Current Condition Onset Date 07/27/24 Current Complaints fatigue, weakness History of Current Condition July 27 had a CVA; difficulty walking . Prior CVA 2002 affected right side. Also recent right hip pain after CVA, now not as bad, though tender to the touch. Day of CVA stayed in bed, was fatigued. At 5pm called the ambuilance because she wouldn't get out of bed. Had expressive aphasia, though resolved same day. Has vague memory of day of CVA. Now feels more tired, sleeps a lot. Drinks minimal water, history of only 1 UTI per patient. No regular exercise since the CVA. Has had PT previously but doesn't do exercises. Has fallen multiple times since CVA; 2 bad, went to doctor 1x no serious injury. Last time PT was taught how to walk with a cane but hasn't been using. won't let her go outside without help. Was going to exercise class at [employer] prior to CVA, hasn't gone back yet. PT-OP-C Subjective Start: 08/16/24 17:19 Freq: Status: Active Protocol: Document 09/26/24 14:31 AB (Rec: 09/26/24 16:01 AB [id number]) OP-PT Subjective Patient Comments Patient Comments Patient reports she is better, attributes to she has been exercising more. PT-OP-D Balance Start: 08/16/24 17:19 Freq: Status: Active Protocol: Document 09/26/24 14:31 AB (Rec: 09/26/24 16:10 AB [id number]) Balance Tests Single Limb Standing Single Limb- Right 5 sec Single Limb- Left 1sec PT-OP-E Functional Tests Start: 08/16/24 17:19 Freq: Status: Active Protocol: Document 09/26/24 14:31 AB (Rec: 09/26/24 16:06 AB [id number]) Functional Tests 6 Minute Walk Test Distance 1165.7 feet Comments without device Five Times Sit to Stand Test Score 16.02 sec Comments without UE use PT-OP-G Mobility & Gait Start: 08/16/24 17:19 Freq: Status: Active Protocol: Document 08/17/24 09:01 SAK (Rec: 08/23/24 08:57 SAK [id number]) OP Gait Assessment Gait Gait Assistance Required: Standby Assistance Assistive Devices Assistive Device None Gait Deviations General Gait Pattern Antalgic Stair Climbing Evaluation Evaluation Level of Assist On Stairs Standby Assistance Devices Stair Climbing Assistive Devices Left Railing,Right Railing Technique/Endurance Stair Climbing Direction Ascend and Descend Stair Climbing Technique Step Over Step Number of Steps Climbed 4 PT-OP-H Neuro Start: 08/16/24 17:19 Freq: Status: Active Protocol: Document 08/17/24 09:01 SAK (Rec: 08/23/24 08:57 SAK [id number]) Sensation Evaluation Gross Sensation Gross Sensation WNL Vital Signs Pulse 1 Pulse at Rest (bpm) 74 Pulse Assessment Method Palpation Blood Pressure Sitting Blood Pressure (90/60-120/80 mmHg) 134/82 H Blood Pressure Source Manual Cuff,Left Upper Extremity PT-OP-L Special Tests Start: 08/16/24 17:19 Freq: Status: Active Protocol: Document 08/17/24 09:01 SAK (Rec: 08/23/24 08:57 SAK [id number]) Special Tests Hip Special Tests Piriformis Test Results Negative ESTELA Test Results Negative PT-OP-M Strength Start: 08/16/24 17:19 Freq: Status: Active Protocol: Document 08/17/24 09:01 SAK (Rec: 08/23/24 08:57 SAK [id number]) Hip Strength Hip Manual Muscle Testing Left Flexion (L2) 4- Good- Extension (S1) 3+ Fair+ Abduction 4- Good- Adduction 4- Good- External Rotation 4- Good- Internal Rotation 4- Good- Right Flexion (L2) 3+ Fair+ Extension (S1) 3- Fair- Abduction 3+ Fair+ Adduction 3+ Fair+ External Rotation 4- Good- Knee Strength Knee Manual Muscle Testing Left Flexion (S2) 4+ Good+ Extension (L3) 4+ Good+ Right Flexion (S2) 4 Good Extension (L3) 4 Good Ankle/Foot Strength Ankle and Foot Manual Muscle Testing Left Dorsiflexion (L4) 4 Good Plantarflexion (S1) 4 Good Right Dorsiflexion (L4) 4+ Good+ Plantarflexion (S1) 4- Good- PT-OP-Q Treatments Start: 08/16/24 17:19 Freq: Status: Active Protocol: Document 09/26/24 14:31 AB (Rec: 09/26/24 16:01 AB [id number]) Gym Equipment Shuttle Recovery Unilateral Squats Details cued slower pacing eccentric control Resistance 62# (2 navy bands) Shuttle Recovery Platform Stable Reps/Time 2X10 each LE Therapeutic Exercises Sitting Exercises hip abduction Sitting Exercise Name HEP Side bilateral Resistance TB #3 [place] green Reps/Minutes X 15 without hold, 1 min Comments Review SIT TO STAND Reps/Minutes X 3 then X 5 for sit to stand test Comments no UE use Gait Training Gait Activity dynamic gait Comments Dynamic gait performed all but #5 pivot turn due to heading and instructions missing from test sheet, ie test score not accurate, but did perform 7/8 test activities which challenge gait and balnace PT-OP-T Assessment and Plan Start: 08/16/24 17:19 Freq: Status: Active Protocol: Document 09/26/24 14:31 AB (Rec: 09/26/24 16:01 AB [id number]) Physical Therapy Assessment Goals right hip pain Impairment right lateral hip pain 5/10 pain scale [place] Goal (LTG) Decrease pain to no greater than 2/10 as measure of decreased pain and improved right hip function Patient reports she hasn't had hip pain since her first visit. LTG Duration 10/15/24 activity tolerance Impairment 6 min walk test 1099 ft Medical Information Specialist Goal (LTG) Improve 6 min walk test to at least 1300 ft. 09/26/2024 6 min walk test 1165. 7 ft LTG Duration 10/15/24 strength Impairment impaired functional LE strength stephania; 5x sit to stand 23 sec with use of rea Jail Goal (LTG) Improve functional LE strength as evidenced by patient able to move from sit to stand 5x in no more than 10 seconds without UE assist and be able to perform a floor transfer independently 09/26/2024 sit to stand X5 16.2 sec Dynamic balance Impairment impaired dynamic balance, unable to stand on 1 foot Impairment DGI ; FGA 07/25 Medical Information Specialist Goal (LTG) Patient will improve dynamic balance and safety as measured by ability to balance on 1 foot for at least 10 seconds SLS R 5 sec L 1 sec without UE use ( measured post DGA, sit to stand X 5) Assessment Summary Assessment Patient with reports of increased fatigue end of session. Improved 6 min walk test. Sit to stand X 5 performed nearly end of session with increased fatigue visible ie stand to sti with inc velocity. SLS continues to be limited. Physical Therapy Plan Frequency and Duration Frequency of Treatment 2x/Week Duration of treatment (weeks) 8 Plan of Care Start Date 08/17/24 Plan of Care End Date 10/15/24 Next Visit Focus/Plan Next Note Type Treatment Note Next Visit Plan Continue challenged gait, progressive strengthening, balance, gait.
--- NOTE | 2024-10-13 12:35 | PT.OTN ---
Current Diagnoses Cerebral infarction due to thrombosis of right middle cerebral artery (10/13/24) Physical Therapy Treatment Note PT-OP-A Visit Information Start: 08/16/24 17:19 Freq: Status: Active Protocol: Document 10/13/24 10:45 AB (Rec: 10/13/24 12:33 AB [id number]) Out-Patient Physical Therapy Visit Information Visit Information Visit Type Treatment Note Visit Note Access Code [email or web address] Visit Start Time 11:34 Visit Stop Time 12:18 Visit Number 11 Number of ECMO SPECIALIST Visits 2 PT-OP-B Current Condition Start: 08/16/24 17:19 Freq: Status: Active Protocol: Document 09/19/24 09:45 SAK (Rec: 09/19/24 10:35 SAK [id number]) Current Condition History of Current Condition Onset Date 07/27/24 Current Complaints fatigue, weakness History of Current Condition July 27 had a CVA; difficulty walking . Prior CVA 2002 affected right side. Also recent right hip pain after CVA, now not as bad, though tender to the touch. Day of CVA stayed in bed, was fatigued. At 5pm called the ambuilance because she wouldn't get out of bed. Had expressive aphasia, though resolved same day. Has vague memory of day of CVA. Now feels more tired, sleeps a lot. Drinks minimal water, history of only 1 UTI per patient. No regular exercise since the CVA. Has had PT previously but doesn't do exercises. Has fallen multiple times since CVA; 2 bad, went to doctor 1x no serious injury. Last time PT was taught how to walk with a cane but hasn't been using. won't let her go outside without help. Was going to exercise class at [employer] prior to CVA, hasn't gone back yet. PT-OP-C Subjective Start: 08/16/24 17:19 Freq: Status: Active Protocol: Document 10/13/24 10:45 AB (Rec: 10/13/24 12:33 AB [id number]) OP-PT Subjective Patient Comments Patient Comments Patient reports she is the same, exercises are not going well at home, comments because she is lazy. Patient reports she does some exercise occasionally, most a little bit. Patient requests HEP exercises be printed larger. PT-OP-D Balance Start: 08/16/24 17:19 Freq: Status: Active Protocol: Document 10/13/24 10:45 AB (Rec: 10/13/24 12:34 AB [id number]) Schaefer Balance Assessment Total Score Schaefer Impairment Rating 1 to 19% Impaired (Score 45-55 ) PT-OP-E Functional Tests Start: 08/16/24 17:19 Freq: Status: Active Protocol: Document 10/13/24 10:45 AB (Rec: 10/13/24 12:35 AB [id number]) Functional Tests Dynamic Gait Index (DGI) DGI Impairment Rating 20 to <40% Impaired (Score 15- 19) PT-OP-G Mobility & Gait Start: 08/16/24 17:19 Freq: Status: Active Protocol: Document 08/17/24 09:01 [facility] (Rec: 08/23/24 08:57 [facility] [id number]) OP Gait Assessment Gait Gait Assistance Required: Standby Assistance Assistive Devices Assistive Device None Gait Deviations General Gait Pattern Antalgic Stair Climbing Evaluation Evaluation Level of Assist On Stairs Standby Assistance Devices Stair Climbing Assistive Devices Left Railing,Right Railing Technique/Endurance Stair Climbing Direction Ascend and Descend Stair Climbing Technique Step Over Step Number of Steps Climbed 4 PT-OP-H Neuro Start: 08/16/24 17:19 Freq: Status: Active Protocol: Document 08/17/24 09:01 [facility] (Rec: 08/23/24 08:57 [facility] [id number]) Sensation Evaluation Gross Sensation Gross Sensation WNL Vital Signs Pulse 1 Pulse at Rest (bpm) 74 Pulse Assessment Method Palpation Blood Pressure Sitting Blood Pressure (90/60-120/80 mmHg) 134/82 H Blood Pressure Source Manual Cuff,Left Upper Extremity PT-OP-L Special Tests Start: 08/16/24 17:19 Freq: Status: Active Protocol: Document 08/17/24 09:01 SAK (Rec: 08/23/24 08:57 SAK [id number]) Special Tests Hip Special Tests Piriformis Test Results Negative ESTELA Test Results Negative PT-OP-M Strength Start: 08/16/24 17:19 Freq: Status: Active Protocol: Document 08/17/24 09:01 SAK (Rec: 08/23/24 08:57 SAK [id number]) Hip Strength Hip Manual Muscle Testing Left Flexion (L2) 4- Good- Extension (S1) 3+ Fair+ Abduction 4- Good- Adduction 4- Good- External Rotation 4- Good- Internal Rotation 4- Good- Right Flexion (L2) 3+ Fair+ Extension (S1) 3- Fair- Abduction 3+ Fair+ Adduction 3+ Fair+ External Rotation 4- Good- Knee Strength Knee Manual Muscle Testing Left Flexion (S2) 4+ Good+ Extension (L3) 4+ Good+ Right Flexion (S2) 4 Good Extension (L3) 4 Good Ankle/Foot Strength Ankle and Foot Manual Muscle Testing Left Dorsiflexion (L4) 4 Good Plantarflexion (S1) 4 Good Right Dorsiflexion (L4) 4+ Good+ Plantarflexion (S1) 4- Good- PT-OP-Q Treatments Start: 08/16/24 17:19 Freq: Status: Active Protocol: Document 10/13/24 10:45 AB (Rec: 10/13/24 12:33 AB [id number]) Therapeutic Exercises Sitting Exercises hip abduction Sitting Exercise Name HEP Side bilateral Resistance TB #3 [place] Reps/Minutes X 15 without hold, 1 min Comments Review SIT TO STAND Reps/Minutes X 5 for sit to stand test Comments no UE use Standing Exercises gastroc/soleus stretch Standing Exercise Name At wall gastroc and soleus bilaterally Side bilateral Reps/Minutes 60 sec X 1 each LE Comments Verbal cues heel raise Standing Exercise Name HEP Equipment Used parallel bars Reps/Minutes 15X Comments cues for slow, UE support as needed Neuro Re-Education Treatment Balance Activities step up taps Details CGA hands above bars Equipment 6 inch step Reps/Duration X10 PT-OP-T Assessment and Plan Start: 08/16/24 17:19 Freq: Status: Active Protocol: Document 10/13/24 10:45 AB (Rec: 10/13/24 12:33 AB [id number]) Physical Therapy Assessment Goals right hip pain Impairment right lateral hip pain 5/10 pain scale Electric Stove Installer Goal (LTG) Decrease pain to no greater than 2/10 as measure of decreased pain and improved right hip function Patient reports she hasn't had hip pain since her first visit. LTG Duration 10/15/24 Assessment Summary Assessment HEP from this ECMO SPECIALIST reprinted in larger font for patient and reviewed this session. Olive and BA performed this session . Last session patient had an improved 6 min walk test. Physical Therapy Plan Frequency and Duration Frequency of Treatment 2x/Week Duration of treatment (weeks) 8 Plan of Care Start Date 08/17/24 Plan of Care End Date 10/15/24 Next Visit Focus/Plan Next Note Type Treatment Note Next Visit Plan Continue challenged gait, progressive strengthening, balance, gait.
--- NOTE | 2024-10-13 15:06 | PT.OTRE ---
Current Diagnoses Cerebral infarction due to thrombosis of right middle cerebral artery (10/13/24) Past Medical History (Last Reviewed 07/27/24 @ 17:21 by Ernesto Schaefer DO) Patent foramen ovale Visit Care Team Role Provider Type Viky Seymour MD Attending Provider Physician Family Provider Primary Care Provider Referring Provider Specialty: Family Practice Address: [address] [place] [address], [facility] [place], [address] Email: [email or web address] Physical Therapy Re-Evaluation PT-OP-A Visit Information Start: 08/16/24 17:19 Freq: Status: Active Protocol: Document 10/13/24 14:54 SAK (Rec: 10/13/24 15:06 SAK [id number]) Out-Patient Physical Therapy Visit Information Visit Information Visit Type Re-Evaluation Evaluation Information Evaluation Date 08/23/24 PT-OP-B Current Condition Start: 08/16/24 17:19 Freq: Status: Active Protocol: Document 09/19/24 09:45 SAK (Rec: 09/19/24 10:35 SAK [id number]) Current Condition History of Current Condition Onset Date 07/27/24 Current Complaints fatigue, weakness History of Current Condition July 27 had a CVA; difficulty walking . Prior CVA 2002 affected right side. Also recent right hip pain after CVA, now not as bad, though tender to the touch. Day of CVA stayed in bed, was fatigued. At 5pm called the ambuilance because she wouldn't get out of bed. Had expressive aphasia, though resolved same day. Has vague memory of day of CVA. Now feels more tired, sleeps a lot. Drinks minimal water, history of only 1 UTI per patient. No regular exercise since the CVA. Has had PT previously but doesn't do exercises. Has fallen multiple times since CVA; 2 bad, went to doctor 1x no serious injury. Last time PT was taught how to walk with a cane but hasn't been using. won't let her go outside without help. Was going to exercise class at [facility] prior to CVA, hasn't gone back yet. PT-OP-C Subjective Start: 08/16/24 17:19 Freq: Status: Active Protocol: Document 10/13/24 10:45 AB (Rec: 10/13/24 12:33 AB [id number]) OP-PT Subjective Patient Comments Patient Comments Patient reports she is the same, exercises are not going well at home, comments because she is lazy. Patient reports she does some exercise occasionally, most a little bit. Patient requests HEP exercises be printed larger. PT-OP-D Balance Start: 08/16/24 17:19 Freq: Status: Active Protocol: Document 10/13/24 10:45 AB (Rec: 10/13/24 12:34 AB [id number]) Schaefer Balance Assessment Total Score Schaefer Impairment Rating 1 to 19% Impaired (Score 45-55 ) PT-OP-E Functional Tests Start: 08/16/24 17:19 Freq: Status: Active Protocol: Document 10/13/24 10:45 AB (Rec: 10/13/24 12:35 AB [id number]) Functional Tests Dynamic Gait Index (DGI) DGI Impairment Rating 20 to <40% Impaired (Score 15- 19) PT-OP-G Mobility & Gait Start: 08/16/24 17:19 Freq: Status: Active Protocol: Document 08/17/24 09:01 [facility] (Rec: 08/23/24 08:57 [facility] [id number]) OP Gait Assessment Gait Gait Assistance Required: Standby Assistance Assistive Devices Assistive Device None Gait Deviations General Gait Pattern Antalgic Stair Climbing Evaluation Evaluation Level of Assist On Stairs Standby Assistance Devices Stair Climbing Assistive Devices Left Railing,Right Railing Technique/Endurance Stair Climbing Direction Ascend and Descend Stair Climbing Technique Step Over Step Number of Steps Climbed 4 PT-OP-H Neuro Start: 08/16/24 17:19 Freq: Status: Active Protocol: Document 08/17/24 09:01 [facility] (Rec: 08/23/24 08:57 [facility] [id number]) Sensation Evaluation Gross Sensation Gross Sensation WNL Vital Signs Pulse 1 Pulse at Rest (bpm) 74 Pulse Assessment Method Palpation Blood Pressure Sitting Blood Pressure (90/60-120/80 mmHg) 134/82 H Blood Pressure Source Manual Cuff,Left Upper Extremity PT-OP-L Special Tests Start: 08/16/24 17:19 Freq: Status: Active Protocol: Document 08/17/24 09:01 SAK (Rec: 08/23/24 08:57 SAK [id number]) Special Tests Hip Special Tests Piriformis Test Results Negative ESTELA Test Results Negative PT-OP-M Strength Start: 08/16/24 17:19 Freq: Status: Active Protocol: Document 08/17/24 09:01 [facility] (Rec: 08/23/24 08:57 [facility] [id number]) Hip Strength Hip Manual Muscle Testing Left Flexion (L2) 4- Good- Extension (S1) 3+ Fair+ Abduction 4- Good- Adduction 4- Good- External Rotation 4- Good- Internal Rotation 4- Good- Right Flexion (L2) 3+ Fair+ Extension (S1) 3- Fair- Abduction 3+ Fair+ Adduction 3+ Fair+ External Rotation 4- Good- Knee Strength Knee Manual Muscle Testing Left Flexion (S2) 4+ Good+ Extension (L3) 4+ Good+ Right Flexion (S2) 4 Good Extension (L3) 4 Good Ankle/Foot Strength Ankle and Foot Manual Muscle Testing Left Dorsiflexion (L4) 4 Good Plantarflexion (S1) 4 Good Right Dorsiflexion (L4) 4+ Good+ Plantarflexion (S1) 4- Good- PT-OP-Q Treatments Start: 08/16/24 17:19 Freq: Status: Active Protocol: Document 10/13/24 10:45 AB (Rec: 10/13/24 12:33 AB [id number]) Therapeutic Exercises Sitting Exercises hip abduction Sitting Exercise Name HEP Side bilateral Resistance TB #3 [place] green Reps/Minutes X 15 without hold, 1 min Comments Review SIT TO STAND Reps/Minutes X 5 for sit to stand test Comments no UE use Standing Exercises gastroc/soleus stretch Standing Exercise Name At wall gastroc and soleus bilaterally Side bilateral Reps/Minutes 60 sec X 1 each LE Comments Verbal cues heel raise Standing Exercise Name HEP Equipment Used parallel bars Reps/Minutes 15X Comments cues for slow, UE support as needed Neuro Re-Education Treatment Balance Activities step up taps Details CGA hands above bars Equipment 6 inch step Reps/Duration X10 PT-OP-T Assessment and Plan Start: 08/16/24 17:19 Freq: Status: Active Protocol: Document 10/13/24 14:54 [facility] (Rec: 10/13/24 15:06 [facility] [id number]) Physical Therapy Assessment Goals right hip pain Impairment right lateral hip pain 5/10 pain scale [place] Goal (LTG) Decrease pain to no greater than 2/10 as measure of decreased pain and improved right hip function Patient reports she hasn't had hip pain since her first visit. LTG Duration goal met activity tolerance Impairment 6 min walk test 1099 ft [place] Goal (LTG) Improve 6 min walk test to at least 1300 ft. 09/26/2024 6 min walk test 1165. 7 ft 10/13/24: not retested today; 1167.5 ft last session, improved LTG Duration 11/24/24 strength Impairment impaired functional LE strength stephania; 5x sit to stand 23 sec with use of rea [place]wright Goal (LTG) Improve functional LE strength as evidenced by patient able to move from sit to stand 5x in no more than 10 seconds without UE assist and be able to perform a floor transfer independently 09/26/2024 sit to stand X5 16.2 sec LTG Duration 11/24/24 Dynamic balance Impairment impaired dynamic balance, unable to stand on 1 foot Impairment DGI 14; FGA 07/25 [place] Goal (LTG) Patient will improve dynamic balance and safety as measured by ability to balance on 1 foot for at least 10 seconds 10/13/24: SLS R 5 sec L 1 sec without UE use ( measured post DGI, sit to stand X 5) DGI score, FGA LTG Duration 11/24/24 Assessment Summary Assessment Despite low patient compliance to HEP she has made progress toward her PT goals. Impacting her progress is low motivation, vision loss. Encouraging increased compliance to HEP. Physical Therapy Plan Frequency and Duration Frequency of Treatment 2x/Week Duration of treatment (weeks) 6 Plan of Care Start Date 10/13/24 Plan of Care End Date 11/24/24 Next Visit Focus/Plan Next Note Type Treatment Note Next Visit Plan Continue challenged gait, progressive strengthening, balance, gait to help patient fully achieve her PT goals.
--- NOTE | 2024-10-13 15:07 | PT.OPPOC ---
Physical, Occupational & Speech Therapy At [facility] Current Diagnoses Cerebral infarction due to thrombosis of right middle cerebral artery (10/13/24) Visit Care Team Role Provider Type Viky Seymour MD Attending Provider Physician Family Provider Primary Care Provider Referring Provider Specialty: Family Practice Address: [address] [place] [address], [facility] [place], [address] Email: [email or web address] Plan Of Care PT-OP-B Current Condition Start: 08/16/24 17:19 Freq: Status: Active Protocol: Document 09/19/24 09:45 SAK (Rec: 09/19/24 10:35 SAK [id number]) Current Condition History of Current Condition Onset Date 07/27/24 Current Complaints fatigue, weakness History of Current Condition July 27 had a CVA; difficulty walking . Prior CVA 2002 affected right side. Also recent right hip pain after CVA, now not as bad, though tender to the touch. Day of CVA stayed in bed, was fatigued. At 5pm called the ambuilance because she wouldn't get out of bed. Had expressive aphasia, though resolved same day. Has vague memory of day of CVA. Now feels more tired, sleeps a lot. Drinks minimal water, history of only 1 UTI per patient. No regular exercise since the CVA. Has had PT previously but doesn't do exercises. Has fallen multiple times since CVA; 2 bad, went to doctor 1x no serious injury. Last time PT was taught how to walk with a cane but hasn't been using. won't let her go outside without help. Was going to exercise class at [facility] prior to CVA, hasn't gone back yet. PT-OP-T Assessment and Plan Start: 08/16/24 17:19 Freq: Status: Active Protocol: Document 10/13/24 14:54 SAK (Rec: 10/13/24 15:06 SAK [id number]) Physical Therapy Assessment Goals right hip pain Impairment right lateral hip pain 5/10 pain scale Inside Sales Advertising Executive Goal (LTG) Decrease pain to no greater than 2/10 as measure of decreased pain and improved right hip function Patient reports she hasn't had hip pain since her first visit. LTG Duration goal met activity tolerance Impairment 6 min walk test 1099 ft Fpc Goal (LTG) Improve 6 min walk test to at least 1300 ft. 09/26/2024 6 min walk test 1165. 7 ft 10/13/24: not retested today; 1167.5 ft last session, improved LTG Duration 11/24/24 strength Impairment impaired functional LE strength stephania; 5x sit to stand 23 sec with use of rea Fpc Goal (LTG) Improve functional LE strength as evidenced by patient able to move from sit to stand 5x in no more than 10 seconds without UE assist and be able to perform a floor transfer independently 09/26/2024 sit to stand X5 16.2 sec LTG Duration 11/24/24 Dynamic balance Impairment impaired dynamic balance, unable to stand on 1 foot Impairment DGI ; FGA 07/25 Fpc Goal (LTG) Patient will improve dynamic balance and safety as measured by ability to balance on 1 foot for at least 10 seconds 10/13/24: SLS R 5 sec L 1 sec without UE use ( measured post DGI, sit to stand X 5) DGI score, FGA LTG Duration 11/24/24 Assessment Summary Assessment Despite low patient compliance to HEP she has made progress toward her PT goals. Impacting her progress is low motivation, vision loss. Encouraging increased compliance to HEP. Physical Therapy Plan Frequency and Duration Frequency of Treatment 2x/Week Duration of treatment (weeks) 6 Plan of Care Start Date 10/13/24 Plan of Care End Date 11/24/24 Next Visit Focus/Plan Next Note Type Treatment Note Next Visit Plan Continue challenged gait, progressive strengthening, balance, gait to help patient fully achieve her PT goals. Plan of Care Dates Plan of Care Start Date 10/13/24 Plan of Care End Date 11/24/24 Electronically Signed by: Briana Vela, PT 10/13/24 1314 If you are in agreement with this Plan of Care, please return a signed and dated copy. I have reviewed this Plan of Care and certify that the skilled therapy services above are required to meet the patient?s needs. Physician Signature Date Printed Name and Credentials Clinical Instructor Signature Printed Name and Credentials
--- NOTE | 2024-10-20 12:25 | PT.OTN ---
Current Diagnoses Cerebral infarction due to thrombosis of right middle cerebral artery (10/20/24) Physical Therapy Treatment Note PT-OP-A Visit Information Start: 08/16/24 17:19 Freq: Status: Active Protocol: Document 10/20/24 09:42 AB (Rec: 10/20/24 12:25 AB [id number]) Out-Patient Physical Therapy Visit Information Visit Information Visit Type Treatment Note Visit Note Access Code [email or web address] Visit Start Time 09:48 Visit Stop Time 10:31 Visit Number 12 Number of EQUALIZING SAW OPERATOR Visits 3 Evaluation Information Evaluation Date 08/23/24 PT-OP-B Current Condition Start: 08/16/24 17:19 Freq: Status: Active Protocol: Document 09/19/24 09:45 SAK (Rec: 09/19/24 10:35 SAK [id number]) Current Condition History of Current Condition Onset Date 07/27/24 Current Complaints fatigue, weakness History of Current Condition July 27 had a CVA; difficulty walking . Prior CVA 2002 affected right side. Also recent right hip pain after CVA, now not as bad, though tender to the touch. Day of CVA stayed in bed, was fatigued. At 5pm called the ambuilance because she wouldn't get out of bed. Had expressive aphasia, though resolved same day. Has vague memory of day of CVA. Now feels more tired, sleeps a lot. Drinks minimal water, history of only 1 UTI per patient. No regular exercise since the CVA. Has had PT previously but doesn't do exercises. Has fallen multiple times since CVA; 2 bad, went to doctor 1x no serious injury. Last time PT was taught how to walk with a cane but hasn't been using. won't let her go outside without help. Was going to exercise class at [employer] prior to CVA, hasn't gone back yet. PT-OP-C Subjective Start: 08/16/24 17:19 Freq: Status: Active Protocol: Document 10/20/24 09:42 AB (Rec: 10/20/24 12:25 AB [id number]) OP-PT Subjective Patient Comments Patient Comments Patient reports she is wearing a heart monitor on and was told not to lift anything heavy. Patient reports she has the monitor on due to stroke earlier this year. Patient reports having no pain start of seession.Patient reports having no pain start of session. Pt reports performing HEP and feeling better when she does them. PT-OP-D Balance Start: 08/16/24 17:19 Freq: Status: Active Protocol: Document 10/13/24 10:45 AB (Rec: 10/13/24 12:34 AB [id number]) Schaefer Balance Assessment Total Score Schaefer Impairment Rating 1 to 19% Impaired (Score 45-55 ) PT-OP-E Functional Tests Start: 08/16/24 17:19 Freq: Status: Active Protocol: Document 10/13/24 10:45 AB (Rec: 10/13/24 12:35 AB [id number]) Functional Tests Dynamic Gait Index (DGI) DGI Impairment Rating 20 to <40% Impaired (Score 15- 19) PT-OP-G Mobility & Gait Start: 08/16/24 17:19 Freq: Status: Active Protocol: Document 08/17/24 09:01 [facility] (Rec: 08/23/24 08:57 [facility] [id number]) OP Gait Assessment Gait Gait Assistance Required: Standby Assistance Assistive Devices Assistive Device None Gait Deviations General Gait Pattern Antalgic Stair Climbing Evaluation Evaluation Level of Assist On Stairs Standby Assistance Devices Stair Climbing Assistive Devices Left Railing,Right Railing Technique/Endurance Stair Climbing Direction Ascend and Descend Stair Climbing Technique Step Over Step Number of Steps Climbed 4 PT-OP-H Neuro Start: 08/16/24 17:19 Freq: Status: Active Protocol: Document 08/17/24 09:01 SAK (Rec: 08/23/24 08:57 [facility] [id number]) Sensation Evaluation Gross Sensation Gross Sensation WNL Vital Signs Pulse 1 Pulse at Rest (bpm) 74 Pulse Assessment Method Palpation Blood Pressure Sitting Blood Pressure (90/60-120/80 mmHg) 134/82 H Blood Pressure Source Manual Cuff,Left Upper Extremity PT-OP-L Special Tests Start: 08/16/24 17:19 Freq: Status: Active Protocol: Document 08/17/24 09:01 SAK (Rec: 08/23/24 08:57 [facility] [id number]) Special Tests Hip Special Tests Piriformis Test Results Negative ESTELA Test Results Negative PT-OP-M Strength Start: 08/16/24 17:19 Freq: Status: Active Protocol: Document 08/17/24 09:01 SAK (Rec: 08/23/24 08:57 [facility] [id number]) Hip Strength Hip Manual Muscle Testing Left Flexion (L2) 4- Good- Extension (S1) 3+ Fair+ Abduction 4- Good- Adduction 4- Good- External Rotation 4- Good- Internal Rotation 4- Good- Right Flexion (L2) 3+ Fair+ Extension (S1) 3- Fair- Abduction 3+ Fair+ Adduction 3+ Fair+ External Rotation 4- Good- Knee Strength Knee Manual Muscle Testing Left Flexion (S2) 4+ Good+ Extension (L3) 4+ Good+ Right Flexion (S2) 4 Good Extension (L3) 4 Good Ankle/Foot Strength Ankle and Foot Manual Muscle Testing Left Dorsiflexion (L4) 4 Good Plantarflexion (S1) 4 Good Right Dorsiflexion (L4) 4+ Good+ Plantarflexion (S1) 4- Good- PT-OP-Q Treatments Start: 08/16/24 17:19 Freq: Status: Active Protocol: Document 10/20/24 09:42 AB (Rec: 10/20/24 12:25 AB [id number]) Cardio Equipment Recumbent Bicycle Duration (Minutes) 5 Resistance 3 Seat Position 6,7 Gym Equipment Shuttle Recovery Unilateral Squats Details cued slower pacing eccentric control Shuttle Recovery Platform Stable Reps/Time X 10 each LE Bilateral Squats Details good slower pacing Resistance 87# (3 navy bands) Shuttle Recovery Platform Stable Reps/Time X 5 62 # then 50# X10 L, 62# R X 15 Therapeutic Exercises Sitting Exercises hip abduction Sitting Exercise Name HEP Side bilateral Resistance TB #4 [place] Reps/Minutes X 15 without hold, 1 min Comments Review Standing Exercises resisted stepping Standing Exercise Name fwd, retro, side step Resistance Tb #4 around shins Equipment Used rail light glide 1 UE Reps/Minutes 10 ft x6 laps each direction ( also above knees X 2 laps fwd retro) gastroc/soleus stretch Standing Exercise Name on NAIMA Side bilateral Reps/Minutes 60 sec X 2 each LE Comments Verbal cues Neuro Re-Education Treatment Balance Activities wall fall Reps/Duration X10 Comments Pillow behind back close supervision BOSU Details blue side marching Reps/Duration 2 min Comments CGA initiates with hands above bars tandem balance Details tandem stepping Reps/Duration 10 feet X 6 CGA single leg balance Surface on foam Equipment parallel bars Comments 2 min PT-OP-T Assessment and Plan Start: 08/16/24 17:19 Freq: Status: Active Protocol: Document 10/20/24 09:42 AB (Rec: 10/20/24 12:25 AB [id number]) Physical Therapy Assessment Goals right hip pain Impairment right lateral hip pain 5/10 pain scale Ammunition Assembly Ii Laborer Goal (LTG) Decrease pain to no greater than 2/10 as measure of decreased pain and improved right hip function Patient reports she hasn't had hip pain since her first visit. LTG Duration goal met activity tolerance Impairment 6 min walk test 1099 ft Nursing Home Goal (LTG) Improve 6 min walk test to at least 1300 ft. 09/26/2024 6 min walk test 1165. 7 ft 10/13/24: not retested today; 1167.5 ft last session, improved LTG Duration 11/24/24 strength Impairment impaired functional LE strength stephania; 5x sit to stand 23 sec with use of rea Nursing Home Goal (LTG) Improve functional LE strength as evidenced by patient able to move from sit to stand 5x in no more than 10 seconds without UE assist and be able to perform a floor transfer independently 09/26/2024 sit to stand X5 16.2 sec LTG Duration 11/24/24 Dynamic balance Impairment impaired dynamic balance, unable to stand on 1 foot Impairment DGI ; FGA 07/25 Ammunition Assembly Ii Laborer Goal (LTG) Patient will improve dynamic balance and safety as measured by ability to balance on 1 foot for at least 10 seconds 10/13/24: SLS R 5 sec L 1 sec without UE use ( measured post DGI, sit to stand X 5) DGI score, FGA LTG Duration 11/24/24 Assessment Summary Assessment Viky reports having no pain end of session, but did have some L LE pain with 62# on leg press ex. Physical Therapy Plan Frequency and Duration Frequency of Treatment 2x/Week Duration of treatment (weeks) 6 Plan of Care Start Date 10/13/24 Plan of Care End Date 11/24/24 Next Visit Focus/Plan Next Note Type Treatment Note Next Visit Plan Ambulation outdoors with SPC as able, possibly with cane for blind if able to obtain. Continue challenged gait, progressive strengthening, balance, gait to help patient fully achieve her PT goals.
--- NOTE | 2024-10-27 13:59 | PT.OTN ---
Current Diagnoses Cerebral infarction due to thrombosis of right middle cerebral artery (10/27/24) Physical Therapy Treatment Note PT-OP-A Visit Information Start: 08/16/24 17:19 Freq: Status: Active Protocol: Document 10/27/24 13:00 [facility] (Rec: 10/27/24 13:47 [facility] [id number]) Out-Patient Physical Therapy Visit Information Visit Information Visit Type Treatment Note Visit Start Time 13:00 Visit Number 13 Number of SHIPBOARD INTELLIGENCE ANALYST Visits 0 Evaluation Information Evaluation Date 08/23/24 Precautions Precautions macular degeneration; can't read, light sensitivity PT-OP-B Current Condition Start: 08/16/24 17:19 Freq: Status: Active Protocol: Document 10/27/24 13:00 [facility] (Rec: 10/27/24 13:47 [facility] [id number]) Current Condition History of Current Condition Onset Date 07/27/24 Current Complaints fatigue, weakness History of Current Condition July 27 had a CVA; difficulty walking . Prior CVA 2002 affected right side. Also recent right hip pain after CVA, now not as bad, though tender to the touch. Day of CVA stayed in bed, was fatigued. At 5pm called the ambuilance because she wouldn't get out of bed. Had expressive aphasia, though resolved same day. Has vague memory of day of CVA. Now feels more tired, sleeps a lot. Drinks minimal water, history of only 1 UTI per patient. No regular exercise since the CVA. Has had PT previously but doesn't do exercises. Has fallen multiple times since CVA; 2 bad, went to doctor 1x no serious injury. Last time PT was taught how to walk with a cane but hasn't been using. won't let her go outside without help. Was going to exercise class at [employer] prior to CVA, hasn't gone back yet. PT-OP-C Subjective Start: 08/16/24 17:19 Freq: Status: Active Protocol: Document 10/27/24 13:00 [facility] (Rec: 10/27/24 13:47 [facility] [id number]) OP-PT Subjective Patient Comments Patient Comments Still wearing heart monitor until next thursday. battling skin cancer, will have to have a procedure, pt worried as it is approaching his eye. Doing some of HEP . PT-OP-D Balance Start: 08/16/24 17:19 Freq: Status: Active Protocol: Document 10/13/24 10:45 AB (Rec: 10/13/24 12:34 AB [id number]) Schaefer Balance Assessment Total Score Schaefer Impairment Rating 1 to 19% Impaired (Score 45-55 ) PT-OP-E Functional Tests Start: 08/16/24 17:19 Freq: Status: Active Protocol: Document 10/13/24 10:45 AB (Rec: 10/13/24 12:35 AB [id number]) Functional Tests Dynamic Gait Index (DGI) DGI Impairment Rating 20 to <40% Impaired (Score 15- 19) PT-OP-G Mobility & Gait Start: 08/16/24 17:19 Freq: Status: Active Protocol: Document 08/17/24 09:01 [facility] (Rec: 08/23/24 08:57 SAK [id number]) OP Gait Assessment Gait Gait Assistance Required: Standby Assistance Assistive Devices Assistive Device None Gait Deviations General Gait Pattern Antalgic Stair Climbing Evaluation Evaluation Level of Assist On Stairs Standby Assistance Devices Stair Climbing Assistive Devices Left Railing,Right Railing Technique/Endurance Stair Climbing Direction Ascend and Descend Stair Climbing Technique Step Over Step Number of Steps Climbed 4 PT-OP-H Neuro Start: 08/16/24 17:19 Freq: Status: Active Protocol: Document 08/17/24 09:01 SAK (Rec: 08/23/24 08:57 SAK [id number]) Sensation Evaluation Gross Sensation Gross Sensation WNL Vital Signs Pulse 1 Pulse at Rest (bpm) 74 Pulse Assessment Method Palpation Blood Pressure Sitting Blood Pressure (90/60-120/80 mmHg) 134/82 H Blood Pressure Source Manual Cuff,Left Upper Extremity PT-OP-L Special Tests Start: 08/16/24 17:19 Freq: Status: Active Protocol: Document 08/17/24 09:01 SAK (Rec: 08/23/24 08:57 SAK [id number]) Special Tests Hip Special Tests Piriformis Test Results Negative ESTELA Test Results Negative PT-OP-M Strength Start: 08/16/24 17:19 Freq: Status: Active Protocol: Document 08/17/24 09:01 SAK (Rec: 08/23/24 08:57 SAK [id number]) Hip Strength Hip Manual Muscle Testing Left Flexion (L2) 4- Good- Extension (S1) 3+ Fair+ Abduction 4- Good- Adduction 4- Good- External Rotation 4- Good- Internal Rotation 4- Good- Right Flexion (L2) 3+ Fair+ Extension (S1) 3- Fair- Abduction 3+ Fair+ Adduction 3+ Fair+ External Rotation 4- Good- Knee Strength Knee Manual Muscle Testing Left Flexion (S2) 4+ Good+ Extension (L3) 4+ Good+ Right Flexion (S2) 4 Good Extension (L3) 4 Good Ankle/Foot Strength Ankle and Foot Manual Muscle Testing Left Dorsiflexion (L4) 4 Good Plantarflexion (S1) 4 Good Right Dorsiflexion (L4) 4+ Good+ Plantarflexion (S1) 4- Good- PT-OP-Q Treatments Start: 08/16/24 17:19 Freq: Status: Active Protocol: Document 10/27/24 13:00 [facility] (Rec: 10/27/24 13:47 [facility] [id number]) Cardio Equipment Recumbent Stepper (Sci-Fit) Duration (Minutes) 10 Resistance 2-4 (window shade pulled) Seat Position 11 Other BUEs& BLEs, 0.99 miles Gym Equipment Shuttle Recovery Unilateral Squats Details cued slower pacing eccentric control Shuttle Recovery Platform Stable Reps/Time X 10 each LE Bilateral Squats Details good slower pacing Resistance 87# (3 navy bands) Shuttle Recovery Platform Stable Reps/Time X 5 62 # then 50# X10 L, 62# R X 15 Gait Training Gait Activity 4WW Distance/Duration 200 ft Treatment Focus safe use, option for using outside. outdoor Device Used SPC Level of Assistance CGA Distance/Duration 10 min Treatment Focus safety Comments sidewalk, pavement, stairs with railing, 2 stairs without railing, shade, sun; PT-OP-T Assessment and Plan Start: 08/16/24 17:19 Freq: Status: Active Protocol: Document 10/27/24 13:00 [facility] (Rec: 10/27/24 13:47 [facility] [id number]) Physical Therapy Assessment Goals right hip pain Impairment right lateral hip pain 5/10 pain scale Retinal Angiographer Goal (LTG) Decrease pain to no greater than 2/10 as measure of decreased pain and improved right hip function Patient reports she hasn't had hip pain since her first visit. LTG Duration goal met activity tolerance Impairment 6 min walk test 1099 ft Retinal Angiographer Goal (LTG) Improve 6 min walk test to at least 1300 ft. 09/26/2024 6 min walk test 1165. 7 ft 10/13/24: not retested today; 1167.5 ft last session, improved LTG Duration 11/24/24 strength Impairment impaired functional LE strength stephania; 5x sit to stand 23 sec with use of rea Retinal Angiographer Goal (LTG) Improve functional LE strength as evidenced by patient able to move from sit to stand 5x in no more than 10 seconds without UE assist and be able to perform a floor transfer independently 09/26/2024 sit to stand X5 16.2 sec LTG Duration 11/24/24 Dynamic balance Impairment impaired dynamic balance, unable to stand on 1 foot Impairment DGI ; FGA 07/25 [facility] Goal (LTG) Patient will improve dynamic balance and safety as measured by ability to balance on 1 foot for at least 10 seconds 10/13/24: SLS R 5 sec L 1 sec without UE use ( measured post DGI, sit to stand X 5) DGI score, FGA LTG Duration 11/24/24 Assessment Summary Assessment Emlphasis on gait training with cane and trial 4WW as options to allow patient to walk outside. Demonstrated good understanding though difficulty with sequencing of cane. . [place]ide with cane required CGA level and stairs with railing. Patient struggles with possibility of using 4WW due to feeling old , PT stressed it as a tool to allow her to take walks if won't go, will try with walker outside next session, due to need for assistance with cane outdoors for safety. Physical Therapy Plan Frequency and Duration Frequency of Treatment 2x/Week Duration of treatment (weeks) 6 Plan of Care Start Date 10/13/24 Plan of Care End Date 11/24/24 Next Visit Focus/Plan Next Note Type Treatment Note Next Visit Plan Trial use 4WW outdoors.
--- NOTE | 2024-10-31 09:00 | PT.OTN ---
Current Diagnoses Cerebral infarction due to thrombosis of right middle cerebral artery (10/31/24) Physical Therapy Treatment Note PT-OP-A Visit Information Start: 08/16/24 17:19 Freq: Status: Active Protocol: Document 10/31/24 08:12 SAK (Rec: 10/31/24 09:00 SAK Laptop) Out-Patient Physical Therapy Visit Information Visit Information Visit Type Treatment Note Visit Start Time 08:15 Visit Stop Time 08:59 Visit Number 14 Number of CERTIFIED SUBSTANCE ABUSE COUNSELOR Visits 0 Evaluation Information Evaluation Date 08/23/24 Precautions Precautions macular degeneration; can't read, light sensitivity PT-OP-B Current Condition Start: 08/16/24 17:19 Freq: Status: Active Protocol: Document 10/31/24 08:12 SAK (Rec: 10/31/24 09:00 SAK Laptop) Current Condition History of Current Condition Onset Date 07/27/24 Current Complaints fatigue, weakness History of Current Condition July 27 had a CVA; difficulty walking . Prior CVA 2002 affected right side. Also recent right hip pain after CVA, now not as bad, though tender to the touch. Day of CVA stayed in bed, was fatigued. At 5pm called the ambuilance because she wouldn't get out of bed. Had expressive aphasia, though resolved same day. Has vague memory of day of CVA. Now feels more tired, sleeps a lot. Drinks minimal water, history of only 1 UTI per patient. No regular exercise since the CVA. Has had PT previously but doesn't do exercises. Has fallen multiple times since CVA; 2 bad, went to doctor 1x no serious injury. Last time PT was taught how to walk with a cane but hasn't been using. won't let her go outside without help. Was going to exercise class at [employer] prior to CVA, hasn't gone back yet. PT-OP-C Subjective Start: 08/16/24 17:19 Freq: Status: Active Protocol: Document 10/31/24 08:12 SAK (Rec: 10/31/24 09:00 SAK Laptop) OP-PT Subjective Patient Comments Patient Comments Interested in getting 4WW for use outside. PT-OP-D Balance Start: 08/16/24 17:19 Freq: Status: Active Protocol: Document 10/13/24 10:45 AB (Rec: 10/13/24 12:34 AB [id number]) Schaefer Balance Assessment Total Score Schaefer Impairment Rating 1 to 19% Impaired (Score 45-55 ) PT-OP-E Functional Tests Start: 08/16/24 17:19 Freq: Status: Active Protocol: Document 10/13/24 10:45 AB (Rec: 10/13/24 12:35 AB [id number]) Functional Tests Dynamic Gait Index (DGI) DGI Impairment Rating 20 to <40% Impaired (Score 15- 19) PT-OP-G Mobility & Gait Start: 08/16/24 17:19 Freq: Status: Active Protocol: Document 08/17/24 09:01 [facility] (Rec: 08/23/24 08:57 SAK [id number]) OP Gait Assessment Gait Gait Assistance Required: Standby Assistance Assistive Devices Assistive Device None Gait Deviations General Gait Pattern Antalgic Stair Climbing Evaluation Evaluation Level of Assist On Stairs Standby Assistance Devices Stair Climbing Assistive Devices Left Railing,Right Railing Technique/Endurance Stair Climbing Direction Ascend and Descend Stair Climbing Technique Step Over Step Number of Steps Climbed 4 PT-OP-H Neuro Start: 08/16/24 17:19 Freq: Status: Active Protocol: Document 08/17/24 09:01 [facility] (Rec: 08/23/24 08:57 [facility] [id number]) Sensation Evaluation Gross Sensation Gross Sensation WNL Vital Signs Pulse 1 Pulse at Rest (bpm) 74 Pulse Assessment Method Palpation Blood Pressure Sitting Blood Pressure (90/60-120/80 mmHg) 134/82 H Blood Pressure Source Manual Cuff,Left Upper Extremity PT-OP-L Special Tests Start: 08/16/24 17:19 Freq: Status: Active Protocol: Document 08/17/24 09:01 [facility] (Rec: 08/23/24 08:57 [facility] [id number]) Special Tests Hip Special Tests Piriformis Test Results Negative ESTELA Test Results Negative PT-OP-M Strength Start: 08/16/24 17:19 Freq: Status: Active Protocol: Document 08/17/24 09:01 SAK (Rec: 08/23/24 08:57 SAK [id number]) Hip Strength Hip Manual Muscle Testing Left Flexion (L2) 4- Good- Extension (S1) 3+ Fair+ Abduction 4- Good- Adduction 4- Good- External Rotation 4- Good- Internal Rotation 4- Good- Right Flexion (L2) 3+ Fair+ Extension (S1) 3- Fair- Abduction 3+ Fair+ Adduction 3+ Fair+ External Rotation 4- Good- Knee Strength Knee Manual Muscle Testing Left Flexion (S2) 4+ Good+ Extension (L3) 4+ Good+ Right Flexion (S2) 4 Good Extension (L3) 4 Good Ankle/Foot Strength Ankle and Foot Manual Muscle Testing Left Dorsiflexion (L4) 4 Good Plantarflexion (S1) 4 Good Right Dorsiflexion (L4) 4+ Good+ Plantarflexion (S1) 4- Good- PT-OP-Q Treatments Start: 08/16/24 17:19 Freq: Status: Active Protocol: Document 10/31/24 08:12 [facility] (Rec: 10/31/24 09:00 [facility] Laptop) Cardio Equipment Recumbent Stepper (Sci-Fit) Duration (Minutes) 10 Resistance 2-4 (window shade pulled) Seat Position 11 Other BUEs& BLEs, 0.86 miles Gym Equipment Shuttle Recovery Unilateral Squats Details cued slower pacing eccentric control Resistance 37 Shuttle Recovery Platform Stable Reps/Time X 10 each LE Bilateral Squats Details good slower pacing Resistance 87# (3 navy bands) Shuttle Recovery Platform Stable Reps/Time X 5 62 # then 50# X10 L, 62# R X 15 Shuttle Balance shuttle balance Details red chains, bal and wt shift f /b,side Reps/Duration visual scanning and head turns Comments CG to SBA, frequent use of UE s Gait Training Gait Activity 4WW Description outdoor Device Used SBA and cues Distance/Duration 100 ft Treatment Focus safe use outdoors Comments pavement, incline, sidewalk, bumps, curb cuts practiced safe locking and turning to sit PT-OP-T Assessment and Plan Start: 08/16/24 17:19 Freq: Status: Active Protocol: Document 10/31/24 08:12 [facility] (Rec: 10/31/24 09:00 [facility] Laptop) Physical Therapy Assessment Goals right hip pain Impairment right lateral hip pain 5/10 pain scale Prison Goal (LTG) Decrease pain to no greater than 2/10 as measure of decreased pain and improved right hip function Patient reports she hasn't had hip pain since her first visit. LTG Duration goal met activity tolerance Impairment 6 min walk test 1099 ft Prison Goal (LTG) Improve 6 min walk test to at least 1300 ft. 09/26/2024 6 min walk test 1165. 7 ft 10/13/24: not retested today; 1167.5 ft last session, improved LTG Duration 11/24/24 strength Impairment impaired functional LE strength stephania; 5x sit to stand 23 sec with use of rea Engagement Director Goal (LTG) Improve functional LE strength as evidenced by patient able to move from sit to stand 5x in no more than 10 seconds without UE assist and be able to perform a floor transfer independently 09/26/2024 sit to stand X5 16.2 sec LTG Duration 11/24/24 Dynamic balance Impairment impaired dynamic balance, unable to stand on 1 foot Impairment DGI ; FGA 07/25 Prison Goal (LTG) Patient will improve dynamic balance and safety as measured by ability to balance on 1 foot for at least 10 seconds 10/13/24: SLS R 5 sec L 1 sec without UE use ( measured post DGI, sit to stand X 5) DGI score, FGA LTG Duration 11/24/24 Assessment Summary Assessment Patient ambulated faster and with more confidence outside using 4WW. Patient to go to [employer] to try to get 4WW tomorrow. Physical Therapy Plan Frequency and Duration Frequency of Treatment 2x/Week Duration of treatment (weeks) 6 Plan of Care Start Date 10/13/24 Plan of Care End Date 11/24/24 Therapeutic Interventions Therapeutic Interventions Balance Training,Home Exercise Program,Neuromuscular Re- education,Patient/Caregiver Education,Self-Care/Home Management,Therapeutic Activities,Therapeutic Exercises Modalities Cold Pack/Ice Massage,Hot Packs Next Visit Focus/Plan Next Note Type Treatment Note Next Visit Plan Assure good fit of 4WW if obtains, continue strengthening, gait training, balance training.
--- NOTE | 2024-11-02 09:00 | PT.OTN ---
Current Diagnoses Cerebral infarction due to thrombosis of right middle cerebral artery (11/02/24) Physical Therapy Treatment Note PT-OP-A Visit Information Start: 08/16/24 17:19 Freq: Status: Active Protocol: Document 11/02/24 08:12 SAK (Rec: 11/02/24 09:00 SAK Laptop) Out-Patient Physical Therapy Visit Information Visit Information Visit Type Treatment Note Visit Start Time 08:15 Visit Stop Time 08:58 Visit Number 15 Number of CUSTOM MARINE CANVAS FABRICATOR Visits 0 Evaluation Information Evaluation Date 08/23/24 Precautions Precautions macular degeneration; can't read, light sensitivity PT-OP-B Current Condition Start: 08/16/24 17:19 Freq: Status: Active Protocol: Document 11/02/24 08:12 SAK (Rec: 11/02/24 09:00 SAK Laptop) Current Condition History of Current Condition Onset Date 07/27/24 Current Complaints fatigue, weakness History of Current Condition July 27 had a CVA; difficulty walking . Prior CVA 2002 affected right side. Also recent right hip pain after CVA, now not as bad, though tender to the touch. Day of CVA stayed in bed, was fatigued. At 5pm called the ambuilance because she wouldn't get out of bed. Had expressive aphasia, though resolved same day. Has vague memory of day of CVA. Now feels more tired, sleeps a lot. Drinks minimal water, history of only 1 UTI per patient. No regular exercise since the CVA. Has had PT previously but doesn't do exercises. Has fallen multiple times since CVA; 2 bad, went to doctor 1x no serious injury. Last time PT was taught how to walk with a cane but hasn't been using. won't let her go outside without help. Was going to exercise class at [employer] prior to CVA, hasn't gone back yet. PT-OP-C Subjective Start: 08/16/24 17:19 Freq: Status: Active Protocol: Document 11/02/24 08:12 SAK (Rec: 11/02/24 09:00 SAK Laptop) OP-PT Subjective Patient Comments Patient Comments Has ordered a 4WW PT-OP-D Balance Start: 08/16/24 17:19 Freq: Status: Active Protocol: Document 10/13/24 10:45 AB (Rec: 10/13/24 12:34 AB [id number]) Schaefer Balance Assessment Total Score Schaefer Impairment Rating 1 to 19% Impaired (Score 45-55 ) PT-OP-E Functional Tests Start: 08/16/24 17:19 Freq: Status: Active Protocol: Document 10/13/24 10:45 AB (Rec: 10/13/24 12:35 AB [id number]) Functional Tests Dynamic Gait Index (DGI) DGI Impairment Rating 20 to <40% Impaired (Score 15- 19) PT-OP-G Mobility & Gait Start: 08/16/24 17:19 Freq: Status: Active Protocol: Document 08/17/24 09:01 SAK (Rec: 08/23/24 08:57 SAK [id number]) OP Gait Assessment Gait Gait Assistance Required: Standby Assistance Assistive Devices Assistive Device None Gait Deviations General Gait Pattern Antalgic Stair Climbing Evaluation Evaluation Level of Assist On Stairs Standby Assistance Devices Stair Climbing Assistive Devices Left Railing,Right Railing Technique/Endurance Stair Climbing Direction Ascend and Descend Stair Climbing Technique Step Over Step Number of Steps Climbed 4 PT-OP-H Neuro Start: 08/16/24 17:19 Freq: Status: Active Protocol: Document 08/17/24 09:01 SAK (Rec: 08/23/24 08:57 SAK [id number]) Sensation Evaluation Gross Sensation Gross Sensation WNL Vital Signs Pulse 1 Pulse at Rest (bpm) 74 Pulse Assessment Method Palpation Blood Pressure Sitting Blood Pressure (90/60-120/80 mmHg) 134/82 H Blood Pressure Source Manual Cuff,Left Upper Extremity PT-OP-L Special Tests Start: 08/16/24 17:19 Freq: Status: Active Protocol: Document 08/17/24 09:01 SAK (Rec: 08/23/24 08:57 SAK [id number]) Special Tests Hip Special Tests Piriformis Test Results Negative ESTELA Test Results Negative PT-OP-M Strength Start: 08/16/24 17:19 Freq: Status: Active Protocol: Document 08/17/24 09:01 SAK (Rec: 08/23/24 08:57 SAK [id number]) Hip Strength Hip Manual Muscle Testing Left Flexion (L2) 4- Good- Extension (S1) 3+ Fair+ Abduction 4- Good- Adduction 4- Good- External Rotation 4- Good- Internal Rotation 4- Good- Right Flexion (L2) 3+ Fair+ Extension (S1) 3- Fair- Abduction 3+ Fair+ Adduction 3+ Fair+ External Rotation 4- Good- Knee Strength Knee Manual Muscle Testing Left Flexion (S2) 4+ Good+ Extension (L3) 4+ Good+ Right Flexion (S2) 4 Good Extension (L3) 4 Good Ankle/Foot Strength Ankle and Foot Manual Muscle Testing Left Dorsiflexion (L4) 4 Good Plantarflexion (S1) 4 Good Right Dorsiflexion (L4) 4+ Good+ Plantarflexion (S1) 4- Good- PT-OP-Q Treatments Start: 08/16/24 17:19 Freq: Status: Active Protocol: Document 11/02/24 08:12 SAK (Rec: 11/02/24 09:00 SAK Laptop) Cardio Equipment Recumbent Stepper (Sci-Fit) Duration (Minutes) 11 Resistance 2-4 (window shade pulled) Seat Position 12 Other BUEs& BLEs, 1.0 miles Gym Equipment Shuttle Recovery Unilateral Squats Details cued slower pacing eccentric control Resistance 37 Shuttle Recovery Platform Stable Reps/Time X 10 each LE Bilateral Squats Details good slower pacing Resistance 62 Shuttle Recovery Platform Stable Reps/Time 10x2 Shuttle Balance shuttle balance Details red chains, bal and wt shift f /b,side Reps/Duration visual scanning and head turns Comments CG to SBA, frequent use of UE s Gait Training Gait Activity 4WW Description indoor turns, different surfaces, sitting on walker Device Used SBA and cues Surface low carpet, tile Distance/Duration 100 ft Treatment Focus safe use outdoors Comments continue education safe locking and turning. Neuro Re-Education Treatment Balance Activities BOSU Details bal, step ups Reps/Duration 4 min Comments CGA uneven surface Details fwd receiprocal steppin hurdles on mat over uneven surface, 6 box Reps/Duration 8x Comments CG- A, cues for increase step height and trail> lead foot DF clearance. - R toe catches kaden trail> lead foot Min A recovery, improves with cues for DF, slower pacing. PT-OP-T Assessment and Plan Start: 08/16/24 17:19 Freq: Status: Active Protocol: Document 11/02/24 08:12 SAK (Rec: 11/02/24 09:00 SAK Laptop) Physical Therapy Assessment Goals right hip pain Impairment right lateral hip pain 5/10 pain scale Bridge/Structure Inspection Team Leader Goal (LTG) Decrease pain to no greater than 2/10 as measure of decreased pain and improved right hip function Patient reports she hasn't had hip pain since her first visit. LTG Duration goal met activity tolerance Impairment 6 min walk test 1099 ft Skilled Nursing Goal (LTG) Improve 6 min walk test to at least 1300 ft. 09/26/2024 6 min walk test 1165. 7 ft 10/13/24: not retested today; 1167.5 ft last session, improved LTG Duration 11/24/24 strength Impairment impaired functional LE strength stephania; 5x sit to stand 23 sec with use of rea Bridge/Structure Inspection Team Leader Goal (LTG) Improve functional LE strength as evidenced by patient able to move from sit to stand 5x in no more than 10 seconds without UE assist and be able to perform a floor transfer independently 09/26/2024 sit to stand X5 16.2 sec LTG Duration 11/24/24 Dynamic balance Impairment impaired dynamic balance, unable to stand on 1 foot Impairment DGI ; FGA 07/25 Bridge/Structure Inspection Team Leader Goal (LTG) Patient will improve dynamic balance and safety as measured by ability to balance on 1 foot for at least 10 seconds 10/13/24: SLS R 5 sec L 1 sec without UE use ( measured post DGI, sit to stand X 5) DGI score, FGA LTG Duration 11/24/24 Assessment Summary Assessment Demonstrated improved understanding use of 4WW including going around obstacles. Bosu challenging with increased need for UE support.l Physical Therapy Plan Frequency and Duration Frequency of Treatment 2x/Week Duration of treatment (weeks) 6 Plan of Care Start Date 10/13/24 Plan of Care End Date 11/24/24 Therapeutic Interventions Therapeutic Interventions Balance Training,Home Exercise Program,Neuromuscular Re- education,Patient/Caregiver Education,Self-Care/Home Management,Therapeutic Activities,Therapeutic Exercises Modalities Cold Pack/Ice Massage,Hot Packs Next Visit Focus/Plan Next Note Type Treatment Note Next Visit Plan Assure good fit of 4WW supposed to come Thursday, continue strengthening, gait training, balance training.
--- NOTE | 2024-11-09 10:01 | PT.OTN ---
Current Diagnoses Cerebral infarction due to thrombosis of right middle cerebral artery (11/09/24) Physical Therapy Treatment Note PT-OP-A Visit Information Start: 08/16/24 17:19 Freq: Status: Active Protocol: Document 11/09/24 08:54 AB (Rec: 11/09/24 10:00 AB Laptop) Out-Patient Physical Therapy Visit Information Visit Information Visit Type Treatment Note Visit Start Time 09:01 Visit Stop Time 09:48 Visit Number 16 Number of JOB COST ESTIMATOR Visits 1 Evaluation Information Evaluation Date 08/23/24 PT-OP-B Current Condition Start: 08/16/24 17:19 Freq: Status: Active Protocol: Document 11/02/24 08:12 SAK (Rec: 11/02/24 09:00 SAK Laptop) Current Condition History of Current Condition Onset Date 07/27/24 Current Complaints fatigue, weakness History of Current Condition July 27 had a CVA; difficulty walking . Prior CVA 2002 affected right side. Also recent right hip pain after CVA, now not as bad, though tender to the touch. Day of CVA stayed in bed, was fatigued. At 5pm called the ambuilance because she wouldn't get out of bed. Had expressive aphasia, though resolved same day. Has vague memory of day of CVA. Now feels more tired, sleeps a lot. Drinks minimal water, history of only 1 UTI per patient. No regular exercise since the CVA. Has had PT previously but doesn't do exercises. Has fallen multiple times since CVA; 2 bad, went to doctor 1x no serious injury. Last time PT was taught how to walk with a cane but hasn't been using. won't let her go outside without help. Was going to exercise class at [employer] prior to CVA, hasn't gone back yet. PT-OP-C Subjective Start: 08/16/24 17:19 Freq: Status: Active Protocol: Document 11/09/24 08:54 AB (Rec: 11/09/24 10:00 AB Laptop) OP-PT Subjective Patient Comments Patient Comments Patient initiates sit to stand by reaching for unlocked 4 wheeled walker. Patient reports she used 4 wheeled walker outdoors once. PT-OP-D Balance Start: 08/16/24 17:19 Freq: Status: Active Protocol: Document 10/13/24 10:45 AB (Rec: 10/13/24 12:34 AB [id number]) Schaefer Balance Assessment Total Score Schaefer Impairment Rating 1 to 19% Impaired (Score 45-55 ) PT-OP-E Functional Tests Start: 08/16/24 17:19 Freq: Status: Active Protocol: Document 10/13/24 10:45 AB (Rec: 10/13/24 12:35 AB [id number]) Functional Tests Dynamic Gait Index (DGI) DGI Impairment Rating 20 to <40% Impaired (Score 15- 19) PT-OP-G Mobility & Gait Start: 08/16/24 17:19 Freq: Status: Active Protocol: Document 08/17/24 09:01 SAK (Rec: 08/23/24 08:57 SAK [id number]) OP Gait Assessment Gait Gait Assistance Required: Standby Assistance Assistive Devices Assistive Device None Gait Deviations General Gait Pattern Antalgic Stair Climbing Evaluation Evaluation Level of Assist On Stairs Standby Assistance Devices Stair Climbing Assistive Devices Left Railing,Right Railing Technique/Endurance Stair Climbing Direction Ascend and Descend Stair Climbing Technique Step Over Step Number of Steps Climbed 4 PT-OP-H Neuro Start: 08/16/24 17:19 Freq: Status: Active Protocol: Document 08/17/24 09:01 SAK (Rec: 08/23/24 08:57 SAK [id number]) Sensation Evaluation Gross Sensation Gross Sensation WNL Vital Signs Pulse 1 Pulse at Rest (bpm) 74 Pulse Assessment Method Palpation Blood Pressure Sitting Blood Pressure (90/60-120/80 mmHg) 134/82 H Blood Pressure Source Manual Cuff,Left Upper Extremity PT-OP-L Special Tests Start: 08/16/24 17:19 Freq: Status: Active Protocol: Document 08/17/24 09:01 SAK (Rec: 08/23/24 08:57 SAK [id number]) Special Tests Hip Special Tests Piriformis Test Results Negative ESTELA Test Results Negative PT-OP-M Strength Start: 08/16/24 17:19 Freq: Status: Active Protocol: Document 08/17/24 09:01 SAK (Rec: 08/23/24 08:57 SAK [id number]) Hip Strength Hip Manual Muscle Testing Left Flexion (L2) 4- Good- Extension (S1) 3+ Fair+ Abduction 4- Good- Adduction 4- Good- External Rotation 4- Good- Internal Rotation 4- Good- Right Flexion (L2) 3+ Fair+ Extension (S1) 3- Fair- Abduction 3+ Fair+ Adduction 3+ Fair+ External Rotation 4- Good- Knee Strength Knee Manual Muscle Testing Left Flexion (S2) 4+ Good+ Extension (L3) 4+ Good+ Right Flexion (S2) 4 Good Extension (L3) 4 Good Ankle/Foot Strength Ankle and Foot Manual Muscle Testing Left Dorsiflexion (L4) 4 Good Plantarflexion (S1) 4 Good Right Dorsiflexion (L4) 4+ Good+ Plantarflexion (S1) 4- Good- PT-OP-Q Treatments Start: 08/16/24 17:19 Freq: Status: Active Protocol: Document 11/09/24 08:54 AB (Rec: 11/09/24 10:00 AB Laptop) Therapeutic Exercises Sitting Exercises hip abduction Sitting Exercise Name HEP Side bilateral Resistance TB #4 royal blue Reps/Minutes X 15 without hold, 1 min Comments Review Standing Exercises Hip ext Standing Exercise Name with UE support Side bilateral Reps/Minutes 4# X 15 each LE Comments verbal cues for small movements hip abd Equipment Used 4# Reps/Minutes side stepping L and right 10 feet X 3 Comments verbal cues to avoid toeing out with UE support heel raise Standing Exercise Name HEP Equipment Used parallel bars Reps/Minutes X15 Comments cues for slow, UE support as needed Therapeutic Activity Therapeutic Activity amb with 4WW Name outddoors, inclines/declines, adjusted for height Comments 25 min Focus on using break to decelerate declines and curbs outdoors, indoors focus on braking and prior to stand to sit, also practice breaking and sitting on walker seat, also using walker for positioning for breathlessness if in a chair. Also, spouse made aware of brake function for stopping and for decelerating and how to change height if needed to fit walker into car. Neuro Re-Education Treatment Balance Activities BOSU Details marching Reps/Duration 2 min CGA Comments Inc use of rails PT-OP-T Assessment and Plan Start: 08/16/24 17:19 Freq: Status: Active Protocol: Document 11/09/24 08:54 AB (Rec: 11/09/24 10:00 AB Laptop) Physical Therapy Assessment Goals right hip pain Impairment right lateral hip pain 5/10 pain scale Maintenance Engineer Goal (LTG) Decrease pain to no greater than 2/10 as measure of decreased pain and improved right hip function Patient reports she hasn't had hip pain since her first visit. LTG Duration goal met activity tolerance Impairment 6 min walk test 1099 ft Maintenance Engineer Goal (LTG) Improve 6 min walk test to at least 1300 ft. 09/26/2024 6 min walk test 1165. 7 ft 10/13/24: not retested today; 1167.5 ft last session, improved LTG Duration 11/24/24 strength Impairment impaired functional LE strength stephania; 5x sit to stand 23 sec with use of rea Mcfp Goal (LTG) Improve functional LE strength as evidenced by patient able to move from sit to stand 5x in no more than 10 seconds without UE assist and be able to perform a floor transfer independently 09/26/2024 sit to stand X5 16.2 sec LTG Duration 11/24/24 Dynamic balance Impairment impaired dynamic balance, unable to stand on 1 foot Impairment DGI ; FGA 07/25 Mcfp Goal (LTG) Patient will improve dynamic balance and safety as measured by ability to balance on 1 foot for at least 10 seconds 10/13/24: SLS R 5 sec L 1 sec without UE use ( measured post DGI, sit to stand X 5) DGI score, FGA LTG Duration 11/24/24 Assessment Summary Assessment Good return demonstration for breaking on declines with 4 wheeled walker, increased verbal cues and slight delay prior to performing without cues, locking breaks prior to sit to stand, and increased verbal cues for hand positions during sit to stand. Physical Therapy Plan Frequency and Duration Frequency of Treatment 2x/Week Duration of treatment (weeks) 6 Plan of Care Start Date 10/13/24 Plan of Care End Date 11/24/24 Next Visit Focus/Plan Next Note Type Treatment Note Next Visit Plan Continue Four wheeled walker review as needed continue strengthening, gait training, balance training.
--- NOTE | 2024-11-17 10:37 | PT.OTN ---
Current Diagnoses Cerebral infarction due to thrombosis of right middle cerebral artery (11/17/24) Physical Therapy Treatment Note PT-OP-A Visit Information Start: 08/16/24 17:19 Freq: Status: Active Protocol: Document 11/17/24 08:13 AB (Rec: 11/17/24 10:05 AB Laptop) Out-Patient Physical Therapy Visit Information Visit Information Visit Type Treatment Note Visit Start Time 09:02 Visit Stop Time 09:43 Visit Number 17 Number of REMANUFACTURING TECHNICIAN Visits 2 Evaluation Information Evaluation Date 08/23/24 PT-OP-B Current Condition Start: 08/16/24 17:19 Freq: Status: Active Protocol: Document 11/02/24 08:12 SAK (Rec: 11/02/24 09:00 SAK Laptop) Current Condition History of Current Condition Onset Date 07/27/24 Current Complaints fatigue, weakness History of Current Condition July 27 had a CVA; difficulty walking . Prior CVA 2002 affected right side. Also recent right hip pain after CVA, now not as bad, though tender to the touch. Day of CVA stayed in bed, was fatigued. At 5pm called the ambuilance because she wouldn't get out of bed. Had expressive aphasia, though resolved same day. Has vague memory of day of CVA. Now feels more tired, sleeps a lot. Drinks minimal water, history of only 1 UTI per patient. No regular exercise since the CVA. Has had PT previously but doesn't do exercises. Has fallen multiple times since CVA; 2 bad, went to doctor 1x no serious injury. Last time PT was taught how to walk with a cane but hasn't been using. won't let her go outside without help. Was going to exercise class at [employer] prior to CVA, hasn't gone back yet. PT-OP-C Subjective Start: 08/16/24 17:19 Freq: Status: Active Protocol: Document 11/17/24 08:13 AB (Rec: 11/17/24 10:05 AB Laptop) OP-PT Subjective Patient Comments Patient Comments Patient into session without device. Patient reports she is fine, is concerned about spouses skin cancer. Patient reports she hasn't had any falls is doing her exercises, and has been out walking with 4 wheeled walker when the weather is nice. PT-OP-D Balance Start: 08/16/24 17:19 Freq: Status: Active Protocol: Document 10/13/24 10:45 AB (Rec: 10/13/24 12:34 AB [id number]) Schaefer Balance Assessment Total Score Schaefer Impairment Rating 1 to 19% Impaired (Score 45-55 ) PT-OP-E Functional Tests Start: 08/16/24 17:19 Freq: Status: Active Protocol: Document 10/13/24 10:45 AB (Rec: 10/13/24 12:35 AB [id number]) Functional Tests Dynamic Gait Index (DGI) DGI Impairment Rating 20 to <40% Impaired (Score 15- 19) PT-OP-G Mobility & Gait Start: 08/16/24 17:19 Freq: Status: Active Protocol: Document 08/17/24 09:01 SAK (Rec: 08/23/24 08:57 SAK [id number]) OP Gait Assessment Gait Gait Assistance Required: Standby Assistance Assistive Devices Assistive Device None Gait Deviations General Gait Pattern Antalgic Stair Climbing Evaluation Evaluation Level of Assist On Stairs Standby Assistance Devices Stair Climbing Assistive Devices Left Railing,Right Railing Technique/Endurance Stair Climbing Direction Ascend and Descend Stair Climbing Technique Step Over Step Number of Steps Climbed 4 PT-OP-H Neuro Start: 08/16/24 17:19 Freq: Status: Active Protocol: Document 08/17/24 09:01 SAK (Rec: 08/23/24 08:57 SAK [id number]) Sensation Evaluation Gross Sensation Gross Sensation WNL Vital Signs Pulse 1 Pulse at Rest (bpm) 74 Pulse Assessment Method Palpation Blood Pressure Sitting Blood Pressure (90/60-120/80 mmHg) 134/82 H Blood Pressure Source Manual Cuff,Left Upper Extremity PT-OP-L Special Tests Start: 08/16/24 17:19 Freq: Status: Active Protocol: Document 08/17/24 09:01 SAK (Rec: 08/23/24 08:57 SAK [id number]) Special Tests Hip Special Tests Piriformis Test Results Negative ESTELA Test Results Negative PT-OP-M Strength Start: 08/16/24 17:19 Freq: Status: Active Protocol: Document 08/17/24 09:01 SAK (Rec: 08/23/24 08:57 SAK [id number]) Hip Strength Hip Manual Muscle Testing Left Flexion (L2) 4- Good- Extension (S1) 3+ Fair+ Abduction 4- Good- Adduction 4- Good- External Rotation 4- Good- Internal Rotation 4- Good- Right Flexion (L2) 3+ Fair+ Extension (S1) 3- Fair- Abduction 3+ Fair+ Adduction 3+ Fair+ External Rotation 4- Good- Knee Strength Knee Manual Muscle Testing Left Flexion (S2) 4+ Good+ Extension (L3) 4+ Good+ Right Flexion (S2) 4 Good Extension (L3) 4 Good Ankle/Foot Strength Ankle and Foot Manual Muscle Testing Left Dorsiflexion (L4) 4 Good Plantarflexion (S1) 4 Good Right Dorsiflexion (L4) 4+ Good+ Plantarflexion (S1) 4- Good- PT-OP-Q Treatments Start: 08/16/24 17:19 Freq: Status: Active Protocol: Document 11/17/24 08:13 AB (Rec: 11/17/24 10:05 AB Laptop) Gym Equipment Shuttle Recovery Bilateral Squats Details good slower pacing Resistance 62 then 75 # (2 navy one teal) Shuttle Recovery Platform Stable Reps/Time X 15 each, VC for dec velocity with ecc Therapeutic Exercises Sitting Exercises pillow push Sitting Exercise Name to activate core Reps/Minutes 30 sec X2 Comments verbal cues core warm up Sitting Exercise Name 1. shoulder flex 2. trunk rotation Side bilateral Reps/Minutes X 5 reps end ROM then X 5 Comments verbal and visual cues hip abduction Sitting Exercise Name HEP Side bilateral Resistance TB #4 royal blue Reps/Minutes X 15 without hold, 1 min Comments Review SIT TO STAND Side bilateral Resistance with level 4 band tied above knees Reps/Minutes X 10 with band with UE use CGA , X 10 w/o band and UE use Comments VC to keep tension on band Standing Exercises Hip ext Standing Exercise Name with UE support Side bilateral Reps/Minutes 4# X 15 each LE Comments verbal cues for small movements resisted stepping Standing Exercise Name side step Resistance Tb #4 above knees Equipment Used rail light glide 1 UE Reps/Minutes 10 feet left and right X 3 VC to avoid toeing out gastroc/soleus stretch Standing Exercise Name on NAIMA Side bilateral Reps/Minutes 60 sec X 1 each LE then one LE on NAIMA step through opp LE X 10 each Comments Verbal cues heel raise Standing Exercise Name single leg with UE support Equipment Used parallel bars Reps/Minutes X 10 Comments verbal cues for set up, monitored for pain Neuro Re-Education Treatment Balance Activities obstacle course Details mat with therapads and mat with therapods Reps/Duration X 2 each Comments CGA to minimal assist step up taps Details CGA hands above bars standing on foam Equipment 6 inch step Reps/Duration X10 wall fall Reps/Duration X10 Comments Pillow behind back close supervision BOSU Details marching, step ups Reps/Duration 3 min CGA Comments Inc use of rails with step ups , but initiates without use of rail PT-OP-T Assessment and Plan Start: 08/16/24 17:19 Freq: Status: Active Protocol: Document 11/17/24 08:13 AB (Rec: 11/17/24 10:05 AB Laptop) Physical Therapy Assessment Goals right hip pain Impairment right lateral hip pain 5/10 pain scale Care Home Goal (LTG) Decrease pain to no greater than 2/10 as measure of decreased pain and improved right hip function Patient reports she hasn't had hip pain since her first visit. LTG Duration goal met activity tolerance Impairment 6 min walk test 1099 ft Engineer And Geologist Goal (LTG) Improve 6 min walk test to at least 1300 ft. 09/26/2024 6 min walk test 1165. 7 ft 10/13/24: not retested today; 1167.5 ft last session, improved LTG Duration 11/24/24 strength Impairment impaired functional LE strength stephania; 5x sit to stand 23 sec with use of rea Care Home Goal (LTG) Improve functional LE strength as evidenced by patient able to move from sit to stand 5x in no more than 10 seconds without UE assist and be able to perform a floor transfer independently 09/26/2024 sit to stand X5 16.2 sec LTG Duration 11/24/24 Dynamic balance Impairment impaired dynamic balance, unable to stand on 1 foot Impairment DGI ; FGA 07/25 Engineer And Geologist Goal (LTG) Patient will improve dynamic balance and safety as measured by ability to balance on 1 foot for at least 10 seconds 10/13/24: SLS R 5 sec L 1 sec without UE use ( measured post DGI, sit to stand X 5) DGI score, FGA LTG Duration 11/24/24 Assessment Summary Assessment Patient comments she feels good about this session end of session. Vkiy reports having no pain end of session. Discussed more training out doors with 4 wheeled walker as patient reports spouse does not want her to walk as far as she wants to. Physical Therapy Plan Frequency and Duration Frequency of Treatment 2x/Week Duration of treatment (weeks) 6 Plan of Care Start Date 10/13/24 Plan of Care End Date 11/24/24 Next Visit Focus/Plan Next Note Type Treatment Note Next Visit Plan Continue Four wheeled walker review as needed continue strengthening, gait training, balance training.
--- NOTE | 2024-11-23 10:32 | PT.OTN ---
Current Diagnoses Cerebral infarction due to thrombosis of right middle cerebral artery (11/23/24) Physical Therapy Treatment Note PT-OP-A Visit Information Start: 08/16/24 17:19 Freq: Status: Active Protocol: Document 11/23/24 09:44 SAK (Rec: 11/23/24 10:32 SAK Laptop) Out-Patient Physical Therapy Visit Information Visit Information Visit Type Treatment Note Visit Start Time 09:45 Visit Stop Time 10:30 Visit Number 18 Number of IRRIGATION TEACHER Visits 0 Evaluation Information Evaluation Date 08/23/24 PT-OP-B Current Condition Start: 08/16/24 17:19 Freq: Status: Active Protocol: Document 11/23/24 09:44 SAK (Rec: 11/23/24 10:32 SAK Laptop) Current Condition History of Current Condition Onset Date 07/27/24 Current Complaints fatigue, weakness History of Current Condition July 27 had a CVA; difficulty walking . Prior CVA 2002 affected right side. Also recent right hip pain after CVA, now not as bad, though tender to the touch. Day of CVA stayed in bed, was fatigued. At 5pm called the ambuilance because she wouldn't get out of bed. Had expressive aphasia, though resolved same day. Has vague memory of day of CVA. Now feels more tired, sleeps a lot. Drinks minimal water, history of only 1 UTI per patient. No regular exercise since the CVA. Has had PT previously but doesn't do exercises. Has fallen multiple times since CVA; 2 bad, went to doctor 1x no serious injury. Last time PT was taught how to walk with a cane but hasn't been using. won't let her go outside without help. Was going to exercise class at [employer] prior to CVA, hasn't gone back yet. PT-OP-C Subjective Start: 08/16/24 17:19 Freq: Status: Active Protocol: Document 11/23/24 09:44 SAK (Rec: 11/23/24 10:32 SAK Laptop) OP-PT Subjective Patient Comments Patient Comments States it feels too cold to walk outside today, did not bring 4WW. PT-OP-D Balance Start: 08/16/24 17:19 Freq: Status: Active Protocol: Document 10/13/24 10:45 AB (Rec: 10/13/24 12:34 AB [id number]) Schaefer Balance Assessment Total Score Schaefer Impairment Rating 1 to 19% Impaired (Score 45-55 ) PT-OP-E Functional Tests Start: 08/16/24 17:19 Freq: Status: Active Protocol: Document 10/13/24 10:45 AB (Rec: 10/13/24 12:35 AB [id number]) Functional Tests Dynamic Gait Index (DGI) DGI Impairment Rating 20 to <40% Impaired (Score 15- 19) PT-OP-G Mobility & Gait Start: 08/16/24 17:19 Freq: Status: Active Protocol: Document 08/17/24 09:01 SAK (Rec: 08/23/24 08:57 SAK [id number]) OP Gait Assessment Gait Gait Assistance Required: Standby Assistance Assistive Devices Assistive Device None Gait Deviations General Gait Pattern Antalgic Stair Climbing Evaluation Evaluation Level of Assist On Stairs Standby Assistance Devices Stair Climbing Assistive Devices Left Railing,Right Railing Technique/Endurance Stair Climbing Direction Ascend and Descend Stair Climbing Technique Step Over Step Number of Steps Climbed 4 PT-OP-H Neuro Start: 08/16/24 17:19 Freq: Status: Active Protocol: Document 08/17/24 09:01 SAK (Rec: 08/23/24 08:57 SAK [id number]) Sensation Evaluation Gross Sensation Gross Sensation WNL Vital Signs Pulse 1 Pulse at Rest (bpm) 74 Pulse Assessment Method Palpation Blood Pressure Sitting Blood Pressure (90/60-120/80 mmHg) 134/82 H Blood Pressure Source Manual Cuff,Left Upper Extremity PT-OP-L Special Tests Start: 08/16/24 17:19 Freq: Status: Active Protocol: Document 08/17/24 09:01 SAK (Rec: 08/23/24 08:57 SAK [id number]) Special Tests Hip Special Tests Piriformis Test Results Negative ESTELA Test Results Negative PT-OP-M Strength Start: 08/16/24 17:19 Freq: Status: Active Protocol: Document 08/17/24 09:01 SAK (Rec: 08/23/24 08:57 SAK [id number]) Hip Strength Hip Manual Muscle Testing Left Flexion (L2) 4- Good- Extension (S1) 3+ Fair+ Abduction 4- Good- Adduction 4- Good- External Rotation 4- Good- Internal Rotation 4- Good- Right Flexion (L2) 3+ Fair+ Extension (S1) 3- Fair- Abduction 3+ Fair+ Adduction 3+ Fair+ External Rotation 4- Good- Knee Strength Knee Manual Muscle Testing Left Flexion (S2) 4+ Good+ Extension (L3) 4+ Good+ Right Flexion (S2) 4 Good Extension (L3) 4 Good Ankle/Foot Strength Ankle and Foot Manual Muscle Testing Left Dorsiflexion (L4) 4 Good Plantarflexion (S1) 4 Good Right Dorsiflexion (L4) 4+ Good+ Plantarflexion (S1) 4- Good- PT-OP-Q Treatments Start: 08/16/24 17:19 Freq: Status: Active Protocol: Document 11/23/24 09:44 [facility] (Rec: 11/23/24 10:32 [facility] Laptop) Neuro Re-Education Treatment Balance Activities obstacle course Details mat with therapads and mat with therapods Reps/Duration X 2 each Comments CGA to minimal assist step up taps Details CGA hands above bars standing on foam Equipment 6 inch step Reps/Duration X10 retro Details CGA, hands on bars first 10 feet then hands above bars Reps/Duration 10 feet X 2 wall fall Reps/Duration X10 Comments Pillow behind back close supervision BOSU Details marching, step ups Reps/Duration 3 min CGA Comments Inc use of rails with step ups , but initiates without use of rail forward march, bck walk Reps/Duration 10 ft x 4 Comments slow and fast tandem balance Details tandem stepping Reps/Duration 10 feet X 6 CGA PT-OP-T Assessment and Plan Start: 08/16/24 17:19 Freq: Status: Active Protocol: Document 11/23/24 09:44 [facility] (Rec: 11/23/24 10:32 [facility] Laptop) Physical Therapy Assessment Goals right hip pain Impairment right lateral hip pain 5/10 pain scale Assisted Goal (LTG) Decrease pain to no greater than 2/10 as measure of decreased pain and improved right hip function Patient reports she hasn't had hip pain since her first visit. LTG Duration goal met activity tolerance Impairment 6 min walk test 1099 ft Assisted Goal (LTG) Improve 6 min walk test to at least 1300 ft. 09/26/2024 6 min walk test 1165. 7 ft 10/13/24: not retested today; 1167.5 ft last session, improved 11/23/24:1200 goal mostly met LTG Duration 11/24/24 strength Impairment impaired functional LE strength stephania; 5x sit to stand 23 sec with use of rea Assisted Goal (LTG) Improve functional LE strength as evidenced by patient able to move from sit to stand 5x in no more than 10 seconds without UE assist and be able to perform a floor transfer independently 09/26/2024 sit to stand X5 16.2 sec 11/23/24: 14.8 LTG Duration goal progress Dynamic balance Impairment impaired dynamic balance, unable to stand on 1 foot Impairment DGI ; FGA 07/25 Temp Recruiter Goal (LTG) Patient will improve dynamic balance and safety as measured by ability to balance on 1 foot for at least 10 seconds 10/13/24: SLS R 5 sec L 1 sec without UE use ( measured post DGI, sit to stand X 5) 11/23/24: DGI , FGA . LTG Duration 11/24/24 Assessment Summary Assessment Goals mostly met. Patient has been issued HEP, poor compliance, encouraged compliance as well as community exercise programs especially [facility]. No further PT needs at this time. Physical Therapy Plan Frequency and Duration Frequency of Treatment 2x/Week Duration of treatment (weeks) 6 Plan of Care Start Date 10/13/24 Plan of Care End Date 11/24/24 Therapeutic Interventions Therapeutic Interventions Balance Training,Home Exercise Program,Neuromuscular Re- education,Patient/Caregiver Education,Self-Care/Home Management,Therapeutic Activities,Therapeutic Exercises Modalities Cold Pack/Ice Massage,Hot Packs Discharge Physical Therapy Discharge Comments goals mostly met
== END 2024-11-23 13:29 | disposition home or self-care (01) ==
LOC: PHYS 09:45
PROVIDERS: Family Provider Family Medicine; PCP Family Medicine; Referring Provider Family Medicine; Visit Provider Family Medicine
DX: I63.311 Cerebral infarction due to thrombosis of right middle cerebral artery (principal)
CPT/HCPCS: 97110; 97112; 97116; 97162; 97530; 97535

== ENCOUNTER → 2025-07-17 07:57 | Outpatient (CLI) | payer MEDICARE, SELFPAY ==
--- NOTE | 2025-07-17 07:59 | DI.ECHO.S_ITS ---
[facility] : : [facility] : : [address] . : : [place], : : [place] [id number] : : Phone: [phone] Echocardiogram Report + + :Name: GORDO ALFRED Study Date: 07/17/2025 Height: 64 in : :[facility] ReadingLocation: Weight: 130 lb : : Gender: Female BSA: 1.6 m2 : :: 1935 Age: 89 yrs BP: 147/78 mmHg: :Reason For Study: CARDIOMYOPATHY, PERICARDIAL EFFUSION : :Ordering Physician: JUAN DAVID, : :KELSEA Meredith Performed By: Danilo Nice : :Referring: KELSEA BUTLER : + + Interpretation Summary The ejection fraction is estimated to be 50-55%. Diastolic function is indeterminate. The right ventricle is normal in size and function. There is mild aortic regurgitation. Pulmonary artery pressures cannot be estimated because of the lack of a measurable TR jet velocity but the IVC suggests a CVP of around 3 mmHg. There is a small to moderate pericardial effusion noted. There are no echocardiographic indications of cardiac tamponade. Compared to the prior study 11/03/2024, the left ventricle appears slightly more dynamic. Procedure: A two-dimensional transthoracic echocardiogram with color flow and Doppler was performed. The study quality was technically adequate. There is no prior echocardiogram noted for this patient. The patient was in normal sinus rhythm during the exam. Left Ventricle: The left ventricle is normal in size and wall thickness. There is no ventricular septal defect visualized. The ejection fraction is estimated to be 50-55%. Diastolic function is indeterminate. Right Ventricle: The right ventricle is normal in size and function. Atria: The left atrial size is normal. Right atrial size is normal. The atrial septum is aneurysmal. There is no Doppler evidence for an interatrial shunt. Mitral Valve: The mitral valve leaflets appear borderline thickened. There is trace mitral regurgitation. Aortic Valve: The aortic valve is moderately calcified. There is no aortic valve stenosis. There is mild aortic regurgitation. Tricuspid Valve: The tricuspid valve leaflets are thin and pliable. There is mild tricuspid regurgitation. Pulmonary artery pressures cannot be estimated because of the lack of a measurable TR jet velocity but the IVC suggests a CVP of around 3 mmHg. Pulmonic Valve: The pulmonic valve is not well seen, but is grossly normal. There is no pulmonic valvular regurgitation. Great Vessels: The aortic root is normal size. The ascending aorta could not be visualized. The pulmonary artery is not well visualized, but is probably normal size. The IVC is of normal diameter and collapses greater than 50% with a sniff. This suggests a low right atrial pressure of 3 mm Hg. Pericardium/ Pleura There is a small to moderate pericardial effusion noted. There are no echocardiographic indications of cardiac tamponade. There is no pleural effusion. MMode/2D Measurements & Calculations LVIDd: 3.9 cm AoV Openin.4 cm LVIDs: 2.9 cm LVOT diam: 2.1 cm IVSd: 1.5 cm Ao root diam: 3.2 cm LVPWd: 0.82 cm LV calixto. diameter/BSA (cm/m^2): 2.4 LV sys. diameter/BSA (cm/m^2): 1.8 FS: 26.0 % EPSS: 0.96 cm LA A2 area: 15.6 cm2 RA long axis: 4.4 cm LA A4 area: 14.6 cm2 RA area: 14.3 cm2 LA length (vol): 4.5 cm RA vol: 39.4 ml LA vol: 42.9 ml RA : 24.2 ml/m2 LA vol index: 26.3 ml/m2 RVD1 (basal): 3.2 cm IVC diam: 1.1 cm RVD2 (mid): 2.2 cm TAPSE: 2.7 cm Doppler Measurements & Calculations Ao V2 max: 127.3 cm/sec LVOT Max Tyree: 70.4 cm/sec Ao V2 mean: 96.3 cm/sec LV V1 max P.0 mmHg Ao V2 VTI: 23.8 cm LV V1 VTI: 15.4 cm Ao max P.5 mmHg Ao mean P.0 mmHg TIFFANY(I,D): 2.2 cm2 MV E max tyree: 57.9 cm/sec TIFFANY(V,D): 1.9 cm2 MV A max tyree: 91.6 cm/sec TIFFANY indexed to BSA (cm^2/m^2): 1.3 MV E/A: 0.63 sev ratio: 0.65 Med Peak E' Tyree: 4.7 cm/sec E/E' med: 12.3 Lat Peak E' Tyree: 5.2 cm/sec E/E' lat: 11.2 E/e' average: 11.7 MV dec time: 0.32 sec TR max tyree: 253.4 cm/sec TR max P.7 mmHg PA V2 max: 110.2 cm/sec SV(LVOT): 51.9 ml PA V2 mean: 68.5 cm/sec PA mean P.1 mmHg PA pr(Accel): 46.5 mmHg Reading Physician:09:[id number] AM
== END ==
PROVIDERS: Family Provider Family Medicine; PCP Family Medicine; Referring Provider Internal Medicine Cardiovascular Disease; Visit Provider Internal Medicine Cardiovascular Disease
DX: I50.20 Unspecified systolic (congestive) heart failure (principal); I08.2 Rheumatic disorders of both aortic and tricuspid valves; I31.39 Other pericardial effusion (noninflammatory)
CPT/HCPCS: 93306